=== PATIENT | female | born 1940 | race Caucasian/White ===

== ENCOUNTER → 2018-04-28 12:02 | Outpatient (CLI) | payer MEDICARE, SELFPAY ==
[2017-10-27 12:18] VITALS: BMI 29.9
== END ==
PROVIDERS: Family Provider Family Medicine; PCP Family Medicine
DX: R30.0 Dysuria (principal)
CPT/HCPCS: 87086; 87088; 87186

== ENCOUNTER → 2018-05-25 16:56 | Outpatient (CLI) | payer MEDICARE, SELFPAY ==
[2017-10-27 12:18] VITALS: BMI 29.9
== END ==
PROVIDERS: Family Provider Family Medicine; PCP Family Medicine; Referring Provider Emergency Medicine; Visit Provider Emergency Medicine
DX: R30.0 Dysuria (principal)
CPT/HCPCS: 87086; 87088; 87186

== ENCOUNTER → 2018-06-06 12:16 | Outpatient (CLI) | payer MEDICARE, SELFPAY ==
--- NOTE | 2018-06-06 12:20 | US_ITS ---
STUDY: RENAL ULTRASOUND - COMPLETE REASON FOR EXAM: Female, 78 years old. Recurring UTIs. TECHNIQUE: Ultrasound evaluation of the kidneys was performed with real-time and static hugo-scale imaging. COMPARISON: None. FINDINGS: RIGHT KIDNEY: Normal location of the right kidney, which is normal in size. The right kidney measures 10.5 cm. There is a normal cortex of the right kidney. The renal cortex measures 1.3 cm. There is no right renal mass or cyst. There are no right renal calculi. There is an extra-renal pelvis of the right kidney. There is no distention of the renal calyces. DISTAL RIGHT URETER: There is non-visualization of the distal right ureter. There is no demonstrated right ureterovesical junction calculus. There is no demonstrated right ureteral jet. LEFT KIDNEY: Normal location of the left kidney, which is normal in size. The left kidney measures 10.3 cm. There is a normal cortex of the left kidney. The renal cortex measures 1.3 cm. There is no left renal mass or cyst. There are no left renal calculi. There is no left hydronephrosis. DISTAL LEFT URETER: There is non-visualization of the distal left ureter. There is no demonstrated left ureterovesical junction calculus. There is no demonstrated left ureteral jet. BLADDER: The distended urinary bladder has a volume of 800 ml. There is a normal wall thickness of the distended urinary bladder. There is no demonstrated mass within the urinary bladder. There are no demonstrated bladder calculi. US/Kidney and Bladder IMPRESSION: 1. Normal ultrasound of the kidneys. 2. Markedly distended urinary bladder without mass or filling defect. Electronically Signed: Nacho Bhandari DO at 23:55 EDT Tel [phone], Service support ,
== END ==
PROVIDERS: Family Provider Family Medicine; PCP Family Medicine; Referring Provider Urology; Visit Provider Urology
DX: N39.0 Urinary tract infection, site not specified (principal)
CPT/HCPCS: 76770

== ENCOUNTER 2018-07-24 11:23 | Day surgery (SDC) | payer MEDICARE, SELFPAY ==
[2018-07-24 11:47] VITALS: BP 137/71; PULSE 64; RESP 18; TEMP 37.1; O2SAT 96; BMI 32.3
[2018-07-24] MEDS: Povidone Iodine 30 ML Opthalmic Sol 1 DRP (12:33)
[2018-07-24] MEDS: Tetracaine 0.5% Ophthalmic Bottle 1 DRP (13:15)
[2018-07-24] MEDS: Tetracaine 0.5% Ophthalmic Bottle 1 DRP OP (13:15)
--- NOTE | 2018-07-24 13:29 | DCINST_ITS ---
Allergies/Adverse Reactions: Allergies No Known Allergies Allergy (Unverified 07/17/18 12:55) Medications to take at Discharge Ascorbic Acid [Vitamin C] 500 mg PO DAILY 07/17/18 Calcium Carbonate/Vitamin D3 [Caltrate 600 Plus D3 Tablet] 2 each PO DAILY 07/17/18 Cholecalciferol (Vitamin D3) [Vitamin D3] 2,000 unit PO DAILY 07/17/18 Cranberry Fruit [Cranberry] 800 mg PO DAILY 07/17/18 Multivitamin with Minerals [Multiple Vitamin] 1 each PO DAILY 07/17/18 Omeprazole Magnesium [Prilosec Otc] 20 mg PO PRN PRN 07/17/18 Cataract Instructions: -Take a pain reliever such as Tylenol, Aspirin or Ibuprofen if needed for eye aching or pain. If this is not enough relief for you pain, call your doctor (or the doctor educational technology coordinator), even at night. -You are scheduled for a follow-up appointment at [facility] the day after surgery. You should have someone drive you. -Transient pain and irritation are due to the incision that was made at the time of surgery and do not indicate any trouble. Our office numbers are . If there is no answer, or if it is after our normal business hours, call your surgeon. My home phone number is: Dr. Donita Meeks INSTRUCTIONS FOLLOWING TOPICAL ANESTHETIC CATARACT SURGERY Protect operated eye with glasses or metal shield at all times. Instill one drop of Polytrim (or other antibiotic drop), one drop of Prednisolone and one drop of Acular in the operated eye four times a day (breakfast, lunch, dinner, and bedtime) until the doctor tells you to quit or decrease them. Wait 3-5 minutes between each drop. Please begin these immediatel y upon arriving at home. if your surgery is in t he afternoon, try to use the drops at least three more times the day of surgery and again the following morning before your appointment. INSTRUCTIONS FOLLOWING RETROBULBAR CATARACT SURGERY Keep the eye patch and metal shield on until you see your surgeon the day after surgery - these will be removed in the office that day. Do not drive while the patch is on your eye. You will be instructed about the use of drops for the operated eye at that visit. Primary Care Physician: Virgilio Henry MD [Primary Care Provider] -
--- NOTE | 2018-07-24 13:29 | PCM.OPRPT ---
Report of Operation Date of Procedure: 07/24/18 Pre-Operative Diagnosis: Cataract Left Eye Post-Operative Diagnosis: same Surgery/Procedure Performed:: PEM IOL OS Description of Surgical Findings:: cataract Type of Anesthesia:: MAC and Topical Anesth Specimen's removed: none Estimated Blood Loss (mL): none - Complications none
[2018-07-24 13:30] VITALS: BP 111/63; BP 137/71; PULSE 51; RESP 16; TEMP 36.1; O2SAT 95
[2018-07-24 13:35] VITALS: BP 117/75; BP 137/71; PULSE 66; RESP 16; O2SAT 92
[2018-07-24 13:40] VITALS: BP 117/70; BP 137/71; PULSE 59; RESP 16; O2SAT 93
[2018-07-24 13:45] VITALS: BP 110/69; BP 137/71; PULSE 51; RESP 16; TEMP 36.3; O2SAT 92
[2018-07-24 14:10] VITALS: BP 137/71
== END 2018-07-24 14:18 | disposition home or self-care (01) ==
LOC: SDC 11:24 → AC 11:29
PROVIDERS: Family Provider Family Medicine; PCP Family Medicine; Referring Provider Ophthalmology; Visit Provider Ophthalmology
PROC: (CPT 66984; principal; 2018-07-24 12:50)
DX: H25.812 Combined forms of age-related cataract, left eye (principal); H16.223 Keratoconjunctivitis sicca, not specified as Sjogren's, bilateral
CPT/HCPCS: 00142; 66984; J7120

== ENCOUNTER → 2018-09-15 | Outpatient (CLI) | payer MEDICARE, SELFPAY ==
[2018-09-15 14:00] LABS: Hematocrit 43.2 % (37-47); Hemoglobin 14.4 g/dl (12.0-15.0); Mean Corp Hgb Conc 33.3 g/gl (32-36); Mean Corpuscular Hgb 30.8 pg (27.0-32.0); Mean Corpuscular Volume 92.5 fL (81-99); Mean Platelet Vol. 10.3 fl (6.2-12.0); Platelet Count 219 K/mm3 (150-450); RBC Distribution Width SD 46.9 fl (35.1-43.9); Red Blood Count 4.67 M/mm3 (4.2-5.4); White Blood Count 5.6 K/mm3 (4.4-11.0)
[2018-09-15 14:01] LABS: Scan Indicated on CBC? Y/N NO
[2018-09-15 14:12] LABS: Anion Gap 4 (5-15); BUN 17 mg/dL (7-18); Chloride 108 mmol/L (98-107); Creatinine, Serum 0.66 mg/dL (0.55-1.02); EST Glomerular Filtration Rate 93 mL/min (>60); Est Glom Filt Rate - Afr Amer 113 mL/min (>60); Glucose 85 mg/dL (74-106); Sodium Level 141 mmol/L (136-145); Thyroid Stim Hormone (TSH) 2.37 uIU/mL (0.358-3.74)
== END | disposition home or self-care (01) ==
LOC: LABSPEC 13:26
PROVIDERS: Family Provider Family Medicine; PCP Family Medicine; Referring Provider Physician Assistant; Visit Provider Physician Assistant
DX: R00.2 Palpitations (principal)
CPT/HCPCS: 80048; 82533; 84443; 85027

== ENCOUNTER → 2018-09-29 | Outpatient (CLI) | payer MEDICARE, SELFPAY ==
--- NOTE | 2018-09-29 12:22 | STRESSREP_ITS ---
Stress Test Report Date: 09-29-18 Procedure: Exercise tolerance test Indications: Palpitations Consent: Per the patient Procedure: The patient exercised on a Marcel protocol for 6 minutes completing stage II achieving a peak heart rate of 150 bpm (104 % predicted maximal heart rate) with a peak blood pressure 158/82 mmHg and a peak MET capacity of approximately 7 MET's. The baseline ECG demonstrated sinus bradycardia. The peak exercise ECG demonstrated somatic/motion artifact with no obvious ECG changes. There was a rare PVC during exercise and an occasional PAC during recovery. The functional capacity was considered good. The patient had no complaint of chest discomfort during exercise or recovery. The examination was discontinued secondary to dyspnea. Impression: 1. Technically adequate (percent predicted maximal heart rate greater than 85%) exercise tolerance test 2. Peak exercise ECG with somatic/motion artifact with no obvious ECG changes 3. There was a rare PVC during exercise and an occasional PAC during recovery This note was generated with [employer] software. It may contain incorrect words, spelling, and punctuation that were not noted in checking the note before signing.
== END | disposition home or self-care (01) ==
LOC: CVS 11:11
PROVIDERS: Family Provider Family Medicine; PCP Family Medicine; Referring Provider Physician Assistant; Visit Provider Physician Assistant
DX: R07.89 Other chest pain (principal); R00.2 Palpitations
CPT/HCPCS: 93017

== ENCOUNTER → 2018-12-05 | Outpatient (CLI) | payer MEDICARE, SELFPAY ==
[2018-12-05 12:29] LABS: Cholesterol 188 mg/dL (200); Glucose 100 mg/dL (74-106); High Density Lipoprotein 67 mg/dL; Triglycerides 90 mg/dL; Very Low Density Lipoprotein 18 mg/dL (5-40)
== END | disposition home or self-care (01) ==
LOC: LABSPEC 11:31
PROVIDERS: Family Provider Family Medicine; PCP Family Medicine; Referring Provider Family Medicine; Visit Provider Family Medicine
DX: Z13.1 Encounter for screening for diabetes mellitus (principal); Z13.6 Encounter for screening for cardiovascular disorders; Z13.220 Encounter for screening for lipoid disorders
CPT/HCPCS: 80061; 82947

== ENCOUNTER → 2019-08-23 09:20 | Outpatient (CLI) | payer MEDICARE, SELFPAY ==
[2019-08-23 10:38] LABS: Creatinine, Serum 0.56 mg/dL (0.55-1.02); EST Glomerular Filtration Rate 111 mL/min (>60); Est Glom Filt Rate - Afr Amer 134 mL/min (>60)
== END ==
PROVIDERS: PCP Family Medicine; Referring Provider Specialist; Visit Provider Specialist
DX: R22.32 Localized swelling, mass and lump, left upper limb (principal)
CPT/HCPCS: 36415; 82565

== ENCOUNTER 2020-06-10 17:42 | Emergency (ER) | payer MEDICARE, SELFPAY ==
[2020-06-10 17:42] VITALS: BP 156/100; PULSE 72; PULSE 86; RESP 16; TEMP 36.3; O2SAT 96; BMI 36.6
--- NOTE | 2020-06-10 17:51 | EKG12_ITS ---
Test Reason : CP Blood Pressure : / mmHG Vent. Rate : 074 BPM Atrial Rate : 074 BPM P-R Int : 142 ms QRS Dur : 092 ms QT Int : 388 ms P-R-T Axes : 052 -12 023 degrees QTc Int : 430 ms Normal sinus rhythm with sinus arrhythmia Normal ECG Confirmed by SANTHOSH MO, COLE ([id number]), digital editor ZACH LAMA ([id number]) on 06/12/2020 12:56:55 PM Referred By: YOHANNES Confirmed By:COLE TREVIZO MD
--- NOTE | 2020-06-10 17:53 | ED.DCSUM_ITS ---
History of Present Illness Chief Complaint: Chest Pain Informant: Patient Onset: Today Context: Gradual Onset Timing: Continuous Current Severity: Mild Maximum Severity: Moderate Narrative: The patient is a 80-year-old female with no significant medical history who is on no prescription medications the presents to the emergency department with chest tightness. Patient states she was in her normal state of health. She states she was sitting reading on her iPad. She states that she had a slight twinge in her chest. She states shortly after it began to increase. She states it felt like she had 8 something and it was stuck. She denies being short of breath or nauseated. The pain did not radiate to her neck or arm. She states she is never had pain like this before. She does have a history of aortic stenosis. She is never had a heart attack, heart failure, or cardiac intervention. She states she is been in her normal state of health. Prior similar symptoms: No Recent Illness/Hospitalization: No Past Medical History - Allergies and Home Meds Allergies/Adverse Reactions: Allergies No Known Allergies Allergy (Unverified 07/17/18 12:55) Primary Care Physician: Virgilio Henry MD [Primary Care Provider] - Prior records reviewed: Yes Past Medical History: None Surgical History: noncontributory Smoking Status: Never smoker Review of Systems General: Denies: Chills, Fever, Sweats Eyes: Denies: Visual changes - bilaterally, Diplopia ENT: Denies: Rhinorrhea, Sore throat Cardiovascular: Denies: Chest pain, Palpitations Respiratory: Denies: Dyspnea, Cough, Dyspnea on exertion Gastrointestinal: Denies: Abdominal pain, Nausea, Vomiting, Diarrhea, Melena, Hematochezia Genitourinary: Denies: Dysuria, Hematuria, Frequency Musculoskeletal: Denies: Back pain, Extremity Pain Skin: Denies: Rash, Wounds Neurological: Denies: Headache, Weakness, Numbness Physical Exam Vital Signs/Narrative: Vital Signs Temp Pulse Resp BP Pulse Ox 06/10/20 17:42 97.4 F L 72 16 156/100 H 96 Inital Vital Signs reviewed: Yes General: Well nourished, Well developed, No Acute Distress Head: Normocephalic, Atraumatic Eyes: Perrl, EOMI ENT: Moist mucous membranes, No rhinorrhea Neck: Supple, Nontender Cardiovascular: Regular rate, Regular rhythm, No murmurs Respiratory: No distress, CTA bilaterally, Chest nontender Abdomen: Soft, Nontender, Nondistended, Normal bowel sounds Back: Nontender, Normal Inspection Extremities: Nontender, No edema Skin: Normal color, No rash Neurological: Alert, Oriented x3, Cranial nerves II-XII grossly intact, Normal Strength, Normal Sensation Psychological: Normal affect, Normal Mood Diagnostic/Tx/Re-eval Chest X-Ray - ED: 1 View, Read by ED Physician, Normal, Heart, Lungs, Mediastinum, Bony Structures, No Acute Disease Clinical Impression(s) from Imaging Studies Chest X-Ray 06/10/20 18:05 IMPRESSION: No acute cardiopulmonary disease or major change. Electronically Signed: Nacho ThonyDO at 18:46 EDT Tel [phone], Service support , Abnormal Lab Results 06/10/20 06/10/20 18:15 18:15 WBC 3.8 L RBC 4.75 Hgb 14.8 Hct 44.7 MCV 94.1 MCH 31.2 MCHC 33.1 RDW Std Deviation 43.6 RDW Coeff of Evangelist 12.7 Plt Count 235 MPV 9.2 Immature Gran % (Auto) 1.900 H Neut % (Auto) 62.7 Lymph % (Auto) 32.4 [place] % (Auto) 1.1 Eos % (Auto) 1.6 Baso % (Auto) 0.3 Absolute Neuts (auto) 2.4 Absolute Lymphs (auto) 1.22 Nucleated RBC % 0 Sodium 141 Potassium 3.6 Chloride 106 Carbon Dioxide 30.0 Anion Gap 5 BUN 16 Creatinine 0.71 Estim Creat Clear Calc 33.30 Est GFR (MDRD) Af Amer 103 Est GFR (MDRD) Non-Af 85 BUN/Creatinine Ratio 22.6 H Glucose 90 Calcium 9.1 Troponin I < 0.015 - Rhythm Strip Rhythm Strip: Sinus Rhythm Rate: 80 Ectopy: None - EKG Initial EKG Interpretation: Sinus Rhythm, No Acute Injury Pattern Prior: Unchanged - Medical Decision Making Patient presents with burning and feeling like something is stuck is how she describes her chest pain. EKG was obtained. Was sinus rhythm without acute isc hemia. Was unchanged from prior. The patient's pain status seem very atypical. She had a stress test less than 2 years ago which was unremarkable. She is also had a normal heart catheterization. Patient was given aspirin. She was also given a GI cocktail. GI cocktail, her symptoms have totally resolved. Screening labs were obtained. Cardiac enzymes were normal. Chest x-ray reviewed by myself and the radiologist shows no focal infiltrative process, pneumothorax, or anything dangerous. On reevaluation, she continues to be resting comfortably. At this point, her heart score is only 2 for her age. I do not feel that she requires admission or further work-up. She is comfortable with this plan of care and will be discharged home. Impression 1. Atypical chest pain ED Disposition - Plan for ED Patient: Instructions: ED Chest Pain, Noncardiac Referrals: Virgilio Henry MD [Primary Care Provider] -
[2020-06-10] MEDS: Mag Hydrox/Al Hydrox/Simeth 30 ML UDC PO (18:02)
[2020-06-10] MEDS: Aspirin 81 MG TAB.CHEW 324 MG PO (18:02)
--- NOTE | 2020-06-10 18:05 | RAD_ITS ---
STUDY: X-RAY CHEST REASON FOR EXAM: Female, 80 years old. Chest pain. TECHNIQUE: Single AP portable view of the chest. COMPARISON: 02/25/2014. FINDINGS: The lungs are mildly hypoexpanded. Question minimal linear atelectasis at the right lung base. The lungs are otherwise clear. There is no demonstrated pleural abnormality. Normal size heart. Normal mediastinum and ronnie. Normal visualized pulmonary arteries. There is atherosclerotic calcification of the aortic arch with tortuosity. There are diffuse degenerative changes of the visualized thoracic spine. Normal visualized ribs, clavicles, and shoulders. There is no demonstrated abnormality of the visualized soft tissue structures of the upper abdomen. RAD/Chest 1 View (Portable) IMPRESSION: No acute cardiopulmonary disease or major change. Electronically Signed: Nacho Bhandari DO at 18:46 EDT Tel [phone], Service support ,
[2020-06-10] MEDS: 0.9% Normal Saline 1,000 ML 150 ML IV (18:13)
[2020-06-10 18:17] VITALS: O2SAT 96
[2020-06-10 18:21] LABS: Absolute Lymphocyte Count 1.22 X10^3/uL (0.83-4.51); Absolute Neutrophil Count 2.4 X10^3/uL (2.0-7.7); Basophil# 0.01 X10^3/uL; Basophil% 0.3 % (0-1); Eosinophil# 0.06 X10^3/uL; Eosinophils% 1.6 % (0-5); Hematocrit 44.7 % (37-47); Hemoglobin 14.8 g/dL (12.0-15.0); Lymphocyte # 1.22 X10^3/ul (4.0); Lymphocyte % 32.4 % (19-41); Mean Corp Hgb Conc 33.1 g/dL (32-36); Mean Corpuscular Hgb 31.2 pg (27.0-32.0); Mean Corpuscular Volume 94.1 fL (81-99); Mean Platelet Vol. 9.2 fl (6.2-12.0); Monocyte# 0.04 X10^3/uL; Monocyte% 1.1 % (0-10); NRBC Flagged by Analyzer 0 % (0-5); Neutrophil # 2.37 X10^3/uL (2.7-7.7); Neutrophil % 62.7 % (47-70); Platelet Count 235 K/mm3 (150-450); RBC Distribution Width CV 12.7 % (11.6-14.6); RBC Distribution Width SD 43.6 fl (35.1-43.9); Red Blood Count 4.75 M/mm3 (4.2-5.4); White Blood Count 3.8 K/mm3 (4.4-11.0)
[2020-06-10 18:40] LABS: Anion Gap 5 (5-15); BUN 16 mg/dL (7-18); BUN/Creat Ratio 22.6 RATIO (10-20); Calcium,Total 9.1 mg/dL (8.5-10.1); Chloride 106 mmol/L (98-107); Creatinine, Serum 0.71 mg/dL (0.55-1.02); EST Glomerular Filtration Rate 85 mL/min (>60); Est Glom Filt Rate - Afr Amer 103 mL/min (>60); Glucose 90 mg/dL (74-106); Potassium 3.6 mmol/L (3.5-5.1); Sodium Level 141 mmol/L (136-145)
[2020-06-10 18:59] VITALS: BP 169/77; PULSE 84; RESP 14; O2SAT 95
[2020-06-10 19:00] VITALS: PULSE 85
== END 2020-06-10 19:07 | disposition home or self-care (01) ==
LOC: ED 18:49
PROVIDERS: Emergency Provider Emergency Medicine; PCP Family Medicine
DX: R07.89 Other chest pain (principal)
CPT/HCPCS: 71045; 80048; 84484; 85025; 93005; 99284; J7030

== ENCOUNTER → 2020-09-10 12:20 | Outpatient (CLI) | payer MEDICARE, SELFPAY | PROVIDERS: PCP Family Medicine; Visit Provider Physician Assistant | DX: R10.13 Epigastric pain (principal); R11.0 Nausea | CPT/HCPCS: 87086; 87088 ==

== ENCOUNTER 2020-10-04 08:16 | Observation (INO) | payer MEDICARE, SELFPAY ==
[2020-10-04] VITALS (13 sets, daily range): BP systolic 106–142; BP diastolic 49–84; PULSE 66–96; RESP 14–18; TEMP 36.4–36.9; O2SAT 89–99; BMI 36.8; BMI 35.9
--- NOTE | 2020-10-04 08:30 | EKG12_ITS ---
Test Reason : SYNCOPE Blood Pressure : / mmHG Vent. Rate : 070 BPM Atrial Rate : 070 BPM P-R Int : 140 ms QRS Dur : 086 ms QT Int : 424 ms P-R-T Axes : 057 -09 036 degrees QTc Int : 457 ms Normal sinus rhythm Normal ECG Confirmed by SUDHAKAR MO, ESPERANZA ([id number]), editor dictionary ZACH LAMA ([id number]) on 10/08/2020 8:55:49 AM Referred By: JOSEFA Confirmed By:ESPERANZA DE LA FUENTE MD
--- NOTE | 2020-10-04 08:31 | EX.ED.DYSGE1 ---
HPI History of Present Illness Chief Complaint: Syncope Detail of Chief Complaint: Not feeling well and near syncope Informant: patient Narrative Narrative: Patient presents to the emergency department via EMS from home. Patient states that she woke up this morning and was not feeling very good so she went into the bathroom to take her temperature and remembers feeling somewhat lightheaded and kind fell to the ground but did not lose consciousness. Patient apparently went back to bed after taking some ibuprofen. She started feeling a little bit itchy and lightheaded and EMS was called. She denies chest pain currently. She denies shortness of breath. Patient has been vaccinated against Covid. Patient states that she feels like she came down with a cold 2 days ago. She has had a runny nose and congestion. She denies cough. She was seen in the emergency department for chest heaviness about a month ago but was not admitted. Patient was diagnosed with GERD. EMS noted patient to be hypoxic with O2 sat in the upper 80s. Patient also had orthostatic vital signs performed by EMS and her blood pressure dropped into the 80s with standing and she was lightheaded. Prior similar symptoms: No PFSH PFSH Medical History (Updated 10/04/20 @ 12:[address] Yolis Castañeda, DO) history of bladder lift history of eye lid surgery History of neuroma Home Medications ascorbic acid (vitamin C) 500 mg PO DAILY 07/17/18 [History Last Taken Unknown] calcium carbonate-vitamin D3 [Caltrate 600 Plus D3 Tablet] 2 ea PO DAILY 07/17/18 [History Last Taken 07/24/18 0800] cholecalciferol (vitamin D3) [Vitamin D3] 2,000 unit PO DAILY 07/17/18 [History Last Taken Unknown] cranberry fruit 800 mg PO DAILY 07/17/18 [History Last Taken Unknown] multivitamin with minerals [Multiple Vitamin] 1 ea PO DAILY 07/17/18 [History Last Taken Unknown] omeprazole magnesium [Prilosec Otc] 40 mg PO DAILY 07/17/18 [History Last Taken Unknown] Allergy/AdvReac Type Severity Reaction Status Date / Time No Known Allergies Allergy Unverified 10/04/20 08:27 Surgical History History of appendectomy Social History (Updated 10/27/17 @ 14:38 by Roberto LOPEZ, PA) Smoking Status: Never smoker alcohol intake: never ROS ROS ED Constitutional Constitutional ED: Reports systems reviewed and no addt'l complaints, except as documented; Denies body ache(s), change in weight or chills Eyes Eyes: Denies acute decrease in peripheral vision, change in vision, double vision or loss of vision ENT ENT ED: Reports none and rhinorrhea; Denies ear pain, lip swelling, loss taste/smell, neck pain, otalgia or sore throat Cardiovascular Cardiovascular: Reports none; Denies abdominal pain, chest pain with activity, leg edema, lightheadedness, palpitations, rapid heart rate or syncope Respiratory/Chest Respiratory/Chest: Reports none; Denies change in mental status, dry cough, dyspnea, hemoptysis, shortness of breath at rest or shortness of breath with exertion Gastrointestinal Gastrointestinal: Reports none; Denies abdominal pain, change in stool character, diarrhea, hematemesis, hematochezia, melena, rectal bleeding or vomiting Genitourinary Genitourinary ED: Reports none; Denies abdominal discomfort, anuria, dysuria, genital pain or polyuria Musculoskeletal Musculoskeletal: Reports none; Denies arthralgias, back pain, difficulty walking, extremity pain, muscle weakness or myalgias Integumentary Reports none; Denies abscess or rash Neurologic Neurologic: Reports none and other Details: Near syncope, dizziness ; Denies abnormal gait, confusion, focal weakness, frequent falls, headache(s), loss of vision, numbness, paresthesias, radicular pain, vertigo or weakness Psychiatric Psychiatric: Reports systems reviewed and no addt'l complaints, except as documented and none; Denies behavioral changes, confusion, difficulty concentrating, hallucinations, suicidal ideation, tactile hallucinations or visual hallucinations Endocrine Endocrinology: Denies none, cold intolerance, excessive sweating, fatigue or heat intolerance Hematologic/Lymphatic Hematologic/Lymphatic: Reports none; Denies anemia, easy bleeding or easy bruising Allergic/Immunologic Allergic/Immunologic ED: Denies as per HPI, none, lip swelling, mouth swelling, throat swelling, tongue swelling or hives EXAM Physical Exam Const Vital Signs: 10/04/20 08:22 10/04/20 08:26 10/04/20 08:41 Temperature 97.5 F L 97.5 F L Temperature Source Oral Oral Pulse Rate 85 83 Respiratory Rate 18 16 Respiratory Effort Normal Respiratory Pattern Normal Blood Pressure 126/49 H 126/49 H Blood Pressure Mean 74 74 Pulse Ox 89 89 Oxygen Delivery Method Room Air Room Air Oxygen Flow Rate (L/min) 0 10/04/20 09:00 10/04/20 10:00 10/04/20 11:00 Temperature Temperature Source Pulse Rate 66 88 89 Respiratory Rate 15 14 16 Respiratory Effort Respiratory Pattern Blood Pressure 124/84 H 117/72 113/70 Blood Pressure Mean 97 87 84 Pulse Ox 99 93 93 Oxygen Delivery Method Nasal Cannula Nasal Cannula Nasal Cannula Oxygen Flow Rate (L/min) 2 2 2 Positive well nourished and well developed General Appearance ED: well developed and NAD HEENT Reports TM's clear and moist mucous membranes normocephalic and atraumatic; Negative for trauma or tenderness Tympanic Membrane ED: Yes TM's clear Eyes PERRL and EOMs intact bilaterally General Eye ED: Negative for pale conjunctiva or scleral icterus Neck no lymphadenopathy, supple and no JVD General: Negative for tenderness Chest Wall inspection of chest normal and palpation of chest normal Chest: Negative for tenderness Resp normal respiratory effort and clear to auscultation bilaterally Effort and Inspection: Negative for respiratory distress or pain with movement Auscultation: Negative for rhonchi, wheezes or diminished lung sounds Cardio regular rate, regular rhythm, S1 normal heart sound, S2 normal heart sound and no murmurs Peripheral Pulses: pulses 2+ throughout GI normal to inspection, nondistended, normoactive bowel sounds, soft to palpation, non-tender, non-distended and no masses Back/Spine no CVA tenderness and no thoracic nor lumbar tenderness Extremity normal to inspection General Extremety ED: Negative for edema General Extremity: Negative for edema Neuro oriented x3, CN's II-XII intact bilaterally, no sensory deficits noted and gait normal Sensorium / Orientation: awake, alert, oriented to person, oriented to place and oriented to time Motor Exam: strength 5/5 throughout and strength abnormal Psych mental status grossly normal Skin no rashes or lesions noted and no wounds MDM MDM MDM Narrative Medical decision making narrative: Etiology of hypotension unclear I suspect patient may have possibly vasovagal leading to her hypotension. She was orthostatic by EMS. Etiology of hypoxemia unclear although now on room air she saturating in the mid 90s. Patient will be discussed with hospitalist evaluate for admission for observation and IV fluids. Lab Data Attestation: I reviewed the patient's lab results. Labs: Laboratory Results - last 24 hr 10/04/20 10/04/20 10/04/20 08:40 08:40 08:40 WBC 3.6 L RBC 4.92 Hgb 15.2 H Hct 45.6 MCV 92.7 MCH 30.9 MCHC 33.3 RDW Std Deviation 43.5 RDW Coeff of Evangelist 12.8 Plt Count 198 MPV 9.2 Immature Gran % (Auto) 0.300 Neut % (Auto) 73.5 H Lymph % (Auto) 22.8 [place] % (Auto) 1.4 Eos % (Auto) 1.7 Baso % (Auto) 0.3 Absolute Neuts (auto) 2.6 Absolute Lymphs (auto) 0.81 L Nucleated RBC % 0 D-Dimer Quant (PE/DVT) 1.01 H* Sodium 139 Potassium 3.2 L Chloride 105 Carbon Dioxide 27.0 Anion Gap 7 BUN 13 Creatinine 0.78 Estim Creat Clear Calc 33.30 Est GFR (MDRD) Af Amer 91 Est GFR (MDRD) Non-Af 75 BUN/Creatinine Ratio 16.6 Glucose 141 H Calcium 8.6 Troponin I High Sens 6.1 B-Natriuretic Peptide Urine Color Urine Clarity Urine pH Ur Specific [place] Urine Protein Urine Glucose (UA) Urine Ketones Urine Occult Blood Urine Nitrite Urine Bilirubin Urine Urobilinogen Ur Leukocyte Esterase Urine RBC Urine WBC Ur Squamous Epith Cells Urine Bacteria Urine Mucus 10/04/20 10/04/20 08:40 09:22 WBC RBC Hgb Hct MCV MCH MCHC RDW Std Deviation RDW Coeff of Evangelist Plt Count MPV Immature Gran % (Auto) Neut % (Auto) Lymph % (Auto) [place] % (Auto) Eos % (Auto) Baso % (Auto) Absolute Neuts (auto) Absolute Lymphs (auto) Nucleated RBC % D-Dimer Quant (PE/DVT) Sodium Potassium Chloride Carbon Dioxide Anion Gap BUN Creatinine Estim Creat Clear Calc Est GFR (MDRD) Af Amer Est GFR (MDRD) Non-Af BUN/Creatinine Ratio Glucose Calcium Troponin I High Sens B-Natriuretic Peptide 27.9 Urine Color Yellow Urine Clarity Clear Urine pH 6.0 Ur Specific [place] 1.020 Urine Protein 15 H Urine Glucose (UA) Normal Urine Ketones Negative Urine Occult Blood Negative Urine Nitrite Negative Urine Bilirubin Negative Urine Urobilinogen 1 H Ur Leukocyte Esterase 100 H Urine RBC 0 SEEN Urine WBC 0-5 SEEN Ur Squamous Epith Cells 0-5 SEEN Urine Bacteria 1+ Urine Mucus 1+ Radiography Diagnostic Testing: Radiology Impression Chest X-Ray 10/04/20 08:53 IMPRESSION: Normal x-ray examination of the chest. Electronically Signed: Moo Martin MD at 9:36 EDT Tel , Service support , Chest CTA 10/04/20 10:07 IMPRESSION: Normal CTA chest examination, without a demonstrated pulmonary embolism or arterial dissection. Electronically Signed: Moo Martin MD at 11:29 EDT Tel , Service support , EKG Initial EKG: Attestation: I personally reviewed and interpreted this EKG as follows: Comments: Sinus rhythm with a ventricular rate of 70 bpm with no acute ST segment changes. Discharge Plan Triage Chief Complaint: Syncope ED Provider: Yolis Castañeda Dx/Rx/DC Orders Clinical Impression: Syncope, Orthostatic hypotension, Hypoxemia Prescriptions: No Action multivitamin with minerals [Multiple Vitamin-Minerals] 1 EACH tablet 1 ea PO DAILY RF: 0 cholecalciferol (vitamin D3) [Vitamin D3] 2,000 UNIT capsule 2,000 unit PO DAILY RF: 0 cranberry fruit 400 MG tablet 800 mg PO DAILY RF: 0 calcium carbonate-vitamin D3 [Caltrate with Vitamin D3] 1 EACH tablet 2 ea PO DAILY RF: 0 ascorbic acid (vitamin C) 500 MG capsule 500 mg PO DAILY RF: 0 omeprazole magnesium [Prilosec OTC] 20 MG tablet,delayed release (DR/EC) 40 mg PO DAILY RF: 0 Primary Care Provider: Virgilio Henry Referrals: Virgilio Henry MD [Primary Care Provider] - Disposition Disposition: [facility]
[2020-10-04] MEDS: 0.9% Normal Saline 1,000 ML 150 ML IV ×3 (08:48→22:17)
[2020-10-04 08:50] LABS: Absolute Lymphocyte Count 0.81 X10^3/uL (0.83-4.51); Absolute Neutrophil Count 2.6 X10^3/uL (2.0-7.7); Basophil# 0.01 X10^3/uL; Basophil% 0.3 % (0-1); Eosinophil# 0.06 X10^3/uL; Eosinophils% 1.7 % (0-5); Hematocrit 45.6 % (37-47); Hemoglobin 15.2 g/dL (12.0-15.0); Lymphocyte # 0.81 X10^3/ul (0.83-4.51); Lymphocyte % 22.8 % (19-41); Mean Corp Hgb Conc 33.3 g/dL (32-36); Mean Corpuscular Hgb 30.9 pg (27.0-32.0); Mean Corpuscular Volume 92.7 fL (81-99); Mean Platelet Vol. 9.2 fl (6.2-12.0); Monocyte# 0.05 X10^3/uL; Monocyte% 1.4 % (0-10); NRBC Flagged by Analyzer 0 % (0-5); Neutrophil # 2.61 X10^3/uL (2.7-7.7); Neutrophil % 73.5 % (47-70); Platelet Count 198 K/mm3 (150-450); RBC Distribution Width CV 12.8 % (11.6-14.6); RBC Distribution Width SD 43.5 fl (35.1-43.9); Red Blood Count 4.92 M/mm3 (4.2-5.4); White Blood Count 3.6 K/mm3 (4.4-11.0)
--- NOTE | 2020-10-04 08:53 | RAD_ITS ---
STUDY: X-RAY CHEST REASON FOR EXAM: Female, 80 years old. hypoxia TECHNIQUE: Single AP portable view of the chest. COMPARISON: 06/10/2020 FINDINGS: The lungs are clear and expanded. There is no demonstrated pleural abnormality. Normal size heart. Normal mediastinum and ronnie. Normal visualized pulmonary arteries. Normal visualized aortic arch and descending thoracic aorta. Normal visualized thoracic spine. Normal visualized ribs, clavicles, and shoulders. There is no demonstrated abnormality of the visualized soft tissue structures of the upper abdomen. RAD/Chest 1 View (Portable) IMPRESSION: Normal x-ray examination of the chest. Electronically Signed: Moo Martin MD at 9:36 EDT Tel , Service support ,
[2020-10-04 09:06] LABS: Anion Gap 7 (5-15); BUN 13 mg/dL (7-18); BUN/Creat Ratio 16.6 RATIO (10-20); Calcium,Total 8.6 mg/dL (8.5-10.1); Chloride 105 mmol/L (98-107); Creatinine, Serum 0.78 mg/dL (0.55-1.02); EST Glomerular Filtration Rate 75 mL/min (>60); Est Glom Filt Rate - Afr Amer 91 mL/min (>60); Glucose 141 mg/dL (74-106); Potassium 3.2 mmol/L (3.5-5.1); Sodium Level 139 mmol/L (136-145); Troponin-I HS 6.1 pg/mL (3.0-53.7)
[2020-10-04 09:19] LABS: BNP,B-Type NATRIURETIC PEPTIDE 27.9 pg/mL (0-100)
[2020-10-04 09:20] LABS: D-Dimer Quantitative (DVT/PE) 1.01 FEU/ug/m (0.27-0.49)
[2020-10-04 09:30] LABS: Red Blood Cells-Urine 0 SEEN /hpf (0-5)
[2020-10-04 09:35] LABS: Color, Urine Yellow (Yellow); Glucose, Dipstick Normal (Normal); Ketone-Dipstick Negative (Negative); Leukocyte Esterase-Dipstick 100 /ul (Negative); Nitrite-Dipstick Negative (Negative); Occult Blood-Urine Negative /ul (Negative); Protein-Dipstick 15 mg/dl (Negative); Urine Bilirubin Dipstick Negative (Negative); Urine Clarity Clear (Clear); Urine Urobilinogen 1 mg/dl (Normal)
[2020-10-04 09:48] LABS: Bacteria 1+ /hpf (None Seen); Mucous, Urine 1+ /hpf (<or=2+); Squamous Epithelial Cells - UA 0-5 SEEN /hpf (5-10); White Blood Cells 0-5 SEEN /hpf (0-5)
--- NOTE | 2020-10-04 10:07 | CT_ITS ---
STUDY: CTA CHEST REASON FOR EXAM: Female, 80 years old. hypoxia, syncope RADIATION DOSAGE (If Supplied By Facility): CTDIvol = ( 10.3 ) mGy, DLP = ( 425.02 ) mGycm TECHNIQUE: The examination was performed with the intravenous administration of IV 75mL Isovue-370. Post-processing of the angiographic images was performed, with multiplanar reformation and 3D reconstruction. Individualized dose optimization techniques were used for this CT. COMPARISON: 03/14/2014 FINDINGS: Normal enhancement of the main pulmonary artery and right and left pulmonary arteries. Normal enhancement of the bilateral peripheral pulmonary arteries. There is no demonstrated pulmonary embolism. Normal thoracic aorta and visualized great vessels. There is no demonstrated aortic dissection. Normal heart and pericardium. Normal mediastinum. Normal hilar regions. Normal visualized trachea and bronchi. The lungs are well expanded. Normal pulmonary parenchyma. Normal pleura. Normal chest wall structures. Mild dextro scoliosis of the thoracic spine with degenerative disc disease. Normal visualized upper abdomen. CT/CTA Chest W/WO Contrast IMPRESSION: Normal CTA chest examination, without a demonstrated pulmonary embolism or arterial dissection. Electronically Signed: Moo Martin MD at 11:29 EDT Tel , Service support ,
--- NOTE | 2020-10-04 12:39 | PCM.HP.STD ---
HPI - General General Date of Admission: 10/04/20 Date of Service: 10/04/20 Chief Complaint: syncope HPI Narrative LUCRECIA COONEY, is a 80 F who presents after syncopal event. Patient was going into her kitchen to check her temperature because she was not feeling well. Was having some nasal congestion and just felt that her voice was deeper like she was getting a cold and then passed out. Patient has minimal recollection of the event. EMS was contacted and patient was brought to the hospital. In the midst of all this, patient developed a diffuse rash that resolved spontaneously. In the emergency room, patient underwent an aggressive work-up including CTA, EKG and troponins all of which were negative. Patient denies any new medications nor any new animals. Patient yesterday was eating fine and drinking fine and nothing out of the ordinary. 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 Patient being admitted for further monitoring regards to her syncope. [facility] Medical History (Updated 10/04/20 @ 12:[address] 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 history of bladder lift history of eye lid surgery History of neuroma Home Medications ascorbic acid (vitamin C) 500 mg PO DAILY 07/17/18 [History Last Taken Unknown] calcium carbonate-vitamin D3 [Caltrate 600 Plus D3 Tablet] 2 ea PO DAILY 07/17/18 [History Last Taken 07/24/18 0800] cholecalciferol (vitamin D3) [Vitamin D3] 2,000 unit PO DAILY 07/17/18 [History Last Taken Unknown] cranberry fruit 800 mg PO DAILY 07/17/18 [History Last Taken Unknown] multivitamin with minerals [Multiple Vitamin] 1 ea PO DAILY 07/17/18 [History Last Taken Unknown] omeprazole magnesium [Prilosec Otc] 40 mg PO DAILY 07/17/18 [History Last Taken Unknown] Allergy/AdvReac Type Severity Reaction Status Date / Time No Known Allergies Allergy Unverified 10/04/20 08:27 Surgical History (Updated 10/04/20 @ 12:[address] Dread Griggs DO) History of appendectomy History of strabismus surgery Social History Smoking Status: Never smoker alcohol intake: never ROS ROS Narrative All review of systems were negative except as mentioned above in the history of present illness and the other review of systems. Vital Signs Vital Signs Vital Signs: 10/04/20 08:22 10/04/20 08:26 10/04/20 08:41 Temperature 36.4 C L 36.4 C L Temperature Source Oral Oral Pulse Rate 85 83 Respiratory Rate 18 16 Respiratory Effort Normal Respiratory Pattern Normal Blood Pressure 126/49 H 126/49 H Blood Pressure Mean 74 74 Pulse Ox 89 89 Oxygen Delivery Method Room Air Room Air Oxygen Flow Rate (L/min) 0 10/04/20 09:00 10/04/20 10:00 10/04/20 11:00 Temperature Temperature Source Pulse Rate 66 88 89 Respiratory Rate 15 14 16 Respiratory Effort Respiratory Pattern Blood Pressure 124/84 H 117/72 113/70 Blood Pressure Mean 97 87 84 Pulse Ox 99 93 93 Oxygen Delivery Method Nasal Cannula Nasal Cannula Nasal Cannula Oxygen Flow Rate (L/min) 2 2 2 10/04/20 12:13 Temperature 36.6 C Temperature Source Temporal Pulse Rate 87 Respiratory Rate 16 Respiratory Effort Respiratory Pattern Blood Pressure 142/77 H Blood Pressure Mean 98 Pulse Ox 94 Oxygen Delivery Method Ambu-Bag Oxygen Flow Rate (L/min) 2 Weight Weight: 85.7 kg Body Mass Index (BMI) 36.8 Physical Exam Const alert, oriented x3 and no apparent distress General Appearance: cooperative HEENT normocephalic, head/scalp atraumatic and hearing grossly normal bilaterally Eyes PERRL Eyes Narrative: Disconjugate gaze right eye deviated medially Resp normal respiratory effort, no retractions, no use of accessory muscles and clear to auscultation bilaterally Cardio regular rate, regular rhythm, S1 normal heart sound and S2 normal heart sound GI normal to inspection, nondistended, normoactive bowel sounds, soft to palpation, non-tender, non-distended and hepatosplenomegaly Extremity normal to inspection Peripheral Pulses: Yes pulses 2+ throughout Skin Skin Narrative: Faint morbilliform rash on upper chest and back Neuro CN's II-XII intact bilaterally and moves all extremities Sensorium / Orientation: awake and alert Motor Exam: strength 5/5 throughout Results Lab / Micro Data Attestation: I reviewed the patient's lab results. Result Diagrams: 10/04/20 08:40 10/04/20 08:40 Labs: Laboratory Results - last 24 hr 10/04/20 10/04/20 10/04/20 08:40 08:40 08:40 WBC 3.6 L RBC 4.92 Hgb 15.2 H Hct 45.6 MCV 92.7 MCH 30.9 MCHC 33.3 RDW Std Deviation 43.5 RDW Coeff of Evangelist 12.8 Plt Count 198 MPV 9.2 Immature Gran % (Auto) 0.300 Neut % (Auto) 73.5 H Lymph % (Auto) 22.8 [place] % (Auto) 1.4 Eos % (Auto) 1.7 Baso % (Auto) 0.3 Absolute Neuts (auto) 2.6 Absolute Lymphs (auto) 0.81 L Nucleated RBC % 0 D-Dimer Quant (PE/DVT) 1.01 H* Sodium 139 Potassium 3.2 L Chloride 105 Carbon Dioxide 27.0 Anion Gap 7 BUN 13 Creatinine 0.78 Estim Creat Clear Calc 33.30 Est GFR (MDRD) Af Amer 91 Est GFR (MDRD) Non-Af 75 BUN/Creatinine Ratio 16.6 Glucose 141 H Calcium 8.6 Troponin I High Sens 6.1 B-Natriuretic Peptide Urine Color Urine Clarity Urine pH Ur Specific [place] Urine Protein Urine Glucose (UA) Urine Ketones Urine Occult Blood Urine Nitrite Urine Bilirubin Urine Urobilinogen Ur Leukocyte Esterase Urine RBC Urine WBC Ur Squamous Epith Cells Urine Bacteria Urine Mucus 10/04/20 10/04/20 08:40 09:22 WBC RBC Hgb Hct MCV MCH MCHC RDW Std Deviation RDW Coeff of Evangelist Plt Count MPV Immature Gran % (Auto) Neut % (Auto) Lymph % (Auto) [place] % (Auto) Eos % (Auto) Baso % (Auto) Absolute Neuts (auto) Absolute Lymphs (auto) Nucleated RBC % D-Dimer Quant (PE/DVT) Sodium Potassium Chloride Carbon Dioxide Anion Gap BUN Creatinine Estim Creat Clear Calc Est GFR (MDRD) Af Amer Est GFR (MDRD) Non-Af BUN/Creatinine Ratio Glucose Calcium Troponin I High Sens B-Natriuretic Peptide 27.9 Urine Color Yellow Urine Clarity Clear Urine pH 6.0 Ur Specific [place] 1.020 Urine Protein 15 H Urine Glucose (UA) Normal Urine Ketones Negative Urine Occult Blood Negative Urine Nitrite Negative Urine Bilirubin Negative Urine Urobilinogen 1 H Ur Leukocyte Esterase 100 H Urine RBC 0 SEEN Urine WBC 0-5 SEEN Ur Squamous Epith Cells 0-5 SEEN Urine Bacteria 1+ Urine Mucus 1+ Micro: Microbiology 10/04/20 08:40 Rapid RSV (DFA) - Final Nasal Secretion 10/04/20 08:40 SARS-CoV-2 Antigen (Rapid) - Final Nasal Secretion EKG Initial EKG: Attestation: I personally reviewed and interpreted this EKG as follows: Prior EKG tracings: available for review EKG Rhythm Intrepretation: Sinus Rhythm Radiology Impression Chest X-Ray 10/04/20 08:53 IMPRESSION: Normal x-ray examination of the chest. Electronically Signed: Moo Martin MD at 9:36 EDT Tel , Service support , Chest CTA 10/04/20 10:07 IMPRESSION: Normal CTA chest examination, without a demonstrated pulmonary embolism or arterial dissection. Electronically Signed: Moo Martin MD at 11:29 EDT Tel , Service support , Assessment & Plan Assessment/Plan (1) Syncope: QUALIFIERS: Syncope type: unspecified Qualified Code(s): R55 - Syncope and collapse PLAN: 1. Syncope Etiology unclear though favoring this being vasovagal Patient underwent a CTA, EKG and troponins all which been negative. Plan: Monitor patient on telemetry, cycle enzymes and, check orthostats, and if nothing comes back positive then likely discharge the 11th 2. Rash Patient has had this before and has been diagnosed with Grovers disease at a weighmaster, however, patient never had a biopsy. I do not know what to make of the rash patient denies any new medications, no animals Does not seem to be consistent with contact dermatitis Unclear if this is even related the patient's syncopal episode as this comes and goes Patient has no peripheral eosinophils at this time but will recheck CBC in the morning as well. 3. VTE prophylaxis: Low risk given current observation status Charges/Coding Visit Charges OBSV E&M: 10582 Initial observation care L3
[2020-10-04 13:19] LABS: Thyroid Stim Hormone (TSH) 1.99 uIU/mL (0.358-3.74)
[2020-10-04 14:23] LABS: Troponin-I HS 24.4 pg/mL (3.0-53.7)
[2020-10-04 17:03] LABS: Troponin-I HS 17.8 pg/mL (3.0-53.7)
[2020-10-04 21:02] LABS: Troponin-I HS 12.4 pg/mL (3.0-53.7)
[2020-10-05 03:00] VITALS: PULSE 80
[2020-10-05 03:25] VITALS: BP 131/70; PULSE 64; RESP 16; TEMP 37.1; O2SAT 94
[2020-10-05] MEDS: 0.9% Normal Saline 1,000 ML 150 ML IV ×2 (05:00→11:28)
[2020-10-05 06:00] VITALS: BP 129/80; BP 139/69; BP 145/71; PULSE 75; PULSE 78; PULSE 85; RESP 16; TEMP 36.8; O2SAT 95
[2020-10-05 06:24] LABS: Absolute Lymphocyte Count 1.53 X10^3/uL (0.83-4.51); Absolute Neutrophil Count 3.7 X10^3/uL (2.0-7.7); Basophil# 0.03 X10^3/uL; Basophil% 0.5 % (0-1); Eosinophil# 0.29 X10^3/uL; Eosinophils% 4.8 % (0-5); Hematocrit 38.8 % (37-47); Hemoglobin 12.4 g/dL (12.0-15.0); Lymphocyte # 1.53 X10^3/ul (0.83-4.51); Lymphocyte % 25.6 % (19-41); Mean Corpuscular Hgb 29.8 pg (27.0-32.0); Mean Corpuscular Volume 93.3 fL (81-99); Mean Platelet Vol. 9.6 fl (6.2-12.0); Monocyte# 0.44 X10^3/uL; Monocyte% 7.4 % (0-10); NRBC Flagged by Analyzer 0 % (0-5); Neutrophil # 3.67 X10^3/uL (2.7-7.7); Neutrophil % 61.4 % (47-70); Platelet Count 185 K/mm3 (150-450); RBC Distribution Width CV 13.2 % (11.6-14.6); Red Blood Count 4.16 M/mm3 (4.2-5.4)
[2020-10-05 07:30] VITALS: PULSE 72
[2020-10-05 10:02] VITALS: BP 137/73; PULSE 81; RESP 12; TEMP 36.9; O2SAT 93
[2020-10-05] MEDS: Pantoprazole Sodium 40 MG Tablet PO (10:16)
--- NOTE | 2020-10-05 11:44 | PCM.DC ---
Discharge Instructions Diet Discharge Diet: No restrictions Activity Discharge Activity: Return to Normal Activity Dressing / Incision Call your doctor if you observe: Fainting spells and - (worsening rash) Follow Up Care Test Results: Test results from this visit will be discussed in further detail at your follow-up appointment, if applicable. Discharge Plan Admission Admit Date/Time: 10/04/20 12:38 Primary Reason for Your Visit: syncope Attending Provider: Dread Griggs Primary Care Provider: Virgilio Henry Discharge Orders/Prescriptions Prescriptions: New diphenhydramine HCl [Banophen] 25 mg Capsule 25 mg PO TID PRN PRN (Reason: rash, pruritis) Qty: 1 RF: 0 Continued multivitamin with minerals [Multiple Vitamin-Minerals] 1 EACH tablet 1 ea PO DAILY RF: 0 cholecalciferol (vitamin D3) [Vitamin D3] 2,000 UNIT capsule 2,000 unit PO DAILY RF: 0 cranberry fruit 400 MG tablet 800 mg PO DAILY RF: 0 calcium carbonate-vitamin D3 [Caltrate with Vitamin D3] 1 EACH tablet 2 ea PO DAILY RF: 0 ascorbic acid (vitamin C) 500 MG capsule 1,000 mg PO DAILY RF: 0 omeprazole magnesium [Prilosec OTC] 20 MG tablet,delayed release (DR/EC) 40 mg PO DAILY RF: 0 Other Ambulatory Orders: 30-Day Event Recorder (Routine) Location: None Selected Ordered By: Dr. Dread Griggs Referrals / Follow Up: Virgilio Henry MD [Primary Care Provider] - Within 2 Weeks Disposition Disposition (needs filled in before D/C Order can be placed): Home, Self Care
--- NOTE | 2020-10-05 11:48 | PCM.DC.SUM ---
Providers Date of Admission: 10/04/20 Primary Care Physician: Dr. Virgilio Henry MD Reason For Visit: SYNCOPE Diagnosis Discharge Diagnosis (1) Syncope: Status: Acute Code(s): R55 - Syncope and collapse Qualifiers: Syncope type: unspecified Qualified Code(s): R55 - Syncope and collapse Medications at Discharge Home Medications ascorbic acid (vitamin C) 1,000 mg PO DAILY 07/17/18 calcium carbonate-vitamin D3 [Caltrate with Vitamin D3] 2 ea PO DAILY 07/17/18 cholecalciferol (vitamin D3) [Vitamin D3] 2,000 unit PO DAILY 07/17/18 cranberry fruit 800 mg PO DAILY 07/17/18 multivitamin with minerals [Multiple Vitamin-Minerals] 1 ea PO DAILY 07/17/18 omeprazole magnesium [Prilosec OTC] 40 mg PO DAILY 07/17/18 diphenhydramine HCl [Banophen] 25 mg PO TID PRN PRN #1 cap 10/05/20 Hospital Course Operations None Procedures None Summary of Care Provided Minutes Spent on Discharge: 28 Hospital Course: 72-year-old female presents with syncope. Had not been feeling well during the day. Went to go check her temperature and then she fell to her knees. Did not hit her head and does not think that she lost complete consciousness. Patient was noted to be diffusely diaphoretic and they had difficulty getting blood pressure as well as pulse ox readings on her. Eventually symptoms resolved and the diaphoresis did resolve as well. Patient underwent a CT angiogram of the chest that was unremarkable. Patient was monitored on telemetry and had 5-8 beat runs of PACs but no other acute process was noted. Explained the patient that it may be alfred to have her have an event monitor. Patient said that she had this before about 2 years ago no events were found. Patient has been diagnosed with a rash as having Grovers disease by highway maintainer but has never had a biopsy of that. Unclear if this is chronic rash that she has in this diaphoresis or at all related. As I would question if patient just became very flushed with a syncopal episode which may have shunted blood because of low blood pressure and with some the shunting may have caused some issues in regards to registering an adequate pulse ox. But patient has remained stable overnight. Patient advised she has any further events to contact her physician or come back to the emergency room. Physical Exam Const alert HEENT normocephalic Neck no lymphadenopathy Resp normal respiratory effort, no retractions and no use of accessory muscles Cardio regular rate, regular rhythm, S1 normal heart sound and S2 normal heart sound Rate: regular rate Rhythm: regular rhythm Skin Skin Narrative: faint macular rash on trunk Weight / BMI Weight Weight: 83.325 kg Body Mass Index (BMI) 35.9 ABG / Lab / Microbiology Data Result Diagrams: 10/05/20 04:45 10/04/20 08:40 Laboratory: Laboratory Results - last 24 hr 10/04/20 10/04/20 10/04/20 08:40 13:55 16:06 WBC RBC Hgb Hct MCV MCH MCHC RDW Std Deviation RDW Coeff of Evangelist Plt Count MPV Immature Gran % (Auto) Neut % (Auto) Lymph % (Auto) Placer % (Auto) Eos % (Auto) Baso % (Auto) Absolute Neuts (auto) Absolute Lymphs (auto) Nucleated RBC % Troponin I High Sens 24.4 17.8 TSH 1.99 10/04/20 10/05/20 20:15 04:45 WBC 6.0 RBC 4.16 L Hgb 12.4 Hct 38.8 MCV 93.3 MCH 29.8 MCHC 32.0 RDW Std Deviation 45.0 H RDW Coeff of Evangelist 13.2 Plt Count 185 MPV 9.6 Immature Gran % (Auto) 0.300 Neut % (Auto) 61.4 Lymph % (Auto) 25.6 Placer % (Auto) 7.4 Eos % (Auto) 4.8 Baso % (Auto) 0.5 Absolute Neuts (auto) 3.7 Absolute Lymphs (auto) 1.53 Nucleated RBC % 0 Troponin I High Sens 12.4 TSH Microbiology: Microbiology 10/04/20 08:40 Rapid RSV (DFA) - Final Nasal Secretion 10/04/20 08:40 SARS-CoV-2 Antigen (Rapid) - Final Nasal Secretion Microbiology 10/04/20 08:40 Nasal Secretion Rapid RSV (DFA) - Final 10/04/20 08:40 Nasal Secretion SARS-CoV-2 Antigen (Rapid) - Final D/C Instructions Discharge Diet: No restrictions Call your doctor if you observe: Fainting spells and - (worsening rash) Meaningful Use Info Meaningful Use Diagnoses (Choose all that apply): None applicable Discharge Plan Admission Admit Date/Time: 10/04/20 12:38 Primary Reason for Your Visit: syncope Attending Provider: Dread Griggs Primary Care Provider: Virgilio Henry Discharge Orders/Prescriptions Prescriptions: New diphenhydramine HCl [Banophen] 25 mg Capsule 25 mg PO TID PRN PRN (Reason: rash, pruritis) Qty: 1 RF: 0 Continued multivitamin with minerals [Multiple Vitamin-Minerals] 1 EACH tablet 1 ea PO DAILY RF: 0 cholecalciferol (vitamin D3) [Vitamin D3] 2,000 UNIT capsule 2,000 unit PO DAILY RF: 0 cranberry fruit 400 MG tablet 800 mg PO DAILY RF: 0 calcium carbonate-vitamin D3 [Caltrate with Vitamin D3] 1 EACH tablet 2 ea PO DAILY RF: 0 ascorbic acid (vitamin C) 500 MG capsule 1,000 mg PO DAILY RF: 0 omeprazole magnesium [Prilosec OTC] 20 MG tablet,delayed release (DR/EC) 40 mg PO DAILY RF: 0 Other Ambulatory Orders: 30-Day Event Recorder (Routine) Location: None Selected Ordered By: Dr. Dread Griggs Referrals / Follow Up: Virgilio Henry MD [Primary Care Provider] - Within 2 Weeks Disposition Disposition (needs filled in before D/C Order can be placed): Home, Self Care Charges/Coding Visit Charges OBSV E&M: 72465 Observation care discharge
== END 2020-10-05 11:47 | disposition home or self-care (01) ==
LOC: ED 12:30 → PCU 13:08
PROVIDERS: Emergency Provider Emergency Medicine; PCP Family Medicine
DX: I95.1 Orthostatic hypotension (principal); R42 Dizziness and giddiness; K21.9 Gastro-esophageal reflux disease without esophagitis; R09.02 Hypoxemia; H54.61 Unqualified visual loss, right eye, normal vision left eye; L11.1 Transient acantholytic dermatosis [Grover]; Z79.899 Other long term (current) drug therapy
CPT/HCPCS: 36415; 71045; 71275; 80048; 81001; 83880; 84443; 84484; 85025; 85379; 87426; 87807; 93005; 96360; 96361; 96374; 99218; 99285; J7030; Q9967; A4216; G0378

== ENCOUNTER → 2020-10-20 11:43 | Outpatient (CLI) | payer MEDICARE, SELFPAY ==
[2020-10-04 13:30] VITALS: BMI 35.9
--- NOTE | 2020-10-20 18:21 | STRESSREP ---
Stress Test Report Exercise stress test. 80-year-old lady with a history of syncope. Stress protocol: Resting EKG demonstrates sinus rhythm with a rate of 61 bpm normal intervals are noted resting blood pressure is 132/84 mmHg. The patient exercised according to regular Marcel protocol for total duration of 4 minutes and 30 seconds. The maximum heart rate attained was 160 bpm which was 112% of maximum predicted heart rate. The maximum workload was 6.4 metabolic equivalents. At rest there were no ST changes noted to suggest ischemia at peak exercise there was upsloping ST change noted approximately 1.3 mm in leads II and aVF with normalization during rest. No clinical angina was noted the test was terminated due to the target heart rate being achieved and mild shortness of breath. The peak blood pressure was 178/90. Conclusion: Exercise stress test with no EKG changes for ischemia at a moderate workload. Mild functional aerobic impairment.
== END ==
PROVIDERS: PCP Family Medicine; Referring Provider Family Medicine; Visit Provider Family Medicine
DX: R55 Syncope and collapse (principal); R06.00 Dyspnea, unspecified; R07.89 Other chest pain
CPT/HCPCS: 93017

== ENCOUNTER 2021-04-09 11:59 | Outpatient (CLI) | payer MEDICARE, SELFPAY ==
[2021-04-09 13:36] LABS: Cholesterol 200 mg/dL (200); High Density Lipoprotein 60 mg/dL; Triglycerides 102 mg/dL; Very Low Density Lipoprotein 20 mg/dL (5-40)
== END 2021-04-09 23:59 | disposition short-term general hospital (02) ==
LOC: LABSPEC 12:01
PROVIDERS: PCP Family Medicine; Visit Provider Physician Assistant
DX: Z13.220 Encounter for screening for lipoid disorders (principal); Z13.6 Encounter for screening for cardiovascular disorders
CPT/HCPCS: 80061

== ENCOUNTER 2021-06-14 14:43 | Emergency (ER) | payer MEDICARE, SELFPAY ==
[2021-06-14 14:44] VITALS: BP 153/94; PULSE 116; RESP 20; TEMP 36.4; O2SAT 97; BMI 37.3
--- NOTE | 2021-06-14 15:27 | RAD_ITS ---
STUDY: X-RAY CHEST REASON FOR EXAM: Female, 81 years old. chest pain TECHNIQUE: Single AP portable view of the chest. COMPARISON: 10/04/2020 FINDINGS: The lungs are clear and expanded. There is no demonstrated pleural abnormality. Normal size heart. Normal mediastinum and ronnie. Normal visualized pulmonary arteries. Normal visualized aortic arch and descending thoracic aorta. Normal visualized thoracic spine. Normal visualized ribs, clavicles, and shoulders. There is no demonstrated abnormality of the visualized soft tissue structures of the upper abdomen. RAD/Chest 1 View (Portable) IMPRESSION: Normal x-ray examination of the chest. Electronically Signed: Moo Martin MD at 16:09 EDT ,
--- NOTE | 2021-06-14 15:27 | EKG12_ITS ---
Test Reason : CP Blood Pressure : / mmHG Vent. Rate : 116 BPM Atrial Rate : 116 BPM P-R Int : 142 ms QRS Dur : 082 ms QT Int : 342 ms P-R-T Axes : 045 -04 033 degrees QTc Int : 475 ms Sinus tachycardia with Premature atrial complexes Nonspecific ST abnormality Abnormal ECG Confirmed by SANTHOSH MO, COLE ([id number]), makeup editor ZACH LAMA ([id number]) on 06/18/2021 9:19:45 AM Referred By: PL/GURINDER Confirmed By:COLE TREVIZO MD
--- NOTE | 2021-06-14 15:28 | ED.VIS.CHEST ---
HPI History of Present Illness Chief Complaint: Chest Pain Informant: patient and spouse/S.O. Narrative Narrative: This is a healthy patient who presents with some mild tachycardia and chest discomfort. Patient states she went to [employer] this morning and felt fine. Somewhere around 11 she started to have a little bit of pressure or tightness in the front of her chest. 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 It then went away. She also just did not feel well. She had just overall sense of weakness or decreased energy. No dyspnea. No nausea vomiting or diaphoresis. She was not syncopal or presyncopal. She went home and laid down. She notes that if she goes to the bathroom or walks around her heart rate increases a lot more than it normally would. She also notes that she urinated much more than normal but there is no dysuria or urgency. No odor. Nothing really makes her symptoms better. Ambulation does increase the rate. Patient was admitted last year for a near syncopal event. She states at that time her heart rate would race and her blood pressure would be low. It was similar to this but not the same. She was seen and evaluated. She was discharged. She had monitor on for about a month. There have been no complications from that. Patient is overall healthy. She takes vitamins and only prescribed medicine is omeprazole. She has no history of heart disease. She has no travel, surgery, immobilization, personal family history of DVT or PE. Her chest pain was a discomfort pressure or tightness. It was not tearing ripping severe or sharp. [facility] Medical History Blind right eye Nutley's disease history of bladder lift history of eye lid surgery History of neuroma Osteoporosis Home Medications Multiple Vitamin-Minerals 1 ea PO DAILY 07/17/18 [History Last Taken 10/03/20] ascorbic acid (vitamin C) 1,000 mg PO DAILY 07/17/18 [History Last Taken 10/03/20] calcium carbonate-vitamin D3 [Caltrate with Vitamin D3] 2 ea PO DAILY 07/17/18 [History Last Taken 10/03/20] cholecalciferol (vitamin D3) [Vitamin D3] 2,000 unit PO DAILY 07/17/18 [History Last Taken 10/03/20] cranberry fruit 800 mg PO DAILY 07/17/18 [History Last Taken 10/03/20] Allergy/AdvReac Type Severity Reaction Status Date / Time No Known Allergies Allergy Verified 06/14/21 14:47 Surgical History History of appendectomy History of strabismus surgery Social History Smoking Status: Never smoker alcohol intake: never ROS ROS ED Constitutional Constitutional ED: Reports other Details: Positive sense of malaise today ; Denies fever(s) or subjective Eyes Eyes: Denies blurry vision or change in vision ENT ENT ED: Denies rhinorrhea or sore throat Cardiovascular Cardiovascular: Reports as per HPI Respiratory/Chest Respiratory/Chest: Denies cough or dyspnea Gastrointestinal Gastrointestinal: Denies nausea or vomiting Genitourinary Genitourinary ED: Reports other Details: No frequency or urgency but she did have much more urine than normal. ; Denies dysuria or hematuria Musculoskeletal Musculoskeletal: Denies myalgias Integumentary Denies rash Neurologic Neurologic: Denies headache(s), paresthesias or weakness Psychiatric Psychiatric: Denies anxiety or depression Endocrine Endocrinology: Reports other Details: Patient states she drinks a lot of water but that is by choice not polyuria or polydipsia. She may have had some polyuria today but that is the first time. ; Denies polydipsia or polyuria Hematologic/Lymphatic Hematologic/Lymphatic: Denies easy bleeding or easy bruising Allergic/Immunologic Allergic/Immunologic ED: Denies urticaria EXAM Physical Exam Const Vital Signs: 06/14/21 14:44 06/14/21 15:36 06/14/21 17:03 Temperature 97.6 F L Temperature Source Temporal Pulse Rate 116 H 109 H Respiratory Rate 20 H 17 Blood Pressure 153/94 H 130/63 H Blood Pressure Mean 113 85 Pulse Ox 97 97 96 Oxygen Delivery Method Room Air Room Air 06/14/21 18:00 Temperature Temperature Source Pulse Rate 107 H Respiratory Rate 16 Blood Pressure 117/96 H Blood Pressure Mean 103 Pulse Ox 93 Oxygen Delivery Method Room Air Positive well nourished and well developed General Appearance ED: well developed and NAD; Negative for pallor HEENT Reports moist mucous membranes normocephalic Eyes General Eye ED: Negative for pale conjunctiva or scleral icterus Neck supple and no JVD Chest Wall inspection of chest normal and palpation of chest normal Chest: Negative for tenderness Resp normal respiratory effort and clear to auscultation bilaterally Resp Narrative: No pain with a deep breath. No rales or rhonchi. Effort and Inspection: respiratory distress Auscultation: Negative for rales, rhonchi or wheezes Cardio regular rhythm and no murmurs Rate: tachycardic and other Other Details: Heart rate is about 110-115. It is sinus with occasional PACs and compensatory pause. I see no ventricular ectopy. Peripheral pulses are equal x4. GI normal to inspection, nondistended, normoactive bowel sounds, soft to palpation and non-tender GI Narrative: No mass or bruit. Back/Spine no CVA tenderness Extremity normal to inspection General Extremety ED: Negative for edema or tenderness General Extremity: Negative for edema Neuro Sensorium / Orientation: awake and alert Psych mental status grossly normal Skin no rashes or lesions noted Skin Narrative: No diaphoresis. General Skin Exam: Negative for pallor MDM MDM MDM Narrative Medical decision making narrative: Patient CBC is normal. D-dimer was high. Electrolytes showed minimally low potassium but otherwise normal. TSH was normal. Troponin was normal. Urine was clean. Repeat troponin was still normal. We did do CTA of the chest. This showed no acute process. Patient was feeling better. Her heart rate has come down to about 95-103. She got some IV fluids. She states she feels better. She is not having any symptoms. She states this is a mild version of what she was admitted for in September. She had inpatient and outpatient work-up that showed nothing and her symptoms resolved. She feels her symptoms are resolved. She is comfortable going home. We did get her up and walk. She had no symptoms with this at all. We discussed reasons to return. Lab Data Attestation: I reviewed the patient's lab results. Labs: Laboratory Results - last 24 hr 06/14/21 06/14/21 06/14/21 15:00 15:00 15:00 WBC 7.2 RBC 4.76 Hgb 15.0 Hct 44.3 MCV 93.1 MCH 31.5 MCHC 33.9 RDW Std Deviation 43.6 RDW Coeff of Evangelist 12.9 Plt Count 194 MPV 9.7 Immature Gran % (Auto) 2.200 H Neut % (Auto) 93.1 H Lymph % (Auto) 3.6 L [place] % (Auto) 0.4 Eos % (Auto) 0.3 Baso % (Auto) 0.4 Absolute Neuts (auto) 6.7 Absolute Lymphs (auto) 0.26 L Nucleated RBC % 0 Differential Comment SCANNED D-Dimer Quant (PE/DVT) 2.79 H* Sodium 144 Potassium 3.4 L Chloride 109 H Carbon Dioxide 28.0 Anion Gap 7 BUN 12 Creatinine 0.73 Estim Creat Clear Calc 32.77 Est GFR (MDRD) Af Amer 99 Est GFR (MDRD) Non-Af 81 BUN/Creatinine Ratio 16.4 Glucose 90 Calcium 9.4 Troponin I High Sens 5 TSH 1.57 Urine Color Urine Clarity Urine pH Ur Specific [place] Urine Protein Urine Glucose (UA) Urine Ketones Urine Occult Blood Urine Nitrite Urine Bilirubin Urine Urobilinogen Ur Leukocyte Esterase Urine RBC Urine WBC Ur Squamous Epith Cells Urine Bacteria Urine Mucus 06/14/21 06/14/21 15:15 17:30 WBC RBC Hgb Hct MCV MCH MCHC RDW Std Deviation RDW Coeff of Evangelist Plt Count MPV Immature Gran % (Auto) Neut % (Auto) Lymph % (Auto) [place] % (Auto) Eos % (Auto) Baso % (Auto) Absolute Neuts (auto) Absolute Lymphs (auto) Nucleated RBC % Differential Comment D-Dimer Quant (PE/DVT) Sodium Potassium Chloride Carbon Dioxide Anion Gap BUN Creatinine Estim Creat Clear Calc Est GFR (MDRD) Af Amer Est GFR (MDRD) Non-Af BUN/Creatinine Ratio Glucose Calcium Troponin I High Sens 8 TSH Urine Color Yellow Urine Clarity Clear Urine pH 8.0 Ur Specific [place] 1.010 Urine Protein Negative Urine Glucose (UA) Normal Urine Ketones Negative Urine Occult Blood Negative Urine Nitrite Negative Urine Bilirubin Negative Urine Urobilinogen Normal Ur Leukocyte Esterase Negative Urine RBC 0 SEEN Urine WBC 0 SEEN Ur Squamous Epith Cells 0-5 SEEN Urine Bacteria 0 SEEN Urine Mucus 0 SEEN Radiography Diagnostic Testing: Clinical Impression(s) from Imaging Studies Chest X-Ray 06/14/21 15:27 IMPRESSION: Normal x-ray examination of the chest. Electronically Signed: Moo Martin MD at 16:09 EDT , Chest CTA 06/14/21 16:02 IMPRESSION: Normal CTA chest examination, without a demonstrated pulmonary embolism or arterial dissection. Electronically Signed: Moo Martin MD at 17:32 EDT , EKG Initial EKG: Comments: EKG done for palpitations and mild chest heaviness and read by me showing sinus tach with a rate of 116. Occasional PACs. No PVCs. No acute ST elevation or depression. SC interval, QRS duration and QTc normal. I did look at prior EKGs from September. The complexes are similar but the rate is faster now. Discharge Plan Triage Chief Complaint: Chest Pain ED Provider: Chavez Tristan Dx/Rx/DC Orders Clinical Impression: Chest heaviness, Sinus tachycardia Instructions: ED Chest Pain, Uncertain Cause Prescriptions: No Action Multiple Vitamin-Minerals 1 EACH tablet 1 ea PO DAILY RF: 0 cholecalciferol (vitamin D3) [Vitamin D3] 2,000 UNIT capsule 2,000 unit PO DAILY RF: 0 cranberry fruit 400 MG tablet 800 mg PO DAILY RF: 0 calcium carbonate-vitamin D3 [Caltrate with Vitamin D3] 1 EACH tablet 2 ea PO DAILY RF: 0 ascorbic acid (vitamin C) 500 MG capsule 1,000 mg PO DAILY RF: 0 Primary Care Provider: Virgilio Henry Referrals: Virgilio Henry MD [Primary Care Provider] - 3-5 Days Disposition Disposition: Home, Self Care
[2021-06-14 15:36] VITALS: O2SAT 97
[2021-06-14 15:40] LABS: Bacteria 0 SEEN /hpf (None Seen); Mucous, Urine 0 SEEN /hpf (<or=2+); Red Blood Cells-Urine 0 SEEN /hpf (0-5); White Blood Cells 0 SEEN /hpf (0-5)
[2021-06-14 15:47] LABS: Absolute Lymphocyte Count 0.26 X10^3/uL (0.83-4.51); Absolute Neutrophil Count 6.7 X10^3/uL (2.0-7.7); Basophil# 0.03 X10^3/uL; Basophil% 0.4 % (0-1); Eosinophil# 0.02 X10^3/uL; Eosinophils% 0.3 % (0-5); Hematocrit 44.3 % (37-47); Lymphocyte # 0.26 X10^3/ul (0.83-4.51); Lymphocyte % 3.6 % (19-41); Mean Corp Hgb Conc 33.9 g/dL (32-36); Mean Corpuscular Hgb 31.5 pg (27.0-32.0); Mean Corpuscular Volume 93.1 fL (81-99); Mean Platelet Vol. 9.7 fl (6.2-12.0); Monocyte# 0.03 X10^3/uL; Monocyte% 0.4 % (0-10); NRBC Flagged by Analyzer 0 % (0-5); Neutrophil # 6.67 X10^3/uL (2.7-7.7); Neutrophil % 93.1 % (47-70); POSITIVE DIFFERENTIAL YES; Platelet Count 194 K/mm3 (150-450); RBC Distribution Width CV 12.9 % (11.6-14.6); RBC Distribution Width SD 43.6 fl (35.1-43.9); Red Blood Count 4.76 M/mm3 (4.2-5.4); White Blood Count 7.2 K/mm3 (4.4-11.0)
[2021-06-14 15:56] LABS: Color, Urine Yellow (Yellow); Glucose, Dipstick Normal (Normal); Ketone-Dipstick Negative (Negative); Leukocyte Esterase-Dipstick Negative /ul (Negative); Nitrite-Dipstick Negative (Negative); Occult Blood-Urine Negative /ul (Negative); Protein-Dipstick Negative (Negative); Urine Bilirubin Dipstick Negative (Negative); Urine Clarity Clear (Clear); Urine Urobilinogen Normal (Normal)
[2021-06-14] MEDS: 0.9% Normal Saline 1,000 ML 1000 ML IV (15:58)
[2021-06-14 16:00] LABS: D-Dimer Quantitative (DVT/PE) 2.79 FEU/ug/m (0.27-0.49)
[2021-06-14 16:02] LABS: Squamous Epithelial Cells - UA 0-5 SEEN /hpf (5-10)
--- NOTE | 2021-06-14 16:02 | CT_ITS ---
STUDY: CTA CHEST REASON FOR EXAM: Female, 81 years old. Chest pain tachycardia elevated D-dimer RADIATION DOSAGE (If Supplied By Facility): CTDIvol = ( 13.15 ) mGy, DLP = ( 446.31 ) mGycm TECHNIQUE: The examination was performed with the intravenous administration of IV 75mL Isovue-370. Post-processing of the angiographic images was performed, with multiplanar reformation and 3D reconstruction. Individualized dose optimization techniques were used for this CT. COMPARISON: 10/04/2020 FINDINGS: Normal enhancement of the main pulmonary artery and right and left pulmonary arteries. Normal enhancement of the bilateral peripheral pulmonary arteries. There is no demonstrated pulmonary embolism. Normal thoracic aorta and visualized great vessels. There is no demonstrated aortic dissection. Normal heart and pericardium. Normal mediastinum. Normal hilar regions. Normal visualized trachea and bronchi. The lungs are well expanded. Normal pulmonary parenchyma. Normal pleura. Normal chest wall structures. Mild dextroscoliosis of the thoracic spine with degenerative disc disease. Normal visualized upper abdomen. CT/CTA Chest W/WO Contrast IMPRESSION: Normal CTA chest examination, without a demonstrated pulmonary embolism or arterial dissection. Electronically Signed: Moo Martin MD at 17:32 EDT ,
[2021-06-14 16:05] LABS: Differential Indicated SCAN CRITERIA MET
[2021-06-14 16:06] LABS: Differential Comment SCANNED
[2021-06-14 16:23] LABS: Anion Gap 7 (5-15); BUN 12 mg/dL (7-18); BUN/Creat Ratio 16.4 RATIO (10-20); Calcium,Total 9.4 mg/dL (8.5-10.1); Chloride 109 mmol/L (98-107); Creatinine, Serum 0.73 mg/dL (0.55-1.02); EST Glomerular Filtration Rate 81 mL/min (>60); Est Glom Filt Rate - Afr Amer 99 mL/min (>60); Estimated Creatinine Clearance 32.77 ml/min; Glucose 90 mg/dL (74-106); Potassium 3.4 mmol/L (3.5-5.1); Sodium Level 144 mmol/L (136-145); Thyroid Stim Hormone (TSH) 1.57 uIU/mL (0.358-3.74); Troponin-I HS 5 pg/mL (3.0-54.0)
[2021-06-14 17:03] VITALS: BP 130/63; PULSE 109; RESP 17; O2SAT 96
[2021-06-14 18:00] VITALS: BP 117/96; PULSE 107; RESP 16; O2SAT 93
[2021-06-14 18:04] LABS: Troponin-I HS 8 pg/mL (3.0-54.0)
--- NOTE | 2021-06-14 18:18 | ED.RN ---
1800- documented vital signs on incorrect patient
[2021-06-14 19:43] VITALS: BP 118/88; PULSE 102; RESP 16; O2SAT 98
== END 2021-06-14 19:44 | disposition home or self-care (01) ==
PROVIDERS: Emergency Provider Emergency Medicine; PCP Family Medicine; Visit Provider Emergency Medicine
DX: R07.89 Other chest pain (principal); R00.0 Tachycardia, unspecified
CPT/HCPCS: 71045; 71275; 80048; 81001; 84443; 84484; 85025; 85379; 93005; 96360; 96361; 99285; J7030; Q9967; A4216

== ENCOUNTER 2022-02-25 12:50 | Day surgery (SDC) | payer MEDICARE, SELFPAY ==
[2022-02-25] MEDS: Lactated Ringers 1,000 ML 15 ML IV (13:18)
[2022-02-25 13:19] VITALS: BP 137/65; PULSE 60; RESP 18; TEMP 36.6; O2SAT 99; BMI 33.8
--- NOTE | 2022-02-25 16:30 | DCINST_ITS ---
Discharge Instructions Follow Up Care Test Results: Test results from this visit will be discussed in further detail at your follow- up appointment, if applicable. Discharge Plan Admission Primary Reason for Your Visit: Right ring finger trigger release Attending Provider: Nathanael Mustafa Primary Care Provider: Virgilio Henry Instructions Additional Instructions / Restrictions: Follow preprinted instructions from your surgeons office Discharge Orders/Prescriptions Prescriptions: No Action Multiple Vitamin-Minerals 1 EACH tablet 1 ea PO DAILY cholecalciferol (vitamin D3) [Vitamin D3] 2,000 UNIT capsule 2,000 unit PO BID cranberry fruit 400 MG tablet 800 mg PO BID calcium carbonate-vitamin D3 [Caltrate with Vitamin D3] 1 EACH tablet 1 ea PO BID ascorbic acid (vitamin C) 500 MG capsule 1,000 mg PO BID omeprazole 40 mg Capsule,Delayed Release(Dr/Ec) 40 mg PO DAILY Referrals / Follow Up: Virgilio Henry MD [Primary Care Provider] - Nathanael Mustafa DO [Med Staff - Active Staff] - Disposition Disposition (needs filled in before D/C Order can be placed): Home, Self Care
--- NOTE | 2022-02-25 16:31 | OP.PCM_ITS ---
Report of Operation Date of Procedure: 02/25/22 Description of Surgical Findings:: Preoperative diagnosis: Right ring trigger finger Postoperative diagnosis: Right ring trigger finger Procedure: Right ring trigger finger A1 lelo release Primary Surgeon: Nathanael Mustafa DO Anesthesia: Wide-awake local only no tourniquet Complications: None apparent IV fluids: Per anesthesia record Estimated blood loss: 3 cc Specimen: None Packing/drains: None Implants: None Urine output: None recorded Preoperative indications: This is a 82-year-old female seen in the outpatient setting for a right ring finger trigger finger. Patient has undergone multiple injections from her chiropractor as well as therapy without relief. We discussed surgical intervention. The risk, benefits, terms of procedure were reviewed with patient at length and she agreed to proceed. Risks included but were not limited to bleeding, infection, loss of life or limb, nonhealing wounds, triggering recurrence, persistent pain, stiffness, neurovascular injury, DVT or PE. She expressed understanding of these risks and wished to proceed with surgery. Description of procedure: Patient was identified the preoperative holding area by name, medical record number, and date of . The operative extremity was marked. All questions were answered to patient satisfaction. Informed consent was confirmed with the patient. In the preoperative holding area, administered a tumescent field block with 10 cc 2% lidocaine with epinephrine 1: 100,000. Patient tolerated the block well without complication. Prior to the procedure, patient brought the operative suite and positioned supine on a gurney. A cantilever plank was applied to the bed with a pillow to act as a hand table. We then prepped and draped the right upper extremity normal, sterile orthopedic fashion. We performed a timeout with all parties in attendance in agreement the side, site, operation be performed. No concerns voiced and we elected proceed with surgery. No antibiotics were administered prior to the procedure. I first confirmed anesthesia with Adson forceps on the skin. A transverse incision was made in the flexion crease overlying the A1 lelo approximately 1 cm in length. I bluntly dissected the subcutaneous layer down to the A1 lelo. Central portion of the lelo was identified and split in line with the flexor tendons. I then utilized Littler scissors to complete release proximal and distal ensuring complete release of the A1 lelo. I then had the patient actively make a fist and extend the finger without recurrence of the triggering noted. She was able to visualize the lack of triggering in the operative suite. I then copiously irrigated the wound normal saline solution. Incision was closed in interrupted fashion with horizontal mattress 4-0 nylon suture. Sterile bulky loose dressing was applied. She tolerated procedure well without apparent complication. Patient was transferred back to same-day surgery in stable condition. Postoperative plan: Patient be discharged home today after meeting same-day s urgery criteria. Patient will be weightbearing less than 3 pounds to the operative hand. She will follow-up in 10 days for suture removal and wound check. Active range of motion encouraged. Short prescription of [place] provided, encouraged to take [id number] analgesics primarily for pain. Ice and elevation encouraged.
[2022-02-25 16:41] VITALS: BP 130/67; BP 137/65; PULSE 83; RESP 18; TEMP 36.5; O2SAT 98
== END 2022-02-25 16:43 | disposition home or self-care (01) ==
LOC: SDC 12:51 → AC 12:52
PROVIDERS: PCP Family Medicine; Referring Provider Student in an Organized Health Care Education/Training Program; Visit Provider Student in an Organized Health Care Education/Training Program
PROC: (CPT 26055; principal; 2022-02-25 14:15)
DX: M65.341 Trigger finger, right ring finger (principal); M65.342 Trigger finger, left ring finger; E66.8 Other obesity; R03.0 Elevated blood-pressure reading, without diagnosis of hypertension; Z68.34 Body mass index [BMI] 34.0-34.9, adult; K21.9 Gastro-esophageal reflux disease without esophagitis; M81.0 Age-related osteoporosis without current pathological fracture
CPT/HCPCS: 26055; J7120

== ENCOUNTER 2022-09-09 05:57 | Day surgery (SDC) | payer MEDICARE, SELFPAY ==
[2022-09-09 06:27] VITALS: BP 149/96; PULSE 68; RESP 18; TEMP 36.6; O2SAT 96; BMI 33.7
[2022-09-09] MEDS: Lidocaine 1% /Epi 1:100 (20ml) 20 ML Vial (07:30)
--- NOTE | 2022-09-09 07:54 | DCINST_ITS ---
Discharge Instructions Follow Up Care Test Results: Test results from this visit will be discussed in further detail at your follow- up appointment, if applicable. Discharge Plan Admission Primary Reason for Your Visit: Left carpal tunnel release Attending Provider: Nathanael Mustafa Primary Care Provider: Virgilio Henry Instructions Additional Instructions / Restrictions: Follow preprinted instructions from your surgeons office Discharge Orders/Prescriptions Prescriptions: No Action Multiple Vitamin-Minerals 1 EACH tablet 1 ea PO DAILY cholecalciferol (vitamin D3) [Vitamin D3] 2,000 UNIT capsule 2,000 unit PO BID cranberry fruit 400 MG tablet 800 mg PO BID calcium carbonate-vitamin D3 [Caltrate with Vitamin D3] 1 EACH tablet 1 ea PO BID ascorbic acid (vitamin C) 500 MG capsule 1,000 mg PO BID omeprazole 40 mg Capsule,Delayed Release(Dr/Ec) 40 mg PO DAILY Referrals / Follow Up: Virgilio Henry MD [Primary Care Provider] - Nathanael Mustafa DO [Med Staff - Active Staff] - Disposition Disposition (needs filled in before D/C Order can be placed): Home, Self Care
--- NOTE | 2022-09-09 07:54 | PCM.OPRPT ---
Report of Operation Date of Procedure: 09/09/22 Description of Surgical Findings:: Preoperative diagnosis: Left carpal tunnel syndrome Postoperative diagnosis: Left carpal tunnel syndrome Procedure: Left open carpal tunnel release Primary Surgeon: Nathanael Mustafa DO Anesthesia: Local Complications: None apparent IV fluids: None Estimated blood loss: 3 cc Specimen: None Packing/drains: None Implants: None Urine output: None recorded Preoperative indications: This is a 82-year-old female seen in the outpatient setting for left hand pain and paresthesias. Patient had EMG ordered by a neurologist demonstrated carpal tunnel left upper extremity. She failed nighttime bracing and oral anti-inflammatories. I recommend surgical intervention in the form of left open carpal tunnel release under local anesthesia. The risks, benefits, alternatives of procedure were reviewed with patient at length and she agreed to proceed. Risks included but were not limited to bleeding, infection, loss of life or limb, nonhealing wounds, worsening of carpal tunnel syndrome, persistent paresthesias, persistent pain, stiffness, neurovascular injury, DVT or PE. She expressed understanding of these risks and wished to proceed with surgery. Description of procedure: Patient was identified the preoperative holding area by name, medical record number, and date of . The operative extremity was marked. All questions were answered to patient satisfaction. Informed consent was confirmed with the patient. At time of the procedure, patient brought the operative suite and positioned supine on a standard operating table and hand table was attached to the patient's operative side. Prior to prepping, a well-padded pneumatic tourniquet was applied to the operative forearm. I performed a tumescent field block with 10 cc total 1% lidocaine with epinephrine 1: 100,000. We then prepped and draped the operative upper extremity normal, sterile orthopedic fashion. We performed a timeout with all parties in attendance in agreement the side, site, operation be performed. No concerns voiced and we elected proceed with surgery. No antibiotics were administered prior to the procedure. I first confirmed anesthesia with Adson forceps on the skin. After staying with the operative upper extremity with an Esmarch bandage. Tourniquet was inflated to 250 mmHg remained up for 6 minutes. A standard longitudinal was made in line with the fourth ray proximal to Lim's cardinal line and distal to the wrist crease. Full-thickness skin flaps were developed sharply down to level palmar fascia. Heiss retractor was placed. Palmar fascia was split in line with the incision. Heiss retractor was taken deeper. Transverse carpal ligament was identified and split in line with the incision along its ulnar border. Carpal tunnel was entered. Proximal and distal releases were completed. Identification of perivascular fat was noted distally. No aberrancies in the median nerve were noted. The wound was copiously irrigated with normal saline solution. Tourniquet was deflated. Hemostasis was achieved with bipolar cautery. Skin was reapproximated with interrupted horizontal mattress 4-0 nylon suture. A bulky dressing was applied. She tolerated procedure well without apparent complication. Patient was transferred back to same-day surgery in stable condition. Postoperative plan: Patient be discharged home today after meeting same-day surgery criteria. Patient will be weightbearing less than 3 pounds to the operative hand. She will follow-up in 10 to 14 days days for suture removal and wound check. Active range of motion encouraged. Short prescription of [place] provided, encouraged to take [id number] analgesics primarily for pain. Ice and elevation encouraged.
[2022-09-09 07:55] VITALS: BP 121/62; PULSE 78; RESP 16; TEMP 37.1; O2SAT 95
== END 2022-09-09 08:28 | disposition home or self-care (01) ==
PROVIDERS: PCP Family Medicine; Referring Provider Student in an Organized Health Care Education/Training Program; Visit Provider Student in an Organized Health Care Education/Training Program
PROC: (CPT 64721; principal; 2022-09-09 07:15)
DX: G56.02 Carpal tunnel syndrome, left upper limb (principal); M65.342 Trigger finger, left ring finger; E66.8 Other obesity; Z79.899 Other long term (current) drug therapy; Z68.34 Body mass index [BMI] 34.0-34.9, adult
CPT/HCPCS: 64721; A4216

== ENCOUNTER → 2023-03-31 | Outpatient (CLI) | payer MEDICARE, SELFPAY ==
--- NOTE | 2023-03-31 15:11 | BI_ITS ---
MAMMOGRAPHY - BILATERAL SCREENING REASON FOR EXAM: Female, 83 years old. Routine annual screening examination. PERTINENT HISTORY: Grandmother with breast cancer. Aunt with breast cancer. History of remote bilateral breast aspirations. TECHNIQUE: Digital bilateral breast shannan (3D mammographic acquisition) in the CC and MLO projections. 2-D mediolateral oblique (MLO) and craniocaudad (CC) views of both breasts were obtained. CAD: Full Field Digital Mammography with Computer Added Detection was performed. COMPARISON: Comparison is made with prior study dated September 25, 2015 and September 19, 2014. FINDINGS: Breast Composition: The breasts are heterogeneously dense, which may obscure small masses. There are no dominant masses or suspicious calcifications. Stable bilateral fat containing axillary lymph nodes. No other significant abnormalities are identified. There has been no significant change since the prior study. BI/SCRN MAMM (CAD)W/SHANNAN BILAT IMPRESSION: Stable bilateral screening mammogram. Yearly follow-up mammogram recommended. (A) ASSESSMENT CATEGORY: BIRADS Category 2: Benign. A letter regarding these results will be sent to the patient by the facility within 30 days. Approximately 10% of breast cancers are not detected by mammography. A normal mammogram should not delay biopsy of a clinically suspicious abnormality. [id number] Electronically Signed: Raul Brandt MD at 14:42 EST ,
--- NOTE | 2023-03-31 15:15 | BD_ITS ---
STUDY: DUAL ENERGY X-RAY ABSORPTIOMETRY / DXA REASON FOR EXAM: Female, 83 years old. [id number] -- do in early March TECHNIQUE: Bone Mineral Density (BMD) measurements of lumbar spine and bilateral hips were obtained. COMPARISON: Comparison is made with prior study dated July 18, 2012. FINDINGS: Lumbar Spine (L1-L4): g/cm2 (0.758) / T-score (-2.4) / Z-score (0.3) Findings are suggestive of osteopenia with a high fracture risk. Left Femur Total: g/cm2 (0.829) / T-score (-0.9) / Z-score (1.2) Left Femoral Neck: g/cm2 (0.710) / T-score (-1.2) / Z-score (1.1) Right Femur Total: g/cm2 (0.818) / T-score (-1.0) / Z-score (1.1) Right Femoral Neck: g/cm2 (0.725) / T-score (-1.1) / Z-score (1.2) The T-Scores on the most recent prior examination were: Lumbar Spine (L1-L4): There has been worsening of bone density since the previous examination. Left Femur Total: which represents a worsening of 7.6%. Right Femur Total: which represents a worsening of 10.5%. BD/Dexa Bone Density Study IMPRESSION: The patient is considered osteopenic as outlined below according to World Derek Organization (WHO) criteria with a high fracture risk. There has been worsening of bone density since the previous examination. Reference Information: The T-score is the number of standard deviations above or below the standard which is normal for young adults at their peak bone mineral density. The World Health Organization (WHO) interprets the T-scores as follows: Above -1 Normal bone density Between -1 and -2.5 Osteopenia Equal to / or below -2.5 Osteoporosis As a practical clinical guideline, osteopenia may be graded as follows: Mild -1 through -1.5 Moderate -1.6 through -2.0 Severe -2.1 through -2.4 The Z-score is the number of standard deviations above or below age-matched controls. A Z-score of less than -1.5 would be considered abnormal. References: 1. NIH Osteoporosis and Related Bone Diseases www osteo.org 2. International Society for Clinical Densitometry www iscd.org 3. National Osteoporosis Foundation www nof.org Electronically Signed: Raul Brandt MD at 15:23 EST ,
--- OUTSIDE RECORDS SUMMARY | 2023-03-31 17:37 | XMS RPT_ITS | CCD ---
Author Name Unknown Address [address] [place] [address] Organization [facility] Care Team Providers Care Board Hammer Operator Name Role Phone Yensho BUFFING WHEEL PRESSER, Rossy A Unavailable Unavailab le Yensho J LUIS, Rossy A Unavailable Unavailab Rekha Singh Unavailable Unavailable Roberto Ball Unavailable [phone] Virgilio Rojas MD Primary Care Provider Virgilio Rojas MD Primary Care Provider Virgilio Rojas MD Primary Care Provider VIRGILIO ROJSA Primary Care Unavailable VIRGILIO ROJAS Attending Unavailable VIRGILIO ROJAS Referring Unavailable VIRGILIO ROJAS Primary Care Unavailable VIRGILIO ROJAS Attending Unavailable VIRGILIO ROJAS Referring Unavailable VIRGILIO ROJAS Primary Care Unavailable VIRGILIO ROJAS Primary Care Unavailable FARZANA LARSEN Referring Unavailable VIRGILIO ROJAS Primary Care Unavailable VIRGILIO ROJAS Primary Care Unavailable MARIA DOLORES GARCIA Attending Unavailable VIRGILIO ROJAS Primary Care Unavailable VIRGILIO ROJAS Referring Unavailable José Miguel Bryson MD Unavailable Dr. Padmaja De La Garza MD Unavailable Marcel Howell Unavailable Rich AWAN, Gail Leach Unavailable Unavailable Slarb BUFFING WHEEL PRESSER, Laurence Unavailable Unavailable Fast DO, Catherine A Unavailable Manchak RESPIRATORY THERAPY INSTRUCTOR, Tabitha Unavailable Unavailable Unavailable Unavailable Fast DO, Catherine A Unavailable Allergies Allergy Classification Reported Allergen(s) Allergy Type Date of Onset Reaction(s) Facility NEGATED: Highlighted row has been ruled out! (1 source) Allergy to drug (finding) [facility] Work Phone: NEGATED: Highlighted row has been ruled out! (1 source) Allergy to drug (finding) [facility]; [facility] Work Phone: Medications Current Medications Medication Drug Class(es) Dates Sig (Normalized) Sig (Original) cephalexin 500 mg oral capsule (1 source) Cephalosporin Antibacterial Start: 10-22-2022 End: 10-27-2022 take 1 capsule by mouth four times daily cephALEXin (KEFLEX) 500 mg capsule Take 1 capsule by mouth four times daily for 5 days. 20 capsule 0 10/22/2022 10/27/2022 Active Completed/Discontinued Medications Medication Drug Class(es) Dates Sig (Normalized) Sig (Original) 200 actuat albuterol 0.09 mg/actuat metered dose inhaler (5 sources) beta2-Adrenergic Agonist Start: 08-07-2014 take 2 puff(s) by inhalation every four to six hours as needed for wheezing PROAIR HFA 108 (90 Base) MCG/ACT AERS 2 puffs INH q 4-6 hours PRN Wheezing ALBUTEROL SULFATE [id number] Marcel Howell Problems Active Problems Problem Classification Problem Date Documented Da te Episodic/Chronic Abdominal pain (8 sources) Lower abdominal pain; Translations: [Generalized abdominal pain] Onset: 7 Resolved: 9 07-01-2016 Episodic Acquired foot deformities (2 sources) Bunion; Translations: [Bunion] Resolved: 9 03-18-2009 Episodic Allergic reactions (3 sources) Cutaneous hypersensitivity; Translations: [Allergy, unspecified, initial encounter] Episodic Cardiac dysrhythmias (4 sources) Palpitations; Translations: [Palpitations] Episodic Chronic obstructive pulmonary disease and bronchiectasis (2 sources) Bronchitis; Translations: [Bronchitis] Resolved: 2 12-31-2014 Episodic Complications of surgical procedures or medical care (6 sources) Urinary complications, not elsewhere classified; Translations: [URINARY COMPLICATIONS, NOT ELSEWHERE CLASSIFIED] Resolved: 3 07-12-2012 Episodic Diabetes mellitus without complication (20 sources) Hyperglycemia; Translations: [Hyperglycemia, unspecified] Onset: 2 04-17-2021 Episodic Disorders of lipid metabolism (20 sources) Hypercholesterolemia; Translations: [Hypercholesteremia] 10-25-2022 Chronic Diverticulosis and diverticulitis (9 sources) Diverticulosis of colon; Translations: [Diverticulosis of large intestine without perforation or abscess without bleeding] 04-17-2021 Chronic Esophageal disorders (20 sources) Gastroesophageal reflux disease without esophagitis; Translations: [Gastro-esophageal reflux disease without esophagitis] Onset: 1 Chronic Essential hypertension (20 sources) Benign essential hypertension; Translations: [Benign essential hypertension] 10-25-2022 Chronic Fluid and electrolyte disorders (3 sources) Hyperkalemia; Translations: [High potassium] 04-13-2016 Episodic Genitourinary symptoms and ill-defined conditions (20 sources) Blood in urine; Translations: [Urgent desire to urinate] Onset: 7 07-01-2016 Episodic Gout and other crystal arthropathies (7 sources) Gout; Translations: [Gout, unspecified] Onset: 7 Resolved: 9 07-07-2016 Chronic Heart valve disorders (11 sources) Aortic incompetence, non-rheumatic ; Translations: [Nonrheumatic aortic (valve) insufficiency] Onset: 8 Chronic Immunizations and screening for infectious disease (15 sources) Needs influenza immunization; Translations: [Need for prophylactic vaccination and inoculation against influenza] 12-16-2015 Episodic Lung disease due to external agents (2 sources) Alveolar pneumopathy; 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] 04-13-2016 Chronic Mycoses (2 sources) Tinea corporis; Translations: [Tinea corporis] 04-13-2016 Episodic Neoplasms of unspecified nature or uncertain behavior (3 sources) Neoplasm of uncertain behavior of skin; Translations: [Neoplasm of uncertain behavior of skin] Resolved: 9 02-10-2015 Episodic Nonmalignant breast conditions (9 sources) Fibrocystic disease of breast; Translations: [Diffuse cystic mastopathy of unspecified breast] 12-01-2016 Chronic Nonspecific chest pain (8 sources) Chest pain; Translations: [Other chest pain] Resolved: 9 04-13-2016 Episodic Osteoporosis (20 sources) Primary osteoporosis; Translations: [Age-related osteoporosis without current pathological fracture] Onset: 7 04-23-2021 Chronic Other bone disease and musculoskeletal deformities (15 sources) Osteopenia; Translations: [Osteopenia] Resolved: 7 04-13-2016 Episodic Other connective tissue disease (8 sources) Plantar fascial fibromatosis; Translations: [Plantar fascial fibromatosis] 12-01-2016 Episodic Other connective tissue disease (1 source) Swelling of hand; Translations: [Other specified soft tissue disorders] 10-22-2022 Episodic Other connective tissue disease (1 source) Pain in right thumb; Translations: [Pain in right finger(s)] 10-22-2022 Episodic Other connective tissue disease (1 source) Other specified soft tissue disorders; Translations: [Swelling of right hand] Onset: 3 Episodic Other connective tissue disease (4 sources) Pain in left lower limb; Translations: [Leg pain, left] 04-13-2016 Episodic Other connective tissue disease (2 sources) Plantar fasciitis; Translations: [Plantar fasciitis] 04-13-2016 Episodic Other ear and sense organ disorders (7 sources) Impacted cerumen; Translations: [Impacted cerumen, unspecified ear] Resolved: 1 06-08-2007 Episodic Other gastrointestinal disorders (2 sources) Other symptoms involving digestive system; Translations: [Change in bowel habits] 04-13-2016 Episodic Other gastrointestinal disorders (2 sources) Constipation; Translations: [Constipation] Resolved: 1 01-07-2015 Episodic Other inflammatory condition of skin (2 sources) Rosacea; Translations: [Rosacea] 04-13-2016 Chronic Other lower respiratory disease (5 sources) Fibrosis of lung; Translations: [Pulmonary fibrosis] 04-13-2016 Chronic Other lower respiratory disease (3 sources) Cough; Translations: [Cough] 04-13-2016 Episodic Other lower respiratory disease (8 sources) Dyspnea on exertion; Translations: [SOB (shortness of breath) on exertion] Onset: 1 04-13-2016 Episodic Other nervous system disorders (4 sources) Carpal tunnel syndrome; Translations: [Carpal tunnel syndrome, unspecified laterality] 04-13-2016 Chronic Other nervous system disorders (3 sources) Paresthesia; Translations: [Paresthesia] 04-13-2016 Episodic Other non-traumatic joint disorders (8 sources) Pain in unspecified knee; Translations: [Knee pain] 04-13-2016 Episodic Other nutritional; endocrine; and metabolic disorders (5 sources) Obesity; Translations: [Obesity, unspecified] Onset: 5 08-09-2014 Chronic Other nutritional; endocrine; and metabolic disorders (6 sources) Body mass index 30+ - obesity; Translations: [BMI 30.0-30.9,adult] 04-13-2016 Chronic Other screening for suspected conditions (not mental disorders or infectious disease) (2 sources) Imaging of thorax abnormal; Translations: [Abnormal chest x-ray] Resolved: 6 11-12-2015 Chronic Other screening for suspected conditions (not mental disorders or infectious disease) (20 sources) Patient encounter status; Translations: [Encounter for screening mammogram for malignant neoplasm of breast] Onset: 7 Resolved: 1 12-01-2016 Episodic Other skin disorders (4 sources) Actinic keratosis; Translations: [Actinic keratoses] 04-13-2016 Episodic Other skin disorders (2 sources) Eruption; Translations: [Rash] Resolved: 4 06-01-2013 Episodic Other skin disorders (2 sources) Sebaceous cyst of skin; Translations: [Sebaceous cyst] Resolved: 0 05-08-2015 Episodic Other upper respiratory disease (8 sources) Vasomotor rhinitis; Translations: [Vasomotor rhinitis] Onset: 7 12-01-2016 Chronic Other upper respiratory disease (2 sources) Allergic rhinitis; Translations: [Allergic rhinitis due to other allergen] 04-13-2016 Chronic Other upper respiratory infections (4 sources) Upper respiratory infection; Translations: [Upper Respiratory Infection (Renamed from Infection of the upper respiratory tract)] Resolved: 1 04-13-2016 Episodic Otitis media and related conditions (2 sources) Dysfunction of eustachian tube; Translations: [Eustachian tube dysfunction] 04-13-2016 Episodic Residual codes; unclassified (9 sources) Family history of neoplasm; Translations: [Family history of other specified conditions] 09-20-2019 Episodic Residual codes; unclassified (2 sources) History of colonoscopy; Translations: [H/O colonoscopy] 04-13-2016 Episodic Residual codes; unclassified (3 sources) Non-smoker; Translations: [Nonsmoker] 04-13-2016 Episodic Residual codes; unclassified (5 sources) Edema; Translations: [Edema (782.3)] Episodic Spondylosis; intervertebral disc disorders; other back problems (7 sources) Degeneration of lumbar intervertebral disc; Translations: [Other intervertebral disc degeneration, lumbar region] 04-13-2016 Chronic Spondylosis; intervertebral disc disorders; other back problems (9 sources) Pain in thoracic spine; Translations: [PAIN IN THORACIC SPINE] Resolved: 9 04-13-2016 Episodic Urinary tract infections (7 sources) Urinary tract infectious disease; Translations: [Recurrent urinary tract infection] Onset: 7 07-01-2016 Episodic Viral infection (12 sources) Herpes simplex; 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, unspecified] Onset: 7 01-25-2017 Chronic Viral infection (13 sources) Herpes zoster; Translations: [Zoster without complications] 12-01-2016 Episodic Past or Other Problems Problem Classification Problem Date Documented Da te Episodic/Chronic Administrative/social admission (4 sources) Advance directive discussed with patient; Translations: [Other specified counseling] Onset: 04-19-2022 Episodic Blindness and vision defects (8 sources) Lazy eye; Translations: [Unspecified amblyopia, right eye] Onset: 03-17-2020 04-17-2021 Episodic Nonmalignant breast conditions (8 sources) Cyst of breast; Translations: [Solitary cyst of unspecified breast] Onset: 07-11-2011 12-01-2016 Episodic Other aftercare (1 source) Other continuous churn buttermaker (current) drug therapy; Translations: [Medication management] Onset: 09-16-2021 Episodic Other connective tissue disease (1 source) Pain in limb; Translations: [Pain in limb] Resolved: 08-03-2010 08-03-2010 Episodic Other inflammatory condition of skin (8 sources) Transient acantholytic dermatosis; 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 [[place]]] Onset: 03-17-2020 03-17-2020 Episodic Other lower respiratory disease (5 sources) Dyspnea; Translations: [Shortness of breath] Onset: 05-07-2014 05-07-2014 Episodic Residual codes; unclassified (11 sources) Edema; Translations: [Edema, unspecified] Onset: 08-24-2011 Resolved: 07-12-2012 12-01-2016 Episodic Residual codes; unclassified (3 sources) Active living will ; Translations: [Other specified health status] Onset: 04-19-2022 04-19-2022 Episodic Residual codes; unclassified (1 source) Edema, unspecified; Translations: [Edema, unspecified type] Onset: 12-01-2016 Episodic Unclassified (5 sources) Tomography - chest abnormal; Translations: [Other nonspecific abnormal finding of lung field] Onset: 05-07-2014 05-09-2014 Episodic Unclassified (1 source) Deliveries (Parity); Translations: [Deliveries (Parity)] 04-13-2016 Unclassified (1 source) Pregnancies (); Translations: [Pregnancies ()] 04-13-2016 NEGATED: Highlighted row has been ruled out!Residual codes; unclassified (1 source) Disease Episodic Results Test Name Value Interpretation Reference Range Facil ity Vital Signs Date Time Vital Sign Value Performing Clinician Facility 10-22-2022 07:15-0400 Body temperature 96.91 [degF] Farzana Larsen GENERAL FARMER.[employer]PH[employer]AM[employer] Work Phone: [facility] 10-22-2022 07:15-0400 Body weight 79.38 kg Farzana Larsen GENERAL FARMER.[employer]PH[employer]AM[employer] Work Phone: [facility] 10-22-2022 07:15-0400 Diastolic blood pressure 70 mm[Hg] Farzana Larsen GENERAL FARMER.[employer]PH[employer] TAMPER Work Phone: [facility] 10-22-2022 07:15-0400 Heart rate 78 /min Farzana Larsen GENERAL FARMER.[employer]PH[employer]AM[employer] Work Phone: [facility] 10-22-2022 07:15-0400 Respiratory rate 16 /min Farzana Larsen GENERAL FARMER.[facility] Work Phone: [facility] 10-22-2022 07:15-0400 SaO2% (BldA) [Mass fraction] 96 % Farzana Larsen GENERAL FARMER.ASPH[employer] TAMPER Work Phone: [facility] 10-22-2022 07:15-0400 Systolic blood pressure 118 mm[Hg] Farzana Larsen ZAINA Work Phone: [facility] 06-18-2022 12:17-0400 Body weight 82.1 kg Virgilio Rojas MD Work Phone: [facility] 06-18-2022 12:17-0400 Diastolic blood pressure 74 mm[Hg] Virgilio Rojas MD Work Phone: [facility] 06-18-2022 12:17-0400 Heart rate 80 /min Virgilio Rojas MD Work Phone: [facility] 06-18-2022 12:17-0400 Respiratory rate 14 /min Virgilio Rojas MD Work Phone: [facility] 06-18-2022 12:17-0400 Systolic blood pressure 122 mm[Hg] Virgilio Rojas MD Work Phone: [facility] 04-19-2022 13:18-0500 Body height 153.7 cm Virgilio Rojas MD Work Phone: [facility] 04-19-2022 13:18-0500 Body weight 81.65 kg Virgilio Rojas MD Work Phone: [facility] 04-19-2022 13:18-0500 Diastolic blood pressure 80 mm[Hg] Virgilio Rojas MD Work Phone: [facility] 04-19-2022 13:18-0500 Heart rate 72 /min Virgilio oRjas MD Work Phone: [facility] 04-19-2022 13:18-0500 Respiratory rate 16 /min Virgilio Rojas MD Work Phone: [facility] 04-19-2022 13:18-0500 Systolic blood pressure 120 mm[Hg] Virgilio Rojas MD Work Phone: [facility] 09-16-2021 15:04-0400 Body weight 79.38 kg Virgilio Rojas MD Work Phone: [facility] 09-16-2021 15:04-0400 Diastolic blood pressure 72 mm[Hg] Viriglio Rojas MD Work Phone: [facility] 09-16-2021 15:04-0400 Heart rate 76 /min Virgilio Rojas MD Work Phone: [facility] 09-16-2021 15:04-0400 Respiratory rate 16 /min Virgilio Rojas MD Work Phone: [facility] 09-16-2021 15:04-0400 Systolic blood pressure 120 mm[Hg] Virgilio Rojas MD Work Phone: [facility] 08-27-2021 08:03-0400 Body temperature 96.69 [degF] Marilyn Praisler-Wood GENERAL FARMER.ASPHALT TAMPER Work Phone: [facility] 08-27-2021 08:03-0400 Body weight 80.56 kg Marilyn Praisler-Wood GENERAL FARMER.[employer]PH[employer] TAMPER Work Phone: [facility] 08-27-2021 08:03-0400 Diastolic blood pressure 64 mm[Hg] Marilyn Praisler-Wood GENERAL FARMER.[employer]PH[employer] TAMPER Work Phone: [facility] 08-27-2021 08:03-0400 Heart rate 56 /min Marilyn Praisler-Wood GENERAL FARMER.ASPHALT TAMPER Work Phone: [facility] 08-27-2021 08:03-0400 Respiratory rate 21 /min Marilyn Praisler-Wood GENERAL FARMER.ASPHALT TAMPER Work Phone: [facility] 08-27-2021 08:03-0400 SaO2% (BldA) [Mass fraction] 97 % Marilyn Praisler-Wood GENERAL FARMER.ASPHALT TAMPER Work Phone: [facility] 08-27-2021 08:03-0400 Systolic blood pressure 110 mm[Hg] Marilyn Praisler-Wood GENERAL FARMER.ASPHALT TAMPER Work Phone: [facility] 06-22-2021 07:36-0400 Body temperature 97.7 [degF] Maria Dolores Garcia PA-C Work Phone: [facility] 06-22-2021 07:36-0400 Body weight 83.46 kg Maria Dolores LOPEZ-C Work Phone: [facility] 06-22-2021 07:36-0400 Diastolic blood pressure 60 mm[Hg] Maria Dolores Garcia PA-C Work Phone: [facility] 06-22-2021 07:36-0400 Heart rate 78 /min Maria Dolores Garcia PA-C Work Phone: [facility] 06-22-2021 07:36-0400 Respiratory rate 16 /min Maria Dolores Garcia PA-C Work Phone: [facility] 06-22-2021 07:36-0400 Systolic blood pressure 110 mm[Hg] Maria Dolores Garcia PA-C Work Phone: [facility] 02-09-2017 14:43-0500 BMI (Body Mass Index) 30.74 kg/m2 Roberto LOPEZ [facility] Work Phone: 02-09-2017 14:43-0500 Body Temperature 98.1 [degF] Roberto LOPEZ [facility] Work Phone: 02-09-2017 14:43-0500 BP Diastolic 76 mm[Hg] Roberto LOPEZ [facility] Work Phone: 02-09-2017 14:43-0500 BP Systolic 124 mm[Hg] Roberto LOPEZ [facility] Work Phone: 02-09-2017 14:43-0500 Height 156.21 cm Roberto LOPEZ [facility] Work Phone: 02-09-2017 14:43-0500 Pulse (Heart Rate) 60 /min Roberto LOPEZ [facility] Work Phone: 02-09-2017 14:43-0500 Respiratory Rate 15 /min Roberto LOPEZ [facility] Work Phone: 02-09-2017 14:43-0500 Weight 75.03 kg Roberto LOPEZ [facility] Work Phone: 08-04-2016 10:48-0400 BMI (Body Mass Index) 29.74 kg/m2 Rekha Vargas [facility] Work Phone: 08-04-2016 10:48-0400 Body Temperature 97.1 [degF] Rekha Vargas [facility] Work Phone: 08-04-2016 10:48-0400 BP Diastolic 68 mm[Hg] Rekha Vargas [facility] Work Phone: 08-04-2016 10:48-0400 BP Systolic 103 mm[Hg] Rekha Vargas [facility] Work Phone: 08-04-2016 10:48-0400 Height 156.21 cm Rekha Vargas [facility] Work Phone: 08-04-2016 10:48-0400 Pulse (Heart Rate) 59 /min Rekha Vargas [facility] Work Phone: 08-04-2016 10:48-0400 Pulse Oximetry 98 % Rekha Vargas [facility] Work Phone: 08-04-2016 10:48-0400 Respiratory Rate 18 /min Rekha Vargas [facility] Work Phone: 08-04-2016 10:48-0400 Weight 72.58 kg Rekha Vargas [facility] Work Phone: 04-13-2016 11:08-0500 Body height 152.4 cm Gail Villanueva RN [facility]; [facility] Work Phone: 04-13-2016 11:08-0500 Body mass index (BMI) [Ratio] 30.47 kg/m2 Gail Villanueva RN [facility]; [facility] Work Phone: 04-13-2016 11:08-0500 Body surface area Derived from formula 1.68 m2 Gail Villanueva RN [facility]; [facility] Work Phone: 04-13-2016 11:08-0500 Body temperature 98.4 [degF] Gail Villanueva RN [facility]; [facility] Work Phone: 04-13-2016 11:08-0500 Body weight 70.76 kg Gail Villanueva RN [facility]; [facility] Work Phone: 04-13-2016 11:08-0500 Diastolic blood pressure 74 mm[Hg] Gail Villanueva RN [facility]; [facility] Work Phone: 04-13-2016 11:08-0500 Heart rate 74 /min Gail Villanueva RN [facility]; [facility] Work Phone: 04-13-2016 11:08-0500 Respiratory rate 16 /min Gail Villanueva RN [facility]; [facility] Work Phone: 04-13-2016 11:08-0500 Systolic blood pressure 130 mm[Hg] Gail Villanueva RN [facility]; [facility] Work Phone: 12-25-2015 10:40-0400 Body height 152.4 cm Gail Villanueva RN [facility]; [facility] Work Phone: 12-25-2015 10:40-0400 Body mass index (BMI) [Ratio] 31.44 kg/m2 Gail Villanueva RN [facility]; [facility] Work Phone: 12-25-2015 10:40-0400 Body surface area Derived from formula 1.7 m2 Gail Villanueva RN [facility]; [facility] Work Phone: 12-25-2015 10:40-0400 Body temperature 98.2 [degF] Gail Villanueva RN [facility]; [facility] Work Phone: 12-25-2015 10:40-0400 Body weight 73.03 kg Gail Villanueva RN [facility]; [facility] Work Phone: 12-25-2015 10:40-0400 Diastolic blood pressure 74 mm[Hg] Gail Villanueva RN [facility]; [facility] Work Phone: 12-25-2015 10:40-0400 Heart rate 72 /min Gail Villanueva RN [facility]; [facility] Work Phone: 12-25-2015 10:40-0400 Respiratory rate 16 /min Gail Villanueva RN [facility]; [facility] Work Phone: 12-25-2015 10:40-0400 SaO2% (BldA) [Mass fraction] 98 % Gail Villanueva RN [facility]; [facility] Work Phone: 12-25-2015 10:40-0400 Systolic blood pressure 120 mm[Hg] Gail Villanueva RN [facility]; [facility] Work Phone: 12-16-2015 08:46-0400 Body height 152.4 cm Gail Villanueva RN [facility]; [facility] Work Phone: 12-16-2015 08:46-0400 Body mass index (BMI) [Ratio] 31.44 kg/m2 Gail Villanueva RN [facility]; [facility] Work Phone: 12-16-2015 08:46-0400 Body surface area Derived from formula 1.7 m2 Gail Villanueva RN [facility]; [facility] Work Phone: 12-16-2015 08:46-0400 Body temperature 97.9 [degF] Gail Villanueva RN [facility]; [facility] Work Phone: 12-16-2015 08:46-0400 Body weight 73.03 kg Gail Villanueva RN [facility]; [facility] Work Phone: 12-16-2015 08:46-0400 Diastolic blood pressure 72 mm[Hg] Gail Villanueva RN [facility]; [facility] Work Phone: 12-16-2015 08:46-0400 Heart rate 58 /min Gail Villanueva RN [facility]; [facility] Work Phone: 12-16-2015 08:46-0400 Respiratory rate 16 /min Gail Villanueva RN [facility]; [facility] Work Phone: 12-16-2015 08:46-0400 SaO2% (BldA) [Mass fraction] 98 % Gail Villanueva RN [facility]; [facility] Work Phone: 12-16-2015 08:46-0400 Systolic blood pressure 126 mm[Hg] Gail Villanueva RN [facility]; [facility] Work Phone: 12-10-2015 09:17-0400 Body height 152.4 cm Laurence Reinaldo DIETZ [facility]; [facility] Work Phone: 12-10-2015 09:17-0400 Body mass index (BMI) [Ratio] 31.47 kg/m2 Laurence Jose Eliasrb [employer] [facility]; [facility] Work Phone: 12-10-2015 09:17-0400 Body surface area Derived from formula 1.7 m2 Laurence Jose Eliasrb [employer] [facility]; [facility] Work Phone: 12-10-2015 09:17-0400 Body temperature 97.7 [degF] Laurence Jose Eliasrb [employer] [facility]; [facility] Work Phone: 12-10-2015 09:17-0400 Body weight 73.09 kg Laurence Jose Eliasrb [employer] [facility]; [facility] Work Phone: 12-10-2015 09:17-0400 Diastolic blood pressure 78 mm[Hg] Laurence Slarb [employer] [facility]; [facility] Work Phone: 12-10-2015 09:17-0400 Heart rate 56 /min Laurence Jose Eliasrb [employer] [facility]; [facility] Work Phone: 12-10-2015 09:17-0400 Respiratory rate 16 /min Laurence Jose Eliasrb [employer] [facility]; [facility] Work Phone: 12-10-2015 09:17-0400 SaO2% (BldA) [Mass fraction] 97 % Laurence Jose Eliasrb [employer] [facility]; [facility] Work Phone: 12-10-2015 09:17-0400 Systolic blood pressure 118 mm[Hg] Laurence Slarb [employer] [facility]; [facility] Work Phone: 11-19-2015 09:14-0400 Body height 152.4 cm José Miguel Bryson MD Work Phone: [facility]; [facility] Work Phone: 11-19-2015 09:14-0400 Body mass index (BMI) [Ratio] 31.47 kg/m2 José Miguel Bryson MD Work Phone: [facility]; [facility] Work Phone: 11-19-2015 09:14-0400 Body surface area Derived from formula 1.7 m2 José Miguel Bryson MD Work Phone: [facility]; [facility] Work Phone: 11-19-2015 09:14-0400 Body temperature 98 [degF] José Miguel Bryson MD Work Phone: [facility]; [facility] Work Phone: 11-19-2015 09:14-0400 Body weight 73.09 kg José Miguel Bryson MD Work Phone: [facility]; [facility] Work Phone: 11-19-2015 09:14-0400 Diastolic blood pressure 58 mm[Hg] José Miguel Bryson MD Work Phone: [facility]; [facility] Work Phone: 11-19-2015 09:14-0400 Heart rate 48 /min José Miguel Bryson MD Work Phone: [facility]; [facility] Work Phone: 11-19-2015 09:14-0400 Respiratory rate 15 /min José Miguel Bryson MD Work Phone: [facility]; [facility] Work Phone: 11-19-2015 09:14-0400 SaO2% (BldA) [Mass fraction] 95 % José Miguel Bryson MD Work Phone: [facility]; [facility] Work Phone: 11-19-2015 09:14-0400 Systolic blood pressure 100 mm[Hg] José Miguel Bryson MD Work Phone: [facility]; [facility] Work Phone: 11-12-2015 10:30-0400 Body height 152.4 cm Laurence Slarb [employer] [facility]; [facility] Work Phone: 11-12-2015 10:30-0400 Body mass index (BMI) [Ratio] 31.47 kg/m2 Laurence Slarb [employer] [facility]; [facility] Work Phone: 11-12-2015 10:30-0400 Body surface area Derived from formula 1.7 m2 Laurence Slarb [employer] [facility]; [facility] Work Phone: 11-12-2015 10:30-0400 Body temperature 97.4 [degF] Laurence Slarb [employer] [facility]; [facility] Work Phone: 11-12-2015 10:30-0400 Body weight 73.09 kg Laurence Slarb [employer] [facility]; [facility] Work Phone: 11-12-2015 10:30-0400 Diastolic blood pressure 74 mm[Hg] Laurence Slarb [employer] [facility]; [facility] Work Phone: 11-12-2015 10:30-0400 Heart rate 51 /min Luarence Slarb [employer] [facility]; [facility] Work Phone: 11-12-2015 10:30-0400 Respiratory rate 17 /min Laurence Slarb [employer] [facility]; [facility] Work Phone: 11-12-2015 10:30-0400 SaO2% (BldA) [Mass fraction] 97 % Laurence Slarb [employer] [facility]; [facility] Work Phone: 11-12-2015 10:30-0400 Systolic blood pressure 106 mm[Hg] Laurence Slarb [employer] [facility]; [facility] Work Phone: 08-07-2015 09:46-0400 Body Temperature 96.08 [degF] [facility] [place] Work Phone: 08-07-2015 09:46-0400 Weight 72.55 kg Rekha Vargas [facility] [place] Work Phone: 06-11-2015 10:19-0400 Body height 152.4 cm Irina Z[facility]; [facility] Work Phone: 06-11-2015 10:19-0400 Body mass index (BMI) [Ratio] 31.05 kg/m2 Irina Zavala [facility]; [facility] Work Phone: 06-11-2015 10:19-0400 Body surface area Derived from formula 1.69 m2 Irina Zavala [facility]; [facility] Work Phone: 06-11-2015 10:19-0400 Body temperature 98.3 [degF] Irina Zav[facility]; [facility] Work Phone: 06-11-2015 10:19-0400 Body weight 72.12 kg Irina Zavala [facility]; [facility] Work Phone: 06-11-2015 10:19-0400 Diastolic blood pressure 68 mm[Hg] Irina Zav[facility]; [facility] Work Phone: 06-11-2015 10:19-0400 Heart rate 57 /min Irina Zavala [facility]; [facility] Work Phone: 06-11-2015 10:19-0400 Respiratory rate 15 /min Irina Zav[facility]; [facility] Work Phone: 06-11-2015 10:19-0400 SaO2% (BldA) [Mass fraction] 98 % Irina Zavala [facility]; [facility] Work Phone: 06-11-2015 10:19-0400 Systolic blood pressure 98 mm[Hg] Irina Zav[facility]; [facility] Work Phone: 06-03-2015 09:43-0500 Body height 152.4 cm Laurence Slarb [employer] [facility]; [facility] Work Phone: 06-03-2015 09:43-0500 Body mass index (BMI) [Ratio] 32.03 kg/m2 Laurence Slarb [employer] [facility]; [facility] Work Phone: 06-03-2015 09:43-0500 Body surface area Derived from formula 1.72 m2 Laurence Slarb [employer] [facility]; [facility] Work Phone: 06-03-2015 09:43-0500 Body temperature 97.2 [degF] Laurence Slarb [employer] [facility]; [facility] Work Phone: 06-03-2015 09:43-0500 Body weight 74.39 kg Laurence Slarb [employer] [facility]; [facility] Work Phone: 06-03-2015 09:43-0500 Diastolic blood pressure 72 mm[Hg] Laurence Slarb [employer] [facility]; [facility] Work Phone: 06-03-2015 09:43-0500 Heart rate 62 /min Laurence Slarb [employer] [facility]; [facility] Work Phone: 06-03-2015 09:43-0500 Respiratory rate 16 /min Laurence Slarb [employer] [facility]; [facility] Work Phone: 06-03-2015 09:43-0500 SaO2% (BldA) [Mass fraction] 95 % Laurence Slarb [employer] [facility]; [facility] Work Phone: 06-03-2015 09:43-0500 Systolic blood pressure 108 mm[Hg] Laurence Slarb [employer] [facility]; [facility] Work Phone: 12-11-2014 09:36-0400 Body height 152.4 cm Irina Waddell [facility]; [facility] Work Phone: 12-11-2014 09:36-0400 Body mass index (BMI) [Ratio] 32.03 kg/m2 Irina Zav[facility]; [facility] Work Phone: 12-11-2014 09:36-0400 Body surface area Derived from formula 1.72 m2 Irina Zavala [facility]; [facility] Work Phone: 12-11-2014 09:36-0400 Body temperature 98.2 [degF] Irina Zavala [facility]; [facility] Work Phone: 12-11-2014 09:36-0400 Body weight 74.39 kg Irina Zavala [facility]; [facility] Work Phone: 12-11-2014 09:36-0400 Diastolic blood pressure 74 mm[Hg] Irina Waddell [facility]; [facility] Work Phone: 12-11-2014 09:36-0400 Heart rate 56 /min Irina Waddell [facility]; [facility] Work Phone: 12-11-2014 09:36-0400 Respiratory rate 16 /min Irina Waddell [facility]; [facility] Work Phone: 12-11-2014 09:36-0400 SaO2% (BldA) [Mass fraction] 96 % Irina Waddell [facility]; [facility] Work Phone: 12-11-2014 09:36-0400 Systolic blood pressure 116 mm[Hg] Irina Zavala [facility]; [facility] Work Phone: 10-14-2014 15:35-0400 Body height 152.4 cm Catherine A Fast DO Work Phone: [facility]; [facility] Work Phone: 10-14-2014 15:35-0400 Body mass index (BMI) [Ratio] 33.86 kg/m2 Catherine A Fast DO Work Phone: [facility]; [facility] Work Phone: 10-14-2014 15:35-0400 Body surface area Derived from formula 1.76 m2 Catherine A Fast DO Work Phone: [facility]; [facility] Work Phone: 10-14-2014 15:35-0400 Body temperature 97 [degF] Catherine A Fast DO Work Phone: [facility]; [facility] Work Phone: 10-14-2014 15:35-0400 Body weight 78.65 kg Catherine A Fast DO Work Phone: [facility]; [facility] Work Phone: 10-14-2014 15:35-0400 Diastolic blood pressure 62 mm[Hg] Catherine A Fast DO Work Phone: [facility]; [facility] Work Phone: 10-14-2014 15:35-0400 Heart rate 51 /min Catherine A Fast DO Work Phone: [facility]; [facility] Work Phone: 10-14-2014 15:35-0400 Respiratory rate 18 /min Catherine A Fast DO Work Phone: [facility]; [facility] Work Phone: 10-14-2014 15:35-0400 SaO2% (BldA) [Mass fraction] 97 % Catherine A Fast DO Work Phone: [facility]; [facility] Work Phone: 10-14-2014 15:35-0400 Systolic blood pressure 100 mm[Hg] Catherine A Fast DO Work Phone: [facility]; [facility] Work Phone: 09-11-2014 09:38-0400 Body height 152.4 cm Irina Waddell [facility]; [facility] Work Phone: 09-11-2014 09:38-0400 Body mass index (BMI) [Ratio] 36.33 kg/m2 Irina Waddell [facility]; [facility] Work Phone: 09-11-2014 09:38-0400 Body surface area Derived from formula 1.81 m2 Irina Zavala [facility]; [facility] Work Phone: 09-11-2014 09:38-0400 Body temperature 98.7 [degF] Irina Bairon [facility]; [facility] Work Phone: 09-11-2014 09:38-0400 Body weight 84.37 kg Irina Waddell [facility]; [facility] Work Phone: 09-11-2014 09:38-0400 Diastolic blood pressure 84 mm[Hg] Irina Waddell [facility]; [facility] Work Phone: 09-11-2014 09:38-0400 Heart rate 62 /min Irina Waddell [facility]; [facility] Work Phone: 09-11-2014 09:38-0400 Respiratory rate 16 /min Irina Waddell [facility]; [facility] Work Phone: 09-11-2014 09:38-0400 Systolic blood pressure 126 mm[Hg] Irina Bairon [facility]; [facility] Work Phone: 04-01-2014 15:42-0500 Body height 152.4 cm Irina Waddell [facility]; [facility] Work Phone: 04-01-2014 15:42-0500 Body mass index (BMI) [Ratio] 37.69 kg/m2 Irina Waddell [facility]; [facility] Work Phone: 04-01-2014 15:42-0500 Body surface area Derived from formula 1.84 m2 Irina Waddell [facility]; [facility] Work Phone: 04-01-2014 15:42-0500 Body temperature 97 [degF] Irina Waddell [facility]; [facility] Work Phone: 04-01-2014 15:42-0500 Body weight 87.54 kg Irina Waddell [facility]; [facility] Work Phone: 04-01-2014 15:42-0500 Diastolic blood pressure 76 mm[Hg] Irina Zavala [facility]; [facility] Work Phone: 04-01-2014 15:42-0500 Heart rate 68 /min Irina Waddell [facility]; [facility] Work Phone: 04-01-2014 15:42-0500 Respiratory rate 16 /min Irina Waddell [facility]; [facility] Work Phone: 04-01-2014 15:42-0500 Systolic blood pressure 100 mm[Hg] Irina Waddell [facility]; [facility] Work Phone: 03-06-2014 09:30-0500 Body height 152.4 cm Irina Zavala [facility]; [facility] Work Phone: 03-06-2014 09:30-0500 Body mass index (BMI) [Ratio] 37.69 kg/m2 Irina Waddell [facility]; [facility] Work Phone: 03-06-2014 09:30-0500 Body surface area Derived from formula 1.84 m2 Irina Waddell [facility]; [facility] Work Phone: 03-06-2014 09:30-0500 Body temperature 97.9 [degF] Irina Waddell [facility]; [facility] Work Phone: 03-06-2014 09:30-0500 Body weight 87.54 kg Irina Waddell [facility]; [facility] Work Phone: 03-06-2014 09:30-0500 Diastolic blood pressure 60 mm[Hg] Irina Waddell [facility]; [facility] Work Phone: 03-06-2014 09:30-0500 Heart rate 56 /min Irina Waddell [facility]; [facility] Work Phone: 03-06-2014 09:30-0500 Respiratory rate 16 /min Irina Waddell [facility]; [facility] Work Phone: 03-06-2014 09:30-0500 Systolic blood pressure 94 mm[Hg] Irina Zavala [facility]; [facility] Work Phone: 02-25-2014 08:57-0500 Body height 152.4 cm Irina Waddell [facility]; [facility] Work Phone: 02-25-2014 08:57-0500 Body mass index (BMI) [Ratio] 37.69 kg/m2 Irina Waddell [facility]; [facility] Work Phone: 02-25-2014 08:57-0500 Body surface area Derived from formula 1.84 m2 Irina Waddell [facility]; [facility] Work Phone: 02-25-2014 08:57-0500 Body temperature 97.4 [degF] Irina Waddell [facility]; [facility] Work Phone: 02-25-2014 08:57-0500 Body weight 87.54 kg Irina Waddell [facility]; [facility] Work Phone: 02-25-2014 08:57-0500 Diastolic blood pressure 70 mm[Hg] Irina Waddell [facility]; [facility] Work Phone: 02-25-2014 08:57-0500 Heart rate 76 /min Irina Waddell [facility]; [facility] Work Phone: 02-25-2014 08:57-0500 Respiratory rate 16 /min Irina Waddell [facility]; [facility] Work Phone: 02-25-2014 08:57-0500 Systolic blood pressure 122 mm[Hg] Irina Waddell [facility]; [facility] Work Phone: 09-21-2013 10:32-0400 Body height 152.4 cm Tabitha Bianchi CMA [facility]; [facility] Work Phone: 09-21-2013 10:32-0400 Body mass index (BMI) [Ratio] 37.3 kg/m2 Tabitha Bianchi [facility]; [facility] Work Phone: 09-21-2013 10:32-0400 Body surface area Derived from formula 1.83 m2 Tabitha Bianchi [facility]; [facility] Work Phone: 09-21-2013 10:32-0400 Body weight 86.64 kg Tabitha Bianchi [facility]; [facility] Work Phone: 09-21-2013 10:32-0400 Diastolic blood pressure 82 mm[Hg] Tabitha Bianchi [facility]; [facility] Work Phone: 09-21-2013 10:32-0400 Heart rate 64 /min Tabitha Bianchi [facility]; [facility] Work Phone: 09-21-2013 10:32-0400 Respiratory rate 16 /min Tabitha Bianchi [facility]; [facility] Work Phone: 09-21-2013 10:32-0400 SaO2% (BldA) [Mass fraction] 96 % Tabitha Bianchi [facility]; [facility] Work Phone: 09-21-2013 10:32-0400 Systolic blood pressure 115 mm[Hg] Tabitha Bianchi [facility]; [facility] Work Phone: 09-10-2013 11:18-0400 Body height 152.4 cm Tabitha Bianchi [facility]; [facility] Work Phone: 09-10-2013 11:18-0400 Body mass index (BMI) [Ratio] 37.5 kg/m2 Tabitha Bianchi [facility]; [facility] Work Phone: 09-10-2013 11:18-0400 Body surface area Derived from formula 1.83 m2 Tabitha Bianchi [facility]; [facility] Work Phone: 09-10-2013 11:18-0400 Body temperature 98.4 [degF] Tabitha Bianchi [facility]; [facility] Work Phone: 09-10-2013 11:18-0400 Body weight 87.09 kg Tabitha Bianchi [facility]; [facility] Work Phone: 09-10-2013 11:18-0400 Diastolic blood pressure 72 mm[Hg] Tabitha Bianchi [facility]; [facility] Work Phone: 09-10-2013 11:18-0400 Heart rate 56 /[facility]; [facility] Work Phone: 09-10-2013 11:18-0400 [facility]piratory rate 16 /[facility]; [facility] Work Phone: 09-10-2013 11:18-0400 SaO2% (BldA) [Mass fraction] 98 % [facility]; [facility] Work Phone: 09-10-2013 11:18-0400 Systolic blood pressure 118 mm[Hg] [facility]; [facility] Work Phone: 09-05-2013 15:11-0400 Body height 152.4 cm Vicki Hinson [facility]; [facility] Work Phone: 09-05-2013 15:11-0400 Body mass index (BMI) [Ratio] 37.5 kg/m2 Vickilucas Hinson [facility]; [facility] Work Phone: 09-05-2013 15:11-0400 Body surface area Derived from formula 1.83 m2 Vickilucas Hinson [facility]; [facility] Work Phone: 09-05-2013 15:11-0400 Body temperature 96.4 [degF] Vickilucas Hinson [facility]; [facility] Work Phone: 09-05-2013 15:11-0400 Body weight 87.09 kg Vickilucas Hinson [facility]; [facility] Work Phone: 09-05-2013 15:11-0400 Diastolic blood pressure 72 mm[Hg] Vicki Hinson [facility]; [facility] Work Phone: 09-05-2013 15:11-0400 Heart rate 56 /min Vickilucas Hinson [facility]; [facility] Work Phone: 09-05-2013 15:11-0400 Respiratory rate 18 /min Vickilucas Hinson [facility]; [facility] Work Phone: 09-05-2013 15:11-0400 SaO2% (BldA) [Mass fraction] 96 % Vicki Hinson [facility]; [facility] Work Phone: 09-05-2013 15:11-0400 Systolic blood pressure 124 mm[Hg] Vickilucas Hinson [facility]; [facility] Work Phone: 07-26-2013 09:02-0400 Body height 152.4 cm Kirsten Pearson RN [facility]; [facility] Work Phone: 07-26-2013 09:02-0400 Body mass index (BMI) [Ratio] 37.5 kg/m2 Kirsten Pearson RN [facility]; [facility] Work Phone: 07-26-2013 09:02-0400 Body surface area Derived from formula 1.83 m2 Kirsten Pearson RN [facility]; [facility] Work Phone: 07-26-2013 09:02-0400 Body temperature 96 [degF] Kirsten Pearson RN [facility]; [facility] Work Phone: 07-26-2013 09:02-0400 Body weight 87.09 kg Kirsten Pearson RN [facility]; [facility] Work Phone: 07-26-2013 09:02-0400 Diastolic blood pressure 70 mm[Hg] Kirsten Pearson RN [facility]; [facility] Work Phone: 07-26-2013 09:02-0400 Heart rate 54 /min Kirsten Pearson RN [facility]; [facility] Work Phone: 07-26-2013 09:02-0400 Respiratory rate 20 /min Kirsten Pearson RN [facility]; [facility] Work Phone: 07-26-2013 09:02-0400 SaO2% (BldA) [Mass fraction] 96 % Kirsten Pearson RN [facility]; [facility] Work Phone: 07-26-2013 09:02-0400 Systolic blood pressure 112 mm[Hg] Kirsten Pearson RN [facility]; [facility] Work Phone: 07-18-2013 11:34-0400 Body height 152.4 cm Irina Zavala [facility]; [facility] Work Phone: 07-18-2013 11:34-0400 Body mass index (BMI) [Ratio] 37.5 kg/m2 Irina Zavala [facility]; [facility] Work Phone: 07-18-2013 11:34-0400 Body surface area Derived from formula 1.83 m2 Irina Zavala [facility]; [facility] Work Phone: 07-18-2013 11:34-0400 Body temperature 97.8 [degF] Irina Zavala [facility]; [facility] Work Phone: 07-18-2013 11:34-0400 Body weight 87.09 kg [facility]ina [facility]; [facility] Work Phone: 07-18-2013 11:34-0400 Diastolic blood pressure 64 mm[Hg] [facility]; [facility] Work Phone: 07-18-2013 11:34-0400 Heart rate 52 /min [facility]; [facility] Work Phone: 07-18-2013 11:34-0400 Respiratory rate 16 /min Irina [facility]; [facility] Work Phone: 07-18-2013 11:34-0400 Systolic blood pressure 100 mm[Hg] [facility]ina [facility]; [facility] Work Phone: 07-04-2013 [id number] Body height 152.4 cm Irina Osorioaura [facility]; [facility] Work Phone: 07-04-2013 14:11-0400 Body mass index (BMI) [Ratio] 37.69 kg/m2 Irina Bairon [facility]; [facility] Work Phone: 07-04-2013 14:11-0400 Body surface area Derived from formula 1.84 m2 Irina Bairon [facility]; [facility] Work Phone: 07-04-2013 14:11-0400 Body temperature 96.6 [degF] Irina Bairon [facility]; [facility] Work Phone: 07-04-2013 14:11-0400 Body weight 87.54 kg Irina Bairon [facility]; [facility] Work Phone: 07-04-2013 14:11-0400 Diastolic blood pressure 72 mm[Hg] Irina Bairon [facility]; [facility] Work Phone: 07-04-2013 14:11-0400 Heart rate 60 /min Irina Bairon [facility]; [facility] Work Phone: 07-04-2013 14:11-0400 Respiratory rate 18 /min Irina Bairon [facility]; [facility] Work Phone: 07-04-2013 14:11-0400 Systolic blood pressure 110 mm[Hg] Irina Waddell [facility]; [facility] Work Phone: 06-01-2013 12:18-0500 Body height 152.4 cm Irina Bairon [facility]; [facility] Work Phone: 06-01-2013 12:18-0500 Body mass index (BMI) [Ratio] 37.69 kg/m2 Irina Bairon [facility]; [facility] Work Phone: 06-01-2013 12:18-0500 Body surface area Derived from formula 1.84 m2 Irina Waddell [facility]; [facility] Work Phone: 06-01-2013 12:18-0500 Body temperature 97.2 [degF] Irina Waddell [facility]; [facility] Work Phone: 06-01-2013 12:18-0500 Body weight 87.54 kg Irina Waddell [facility]; [facility] Work Phone: 06-01-2013 12:18-0500 Diastolic blood pressure 88 mm[Hg] Irina Waddell [facility]; [facility] Work Phone: 06-01-2013 12:18-0500 Heart rate 74 /min Irina Waddell [facility]; [facility] Work Phone: 06-01-2013 12:18-0500 Respiratory rate 18 /min Irina Waddell [facility]; [facility] Work Phone: 06-01-2013 12:18-0500 Systolic blood pressure 128 mm[Hg] Irina Waddell [facility]; [facility] Work Phone: 02-06-2013 10:44-0500 Body temperature 98 [degF] Irina Waddell [facility]; [facility] Work Phone: 02-06-2013 10:44-0500 Diastolic blood pressure 80 mm[Hg] Irina Waddell [facility]; [facility] Work Phone: 02-06-2013 10:44-0500 Heart rate 62 /min Irina Waddell [facility]; [facility] Work Phone: 02-06-2013 10:44-0500 Respiratory rate 18 /min Irina Waddell [facility]; [facility] Work Phone: 02-06-2013 10:44-0500 Systolic blood pressure 124 mm[Hg] Irina Waddell [facility]; [facility] Work Phone: 01-01-2013 14:57-0400 Body height 152.4 cm Irina Bairon [facility]; [facility] Work Phone: 01-01-2013 14:57-0400 Body mass index (BMI) [Ratio] 37.69 kg/m2 Irina Bairon [facility]; [facility] Work Phone: 01-01-2013 14:57-0400 Body surface area Derived from formula 1.84 m2 Irina Waddell [facility]; [facility] Work Phone: 01-01-2013 14:57-0400 Body temperature 97.9 [degF] Irina Bairon [facility]; [facility] Work Phone: 01-01-2013 14:57-0400 Body weight 87.54 kg Irina Bairon [facility]; [facility] Work Phone: 01-01-2013 14:57-0400 Diastolic blood pressure 74 mm[Hg] Irina Waddell [facility]; [facility] Work Phone: 01-01-2013 14:57-0400 Heart rate 60 /min Irina Waddell [facility]; [facility] Work Phone: 01-01-2013 14:57-0400 Respiratory rate 18 /min Irina Bairon [facility]; [facility] Work Phone: 01-01-2013 14:57-0400 Systolic blood pressure 118 mm[Hg] Irina Waddell [facility]; [facility] Work Phone: 07-12-2012 09:46-0400 Body height 152.4 cm Irina Waddell [facility]; [facility] Work Phone: 07-12-2012 09:46-0400 Body mass index (BMI) [Ratio] 36.72 kg/m2 Irina Waddell [facility]; [facility] Work Phone: 07-12-2012 09:46-0400 Body surface area Derived from formula 1.82 m2 Irina Waddell [facility]; [facility] Work Phone: 07-12-2012 09:46-0400 Body temperature 97.2 [degF] Irina Waddell [facility]; [facility] Work Phone: 07-12-2012 09:46-0400 Body weight 85.28 kg Irina Waddell [facility]; [facility] Work Phone: 07-12-2012 09:46-0400 Diastolic blood pressure 64 mm[Hg] Irina Waddell [facility]; [facility] Work Phone: 07-12-2012 09:46-0400 Heart rate 56 /min Irina Waddell [facility]; [facility] Work Phone: 07-12-2012 09:46-0400 Respiratory rate 16 /min Irina Waddell [facility]; [facility] Work Phone: 07-12-2012 09:46-0400 Systolic blood pressure 100 mm[Hg] Irina Waddell [facility]; [facility] Work Phone: 06-20-2012 08:03-0400 Body height 152.4 cm Enriqueta Gibson LPN [facility]; [facility] Work Phone: 06-20-2012 08:03-0400 Body mass index (BMI) [Ratio] 36.85 kg/m2 Enriqueta Gibson LPN [facility]; [facility] Work Phone: 06-20-2012 08:03-0400 Body surface area Derived from formula 1.82 m2 Enriqueta Gibson LPN [facility]; [facility] Work Phone: 06-20-2012 08:03-0400 Body temperature 98.8 [degF] Enriqueta Gibson LPN [facility]; [facility] Work Phone: 06-20-2012 08:03-0400 Body weight 85.59 kg Enriqueta Gibson LPN [facility]; [facility] Work Phone: 06-20-2012 08:03-0400 Diastolic blood pressure 78 mm[Hg] Enriqueta Gibson LPN [facility]; [facility] Work Phone: 06-20-2012 08:03-0400 Heart rate 70 /min Enriqueta Gibson LPN [facility]; [facility] Work Phone: 06-20-2012 08:03-0400 Respiratory rate 17 /min Enriqueta Gibson LPN [facility]; [facility] Work Phone: 06-20-2012 08:03-0400 Systolic blood pressure 124 mm[Hg] Enriqueta Gibson LPN [facility]; [facility] Work Phone: 03-08-2012 09:41-0500 Body temperature 97.1 [degF] Gail Villanueva RN [facility]; [facility] Work Phone: 03-08-2012 09:41-0500 Body weight 85.59 kg Gail Villanueva RN [facility]; [facility] Work Phone: 03-08-2012 09:41-0500 Diastolic blood pressure 64 mm[Hg] Gail Villanueva RN [facility]; [facility] Work Phone: 03-08-2012 09:41-0500 Heart rate 56 /min Gail Villanueva RN [facility]; [facility] Work Phone: 03-08-2012 09:41-0500 Respiratory rate 16 /min Gail Villanueva RN [facility]; [facility] Work Phone: 03-08-2012 09:41-0500 Systolic blood pressure 124 mm[Hg] Gail Villanueva RN [facility]; [facility] Work Phone: 11-12-2011 08:10-0400 Body temperature 97.7 [degF] Jennifer Huang LPN [facility]; [facility] Work Phone: 11-12-2011 08:10-0400 Body weight 85.28 kg Jennifer Huang LPN [facility]; [facility] Work Phone: 11-12-2011 08:10-0400 Diastolic blood pressure 70 mm[Hg] Jennifer Huang LPN [facility]; [facility] Work Phone: 11-12-2011 08:10-0400 Heart rate 68 /min Jennifer Huang LPN [facility]; [facility] Work Phone: 11-12-2011 08:10-0400 Systolic blood pressure 122 mm[Hg] Jennifer Huang LPN [facility]; [facility] Work Phone: 11-09-2011 10:16-0400 Body height 154.94 cm Irina Waddell [facility]; [facility] Work Phone: 11-09-2011 10:16-0400 Body mass index (BMI) [Ratio] 35.52 kg/m2 Irina Waddell [facility]; [facility] Work Phone: 11-09-2011 10:16-0400 Body surface area Derived from formula 1.84 m2 Irina Waddell [facility]; [facility] Work Phone: 11-09-2011 10:16-0400 Body temperature 98.4 [degF] Irina Waddell [facility]; [facility] Work Phone: 11-09-2011 10:16-0400 Body weight 85.28 kg Irina Waddell [facility]; [facility] Work Phone: 11-09-2011 10:16-0400 Diastolic blood pressure 62 mm[Hg] Irina Waddell [facility]; [facility] Work Phone: 11-09-2011 10:16-0400 Heart rate 64 /min Irina Waddell [facility]; [facility] Work Phone: 11-09-2011 10:16-0400 Respiratory rate 16 /min Irina Waddell [facility]; [facility] Work Phone: 11-09-2011 10:16-0400 Systolic blood pressure 108 mm[Hg] Irina Waddell [facility]; [facility] Work Phone: 10-26-2011 08:24-0400 Body height 154.94 cm Enriqueta Arthur DIETZ [facility]; [facility] Work Phone: 10-26-2011 08:24-0400 Body mass index (BMI) [Ratio] 35.33 kg/m2 Enriqueta Arthur DIET[facility]; [facility] Work Phone: 10-26-2011 08:24-0400 Body surface area Derived from formula 1.84 m2 Enriqueta Arthur DIETZ [facility]; [facility] Work Phone: 10-26-2011 08:24-0400 Body temperature 97.8 [degF] Enriqueta Arthur DIETZ [facility]; [facility] Work Phone: 10-26-2011 08:24-0400 Body weight 84.82 kg Enriqueta Arthur DIET[facility]; [facility] Work Phone: 10-26-2011 08:24-0400 Diastolic blood pressure 70 mm[Hg] Enriqueta Arthur DIETZ [facility]; [facility] Work Phone: 10-26-2011 08:24-0400 Heart rate 78 /min Enriqueta Arthur DIETZ [facility]; [facility] Work Phone: 10-26-2011 08:24-0400 Respiratory rate 16 /min Enriqueta Arthur DIETZ [facility]; [facility] Work Phone: 10-26-2011 08:24-0400 Systolic blood pressure 112 mm[Hg] Enriqueta Arthur DIETZ [facility]; [facility] Work Phone: 10-22-2011 10:47-0400 Body height 154.94 cm Enriqueta Arthur DIETZ [facility]; [facility] Work Phone: 10-22-2011 10:47-0400 Body mass index (BMI) [Ratio] 35.33 kg/m2 Enriqueta Gibson LPN [facility]; [facility] Work Phone: 10-22-2011 10:47-0400 Body surface area Derived from formula 1.84 m2 Enriqueta Gibson J LUIS [facility]; [facility] Work Phone: 10-22-2011 10:47-0400 Body temperature 98.2 [degF] Enriqueta Gibson J LUIS [facility]; [facility] Work Phone: 10-22-2011 10:47-0400 Body weight 84.82 kg Enriqueta Gibson [employer] [facility]; [facility] Work Phone: 10-22-2011 10:47-0400 Diastolic blood pressure 78 mm[Hg] Enriqueta Gibson J LUIS [facility]; [facility] Work Phone: 10-22-2011 10:47-0400 Heart rate 72 /min Enriqueta Gibson J LUIS [facility]; [facility] Work Phone: 10-22-2011 10:47-0400 Respiratory rate 16 /min Enriqueta Gibson J LUIS [facility]; [facility] Work Phone: 10-22-2011 10:47-0400 Systolic blood pressure 134 mm[Hg] Enriqueta Gibson [employer] [facility]; [facility] Work Phone: 10-12-2011 15:16-0400 Body height 154.94 cm Enriqueta Gibson J LUIS [facility]; [facility] Work Phone: 10-12-2011 15:16-0400 Body mass index (BMI) [Ratio] 35.33 kg/m2 Enriqueta Gibson J LUIS [facility]; [facility] Work Phone: 10-12-2011 15:16-0400 Body surface area Derived from formula 1.84 m2 Enriqueta Gibson J LUIS [facility]; [facility] Work Phone: 10-12-2011 15:16-0400 Body temperature 98 [degF] Enriqueta Gibson J LUIS [facility]; [facility] Work Phone: 10-12-2011 15:16-0400 Body weight 84.82 kg Enriqueta Arthur DIET[facility]; [facility] Work Phone: 10-12-2011 15:16-0400 Diastolic blood pressure 76 mm[Hg] Enriqueta Gibson LPN [facility]; [facility] Work Phone: 10-12-2011 15:16-0400 Heart rate 72 /min Enriqueta Gibson LPN [facility]; [facility] Work Phone: 10-12-2011 15:16-0400 Respiratory rate 16 /min Enriqueta Gibson LPN [facility]; [facility] Work Phone: 10-12-2011 15:16-0400 Systolic blood pressure 120 mm[Hg] Enriqueta Gibson LPN [facility]; [facility] Work Phone: 09-13-2011 10:15-0400 Body height 154.94 cm Angelica Barone RN [facility]; [facility] Work Phone: 09-13-2011 10:15-0400 Body mass index (BMI) [Ratio] 35.33 kg/m2 Angelica Barone RN [facility]; [facility] Work Phone: 09-13-2011 10:15-0400 Body surface area Derived from formula 1.84 m2 Angelica Barone RN [facility]; [facility] Work Phone: 09-13-2011 10:15-0400 Body temperature 97.9 [degF] Angelica Barone RN [facility]; [facility] Work Phone: 09-13-2011 10:15-0400 Body weight 84.82 kg Angelica Barone RN [facility]; [facility] Work Phone: 09-13-2011 10:15-0400 Diastolic blood pressure 64 mm[Hg] Angelica Barone RN [facility]; [facility] Work Phone: 09-13-2011 10:15-0400 Heart rate 60 /min Angelica Barone RN [facility]; [facility] Work Phone: 09-13-2011 10:15-0400 Respiratory rate 16 /min Angelica Barone RN [facility]; [facility] Work Phone: 09-13-2011 10:15-0400 Systolic blood pressure 118 mm[Hg] Angelica Barone RN [facility]; [facility] Work Phone: 08-24-2011 08:08-0400 Body height 154.94 cm Enriqueta Gibson LPN [facility]; [facility] Work Phone: 08-24-2011 08:08-0400 Body mass index (BMI) [Ratio] 34.58 kg/m2 Enriqueta Gibson LPN [facility]; [facility] Work Phone: 08-24-2011 08:08-0400 Body surface area Derived from formula 1.82 m2 Enriqueta Gibson LPN [facility]; [facility] Work Phone: 08-24-2011 08:08-0400 Body temperature 98.6 [degF] Enriqueta Gibson LPN [facility]; [facility] Work Phone: 08-24-2011 08:08-0400 Body weight 83.01 kg Enriqueta Gibson LPN [facility]; [facility] Work Phone: 08-24-2011 08:08-0400 Diastolic blood pressure 70 mm[Hg] Enriqueta Gibson LPN [facility]; [facility] Work Phone: 08-24-2011 08:08-0400 Heart rate 66 /min Enriqueta Gibson LPN [facility]; [facility] Work Phone: 08-24-2011 08:08-0400 Respiratory rate 16 /min Enriqueta Gibson LPN [facility]; [facility] Work Phone: 08-24-2011 08:08-0400 Systolic blood pressure 118 mm[Hg] Enriqueta Gibson LPN [facility]; [facility] Work Phone: 07-06-2011 09:38-0400 Body height 154.94 cm Irina Zavala [facility]; [facility] Work Phone: 07-06-2011 09:38-0400 Body temperature 96.3 [degF] Irina Waddell [facility]; [facility] Work Phone: 07-06-2011 09:38-0400 Diastolic blood pressure 78 mm[Hg] Irina Waddell [facility]; [facility] Work Phone: 07-06-2011 09:38-0400 Heart rate 56 /min Irina Waddell [facility]; [facility] Work Phone: 07-06-2011 09:38-0400 Respiratory rate 16 /min Irina Waddell [facility]; [facility] Work Phone: 07-06-2011 09:38-0400 Systolic blood pressure 116 mm[Hg] Irina Waddell [facility]; [facility] Work Phone: 07-05-2011 09:08-0400 Body height 154.94 cm Enriqueta Gibson LPN [facility]; [facility] Work Phone: 07-05-2011 09:08-0400 Body mass index (BMI) [Ratio] 34.58 kg/m2 Enriqueta Gibson LPN [facility]; [facility] Work Phone: 07-05-2011 09:08-0400 Body surface area Derived from formula 1.82 m2 Enriqueta Gibson LPN [facility]; [facility] Work Phone: 07-05-2011 09:08-0400 Body temperature 98 [degF] Enriqueta Gibson LPN [facility]; [facility] Work Phone: 07-05-2011 09:08-0400 Body weight 83.01 kg Enriqueta Gibson LPN [facility]; [facility] Work Phone: 07-05-2011 09:08-0400 Diastolic blood pressure 68 mm[Hg] Enriqueta Gibson LPN [facility]; [facility] Work Phone: 07-05-2011 09:08-0400 Heart rate 62 /min Enriqueta Gibson LPN [facility]; [facility] Work Phone: 07-05-2011 09:08-0400 Respiratory rate 15 /min Enriqueta Arthur DIETZ [facility]; [facility] Work Phone: 07-05-2011 09:08-0400 Systolic blood pressure 120 mm[Hg] Enriqueta Gibson LPN [facility]; [facility] Work Phone: 06-15-2011 09:25-0400 Body height 154.94 cm Angelica Barone RN [facility]; [facility] Work Phone: 06-15-2011 09:25-0400 Body mass index (BMI) [Ratio] 34.58 kg/m2 Angelica Barone RN [facility]; [facility] Work Phone: 06-15-2011 09:25-0400 Body surface area Derived from formula 1.82 m2 Angelica Barone RN [facility]; [facility] Work Phone: 06-15-2011 09:25-0400 Body temperature 97.7 [degF] Angelica Barone RN [facility]; [facility] Work Phone: 06-15-2011 09:25-0400 Body weight 83.01 kg Angelica Barone RN [facility]; [facility] Work Phone: 06-15-2011 09:25-0400 Diastolic blood pressure 64 mm[Hg] Angelica Barone RN [facility]; [facility] Work Phone: 06-15-2011 09:25-0400 Heart rate 64 /min Angelica Barone RN [facility]; [facility] Work Phone: 06-15-2011 09:25-0400 Respiratory rate 16 /min Angelica Barone RN [facility]; [facility] Work Phone: 06-15-2011 09:25-0400 Systolic blood pressure 110 mm[Hg] Angelica Barone RN [facility]; [facility] Work Phone: 04-14-2011 10:08-0500 Body height 154.94 cm Irina Waddell [facility]; [facility] Work Phone: 04-14-2011 10:08-0500 Body mass index (BMI) [Ratio] 34.96 kg/m2 Irina Bairon [facility]; [facility] Work Phone: 04-14-2011 10:08-0500 Body surface area Derived from formula 1.83 m2 Irina Waddell [facility]; [facility] Work Phone: 04-14-2011 10:08-0500 Body temperature 97.9 [degF] Irina Waddell [facility]; [facility] Work Phone: 04-14-2011 10:08-0500 Body weight 83.92 kg Irina Waddell [facility]; [facility] Work Phone: 04-14-2011 10:08-0500 Diastolic blood pressure 82 mm[Hg] Irina Waddell [facility]; [facility] Work Phone: 04-14-2011 10:08-0500 Heart rate 64 /min Irina Waddell [facility]; [facility] Work Phone: 04-14-2011 10:08-0500 Respiratory rate 16 /min Irina Waddell [facility]; [facility] Work Phone: 04-14-2011 10:08-0500 Systolic blood pressure 118 mm[Hg] Irina Waddell [facility]; [facility] Work Phone: 03-31-2011 09:54-0500 Body height 154.94 cm Irina Waddell [facility]; [facility] Work Phone: 03-31-2011 09:54-0500 Body mass index (BMI) [Ratio] 34.96 kg/m2 Irina Waddell [facility]; [facility] Work Phone: 03-31-2011 09:54-0500 Body surface area Derived from formula 1.83 m2 Irina Bairon [facility]; [facility] Work Phone: 03-31-2011 09:54-0500 Body temperature 96.9 [degF] Irina Bairon [facility]; [facility] Work Phone: 03-31-2011 09:54-0500 Body weight 83.92 kg Irina Bairon [facility]; [facility] Work Phone: 03-31-2011 09:54-0500 Diastolic blood pressure 70 mm[Hg] Irina Bairon [facility]; [facility] Work Phone: 03-31-2011 09:54-0500 Heart rate 60 /min Irina Waddell [facility]; [facility] Work Phone: 03-31-2011 09:54-0500 Respiratory rate 16 /min Irina Waddell [facility]; [facility] Work Phone: 03-31-2011 09:54-0500 Systolic blood pressure 122 mm[Hg] Irina Bairon [facility]; [facility] Work Phone: 03-03-2011 09:47-0500 Body temperature 97.2 [degF] Phuc Riding [facility]; [facility] Work Phone: 03-03-2011 09:47-0500 Diastolic blood pressure 78 mm[Hg] Phuc Riding [facility]; [facility] Work Phone: 03-03-2011 09:47-0500 Heart rate 66 /min Phuc Riding [facility]; [facility] Work Phone: 03-03-2011 09:47-0500 Respiratory rate 16 /min Phuc Riding [facility]; [facility] Work Phone: 03-03-2011 09:47-0500 Systolic blood pressure 118 mm[Hg] Phuc Riding [facility]; [facility] Work Phone: 02-16-2011 15:38-0500 Body height 154.94 cm Enriqueta Gibson LPN [facility]; [facility] Work Phone: 02-16-2011 15:38-0500 Body mass index (BMI) [Ratio] 34.01 kg/m2 Enriqueta Arthur DIETZ [facility]; [facility] Work Phone: 02-16-2011 15:38-0500 Body surface area Derived from formula 1.81 m2 Enriquetashar Gibson LPN [facility]; [facility] Work Phone: 02-16-2011 15:38-0500 Body temperature 97.3 [degF] Enriqueta Arthur J LUIS [facility]; [facility] Work Phone: 02-16-2011 15:38-0500 Body weight 81.65 kg Enriqueta Arthur DIET[facility]; [facility] Work Phone: 02-16-2011 15:38-0500 Diastolic blood pressure 72 mm[Hg] Enriqueta Gibson LPN [facility]; [facility] Work Phone: 02-16-2011 15:38-0500 Heart rate 64 /min Enriqueta Gibson LPN [facility]; [facility] Work Phone: 02-16-2011 15:38-0500 Respiratory rate 16 /min Enriqueta Arthur DI[facility]; [facility] Work Phone: 02-16-2011 15:38-0500 SaO2% (BldA) [Mass fraction] 97 % Enriqueta Gibson LPN [facility]; [facility] Work Phone: 02-16-2011 15:38-0500 Systolic blood pressure 112 mm[Hg] Enriqueta Gibson LPN [facility]; [facility] Work Phone: 01-07-2011 08:20-0400 Body height 154.94 cm GERMAN Mao LPN [facility]; [facility] Work Phone: 01-07-2011 08:20-0400 Body mass index (BMI) [Ratio] 34.01 kg/m2 GERMAN Mao LPN [facility]; [facility] Work Phone: 01-07-2011 08:20-0400 Body surface area Derived from formula 1.81 m2 GERMAN Mao LPN [facility]; [facility] Work Phone: 01-07-2011 08:20-0400 Body temperature 98 [degF] GERMAN Mao LPN [facility]; [facility] Work Phone: 01-07-2011 08:20-0400 Body weight 81.65 kg GERMAN Mao LPN [facility]; [facility] Work Phone: 01-07-2011 08:20-0400 Diastolic blood pressure 78 mm[Hg] GERMAN Mao LPN [facility]; [facility] Work Phone: 01-07-2011 08:20-0400 Heart rate 84 /min GERMAN Mao LPN [facility]; [facility] Work Phone: 01-07-2011 08:20-0400 Respiratory rate 20 /min GERMAN Mao LPN [facility]; [facility] Work Phone: 01-07-2011 08:20-0400 SaO2% (BldA) [Mass fraction] 95 % GERMANDELPHINE Mao LPN [facility]; [facility] Work Phone: 01-07-2011 08:20-0400 Systolic blood pressure 120 mm[Hg] GERMAN Mao LPN [facility]; [facility] Work Phone: 12-14-2010 08:46-0400 Body height 154.94 cm Irina Waddell [facility]; [facility] Work Phone: 12-14-2010 08:46-0400 Body mass index (BMI) [Ratio] 34.01 kg/m2 Irina Waddell [facility]; [facility] Work Phone: 12-14-2010 08:46-0400 Body surface area Derived from formula 1.81 m2 Irina Waddell [facility]; [facility] Work Phone: 12-14-2010 08:46-0400 Body temperature 97.2 [degF] Irina Bairon [facility]; [facility] Work Phone: 12-14-2010 08:46-0400 Body weight 81.65 kg Irina Bairon [facility]; [facility] Work Phone: 12-14-2010 08:46-0400 Diastolic blood pressure 76 mm[Hg] Irina Waddell [facility]; [facility] Work Phone: 12-14-2010 08:46-0400 Heart rate 68 /min Irina Bairon [facility]; [facility] Work Phone: 12-14-2010 08:46-0400 Respiratory rate 16 /min Irina Waddell [facility]; [facility] Work Phone: 12-14-2010 08:46-0400 Systolic blood pressure 122 mm[Hg] Irina Waddell [facility]; [facility] Work Phone: 08-03-2010 10:15-0400 Body height 154.94 cm Irina Waddell [facility]; [facility] Work Phone: 08-03-2010 10:15-0400 Body mass index (BMI) [Ratio] 35.71 kg/m2 Irina Bairon [facility]; [facility] Work Phone: 08-03-2010 10:15-0400 Body surface area Derived from formula 1.84 m2 Irina Waddell [facility]; [facility] Work Phone: 08-03-2010 10:15-0400 Body temperature 97.2 [degF] Irina Waddell [facility]; [facility] Work Phone: 08-03-2010 10:15-0400 Body weight 85.73 kg Irina Waddell [facility]; [facility] Work Phone: 08-03-2010 10:15-0400 Diastolic blood pressure 74 mm[Hg] Irina Waddell [facility]; [facility] Work Phone: 08-03-2010 10:15-0400 Heart rate 68 /min Irina Waddell [facility]; [facility] Work Phone: 08-03-2010 10:15-0400 Respiratory rate 16 /min Irina Waddell [facility]; [facility] Work Phone: 08-03-2010 10:15-0400 Systolic blood pressure 110 mm[Hg] Irina Waddell [facility]; [facility] Work Phone: 04-27-2010 13:11-0500 Body temperature 97.6 [degF] Irina Waddell [facility]; [facility] Work Phone: 04-27-2010 13:11-0500 Body weight 84.37 kg Irina Waddell [facility]; [facility] Work Phone: 04-27-2010 13:11-0500 Diastolic blood pressure 82 mm[Hg] Irina Waddell [facility]; [facility] Work Phone: 04-27-2010 13:11-0500 Heart rate 84 /min Irina Waddell [facility]; [facility] Work Phone: 04-27-2010 13:11-0500 Respiratory rate 18 /min Irina Waddell [facility]; [facility] Work Phone: 04-27-2010 13:11-0500 Systolic blood pressure 116 mm[Hg] Irina Waddell [facility]; [facility] Work Phone: 03-23-2010 08:21-0500 Body temperature 97.2 [degF] Enriqueta Gibson LPN [facility]; [facility] Work Phone: 03-23-2010 08:21-0500 Body weight 83.92 kg Enriqueta Gibson LPN [facility]; [facility] Work Phone: 03-23-2010 08:21-0500 Diastolic blood pressure 72 mm[Hg] Enriqueta Gibson LPN [facility]; [facility] Work Phone: 03-23-2010 08:21-0500 Heart rate 70 /min Enriqueta Arthur DIETZ [facility]; [facility] Work Phone: 03-23-2010 08:21-0500 Respiratory rate 16 /min Enriqueta Arthur DIET[facility]; [facility] Work Phone: 03-23-2010 08:21-0500 SaO2% (BldA) [Mass fraction] 96 % Enriqueta Arthur DIETZ [facility]; [facility] Work Phone: 03-23-2010 08:21-0500 Systolic blood pressure 118 mm[Hg] Enriqueta Arthur DIETZ [facility]; [facility] Work Phone: 10-07-2009 08:29-0400 Body temperature 97.3 [degF] Irina Waddell [facility]; [facility] Work Phone: 10-07-2009 08:29-0400 Body weight 83.92 kg Irina Waddell [facility]; [facility] Work Phone: 10-07-2009 08:29-0400 Diastolic blood pressure 82 mm[Hg] Irina Waddell [facility]; [facility] Work Phone: 10-07-2009 08:29-0400 Heart rate 60 /min Irina Waddell [facility]; [facility] Work Phone: 10-07-2009 08:29-0400 Respiratory rate 18 /min Irina Waddell [facility]; [facility] Work Phone: 10-07-2009 08:29-0400 Systolic blood pressure 124 mm[Hg] Irina Zavala [facility]; [facility] Work Phone: 06-17-2009 12:12-0400 Body temperature 98.3 [degF] Angelica Barone RN [facility]; [facility] Work Phone: 06-17-2009 12:12-0400 Body weight 83.92 kg Angelica Mast RN [facility]; [facility] Work Phone: 06-17-2009 12:12-0400 Diastolic blood pressure 78 mm[Hg] Angelica Barone RN [facility]; [facility] Work Phone: 06-17-2009 12:12-0400 Heart rate 60 /min Angelica Barone RN [facility]; [facility] Work Phone: 06-17-2009 12:12-0400 Respiratory rate 16 /min Angelica Barone RN [facility]; [facility] Work Phone: 06-17-2009 12:12-0400 Systolic blood pressure 126 mm[Hg] Angelica Barone RN [facility]; [facility] Work Phone: 03-25-2009 14:53-0500 Body temperature 97 [degF] Enriqueta Gibson LPN [facility]; [facility] Work Phone: 03-25-2009 14:53-0500 Body weight 83.46 kg Enriqueta Gibson LPN [facility]; [facility] Work Phone: 03-25-2009 14:53-0500 Diastolic blood pressure 70 mm[Hg] Enriqueta Gibson LPN [facility]; [facility] Work Phone: 03-25-2009 14:53-0500 Heart rate 68 /min Enriqueta Gibson LPN [facility]; [facility] Work Phone: 03-25-2009 14:53-0500 Respiratory rate 16 /min Enriqueta Gibson LPN [facility]; [facility] Work Phone: 03-25-2009 14:53-0500 Systolic blood pressure 102 mm[Hg] Enriqueta Gibson LPN [facility]; [facility] Work Phone: 03-18-2009 10:03-0500 Body height 0 cm Irina Waddell [facility]; [facility] Work Phone: 03-18-2009 10:03-0500 Body temperature 97.9 [degF] Irina Barillasner [facility]; [facility] Work Phone: 03-18-2009 10:03-0500 Body weight 83.46 kg Irina Waddell [facility]; [facility] Work Phone: 03-18-2009 10:03-0500 Diastolic blood pressure 62 mm[Hg] Irina Bairon [facility]; [facility] Work Phone: 03-18-2009 10:03-0500 Head Occipital-frontal circumference 0 cm Irina Bairon [facility]; [facility] Work Phone: 03-18-2009 10:03-0500 Heart rate 80 /min Irina Bairon [facility]; [facility] Work Phone: 03-18-2009 10:03-0500 Respiratory rate 18 /min Irina Bairon [facility]; [facility] Work Phone: 03-18-2009 10:03-0500 Systolic blood pressure 96 mm[Hg] Irina Osorioaura [facility]; [facility] Work Phone: 12-30-2008 14:06-0400 Body height 0 cm Sue Silva [facility]; [facility] Work Phone: 12-30-2008 14:06-0400 Body temperature 97.1 [degF] Sue Silva [facility]; [facility] Work Phone: 12-30-2008 14:06-0400 Body weight 81.76 kg Sue Silva [facility]; [facility] Work Phone: 12-30-2008 14:06-0400 Diastolic blood pressure 72 mm[Hg] Sue Silva [facility]; [facility] Work Phone: 12-30-2008 14:06-0400 Head Occipital-frontal circumference 0 cm Sue [facility]; [facility] Work Phone: 12-30-2008 14:06-0400 Heart rate 60 /min Sue Silva [facility]; [facility] Work Phone: 12-30-2008 14:06-0400 Respiratory rate 18 /min Sue [place] [facility]; [facility] Work Phone: 12-30-2008 14:06-0400 Systolic blood pressure 118 mm[Hg] Sue Silva [facility]; [facility] Work Phone: 11-22-2008 10:34-0400 Body height 0 cm Irina Waddell [facility]; [facility] Work Phone: 11-22-2008 10:34-0400 Body temperature 97.4 [degF] Irina Waddell [facility]; [facility] Work Phone: 11-22-2008 10:34-0400 Body weight 82.56 kg Irina Waddell [facility]; [facility] Work Phone: 11-22-2008 10:34-0400 Diastolic blood pressure 72 mm[Hg] Irina Waddell [facility]; [facility] Work Phone: 11-22-2008 10:34-0400 Head Occipital-frontal circumference 0 cm Irina Waddell [facility]; [facility] Work Phone: 11-22-2008 10:34-0400 Heart rate 60 /min Irina Waddell [facility]; [facility] Work Phone: 11-22-2008 10:34-0400 Respiratory rate 18 /min Irina Waddell [facility]; [facility] Work Phone: 11-22-2008 10:34-0400 Systolic blood pressure 122 mm[Hg] Irina Waddell [facility]; [facility] Work Phone: 08-20-2008 10:43-0400 Body height 157.48 cm Irina Waddell [facility]; [facility] Work Phone: 08-20-2008 10:43-0400 Body mass index (BMI) [Ratio] 34.02 kg/m2 Irina Waddell [facility]; [facility] Work Phone: 08-20-2008 10:43-0400 Body surface area Derived from formula 1.85 m2 Irina Waddell [facility]; [facility] Work Phone: 08-20-2008 10:43-0400 Body temperature 97 [degF] Irina Waddell [facility]; [facility] Work Phone: 08-20-2008 10:43-0400 Body weight 84.37 kg Irina Waddell [facility]; [facility] Work Phone: 08-20-2008 10:43-0400 Diastolic blood pressure 80 mm[Hg] Irina Waddell [facility]; [facility] Work Phone: 08-20-2008 10:43-0400 Head Occipital-frontal circumference 0 cm Irina Waddell [facility]; [facility] Work Phone: 08-20-2008 10:43-0400 Heart rate 64 /min Irina Waddell [facility]; [facility] Work Phone: 08-20-2008 10:43-0400 Respiratory rate 16 /min Irina Waddell [facility]; [facility] Work Phone: 08-20-2008 10:43-0400 Systolic blood pressure 116 mm[Hg] Irina Waddell [facility]; [facility] Work Phone: 07-31-2008 10:13-0400 Body height 0 cm Irina Waddell [facility]; [facility] Work Phone: 07-31-2008 10:13-0400 Body temperature 98.2 [degF] Irina Waddell [facility]; [facility] Work Phone: 07-31-2008 10:13-0400 Body weight 84.37 kg Irina Waddell [facility]; [facility] Work Phone: 07-31-2008 10:13-0400 Diastolic blood pressure 80 mm[Hg] Irina Waddell [facility]; [facility] Work Phone: 07-31-2008 10:13-0400 Head Occipital-frontal circumference 0 cm Irina Waddell [facility]; [facility] Work Phone: 07-31-2008 10:13-0400 Heart rate 64 /min Irina Waddell [facility]; [facility] Work Phone: 07-31-2008 10:13-0400 Respiratory rate 16 /min Irina Waddell [facility]; [facility] Work Phone: 07-31-2008 10:13-0400 Systolic blood pressure 106 mm[Hg] Irina Waddell [facility]; [facility] Work Phone: 07-17-2008 09:56-0400 Body height 0 cm Irina Waddell [facility]; [facility] Work Phone: 07-17-2008 09:56-0400 Body temperature 97.9 [degF] Irina Waddell [facility]; [facility] Work Phone: 07-17-2008 09:56-0400 Body weight 86.18 kg Irina Waddell [facility]; [facility] Work Phone: 07-17-2008 09:56-0400 Diastolic blood pressure 100 mm[Hg] Irina Waddell [facility]; [facility] Work Phone: 07-17-2008 09:56-0400 Head Occipital-frontal circumference 0 cm Irina Waddell [facility]; [facility] Work Phone: 07-17-2008 09:56-0400 Heart rate 58 /min Irina Waddell [facility]; [facility] Work Phone: 07-17-2008 09:56-0400 Respiratory rate 16 /min Irina Waddell [facility]; [facility] Work Phone: 07-17-2008 09:56-0400 Systolic blood pressure 140 mm[Hg] Irina Waddell [facility]; [facility] Work Phone: 05-09-2008 08:19-0500 Body height 0 cm Irina Waddell [facility]; [facility] Work Phone: 05-09-2008 08:19-0500 Body temperature 96.3 [degF] Irina Waddell [facility]; [facility] Work Phone: 05-09-2008 08:19-0500 Body weight 86.64 kg Irina Waddell [facility]; [facility] Work Phone: 05-09-2008 08:19-0500 Diastolic blood pressure 90 mm[Hg] Irina Waddell [facility]; [facility] Work Phone: 05-09-2008 08:19-0500 Head Occipital-frontal circumference 0 cm Irina Waddell [facility]; [facility] Work Phone: 05-09-2008 08:19-0500 Heart rate 64 /min Irina Waddell [facility]; [facility] Work Phone: 05-09-2008 08:19-0500 Respiratory rate 16 /min Irina Waddell [facility]; [facility] Work Phone: 05-09-2008 08:19-0500 Systolic blood pressure 128 mm[Hg] Irina Waddell [facility]; [facility] Work Phone: 04-29-2008 15:05-0500 Body height 0 cm Irina Waddell [facility]; [facility] Work Phone: 04-29-2008 15:05-0500 Body temperature 98 [degF] Irina Waddell [facility]; [facility] Work Phone: 04-29-2008 15:05-0500 Body weight 0 kg Irina Waddell [facility]; [facility] Work Phone: 04-29-2008 15:05-0500 Diastolic blood pressure 90 mm[Hg] Irina Waddell [facility]; [facility] Work Phone: 04-29-2008 15:05-0500 Head Occipital-frontal circumference 0 cm Irina Waddell [facility]; [facility] Work Phone: 04-29-2008 15:05-0500 Heart rate 84 /min Irina Waddell [facility]; [facility] Work Phone: 04-29-2008 15:05-0500 Respiratory rate 16 /min Irina Waddell [facility]; [facility] Work Phone: 04-29-2008 15:05-0500 Systolic blood pressure 134 mm[Hg] Irina Waddell [facility]; [facility] Work Phone: 02-19-2008 10:35-0500 Body height 0 cm Irina Waddell [facility]; [facility] Work Phone: 02-19-2008 10:35-0500 Body temperature 96.4 [degF] Irina Waddell [facility]; [facility] Work Phone: 02-19-2008 10:35-0500 Body weight 0 kg Irina Waddell [facility]; [facility] Work Phone: 02-19-2008 10:35-0500 Diastolic blood pressure 68 mm[Hg] Irina Waddell [facility]; [facility] Work Phone: 02-19-2008 10:35-0500 Head Occipital-frontal circumference 0 cm Irina Waddell [facility]; [facility] Work Phone: 02-19-2008 10:35-0500 Heart rate 60 /min Irina Waddell [facility]; [facility] Work Phone: 02-19-2008 10:35-0500 Respiratory rate 18 /min Irina Waddell [facility]; [facility] Work Phone: 02-19-2008 10:35-0500 Systolic blood pressure 116 mm[Hg] Irina Waddell [facility]; [facility] Work Phone: 01-29-2008 11:23-0500 Body height 0 cm Irina Waddell [facility]; [facility] Work Phone: 01-29-2008 11:23-0500 Body temperature 97.9 [degF] Irina Waddell [facility]; [facility] Work Phone: 01-29-2008 11:23-0500 Body weight 85.73 kg Irina Waddell [facility]; [facility] Work Phone: 01-29-2008 11:23-0500 Diastolic blood pressure 78 mm[Hg] Irina Waddell [facility]; [facility] Work Phone: 01-29-2008 11:23-0500 Head Occipital-frontal circumference 0 cm Irina Waddell [facility]; [facility] Work Phone: 01-29-2008 11:23-0500 Heart rate 72 /min Irina Waddell [facility]; [facility] Work Phone: 01-29-2008 11:23-0500 Respiratory rate 16 /min Irina Waddell [facility]; [facility] Work Phone: 01-29-2008 11:23-0500 Systolic blood pressure 120 mm[Hg] Irina Waddell [facility]; [facility] Work Phone: 05-30-2007 10:19-0500 Body height 0 cm Irina Waddell [facility]; [facility] Work Phone: 05-30-2007 10:19-0500 Body temperature 98.4 [degF] Irina Waddell [facility]; [facility] Work Phone: 05-30-2007 10:19-0500 Body weight 83.46 kg Irina Waddell [facility]; [facility] Work Phone: 05-30-2007 10:19-0500 Diastolic blood pressure 74 mm[Hg] Irina Waddell [facility]; [facility] Work Phone: 05-30-2007 10:19-0500 Head Occipital-frontal circumference 0 cm Irina Zavala [facility]; [facility] Work Phone: 05-30-2007 10:19-0500 Heart rate 76 /min Irina Waddell [facility]; [facility] Work Phone: 05-30-2007 10:19-0500 Respiratory rate 16 /min Irina Waddell [facility]; [facility] Work Phone: 05-30-2007 10:19-0500 Systolic blood pressure 108 mm[Hg] Irina Waddell [facility]; [facility] Work Phone: 04-17-2007 14:22-0500 Body height 0 cm Irina Waddell [facility]; [facility] Work Phone: 04-17-2007 14:22-0500 Body temperature 98 [degF] Irina Waddell [facility]; [facility] Work Phone: 04-17-2007 14:22-0500 Body weight 81.65 kg Irina Waddell [facility]; [facility] Work Phone: 04-17-2007 14:22-0500 Diastolic blood pressure 62 mm[Hg] Irina Waddell [facility]; [facility] Work Phone: 04-17-2007 14:22-0500 Head Occipital-frontal circumference 0 cm Irina Waddell [facility]; [facility] Work Phone: 04-17-2007 14:22-0500 Heart rate 72 /min Irina Waddell [facility]; [facility] Work Phone: 04-17-2007 14:22-0500 Respiratory rate 16 /min Irina Waddell [facility]; [facility] Work Phone: 04-17-2007 14:22-0500 Systolic blood pressure 100 mm[Hg] Irina Waddell [facility]; [facility] Work Phone: 01-30-2007 14:28-0500 Body height 0 cm Angelica Barone RN [facility]; [facility] Work Phone: 01-30-2007 14:28-0500 Body temperature 98.6 [degF] Angelica Barone RN [facility]; [facility] Work Phone: 01-30-2007 14:28-0500 Body weight 81.19 kg Angelica Barone RN [facility]; [facility] Work Phone: 01-30-2007 14:28-0500 Diastolic blood pressure 68 mm[Hg] Angelica Barone RN [facility]; [facility] Work Phone: 01-30-2007 14:28-0500 Head Occipital-frontal circumference 0 cm Angelica Barone RN [facility]; [facility] Work Phone: 01-30-2007 14:28-0500 Heart rate 60 /min Angelica Barone RN [facility]; [facility] Work Phone: 01-30-2007 14:28-0500 Respiratory rate 16 /min Angelica Barone RN [facility]; [facility] Work Phone: 01-30-2007 14:28-0500 Systolic blood pressure 112 mm[Hg] Angelica Barone RN [facility]; [facility] Work Phone: 12-20-2006 08:13-0400 Body height 154.94 cm Enriqueta Gibson LPN [facility]; [facility] Work Phone: 12-20-2006 08:13-0400 Body mass index (BMI) [Ratio] 33.54 kg/m2 Enriqueta Gibson LPN [facility]; [facility] Work Phone: 12-20-2006 08:13-0400 Body surface area Derived from formula 1.8 m2 Enriqueta Gibson LPN [facility]; [facility] Work Phone: 12-20-2006 08:13-0400 Body temperature 98.5 [degF] Enriqueta Gibson LPN [facility]; [facility] Work Phone: 12-20-2006 08:13-0400 Body weight 80.51 kg Enriqueta Gibson J LUIS [facility]; [facility] Work Phone: 12-20-2006 08:13-0400 Diastolic blood pressure 60 mm[Hg] Enriqueta Arthur DIETZ [facility]; [facility] Work Phone: 12-20-2006 08:13-0400 Head Occipital-frontal circumference 0 cm Enriqueta Gibson LPN [facility]; [facility] Work Phone: 12-20-2006 08:13-0400 Heart rate 70 /min Enriqueta Arthur DIETZ [facility]; [facility] Work Phone: 12-20-2006 08:13-0400 Respiratory rate 16 /min Enriqueta Arthur DIETZ [facility]; [facility] Work Phone: 12-20-2006 08:13-0400 Systolic blood pressure 108 mm[Hg] Enriqueta Arthur DIETZ [facility]; [facility] Work Phone: 05-30-2006 15:14-0500 Body height 0 cm José Miguel Bryson MD Work Phone: [facility]; [facility] Work Phone: 05-30-2006 15:14-0500 Body temperature 97.4 [degF] José Miguel Bryson MD Work Phone: [facility]; [facility] Work Phone: 05-30-2006 15:14-0500 Body weight 0 kg José Miguel Bryson MD Work Phone: [facility]; [facility] Work Phone: 05-30-2006 15:14-0500 Diastolic blood pressure 60 mm[Hg] José Miguel Bryson MD Work Phone: [facility]; [facility] Work Phone: 05-30-2006 15:14-0500 Head Occipital-frontal circumference 0 cm José Miguel Bryson MD Work Phone: [facility]; [facility] Work Phone: 05-30-2006 15:14-0500 Heart rate 68 /min José Miguel Bryson MD Work Phone: [facility]; [facility] Work Phone: 05-30-2006 15:14-0500 Respiratory rate 16 /min José Miguel Bryson MD Work Phone: [facility]; [facility] Work Phone: 05-30-2006 15:14-0500 Systolic blood pressure 110 mm[Hg] José Miguel Bryson MD Work Phone: [facility]; [facility] Work Phone: 05-24-2006 13:34-0500 Body height 154.94 cm Irina [facility]; [facility] Work Phone: 05-24-2006 13:34-0500 Body mass index (BMI) [Ratio] 33.54 kg/m2 Irina Waddell [facility]; [facility] Work Phone: 05-24-2006 13:34-0500 Body surface area Derived from formula 1.8 m2 Irina Waddell [facility]; [facility] Work Phone: 05-24-2006 13:34-0500 Body temperature 98.5 [degF] Irina Waddell [facility]; [facility] Work Phone: 05-24-2006 13:34-0500 Body weight 80.51 kg Irina Waddell [facility]; [facility] Work Phone: 05-24-2006 13:34-0500 Diastolic blood pressure 72 mm[Hg] Irina Waddell [facility]; [facility] Work Phone: 05-24-2006 13:34-0500 Head Occipital-frontal circumference 0 cm Irina Waddell [facility]; [facility] Work Phone: 05-24-2006 13:34-0500 Heart rate 72 /min Irina Zav[facility]; [facility] Work Phone: 05-24-2006 13:34-0500 Respiratory rate 16 /min Irina Bairon [facility]; [facility] Work Phone: 05-24-2006 13:34-0500 Systolic blood pressure 98 mm[Hg] Irina Bairon [facility]; [facility] Work Phone: 03-18-2006 11:26-0500 Body height 0 cm Sheba Cook [facility]; [facility] Work Phone: 03-18-2006 11:26-0500 Body temperature 97.8 [degF] Sheba Cook [facility]; [facility] Work Phone: 03-18-2006 11:26-0500 Body weight 0 kg Shebaeddi Cook [facility]; [facility] Work Phone: 03-18-2006 11:26-0500 Diastolic blood pressure 82 mm[Hg] Sheba Joey [facility]; [facility] Work Phone: 03-18-2006 11:26-0500 Head Occipital-frontal circumference 0 cm Sheba Cook [facility]; [facility] Work Phone: 03-18-2006 11:26-0500 Heart rate 16 /min Shebaeddi Cook [facility]; [facility] Work Phone: 03-18-2006 11:26-0500 Respiratory rate 68 /min Shebaeddi Cook [facility]; [facility] Work Phone: 03-18-2006 11:26-0500 Systolic blood pressure 130 mm[Hg] Shebaeddi Cook [facility]; [facility] Work Phone: 03-17-2006 09:29-0500 Body height 0 cm Shebaeddi Cook [facility]; [facility] Work Phone: 03-17-2006 09:29-0500 Body temperature 98.1 [degF] Shebaeddi Cook [facility]; [facility] Work Phone: 03-17-2006 09:29-0500 Body weight 83.01 kg Shebaeddi Cook [facility]; [facility] Work Phone: 03-17-2006 09:29-0500 Diastolic blood pressure 78 mm[Hg] Sheba Cook [facility]; [facility] Work Phone: 03-17-2006 09:29-0500 Head Occipital-frontal circumference 0 cm Sheba Cook [facility]; [facility] Work Phone: 03-17-2006 09:29-0500 Heart rate 64 /min Sheba Cook [facility]; [facility] Work Phone: 03-17-2006 09:29-0500 Respiratory rate 16 /min Sheba Cook [facility]; [facility] Work Phone: 03-17-2006 09:29-0500 Systolic blood pressure 108 mm[Hg] Shebaeddi Cook [facility]; [facility] Work Phone: 12-14-2005 13:25-0400 Body height 0 cm Enriqueta Gibson LPN [facility]; [facility] Work Phone: 12-14-2005 13:25-0400 Body temperature 98 [degF] Enriqueta Gibson LPN [facility]; [facility] Work Phone: 12-14-2005 13:25-0400 Body weight 83.12 kg Enriqueta Gibson LPN [facility]; [facility] Work Phone: 12-14-2005 13:25-0400 Diastolic blood pressure 80 mm[Hg] Enriqueta Gibson LPN [facility]; [facility] Work Phone: 12-14-2005 13:25-0400 Head Occipital-frontal circumference 0 cm Enriqueta Gibson LPN [facility]; [facility] Work Phone: 12-14-2005 13:25-0400 Heart rate 81 /min Enriqueta Gibson LPN [facility]; [facility] Work Phone: 12-14-2005 13:25-0400 Respiratory rate 16 /min Enriqueta Gibson LPN [facility]; [facility] Work Phone: 12-14-2005 13:02-0890 Systolic blood pressure 110 mm[Hg] Enirqueta Gibson LPN [facility]; [facility] Work Phone: Encounters Encounter Date Encounter Type Care Provider Facility Start: 10-25-2022 End: 10-25-2022 José Miguel Bryson MD Work Phone: [facility] Start: 10-22-2022 End: 10-22-2022 ambulatory VIRGILIO ROJAS Facility:[facility] Start: 10-22-2022 End: 10-22-2022 Patient encounter procedure Farzana Leora [employer] Work Phone: [facility] Procedures Date Procedure Procedure Detail Performing Clinician Start: 10-08-2020 Adult depression screening assessment Maria Dolores Garcia PA-C Work Phone: Start: 02-09-2017 End: 02-09-2017 Urnls dip stick/tablet rgnt non-auto w/o micrscp Roberto LOPEZ Work Phone: Start: 07-12-2016 End: 07-30-2016 Pulmonary Function Test - complete Michelle Trejo [employer] Work Phone: Start: 07-12-2016 End: 07-30-2016 Pulmonary Function Test - complete Michelle Trejo [employer] Work Phone: Start: 07-01-2016 End: 07-01-2016 Urnls dip stick/tablet rgnt non-auto w/o micrscp Roberto LOPEZ Work Phone: Start: 07-01-2016 End: 07-01-2016 Urinalysis nonauto w/o scope Roberto LOPEZ Work Phone: Start: 11-12-2015 End: 11-12-2015 Ecg routine ecg w/least 12 lds w/i&r [MEASUREMENTS ANALYSIS] Date of Test: 11/12/2015 10:42:50; Heart Rate: 42; WV Interval: 170; QRS: 100; QT Interval: 478; Corrected QT Interval (QTc): 447; P Wave [place]: 33; QRS Wave [place]: -9; T Wave [place]: -1; Blood Pressure: 106/74 [ECG DIAGNOSTIC STATEMENTS] Date of Test: 11/12/2015 10:42:50; Summary: Marked sinus Bradycardia BORDERLINE RHYTHM Sugar Hebert Work Phone: Start: 09-25-2015 End: 09-26-2015 Procedure Note: See Note; NOTES: [facility] Imaging Services [address] [place] [address] Verdana 4d Bilat Scrn Digital AND CAD MR#: [id number] Acct: [id number] Name: SUGAR COONEY Rep #: [id number] : 1940 F 75 From: Kait Osman MD PCP: Catherine Magana DO Status: REG CLI Study: Bilat Scrn Digital AND CAD Date of Exam: 09/25/15 Exam# [id number] Ordering Dr: Catherine Magana DO MAMMOGRAPHY - BILATERAL SCREENING REASON FOR EXAM: Female, 75 years old. Routine annual screening examination. PERTINENT HISTORY: BILAT ASPIRATIONS 14+ YRS AGO, LEFT MOLE REMOVAL 5+ YRS AGO, NO PROBLEMS, NO MOLES, FAM HX CA IN MATEWRNAL GRANDMA AGE 58, MATERNAL COUSIN AGE 60, AND A PATERNAL AUNT AGE 60 TECHNIQUE: Digital bilateral breast tomosynthesis (3-D mammographic acquisition) in the CC and MLO projections. Synthesized 2-D images (C-View reconstruction from tomosynthesis acquisition) providing bilateral breast CC and MLO views. Mediolateral oblique (MLO) and craniocaudad (CC) views of both breasts were obtained. CAD: Full Field Digital Mammography with Computer Added Detection was performed. COMPARISON: MG - Breast Bilateral - 15:32 FINDINGS: Breast Density: C - Heterogeneously dense, which may obscure small masses. There are no dominant masses or suspicious calcifications. No other significant abnormalities are identified. IMPRESSION: Stable bilateral screening mammogram. Yearly follow-up mammogram recommended. (A) ASSESSMENT CATEGORY: BIRADS Category 2: Benign. A letter regarding these results will be sent to the patient by the facility within 30 days. Approximately 10% of breast cancers are not detected by mammography. A normal mammogram should not delay biopsy of a clinically suspicious abnormality. [id number] Electronically Signed: Kait Osman MD at 17:26 EDT Tel , Service support [phone], CC: Catherine Magana DO Feed Project Engineer: Signed Catherine Magana DO Work Phone: Start: 08-07-2015 End: 07-30-2016 Follow Up Appt 1 year Michelle Trejo [employer] Work Phone: Start: 08-07-2015 End: 07-30-2016 Follow Up Appt 1 year Michelle Trejo [employer] Work Phone: Start: 07-20-2015 End: 07-20-2015 Procedure Note: See Note; NOTES: [facility] Pulmonary Services/Neurology [address] [place] [address] Pulmonary Function Test (Comp) MR#: [id number] Acct: [id number] Name: SUGAR COONEY Rep #: [id number] : 1940 75 From: Marcel Howell MD Referring Dr: Marcel Howell MD Status: REG I Ordering Dr: Marcel Howell MD Date: 07/07/15 Location: [facility] Sex: F C DATE OF SERVICE: 07/07/2015 DATE OF SERVICE: July 07, 2015 BRIEF HISTORY OF PRESENT ILLNESS: The patient is a 75-year-old female, currently under the care of myself, who presents for a complete pulmonary function test secondary to a diagnosis of dyspnea. The respiratory therapist reported good patient effort and reproducible results. INTERPRETATION: Forced expiration spirometry demonstrates no large airways obstructive ventilatory defect. There is no significant response to bronchodilators noted. Spirograms are of good quality and plateau normally. The respiratory flow volume loop appears normal. Lung volumes by body plethysmography show a total lung capacity at the lower limit of normal at 3.66 L, 87% of predicted. Remaining lung volumes are at the lower limit of normal. Diffusion capacity by single breath carbon monoxide is preserved at 88% of predicted. Airway resistance is normal. This study was compared to a previous study completed on July 30, 2014, which shows no significant change using ATS criteria. IMPRESSION: Grossly normal pulmonary function test with no significant change since 2014. MD Bobo ZEPEDA C: Primary Care Physician . T: NTS JOB: [id number] 07/20/15 0844 <Electronically signed by Marcel Howell MD> Date Marcel Howell MD CC: Marcel Howell MD; Catherine Magana DO Date Dictated: 07/19/15 1000 Date Transcribed: 07/19/15 1000 Feed Project Engineer: Signed Marcel Howell Work Phone: Start: 11-12-2014 End: 11-12-2014 Procedure Note: See Note; NOTES: [facility] [address] [place] [address]. [address] [place] [address] Fax REHABILITATION SERVICES DISCHARGE SUMMARY MR#: [id number] Acct: [id number] Name: SUGAR COONEY Rep #: [id number] : 1940 74 From: Toni Danielson Referring : Catherine Magana DO Status: PRE RCR Eval Date: Discharge Date: DATE OF SERVICE: REFERRING PHYSICIAN: Dr. Catherine Magana This patient by the name of Sugar oConey was born on 1940, was referred to physical therapy with diagnosis of scoliosis, back and thoracic pain. The patient received a total number of couple of physical therapy sessions. The patient only wanted to be seen for a couple of sessions for physical therapy. We provided the patient with home exercise program, as well as strengthening. The patient was d/c to [facility] . The patient planned to return to the doctor. We did perform back Oswestry, it was only 12% and using G8981 was the current status and her discharge status was G8982, , but after 2 visits the patient was discharged from our clinic. She will be following up with you as needed. Once again, thank you for this referral. Toni Danielson, PT T: NTS JOB: [id number] <Electronically signed by Toni Danielson > 11/12/14 1107 CC: Signed José Miguel Bryson MD Work Phone: Start: 10-01-2014 End: 10-01-2014 Procedure Note: See Note; NOTES: [facility] [address] [place] [address] Fax REHABILITATION SERVICES INITIAL EVALUATION MR#: [id number] Acct: [id number] Name: SUGAR COONEY Rep #: [id number] : 1940 74 From: Toni Danielson Referring Dr.: Catherine Magana DO Status: REG R Insurance: [employer] Eval Date: DATE OF SERVICE: REFERRING PHYSICIAN: Dr. Catherine Magana. SUBJECTIVE: This patient by the name of Sugar Cooney who was born on 1940, was referred to physical therapy with a diagnoses of neck pain, thoracic region disk disease, scoliosis. This patient states that she has had intermittent type of thoracic neck pain or scapular pain for 10-15 years, which the symptoms are sporadic and intermittent. Today, she has no pain. She does see a chiropractor. She also reports these symptoms become more intense when she is sitting, doing any kind of activities, sitting, driving, etc. Typically, she is able to sleep throughout the night. She does not really describe any nausea or tingling, etc. She reports that her goals are to have no more symptoms, learn exercises to manage these symptoms. She is active in water physical therapy. PAST MEDICAL HISTORY: Hypertension. SOCIAL HISTORY: She is . VOCATION: She is retired. OBJECTIVE: POSTURE: The patient sits with rounded shoulders, head forward. PALPATION: Unremarkable. NEUROLOGICAL: Unremarkable. Reflexes at C5, C6, C7 is within normal limits. Myotomes intact in upper extremities. Range of motion of upper extremities within normal limits. Manual muscle testing upper extremities, biceps, triceps 4/5, shoulder, anterior deltoid 4-/5, lateral deltoid 4-/5. POSTURE: The patient does have a mild thoracic kyphosis. X-ray did reveal that she had some scoliosis, degenerative disk disease as well as thoracic kyphosis. RANGE OF MOTION: Cervical range of motion, flexion within functional limits, rotation and lateral flexion minimal loss, extension minimal loss, retraction within functional limits. Protraction within functional limits. Repeated motion: Flexion, no effect. Extension, no effect. Side bend either direction, no effect. Rotation, no effect either direction. Thoracic range of motion minimal loss, forward flexion, extension, rotation, forward flexion, no effect. Extension, no effect. Today, these symptoms were not increased or produced with repeated motion. SPECIAL TESTS: Negative cervical spine compression distraction. Quadrant test is negative. Palpation unremarkable. Negative ANR. ASSESSMENT: This patient has episodes of right scapular pain. She did have x-rays showed some scoliosis as well as a mild thoracic kyphosis with a slight curvature. The patient will benefit from home physical therapy with followup 1 visit, the patient agreed to plan of care. PROBLEM LIST: 1. Decreased home exercise program. 2. Increased pain of right scapula. GOALS: 1. Provide the patient with a home exercise program for postural exercises. 2. The patient will be independent with posture for ADLs. 3. Decrease cervical pain, spine pain around the scapula, cervical, thoracic region by at least 80% or greater all times. PLAN: Plan of care was reviewed with the patient. We discussed with the patient extensively mechanism of pain. We discussed with the patient basic anatomy of the lumbar spine. We discussed with the patient benefits of physical therapy. We did perform the back Oswestry disability score of 12% and using changing and maintaining body position, G8981. Current status is CI 1-19 percent and her goal status is G8982, CH 0%. Today, we provided the patient with a home exercise program focusing on posture, cervical retraction, corner stretch, mid rows, posterior deltoid, bilateral external rotation and long arm extensions with blue band, 2 sets of 15 repetitions with handout provided. I will have a followup visit for home exercise program, posture education, posture exercises and strengthening. Toni Danielson, PT T: GALINDO JOB: [id number] <Electronically signed by Toni Danielson > 10/01/14 1001 CC: Signed For Medicare only, by signing this I certify the plan of care. __ Physicians Signature Date José Miguel Bryson MD Work Phone: Start: 09-20-2014 End: 09-20-2014 Procedure Note: See Note; NOTES: [facility] Imaging Services [address] [place] [address] Ultrasound Report MR#: [id number] Acct: [id number] Name: SUGAR COONEY Rep #: [id number] : 1940 F 74 From: Raul Brandt MD PCP: Catherine Magana DO Status: REG CLI Study: Breast Limited Unilateral Date of Exam: 09/20/14 Exam# [id number] Ordering Dr: Catherine Magana DO STUDY: ULTRASOUND BREAST - LEFT REASON FOR EXAM: Female, 74 years old. Abnormal screening mammogram. TECHNIQUE: Axial and longitudinal images of the LEFT breast were performed with a high resolution ultrasound transducer. COMPARISON: Comparison is made with prior mammogram dated September 19, 2014. FINDINGS: LEFT Breast: Several small cysts are seen in the retroareolar region of the breast. The largest measures 1.2 cm x 1.1 cm x 0.5 cm. This corresponds to the mammographic findings. IMPRESSION: Several small cysts are seen in the retroareolar region of the left breast. ASSESSMENT CATEGORY: BIRADS Category 2: Benign. A letter regarding these results will be sent to the patient by the facility within 30 days. Electronically Signed: Raul Brandt MD at 11:21 EDT Tel [phone], Service support [phone], CC: Catherine Magana DO Feed Project Engineer: Signed Catherine Magana DO Work Phone: Start: 09-19-2014 End: 09-19-2014 Procedure Note: See Note; NOTES: [facility] Imaging Services [address] [place] [address] Breast Imaging Report MR#: [id number] Acct: [id number] Name: SUGAR COONEY Rep #: [id number] : 1940 F 74 From: Raul Brandt MD PCP: Catherine Magana DO Status: REG CLI Study: Estella Carrera Digital AND CAD Date of Exam: 09/19/14 Exam# [id number] Ordering Dr: Catherine Magana DO MAMMOGRAPHY - BILATERAL SCREENING REASON FOR EXAM: Female, 74 years old. Routine annual screening examination. PERTINENT HISTORY: Grandmother with breast cancer. TECHNIQUE: Digital examination. Mediolateral oblique (MLO) and craniocaudad (CC) views of both breasts were obtained. CAD: CAD was performed on this study. COMPARISON: Comparison is made with prior study dated July 23, 2013 and July 18, 2012. FINDINGS: Breast Composition: There are scattered areas of fibroglandular density. There now is evidence of a 1.1 cm well-defined nodule in the inferior retroareolar region of the left breast. Correlation with ultrasound is recommended. No other significant abnormalities are identified. IMPRESSION: New nodule in the inferior retroareolar region of the left breast as described. Correlation with ultrasound is recommended. ASSESSMENT CATEGORY: BIRADS Category 0: Incomplete. Need additional imaging evaluation. A letter regarding these results will be sent to the patient by the facility within 30 days. Approximately 10% of breast cancers are not detected by mammography. A normal mammogram should not delay biopsy of a clinically suspicious abnormality. Electronically Signed: Raul Brandt MD at 16:14 EDT Tel [phone], Service support [phone], CC: Catherine Magana DO Feed Project Engineer: Signed Catherine Magana DO Work Phone: Start: 09-19-2014 End: 09-20-2014 Procedure Note: See Note; NOTES: [facility] Imaging Services [address] [place] [address] Bone Density Report MR#: [id number] Acct: [id number] Name: SUGAR COONEY Rep #: [id number] : 1940 F 74 From: Raul Brandt MD PCP: Catherine Magana DO Status: REG CLI Study: Dexa Bone Density Study () Date of Exam: 09/19/14 Exam# [id number] Ordering Dr: Catherine Magana DO STUDY: DUAL ENERGY X-RAY ABSORPTIOMETRY / DXA REASON FOR EXAM: Female, 74 years old. The patient is postmenopausal. Loss of height. TECHNIQUE: Bone Mineral Density (BMD) measurements of lumbar spine and bilateral hips were obtained. COMPARISON: Comparison is made with prior study dated July 18, 2012 FINDINGS: Lumbar Spine (L1-L4): g/cm2 (0.875) / T-score (-2.7) / Z-score (-1.0) Findings are suggestive of osteoporosis with a moderate fracture risk. Left Femur Total: g/cm2 (0.962) / T-score (-0.4) / Z-score (1.2) Left Femoral Neck: g/cm2 (0.950) / T-score (-0.6) / Z-score (1.2) Right Femur Total: g/cm2 (0.980) / T-score (-0.2) / Z-score (1.4) Right Femoral Neck: g/cm2 (0.965) / T-score (-0.5) / Z-score (1.3) The T-Scores on the most recent prior examination were: Lumbar Spine (L1-L4): There has been no change of bone density since the previous examination. Left Femur Total: which represents a worsening of 0.5%. Right Femur Total: which represents a worsening of 3.1%. IMPRESSION: The patient is considered osteoporotic at the level of the lumbar spine as outlined below according to World Derek Organization (WHO) criteria with a moderate fracture risk. There has been worsening of bone density since the previous examination. Reference Information: The T-score is the number of standard deviations above or below the standard which is normal for young adults at their peak bone mineral density. The World Health Organization (WHO) interprets the T-scores as follows: Above -1 Normal bone density Between -1 and -2.5 Osteopenia Equal to / or below -2.5 Osteoporosis As a practical clinical guideline, osteopenia may be graded as follows: Mild -1 through -1.5 Moderate -1.6 through -2.0 Severe -2.1 through -2.4 The Z-score is the number of standard deviations above or below age-matched controls. A Z-score of less than -1.5 would be considered abnormal. References: 1. NIH Osteoporosis and Related Bone Diseases http://www.osteo.org 2. International Society for Clinical Densitometry http://www.iscd.org 3. National Osteoporosis Foundation http://www.nof.org Electronically Signed: Raul Brandt MD at 15:50 EDT Tel [phone], Service support [phone], CC: Catherine Magana DO Feed Project Engineer: Signed Catherine Magana DO Work Phone: Start: 09-11-2014 End: 09-11-2014 Procedure Note: See Note; NOTES: [facility] Imaging Services [address] [place] [address] Radiology Report MR#: [id number] Acct: [id number] Name: SUGAR COONEY Rep #: [id number] : 1940 F 74 From: Jana Mcclelland MD PCP: Catherine Magana DO Status: REG CLI Study: Thoracic Spine 3 Views Date of Exam: 09/11/14 Exam# [id number] Ordering Dr: Catherine Magana DO STUDY: X-RAY - THORACIC SPINE REASON FOR EXAM: Female, 74 years old. Pain TECHNIQUE: 3 view(s) of the thoracic spine were obtained. COMPARISON: None. FINDINGS: Normal kyphosis of the thoracic spine. There is mild dextro scoliosis. There is multilevel endplate spondylosis of the thoracic vertebrae. There is multilevel disc space narrowing of the thoracic spine. The soft tissue structures are unremarkable. IMPRESSION: Degenerative disease throughout thoracic spine. No acute fracture. Electronically Signed: Joseph Mcclelland MD at 23:38 EDT , Service support [phone], RAD/Thoracic Spine 3 Views IMPRESSION: Degenerative disease throughout thoracic spine. No acute fracture. Electronically Signed: Joseph Mcclelland MD at 23:38 EDT , Service support [phone], CC: Catherine Magana DO Feed Project Engineer: Signed Catherine Magana DO Work Phone: Start: 08-29-2014 End: 08-29-2014 Procedure Note: See Note; NOTES: [facility] Pulmonary Services/Neurology [address] [place] [address] MR#: [id number] Acct: [id number] Name: SUGAR COONEY Rep #: [id number] : 1940 74 From: Marcel Howell MD Referring Dr: Marcel Howell MD Date: Ordering Dr: Sex: F C Location: [facility] 6 Minute Walk Test - 6 Minute Walk Test 6 Minute Walk Test: 6 Minute Walk Test PSN 6 Minute Walk Test Start: 08/01/14 11:26 Freq: Status: Active Document 08/01/14 11:26 FR (Rec: 08/01/14 11:29 FR [id number]) 6 Minute Walk Test Date Performed 08/01/14 Time Performed 11:00 Height 1.63 m Weight: 87.[address]: Marcel Howell Oxygen Delivery Method Room Air Assistive Device Used None Post-test Pulse Ox 95 Pulse Rate (beats/min) 66 Dyspnea Balaji Scale (0-10) 0 Exertion Balaji Scale (6-20) 6 6th minute Pulse Ox 94 Pulse Rate (beats/min) 96 Dyspnea Balaji Scale (0-10) 3 Exertion Balaji Scale (6-20) 9 5th minute Pulse Ox 93 Pulse Rate (beats/min) 95 Dyspnea Balaji Scale (0-10) 3 Exertion Balaji Scale (6-20) 9 4th minute Pulse Ox 91 Pulse Rate (beats/min) 96 Dyspnea Balaji Scale (0-10) 3 Exertion Balaji Scale (6-20) 9 3rd minute Pulse Ox 93 Pulse Rate (beats/min) 97 Dyspnea Balaji Scale (0-10) 3 Exertion Balaji Scale (6-20) 9 2nd minute Pulse Ox 93 Pulse Rate (beats/min) 94 Dyspnea Balaji Scale (0-10) 2 Exertion Balaji Scale (6-20) 9 1st minute Pulse Ox 93 Pulse Rate (beats/min) 83 Dyspnea Balaji Scale (0-10) 2 Exertion Balaji Scale (6-20) 8 Pre-test Pulse Ox 94 Pulse Rate (beats/min) 59 Dyspnea Balaji Scale (0-10) 0 Exertion Balaji Scale (6-20) 6 Full Laps Walked 23 Partial Lap, Number of Tiles Walked 6 Total Distance Walked (ft) 1363 - Interpretation Interpretation: The patient was able to ambulate a greater than expected distance over the course of 6 minutes on room air with no assistive devices. Patient did have a decreased baseline saturation of 94% at rest, but experienced no dangerously low saturations with ambulation. - Recommendations Recommendations: No oxygen supplementation at this time, but will need to be followed closely given level of desaturation. 08/29/14 1524 <Electronically signed by Marcel Howell MD> Date Marcel Howell MD CC: Date Dictated: 08/01/14 1559 Date Transcribed: 08/01/14 155 Feed Project Engineer: Marcel Howell Signed José Miguel Bryson MD Work Phone: Start: 08-07-2014 End: 08-08-2014 Documentation of current medications Marcel Howell Work Phone: Start: 08-07-2014 End: 08-08-2014 Documentation of current medications Marcel Howell Work Phone: Start: 08-05-2014 End: 08-05-2014 Procedure Note: See Note; NOTES: [facility] Pulmonary Services/Neurology [address] [place] [address] Pulmonary Function Test (Comp) MR#: [id number] Acct: [id number] Name: SUGAR COONEY Rep #: [id number] : 1940 74 From: Marcel Howell MD Referring Dr: Marcel Howell MD Status: REG CLI Ordering Dr: Marcel Howell MD Date: 07/30/14 Location: [facility] Sex: F C Date: 07/30/14 Tech.: CARIE CHELLE Temp: PBar: Height(in.): 61 Weight(lbs.): 193 Diagnosis: DEYSPNEA/SOB Medication: : Dyspnea Rest: Dyspnea Exercise: Cough: Productive (cc): Persistent: Smoker: N How Long (pk/yrs): Stopped (yrs): Cigarettes: Cigars: SPIROMETRY Ref ULN/LLN Pre Pre Post Post Post Lisa % Ref Lisa % Ref % Chg FVC (L) 2.53 2.45 97 2.33 92 -5 FEV1 (L) 2.01 2.01 100 1.98 98 -2 FEV1/FVC (%) 82 82 85 FEV6 2.37 2.32 -2 FEF 25-75% (L/sec) 1.94 3.25 167 2.96 153 -9 FEF 50% (L/sec) 2.63 (1.3 - 4.0) 4.21 160 4.78 181 14 FEF 75% (L/sec) 0.66 (0.2 - 1.1) 1.51 229 1.45 221 -4 PEF (L/sec) 5.05 (2.2 - 7.9) 5.41 107 5.77 114 7 FET 100% (sec) 9.44 7.77 -18 FIVC (L/min) 2.53 2.33 92 2.21 87 -5 FEF/FIF50 1.28 1.35 6 MVV (L/min) DIFFUSION Ref ULN/LLN Pre Pre Post Post Lisa % Ref Lisa % Ref DLCO (ml/min/mmHg) 20.9 (12.6 - 29.2) 17.1 82 DL Adj (ml/mmHg/min) 20.9 (12.6 - 29.2) 17.1 82 DLCO/VA (ml/mHg/min/L) 3.49 (1.7 - 5.3) 4.88 140 VA (L) 3.51 IVC (L) 2.44 DL/VA Adj (ml/mHg/min/L) PLETHYSMOGRAPHY Ref ULN/LLN Pre Pre Post Post Post LUNG SOUNDS (BTPS) Lisa % Ref Lisa % Ref % Chg TLC (L) 4.20 (3.4 - 5.0) 3.41 81 VC (L) 2.53 2.62 104 IC (L) 1.63 (1.2 - 2.1) 2.[address] (L) 2.01 (1.1 - 3.0) 0.87 43 ERV (L) 0.81 (0.6 - 1.0) 0.06 7 RV (L) 1.71 (1.0 - 2.4) 0.79 46 RV/TLC (%) 41 (29.1 - 52.5) 23 RESISTANCE Ref Pre Pre Post Post Post Lisa % Ref Lisa % Ref % Chg Raw Total (cmH20/L/sec) Raw Insp (cmH20/L/sec) Raw Exp (cmH20/L/sec) Raw (cmH20/L/sec) 1.98 1.87 94 GAW (L/sec/cmH20) sGAW (L/s/cmH20/L) 0.251 0.287 114 Vtg (Raw) (Liters) THERAPIST COMMENTS: Spirometry data is acceptable and reproducible. Aerosol given with unit dose albuterol. Patient gave good effort for testing. BRIEF HISTORY OF PRESENT ILLNESS: The patient is a 74-year-old female, currently under the care of myself, who presents for a complete pulmonary function test secondary to a diagnosis of dyspnea. The respiratory therapist reported good patient effort and reproducible results. INTERPRETATION: Forced expiration spirometry demonstrates no large airways obstructive ventilatory defect. There is no significant response to bronchodilators noted. Spirograms are of good quality and plateau normally. The respiratory flow volume loop appears normal. Lung volumes by body plethysmography show all lung volumes within normal limits. Diffusion capacity by single-breath carbon monoxide is preserved at 82% of predicted. Airway resistance is normal. No previous studies are available for comparison. IMPRESSION: These pulmonary function tests are within normal limits. 08/05/14 0641 <Electronically signed by Marcel Howell MD> Date Marcel Howell MD CC: Marcel Howell MD; Catherine Magana DO Date Dictated: 07/31/14 1500 Date Transcribed: 08/01/1433 Feed Project Engineer: JOSE Signed Marcel Howell Work Phone: Start: 08-01-2014 End: 08-01-2014 Procedure Note: See Note; NOTES: [facility] Pulmonary Services/Neurology [address] [place] [address] MR#: [id number] Acct: [id number] Name: SUGAR COONEY Rep #: [id number] : 1940 74 From: Marcel Howell MD Referring Dr: Marcel Howell MD Date: Ordering Dr: Sex: F C Location: [facility] PSN 6 Minute Walk Test - 6 Minute Walk Test 6 Minute Walk Test: 6 Minute Walk Test PSN 6 Minute Walk Test Start: 08/01/14 11:26 Freq: Status: Active Document 08/01/14 11:26 FR (Rec: 08/01/14 11:29 FR [id number]) 6 Minute Walk Test Date Performed 08/01/14 Time Performed 11:00 Height 1.63 m Weight: 87.[address]: Marcel Howell Oxygen Delivery Method Room Air Assistive Device Used None Post-test Pulse Ox 95 Pulse Rate (beats/min) 66 Dyspnea Balaji Scale (0-10) 0 Exertion Balaji Scale (6-20) 6 6th minute Pulse Ox 94 Pulse Rate (beats/min) 96 Dyspnea Balaji Scale (0-10) 3 Exertion Balaji Scale (6-20) 9 5th minute Pulse Ox 93 Pulse Rate (beats/min) 95 Dyspnea Balaji Scale (0-10) 3 Exertion Balaji Scale (6-20) 9 4th minute Pulse Ox 91 Pulse Rate (beats/min) 96 Dyspnea Balaji Scale (0-10) 3 Exertion Balaji Scale (6-20) 9 3rd minute Pulse Ox 93 Pulse Rate (beats/min) 97 Dyspnea Balaji Scale (0-10) 3 Exertion Balaji Scale (6-20) 9 2nd minute Pulse Ox 93 Pulse Rate (beats/min) 94 Dyspnea Balaji Scale (0-10) 2 Exertion Balaji Scale (6-20) 9 1st minute Pulse Ox 93 Pulse Rate (beats/min) 83 Dyspnea Balaji Scale (0-10) 2 Exertion Balaji Scale (6-20) 8 Pre-test Pulse Ox 94 Pulse Rate (beats/min) 59 Dyspnea Balaji Scale (0-10) 0 Exertion Balaji Scale (6-20) 6 Full Laps Walked 23 Partial Lap, Number of Tiles Walked 6 Total Distance Walked (ft) 1363 - Interpretation Interpretation: The patient was able to ambulate a greater than expected distance over the course of 6 minutes on room air with no assistive devices. Patient did have a decreased baseline saturation of 94% at rest, but experienced no dangerously low saturations with ambulation. - Recommendations Recommendations: No oxygen supplementation at this time, but will need to be followed closely given level of desaturation. 08/01/14 1600 <Electronically signed by Marcel Howell MD> Date Marcel Howell MD CC: Date Dictated: 08/01/14 1559 Date Transcribed: 08/01/14 1559 Feed Project Engineer: Marcel Howell Signed José Miguel Bryson MD Work Phone: Start: 05-07-2014 End: 05-08-2014 Documentation of current medications Marcel Howell Work Phone: Start: 05-07-2014 End: 05-08-2014 Documentation of current medications Marcel Howell Work Phone: Start: 03-15-2014 End: 03-15-2014 Procedure Note: See Note; NOTES: [facility] Cardiovascular Services [address] [place] [address] STRESS TEST REPORT 03/15/14 1433 MR#: [id number] Acct: [id number] Name: SUGAR COONEY Rep #: [id number] : 1940 74 From: Vaibhav North MD Primary Care: Catherine Magana DO Status: REG CLI Ordering Dr: Service Date: 03/15/14 Order Date: Sex: F C REASON FOR TEST A 74-year-old lady with a history of chest pain and chest tightness. EXERCISE TEST SUMMARY Resting EKG demonstrates sinus bradycardia with a rate of 58 beats per minute. The resting blood pressure was 124/70. The patient exercised according to the regular Marcel protocol for a total duration of 5 minutes and 30 seconds, attaining 134 beats, which was 90% of maximum predicted heart rate. The maximum workload attained was 7 METS. The patient maintained sinus rhythm throughout the recording. At rest, there were no ST or T-wave changes noted to suggest ischemia. At peak exercise, upsloping ST changes only were noted, which did not meet the criteria for ischemia. The resting blood pressure was 124/70 with a peak blood pressure of 196/70. Rate pressure product was 24,800. No clinical angina was noted. The test was terminated due to leg fatigue. CONCLUSION 1. Exercise stress test with no evidence of ischemia at a moderate workload. 2. Excellent functional work capacity for age. 3. No arrhythmias noted. 4. No clinical angina noted. 03/15/14 1718 <Electronically signed by Vaibhav North MD> Date Viabhav North MD CC: Vaibhav North MD; Catherine Magana DO Date Dictated: 03/15/14 1433 Date Transcribed: 03/15/14 1610 Feed Project Engineer: JOSE Bryson MD Work Phone: Start: 03-14-2014 End: 03-15-2014 Procedure Note: See Note; NOTES: [facility] Imaging Services [address] [place] [address] CAT Scan Report MR#: [id number] Acct: [id number] Name: SUGAR COONEY Rep #: [id number] : 1940 F 74 From: Patricio Espana MD PCP: Catherine Magana DO Status: REG CLI Study: Chest without Contrast Date of Exam: 03/14/14 Exam# [id number] Ordering Dr: Catherine Magana DO STUDY: CT CHEST WITHOUT CONTRAST REASON FOR EXAM: Female, 74 years old. Interstitial lung disease, chronic cough RADIATION DOSAGE (If Supplied By Facility): CTDIvol = ( 20.72 ) mGy, DLP = ( 643.25 ) mGycm TECHNIQUE: High resolution transaxial imaging was performed without the administration of intravenous contrast material. Multiplanar coronal and sagittal images were reformatted. COMPARISON: None. FINDINGS: Lung windows show peripheral interstitial fibrotic changes in both lung boyd with scattered groundglass opacifications suggestive of active lobulated. There is no acute pneumonia, pleural or pericardial effusion. No demonstrated bronchiectasis or subpleural nodules. Peripheral calcifications noted in the thoracic aorta without aneurysm. Bony structures show degenerative change. Limited cuts through the upper abdomen do not show a suspicious abnormality. IMPRESSION: Scattered interstitial fibrotic changes in the periphery of both lung boyd. No superimposed pneumonia or pleural effusion. 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 Electronically Signed: Kelvin Espana MD at 8:28 EST , Service support [phone], CC: Catherine Magana DO Feed Project Engineer: Signed Catherine Magana DO Work Phone: Start: 03-12-2014 End: 03-12-2014 Procedure Note: See Note; NOTES: [facility] Imaging Services [address] [place] [address] Ultrasound Report MR#: [id number] Acct: [id number] Name: SUGAR COONEY Rep #: [id number] : 1940 F 74 From: Raul Brandt MD PCP: Catherine Magana DO Status: REG CLI Study: Gallbladder Date of Exam: 03/12/14 Exam# [id number] Ordering Dr: Catherine Magana DO STUDY: ABDOMINAL ULTRASOUND - RIGHT UPPER QUADRANT REASON FOR VISIT: Female, 74 years old. Chest pain. TECHNIQUE: Ultrasound evaluation of the right upper quadrant was performed with real-time and static gonzalez-scale imaging. TECHNICAL QUALITY: Adequate. COMPARISON: None. FINDINGS: Liver: The liver measures 14.5 cm. There is normal echogenicity of the liver. The bile ducts are within normal limits. There is hepatic color flow. The direction of portal flow is hepatopetal. There is no demonstrated mass lesion. Gallbladder: Normal distended gallbladder. The gallbladder wall measures 2.0 mm. There is a negative sonographic Craft's sign. There is no pericholecystic fluid. There are no gallstones. Ringdown artifact is seen along the anterior wall of the gallbladder. This may represent cholesterolosis. Common Bile Duct (C.B.D.): The common bile duct measures 2.9 mm. Pancreas: Normal size of the head, body and tail of the pancreas. There is normal echogenicity of the pancreas. There is no demonstrated pancreatic mass or cyst. Right Kidney: Normal size of the right kidney. The right kidney measures 10.1 cm x 3.2 cm x 3.7 cm. Normal renal cortex. The right cortex measures 1.3 cm. There is no demonstrated renal mass or cyst. There is no right hydronephrosis. 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 Electronically Signed: Raul Brandt MD at 10:38 EST Tel [phone], Service support [phone], CC: Catherine Magana DO Feed Project Engineer: Signed Catherine Magana DO Work Phone: Start: 02-27-2014 End: 02-27-2014 Procedure Note: See Note; NOTES: [facility] Cardiovascular Services [address] [place] [address] Echo Complete 02/27/14 1050 MR#: [id number] Acct: [id number] Name: SUGAR COONEY Rep #: [id number] : 1940 74 From: Jim Calvin MD Attending Dr: Catherine Magana DO Status: REG CLI Ordering Dr: Catherine Magana DO Date: 02/27/14 Location: [facility] Sex: F C Admitted: Procedure This was a 2D Doppler, Color Flow transthoracic echocardiogram. Exam performed in department. Left Ventricle Normal size and thickness. The estimated ejection fraction is 65 %. Normal diastology for age. No regional wall motion abnormalities noted. Right Ventricle Normal right ventricle. Normal systolic function. Atria Normal left atrium. Normal right atrium. Normal atrial septum. Mitral Valve The mitral valve is structurally normal. No prolapse or stenosis seen. Trivial mitral valve insufficiency. Tricuspid Valve Normal tricuspid valve. Mild (1+) tricuspid valve insufficiency. Right ventricular systolic pressure estimated to be 31 mmHg. Aortic Valve Trisinus/trileaflet aortic valve. Mild focal aortic valve thickening. Mild (1+) aortic valve insufficiency. Pulmonic Valve Normal pulmonic valve. Great Vessels Normal aortic root. Normal arch. Normal inferior vena cava. Inferior vena cava collapse with sniff. Pericardium/Pleural No pericardial effusion. LVIDd: 4.6 cm IVSd: 0.70 cm Ao root diam: 3.1 cm LAV(MOD-bp): 53.4 ml LVIDs: 2.8 cm LVPWd: 1.0 cm Ao root area: 7.7 cm2 LAV(MOD-bp) Indexed: 29.0 ml/m2 RVDd: 2.8 cm FS: 40.1 % LA dimension: 4.1 cm LAV(MOD-sp2): 50.9 ml LAV(MOD-sp4): 53.4 ml LA A4 area: 19.5 cm2 RA A4 area: 19.0 cm2 MV E max rachael: 91.1 cm/sec Lat Peak E' Rachael: Med Peak E' Rachael: Ao V2 max: MV A max rachael: 77.6 cm/sec 11.2 cm/sec 8.8 cm/sec 142.9 cm/sec MV E/A: 1.2 Ao max P.2 mmHg AI max rachael: 400.8 cm/sec LV V1 max: 128.1 cm/sec MR max rachael: 416.6 cm/sec PA V2 max: 88.0 cm/sec AI max P.4 mmHg LV V1 max P.6 mmHg MR max P.4 mmHg PA max P.1 mmHg AI dec slope: 161.9 cm/sec2 AI P1/2t: 725.1 msec TR max racahel: 254.3 cm/sec E/E' lat: 8.2 E/E' med: 10.3 TR max P.9 mmHg Interpretation Summary The estimated ejection fraction is 65 %. Normal diastology for age. Mild (1+) tricuspid valve insufficiency. Mild (1+) aortic valve insufficiency. Right ventricular systolic pressure estimated to be 31 mmHg. Compared to echo report dated 07/29/2008, no appreciable changes noted. _ Ordering Physician: Catherine Magana Performed By: Joya Herman RDCS 02/27/14 1159 Date Jim Calvin MD CC: Catherine Magana DO Date Dictated: 02/27/14 1050 Date Transcribed: 02/27/14 1159 Feed Project Engineer: Signed José Miguel Bryson MD Work Phone: Start: 02-25-2014 End: 02-25-2014 Procedure Note: See Note; NOTES: [facility] Imaging Services [address] [place] [address] Radiology Report MR#: [id number] Acct: [id number] Name: SUGAR COONEY Rep #: [id number] : 1940 F 74 From: Patricio Espana MD PCP: Catherine Magana DO Status: REG CLI Study: Chest PA and Lateral Date of Exam: 02/25/14 Exam# [id number] Ordering Dr: Catherine Magana DO STUDY: X-RAY CHEST REASON FOR EXAM: Female, 74 years old. Left upper chest pain TECHNIQUE: PA and lateral views of the chest. COMPARISON: 2008 FINDINGS: There are interstitial fibrotic changes of the lungs. There is no demonstrated pleural abnormality. Normal size heart. Normal mediastinum and ronnie. Normal visualized pulmonary arteries. Normal visualized aortic arch and descending thoracic aorta. Normal visualized thoracic spine. Normal visualized ribs, clavicles, and shoulders. There is no demonstrated abnormality of the visualized soft tissue structures of the upper abdomen. IMPRESSION: Chronic interstitial changes, no acute findings Electronically Signed: Kelvin Espana MD at 10:41 EST , Service support [phone], RAD/Chest PA and Lateral IMPRESSION: Chronic interstitial changes, no acute findings Electronically Signed: Kelvin Espana MD at 10:41 EST , Service support [phone], CC: Catherine Magana DO Feed Project Engineer: Signed Catherine Magana DO Work Phone: Start: 02-25-2014 End: 02-25-2014 Spmtry w/vc expiratory darrel w/wo mxml vol vntj _ Catherine Magana DO Work Phone: Start: 07-23-2013 End: 07-23-2013 Procedure Note: See Note; NOTES: [facility] Imaging Services [address] [place] [address] Breast Imaging Report MR#: [id number] Acct: [id number] Name: SUGAR COONEY Rep #: [id number] : 1940 F 73 From: Raul Brandt MD PCP: Catherine Magana DO Status: REG CLI Exam# [id number] Ordering Dr: Catherine Magana DO MAMMOGRAPHY - BILATERAL SCREENING REASON FOR EXAM: Female, 73 years old. Routine annual screening examination. PERTINENT HISTORY: Grandmother with breast cancer. TECHNIQUE: Digital examination. Mediolateral oblique (MLO) and craniocaudad (CC) views of both breasts were obtained. CAD: CAD was performed on this study. COMPARISON: Comparison is made with prior study dated July 18, 2012 and June 28, 2011. FINDINGS: The breast composition is composed of scattered fibroglandular tissues ranging from 25% to 50% of the breast. There are no dominant masses or suspicious calcifications. No other significant abnormalities are identified. There has been no significant change since the prior study. IMPRESSION: Stable bilateral screening mammogram. Yearly follow-up recommended. (A) ASSESSMENT CATEGORY: BIRADS Category 2: Benign finding(s). A letter regarding these results will be sent to the patient by the facility within 30 days. Approximately 10% of breast cancers are not detected by mammography. A normal mammogram should not delay biopsy of a clinically suspicious abnormality. Electronically Signed: Raul Brandt MD at 10:04 EDT Tel [phone], Service support [phone], CC: Catherine Magana DO Feed Project Engineer: Signed Catherine Magana DO Work Phone: Start: 02-06-2013 End: 02-07-2013 Procedure Note: See Note; NOTES: [facility] Imaging Services [address] [place] [id number] Radiology Report MR#: [id number] Acct: [id number] Name: SUGAR COONEY Rep #: [id number] : 1940 F 73 From: Patricio Collins MD PCP: Catherine Magana DO Status: REG CLI Exam# [id number] Ordering Dr: Catherine Magana DO STUDY: X-RAY - LEFT TIBIA AND FIBULA REASON FOR EXAM: Female, 73 years old. Calf pain. TECHNIQUE: 2 views of the tibia and fibula were obtained. COMPARISON: None. FINDINGS: Normal visualized tibia. Normal visualized fibula. There is no demonstrated destructive osseous lesion or fracture. The soft tissue structures are unremarkable. IMPRESSION: Normal x-ray examination of the tibia and fibula. Signed: Kelvin Collins M.D. February 07, 2013 at 12:02:37 AM EST Electronically Signed BU/BU If you are the referring physician and would like to consult with the radiologist who provided this interpretation, please contact Kelvin Collins M.D. at . If this radiologist is unavailable, you will be directed to another radiologist to assist. If you are a patient with a question regarding this report, please contact your referring physician directly. Professional Interpretation Provided By: [employer], Phone , These documents contain legally protected and confidential health information intended only for the use of the individual or entity named above. If you are not the intended recipient, you are hereby notified that any disclosure, copying, distribution, or other use of these documents is strictly prohibited. If you have received this information in error, please notify the sender immediately and arrange for the return or destruction of these documents. CC: Catherine Magana DO Feed Project Engineer: Signed Catherine Magana DO Work Phone: Start: 01-01-2013 End: 01-03-2013 Procedure Note: See Note; NOTES: [facility] Imaging Services [address] [place] [id number] Radiology Report MR#: [id number] Acct: [id number] Name: SUGAR COONEY Rep #: [id number] : 1940 F 72 From: Colton Her PCP: Catherine Magana DO Status: REG CLI Study: Knee 4 or More Views Date of Exam: 01/01/13 Exam# [id number] Ordering Dr: Catherine Magana DO STUDY: X-RAY - LEFT KNEE REASON FOR EXAM: Female, 72 years old. Pain TECHNIQUE: 4 views of the knee. COMPARISON: None. FINDINGS: Normal visualized distal femur. Normal visualized proximal tibia and fibula. Normal proximal tibiofibular articulation. There is no demonstrated fracture. Normal medial femorotibial compartment. Normal lateral femorotibial compartment. There is mild degenerative arthrosis of the patellofemoral articulation. The soft tissue structures are unremarkable. IMPRESSION: No fracture. Mild degenerative change. Signed: Colton Her M.D. January 01, 2013 at 8:44:23 PM EDT [phone] Electronically Signed BP/BP If you are the referring physician and would like to consult with the radiologist who provided this interpretation, please contact Colton Her M.D. at [phone]. If this radiologist is unavailable, you will be directed to another radiologist to assist. If you are a patient with a question regarding this report, please contact your referring physician directly. Professional Interpretation Provided By: [employer], Phone , These documents contain legally protected and confidential health information intended only for the use of the individual or entity named above. If you are not the intended recipient, you are hereby notified that any disclosure, copying, distribution, or other use of these documents is strictly prohibited. If you have received this information in error, please notify the sender immediately and arrange for the return or destruction of these documents. CC: Catherine Magana DO Feed Project Engineer: Signed Catherine Magana DO Work Phone: Decompression of med lucas nerve Gail Villanueva RN Plan of Treatment Date Care Activity Detail Author Start: 07-17-2026 DIABETES SCREEN DIABETES SCREEN [facility] Start: 04-12-2025 DIABETES SCREEN DIABETES SCREEN [facility] Start: 09-14-2024 DIABETES SCREEN DIABETES SCREEN [facility] Start: 04-09-2024 DIABETES SCREEN DIABETES SCREEN [facility] Start: 04-19-2023 Urine microalbumin profile DTA P,TDAP,TD (2 - Td or Tdap) [facility] Immunizations Immunization Date Immunization Notes Care Provider Fa cilimya 12-27-2022 COVID-Pfizer (30 MCG/0.3 ML) Catherine Magana DO Work Phone: [facility]; [facility] Work Phone: 12-10-2021 COVID-19 booster vaccine, age 12+ yr, bivalent (PFIZER-BIONTECH) Virgilio Rojas MD Work Phone: [facility] 12-29-2020 COVID-19 vaccine, ag e 12+ yr (PFIZER-BIONTECH - PURPLE TOP) Maria Dolores Garcia PA-C Work Phone: [facility] 11-27-2020 influenza, high dose seasonal, preservative-free Maria Dolores WELDONC Work Phone: [facility] 06-12-2020 COVID-19 vaccine, ag e 12+ yr (PFIZER-BIONTECH - PURPLE TOP) Maria Dolores WELDONC Work Phone: [facility] 05-22-2020 COVID-19 vaccine, ag e 12+ yr (PFIZER-BIONTECH - PURPLE TOP) Maria Dolores Garcia PA-C Work Phone: [facility] 10-16-2019 zoster vaccine recombinant Maria Dolores LOPEZ-C Work Phone: [facility] 07-13-2019 zoster vaccine recombinant Maria Dolores LOPEZ-C Work Phone: [facility] 01-13-2018 influenza, high dose seasonal, preservative-free Maria Dolores LOPEZ-C Work Phone: [facility] 12-06-2017 pneumococcal polysaccharide vaccine, 23 valent Maria Dolores Garcia PA-C Work Phone: [facility] 12-16-2015 influenza, seasonal, injectable Maria Dolores Garcia PA-C Work Phone: [facility] 12-11-2014 influenza, seasonal, injectable Maria Dolores Garcia PA-C Work Phone: [facility] 03-06-2014 pneumococcal conjuga te vaccine, 13 valent Maria Dolores Garcia PA-C Work Phone: [facility] 01-01-2013 influenza, seasonal, injectable Maria Dolores Garcia PA-C Work Phone: [facility] 01-21-2012 influenza, seasonal, injectable Maria Dolores Garcia PA-C Work Phone: [facility] 07-06-2011 pneumococcal polysaccharide vaccine, 23 valent Maria Dolores Garcia PA-C Work Phone: [facility] 01-27-2011 influenza, seasonal, injectable Maria Dolores Garcia PA-C Work Phone: [facility] 12-14-2010 tetanus toxoid, redu amber diphtheria toxoid, and acellular pertussis vaccine, adsorbed Maria Dolores Garcia PA-C Work Phone: [facility] 03-18-2010 influenza, seasonal, injectable Maria Dolores Garcia PA-C Work Phone: [facility] 12-30-2008 influenza, seasonal, injectable Maria Dolores Garcia PA-C Work Phone: [facility] 01-29-2008 influenza, seasonal, injectable Maria Dolores Garcia PA-C Work Phone: [facility] 01-30-2007 influenza, seasonal, injectable Maria Dolores Garcia PA-C Work Phone: [facility] 05-24-2006 pneumococcal polysaccharide vaccine, 23 valent Maria Dolores Garcia PA-C Work Phone: [facility] 03-24-2006 influenza, seasonal, injectable Maria Dolores Garcia PA-C Work Phone: [facility] 03-18-2006 influenza, seasonal, injectable Maria Dolores Garcia PA-C Work Phone: [facility] Payers Date Payer Category Payer Medicare [employer] [place] [id number] 2014-Present [phone] [address] [place] [address] O [id number] 2014 Medicare [employer] [place] [id number] 2014-Present [phone] [address] [place] [address] O [id number] 2014 Medicare [id number] Unknown Social History Date Type Detail Facility Start: 12-06-2017 End: 04-19-2022 Tobacco smoking status NHIS Never smoked tobacco [facility] Start: 06-22-2021 End: 10-22-2022 Alcohol intake Current drinker of alcohol (finding) [facility] Start: 04-14-2021 End: 04-15-2022 History SDOH Alcohol Frequency 1 [facility] Start: 04-14-2021 History SDOH Alcohol Std Drinks 98 [facility] Start: 07-09-2011 History SDOH Alcohol Comment socially [facility] Start: 04-14-2021 End: 04-15-2022 History SDOH Social Connections Phone 4 [facility] Start: 04-14-2021 End: 04-15-2022 History SDOH Social Connections Get Together 2 [facility] Start: 04-14-2021 End: 04-15-2022 History SDOH Social Connections Yazidi 3 [facility] Start: 04-14-2021 End: 04-15-2022 History SDOH Financial 5 [facility] Start: 03-15-2020 Education 12 [facility] Start: 1940 Sex Assigned At Female [facility] Start: 06-12-2021 End: 09-16-2021 Exposure to SARS-CoV-2 (event) Not sure [facility] Start: 12-06-2017 End: 04-19-2022 Tobacco use and exposure Smokeless tobacco non-user [facility] Start: 04-15-2022 End: 10-18-2022 History of Social function [facility] Start: 04-15-2022 End: 10-18-2022 Social connection and isolation panel [facility] Do you belong to any clubs or organizations such as latter day groups, unions, fraternal or athletic groups, or school groups? No [facility] Are you now , , , , never or living with a partner? [facility] How often to you hav e a drink containing alcohol? Monthly or less [facility] How many standard dr inks containing alcohol do you have on a typical day? 1 or 2 [facility] How often do you hav e 6 or more drinks on 1 occasion? Never [facility] How hard is it for y ou to pay for the very basics like food, housing, medical care, and heating Not hard at all [facility] Do you feel stress - tense, restless, nervous, or anxious, or unable to sleep at night because your mind is troubled all the time - these days [OSQ] Not at all [facility] (I/We) worried wheth er (my/our) food would run out before (I/we) got money to buy more. Never true [facility] Start: 12-07-2018 Gender identity Identifies as female gender (finding) [facility] Does not exercise. [facility]; [facility] Work Phone: Never smoker. [facility] Work Phone: Clinical Notes 12-31-2015 to 10-22-2022 Farzana Larsen, [facility] - 10/22/2022 7:20 AM EDTVirgilio Rojas MD - 06/18/2022 12:00 PM EDTPatient InstructionsVirgilio Rojas MD - 04/19/2022 1:20 PM ESTPatient Instructions Note Date & Type Note Facility 10-22-2022 Note HNO ID: [id number] Author: Annalise Sanchez RT(R) Service: Radiology Author Type: Technologist Type: Progress Notes Filed: 10/22/2022 8:10 AM Note Text: Radiology Service Progress Note PATIENT NAME: Sugar Cooney DATE OF SERVICE: October 22, 2022 TIME: 8:03 AM PATIENT IDENTITY VERIFICATION COMPLETED USING TWO (2) IDENTIFIERS: Name and Date of confirmed by patient verbally. FALL SCREENING: Has the patient had 2 falls in the last year or 1 fall with injury or currently using an Ambulatory Assistive Device (Walker, Cane, Wheelchair, Crutches, etc.)? No PATIENT GENDER DATA: Female. status: : No status: NO. PATIENT RELEVANT IMPLANT DATA REVIEWED: Not Applicable RADIOLOGY DEPARTMENT: General X-ray: Exam(s) Completed: Upper Extremity X-Ray(s): Hand, right PERIPHERAL IV DATA: Not applicable SIGNED BY: RT Daniel(R) October 22, 2022 8:03 AM [facility] 10-22-2022 Note HNO ID: [id number] Author: Farzana Larsen APRN.ASPHALT TAMPER Service: ? Author Type: Nurse Practitioner Type: Progress Notes Filed: 10/22/2022 8:33 AM Note Text: This note was created using [employer]riter. Subjective Sugar Cooney is a 82 year old female. 82 year old female with PMH GERD presents for complaints of right thumb/right hand pain. Acute onset Tuesday. States she woke up with pain in base of right thumb. Like something bit me, maybe a spider She states she saw chiropractor that same day for her sciatica, At that time she worked on it and did some accupuncture States it seemed to be more aggravated afterwards +redness. +pain with range of motion. Denies fever or chills. Denies numbness. Denies tingling. Right hand dominant. Denies prior history of surgery or hand fractures. in August. The history is provided by the patient. No central station operator was used. Hand Pain Pain location: right thumb/right hand. This is a new problem. The current episode started in the past 7 days. There has been no history of extremity trauma. The problem occurs constantly. The problem has been gradually worsening. The quality of the pain is described as sharp and aching. The pain is at a severity of 6/10. The pain is moderate. Associated symptoms include a limited range of motion. Pertinent negatives include no fever, inability to bear weight, itching, joint locking, joint swelling, numbness, stiffness or tingling. The symptoms are aggravated by activity. She has tried rest for the symptoms. The treatment provided no relief. Family history does not include gout or rheumatoid arthritis. There is no history of diabetes, gout, osteoarthritis or rheumatoid arthritis. 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 Living will in place 04/19/2022 DPA: Clifford () Nonrheumatic aortic valve insufficiency 12/24/2017 US 11/2017 mild Plantar fascial fibromatosis Vasomotor rhinitis 12/01/2016 PAST SURGICAL HISTORY Procedure Laterality Date 2D ECHO (EXEP) 11/2017 EF=71%, mild LA dilated, mild AR, 2D ECHO (EXEP) 09/2020 EF=65%, 1+ MR and AR, mild champagne dysf, unchanged from 2018 APPENDECTOMY BUNIONECTOMY, LAPIDUS-TYPE bilat feet CARPAL TUNNEL 04/2010 right CATARACT EXTRACTION HX Left 07/24/2018 COLONOSCOPY FLX DX W/COLLJ SPEC WHEN PFRMD 08/16/2007 repeat 10 ys COLONOSCOPY FLX DX W/COLLJ SPEC WHEN PFRMD 12/29/2017 Colonoscopy LIG/TRNSXJ FLP TUBE ABDL/VAG APPR UNI/BI Tubal ligation PAST SURGICAL HISTORY OF foot surgery x 3 PAST SURGICAL HISTORY OF eyelid surgery bilat PAST SURGICAL HISTORY OF Right 2016 eye surgery for ambliopia PAST SURGICAL HISTORY OF Right 02/25/2022 trigger release on ring finger REVISE MEDIAN N/CARPAL TUNNEL SURG Left 09/09/2022 SIGMOIDOSCOPY FLX DX W/COLLJ SPEC BR/WA IF PFRMD 05/30/2000 Sigmoidoscopy SLING OPER STRES INCONTINENCE SLING OPER STRES INCONTINENCE 2000 STRESS TEST (EXERCISE) TREADMILL 09/29/2018 negative ALLERGIES Patient has no known allergies. MEDICATIONS omeprazole (PRILOSEC) 40 mg capsule Take 1 capsule by mouth twice daily. 1/2 hr before meal. valACYclovir (VALTREX) 500 mg tablet Take 1 tablet by mouth twice daily for 3 days ondansetron orally disintegrating (ZOFRAN ODT) 4 mg disintegrating tablet Take 1 tablet by mouth every 6 hours as needed for nausea/vomiting. calcium carbonate/vitamin D3 (CALTRATE 600 + D ORAL) Take by mouth. ergocalciferol, vitamin D2, (VITAMIN D2 ORAL) Take by mouth. MULTIVITAMIN TAB Take one(1) tablet daily. cephALEXin (KEFLEX) 500 mg capsule Take 1 capsule by mouth four times daily for 5 days. methylPREDNISolone (MEDROL, MAUREEN,) 4 mg Dose-Pack Follow dosing instructions, take with food. FAMILY HISTORY Problem Relation Age of Onset other (lymphoma) Mother Diabetes Sister Hypertension Sister Diabetes Brother Heart Father Stroke Father Heart Brother Hypertension Brother Breast Cancer Maternal Grandmother No Known Problems Daughter No Known Problems Daughter No Known Problems Son Breast Cancer Paternal Aunt Social History Tobacco Use Smoking status: Never Smokeless tobacco: Never Vaping Use Vaping Use: Never used Substance Use Topics Alcohol use: Yes Comment: socially (more content not included)... [facility] 10-22-2022 History of Present illness Narrative Images from the original note were not included. This note was created using [employer] ([employer]riter. Subjective Sugar Cooney is a 82 year old female. 82 year old female with PMH GERD presents for complaints of right thumb/right hand pain. Acute onset Tuesday. States she woke up with pain in base of right thumb. Like something bit me, maybe a spider She states she saw chiropractor that same day for her sciatica, At that time she worked on it and did some accupuncture States it seemed to be more aggravated afterwards +redness. +pain with range of motion. Denies fever or chills. Denies numbness. Denies tingling. Right hand dominant. Denies prior history of surgery or hand fractures. in August. The history is provided by the patient. No central station operator was used. Hand Pain Pain location: right thumb/right hand. This is a new problem. The current episode started in the past 7 days. There has been no history of extremity trauma. The problem occurs constantly. The problem has been gradually worsening. The quality of the pain is described as sharp and aching. The pain is at a severity of 6/10. The pain is moderate. Associated symptoms include a limited range of motion. Pertinent negatives include no fever, inability to bear weight, itching, joint locking, joint swelling, numbness, stiffness or tingling. The symptoms are aggravated by activity. She has tried rest for the symptoms. The treatment provided no relief. Family history does not include gout or rheumatoid arthritis. There is no history of diabetes, gout, osteoarthritis or rheumatoid arthritis. PAST MEDICAL HISTORY Diagnosis Date Acid reflux Advance directive discussed with patient 04/19/2022 Discussed 03/2022: Need to bring in copies Age related osteoporosis 12/01/2016 Started forteo 02/2016 (needs to be on for 2 yrs) Breast cyst 07/11/2011 Chronic serous otitis media Diffuse cystic mastopathy Diverticulosis of colon Diverticulosis of colon (without mention of hemorrhage) Edema Elevated blood sugar 04/17/2021 GERD without esophagitis 09/09/2020 [place]'s disease 03/17/2020 Dr. Meeks, benign skin rash chest and back Herpes simplex infection of genitourinary system 01/25/2017 Herpes zoster without mention of complication shingles Lazy eye of right side 03/17/2020 Since . Living will in place 04/19/2022 DPA: Clifford () Nonrheumatic aortic valve insufficiency 12/24/2017 US 11/2017 mild Plantar fascial fibromatosis Vasomotor rhinitis 12/01/2016 PAST SURGICAL HISTORY Procedure Laterality Date 2D ECHO (EXEP) 11/2017 EF=71%, mild LA dilated, mild AR, 2D ECHO (EXEP) 09/2020 EF=65%, 1+ MR and AR, mild champagne dysf, unchanged from 2018 APPENDECTOMY BUNIONECTOMY, LAPIDUS-TYPE bilat feet CARPAL TUNNEL 04/2010 right CATARACT EXTRACTION HX Left 07/24/2018 COLONOSCOPY FLX DX W/COLLJ SPEC WHEN PFRMD 08/16/2007 repeat 10 ys COLONOSCOPY FLX DX W/COLLJ SPEC WHEN PFRMD 12/29/2017 Colonoscopy LIG/TRNSXJ FLP TUBE ABDL/VAG APPR UNI/BI Tubal ligation PAST SURGICAL HISTORY OF foot surgery x 3 PAST SURGICAL HISTORY OF eyelid surgery bilat PAST SURGICAL HISTORY OF Right 2016 eye surgery for ambliopia PAST SURGICAL HISTORY OF Right 02/25/2022 trigger release on ring finger REVISE MEDIAN N/CARPAL TUNNEL SURG Left 09/09/2022 SIGMOIDOSCOPY FLX DX W/COLLJ SPEC BR/WA IF PFRMD 05/30/2000 Sigmoidoscopy SLING OPER STRES INCONTINENCE SLING OPER STRES INCONTINENCE 2000 STRESS TEST (EXERCISE) TREADMILL 09/29/2018 negative ALLERGIES Patient has no known allergies. MEDICATIONS omeprazole (PRILOSEC) 40 mg capsule Take 1 capsule by mouth twice daily. 1/2 hr before meal. valACYclovir (VALTREX) 500 mg tablet Take 1 tablet by mouth twice daily for 3 days ondansetron orally disintegrating (ZOFRAN ODT) 4 mg disintegrating tablet Take 1 tablet by mouth every 6 hours as needed for nausea/vomiting. calcium carbonate/vitamin D3 (CALTRATE 600 + D ORAL) Take by mouth. ergocalciferol, vitamin D2, (VITAMIN D2 ORAL) Take by mouth. MULTIVITAMIN TAB Take one(1) tablet daily. cephALEXin (KEFLEX) 500 mg capsule Take 1 capsule by mouth four times daily for 5 days. methylPREDNISolone (MEDROL, MAUREEN,) 4 mg Dose-Pack Follow dosing instructions, take with food. FAMILY HISTORY Problem Relation Age of Onset other (lymphoma) Mother Diabetes Sister Hypertension Sister Diabetes Brother Heart Father Stroke Father Heart Brother Hypertension Brother Breast Cancer Maternal Grandmother No Known Problems Daughter No Known Problems Daughter No Known Problems Son Breast Cancer Paternal Aunt Social History Tobacco Use Smoking status: Never Smokeless tobacco: Never Vaping Use Vaping Use: Never used Substance Use Topics Alcohol use: Yes Comment: socially Drug use: No Review of Systems Constitutional: Negative for activity change, appetite change, chills and fever. Eyes: Negative for pain, discharge, redness and itching. Respiratory: Negative for apnea, cough, choking and chest tightness. Cardiovascular: Negative for chest pain, palpitations and leg swelling. Gastrointestinal: Negative for abdominal pain, diarrhea, nausea and vomiting. Musculoskeletal: Negative for arthralgias, back pain, gout and stiffness. Right hand and right thumb pain Skin: Negative for color change, itching, pallor, rash and wound. Allergic/Immunologic: Negative for environmental allergies, food allergies and immunocompromised state. Neurological: Negative for dizziness, tingling, light-headedness, numbness and headaches. Hematological: Negative for adenopathy. Does not bruise/bleed easily. Psychiatric/Behavioral: Negative for agitation and behavioral problems. Objective BP 118/70 Pulse 78 Temp 36.1 C (96.9 F) Resp 16 Wt 79.4 kg (175 lb) SpO2 96% BMI 33.61 kg/m Physical Exam Vitals and nursing note reviewed. Constitutional: General: She is not in acute distress. Appearance: Normal appearance. She is normal weight. She is not ill-appearing, toxic-appearing or diaphoretic. HENT: Head: Normocephalic and atraumatic. Right Ear: Ear canal and external ear normal. Left Ear: Ear canal and external ear normal. Nose: Nose normal. No congestion or rhinorrhea. Mouth/Throat: Mouth: Mucous membranes are moist. Pharynx: No oropharyngeal exudate or posterior oropharyngeal erythema. Eyes: General: Right eye: No discharge. Left eye: No discharge. Extraocular Movements: Extraocular movements intact. Conjunctiva/sclera: Conjunctivae normal. Pupils: Pupils are equal, round, and reactive to light. Cardiovascular: Rate and Rhythm: Normal rate and regular rhythm. Pulses: Normal pulses. Heart sounds: Normal heart sounds. No murmur heard. No friction rub. Pulmonary: Effort: Pulmonary effort is normal. No respiratory distress. Breath sounds: Normal breath sounds. No stridor. No wheezing, rhonchi or rales. Chest: Chest wall: No tenderness. Abdominal: General: Abdomen is flat. There is no distension. Palpations: Abdomen is soft. There is no mass. Tenderness: There is no abdominal tenderness. There is no right CVA tenderness, left CVA tenderness, guarding or rebound. Hernia: No hernia is present. Musculoskeletal: General: No deformity or signs of injury. Hands: Cervical back: Normal range of motion and neck supple. No rigidity. Right lower leg: No edema. Left lower leg: No edema. Comments: Right hand with diffuse/mild swelling noted. +pain with range of motion RP + 3 B/L Lymphadenopathy: Cervical: No cervical adenopathy. Skin: General: Skin is warm and dry. Capillary Refill: Capillary refill takes less than 2 seconds. Coloration: Skin is not jaundiced or pale. Findings: No bruising, erythema, lesion or rash. Neurological: General: No focal deficit present. Mental Status: She is alert and oriented to person, place, and time. Cranial Nerves: No cranial nerve deficit. Sensory: No sensory deficit. Motor: No weakness. Coordination: Coordination normal. Gait: Gait normal. Psychiatric: Mood and Affect: Mood normal. Behavior: Behavior normal. Thought Content: Thought content normal. Judgment: Judgment normal. Assessment and Plan ASSESSMENT/PLAN: 1. Swelling of right hand - ICD9: 729.81, ICD10: M79.89 (primary diagnosis) X 5 days No known trauma or injury ?? Inflammatory vs infection - XR HAND GENERAL 3V PA/LAT/OBL RIGHT-negative for fracture +osteoarthritis RX Keflex RX Medrol Dose Pack F/U with PCP if sx persist. 2. Thumb pain, right - ICD9: 729.5, ICD10: M79.644 X 5 days No known trauma or injury ?? Inflammatory vs infection - XR HAND GENERAL 3V PA/LAT/OBL RIGHT-negative for fracture +osteoarthritis RX Keflex RX Medrol Dose Pack F/U with PCP if sx persist. Farzana Larsen APRN.ASPHALT TAMPER documented in this encounter [facility] 10-18-2022 Note HNO ID: [id number] Author: Maria Dolores Garcia PA-C Service: ? Author Type: Physician Fishing Floats Assembler Type: Progress Notes Filed: 10/18/2022 2:20 PM Note Text: Chief Complaint Patient presents with: 6 Month Exam HPI Sugar Cooney is a 82 year old female who presents here today for Chronic Medical Conditions.. Patient with hx of GERD, osteoporosis, elevated glucose, HSV, and those as below. Patient overall doing well. No concerns today. past away. She feels like she is overall doing well emotionally. Has good support from family and neighbors. Past medical history, appointments, medications, allergies reviewed. 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 Living will in place 04/19/2022 DPA: Clifford () Nonrheumatic aortic valve insufficiency 12/24/2017 US 11/2017 mild Plantar fascial fibromatosis Vasomotor rhinitis 12/01/2016 Previous Surgical History PAST SURGICAL HISTORY Procedure Laterality Date 2D ECHO (EXEP) 11/2017 EF=71%, mild LA dilated, mild AR, 2D ECHO (EXEP) 09/2020 EF=65%, 1+ MR and AR, mild champagne dysf, unchanged from 2018 APPENDECTOMY BUNIONECTOMY, LAPIDUS-TYPE bilat feet CARPAL TUNNEL 04/2010 right CATARACT EXTRACTION HX Left 07/24/2018 COLONOSCOPY FLX DX W/COLLJ SPEC WHEN PFRMD 08/16/2007 repeat 10 ys COLONOSCOPY FLX DX W/COLLJ SPEC WHEN PFRMD 12/29/2017 Colonoscopy LIG/TRNSXJ FLP TUBE ABDL/VAG APPR UNI/BI Tubal ligation PAST SURGICAL HISTORY OF foot surgery x 3 PAST SURGICAL HISTORY OF eyelid surgery bilat PAST SURGICAL HISTORY OF Right 2016 eye surgery for ambliopia PAST SURGICAL HISTORY OF Right 02/25/2022 trigger release on ring finger REVISE MEDIAN N/CARPAL TUNNEL SURG Left 09/09/2022 SIGMOIDOSCOPY FLX DX W/COLLJ SPEC BR/WA IF PFRMD 05/30/2000 Sigmoidoscopy SLING OPER STRES INCONTINENCE SLING OPER STRES INCONTINENCE 2000 STRESS TEST (EXERCISE) TREADMILL 09/29/2018 negative Family History FAMILY HISTORY Problem Relation Age of Onset other (lymphoma) Mother Diabetes Sister Hypertension Sister Diabetes Brother Heart Father Stroke Father Heart Brother Hypertension Brother Breast Cancer Maternal Grandmother No Known Problems Daughter No Known Problems Daughter No Known Problems Son Breast Cancer Paternal Aunt Patient Allergies ALLERGIES No Known Allergies Current Medications Current Outpatient Medications on File Prior to Visit Medication Sig omeprazole (PRILOSEC) 40 mg capsule Take 1 capsule by mouth twice daily. 1/2 hr before meal. valACYclovir (VALTREX) 500 mg tablet Take 1 tablet by mouth twice daily for 3 days ondansetron orally disintegrating (ZOFRAN ODT) 4 mg disintegrating tablet Take 1 tablet by mouth every 6 hours as needed for nausea/vomiting. calcium carbonate/vitamin D3 (CALTRATE 600 + D ORAL) Take by mouth. ergocalciferol, vitamin D2, (VITAMIN D2 ORAL) Take by mouth. MULTIVITAMIN TAB Take one(1) tablet daily. No current facility-administered medications on file prior to visit. Social History Social History Tobacco Use Smoking status: Never Smokeless tobacco: Never Vaping Use Vaping Use: Never used Substance Use Topics Alcohol use: Yes Comment: socially Drug use: No Review of Symptoms REVIEW OF SYSTEMS GENERAL: No weight loss, malaise or fevers NECK: Negative for lumps, goiter, pain and significant neck swelling RESPIRATORY: Negative for cough, hemoptysis, wheezing, COPD, dyspnea or shortness of breath CARDIOVASCULAR: Negative for chest pain, leg swelling, CHF or palpitations NEURO: No history of headaches, syncope, paralysis, seizures or tremors EXAM: BP 136/80 (BP Site: Right Arm, BP Position: Sitting, BP Cuff Size: Large Adult) Pulse 82 Temp 36.1 ?C (97 ?F) Resp 16 Wt 79.4 kg (175 lb) BMI 33.61 kg/m? General Appearance: Well appearing, alert, in no acute distress, well-hydrated, well nourished.. Neck: Supple, no adenopathy; thyroid symmetric, normal size, no bruits. Lungs: Lungs clear to auscultation. No wheezing, rhonchi, rales.. Heart: RRR without murmur, gallop, or rubs. No ectopy. Extremities: No deformities, edema, skin discoloration, clubbing or cyanosis. Good capillary refill. . Peripheral Pulses: Normal. Health Ma (more content not included)... [facility] 06-18-2022 Note HNO ID: [id number] Author: Virgilio Rojas MD Service: ? Author Type: Physician Type: Progress Notes Filed: 06/18/2022 4:35 PM Note Text: Chief Complaint No chief complaint on file. HPI Sugar Cooney is a 82 year old female who presents here today for 2 month follow up on GERD.. Any improvement? yes Still nauseated? Has not had any further nausea or vomiting episodes. No stomach pains. Denies any known side affects. Visit: 04/19/2022 On occasion she gets nauseated after going to bed and sometimes she will vomiting. No RUQ pain. Stools are softer. No changes in stool color. Has not noted that her stools float frequently. Was started on Omeprazole 40 mg daily. Patient with Hx vasomotor rhinitis, genitale herpies, plantar fascitis, osteoporosis, Aortic regurge mild. as well as thoes reviewed and addressed below and in ROS. Past medical history, appointments, medications, allergies reviewed. Previous Medical History PAST MEDICAL HISTORY Diagnosis Date Acid reflux Advance directive discussed with patient 04/19/2022 Discussed 03/2022: Need to bring in copies Age related osteoporosis 12/01/2016 Started forteo 02/2016 (needs to be on for 2 yrs) Breast cyst 07/11/2011 Chronic serous otitis media Diffuse cystic mastopathy Diverticulosis of colon Diverticulosis of colon (without mention of hemorrhage) Edema Elevated blood sugar 04/17/2021 GERD without esophagitis 09/09/2020 [place]'s disease 03/17/2020 Dr. Meeks, benign skin rash chest and back Herpes simplex infection of genitourinary system 01/25/2017 Herpes zoster without mention of complication shingles Lazy eye of right side 03/17/2020 Since . Living will in place 04/19/2022 DPA: Clifford () Nonrheumatic aortic valve insufficiency 12/24/2017 US 11/2017 mild Plantar fascial fibromatosis Vasomotor rhinitis 12/01/2016 Previous Surgical History PAST SURGICAL HISTORY Procedure Laterality Date 2D ECHO (EXEP) 11/2017 EF=71%, mild LA dilated, mild AR, 2D ECHO (EXEP) 09/2020 EF=65%, 1+ MR and AR, mild champagne dysf, unchanged from 2018 APPENDECTOMY BUNIONECTOMY, LAPIDUS-TYPE bilat feet CARPAL TUNNEL 04/2010 right CATARACT EXTRACTION HX Left 07/24/2018 COLONOSCOPY FLX DX W/COLLJ SPEC WHEN PFRMD 08/16/2007 repeat 10 ys COLONOSCOPY FLX DX W/COLLJ SPEC WHEN PFRMD 12/29/2017 Colonoscopy LIG/TRNSXJ FLP TUBE ABDL/VAG APPR UNI/BI Tubal ligation PAST SURGICAL HISTORY OF foot surgery x 3 PAST SURGICAL HISTORY OF eyelid surgery bilat PAST SURGICAL HISTORY OF Right 2016 eye surgery for ambliopia PAST SURGICAL HISTORY OF Right 02/25/2022 trigger release on ring finger SIGMOIDOSCOPY FLX DX W/COLLJ SPEC BR/WA IF PFRMD 05/30/2000 Sigmoidoscopy SLING OPER STRES INCONTINENCE SLING OPER STRES INCONTINENCE 2000 STRESS TEST (EXERCISE) TREADMILL 09/29/2018 negative Family History FAMILY HISTORY Problem Relation Age of Onset other (lymphoma) Mother Diabetes Sister Hypertension Sister Diabetes Brother Heart Father Stroke Father Heart Brother Hypertension Brother Breast Cancer Maternal Grandmother No Known Problems Daughter No Known Problems Daughter No Known Problems Son Breast Cancer Paternal Aunt Patient Allergies ALLERGIES No Known Allergies Current Medications Current Outpatient Medications on File Prior to Visit Medication Sig omeprazole (PRILOSEC) 40 mg capsule Take 1 capsule by mouth twice daily. 1/2 hr before meal. valACYclovir (VALTREX) 500 mg tablet Take 1 tablet by mouth twice daily for 3 days ondansetron orally disintegrating (ZOFRAN ODT) 4 mg disintegrating tablet Take 1 tablet by mouth every 6 hours as needed for nausea/vomiting. calcium carbonate/vitamin D3 (CALTRATE 600 + D ORAL) Take by mouth. ergocalciferol, vitamin D2, (VITAMIN D2 ORAL) Take by mouth. MULTIVITAMIN TAB Take one(1) tablet daily. No current facility-administered medications on file prior to visit. Social History Social History Tobacco Use Smoking status: Never Smokeless tobacco: Never Substance Use Topics Alcohol use: Yes Comment: socially Drug use: No Review of Symptoms REVIEW OF SYSTEMS See HPI EXAM: BP 122/74 Pulse 80 Resp 14 Wt 82.1 kg (181 lb) BMI 34.77 kg/m? General Appearance: Well appearing, alert, in no acute distress, well-hydrated, well nourished.. Abdomen: Normal abdominal exam, Abdomen soft, non-tender. Bowel sounds normal. No masses, organomegaly. Health Maintenance List DTAP,TDAP,TD(2 - Td or Tdap) due on 04/19/2023 DIABETES SCREEN due on 04/12/2025 BONE DENSITY Completed INFLUENZA Completed ADVANCE DIRECTIVE DISCUSSION Completed DEPRESSION ASSESSMENT Completed SHINGRIX VACCINE Completed COVID-19 VACCINE Completed PNEUMOCOCCAL: 65+ Completed Data reviewed A/P ASSESSMENT/PLAN: 1. GERD without esophagitis - ICD9: 530.81, ICD10: K21.9 - Continue treatment with Prilosec 40 mg BID - did discuss st (more content not included)... [facility] 06-18-2022 History of Present illness Narrative Chief Complaint No chief complaint on file. HPI Sugar Cooney is a 82 year old female who presents here today for 2 month follow up on GERD.. Any improvement? yes Still nauseated? Has not had any further nausea or vomiting episodes. No stomach pains. Denies any known side affects. Visit: 04/19/2022 On occasion she gets nauseated after going to bed and sometimes she will vomiting. No RUQ pain. Stools are softer. No changes in stool color. Has not noted that her stools float frequently. Was started on Omeprazole 40 mg daily. Patient with Hx vasomotor rhinitis, genitale herpies, plantar fascitis, osteoporosis, Aortic regurge mild. as well as thoes reviewed and addressed below and in ROS. Past medical history, appointments, medications, allergies reviewed. Previous Medical History PAST MEDICAL HISTORY Diagnosis Date Acid reflux Advance directive discussed with patient 04/19/2022 Discussed 03/2022: Need to bring in copies Age related osteoporosis 12/01/2016 Started forteo 02/2016 (needs to be on for 2 yrs) Breast cyst 07/11/2011 Chronic serous otitis media Diffuse cystic mastopathy Diverticulosis of colon Diverticulosis of colon (without mention of hemorrhage) Edema Elevated blood sugar 04/17/2021 GERD without esophagitis 09/09/2020 [place]'s disease 03/17/2020 Dr. Meeks, benign skin rash chest and back Herpes simplex infection of genitourinary system 01/25/2017 Herpes zoster without mention of complication shingles Lazy eye of right side 03/17/2020 Since . Living will in place 04/19/2022 DPA: Clifford () Nonrheumatic aortic valve insufficiency 12/24/2017 US 11/2017 mild Plantar fascial fibromatosis Vasomotor rhinitis 12/01/2016 Previous Surgical History PAST SURGICAL HISTORY Procedure Laterality Date 2D ECHO (EXEP) 11/2017 EF=71%, mild LA dilated, mild AR, 2D ECHO (EXEP) 09/2020 EF=65%, 1+ MR and AR, mild champagne dysf, unchanged from 2018 APPENDECTOMY BUNIONECTOMY, LAPIDUS-TYPE bilat feet CARPAL TUNNEL 04/2010 right CATARACT EXTRACTION HX Left 07/24/2018 COLONOSCOPY FLX DX W/COLLJ SPEC WHEN PFRMD 08/16/2007 repeat 10 ys COLONOSCOPY FLX DX W/COLLJ SPEC WHEN PFRMD 12/29/2017 Colonoscopy LIG/TRNSXJ FLP TUBE ABDL/VAG APPR UNI/BI Tubal ligation PAST SURGICAL HISTORY OF foot surgery x 3 PAST SURGICAL HISTORY OF eyelid surgery bilat PAST SURGICAL HISTORY OF Right 2016 eye surgery for ambliopia PAST SURGICAL HISTORY OF Right 02/25/2022 trigger release on ring finger SIGMOIDOSCOPY FLX DX W/COLLJ SPEC BR/WA IF PFRMD 05/30/2000 Sigmoidoscopy SLING OPER STRES INCONTINENCE SLING OPER STRES INCONTINENCE 2000 STRESS TEST (EXERCISE) TREADMILL 09/29/2018 negative Family History FAMILY HISTORY Problem Relation Age of Onset other (lymphoma) Mother Diabetes Sister Hypertension Sister Diabetes Brother Heart Father Stroke Father Heart Brother Hypertension Brother Breast Cancer Maternal Grandmother No Known Problems Daughter No Known Problems Daughter No Known Problems Son Breast Cancer Paternal Aunt Patient Allergies ALLERGIES No Known Allergies Current Medications Current Outpatient Medications on File Prior to Visit Medication Sig omeprazole (PRILOSEC) 40 mg capsule Take 1 capsule by mouth twice daily. 1/2 hr before meal. valACYclovir (VALTREX) 500 mg tablet Take 1 tablet by mouth twice daily for 3 days ondansetron orally disintegrating (ZOFRAN ODT) 4 mg disintegrating tablet Take 1 tablet by mouth every 6 hours as needed for nausea/vomiting. calcium carbonate/vitamin D3 (CALTRATE 600 + D ORAL) Take by mouth. ergocalciferol, vitamin D2, (VITAMIN D2 ORAL) Take by mouth. MULTIVITAMIN TAB Take one(1) tablet daily. No current facility-administered medications on file prior to visit. Social History Social History Tobacco Use Smoking status: Never Smokeless tobacco: Never Substance Use Topics Alcohol use: Yes Comment: socially Drug use: No Review of Symptoms REVIEW OF SYSTEMS See HPI EXAM: BP 122/74 Pulse 80 Resp 14 Wt 82.1 kg (181 lb) BMI 34.77 kg/m General Appearance: Well appearing, alert, in no acute distress, well-hydrated, well nourished.. Abdomen: Normal abdominal exam, Abdomen soft, non-tender. Bowel sounds normal. No masses, organomegaly. Health Maintenance List DTAP,TDAP,TD(2 - Td or Tdap) due on 04/19/2023 DIABETES SCREEN due on 04/12/2025 BONE DENSITY Completed INFLUENZA Completed ADVANCE DIRECTIVE DISCUSSION Completed DEPRESSION ASSESSMENT Completed SHINGRIX VACCINE Completed COVID-19 VACCINE Completed PNEUMOCOCCAL: 65+ Completed Data reviewed A/P ASSESSMENT/PLAN: 1. GERD without esophagitis - ICD9: 530.81, ICD10: K21.9 - Continue treatment with Prilosec 40 mg BID - did discuss stoping the evening dose of omeprazole and doing Pepcid 40 mg in the evening and patient prefers to stay on the omeprazole 40 BID. Patient to keep f/u appt in September Virgilio Rojas MD documented in this encounter [facility] 04-19-2022 Note HNO ID: [id number] Author: Virgilio Rojas MD Service: ? Author Type: Physician Type: Progress Notes Filed: 04/19/2022 6:19 PM Note Text: Medicare Yearly Visit Medical B eligibilty date not able to find Date of last exam 04/17/2021 PAST MEDICAL HISTORY PAST MEDICAL HISTORY Diagnosis Date Acid reflux Age related osteoporosis 12/01/2016 Started forteo 02/2016 (needs to be on for 2 yrs) Breast cyst 07/11/2011 Chronic serous otitis media Diffuse cystic mastopathy Diverticulosis of colon (without mention of hemorrhage) Edema Herpes simplex infection of genitourinary system 01/25/2017 Herpes zoster without mention of complication shingles Nonrheumatic aortic valve insufficiency 12/24/2017 US 11/2017 mild Plantar fascial fibromatosis Pure hypercholesterolemia Snoring Vasomotor rhinitis 12/01/2016 PAST SURGICAL HISTORY PAST SURGICAL HISTORY Procedure Laterality Date 2D ECHO (EXEP) 11/2017 EF=71%, mild LA dilated, mild AR, APPENDECTOMY BUNIONECTOMY, LAPIDUS-TYPE bilat feet CARPAL TUNNEL 05/08 right CATARACT EXTRACTION HX Left 07/24/2018 COLONOSCOP W/ OR W/O [facility] SPEC 08/16/2007 repeat 10 ys COLONOSCOP W/ OR W/O BRS SPEC 12/29/2017 Colonoscopy LIGATE FALLOPIAN TUBE Tubal ligation PAST SURGICAL HISTORY OF foot surgery x 3 PAST SURGICAL HISTORY OF eyelid surgery bilat PAST SURGICAL HISTORY OF Right 2016 eye surgery for ambliopia SIGMOIDOSCOPY FLEX DIAG 05/30/2000 Sigmoidoscopy SLING OPER STRES INCONTINENCE SLING OPER STRES INCONTINENCE 2000 STRESS TEST (EXERCISE) TREADMILL 09/29/2018 negative Patient has no known allergies. Medications reviewed: Yes FAMILY HISTORY FAMILY HISTORY Problem Relation Age of Onset other (lymphoma) Mother Diabetes Sister Hypertension Sister Diabetes Brother Heart Father Stroke Father Heart Brother Hypertension Brother Breast Cancer Maternal Grandmother No Known Problems Daughter No Known Problems Daughter No Known Problems Son Breast Cancer Paternal Aunt SOCIAL HISTORY: Social History Socioeconomic History Marital status: Spouse name: Not on file Number of children: Not on file Years of education: Not on file Highest education level: Not on file Occupational History Not on file Social Needs Financial resource strain: Not on file Food insecurity: Worry: Not on file Inability: Not on file Transportation needs: Medical: Not on file Non-medical: Not on file Tobacco Use Smoking status: Never Smoker Smokeless tobacco: Never Used Substance and Sexual Activity Alcohol use: Yes Comment: socially Drug use: No Sexual activity: Yes Partners: Male control/protection: Tubal Ligation Lifestyle Physical activity: Days per week: Not on file Minutes per session: Not on file Stress: Not on file Relationships Social connections: Talks on phone: Not on file Gets together: Not on file Attends hindu service: Not on file Active member of club or organization: Not on file Attends meetings of clubs or organizations: Not on file Relationship status: Not on file Intimate partner violence: Fear of current or ex partner: Not on file Emotionally abused: Not on file Physically abused: Not on file Forced sexual activity: Not on file Other Topics Concerns: Not on file Social History Narrative Not on file Sugar works out regularly walking every other day and doing water aerobics a few days a week. She watches her diet for sodium, low fat and low cholesterol all of the time. List of current specialists seen: none End of Live Planning discussed including patients advanced directive wishes: Yes I am willing to follow Sugar's advanced directives. PHQ-2 / Depression screen Depression Screening 12/06/2017 12/14/2018 10/08/2020 04/19/2022 PHQ-2 Score 0 0 0 0 ELIZABETH-2 Total Score 0 - - - Depression screening tool completed and reviewed. Based on score and interview, patient is not at risk for depression. Screening tool discussed with patient, and I recommended no further intervention at this time. Functional Ability/Safety Screen 1. Was the patient's timed Up and Go test unsteady or longer than 30 seconds? Yes 2. Does the patient need help with the phone, transportation, shopping,preparing meals, housework, laundry, medications or managing money? No 3. Does your home have rugs in the hallway, lack of grab bars in the bathroom, lack of handrails on the stairs or have poor lighting? No Hearing Evaluation: normal PHYSICAL EXAM BP 120/80 (BP Site: Left Arm, BP Position: Sitting, BP Cuff Size: Large Adult) Pulse 72 Resp 16 Ht 153.7 cm (5' 0.5 ) Wt 81.6 kg (180 lb) BMI 34.58 kg/m? Alert and oriented X 3: YES Body mass index is 34.58 kg/m?. See below ASSESSMENT/PLAN: 82 year old female The following prevention plan was discussed during the office visit and provided to the patient: See below Virgilio Rojas MD (more content not included)... [facility] 04-19-2022 Instructions Virgilio Rojas MD - 04/19/2022 1:31 PM EST Please bring in copies of living will and durable power of assistant district attorney for health care. Please get labs and urine test done on or after 10/08/2022 prior to your next visit. documented in this encounter [facility] 04-19-2022 History of Present illness Narrative Medicare Yearly Visit Medical B eligibilty date not able to find Date of last exam 04/17/2021 PAST MEDICAL HISTORY PAST MEDICAL HISTORY Diagnosis Date Acid reflux Age related osteoporosis 12/01/2016 Started forteo 02/2016 (needs to be on for 2 yrs) Breast cyst 07/11/2011 Chronic serous otitis media Diffuse cystic mastopathy Diverticulosis of colon (without mention of hemorrhage) Edema Herpes simplex infection of genitourinary system 01/25/2017 Herpes zoster without mention of complication shingles Nonrheumatic aortic valve insufficiency 12/24/2017 US 11/2017 mild Plantar fascial fibromatosis Pure hypercholesterolemia Snoring Vasomotor rhinitis 12/01/2016 PAST SURGICAL HISTORY PAST SURGICAL HISTORY Procedure Laterality Date 2D ECHO (EXEP) 11/2017 EF=71%, mild LA dilated, mild AR, APPENDECTOMY BUNIONECTOMY, LAPIDUS-TYPE bilat feet CARPAL TUNNEL 05/08 right CATARACT EXTRACTION HX Left 07/24/2018 COLONOSCOP W/ OR W/O BRS SPEC 08/16/2007 repeat 10 ys COLONOSCOP W/ OR W/O BRSH SPEC 12/29/2017 Colonoscopy LIGATE FALLOPIAN TUBE Tubal ligation PAST SURGICAL HISTORY OF foot surgery x 3 PAST SURGICAL HISTORY OF eyelid surgery bilat PAST SURGICAL HISTORY OF Right 2016 eye surgery for ambliopia SIGMOIDOSCOPY FLEX DIAG 05/30/2000 Sigmoidoscopy SLING OPER STRES INCONTINENCE SLING OPER STRES INCONTINENCE 2000 STRESS TEST (EXERCISE) TREADMILL 09/29/2018 negative Patient has no known allergies. Medications reviewed: Yes FAMILY HISTORY FAMILY HISTORY Problem Relation Age of Onset other (lymphoma) Mother Diabetes Sister Hypertension Sister Diabetes Brother Heart Father Stroke Father Heart Brother Hypertension Brother Breast Cancer Maternal Grandmother No Known Problems Daughter No Known Problems Daughter No Known Problems Son Breast Cancer Paternal Aunt SOCIAL HISTORY: Social History Socioeconomic History Marital status: Spouse name: Not on file Number of children: Not on file Years of education: Not on file Highest education level: Not on file Occupational History Not on file Social Needs Financial resource strain: Not on file Food insecurity: Worry: Not on file Inability: Not on file Transportation needs: Medical: Not on file Non-medical: Not on file Tobacco Use Smoking status: Never Smoker Smokeless tobacco: Never Used Substance and Sexual Activity Alcohol use: Yes Comment: socially Drug use: No Sexual activity: Yes Partners: Male control/protection: Tubal Ligation Lifestyle Physical activity: Days per week: Not on file Minutes per session: Not on file Stress: Not on file Relationships Social connections: Talks on phone: Not on file Gets together: Not on file Attends hindu service: Not on file Active member of club or organization: Not on file Attends meetings of clubs or organizations: Not on file Relationship status: Not on file Intimate partner violence: Fear of current or ex partner: Not on file Emotionally abused: Not on file Physically abused: Not on file Forced sexual activity: Not on file Other Topics Concerns: Not on file Social History Narrative Not on file Sugar works out regularly walking every other day and doing water aerobics a few days a week. She watches her diet for sodium, low fat and low cholesterol all of the time. List of current specialists seen: none End of Live Planning discussed including patients advanced directive wishes: Yes I am willing to follow Sugar's advanced directives. PHQ-2 / Depression screen Depression Screening 12/06/2017 12/14/2018 10/08/2020 04/19/2022 PHQ-2 Score 0 0 0 0 ELIZABETH-2 Total Score 0 - - - Depression screening tool completed and reviewed. Based on score and interview, patient is not at risk for depression. Screening tool discussed with patient, and I recommended no further intervention at this time. Functional Ability/Safety Screen 1. Was the patient's timed Up and Go test unsteady or longer than 30 seconds? Yes 2. Does the patient need help with the phone, transportation, shopping,preparing meals, housework, laundry, medications or managing money? No 3. Does your home have rugs in the hallway, lack of grab bars in the bathroom, lack of handrails on the stairs or have poor lighting? No Hearing Evaluation: normal PHYSICAL EXAM BP 120/80 (BP Site: Left Arm, BP Position: Sitting, BP Cuff Size: Large Adult) Pulse 72 Resp 16 Ht 153.7 cm (5' 0.5 ) Wt 81.6 kg (180 lb) BMI 34.58 kg/m Alert and oriented X 3: YES Body mass index is 34.58 kg/m . See below ASSESSMENT/PLAN: 82 year old female The following prevention plan was discussed during the office visit and provided to the patient: See below Virgilio Rojas MD Chief Complaint Patient presents with: Medicare Wellness Exam HPI Sugar Cooney is a 82 year old female who presents here today for Extensive Visit. Patient with Hx vasomotor rhinitis, genitale herpies, plantar fascitis, osteoporosis, Aortic regurge mild. as well as thoes reviewed and addressed below and in ROS. Patient has been doing well. No new issues or concerns. Past medical history, appointments, medications, allergies reviewed. Previous Medical History PAST MEDICAL HISTORY Diagnosis Date Acid reflux Age related osteoporosis 12/01/2016 Started forteo 02/2016 (needs to be on for 2 yrs) Breast cyst 07/11/2011 Chronic serous otitis media Diffuse cystic mastopathy Diverticulosis of colon Diverticulosis of colon (without mention of hemorrhage) Edema Elevated blood sugar 04/17/2021 GERD without esophagitis 09/09/2020 [place]'s disease 03/17/2020 Dr. Meeks, benign skin rash chest and back Herpes simplex infection of genitourinary system 01/25/2017 Herpes zoster without mention of complication shingles Lazy eye of right side 03/17/2020 Since . Nonrheumatic aortic valve insufficiency 12/24/2017 US 11/2017 mild Plantar fascial fibromatosis Vasomotor rhinitis 12/01/2016 Previous Surgical History PAST SURGICAL HISTORY Procedure Laterality Date 2D ECHO (EXEP) 11/2017 EF=71%, mild LA dilated, mild AR, 2D ECHO (EXEP) 09/2020 EF=65%, 1+ MR and AR, mild champagne dysf, unchanged from 2018 APPENDECTOMY BUNIONECTOMY, LAPIDUS-TYPE bilat feet CARPAL TUNNEL 04/2010 right CATARACT EXTRACTION HX Left 07/24/2018 COLONOSCOPY FLX DX W/COLLJ SPEC WHEN PFRMD 08/16/2007 repeat 10 ys COLONOSCOPY FLX DX W/COLLJ SPEC WHEN PFRMD 12/29/2017 Colonoscopy LIG/TRNSXJ FLP TUBE ABDL/VAG APPR UNI/BI Tubal ligation PAST SURGICAL HISTORY OF foot surgery x 3 PAST SURGICAL HISTORY OF eyelid surgery bilat PAST SURGICAL HISTORY OF Right 2016 eye surgery for ambliopia SIGMOIDOSCOPY FLX DX W/COLLJ SPEC BR/WA IF PFRMD 05/30/2000 Sigmoidoscopy SLING OPER STRES INCONTINENCE SLING OPER STRES INCONTINENCE 2000 STRESS TEST (EXERCISE) TREADMILL 09/29/2018 negative Family History FAMILY HISTORY Problem Relation Age of Onset other (lymphoma) Mother Diabetes Sister Hypertension Sister Diabetes Brother Heart Father Stroke Father Heart Brother Hypertension Brother Breast Cancer Maternal Grandmother No Known Problems Daughter No Known Problems Daughter No Known Problems Son Breast Cancer Paternal Aunt Patient Allergies ALLERGIES No Known Allergies Current Medications Current Outpatient Medications on File Prior to Visit Medication Sig omeprazole (PRILOSEC) 40 mg capsule Take 1 capsule by mouth once daily. 1/2 hr before meal. valACYclovir (VALTREX) 500 mg tablet Take 1 tablet by mouth twice daily for 3 days ondansetron orally disintegrating (ZOFRAN ODT) 4 mg disintegrating tablet Take 1 tablet by mouth every 6 hours as needed for nausea/vomiting. hydroCHLOROthiazide 12.5 mg capsule Take 1 capsule by mouth once daily. As needed for leg swelling. calcium carbonate/vitamin D3 (CALTRATE 600 + D ORAL) Take by mouth. ergocalciferol, vitamin D2, (VITAMIN D2 ORAL) Take by mouth. MULTIVITAMIN TAB Take one(1) tablet daily. No current facility-administered medications on file prior to visit. Social History Social History Tobacco Use Smoking status: Never Smokeless tobacco: Never Substance Use Topics Alcohol use: Yes Comment: socially Drug use: No Review of Symptoms REVIEW OF SYSTEMS GENERAL: No weight loss, malaise or fevers HEENT: Negative for frequent or significant headaches, No changes in hearing or vision, no nose bleeds or other nasal problems NECK: Negative for lumps, goiter, pain and significant neck swelling RESPIRATORY: Negative for cough, hemoptysis, wheezing, COPD, dyspnea or shortness of breath CARDIOVASCULAR: Negative for chest pain, leg swelling, hypertension, CHF or palpitations GI: No diarrhea, No heartburn or reflux symptoms, and no blood. On occasion she gets nauseated after going to bed and sometimes she will vomiting. No RUQ pain. Stools are softer. No changes in stool color. Has not noted that her stools float frequently. : No history of dysuria, blood MUSCULOSKELETAL: Negative for new or changes in her typical joint pain or swelling, back pain or muscle pain SKIN: Negative for lesions, rash, and itching PSYCH: Negative for sleep disturbance, mood disorder and recent psychosocial stressors HEMATOLOGY/LYMPHOLOGY: Negative for prolonged bleeding, bruising easily or swollen nodes ENDOCRINE: Negative for cold or heat intolerance, polyuria, polydipsia and goiter NEURO: No history of headaches, syncope, paralysis, seizures or tremors EXAM: BP 120/80 (BP Site: Left Arm, BP Position: Sitting, BP Cuff Size: Large Adult) Pulse 72 Resp 16 Ht 153.7 cm (5' 0.5 ) Wt 81.6 kg (180 lb) BMI 34.58 kg/m Last 5 Encounter Wt Readings: Date: Wt: 04/19/2022 81.6 kg (180 lb) 09/16/2021 79.4 kg (175 lb) 08/27/2021 80.6 kg (177 lb 9.6 oz) 06/22/2021 83.5 kg (184 lb) 04/17/2021 83.5 kg (184 lb) General Appearance: Well appearing, alert, in no acute distress, well-hydrated, well nourished. and Obese. Skin: Skin color, texture, turgor normal, no suspicious rashes or lesions. Head: Normocephalic, no masses, lesions, tenderness or abnormalities. Eyes: Anicteric sclera. Pupils are equally round and reactive to light. Extraocular movements are intact. . Ears: External ears, TM's normal, canals clear. Neck: Supple, no adenopathy; thyroid symmetric, normal size, no bruits. Lungs: Lungs clear to auscultation. No wheezing, rhonchi, rales.. Heart: RRR without murmur, gallop, or rubs. No ectopy. Abdomen: Normal abdominal exam, Abdomen soft, non-tender. Bowel sounds normal. No masses, organomegaly. Extremities: No deformities, edema, skin discoloration, . Good capillary refill. . Musculoskeletal: No joint swelling, deformity, or tenderness. Muscle strength normal. Peripheral Pulses: Normal. Neurologic: Gait normal. Reflexes normal and symmetric. Sensation to light touch and crainal nerves 2-12 intact.. Health Maintenance List DTAP,TDAP,TD(2 - Td or Tdap) due on 12/14/2020 ADVANCE DIRECTIVE DISCUSSION Never done DEPRESSION ASSESSMENT Never done DIABETES SCREEN due on 04/12/2025 BONE DENSITY Completed INFLUENZA Completed SHINGRIX VACCINE Completed COVID-19 VACCINE Completed PNEUMOCOCCAL: 65+ Completed Data reviewed Component Latest Ref Rng & Units 04/09/2021 04/12/2022 WBC 3.70 - 11.00 k/uL 5.73 6.66 RBC 3.90 - 5.20 m/uL 4.47 4.95 Hemoglobin 11.5 - 15.5 g/dL 13.8 15.0 Hematocrit 36.0 - 46.0 % 42.4 46.4 (H) MCV 80.0 - 100.0 fL 94.9 93.7 MCH 26.0 - 34.0 pg 30.9 30.3 MCHC 30.5 - 36.0 g/dL 32.5 32.3 RDW-CV 11.5 - 15.0 % 12.4 12.7 Platelet Count 150 - 400 k/uL 230 263 MPV 9.0 - 12.7 fL 9.7 9.5 Neut% % 51.1 42.7 Abs Neut (ANC) 1.45 - 7.50 k/uL 2.92 2.85 Lymph% % 38.9 47.4 Abs Lymph 1.00 - 4.00 k/uL 2.23 3.16 [place]% % 7.0 6.5 Abs [place] <0.87 k/uL 0.40 0.43 Eosin% % 2.3 2.3 Abs Eosin <0.46 k/uL 0.13 0.15 Baso% % 0.7 0.8 Abs Baso <0.11 k/uL 0.04 0.05 Immature Gran % % 0.3 IMMATURE GRANS (ABS) <0.10 k/uL <0.03 NRBC /100 WBC 0.0 Absolute nRBC <0.01 k/uL <0.01 <0.01 DTYPE Auto Nucleated Reds 0 /100 WBC 0.0 Diff Type Auto Diff Protein, Total 6.3 - 8.0 g/dL 5.7 (L) 6.7 Albumin 3.9 - 4.9 g/dL 3.9 4.2 Calcium 8.5 - 10.2 mg/dL 9.0 9.7 Bilirubin, Total 0.2 - 1.3 mg/dL 0.6 0.7 Alkaline Phosphatase 34 - 123 U/L 75 70 AST 13 - 35 U/L 11 (L) 17 Glucose 74 - 99 mg/dL 108 (H) 106 (H) BUN 7 - 21 mg/dL 14 12 Creatinine 0.58 - 0.96 mg/dL 0.62 0.68 Sodium 136 - 144 mmol/L 139 142 Potassium 3.7 - 5.1 mmol/L 3.8 4.5 Chloride 97 - 105 mmol/L 106 (H) 104 CO2 22 - 30 mmol/L 24 28 Anion Gap 9 - 18 mmol/L 9 10 ALT 7 - 38 U/L 9 12 eGFR- >60 eGFR-All Other Races . >60 eGFR >=60 mL/min/1.73m 88 Total Cholesterol, Nonfasting <200 mg/dL Test sent to [facility] [place]. Triglycerides, Nonfasting <150 mg/dL Test sent to [facility] [place]. HDL Cholesterol, Nonfasting >39 mg/dL Test sent to [facility] [place]. LDL Cholesterol, Nonfasting <100 mg/dL Test sent to [facility] [place]. Non HDL Cholesterol, Nonfasting <130 mg/dL Test sent to [facility] [place]. VLDL Cholesterol, Nonfasting <30 mg/dL Test sent to [facility] [place]. Total Chol/HDL Ratio, Nonfasting <5.10 mg/dL Test sent to [facility] [place]. LDL/HDL Ratio, Nonfasting <2.54 mg/dL Test sent to [facility] [place]. Hemoglobin A1C 4.3 - 5.6 % 5.3 Estimated Average Glucose mg/dL 105 Vitamin B12 232 - 1,245 pg/mL 507 Magnesium 1.7 - 2.3 mg/dL 2.1 A/P ASSESSMENT/PLAN: 1. Medicare annual wellness visit, subsequent - ICD9: V70.0, ICD10: Z00.00 (primary diagnosis) - Counseled on healthy diet and regular exercise - Calcium intake with supplements or by diet of 1000 mg/day for under 50, 3209-5420 mg/day for 50+ - Discussed need and benefit for weight loss. BMI 34.58 kg/(m^2) - Follow up for annual exam in one year 2. GERD without esophagitis - ICD9: 530.81, ICD10: K21.9 - Begin treatment with Prilosec 40 mg BID to see if the nocturnal symptoms of nausea and vomiting stop. - patient to f/u in 2 months if better will see if we can stop the evening omeprazole and change to Pepcid 40 mg QHS. If symptoms no better will pursue a gallbladder w/u 3. Elevated blood sugar - ICD9: 790.29, ICD10: R73.9 - good control with life style changes. 4. Nonrheumatic aortic valve insufficiency - ICD9: 424.1, ICD10: I35.1 - clinically stable no changes. 5. Edema, unspecified type - ICD9: 782.3, ICD10: R60.9 - stable 6. Diverticulosis of colon - ICD9: 562.10, ICD10: K57.30 - no active issues. 7. Herpes simplex infection of genitourinary system - ICD9: 008.69, 054.79, ICD10: A60.00 - cont valtrex as needed. 8. Advance directive discussed with patient - ICD9: V65.49, ICD10: Z71.89 - patient to bring in copies. Requested Prescriptions Signed Prescriptions Disp Refills omeprazole (PRILOSEC) 40 mg capsule 60 capsule 5 Sig: Take 1 capsule by mouth twice daily. 1/2 hr before meal. F/u 2 months GERD F/u 6 months routine check A1c prior I spent a total of 40 minutes on the date of the service which included preparing to see the patient, [id number] patient care, completing clinical documentation, performing a medically appropriate examination, counseling and educating the patient/family/caregiver and ordering medications, tests, or procedures. Virgilio Rojas MD documented in this encounter [facility] 01-15-2022 Miscellaneous Notes The following approved medication requests have been transmitted electronically. Requested Prescriptions Signed Prescriptions Disp Refills omeprazole (PRILOSEC) 40 mg capsule 30 capsule 5 Sig: Take 1 capsule by mouth once daily. 1/2 hr before meal. Authorizing Provider: VIRGILIO ROJAS MD Patient has been identified by name and date of : Yes Requested Prescriptions Pending Prescriptions Disp Refills omeprazole (PRILOSEC) 40 mg capsule 30 capsule 5 Sig: Take 1 capsule by mouth once daily. 1/2 hr before meal. RX INSTRUCTIONS: Patient aware RX will be sent to pharmacy. No need to notify patient. Yaa Muñoz MA Saul: 08/2021 Nov: 03/2022 Last refill; 05/2021 Patient has been identified by name and date of : Yes Patient phones for refill(s): Requested Prescriptions Pending Prescriptions Disp Refills omeprazole (PRILOSEC) 40 mg capsule 30 capsule 5 Sig: Take 1 capsule by mouth once daily. 1/2 hr before meal. Date of last office visit in primary care: 09/16/21 Last 2 Encounter Wt Readings: Date: Wt: 09/16/2021 79.4 kg (175 lb) 08/27/2021 80.6 kg (177 lb 9.6 oz) Previous labs/tests for medication: Not applicable Please advise. Thank you. Courtney De La Garza documented in this encounter [facility] 09-16-2021 History of Present illness Narrative Chief Complaint Patient presents with: F/U 6 months HPI Sugar Cooney is a 81 year old female who presents here today for 6 month follow up. Patient with Hx vasomotor rhinitis, genitale herpies, plantar fascitis, osteoporosis, Aortic regurge mild. as well as thoes reviewed and addressed below and in ROS. Patient has been doing nutri system and has lost 5 lbs. Over all has been feeling well. No issues or concerns Past medical history, appointments, medications, allergies reviewed. 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 Nonrheumatic aortic valve insufficiency 12/24/2017 US 11/2017 mild Plantar fascial fibromatosis Vasomotor rhinitis 12/01/2016 Previous Surgical History PAST SURGICAL HISTORY Procedure Laterality Date 2D ECHO (EXEP) 11/2017 EF=71%, mild LA dilated, mild AR, 2D ECHO (EXEP) 09/2020 EF=65%, 1+ MR and AR, mild champagne dysf, unchanged from 2018 APPENDECTOMY BUNIONECTOMY, LAPIDUS-TYPE bilat feet CARPAL TUNNEL 04/2010 right CATARACT EXTRACTION HX Left 07/24/2018 COLONOSCOPY FLX DX W/COLLJ SPEC WHEN PFRMD 08/16/2007 repeat 10 ys COLONOSCOPY FLX DX W/COLLJ SPEC WHEN PFRMD 12/29/2017 Colonoscopy LIG/TRNSXJ FLP TUBE ABDL/VAG APPR UNI/BI Tubal ligation PAST SURGICAL HISTORY OF foot surgery x 3 PAST SURGICAL HISTORY OF eyelid surgery bilat PAST SURGICAL HISTORY OF Right 2016 eye surgery for ambliopia SIGMOIDOSCOPY FLX DX W/COLLJ SPEC BR/WA IF PFRMD 05/30/2000 Sigmoidoscopy SLING OPER STRES INCONTINENCE SLING OPER STRES INCONTINENCE 2000 STRESS TEST (EXERCISE) TREADMILL 09/29/2018 negative Family History FAMILY HISTORY Problem Relation Age of Onset other (lymphoma) Mother Diabetes Sister Hypertension Sister Diabetes Brother Heart Father Stroke Father Heart Brother Hypertension Brother Breast Cancer Maternal Grandmother No Known Problems Daughter No Known Problems Daughter No Known Problems Son Breast Cancer Paternal Aunt Patient Allergies ALLERGIES No Known Allergies Current Medications Current Outpatient Medications on File Prior to Visit Medication Sig triamcinolone (KENALOG) 0.025 % cream Apply 1 application to affected area twice daily. valACYclovir (VALTREX) 500 mg tablet Take 1 tablet by mouth twice daily for 3 days omeprazole (PRILOSEC) 40 mg capsule Take 1 capsule by mouth once daily. 1/2 hr before meal. ondansetron orally disintegrating (ZOFRAN ODT) 4 mg disintegrating tablet Take 1 tablet by mouth every 6 hours as needed for nausea/vomiting. hydroCHLOROthiazide 12.5 mg capsule Take 1 capsule by mouth once daily. As needed for leg swelling. calcium carbonate/vitamin D3 (CALTRATE 600 + D ORAL) Take by mouth. ergocalciferol, vitamin D2, (VITAMIN D2 ORAL) Take by mouth. MULTIVITAMIN TAB Take one(1) tablet daily. Current Facility-Administered Medications on File Prior to Visit Medication perflutren lipid microspheres 1.3 mL in NaCl (PF) 0.9% 10 mL injection (DEFINITY) sodium chloride 0.9 % (flush) 10 mL (BD POSIFLUSH) Social History Social History Tobacco Use Smoking status: Never Smoker Smokeless tobacco: Never Used Substance Use Topics Alcohol use: Yes Comment: socially Drug use: No Review of Symptoms REVIEW OF SYSTEMS GENERAL: No unintentional weight loss, malaise or fevers NECK: Negative for lumps, goiter, pain and significant neck swelling RESPIRATORY: Negative for cough, hemoptysis, wheezing, COPD, dyspnea or shortness of breath CARDIOVASCULAR: Negative for chest pain, leg swelling, hypertension, CHF or palpitations GI: No nausea, vomiting, or diarrhea and No heartburn or reflux symptoms NEURO: No history of headaches, syncope, paralysis, seizures or tremors EXAM: BP 120/72 (BP Site: Left Arm, BP Position: Sitting, BP Cuff Size: Regular Adult) Pulse 76 Resp 16 Wt 79.4 kg (175 lb) BMI 33.47 kg/m Last 4 Encounter Wt Readings: Date: Wt: 09/16/2021 79.4 kg (175 lb) 08/27/2021 80.6 kg (177 lb 9.6 oz) 06/22/2021 83.5 kg (184 lb) 04/17/2021 83.5 kg (184 lb) General Appearance: Well appearing, alert, in no acute distress, well-hydrated, well nourished.. Ears: External ears normal, canals clear. Neck: Supple, no adenopathy; thyroid symmetric, normal size, no bruits. Lungs: Lungs clear to auscultation. No wheezing, rhonchi, rales.. Heart: RRR without murmur, gallop, or rubs. No ectopy. Abdomen: Normal abdominal exam, Abdomen soft, non-tender. Bowel sounds normal. No masses, organomegaly. Extremities: No deformities, edema, skin discoloration, Peripheral Pulses: Normal. Health Maintenance List ADVANCE DIRECTIVE DISCUSSION Never done DTAP,TDAP,TD(2 - Td or Tdap) due on 04/17/2022 DEPRESSION SCREENING due on 10/08/2021 DIABETES SCREEN due on 09/14/2024 BONE DENSITY Completed INFLUENZA Completed SHINGRIX VACCINE Completed COVID-19 VACCINE Completed PNEUMOCOCCAL: 65+ Completed Data reviewed Component Latest Ref Rng & Units 09/14/2021 Hemoglobin A1C 4.3 - 5.6 % 5.5 Estimated Average Glucose mg/dL 111 A/P ASSESSMENT/PLAN: 1. Nonrheumatic aortic valve insufficiency - ICD9: 424.1, ICD10: I35.1 (primary diagnosis) - Clinically doing well no issues or changes needed. 2. GERD without esophagitis - ICD9: 530.81, ICD10: K21.9 - Continue treatment with Prilosec 40 mg QD 3. Edema, unspecified type - ICD9: 782.3, ICD10: R60.9 - None on exam today 4. Herpes simplex infection of genitourinary system - ICD9: 008.69, 054.79, ICD10: A60.00 - Cont valtrex as needed. F/u 6 months extensive check CMP, A1c, Lipid, B12, Mg, CBC prior Virgilio Rojas MD documented in this encounter [facility] 08-27-2021 History of Present illness Narrative Images from the original note were not included. Subjective HPI Sugar Cooney is a 81 year old female who presents with a rash. She is concerned it may be shingles. It has been present for one week. The rash is itchy and red. It has the following distribution: 2 spots on right forearm 1 spot on right side of chin Patchy area on right flank 2 spots on left ankle She denies any known allergen exposure. She has not used any treatment at home for this problem. Review of Systems Constitutional: Negative for chills and fever. Musculoskeletal: Negative for myalgias. Skin: Positive for itching and rash. BP 110/64 Pulse (!) 56 Temp (!) 35.9 C (96.7 F) Resp 21 Wt 80.6 kg (177 lb 9.6 oz) SpO2 97% BMI 33.97 kg/m PAST MEDICAL HISTORY Diagnosis Date Acid reflux Age related osteoporosis 12/01/2016 Started forteo 02/2016 (needs to be on for 2 yrs) Breast cyst 07/11/2011 Chronic serous otitis media Diffuse cystic mastopathy Diverticulosis of colon Diverticulosis of colon (without mention of hemorrhage) Edema GERD without esophagitis 09/09/2020 [place]'s disease 03/17/2020 Dr. Meeks, benign skin rash chest and back Herpes simplex infection of genitourinary system 01/25/2017 Herpes zoster without mention of complication shingles Lazy eye of right side 03/17/2020 Since . Nonrheumatic aortic valve insufficiency 12/24/2017 US 11/2017 mild Plantar fascial fibromatosis Vasomotor rhinitis 12/01/2016 PAST SURGICAL HISTORY Procedure Laterality Date 2D ECHO (EXEP) 11/2017 EF=71%, mild LA dilated, mild AR, 2D ECHO (EXEP) 09/2020 EF=65%, 1+ MR and AR, mild champagne dysf, unchanged from 2018 APPENDECTOMY BUNIONECTOMY, LAPIDUS-TYPE bilat feet CARPAL TUNNEL 04/2010 right CATARACT EXTRACTION HX Left 07/24/2018 COLONOSCOPY FLX DX W/COLLJ SPEC WHEN PFRMD 08/16/2007 repeat 10 ys COLONOSCOPY FLX DX W/COLLJ SPEC WHEN PFRMD 12/29/2017 Colonoscopy LIG/TRNSXJ FLP TUBE ABDL/VAG APPR UNI/BI Tubal ligation PAST SURGICAL HISTORY OF foot surgery x 3 PAST SURGICAL HISTORY OF eyelid surgery bilat PAST SURGICAL HISTORY OF Right 2016 eye surgery for ambliopia SIGMOIDOSCOPY FLX DX W/COLLJ SPEC BR/WA IF PFRMD 05/30/2000 Sigmoidoscopy SLING OPER STRES INCONTINENCE SLING OPER STRES INCONTINENCE 2000 STRESS TEST (EXERCISE) TREADMILL 09/29/2018 negative ALLERGIES Patient has no known allergies. MEDICATIONS valACYclovir (VALTREX) 500 mg tablet Take 1 tablet by mouth twice daily for 3 days omeprazole (PRILOSEC) 40 mg capsule Take 1 capsule by mouth once daily. 1/2 hr before meal. ondansetron orally disintegrating (ZOFRAN ODT) 4 mg disintegrating tablet Take 1 tablet by mouth every 6 hours as needed for nausea/vomiting. hydroCHLOROthiazide 12.5 mg capsule Take 1 capsule by mouth once daily. As needed for leg swelling. calcium carbonate/vitamin D3 (CALTRATE 600 + D ORAL) Take by mouth. ergocalciferol, vitamin D2, (VITAMIN D2 ORAL) Take by mouth. MULTIVITAMIN TAB Take one(1) tablet daily. triamcinolone (KENALOG) 0.025 % cream Apply 1 application to affected area twice daily. predniSONE (DELTASONE) 10 mg tablet Take 4 tabs daily for 3 days, then 2 tabs daily for 3 days, then 1 tab daily for 3 days with food. FAMILY HISTORY Problem Relation Age of Onset other (lymphoma) Mother Diabetes Sister Hypertension Sister Diabetes Brother Heart Father Stroke Father Heart Brother Hypertension Brother Breast Cancer Maternal Grandmother No Known Problems Daughter No Known Problems Daughter No Known Problems Son Breast Cancer Paternal Aunt Social History Tobacco Use Smoking status: Never Smoker Smokeless tobacco: Never Used Substance Use Topics Alcohol use: Yes Comment: socially Drug use: No Objective Physical Exam Vitals and nursing note reviewed. Constitutional: Appearance: Normal appearance. Cardiovascular: Rate and Rhythm: Normal rate. Pulmonary: Effort: Pulmonary effort is normal. Skin: General: Skin is warm and dry. Findings: Erythema and rash present. Neurological: Mental Status: She is alert. ASSESSMENT/PLAN: 1. Allergic rash present on examination - ICD9: 995.3, ICD10: T78.40XA - TRIAMCINOLONE ACETONIDE 0.025 % TOPICAL CREAM - use cream for 24 hours, then if not improving you may take the prednisone pills. - PREDNISONE 10 MG TABLET - Follow-up with your PCP in 3-5 days if symptoms have not improved or sooner if symptoms worsen - Discussed red flags and need for immediate medical evaluation if any occur. - Discussed supportive care treatment with fluids, rest and analgesia. - Discussed expected course of illness Marilyn Rubi APRN.CNP documented in this encounter [facility] 08-27-2021 Instructions Marilyn Rubi APRN.CNP - 08/27/2021 8:35 AM EDT ASSESSMENT/PLAN: 1. Allergic rash present on examination - ICD9: 995.3, ICD10: T78.40XA - TRIAMCINOLONE ACETONIDE 0.025 % TOPICAL CREAM - use cream for 24 hours, then if not improving you may take the prednisone pills. - PREDNISONE 10 MG TABLET - Follow-up with your PCP in 3-5 days if symptoms have not improved or sooner if symptoms worsen - Discussed red flags and need for immediate medical evaluation if any occur. - Discussed supportive care treatment with fluids, rest and analgesia. - Discussed expected course of illness Marilyn Rubi APRN.CNP NONSPECIFIC RASH: Our exam shows you have a rash which has no clear cause. Rashes can result from infections, allergies, or irritation of the skin by chemicals or other environmental factors. Rashes can also result from scratching or rubbing the skin too much to relieve itching. Further medical examination may be needed to identify the specific cause and proper treatment of your skin rash. You should treat your rash as recommended by your doctor. If you have itching, you should avoid scratching as much as possible, as this further damages the skin. Ask your doctor or pharmacist if you have any questions about what topical medicines may help relieve your symptoms. Call your doctor right away if your rash is not better in 2-3 days, if it worsens, or if there are signs of infection (increased pain, redness, drainage or pus). documented in this encounter [facility] 07-28-2021 Miscellaneous Notes Pharmacy verified in [facility] Patient has been identified by name and date of : Yes Patient aware RX will be sent to pharmacy. No need to notify patient. Patient phones for refill(s): Pending Prescriptions Disp Refills VALACYCLOVIR 500 MG TABLET 6 tablet 5 Sig: Take 1 tablet by mouth twice daily for 3 days SANTOS: No Date of last office visit : 06/22/2021 Date of next office visit : 09/16/2021 Last 2 Encounter Wt Readings: Date: Wt: 06/22/2021 83.5 kg (184 lb) 04/17/2021 83.5 kg (184 lb) Please advise. Irina Hernandez Pss documented in this encounter [facility] 06-22-2021 History of Present illness Narrative Chief Complaint Patient presents with: ER F/U: [facility] elevated heart rate HPI Sugar Cooney is a 81 year old female who presents here today for ER Follow Up.. On 06/14 patient noticed that while at latter day she started to feel like her heart was racing. Had small amount of tightness and pressure. Symptoms improved some but continued to have some fatigue. She had similar symptoms in Oct 2020 and had a full cardiac work up at that time that was benign. She denies any continued symptoms. No shortness of breath. Did have some GERD with nausea followed by 1 episode of vomiting on 06/19. [place] better 06/20. ER work up benign. EKG showed elevated HR and PAC but otherwise normal. D-dimer was elevated (was also elevated in 11/15) so CT was completed and negative. Other Labs including TSH were normal. Past medical history, appointments, medications, allergies reviewed. 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 Nonrheumatic aortic valve insufficiency 12/24/2017 US 11/2017 mild Plantar fascial fibromatosis Vasomotor rhinitis 12/01/2016 Previous Surgical History PAST SURGICAL HISTORY Procedure Laterality Date 2D ECHO (EXEP) 11/2017 EF=71%, mild LA dilated, mild AR, 2D ECHO (EXEP) 09/2020 EF=65%, 1+ MR and AR, mild champagne dysf, unchanged from 2018 APPENDECTOMY BUNIONECTOMY, LAPIDUS-TYPE bilat feet CARPAL TUNNEL 04/2010 right CATARACT EXTRACTION HX Left 07/24/2018 COLONOSCOPY FLX DX W/COLLJ SPEC WHEN PFRMD 08/16/2007 repeat 10 ys COLONOSCOPY FLX DX W/COLLJ SPEC WHEN PFRMD 12/29/2017 Colonoscopy LIG/TRNSXJ FLP TUBE ABDL/VAG APPR UNI/BI Tubal ligation PAST SURGICAL HISTORY OF foot surgery x 3 PAST SURGICAL HISTORY OF eyelid surgery bilat PAST SURGICAL HISTORY OF Right 2016 eye surgery for ambliopia SIGMOIDOSCOPY FLX DX W/COLLJ SPEC BR/WA IF PFRMD 05/30/2000 Sigmoidoscopy SLING OPER STRES INCONTINENCE SLING OPER STRES INCONTINENCE 2000 STRESS TEST (EXERCISE) TREADMILL 09/29/2018 negative Family History FAMILY HISTORY Problem Relation Age of Onset other (lymphoma) Mother Diabetes Sister Hypertension Sister Diabetes Brother Heart Father Stroke Father Heart Brother Hypertension Brother Breast Cancer Maternal Grandmother No Known Problems Daughter No Known Problems Daughter No Known Problems Son Breast Cancer Paternal Aunt Patient Allergies ALLERGIES No Known Allergies Current Medications Current Outpatient Medications on File Prior to Visit Medication Sig ondansetron orally disintegrating (ZOFRAN ODT) 4 mg disintegrating tablet Take 1 tablet by mouth every 6 hours as needed for nausea/vomiting. hydroCHLOROthiazide 12.5 mg capsule Take 1 capsule by mouth once daily. As needed for leg swelling. omeprazole (PRILOSEC) 40 mg capsule Take 1 capsule by mouth once daily. 1/2 hr before meal. valACYclovir (VALTREX) 500 mg tablet Take 1 tablet by mouth twice daily for 3 days calcium carbonate/vitamin D3 (CALTRATE 600 + D ORAL) Take by mouth. ergocalciferol, vitamin D2, (VITAMIN D2 ORAL) Take by mouth. MULTIVITAMIN TAB Take one(1) tablet daily. Current Facility-Administered Medications on File Prior to Visit Medication perflutren lipid microspheres 1.3 mL in NaCl (PF) 0.9% 10 mL injection (DEFINITY) sodium chloride 0.9 % (flush) 10 mL (BD POSIFLUSH) Social History Social History Tobacco Use Smoking status: Never Smoker Smokeless tobacco: Never Used Substance Use Topics Alcohol use: Yes Comment: socially Drug use: No Review of Symptoms REVIEW OF SYSTEMS see hpi EXAM: BP 110/60 (BP Site: Right Arm, BP Position: Sitting, BP Cuff Size: Large Adult) Pulse 78 Temp 36.5 C (97.7 F) Resp 16 Wt 83.5 kg (184 lb) BMI 35.19 kg/m General Appearance: Well appearing, alert, in no acute distress, well-hydrated, well nourished.. Neck: Supple, no adenopathy; thyroid symmetric, normal size, no bruits. Lungs: Lungs clear to auscultation. No wheezing, rhonchi, rales.. Heart: RRR. No ectopy. Extremities: No deformities, edema, skin discoloration, clubbing or cyanosis. Good capillary refill. . Peripheral Pulses: Normal. Health Maintenance List ADVANCE DIRECTIVE DISCUSSION Never done DTAP,TDAP,TD(2 - Td or Tdap) due on 04/17/2022 DEPRESSION SCREENING due on 10/08/2021 DIABETES SCREEN due on 04/09/2024 BONE DENSITY Completed INFLUENZA Completed PNEUMOVAX AGE 65 AND OVER WITH 5YR LOOKBACK Completed SHINGRIX VACCINE Completed COVID-19 VACCINE Completed MENINGOCOCCAL CONJUGATE Aged Out Data reviewed ASSESSMENT/PLAN: 1. Palpitations - ICD9: 785.1, ICD10: R00.2 (primary diagnosis) Given that patient had a normal cardiac workup approx 6 months ago, will continue to monitor. However if symptoms continue to return, we may need cardiac consult or repeat testing completed. Discussed possible red flags and when to seek medical attention. 2. Nonrheumatic aortic valve insufficiency - ICD9: 424.1, ICD10: I35.1 stable 3. GERD without esophagitis - ICD9: 530.81, ICD10: K21.9 - stable Maria Dolores Garcia PA-C documented in this encounter [facility] documented as of this encounter (statuses as of 06/22/2021) [address]05-2016 History of Past illness Narrative* Problem Noted Date Resolved Date Urinary complications 12/31/2015 documented as of this encounter (statuses as of 07/28/2021) [address]-2016 History of Past illness Narrative* Problem Noted Date Resolved Date Urinary complications 12/31/2015 documented as of this encounter (statuses as of 08/27/2021) [address]-2016 History of Past illness Narrative* Problem Noted Date Resolved Date Urinary complications 12/31/2015 documented as of this encounter (statuses as of 09/17/2021) [address]2016 History of Past illness Narrative* Problem Noted Date Resolved Date Urinary complications 12/31/2015 documented as of this encounter (statuses as of 01/15/2022) [address]-2016 History of Past illness Narrative* Problem Noted Date Resolved Date Urinary complications 12/31/2015 documented as of this encounter (statuses as of 04/20/2022) [address]-2016 History of Past illness Narrative* Problem Noted Date Resolved Date Urinary complications 12/31/2015 documented as of this encounter (statuses as of 06/18/2022) [address]2016 History of Past illness Narrative* Problem Noted Date Diagnosed Date Resolved Date Urinary complications 2015 documented as of this encounter (statuses as of 10/22/2022) [facility] Diagnosis Palpitations- Primary Nonrheumatic aortic valve insufficiency Aortic valve disorders GERD without esophagitis Esophageal reflux [facility] Allergic rash present on examination- Primary [facility] Diagnosis Nonrheumatic aortic valve insufficiency- Primary Aortic valve disorders GERD without esophagitis Esophageal reflux Edema, unspecified type Herpes simplex infection of genitourinary system Medication management Encounter for long-term (current) use of other medications Elevated blood sugar Other abnormal glucose [facility] Diagnosis Medicare annual wellness visit, subsequent- Primary Routine general medical examination at a [facility] care facility GERD without esophagitis Esophageal reflux Elevated blood sugar Other abnormal glucose Nonrheumatic aortic valve insufficiency Aortic valve disorders Edema, unspecified type Diverticulosis of colon Diverticulosis of colon (without mention of hemorrhage) Herpes simplex infection of genitourinary system Advance directive discussed with patient Other specified counseling [facility] Diagnosis GERD without esophagitis- Primary Esophageal reflux documented in this encounter [facility] note* Diagnosis Swelling of right hand- Primary Thumb pain, right documented in this encounter [facility]* Name Dates Details Patient Instructions Indication:Benign essential hypertension Start:13-Apr-2016 Instruction Type:Provider Instructions for Treatment How to access health informa tion online Indication:Impaired fasting glucose Start:13-Apr-2016 Instruction Type:Patient Education How to access health informa tion online - Detail Indication:Impaired fasting glucose Start:13-Apr-2016 Instruction Type:Patient Education Patient Instructions Indication:Impaired fasting glucose Start:13-Apr-2016 Instruction Type:Provider Instructions for Treatment How to access health informa tion online Indication:Impaired fasting glucose Start:16-Dec-2015 Instruction Type:Patient Education How to access health informa tion online - Detail Indication:Impaired fasting glucose Start:16-Dec-2015 Instruction Type:Patient Education Patient Instructions Indication:Impaired fasting glucose Start:16-Dec-2015 Instruction Type:Provider Instructions for Treatment How to access health informa tion online Indication:Preop examination Start:12-Nov-2015 Instruction Type:Patient Education How to access health informa tion online - Detail Indication:Preop examination Start:12-Nov-2015 Instruction Type:Patient Education Patient Instructions Indication:Bradycardia Start:12-Nov-2015 Instruction Type:Provider Instructions for Treatment How to access health informa tion online Indication:Impaired fasting glucose Start:11-Jun-2015 Instruction Type:Patient Education How to access health informa tion online - Detail Indication:Impaired fasting glucose Start:11-Jun-2015 Instruction Type:Patient Education Patient Instructions Indication:Impaired fasting glucose Start:11-Jun-2015 Instruction Type:Provider Instructions for Treatment How to access health informa tion online Indication:High potassium Start:03-Jun-2015 Instruction Type:Patient Education How to access health informa tion online - Detail Indication:High potassium Start:03-Jun-2015 Instruction Type:Patient Education Patient Instructions Indication:High potassium Start:03-Jun-2015 Instruction Type:Provider Instructions for Treatment How to access health informa tion online Indication:Encounter for Medicare annual wellness exam Start:11-Dec-2014 Instruction Type:Patient Education How to access health informa tion online - Detail Indication:Encounter for Medicare annual wellness exam Start:11-Dec-2014 Instruction Type:Patient Education Patient Instructions Indication:Encounter for Medicare annual wellness exam Start:11-Dec-2014 Instruction Type:Provider Instructions for Treatment How to access health informa tion online Indication:Benign essential hypertension Start:14-Oct-2014 Instruction Type:Patient Education How to access health informa tion online - Detail Indication:Benign essential hypertension Start:14-Oct-2014 Instruction Type:Patient Education Patient Instructions Indication:Benign essential hypertension Start:14-Oct-2014 Instruction Type:Provider Instructions for Treatment Patient Instructions Indication:Impaired fasting glucose Start:11-Sep-2014 Instruction Type:Provider Instructions for Treatment Patient Instructions Indication:Other chest pain Start:01-Apr-2014 Instruction Type:Provider Instructions for Treatment Patient Instructions Indication:Other chest pain Start:06-Mar-2014 Instruction Type:Provider Instructions for Treatment Patient Instructions Indication:Other chest pain Start:25-Feb-2014 Instruction Type:Provider Instructions for Treatment Patient Instructions Indication:Polyuria Start:21-Sep-2013 Instruction Type:Provider Instructions for Treatment Patient Instructions Indication:Polyuria Start:10-Sep-2013 Instruction Type:Provider Instructions for Treatment Patient Instructions Indication:Urinary frequency Start:26-Jul-2013 Instruction Type:Provider Instructions for Treatment obesity counseling Indication:BMI 37.0-37.9, adult Start:18-Jul-2013 Instruction Type:Provider Instructions for Treatment Patient Instructions Indication:Encounter for Medicare annual wellness exam Start:18-Jul-2013 Instruction Type:Provider Instructions for Treatment Patient Instructions Indication:Upper Respiratory Infection (Renamed from Infection of the upper respiratory tract) Start:04-Jul-2013 Instruction Type:Provider Instructions for Treatment Patient Instructions Indication:Impaired fasting glucose Start:01-Jun-2013 Instruction Type:Provider Instructions for Treatment Patient Instructions Indication:Leg pain, left Start:06-Feb-2013 Instruction Type:Provider Instructions for Treatment Patient Instructions Indication:Need for prophylactic vaccination and inoculation against influenza Start:01-Jan-2013 Instruction Type:Provider Instructions for Treatment Patient Instructions Indication:Impaired fasting glucose Start:12-Jul-2012 Instruction Type:Provider Instructions for Treatment Patient Instructions Indication:Benign essential hypertension Start:08-Mar-2012 Instruction Type:Provider Instructions for Treatment [facility] Work Phone: reason for referral (narrative)* Diagnostic Procedure Only (Urgent) - Closed Specialty Diagnoses / Procedures Referred By Contac t Referred To Contact XR IMAGING Diagnoses Thumb pain, right Procedures XR DIGIT GENERAL 3V FRONTAL/LAT/OBL RIGHT RADEX FINGR MINIMUM 2 VIEWS Farzana Larsen APRN.ASPHALT TAMPER [address] [place] [address] Xr Imaging Referral ID Status Reason Start Date Expiration Date V isits Requested Visits Authorized [id number] Closed Auto-Generate d Referral 10/22/2022 11/21/2023 1 1 * Diagnostic Procedure Only (Urgent) - Closed Specialty Diagnoses / Procedures Referred By Contac t Referred To Contact XR IMAGING Diagnoses Swelling of right hand Procedures XR HAND GENERAL 3V PA/LAT/OBL RIGHT RADEX HAND MINIMUM 3 VIEWS Farzana Larsen APRN.[employer]PH[employer] TAMPER [address] [place] [address] Xr Imaging Referral ID Status Reason Start Date Expiration Date V isits Requested Visits Authorized [id number] Closed Auto-Generate d Referral 10/22/2022 11/21/2023 1 1 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 anation Advance Directive(s) 12/29/2017 8:25 AM Documents on File Type Date Recorded Patient Catalog Library Assistant Expl anation Advance Directive(s) 05/10/2022 9:16 AM Documents on File Type Date Recorded Patient Catalog Library Assistant Expl anation Advance Directive(s) 05/10/2022 9:16 AM Additional Source Comments INFORMATION SOURCE (unrecogn ized section and content) DATE CREATED AUTHOR AUTHOR'S ORGANMARIELLE ATION 10/22/2022 [facility] Source Comments (unrecognize d section and content) In the event this informatio n is protected by the Federal Confidentiality of Alcohol and Drug Abuse Patient Records regulations: The Federal rules restrict any use of the information to criminally investigate or prosecute any alcohol or drug abuse patient.[facility] the event this information is protected by the Federal Confidentiality of Alcohol and Drug Abuse Patient Records regulations: The Federal rules restrict any use of the information to criminally investigate or prosecute any alcohol or drug abuse patient.[facility] the event this information is protected by the Federal Confidentiality of Alcohol and Drug Abuse Patient Records regulations: The Federal rules restrict any use of the information to criminally investigate or prosecute any alcohol or drug abuse patient.[facility] the event this information is protected by the Federal Confidentiality of Alcohol and Drug Abuse Patient Records regulations: The Federal rules restrict any use of the information to criminally investigate or prosecute any alcohol or drug abuse patient.[facility] the event this information is protected by the Federal Confidentiality of Alcohol and Drug Abuse Patient Records regulations: The Federal rules restrict any use of the information to criminally investigate or prosecute any alcohol or drug abuse patient.[facility] the event this information is protected by the Federal Confidentiality of Alcohol and Drug Abuse Patient Records regulations: The Federal rules restrict any use of the information to criminally investigate or prosecute any alcohol or drug abuse patient.[facility] the event this information is protected by the Federal Confidentiality of Alcohol and Drug Abuse Patient Records regulations: The Federal rules restrict any use of the information to criminally investigate or prosecute any alcohol or drug abuse patient.[facility] the event this information is protected by the Federal Confidentiality of Alcohol and Drug Abuse Patient Records regulations: The Federal rules restrict any use of the information to criminally investigate or prosecute any alcohol or drug abuse patient.[facility] Reason for Visit (unrecogniz ed section and content) Reason Onset Date Comments Refill Request 07/28/2021 Reason Comments Acute Visit possible shingles x 1week Reason Comments F/U 6 months Reason Onset Date Comments Refill Request 01/15/2022 Reason Comments Medicare Wellness Exam Reason Comments Recheck 2 months GERD medica tion Reason Comments Hand Pain right hand pain and swelling x 5 days, denies injury Care Teams (unrecognized sec tion and content) Board Hammer Operator Relationship Specialty Start Date End Date Virgilio Rojas MD [address] [place] [address] PCP - General Family Practice 12/01/16 Board Hammer Operator Relationship Specialty Start Date End Date Virgilio Rojas MD [address] [place] [address] PCP - General Family Practice 12/01/16 Board Hammer Operator Relationship Specialty Start Date End Date Virgilio Rojas MD [address] [place] [address] PCP - General Family Practice 12/01/16 Board Hammer Operator Relationship Specialty Start Date End Date Virgilio Rojas MD [address] [place] [address] PCP - General Family Medicine 12/01/16 Board Hammer Operator Relationship Specialty Start Date End Date Virgilio Rojas MD [address] [place] [id number] PCP - General Family Medicine 12/01/16 Board Hammer Operator Relationship Specialty Start Date End Date Virgilio Rojas MD [address] [place] [address] PCP - General Family Medicine 12/01/16 FOR RECORDS PERTAINING TO PATIENTS WHO ARE OR HAVE BEEN ENROLLED IN A CHEMICAL DEPENDENCY/SUBSTANCEABUSE PROGRAM, SOME INFORMATION MAY BE OMITTED. This clinical summary was aggregated from multiple sources. Caution should be exercised in using it in the provision of clinical care. This summary normalizes information from multiple sources, and as a consequence, information in this document may materially change the coding, format and clinical context of patient data. In addition, data may be omitted in some cases. CLINICAL DECISIONS SHOULD BE BASED ON THE PRIMARY CLINICAL RECORDS. [employer] provides no warranty or guarantee of the accuracy or completeness of information in this document.
== END | disposition home or self-care (01) ==
LOC: OPBD 15:09
PROVIDERS: PCP Internal Medicine; Referring Provider Internal Medicine; Visit Provider Internal Medicine
DX: Z12.31 Encounter for screening mammogram for malignant neoplasm of breast (principal); Z78.0 Asymptomatic menopausal state
CPT/HCPCS: 77063; 77067; 77080

== ENCOUNTER → 2023-06-07 | Outpatient (CLI) | payer MEDICARE, SELFPAY ==
--- NOTE | 2023-06-07 15:57 | ECHOD_ITS ---
Reason For Study: AORTIC INSUFFICIENCY Procedure This was a 2D Doppler, Color Flow transthoracic echocardiogram. Exam performed in department. Left Ventricle Normal LV size. The estimated ejection fraction is 60 %. No evidence for diastolic dysfunction. No regional wall motion abnormalities noted. Right Ventricle Normal RV size. Normal systolic function. Atria The left and right atria are normal. No doppler evidence for ASD. Mitral Valve There is no mitral valve stenosis. Trivial mitral valve insufficiency. Tricuspid Valve There is no tricuspid stenosis. Trivial tricuspid valve insufficiency. Pulmonary artery systolic pressure is 35-40 mmHg. Aortic Valve Trisinus/trileaflet aortic valve. There is no aortic stenosis. Mild (1+) aortic valve insufficiency. Pulmonic Valve There is no pulmonic valvular stenosis. No pulmonic valve insufficiency. Great Vessels Normal aortic root. Pericardium/Pleural No pericardial effusion. MMode/2D Measurements & Calculations LVIDd: 4.6 cm IVSd: 0.72 cm LAV(MOD-bp): 54.0 ml LVIDs: 2.7 cm LVPWd: 0.93 cm LAV(MOD-bp) Indexed: 31.0 ml/m2 RVDd: 2.9 cm FS: 42.2 % LAV(MOD-sp2): 44.7 ml LAV(MOD-sp4): 60.9 ml SV(MOD-sp4): 42.4 ml LVAd ap4: 25.5 cm2 LVAd ap2: 22.0 cm2 LVLd ap4: 7.3 cm LVLd ap2: 6.7 cm EDV(MOD-sp4): 73.4 ml EDV(MOD-sp2): 62.3 ml EDV(sp4-el): 76.0 ml EDV(sp2-el): 60.8 ml LVAs ap4: 15.0 cm2 LVAs ap2: 12.0 cm2 LVLs ap4: 6.4 cm LVLs ap2: 5.6 cm ESV(MOD-sp4): 31.0 ml ESV(MOD-sp2): 22.6 ml ESV(sp4-el): 29.6 ml ESV(sp2-el): 22.1 ml EF(MOD-sp4): 57.7 % EF(MOD-sp2): 63.7 % EF(sp4-el): 61.1 % SV(MOD-sp2): 39.7 ml SV(sp4-el): 46.4 ml LA A4 area: 21.0 cm2 LA dimension(2D): 4.0 cm TAPSE: 2.6 cm RA A4 area: 18.0 cm2 Time Measurements MV dec time: 0.19 sec Doppler Measurements & Calculations MV E max quan: 67.0 cm/sec Lat Peak E' Quan: 9.0 cm/sec Med Peak E' Quan: 7.5 cm/sec MV A max quan: 83.5 cm/sec E/E' lat: 7.4 E/E' med: 8.9 MV E/A: 0.80 MV V2 max: 97.9 cm/sec MV P1/2t max quan: 74.0 cm/sec Ao V2 max: 177.0 cm/sec MV max P.8 mmHg MV P1/2t: 72.9 msec Ao max P.5 mmHg MV V2 mean: 42.0 cm/sec MV dec slope: 297.3 cm/sec2 Ao V2 mean: 122.7 cm/sec MV mean P.95 mmHg Ao mean P.8 mmHg MV V2 VTI: 26.9 cm MVA(P1/2t): 3.0 cm2 Ao V2 VTI: 43.9 cm AV (velocity ratio): 0.77 AI max quan: 382.7 cm/sec LV V1 max: 143.7 cm/sec PA V2 max: 86.3 cm/sec AI max P.6 mmHg LV V1 max P.3 mmHg PA V2 mean: 48.8 cm/sec AI dec slope: 182.9 cm/sec2 LV V1 mean P.3 mmHg AI P1/2t: 612.9 msec LV V1 mean: 98.4 cm/sec LV V1 VTI: 33.9 cm TR max quan: 291.1 cm/sec TR max P.9 mmHg ECHO/Echo Complete Interpretation Summary The estimated ejection fraction is 60 %. No evidence for diastolic dysfunction. Trivial mitral valve insufficiency. Mild (1+) aortic valve insufficiency. Ordering Physician: Catherine Magana Referring Physician: Catherine Magana Performed By: Mavis Love, CAYLA, RVT
== END | disposition home or self-care (01) ==
LOC: CVS 15:56
PROVIDERS: PCP Internal Medicine; Referring Provider Internal Medicine; Visit Provider Internal Medicine
DX: I35.1 Nonrheumatic aortic (valve) insufficiency (principal)
CPT/HCPCS: 93306

== ENCOUNTER → 2023-09-14 | Outpatient (CLI) | payer MEDICARE, SELFPAY ==
--- NOTE | 2023-09-14 16:21 | STRESSREP ---
Stress Test Report Exercise myocardial perfusion stress test. 83-year-old lady with a history of chest pain Stress protocol: Resting EKG demonstrates sinus bradycardia with a rate of 48 bpm resting blood pressure is 102/72 mmHg. The patient exercised according to the regular Marcel protocol for a total duration of 6 minutes attaining a maximum heart rate of 153 bpm which was 110% of maximum predicted heart rate; the maximum workload was 7 metabolic equivalents. At rest there were no ST or T wave changes noted to suggest ischemia and at peak exercise upsloping ST changes only were noted which did not meet the criteria for ischemia. No clinical angina was noted the test was terminated due to the target heart rate being achieved/fatigue. The peak blood pressure was 152/88 mmHg. Rate-pressure product was 22,000. Myocardial perfusion protocol. 11.7 mCi of technetium 99m sestamibi was injected at rest. The patient exercised according to regular Marcel protocol for total duration of 6 minutes and at peak exercise 34.1 mCi of technetium 99m sestamibi was injected stress images were obtained stress and rest images were reconstructed in comparing the short axis vertical long and horizontal long axis. Gated images were also obtained. Perfusion SPECT analysis: Review of the stress images demonstrate normal uptake of tracer noted in all areas of the myocardium. The resting images similarly demonstrate normal uptake of tracer noted in all areas of the myocardium. No areas of reversibility are noted to suggest ischemia no previous infarct was noted. Gated SPECT analysis: The gated ejection fraction is 67%. Conclusion: Normal exercise myocardial perfusion stress test at a moderate workload Preserved ejection fraction.
== END | disposition home or self-care (01) ==
PROVIDERS: PCP Internal Medicine; Referring Provider Internal Medicine; Visit Provider Internal Medicine
DX: R07.9 Chest pain, unspecified (principal)
CPT/HCPCS: 78452; 93017; A9500; A4216

== ENCOUNTER → 2023-09-16 | Outpatient (CLI) | payer MEDICARE, SELFPAY ==
--- NOTE | 2023-09-16 12:00 | RAD_ITS ---
INDICATION: HTN,PULMONARY EXAMINATION/TECHNIQUE: X-RAY - XR Chest 2 Views COMPARISON: No previous relevant examinations available for comparison.. FINDINGS: LIFE-SUPPORT AND LINES: 1. None HEART AND VESSELS: The cardiac silhouette, pulmonary vasculature have normal appearance. No evidence of congestive failure. LUNGS AND PLEURAL SPACES: Lungs are clear. No focal infiltrate, consolidation or effusions. No evidence of pneumothorax. No pulmonary mass is noted. MEDIASTINUM AND HILAR REGIONS: No masses adenopathy noted. No areas of calcification. Visualized upper airway is normal in position. BONY ELEMENTS: Mild thoracic scoliosis. No acute bony changes. RAD/Chest PA and Lateral IMPRESSION: 1. No evidence of acute cardiopulmonary process Electronically Signed: Moo Rubin MD at 19:28 EDT ,
[2023-09-16 14:04] LABS: BNP,B-Type NATRIURETIC PEPTIDE 60.8 pg/mL (0-100)
== END | disposition home or self-care (01) ==
LOC: LAB 11:27 → RAD 11:51
PROVIDERS: PCP Internal Medicine; Referring Provider Internal Medicine Pulmonary Disease; Visit Provider Internal Medicine Pulmonary Disease
DX: I27.20 Pulmonary hypertension, unspecified (principal)
CPT/HCPCS: 36415; 71046; 83880

== ENCOUNTER → 2024-02-21 | Outpatient (CLI) | payer MEDICARE, SELFPAY ==
--- NOTE | 2024-02-21 07:50 | US_ITS ---
EXAM: US Abdomen Limited (quadrant) INDICATION: Female, 84 years old. Nausea and vomiting TECHNIQUE: Griggs-scale and color Doppler imaging was performed of the abdomen COMPARISON: No relevant priors. FINDINGS: LIVER: The liver measures 13 cm in its mid clavicular line. Normal echogenicity and echotexture parenchyma. There is a 10 mm echogenic focus within the right hepatic lobe without posterior acoustic shadowing. No intrahepatic biliary duct dilatation.. . GALLBLADDER AND BILIARY TREE: Gallbladder demonstrates mild luminal distention without wall thickening or pericholecystic fluid. There is a solitary intraluminal stone measuring up to 2 cm in diameter. Ringdown artifact is noted from the gallbladder wall. Sonographic Craft sign is negative. Common bile duct measures 6 mm in diameter. No intraductal stone. PANCREAS: Pancreas is visualized and is normal. No peripancreatic fluid.. KIDNEYS: Right kidney measures 10.8 x 4.6 x 4.0 cm. Renal cortex measures 1.5 cm in thickness. No focal lesion. Normal parenchymal echogenicity. No visualized nephrolithiasis. No hydronephrosis. VESSELS: Abdominal aorta and inferior vena cava are obscured by overlying bowel gas. ASCITES: None US/Abdomen Limited IMPRESSION: 1. Cholelithiasis with no evidence of acute cholecystitis. 2. Adenomyomatosis of the gallbladder. 3. 10 mm hemangioma within the right inferior hepatic lobe. Electronically Signed: Louie Catalan MD at 2:18 EST ,
== END | disposition home or self-care (01) ==
PROVIDERS: PCP Internal Medicine; Referring Provider Internal Medicine; Visit Provider Internal Medicine
DX: R11.2 Nausea with vomiting, unspecified (principal)
CPT/HCPCS: 76705

== ENCOUNTER → 2024-03-29 | Outpatient (CLI) | payer MEDICARE, SELFPAY ==
--- NOTE | 2024-03-29 08:46 | NM_ITS ---
CLINICAL: 84-year-old female with history of chronic nausea and apparent documented cholelithiasis. RADIONUCLIDE HEPATOBILIARY SCINTIGRAPHY COMPARISON: Abdominal ultrasound report 02/21/2024 FINDINGS: Following the intravenous administration of 5.7 mCi of 99m Tc Mebrofenin, hepatobiliary images reveal: 1. Relatively prompt and homogeneous radiopharmaceutical concentration is noted by a normal sized liver. No parenchymal defects are identified. 2. Gallbladder activity is identified at 30 minutes post radiopharmaceutical administration. 3. Small intestinal tract is observed by 60 minutes post tracer injection. 4. Washout of the radiopharmaceutical by the hepatic parenchyma appears qualitatively normal. Cholecystokinin (0.02 ug/kg) was administered intravenously over a 30-minute period. The post CCK gallbladder ejection fraction calculated at 20 minutes following Cholecystokinin administration was noted to be 73.0 % (normal greater than 35%). During 30 minutes of post CCK imaging, there is no scintigraphic evidence of reflux of the radiotracer into the common hepatic duct or refilling of the gallbladder. HI/Hepatobilliary Img w/Pharm Int IMPRESSION: 1. NORMAL 99m Tc Mebrofenin hepatobiliary imaging examination with Cholecystokinin. A. A gallbladder ejection fraction calculated to be greater than 35% following the administration of Cholecystokinin makes the probability of functional hepatobiliary disease (gallbladder and/or sphincter of Oddi dyskinesia) and/or organic hepatobiliary disease (chronic acalculous cholecystitis and/or cystic duct syndrome) to be low. (Bridger Matthews et al, Journal of Nuclear Medicine 32:1695, 1991). Electronically Signed: Moo Farmer DO at 20:57 EST ,
== END | disposition home or self-care (01) ==
LOC: NM 08:45
PROVIDERS: PCP Internal Medicine; Referring Provider Surgery; Visit Provider Surgery
DX: K80.20 Calculus of gallbladder without cholecystitis without obstruction (principal)
CPT/HCPCS: 78227; A9537; J2805

== ENCOUNTER → 2024-04-02 | Outpatient (CLI) | payer MEDICARE, SELFPAY ==
--- NOTE | 2024-04-02 08:47 | BI_ITS ---
MAMMOGRAPHY - BILATERAL SCREENING REASON FOR EXAM: Female, 84 years old. Routine annual screening examination. PERTINENT HISTORY: Grandmother with breast cancer. Aunt with breast cancer. History of bilateral breast aspirations. TECHNIQUE: Digital bilateral breast shannan (3D mammographic acquisition) in the CC and MLO projections. 2-D mediolateral oblique (MLO) and craniocaudad (CC) views of both breasts were obtained. CAD: Full Field Digital Mammography with Computer Added Detection was performed. COMPARISON: Comparison is made with prior study dated March 31, 2023 and September 25, 2015. FINDINGS: Breast Composition: The breasts are heterogeneously dense, which may obscure small masses. Focal architectural distortion in the anterior upper aspect of the left breast as seen on the mediolateral oblique view. This most likely represents superimposition of tissue although the patient will be recalled for additional views including 90 degree lateral view of the left breast and compression spot views. No other significant abnormalities are identified. BI/SCRN MAMM (CAD)W/SHANNAN BILAT IMPRESSION: Focal area of architectural distortion the anterior superior aspect of the left breast as seen on the mediolateral oblique view. The patient will be recalled for additional Recall Side: Left Breast ASSESSMENT CATEGORY: BIRADS Category 0: Incomplete. Need additional imaging evaluation. A letter regarding these results will be sent to the patient by the facility within 30 days. Approximately 10% of breast cancers are not detected by mammography. A normal mammogram should not delay biopsy of a clinically suspicious abnormality. [id number] Electronically Signed: Raul Brandt MD at 9:38 EST ,
== END | disposition home or self-care (01) ==
LOC: OPBI 08:46
PROVIDERS: PCP Internal Medicine; Referring Provider Internal Medicine; Visit Provider Internal Medicine
DX: Z12.31 Encounter for screening mammogram for malignant neoplasm of breast (principal)
CPT/HCPCS: 77063; 77067

== ENCOUNTER → 2024-04-04 | Outpatient (CLI) | payer MEDICARE, SELFPAY ==
--- NOTE | 2024-04-04 08:55 | US_ITS ---
STUDY: ULTRASOUND BREAST - LEFT REASON FOR EXAM: Female, 84 years old. Abnormal screening mammogram. TECHNIQUE: Axial and longitudinal images of the LEFT breast were performed with a high resolution ultrasound transducer. # OF IMAGES: 41 COMPARISON: Comparison is made with prior mammogram dated March 2024 and prior sonogram of the left breast dated September 20, 2014. FINDINGS: LEFT Breast: The upper lateral aspect of the left breast was examined with ultrasound. No sonographic abnormality is seen. US/Breast Limited Unilateral IMPRESSION: No sonographic abnormality is seen. ASSESSMENT CATEGORY: BIRADS Category 1: Negative. A letter regarding these results will be sent to the patient by the facility within 30 days. Electronically Signed: Raul Brandt MD at 13:53 EST ,
--- NOTE | 2024-04-04 08:55 | BI_ITS ---
MAMMOGRAPHY - UNILATERAL DIAGNOSTIC: LEFT BREAST REASON FOR EXAM: Female, 84 years old. Abnormal screening mammogram. PERTINENT HISTORY: Grandmother with breast cancer. Aunt with breast cancer. History of prior bilateral breast biopsies. TECHNIQUE: Compression spot views of the left breast in the mediolateral oblique and craniocaudad projections as well as 90 degree lateral view were obtained. CAD: Full Field Digital Mammography with Computer Added Detection was performed. COMPARISON: Comparison is made with prior study dated 2024. FINDINGS: Breast Composition: The breasts are heterogeneously dense, which may obscure small masses. There are no dominant masses or suspicious calcifications. No other significant abnormalities are identified. BI/DIAG MAMM W/CAD, UNILAT IMPRESSION: Negative unilateral diagnostic mammogram. Targeted sonographic correlation of the upper lateral aspect of the left breast is recommended for further evaluation. ASSESSMENT CATEGORY: BIRADS Category 0: Incomplete. Need additional imaging evaluation. A letter regarding these results will be sent to the patient by the facility within 30 days. Approximately 10% of breast cancers are not detected by mammography. A normal mammogram should not delay biopsy of a clinically suspicious abnormality. Electronically Signed: Raul Brandt MD at 10:07 EST ,
== END | disposition home or self-care (01) ==
PROVIDERS: PCP Internal Medicine; Referring Provider Internal Medicine; Visit Provider Internal Medicine
DX: N64.89 Other specified disorders of breast (principal)
CPT/HCPCS: 76642; 77065

== ENCOUNTER 2024-06-04 08:52 | Day surgery (SDC) | payer MEDICARE, SELFPAY ==
--- NOTE | 2024-06-01 09:31 | PAT.ANESEVAL ---
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 When Was Last Pacemaker Check QUESTION #4 FULL TEXT: You/Your Family Experience fever (hyperthermia) with Anesthesia Last Oral Intake Last Oral intake: Last Oral Intake NPO since Meds taken in AM with sips of water? Meds patient instructed to take am of surgery PONV PONV - line maintenance technician: PONV - line maintenance technician Female Yes 05/24/24 11:22 HX of Motion Sickness No 05/24/24 11:22 HX of N/V After Surgery No 05/24/24 11:22 Non-Smoker Yes 05/24/24 11:22 Duration of Surgery greater No 05/24/24 11:22 than 60 minutes Number of Risk Factors 2 05/24/24 11:22 PONV Score Moderate Risk 05/24/24 11:22 Height & Weight Height & Weight: Anesthesia: Height & Weight Height 5 ft 05/21/24 08:50 Respiratory Assessment Respiratory Assessment - line maintenance technician: Respiratory Tract Infection Hx - line maintenance technician Hx Respiratory Tract Infection No 05/24/24 11:22 STOP Sleep Apnea STOP Sleep Apnea - line maintenance technician: STOP Sleep Apnea - line maintenance technician Hx Hypertension Yes: MANY YRS AGO 05/24/24 11:22 Hx Sleep Apnea No 05/24/24 11:22 CPAP BIPAP Do you snore loudly (louder No 05/24/24 11:22 than talking or can be heard Do you often feel tired/ No 05/24/24 11:22 fatigued/ sleepy during daytime? Has anyone observed you stop No 05/24/24 11:22 breathing during sleep? STOP Results Negative 05/24/24 11:22 QUESTION #5 FULL TEXT : Do you snore loudly (louder than talking or can be heard through closed doors)? 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 Specify any problems Hx of Preganancy in last 3 No 05/24/24 11:22 Months Nurse Filling Out Transfusion DSCHRIBER 05/24/24 11:22 & Questions: Date: 05/24/24 05/24/24 11:22 Time: 11:23 05/24/24 11:22 Patient unable to answer at this time (ie. confused, unrespo /Reproduction History /Reproductive History - line maintenance technician: /Reproductive Hx- line maintenance technician Hx Now No 05/24/24 11:22 Gestational Age (in weeks): EDC: Hx Hx Para Hx Section SAB No 05/24/24 11:22 Active Medications Active Medications: Current Medications Generic Name Dose Route Start Last Admin Trade Name Freq PRN Reason Stop Dose Admin Indocyanine Green 3.75 mg/ N/A 1.5 mls @ 999 mls/hr 06/04/24 09:50 IV 06/04/24 09:51 PREOP [facility] Medical History (Updated 05/24/24 @ 11:31 by Iwona Dumont) Wears hearing aid Arthritis High cholesterol Shortness of breath on exertion History of Holter monitoring History of echocardiogram Hypertension Nausea Cholelithiasis Wears glasses Post-menopausal Bladder disease Gastric reflux Non-smoker History of edema Cardiology follow-up encounter History of stress test Osteoporosis Blind right eye Jose's disease Home Medications ?Medication ?Instructions ?Recorded ?Last Taken ?Type ibandronate 150 mg tablet 150 mg PO QMONTH 03/05/24 Unknown History omeprazole 20 mg capsule,delayed 20 mg PO BID 03/05/24 Unknown History release rosuvastatin 5 mg tablet 5 mg PO QODAY 03/05/24 Unknown History ascorbic acid (vitamin C) 500 mg 500 mg PO DAILY 05/24/24 Unknown History tablet (C-500) cranberry 500 mg capsule 500 mg PO BID 05/24/24 Unknown History Allergy/AdvReac Type Severity Reaction Status Date / Time No Known Allergies Allergy Verified 05/24/24 11:19 Surgical History (Updated 05/24/24 @ 11:31 by Iwona Dumont) Hx of bladder repair surgery Hx of colonoscopy Hx of foot surgery History of blepharoplasty H/O carpal tunnel repair History of cardiac catheterization Hx of left cataract extraction History of strabismus surgery History of appendectomy Social History Smoking Status: Never smoker alcohol intake: never substance use type: does not use Audit: Pertinent Findings Pertinent Findings EKG Perinent findings: 06/14/2021. Sinus tachycardia premature atrial complexes rate of [address] abnormality Stress test pertinent findings: 09/14/2023 negative EF 67% Echo (EF%) pertinent findings: 06/07/2023 EF 60% Recommendation Anesthesia Recommendation Anesthesia recommendation: OPTIMIZED for anesthesia
[2024-06-04] VITALS (11 sets, daily range): BP systolic 111–163; BP diastolic 53–79; PULSE 59–82; RESP 12–16; TEMP 36.2–36.8; O2SAT 94–99; BMI 33.7
--- NOTE | 2024-06-04 09:04 | PRE.ANES_ITS ---
ASA Classification* ASA Classification ASA Classification: 3 Assessment & Plan Anesthesia* Anesthesia Assessment Anesthesia Assessment: Discussed sedation and/or anesthesia options, risks, benefits, and alternatives with patient/parents/legal guardian/POA. Questions invited. The patient/parents/legal guardian/POA seems to understand and agrees to proceed with anesthesia plan. Reviewed the physical assessment, medical history, allergy history and patient home medications list prior to surgery/procedure/anesthetic and documented any changes. Performed airway and anesthesia risk assessments. Anesthesia Type Anesthesia Type: General Anesthesia Focused Assessment* Airway Assessment Mouth opens: >3 cm Mallampati Score: II Focused Labs Anesthesia Preop lab: CBC WBC 7.2 K/mm3 (4.4-11.0) 06/14/21 15:00 06/14/21 RBC 4.76 M/mm3 (4.2-5.4) 06/14/21 15:00 06/14/21 Hgb 15.0 g/dL (12.0-15.0) 06/14/21 15:00 06/14/21 Hct 44.3 % (37-47) 06/14/21 15:00 06/14/21 Plt Count 194 K/mm3 (150-450) 06/14/21 15:00 06/14/21 CHEMISTRY Potassium 3.4 mmol/L (3.5-5.1) L 06/14/21 15:00 06/14/21 Sodium 144 mmol/L (136-145) 06/14/21 15:00 06/14/21 BUN 12 mg/dL (7-18) 06/14/21 15:00 06/14/21 Creatinine 0.73 mg/dL (0.55-1.02) 06/14/21 15:00 06/14/21 Glucose 90 mg/dL (74-106) 06/14/21 15:00 06/14/21 TSH 1.57 uIU/mL (0.358-3.74) 06/14/21 15:00 COAG Pre-Assessment Diagnosis/Proposed Procedure Planned Operative Procedure(s): ROBOTIC LAP ROSANNA WITH GRAMS Anesthesia History 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 When Was Last Pacemaker Check QUESTION #4 FULL TEXT: You/Your Family Experience fever (hyperthermia) with Anesthesia Last Oral Intake Last Oral intake: Last Oral Intake NPO since Meds taken in AM with sips of water? 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 Female Yes 05/24/24 11:22 HX of Motion Sickness No 05/24/24 11:22 HX of N/V After Surgery No 05/24/24 11:22 Non-Smoker Yes 05/24/24 11:22 Duration of Surgery greater No 05/24/24 11:22 than 60 minutes Number of Risk Factors 2 05/24/24 11:22 PONV Score Moderate Risk 05/24/24 11:22 Height & Weight Height & Weight: Anesthesia: Height & Weight Height 5 ft 05/21/24 08:50 Respiratory Assessment Respiratory Assessment - gas engine operator compressors: Respiratory Tract Infection Hx - 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 Has anyone observed you stop No 05/24/24 11:22 breathing during sleep? STOP Results Negative 05/24/24 11:22 QUESTION #5 FULL TEXT : Do you snore loudly (louder than talking or can be heard through closed doors)? 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 Specify any problems Hx of Preganancy in last 3 No 05/24/24 11:22 Months Nurse Filling Out Transfusion DSCHRIBER 05/24/24 11:22 & Questions: Date: 05/24/24 05/24/24 11:22 Time: 11:23 05/24/24 11:22 Patient unable to answer at this time (ie. 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: /Reproductive Hx- gas engine operator compressors Hx Now No 05/24/24 11:22 Gestational Age (in weeks): EDC: Hx Hx Para Hx Section SAB No 05/24/24 11:22 Active Medications Active Medications: Current Medications Generic Name Dose Route Start Last Admin Trade Name Freq PRN Reason Stop Dose Admin Indocyanine Green 3.75 mg/ N/A 1.5 mls @ 999 mls/hr 06/04/24 09:50 IV 06/04/24 09:51 PREOP ONE PFSH Medical History Wears hearing aid Arthritis High cholesterol Shortness of breath on exertion History of Holter monitoring History of echocardiogram Hypertension Nausea Cholelithiasis Wears glasses Post-menopausal Bladder disease Gastric reflux Non-smoker History of edema Cardiology follow-up encounter History of stress test Osteoporosis Blind right eye Jose's disease Home Medications ?Medication ?Instructions ?Recorded ?Last Taken ?Type ibandronate 150 mg tablet 150 mg PO QMONTH 03/05/24 Un known History omeprazole 20 mg capsule,delayed 20 mg PO BID 03/05/24 Unknown History release rosuvastatin 5 mg tablet 5 mg PO QODAY 03/05/24 Unkno wn History ascorbic acid (vitamin C) 500 mg 500 mg PO DAILY 05/24 Unknown History tablet (C-500) cranberry 500 mg capsule 500 mg PO BID 05/24/24 Unkno wn History Allergy/AdvReac Type Severity Reaction Status Date / Time No Known Allergies Allergy Verified 05/24/24 11:19 Surgical History Hx of bladder repair surgery Hx of colonoscopy Hx of foot surgery History of blepharoplasty H/O carpal tunnel repair History of cardiac catheterization Hx of left cataract extraction History of strabismus surgery History of appendectomy Social History Smoking Status: Never smoker alcohol intake: never substance use type: does not use Review of Systems (Anesthesia) ROS Narrative System reviewed and no additional complaints, except as documented.
[2024-06-04] MEDS: INDOCYANINE GREEN 3.75 MG in Syringe 1.5 ML 999 MG IV (09:27)
[2024-06-04] MEDS: 0.9% Normal Saline (1000mL) 1,000 ML 15 ML IV (09:27)
--- NOTE | 2024-06-04 09:48 | PCM.HP.STD ---
HPI - General General Date of Admission: 06/04/24 Date of Service: 06/04/24 Chief Complaint: Nausea; elective cholecystectomy HPI Narrative LUCRECIA COONEY, is a 84 F who presents for elective cholecystectomy. Patient has been having recurrent nausea issues for months. She was found to have gallstones. HIDA scan was normal. Nevertheless we suspect her symptoms may be biliary colic in nature. We discussed the details of the planned procedure and she wished to proceed. She is scheduled for robotic cholecystectomy today [facility] Medical History Wears hearing aid Arthritis High cholesterol Shortness of breath on exertion History of Holter monitoring History of echocardiogram Hypertension Nausea Cholelithiasis Wears glasses Post-menopausal Bladder disease Gastric reflux Non-smoker History of edema Cardiology follow-up encounter History of stress test Osteoporosis Blind right eye Jose's disease Home Medications ?Medication ?Instructions ?Recorded ?Last Taken ?Type ibandronate 150 mg tablet 150 mg PO QMONTH 03/05/24 Unknown History omeprazole 20 mg capsule,delayed 20 mg PO BID 03/05/24 06/03/24 History release rosuvastatin 5 mg tablet 5 mg PO QODAY 03/05/24 Unknown History ascorbic acid (vitamin C) 500 mg 500 mg PO DAILY 05/24/24 Unknown History tablet (C-500) cranberry 500 mg capsule 500 mg PO BID 05/24/24 Unknown History Allergy/AdvReac Type Severity Reaction Status Date / Time No Known Allergies Allergy Verified 06/04/24 09:21 Surgical History Hx of bladder repair surgery Hx of colonoscopy Hx of foot surgery History of blepharoplasty H/O carpal tunnel repair History of cardiac catheterization Hx of left cataract extraction History of strabismus surgery History of appendectomy Social History Smoking Status: Never smoker alcohol intake: never substance use type: does not use Vital Signs Vital Signs Vital Signs: 06/04/24 09:29 06/04/24 09:29 Temperature 97.2 F L Temperature Source Temporal Pulse Rate 63 Respiratory Rate 16 Respiratory Pattern Normal Blood Pressure 163/66 H Blood Pressure Mean 98 Blood Pressure Source Monitor Blood Pressure Position Semi-Fowlers Blood Pressure Location Left Arm Pulse Ox 95 Oxygen Delivery Method Room Air Weight Weight: 173 lb Body Mass Index (BMI) 33.7 Physical Exam Const alert, oriented x3 and no apparent distress Assessment & Plan Assessment/Plan (1) Cholelithiasis: PLAN: Plan The patient is an 84-year-old female with persistent nausea and gallstones. I have offered her a laparoscopic/robotic cholecystectomy. We discussed the details of the planned procedure and she wishes to proceed. Surgery will begin shortly.
--- NOTE | 2024-06-04 10:35 | GALL_PTH ---
PATIENT: LUCRECIA COONEY LOC: [facility] [place][id number] AGE/SX: 84/F ROOM: RE06/04/[address]: Dr. Roberto Parker MD : 1940 BED: DIS: 06/04/2024 SPEC #: [id number] RECD: 06/04/24 12:27 STATUS: KELBY RETyler #: [id number] ALISSA: 06/04/24 10:[address]: Roberto Parker DEPT: SURGICAL PATHOLOGY RECD BY: Alina Subramanian ENTERED: 06/04/24 12:46 SP TYPE: VENTURA RILEY DR: Dr. Catherine Magana DO Tissues: Gallbladder, NOS Procedures: Surgery Specimen Level III HEADER OPERATION: Robotic cholecystectomy with grams PRE-OP DIAGNOSIS: Cholelithiasis TISSUE SUBMITTED: Gallbladder MICROSCOPIC DIAGNOSIS GALLBLADDER, CHOLECYSTECTOMY: * Mild chronic inflammation with cholelithiasis. MICROSCOPIC DESCRIPTION Slides are reviewed. GROSS DESCRIPTION The specimen is received in a container labeled with the patient's name and accession number. It is designated as gallbladder. It consists of one intact turgid gallbladder measuring 8.5 x 3 x 2.5cm. The serosal surface is pink-green and shiny. The cystic duct is closed with a plastic white clip. The clip is removed, and abundant green-yellow bile exudes from it. The gallbladder is opened completely, revealing one large oval green-black stone measuring 2cm in greatest dimension. The mucosa is velvety and green-red, without nodules, polyps or masses. The wall averages 2mm in thickness. RS1. Mr 06/04/2024 CPT:81411
[2024-06-04] MEDS: Bupiv/Epi 0.25% 30 ML Vial (11:16)
--- NOTE | 2024-06-04 12:12 | PCM.POST.ANE ---
Anesthesia: Postop Eval I Current Vital Signs Temperature: 98.1 F Pulse Rate: 82 Blood Pressure: 147/76 Respiratory Rate: 16 Pulse Ox: 96 Oxygen Delivery Method: Nasal Cannula Oxygen Flow Rate (L/min): 2 Assessment Airway patent: Yes Spontaneous unlabored respirations: Yes Mental status: Awake nausea: No Vomiting: No Anesthesia Complication: No Fluid Hydration Crystalloid volume administer (ml): 800 Total IV fluid infused: 800 Progress Note Anesthesia document: Postop Eval 1 completed: Yes
--- NOTE | 2024-06-04 12:19 | EX.PCM.DISCH ---
Discharge Instructions Diet Discharge Diet: Light diet - advance as tolerated Activity Discharge Activity: Return to Normal Activity May shower in (days): 1 Ice area for (Minutes): 30 Lifting Restrictions: Keep lifting under 20 pounds for 3 to 4 weeks Dressing / Incision Call your doctor if your incision/area has: Continuous Slow Oozing, Sudden Increased Bleeding, Increased Pain/ Swelling, Increased Redness, Foul Smelling Discharge and Swelling at the incision site Call your doctor if you observe: Fever of 101 or Higher Cleanse incision/area with: Soap & Water Follow Up Care Please Follow Up With: Roberto Parker MD When: 2 weeks. Please call office to schedule appointment Test Results: Test results from this visit will be discussed in further detail at your follow-up appointment, if applicable. Discharge Plan Admission Primary Reason for Your Visit: Elective cholecystectomy Attending Provider: Roberto Parker Primary Care Provider: Catherine Magana Instructions Print Language: [place] Leonean Discharge Orders/Prescriptions Prescriptions: New oxycodone-acetaminophen [Percocet] 5-325 mg tablet 1 tab PO Q8H PRN (Reason: pain) 4 Days Qty: 10 0RF Continued omeprazole 20 mg capsule,delayed release(DR/EC) 20 mg PO BID rosuvastatin 5 mg tablet 5 mg PO QODAY ibandronate 150 mg tablet 150 mg PO QMONTH ascorbic acid (vitamin C) [C-500] 500 mg tablet 500 mg PO DAILY cranberry 500 mg capsule 500 mg PO BID Rx Instructions: administer with meals Referrals / Follow Up: Catherine Magana DO [Primary Care Provider] - Disposition Disposition (needs filled in before D/C Order can be placed): Home, Self Care
--- NOTE | 2024-06-04 12:23 | PCM.OPRPT ---
Problems Associated Problem List Diagnoses (1) Cholelithiasis: Procedures Digestive 40xxx-49xxx: 72886 Laparo cholecystectomy/graph Operative Report (Standard) Operative Information Date of Procedure: 06/04/24 Pre-Operative Diagnosis: Symptomatic cholelithiasis Post-Operative Diagnosis: Symptomatic cholelithiasis. Surgery/Procedure Performed: Robotic cholecystectomy with ICG cholangiography optometrist owner: Yes Manager Business Planning: Teo Kasper Tasks completed by transition assistant: Closing and Trocar Additional preschool assistant?: No Type of Anesthesia: General and Local RN Documented Start/Stop Times: Operation Date: 06/04/24 10:35 Case Time Into Pre-Op 06/04/24 09:16 Out of Pre-Op 06/04/24 10:27 Anesthesia Start 06/04/24 10:30 Into Room 06/04/24 10:30 Procedure Start 06/04/24 10:56 Procedure End 06/04/24 11:57 Anesthesia End 06/04/24 12:08 Out of Room 06/04/24 12:08 Into Recovery 06/04/24 12:14 Procedure Start Time: 10:56 Procedure Stop Time: 11:57 Select all DRAINS/GRAFTS/IMPLANTS that apply: None Estimated Blood Loss: 5 mL Specimen collected: Yes Description of specimen(s) removed: Gallbladder Description of surgery: The patient is an 84-year-old female who was recently seen to the office with upper abdominal pain and complains of nausea especially after eating. She underwent right upper quadrant ultrasound showing gallstones. HIDA scan was normal. We suspect that her symptoms were likely biliary colic in nature and recommended cholecystectomy. I offered her a robotic cholecystectomy. We discussed the details of the planned procedure and she wished to proceed. The patient was brought to the operating room today following informed consent. She was placed supine on the operative table with arms outstretched on arm boards. General anesthesia was induced. The abdomen is then prepped and draped in the usual sterile manner. Arms were comfortably tucked at her side. A 5 mm incision was made just below the umbilicus through which a 5 mm trocar was placed optically. This was placed without incident. Once in place the abdomen is then fully insufflated with CO2 gas There were no signs of bowel or vascular injury. Next an 8 mm trocar was placed on the right side of the abdomen under direct visualization. Next 2 additional 8 mm trocars were placed on the left side of the abdomen. The umbilical trocar was switched to an 8 mm trocar as well. The da Claudia robot was then brought onto the operative field and all ports were docked. 2 graspers and hook electrocautery were inserted. The gallbladder was identified in the right upper quadrant. This was grasped and reflected in cephalad direction. There was some adhesions to the undersurface of the gallbladder. These were taken down using hook electrocautery. The infundibulum of the gallbladder was identified and dissected out. The peritoneum on either side of the gallbladder was freed up. This allowed better mobilization of the infundibulum. This region was then carefully dissected. The cystic duct and cystic artery were both dissected out circumferentially. The lower third of the gallbladder was then dissected off the undersurface of the liver. The critical view of safety was able to be achieved. ICG cholangiography was utilized numerous times throughout the course of the procedure to cane weigher helper in structure identification. Once both structures were identified going to the gallbladder and there were no other structures going to and from the gallbladder. These 2 structures were then clipped. 2 clips were placed proximally on the cystic duct and 1 was placed distally. A proximal and distal clip was placed on the cystic artery. Both structures were then transected using electrocautery. The gallbladder was then bovied off the undersurface of the liver using hook electrocautery connected to the hook. Once the gallbladder was free, it was placed into a bag and brought out through the left upper quadrant incision site. Liver bed was nicely hemostatic. The fascia at the trocar site with the gallbladder was removed was closed using 0 PDS with the aid of a fascial closure device. The remaining trocars were opened up and insufflation was allowed to escape. A total of 30 cc of local anesthetic were utilized. The skin incisions were closed with 4-0 Vicryl. Skin glue was applied as dressing. She was awakened from anesthesia and taken to recovery in good condition. An INSULATION EXTRUDER OPERATOR was utilized as a programs assistant. His role included assistance with docking the robot, instrument changes and assistance with skin closure. Surgical Findings: Please see description of surgery Complications Complications: No Admit VTE Documentation VTE Present on Admission: No VTE Mechan Device Prophylaxis: SCD's VTE Pharm Prophylaxis ordered?: No Reason prophylaxis not ordered: Treatment Not Indicated
--- NOTE | 2024-06-04 12:25 | POSTOPAN2_ITS ---
Anesthesia Postop Eval I Sum Postop Eval Completion status Anesthesia document: Postop Eval 1 completed: Yes Anesthesia Postop Eval I Summary Anesthesia Postop Eval I Summary: Anesthesia Postop Eval I: Assessment Summary Airway patent Yes 06/04/24 12:13 BEEF CATTLE FARM [email or web address] Spontaneous unlabored Yes 06/04/24 12:13 BEEF CATTLE FARM [email or web address] respirations Mental status Awake 06/04/24 12:13 BEEF CATTLE FARM [email or web address] nausea No 06/04/24 12:13 BEEF CATTLE FARM [email or web address] Vomiting No 06/04/24 12:13 BEEF CATTLE [email or web address] [email or web address] Anesthesia Postop Eval I: Fluid Summary Crystalloid volume administer 800 06/04/24 12:13 BEEF CATTLE [email or web address] [email or web address] (ml) Colloids volume administered ( ml) Blood Product volume administered (ml) Total IV fluid infused 800 06/04/24 12:13 BEEF CATTLE [email or web address] [email or web address] Anesthesia Postop Eval I: Summary Notes Anesthesia Complication No 06/04/24 12:13 BEEF CATTLE [email or web address] [email or web address] Anesthesia Complication Comment: Post-operative progress note Anesthesia: Postop Eval II Evaluation Mental status: Awake Pain Level: 0 nausea: No Vomiting: No
--- NOTE | 2024-06-04 12:25 | PCM.POSTANE2 ---
Anesthesia Postop Eval I Sum Postop Eval Completion status Anesthesia document: Postop Eval 1 completed: Yes Anesthesia Postop Eval I Summary Anesthesia Postop Eval I Summary: Anesthesia Postop Eval I: Assessment Summary Airway patent Yes 06/04/24 12:13 [email or web address] Spontaneous unlabored Yes 06/04/24 12:13 [email or web address] respirations Mental status Awake 06/04/24 12:13 [email or web address] nausea No 06/04/24 12:13 [email or web address] Vomiting No 06/04/24 12:13 [email or web address] Anesthesia Postop Eval I: Fluid Summary Crystalloid volume administer 800 06/04/24 12:13 [email or web address] (ml) Colloids volume administered ( ml) Blood Product volume administered (ml) Total IV fluid infused 800 06/04/24 12:13 [email or web address] Anesthesia Postop Eval I: Summary Notes Anesthesia Complication No 06/04/24 12:13 [email or web address] [email or web address] Anesthesia Complication Comment: Post-operative progress note Anesthesia: Postop Eval II Evaluation Mental status: Awake Pain Level: 0 nausea: No Vomiting: No
[2024-06-04] MEDS: Ketorolac 15 MG/ML Vial IV (14:29)
== END 2024-06-04 15:33 | disposition home or self-care (01) ==
LOC: SDC 08:53 → AC 08:54
PROVIDERS: PCP Internal Medicine; Referring Provider Surgery; Visit Provider Surgery
PROC: 0FT44ZZ Resection of Gallbladder, Percutaneous Endoscopic Approach (ICD-10-PCS; CPT 47562; principal; 2024-06-04 10:15)
DX: K80.10 Calculus of gallbladder with chronic cholecystitis without obstruction (principal); E78.00 Pure hypercholesterolemia, unspecified; I10 Essential (primary) hypertension; K21.9 Gastro-esophageal reflux disease without esophagitis; Z79.899 Other long term (current) drug therapy
CPT/HCPCS: 47563; S2900; 00790; 88304; 93005; A4216; J2405

== ENCOUNTER → 2024-09-11 | Outpatient (CLI) | payer MEDICARE, SELFPAY ==
--- NOTE | 2024-09-11 17:23 | CT_ITS ---
PROCEDURE: ABDOMEN/PELVIS WITH CONTRAST 09/12/2024 REASON FOR EXAM: CT ABDOMEN AND PELVIS W/CONTRAST - MID ABD. PAIN, NAUSEA, VOMITIN TECHNIQUE: ABDOMEN/PELVIS WITH CONTRAST. Coronal and Sagittal reconstruction series were provided. ORAL CONTRAST TYPE: None. AMOUNT: mL CONTRAST: VOLUME: mL One or more dose reduction techniques were used (e.g., Automated exposure control, adjustment of the mA and/or kV according to patient size, use of iterative reconstruction technique. RADIATION DOSE SUMMARY: CTDlvol: mGy DLP: mGycm COMPARISON: none FINDINGS: Average sized liver showing homogenous parenchymal attenuation with segment VII 9 mm hypodense focal lesion that could represent small cyst versus hemangioma. No dilated intra or extra-hepatic biliary tracts. Gall bladder is not identified Normal appearance of the pancreas with clear surrounding fat planes. The spleen, adrenal glands and IVC are unremarkable. Vascular atheromatous calcifications Both kidneys are of average size and showing smooth outline with preserved parenchymal thickness. No renal calculi. No hydronephrosis. Distension of the urinary bladder showing no obvious masses. No obvious masses related to the pelvic viscera. Prominent left parametrial veins. The appendix is not identified. No right iliac inflammatory changes. Diffuse gastric wall thickening, possibly gastritis. Advise clinical correlation. Colonic fecal loading. Colonic diverticulosis. No diverticulitis. The small bowel loops are unremarkable. No ascites or free air. No obvious pathologically enlarged lymph nodes. Scanned osseous structures show no osseous destruction. Thoracolumbar spondylosis. Scanned lung bases show basal atelectatic changes. CT/Abdomen/Pelvis WITH Contrast IMPRESSION: Diffuse gastric wall thickening, possibly gastritis. Advise clinical correlatio n. Colonic fecal loading. Colonic diverticulosis. No diverticulitis. No other acute pelvi-abdominal abnormalities, collections or free air. Reading [facility]
== END | disposition home or self-care (01) ==
LOC: CT 17:22
PROVIDERS: PCP Internal Medicine; Referring Provider Internal Medicine; Visit Provider Internal Medicine
DX: R10.9 Unspecified abdominal pain (principal); R11.2 Nausea with vomiting, unspecified
CPT/HCPCS: 74177; Q9967; A4216

== ENCOUNTER → 2024-09-19 | Outpatient (CLI) | payer MEDICARE, SELFPAY ==
--- NOTE | 2024-09-19 12:53 | ECHOD_ITS ---
Reason For Study Reason For Study: PHTN Procedure This was a 2D Doppler, Color Flow transthoracic echocardiogram. Exam performed in department. Left Ventricle Normal LV size. The left ventricular ejection fraction is 65 %. Stage 1 diastolic dysfunction. No regional wall motion abnormalities noted. Right Ventricle Normal RV size. Normal systolic function. Atria Normal left atrium. Normal right atrium. Patent foramen ovale. Tricuspid Valve Normal tricuspid valve. Mild (1+) tricuspid valve insufficiency. Pulmonary artery systolic pressure is 33 mmHg. Aortic Valve Trisinus/trileaflet aortic valve. Mild focal aortic valve calcification. Mild (1+) aortic valve insufficiency. Pulmonic Valve Normal pulmonic valve. Great Vessels Normal aortic root. The pulmonary artery is normal size. Inferior vena cava collapse with respiration. Pericardium/Pleural No pericardial effusion. MMode/2D Measurements & Calculations LVIDd: 4.2 cm IVSd: 1.0 cm LVOT diam: 2.0 cm LVIDs: 2.9 cm LVPWd: 1.0 cm LVOT area: 3.1 cm2 RVDd: 3.1 cm FS: 30.9 % asc Aorta Diam: 3.9 cm LAV(MOD-bp): 52.5 ml LVAd ap4: 21.0 cm2 LAV(MOD-bp) Indexed: 30.3 ml/m2 LVLd ap4: 7.3 cm LAV(MOD-sp2): 52.5 ml EDV(MOD-sp4): 50.1 ml LAV(MOD-sp4): 52.8 ml EDV(sp4-el): 51.1 ml LVAs ap4: 10.8 cm2 LVLs ap4: 6.1 cm ESV(MOD-sp4): 16.9 ml ESV(sp4-el): 16.1 ml EF(MOD-sp4): 66.3 % EF(sp4-el): 68.6 % SV(MOD-sp4): 33.2 ml SV(MOD-sp2): 28.0 ml LVAd ap2: 19.0 cm2 LVLd ap2: 7.1 cm SI(MOD-sp4): 19.2 ml/m2 SI(MOD-sp2): 16.2 ml/m2 EDV(MOD-sp2): 44.9 ml EDV(sp2-el): 43.2 ml LVAs ap2: 10.4 cm2 LVLs ap2: 6.1 cm ESV(MOD-sp2): 16.9 ml ESV(sp2-el): 15.1 ml EF(MOD-sp2): 62.3 % SV(sp4-el): 35.1 ml Ao sinus diam: 3.[address] Junction: 2.8 cm LA A4 area: 18.6 cm2 LA dimension(2D): 4.1 cm RA A4 area: 13.9 cm2 TAPSE: 2.2 cm Time Measurements MV dec time: 0.20 sec Doppler Measurements & Calculations MV E max quan: 68.1 cm/sec Lat Peak E' Quan: 9.3 cm/sec Med Peak E' Quan: 10.3 cm/sec MV A max quan: 95.7 cm/sec E/E' lat: 7.3 E/E' med: 6.6 MV E/A: 0.71 Ao V2 max: 177.3 cm/sec AI max quan: 361.4 cm/sec MV dec slope: 340.2 cm/sec2 Ao max P.6 mmHg AI max P.2 mmHg Ao V2 mean: 127.2 cm/sec Ao mean P.3 mmHg AI dec slope: 267.9 cm/sec2 Ao V2 VTI: 38.1 cm AI P1/2t: 395.2 msec AV (velocity ratio): 0.77 STACEY(I,D): 2.4 cm2 STACEY(V,D): 2.3 cm2 LV V1 max: 132.5 cm/sec SV(LVOT): 90.2 ml PA V2 max: 101.1 cm/sec LV V1 max P.0 mmHg LV V1 mean P.8 mmHg LV V1 mean: 89.1 cm/sec LV V1 VTI: 29.5 cm TR max quan: 267.8 cm/sec TR max P.7 mmHg ECHO/Echo Complete Interpretation Summary The left ventricular ejection fraction is 65 %. Normal LV size. Stage 1 diastolic dysfunction. Patent foramen ovale. Mild (1+) aortic valve insufficiency. Ordering Physician: Harmeet Casillas V Referring Physician: Catherine Magana D.O. Performed By: Kennedi Roberts RDCS
--- OUTSIDE RECORDS SUMMARY | 2024-09-19 21:57 | XMS RPT_ITS | CCD ---
Author Organization [facility] Inform ion Partnership [facility] Care Team Providers Care House Servant Name Role Phone Yensho CLEANER AND POLISHER, Rossy A Unavailable Unavailab le Yensho CLEANER AND POLISHER, Rossy A Unavailable Unavailab Rekha Singh Unavailable Unavailable Roberto Ball Unavailable [phone] Virgilio Rojas MD Primary Care Provider Virgilio Rojas MD Primary Care Provider Virgilio Rojas MD Primary Care Provider [phone] VIRGILIO ROJAS Primary Care Unavailable VIRGILIO ROJAS [...] Dr. Padmaja De La Garza MD Unavailable [phone] Marcel Landis Unavailable Gail Villanueva RN Unavailable Unavailable Slarb CLEANER AND POLISHER, Laurence Unavailable Unavailable Fast DO, Catherine A Unavailable Arias JARRETT Tabitha Unavailable Unavailable Unavailable Unavailable Chino ROCK, Catherine A Unavailable Dr. Catherine Magana Primary Care Provider Dr. Camryn Argueta Attending Provider [phone] Virgilio Rojas MD Primary Care Provider Fast DO, Dr. Alexander Primary Care Provider [phone] Fast DO, Dr. Alexander Attending Provider [phone] Fast DO, Dr. Alexander Referring Provider [phone] Elena MO, Dr. Roberto Lou Attending Provider Elena MO, Dr. Roberto Lou Referring Provider Elena MO, Dr. Roberto Lou Other Provider [phone] Fast DO, Dr. Alexander Primary Care Provider [phone] Fast DO, Dr. Alexander Referring Provider [phone] Elena MO, Dr. Roberto Lou Attending Provider Elena MO, Dr. Roberto Lou Referring Provider Krystyna Puga PA-C Attending Provider Fast DO, Dr. Alexander Attending Provider [phone] Fast, Catherine Primary Care Unavailable Sibilia, Bridgette V Referring Unavailable Sibilia, Bridgette V Attending Unavailable Fast, Catherine Referring Unavailable Fast, Catherine Attending Unavailable Fast, Catherine Primary Care Unavailable Fast, Catherine Referring Unavailable Fast, Catherine Attending Unavailable Fast, Catherine Primary Care Unavailable Fast, Catherine Referring Unavailable Fast, Catherine Primary Care Unavailable Fast, Catherine Attending Unavailable Wanek, Roberto A Referring Unavailable Wanek, Roberto A Attending Unavailable Fast, Catherine Primary Care Unavailable Wanek, Roberto A Referring Unavailable Wanek, Roberto A Attending Unavailable Fast, Catherine Primary Care Unavailable Fast, Catherine Primary Care Unavailable Fast, Catherine Referring Unavailable Fast, Catherine Attending Unavailable Fast, Catherine Referring Unavailable Fast, Catherine Primary Care Unavailable Krystyna Read Attending Unavailable Fast, Catherine Referring Unavailable Wanek, Roberto A Attending Unavailable Fast, Catherine Primary Care Unavailable Wanek, Roberto A Attending Unavailable Fast, Catherine Primary Care Unavailable Fast, Catherine Referring Unavailable Wanek, Roberto A Attending Unavailable Wanek, Roberto A Consulting Unavailable Wanek, Roberto A Referring Unavailable Fast, Catherine Primary Care Unavailable Allergies Allergy Classification Reported Allergen(s) Allergy [...] Drug Class(es) Dates Sig (Normalized) Sig (Original) acetaminophen 325 mg / HYDROcodone bitartrate 5 mg oral tablet (1 source) Opioid Agonist Start: 02-25-2022 take 1 tablet by mouth every six hours Hydrocodone-Aceta minophen Active 1 TABLET PO EVERY 6 HOURS 12 3 February 25, 2022 ascorbic acid 500 mg oral tablet (10 sources) Vitamin C Start: 05-24-2024 take 1 tablet by mouth once daily Ascorbic Acid (Vitamin C) (C-500) 500 mg tablet Active 500 mg PO DAILY May 24, 2024 1:00am Start: 07-17-2018 End: 03-05-2024 take 2 capsules by mouth twice daily Ascorbic Acid (Vitamin C) 500 MG capsule Discontinued 1000 mg PO TWICE A DAY July 17, 2018 12:00am March 05, 2024 2:59pm Start: 07-17-2018 take 1000 mg by mout h twice daily Ascorbic Acid (Vitamin C) Active 1000 MG PO TWICE A DAY July 17, 2018 12:00am Start: 07-17-2018 take 1000 mg by mouth once cheryl ly Ascorbic Acid (Vitamin C) Active 1000 MG PO DAILY July 17, 2018 12:55pm Calcium Carbonate / vitamin D3 (9 sources) calcium carbonat e/vitamin D3 (CALTRATE 600 + D ORAL) Take by mouth. Active calcium carbonat e/vitamin D3 (CALTRATE 600 + D ORAL) Take by mouth. 0 Active Comment on above: Take by mouth. Cranberry (11 sources) Non-Standardized Food Allergenic Extract, Non-Standardized Plant Allergenic Extract Start: 05-24-2024 take 1 capsule by mouth twice daily at mealtime Cranberry 500 mg capsule Active 500 mg PO TWICE A DAY May 24, 2024 1:00am administer with meals Start: 10-25-2022 Start: 07-17-2018 take 800 mg by mouth once amber y Cranberry Fruit Active 800 MG PO DAILY July 17, 2018 12:55pm Start: 07-17-2018 End: 03-05-2024 take 1 tablet by mouth twice daily Cranberry Fruit 400 MG tablet Discontinued 800 mg PO TWICE A DAY July 17, 2018 12:00am March 05, 2024 2:59pm Start: 07-17-2018 take 800 mg by mouth twice daily Cranberry Fruit Active 800 MG PO TWICE A DAY July 17, 2018 12:00am Start: 07-17-2018 take 800 mg by mouth twice daily Cranberry Fruit Active 800 MG PO TWICE A DAY July 16, 2018 11:00pm Start: 07-17-2018 take 800 mg by mouth once amber y Cranberry Fruit Active 800 MG PO DAILY July 17, 2018 12:00am ergocalciferol, vitamin D2, (VITAMIN D2 ORAL) (9 sources) ergocalciferol, vitamin D2, (VITAMIN D2 ORAL) Take by mouth. Active ergocalciferol, vitamin D2, (VITAMIN D2 ORAL) Take by mouth. 0 Active Comment on above: Take by mouth. ibandronic acid 150 mg oral tablet (2 sources) Bisphosphonate Start: 03-05-20 24 take 1 tablet by mouth every month Ibandronate 150 mg tablet Active 150 mg PO EVERY MONTH March 05, 2024 1:00am MULTIVITAMIN TAB (9 sources) Start: 06-08-19 08 MULTIVITAMIN TAB Take one(1) tablet daily. 0 06/08/2007 Active Comment on above: Take one(1) tablet d aily. Multivitamin With Minerals (Multiple Vitamin-Minerals) 1 EACH tablet (8 sources) Start: 07-18-19 19 take 1 tablet by mouth once daily Multivitamin With Minerals (Multiple Vitamin-Minerals) 1 EACH tablet Active 1 EACH PO DAILY July 17, 2018 12:55pm Start: 07-17-2018 End: 03-05-2024 take 1 tablet by mouth once daily Multivitamin With Minerals (Multiple Vitamin-Minerals) 1 EACH tablet Discontinued 1 NMA PO DAILY July 17, 2018 12:00am March 05, 2024 2:59pm Start: 07-17-2018 take 1 tablet by yomi th once daily Multivitamin With Minerals (Multiple Vitamin-Minerals) 1 EACH tablet Active 1 EACH PO DAILY July 16, 2018 11:00pm Start: 07-17-2018 take 1 tablet by yomi th once daily Multivitamin With Minerals (Multiple Vitamin-Minerals) 1 EACH tablet Active 1 EACH PO DAILY July 17, 2018 12:00am omeprazole 20 mg delayed release oral capsule (20 sources) Proton Pump Inhibitor Start: 03-05-2024 take 1 capsule by mouth twice daily Omeprazole 20 mg capsule,delayed release(DR/EC) Active 20 mg PO TWICE A DAY March 05, 2024 1:00am Start: 10-18-2022 Start: 04-19-2022 take 1 capsule by mo [facility] twice daily before mealtime omeprazole (PRILOSEC) 40 mg capsule Take 1 capsule by mouth twice daily. 1/2 hr before meal. 60 capsule 5 04/19/2022 Active Start: 11-04-2020 End: 03-05-2024 take 1 capsule by mouth once daily Omeprazole 40 mg Capsule,Delayed Release(Dr/Ec) Discontinued 40 mg PO DAILY February 16, 2022 1:00am March 05, 2024 3:00pm End: 08-07-2015 take 1 tablet by mouth once daily [facility] OMEPRAZOLE 20 MG TBEC One tablet by mouth daily OMEPRAZOLE [id number] Jody Phipps Comment on above: Take 1 capsule by [facility] once daily. 1/2 hr before meal. Take 1 capsule by [facility] twice daily. 1/2 hr before meal. ondansetron 4 mg disintegrating oral tablet (9 sources) Serotonin-3 Receptor Antagonist Start: 04-17-19 take 1 tablet by mouth every six hours as needed ondansetron orally disintegrating (ZOFRAN ODT) 4 mg disintegrating tablet Take 1 tablet by mouth every 6 hours as needed for nausea/vomiting. 15 tablet 1 04/17/2021 Active Comment on above: Take 1 tablet by [facility] every 6 hours as needed for nausea/vomiting. perflutren lipid microspheres 1.3 mL in NaCl (PF) 0.9% 10 mL injection (DEFINITY) (4 sources) Start: 10-11-19 End: 01-10-20 perflutren lipid microspheres 1.3 mL in NaCl (PF) 0.9% 10 mL injection (DEFINITY) predniSONE 10 mg oral tablet (1 source) Start: 08-28-19 End: 09-06-19 22 predniSONE (DELTASONE) 10 mg tablet Indications: Allergic rash present on examination Take 4 tabs daily for 3 days, then 2 tabs daily for 3 days, then 1 tab daily for 3 days with food. 21 tablet 0 08/27/2021 09/05/2021 Active Comment on above: Take 4 tabs daily fo r 3 days, then 2 tabs daily for 3 days, then 1 tab daily for 3 days with food. rosuvastatin calcium 5 mg oral tablet (2 sources) HMG-CoA Reductase Inhibitor Start: 03-05-20 take 1 tablet by mouth every other day Rosuvastatin 5 mg tablet Active 5 mg PO EVERY OTHER DAY March 05, 2024 1:00am 125 ml sodium chloride 9 mg/ml prefilled syringe (4 sources) Start: 10-11-19 End: 01-10-20 22 sodium chloride 0.9 % (flush) 10 mL (BD POSIFLUSH) valACYclovir 500 mg oral tablet (20 sources) Herpesvirus Nucleoside Analog DNA Polymerase Inhibitor, Herpes Simplex Virus Nucleoside Analog DNA Polymerase Inhibitor, Herpes Zoster Virus Nucleoside Analog DNA Polymerase Inhibitor Start: 12-16-19 End: 10-26-19 23 take 1 tablet by mouth twice daily valACYclovir (VALTREX) 500 mg tablet Take 1 tablet by mouth twice daily for 3 days 6 tablet 5 10/18/2022 Active End: 05-07-2014 take 2 tablets by mouth twice daily VALTREX 500 MG TABS Two tablets by mouth twice daily VALACYCLOVIR HCL [id number] Marcel Landis Comment on above: Take 1 tablet by yomi th twice daily for 3 days Completed/Discontinued Medications Medication Drug Class(es) Dates Sig (Normalized) Sig (Original) acetaminophen 325 mg / oxyCODONE hydrochloride 5 mg oral tablet (2 sources) Opioid Agonist Start: 06-04-2024 End: 06-14-2024 Oxycodone-Acetamin ophen (Percocet) 5-325 mg tablet Discontinued 1 {tbl} PO Q8H as needed for pain 12 29June 04, 2024 June 14, 2024 9:50am 200 actuat albuterol 0.09 mg/actuat metered dose inhaler (5 sources) beta2-Adrenergic Agonist Start: 08-07-2014 take 2 puff(s) by inhalation every four to six hours as needed for wheezing PROAIR HFA 108 (90 Base) MCG/ACT AERS 2 puffs INH q 4-6 hours PRN Wheezing ALBUTEROL SULFATE [id number] Marcel Landis Start: 08-07-2014 take 2 puff(s) by in halation every four to six hours as needed for wheezing PROAIR HFA 108 (90 Base) MCG/ACT AERS 2 puffs INH q 4-6 hours PRN Wheezing ALBUTEROL SULFATE [id number] Marcel Landis amoxicillin 875 mg / clavulanate 125 mg oral tablet (1 source) Penicillin-class Antibacterial Start: 03-23-2010 End: 04-02-2010 aspirin 81 mg delayed releas e oral tablet (7 sources) Nonsteroidal Anti-inflammatory Drug Start: 06-03-2015 End: 07-03-2015 End: 04-17-2007 take 1 tablet by yomi th once daily ASPIRIN 81 MG CHEW One tablet by mouth daily ASPIRIN [id number] Marcel Landis atenolol 25 mg oral tablet (11 sources) beta-Adrenergic Luc Start: 11-12-2015 End: 07-01-2016 azelaic acid 0.15 mg/mg topi harlan gel (11 sources) Start: 09-05-2013 End: 10-14-2014 End: 05-07-2014 FINACEA 15 % GEL external tw ice daily AZELAIC ACID [id number] Marcel Landis FINACEA 15 % GEL external twice daily AZELAIC ACID [id number] Jody Phipps End: 05-07-2014 FINACEA 15 % GEL external tw ice daily AZELAIC ACID [id number] Marcel Landis bifidobacterium infantis 4 mg oral capsule (1 source) Start: 06-20-2012 End: 07-04-2012 calcium carbonate 1500 mg / cholecalciferol 800 unt oral tablet (9 sources) Vitamin D Start: 07-17-2018 End: 03-05-2024 take 1 tablet by mouth twice daily Calcium Carbonate-Vitamin D3 (Caltrate With Vitamin D3) 1 EACH tablet Discontinued 1 NMA PO TWICE A DAY July 17, 2018 12:00am March 05, 2024 2:59pm Start: 07-17-2018 take 1 tablet by yomi th once daily Calcium Carbonate-Vitamin D3 (Caltrate With Vitamin D3) 1 EACH tablet Active 2 EACH PO DAILY July 17, 2018 12:55pm End: 06-03-2015 calcium citrate / vitamin D (10 sources) End: 05-07-2014 take 1 tablet by mouth twice daily CALCIUM 600-200 MG-UNIT TABS One tablet by mouth twice daily CALCIUM-VITAMIN D [id number] Marcel Landis take 1 tablet by [facility] twice daily CALCIUM 600-200 MG-UNIT TABS One tablet by mouth twice daily CALCIUM-VITAMIN D [id number] Jody Phipps End: 05-07-2014 take 1 tablet by mouth twice daily CALCIUM 600-200 MG-UNIT TABS One tablet by mouth twice daily CALCIUM-VITAMIN D [id number] Marcel Landis cephalexin 500 mg oral capsule (2 sources) Cephalosporin Antibacterial Start: 10-22-2022 End: 10-27-2022 take 1 capsule by mouth four times daily cephALEXin (KEFLEX) 500 mg capsule Take 1 capsule by mouth four times daily for 5 days. 20 capsule 10/22/2022 10/27/2022 Comment on above: Take 1 capsule by [facility] four times daily for 5 days. cholecalciferol 0.05 mg oral capsule (11 sources) Vitamin D Start: 07-17-2018 End: 03-05-2024 take 1 capsule by mouth twice daily Cholecalciferol (Vitamin D3) (Vitamin D3) 2,000 UNIT capsule Discontinued 2000 U PO TWICE A DAY July 17, 2018 12:00am March 05, 2024 2:59pm Start: 07-17-2018 take 1 capsule by [facility] once daily Cholecalciferol (Vitamin D3) (Vitamin D3) 2,000 UNIT capsule Active 2000 UNIT PO DAILY July 17, 2018 12:55pm Start: 12-30-2008 End: 10-29-2011 End: 05-24-2006 ciprofloxacin 500 mg oral tablet (12 sources) Quinolone Antimicrobial Start: 07-01-2016 End: 08-04-2016 CIPROFLOXACIN HCL 500 MG TABS 1 tablet 2 times a day CIPROFLOXACIN HCL [id number] Rekha Vargas Start: 09-10-2013 End: 09-20-2013 Start: 07-26-2013 End: 08-10-2013 clarithromycin 500 mg oral tablet (1 source) Macrolide Antimicrobial Start: 07-04-2013 End: 08-10-2013 desoximetasone 2.5 mg/ml topical cream (1 source) Corticosteroid Start: 10-26-2011 End: 11-09-2011 dextromethorphan hydrobromide 10 mg / guaiFENesin 200 mg oral capsule (1 source) Uncompetitive C-[place] e Receptor Antagonist, Sigma-1 Agonist Start: 08-03-2010 End: 08-03-2010 doxycycline monohydrate 100 mg oral capsule (8 sources) Tetracycline-class Drug Start: 08-25-2017 End: 10-27-2017 take 1 capsule by mouth twice daily Doxycycline Monohydrate 100 mg capsule Discontinued 100 mg PO TWICE A DAY August 25, 2017 12:00am October 27, 2017 12:19pm 24 hr fexofenadine hydrochloride 180 mg / pseudoephedrine hydrochloride 240 mg extended release oral tablet (1 source) alpha-Adrenergic Agonist, Histamine-1 Receptor Antagonist Start: 12-20-2006 End: 12-30-2008 Fish Oils (1 source) Start: 04-13-2016 End: 10-25-2022 fluticasone propionate 0.05 mg/actuat metered dose nasal spray (6 sources) Corticosteroid Start: 07-05-2011 End: 10-14-2014 FLONASE 50 MCG/A CT SUSP 2 sprays, nasal daily FLUTICASONE PROPIONATE [id number] Jody Phipps FLONASE 50 MCG/A CT SUSP 2 sprays, nasal daily FLUTICASONE PROPIONATE [id number] Jody Phipps hydroCHLOROthiazide 12.5 mg oral capsule (7 sources) Thiazide Diuretic Start: 04-17-2021 End: 04-19-2022 take 1 capsule by mouth once daily as needed hydroCHLOROthiazide 12.5 mg capsule Take 1 capsule by mouth once daily. As needed for leg swelling. 30 capsule 5 04/17/2021 04/19/2022 Discontinued (Lack of Efficacy) Start: 07-17-2008 End: 07-17-2008 Comment on above: Take 1 capsule by [facility] once daily. As needed for leg swelling. lisinopril 5 mg oral tablet (11 sources) Angiotensin Converting Enzyme Inhibitor Start: 06-11-19 16 End: 08-07-19 16 meloxicam 7.5 mg oral tablet (1 source) Nonsteroidal Anti-inflammatory Drug Start: 11-09-19 12 End: 11-09-19 12 methylprednisoLONE (7 sources) Corticosteroid Start: 10-23-19 End: 10-29-19 methylPREDNISolone (MEDROL, MAUREEN,) 4 mg Dose-Pack Follow dosing instructions, take with food. 21 tablet 10/22/2022 10/28/2022 Start: 10-22-2022 End: 10-28-2022 methylPREDNISolone (MEDROL, MAUREEN,) 4 mg Dose-Pack Follow dosing instructions, take with food. 21 tablet 0 10/22/2022 10/28/2022 Active Start: 07-07-2016 End: 07-12-2016 MEDROL 4 MG TBPK Take as dir ected METHYLPREDNISOLONE [id number] Skinny LOPEZ Start: 07-07-2016 End: 07-12-2016 MEDROL 4 MG TBPK Take as dir ected METHYLPREDNISOLONE [id number] Skinny LOPEZ Comment on above: Follow dosing instru ctions, take with food. 24 hr metoprolol succinate 25 mg extended release oral tablet (2 sources) beta-Adrenergic Luc Start: 011 End: Multi-Vitam (1 source) End: MULTIPLE VITAMINS-MINERALS (3 sources) take 1 tablet by mouth once daily MULTIVITAL-M ORAL TABS One tablet by mouth daily MULTIPLE VITAMINS-MINERALS [id number] Jody Phipps MULTIPLE VITAMINS-MINERALS (2 sources) take 1 tablet by mouth once daily MULTIVITAL-M TABS One tablet by mouth daily MULTIPLE VITAMINS-MINERALS [id number] Jody Phipps nitrofurantoin, macrocrystals 25 mg / nitrofurantoin, monohydrate 75 mg oral capsule (2 sources) Start: MACROBID 100 MG CAPS 1 capsule every 12 hours for a total of 10 doses NITROFURANTOIN MONOHYD MACRO [id number] Roberto LOPEZ nitrofurantoin, macrocrystals 25 mg / nitrofurantoin, monohydrate 75 mg oral capsule (1 source) Nitrofuran Antibacterial Start: 011 End: nystatin 100 unt/mg topical powder (1 source) Polyene Antifungal Start: 012 End: pantoprazole 40 mg delayed release oral tablet (1 source) Proton Pump Inhibitor Start: End: phenazopyridine hydrochloride 100 mg oral tablet (1 source) Start: End: microencapsulated potassium chloride 20 meq extended release oral tablet (2 sources) Start: End: Start: 09-04-2007 End: 09-13-2007 risedronate sodium 150 mg oral tablet (1 source) Start: 06-17-2009 End: 06-17-2009 actuat teriparatide 0.02 mg/actuat pen injector (6 sources) Parathyroid Hormone Analog Start: 07-01-2016 FORTEO 600 MCG/2.4ML SOLN take as directed TERIPARATIDE (RECOMBINANT) [id number] Shagufta Pinedo CLEANER AND POLISHER Start: 07-01-2016 FORTEO 600 MCG /2.4ML SOLN take as directed TERIPARATIDE (RECOMBINANT) [id number] Shagufta Pinedo CLEANER AND POLISHER Start: 04-27-2016 End: 10-25-2022 triamcinolone acetonide 0.25 mg/ml topical cream (3 sources) Corticosteroid Start: 08-27-2021 End: 09-17-2021 triamcinolone (KENALOG) 0.025 % cream Indications: Allergic rash present on examination Apply 1 application to affected area twice daily. 30 g 0 08/27/2021 09/17/2021 Discontinued (Course of therapy completed) Start: 12-20-2006 End: 03-23-2010 Comment on above: Apply 1 application to affected area twice daily. Problems Active Problems Problem Classification Problem Date Documented Da te Episodic/Chronic Abdominal pain (9 sources) Lower abdominal pain; Translations: [Generalized abdominal pain] Onset: 7 Resolved: 9 07-01-2016 Episodic Acquired foot deformities (2 sources) Bunion; Translations: [Bunion] Resolved: 9 03-18-2009 Episodic Allergic reactions (3 sources) Cutaneous hypersensitivity; Translations: [Allergy, unspecified, initial encounter] Episodic Cardiac dysrhythmias (12 sources) Sinus tachycardia; Translations: [Tachycardia, unspecified] Episodic Chronic obstructive pulmonary disease and bronchiectasis (2 sources) Bronchitis; Translations: [Bronchitis] Resolved: 2 12-31-2014 Episodic Disorders of lipid metabolism (20 sources) Hypercholesterolemia; Translations: [Hypercholesteremia] 10-25-2022 Chronic Diverticulosis and diverticulitis (10 sources) Diverticulosis of colon; Translations: [Diverticulosis of large intestine without perforation or abscess without bleeding] 04-17-2021 Chronic Esophageal disorders (20 sources) Gastroesophageal reflux disease without esophagitis; Translations: [Gastro-esophageal reflux disease without esophagitis] Onset: Chronic Essential hypertension (20 sources) Benign essential [...] Resolved: 9 07-07-2016 Chronic Heart valve disorders (12 sources) Aortic incompetence, non-rheumatic ; Translations: [Nonrheumatic [...] Resolved: 9 02-10-2015 Episodic Nonmalignant breast conditions (10 sources) Fibrocystic disease of breast; Translations: [Diffuse cystic mastopathy of unspecified breast] 12-01-2016 Chronic Nonspecific chest pain (16 sources) Finding of region of thorax; Translations: [Other chest pain] Resolved: 9 06-22-2021 Episodic Osteoporosis (20 sources) Primary osteoporosis; Translations: [Age-related osteoporosis without current pathological fracture] Onset: 7 04-23-2021 Chronic Other bone disease and musculoskeletal deformities (15 sources) Osteopenia; Translations: [Osteopenia] Resolved: 7 04-13-2016 Episodic Other circulatory disease (8 sources) Orthostatic hypotension; Translations: [Orthostatic hypotension] 10-04-2020 Episodic Other connective tissue disease (9 sources) Plantar fascial fibromatosis; Translations: [Plantar fascial fibromatosis] 12-01-2016 Episodic Other connective tissue disease (2 sources) Swelling of hand; Translations: [Other specified soft tissue disorders] 10-22-2022 Episodic Other connective tissue disease (2 sources) Pain in right thumb; Translations: [Pain in right finger(s)] 10-22-2022 Episodic Other connective tissue disease (1 source) Other specified soft tissue disorders; Translations: [Swelling of right hand] Onset: Episodic Other connective tissue disease (4 sources) [...] fibrosis] 04-13-2016 Chronic Other lower respiratory disease (8 sources) Hypoxemia; Translations: [Hypoxemia] 10-04-2020 Episodic Other lower respiratory disease (3 sources) Cough; Translations: [Cough] 04-13-2016 Episodic Other lower respiratory disease (8 sources) Dyspnea on exertion; Translations: [SOB (shortness of breath) on exertion] Onset: 1 04-13-2016 Episodic Other nervous system disorders (4 sources) Carpal tunnel syndrome; Translations: [Carpal tunnel syndrome, unspecified laterality] 04-13-2016 Chronic Other nervous system disorders (6 sources) Postoperative pain ; Translations: [Other acute postprocedural pain] 02-25-2022 Episodic Other nervous system disorders (3 sources) Paresthesia; [...] chest x-ray] Resolved: 6 11-12-2015 Chronic Other skin disorders (4 sources) Actinic keratosis; Translations: [Actinic keratoses] 04-13-2016 Episodic Other skin disorders (2 sources) Eruption; Translations: [Rash] Resolved: 4 06-01-2013 Episodic Other skin disorders (2 sources) Sebaceous cyst of skin; Translations: [Sebaceous cyst] Resolved: 0 05-08-2015 Episodic Other upper respiratory disease (9 sources) Vasomotor rhinitis; Translations: [Vasomotor rhinitis] Onset: [...] tube; Translations: [Eustachian tube dysfunction] 04-13-2016 Episodic Pulmonary heart disease (1 source) Primary pulmonary hypertension; Translations: [Primary pulmonary hypertension] Onset: Chronic Residual codes; unclassified (10 sources) Family history of neoplasm; Translations: [Family history of other specified conditions] 09-20-2019 Episodic Residual codes; unclassified (12 sources) Edema; Translations: [Edema, unspecified] Onset: 2 Resolved: 3 12-01-2016 Episodic Residual codes; unclassified (2 sources) History of colonoscopy; Translations: [H/O colonoscopy] 04-13-2016 Episodic Residual codes; unclassified (3 sources) Non-smoker; Translations: [Nonsmoker] 04-13-2016 Episodic Residual codes; unclassified (5 sources) Edema; Translations: [Edema (782.3)] Episodic Skin and subcutaneous tissue infections (8 sources) Cellulitis of foot; Translations: [Cellulitis of right lower limb] 07-24-2018 Episodic Spondylosis; intervertebral disc disorders; other back problems (7 sources) Degeneration of lumbar intervertebral disc; Translations: [Other intervertebral disc degeneration, lumbar region] 04-13-2016 Chronic Spondylosis; intervertebral disc disorders; other back problems (9 sources) Pain in thoracic spine; Translations: [PAIN IN THORACIC SPINE] Resolved: 9 04-13-2016 Episodic Syncope (8 sources) Syncope; Translations: [Syncope and collapse] 10-04-2020 Episodic Urinary tract infections (15 sources) Urinary tract infectious disease; Translations: [Urinary tract infection, site not specified] Onset: 7 07-01-2016 Episodic Viral infection (13 sources) Herpes simplex; 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, unspecified] Onset: 7 01-25-2017 Chronic Viral infection (14 sources) Herpes zoster; Translations: [Zoster without complications] 12-01-2016 Episodic Past or Other Problems Problem Classification Problem Date Documented Date Episodic/Chronic Administrative/social admission (5 sources) Advance directive discussed with patient; Translations: [Other specified counseling] Onset: 04-19-2022 Episodic Biliary tract disease (6 sources) Biliary calculus; Translations: [Calculus of gallbladder without cholecystitis without obstruction] Onset: 06-15-2024 03-05-2024 Episodic Blindness and vision defects (9 sources) Lazy eye; Translations: [Unspecified amblyopia, right eye] Onset: 03-17-2020 04-17-2021 Episodic Complications of surgical procedures or medical care (7 sources) Urinary complications, not elsewhere classified; Translations: [URINARY COMPLICATIONS, NOT ELSEWHERE CLASSIFIED] Resolved: 12-31-2015 07-12-2012 Episodic Diabetes mellitus without complication (20 sources) Hyperglycemia; Translations: [Hyperglycemia, unspecified] Onset: 04-17-2021 04-17-2021 Episodic Nausea and vomiting (7 sources) Nausea; Translations: [Nausea] Onset: 03-22-2024 03-05-2024 Episodic Nonmalignant breast conditions (10 sources) Cyst of breast; Translations: [Solitary cyst of unspecified breast] Onset: 07-11-2011 12-01-2016 Episodic Other aftercare (1 source) Other fdc (current) drug therapy; Translations: [Medication management] Onset: 09-16-2021 Episodic Other connective tissue disease (1 source) Pain in limb; Translations: [Pain in limb] Resolved: 08-03-2010 08-03-2010 Episodic Other inflammatory condition of skin (9 sources) Transient acantholytic dermatosis; 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 [[place]]] Onset: 03-17-2020 03-17-2020 Episodic Other lower respiratory disease (5 sources) Dyspnea; Translations: [Shortness of breath] Onset: 05-07-2014 05-07-2014 Episodic Other screening for suspected conditions (not mental disorders or infectious disease) (20 sources) Patient encounter status; Translations: [Encounter for screening mammogram for malignant neoplasm of breast] Onset: 12-01-2016 Resolved: 08-03-2010 12-01-2016 Episodic Residual codes; unclassified (4 sources) Active living will ; Translations: [Other specified health status] Onset: 04-19-2022 04-19-2022 Episodic Residual codes; unclassified (1 source) Edema, unspecified; Translations: [Edema, unspecified type] Onset: 12-01-2016 Episodic Unclassified (5 sources) Tomography - chest abnormal; Translations: [Other nonspecific abnormal finding of lung field] Onset: 05-07-2014 05-09-2014 Episodic Unclassified (7 sources) history of bladder lift 10-16-2021 Unclassified (7 sources) history of eye lid surgery 10-16-2021 Unclassified (1 source) Deliveries (Parity); Translations: [Deliveries (Parity)] 04-13-2016 Unclassified (1 source) Pregnancies (); Translations: [Pregnancies ()] 04-13-2016 NEGATED: Highlighted row has been ruled out!Residual codes; unclassified (1 source) Disease Episodic Results Test Name Value Interpretation Reference Range Facility Abdomen/Pelvis WITH Contrast on 09-11-2024 Abdomen/Pelvis WITH Contrast [facility] Imaging Services [address] [place] [address] Abdomen/Pelvis WITH Contrast MR#: [id number] Acct: [id number] Name: SUGAR COONEY Rep #: [id number] : 1940 F 84 From: Celine figueroa MD PCP: Dr. Catherine Magana DO Status: REG CLI Study: Abdomen/Pelvis WITH Contrast Date of Exam: Exam# [id number] Ordering Dr: Catherine Magana DO PROCEDURE: ABDOMEN/PELVIS WITH CONTRAST 09/12/2024 REASON FOR EXAM: CT ABDOMEN AND PELVIS W/CONTRAST - MID ABD. PAIN, NAUSEA, VOMITIN TECHNIQUE: ABDOMEN/PELVIS WITH CONTRAST. Coronal and Sagittal reconstruction series were provided. ORAL CONTRAST TYPE: None. AMOUNT: mL CONTRAST: VOLUME: mL One or more dose reduction techniques were used (e.g., Automated exposure control, adjustment of the mA and/or kV according to patient size, use of iterative reconstruction technique. RADIATION DOSE SUMMARY: CTDlvol: mGy DLP: mGycm COMPARISON: none FINDINGS: Average sized liver showing homogenous parenchymal attenuation with segment VII 9 mm hypodense focal lesion that could represent small cyst versus hemangioma. No dilated intra or extra-hepatic biliary tracts. Gall bladder is not identified Normal appearance of the pancreas with clear surrounding fat planes. The spleen, adrenal glands and IVC are unremarkable. Vascular atheromatous calcifications Both kidneys are of average size and showing smooth outline with preserved parenchymal thickness. No renal calculi. No hydronephrosis. Distension of the urinary bladder showing no obvious masses. No obvious masses related to the pelvic viscera. Prominent left parametrial veins. The appendix is not identified. No right iliac inflammatory changes. Diffuse gastric wall thickening, possibly gastritis. Advise clinical correlation. Colonic fecal loading. Colonic diverticulosis. No diverticulitis. The small bowel loops are unremarkable. No ascites or free air. No obvious pathologically enlarged lymph nodes. Scanned osseous structures show no osseous destruction. Thoracolumbar spondylosis. Scanned lung bases show basal atelectatic changes. CT/Abdomen/Pelvis WITH Contrast IMPRESSION: Diffuse gastric wall thickening, possibly gastritis. Advise clinical correlation. Colonic fecal loading. Colonic diverticulosis. No diverticulitis. No other acute pelvi-abdominal abnormalities, collections or free air. Reading Location: [place] [address] CC: Dr. Catherine Magana DO Logistics Analyst: Signed [facility] Surgery Visit Reporton 06-14 Surgery Visit Report [facility] [address] [place] [address] OFFICE VISIT Date of Service: 06/14/24 MR#: [id number] Acct: [id number] Name: SUGAR COONEY Rep #: [id number] : 1940 Provider: GINNA forrester Age/Sex: 84/F Location: [facility] Status: Signed Intake Vital Signs 06/04/24 09:29 Height 5 ft Intake Visit Reasons: GALLBLADDER 3-10 Chief Complaint: Gallbladder 06/04 Is patient in pain?: No Allergies No Known Allergies Allergy (Verified 06/14/24 09:50) Medications ???Medication ???Instructions ???Recorded ???Confirmed ???Type ibandronate 150 mg tablet 150 mg PO QMONTH 03/05/24 06/14/24 History omeprazole 20 mg capsule,delayed 20 mg PO BID 03/05/24 06/14/24 His tory release rosuvastatin 5 mg tablet 5 mg PO QODAY 03/05/24 06/14/24 Hi story ascorbic acid (vitamin C) 500 mg 500 mg PO DAILY 05/24/24 06/14/24 History tablet (C-500) cranberry 500 mg capsule 500 mg PO BID 05/24/24 06/14/24 Hi story Have you fallen in the past year?: No Subjective Details: Patient is an 84 y/o F I am following s/p robotic-assisted laparoscopic cholecystectomy with ICG cholangiogram by Dr. Parker on 06/04/24. Patient tolerated the procedure well. She denies any nausea, vomiting, fever. She notes appetite and bowel habits are slowly returning to normal. Pathology demonstrated mild chronic cholecystitis with calculus. Objective Details: Abdomen- soft, non-tender. Incisions c/d/i. No erythema or infection noted. Coding Level of Care Code Global Post Op Diagnoses S/P cholecystectomy Z90.49 [facility] Medical History Wears hearing aid Arthritis High cholesterol Shortness of breath on exertion History of Holter monitoring History of echocardiogram Hypertension Nausea Cholelithiasis Wears glasses Post-menopausal Bladder disease Gastric reflux Non-smoker History of edema Cardiology follow-up encounter History of stress test Osteoporosis Blind right eye Eldorado's disease Surgical History (Updated 06/14/24 @ 09:51 by Sugar White) S/P cholecystectomy Hx of bladder repair surgery Hx of colonoscopy Hx of foot surgery History of blepharoplasty H/O carpal tunnel repair History of cardiac catheterization Hx of left cataract extraction History of strabismus surgery History of appendectomy Social History Smoking Status: Never smoker alcohol intake: never substance use type: does not use Assessment and Plan (No Qualifiers) Assessment and Plan (1) S/P cholecystectomy: Status: Acute Plan: Recommend no strenuous activity for an additional week Discussed signs of incisional infection Follow-up as needed 06/14/24 1547 Date Krystyna Izquierdo Signature: Date (if applicable) CC: Dr. Catherine Magana, DO [facility] Discharge Instructionon 05-26 Discharge Instruction [facility] Medical Records Department [address] [place] [address] Instructions for Home/Discharge Instructions 06/04/24 1219 MR#: [id number] Acct: [id number] Name: SUGAR COONEY Rep #: [id number] : 1940 84 From: Roberto Parker MD PCP: Dr. Catherine Magana DO Status:REG [facility] Discharge Instructions Diet Discharge Diet: Light diet - advance as tolerated Activity Discharge Activity: Return to Normal Activity May shower in (days): 1 Ice area for (Minutes): 30 Lifting Restrictions: Keep lifting under 20 pounds for 3 to 4 weeks Dressing / Incision Call your doctor if your incision/area has: Continuous Slow Oozing, Sudden Increased Bleeding, Increased Pain/ Swelling, Increased Redness, Foul Smelling Discharge and Swelling at the incision site Call your doctor if you observe: Fever of 101 or Higher Cleanse incision/area with: Soap Water Follow Up Care Please Follow Up With: Roberto Parker MD When: 2 weeks. Please call office to schedule appointment Test Results: Test results from this visit will be discussed in further detail at your follow-up appointment, if applicable. Discharge Plan Admission Primary Reason for Your Visit: Elective cholecystectomy Attending Provider: Roberto Parker Primary Care Provider: Catherine Magana Print Language: Turkmen Discharge Orders/Prescriptions Prescriptions: New oxycodone-acetaminophe n [Percocet] 5-325 mg tablet 1 tab PO Q8H PRN (Reason: pain) 4 Days Qty: 10 0RF Continued omeprazole 20 mg capsule,delayed release(DR/EC) 20 mg PO BID rosuvastatin 5 mg tablet 5 mg PO QODAY ibandronate 150 mg tablet 150 mg PO QMONTH ascorbic acid (vitamin C) [C-500] 500 mg tablet 500 mg PO DAILY cranberry 500 mg capsule 500 mg PO BID Rx Instructions: administer with meals Referrals / Follow Up: Catherine Magana DO [Primary Care Provider] - Disposition Disposition (needs filled in before D/C Order can be placed): Home, Self Care 06/04/24 1223 Roberto Parker MD CC: Dr. Catherine Magana DO Signed [facility] MR/POSTOP.ANEarmaan 06-04-2024 MR/POSTOP.[facility] Medical Records Department [address] [place] [address] Anesthesia Postop Eval I 06/04/24 1212 MR#: [id number] Acct: [id number] Name: SUGAR COONEY Rep #: [id number] : 1940 84 From: Marla Cancino CRNA PCP: Dr. Catherine Magana, DO Status:REG SDC Y Race: C Location: [place] [address] Anesthesia: Postop Eval I Current Vital Signs Temperature: 98.1 F Pulse Rate: 82 Blood Pressure: 147/76 Respiratory Rate: 16 Pulse Ox: 96 Oxygen Delivery Method: Nasal Cannula Oxygen Flow Rate (L/min): 2 Assessment Airway patent: Yes Spontaneous unlabored respirations: Yes Mental status: Awake nausea: No Vomiting: No Anesthesia Complication: No Fluid Hydration Crystalloid volume administer (ml): 800 Total IV fluid infused: 800 Progress Note Anesthesia document: Postop Eval 1 completed: Yes 06/04/24 1213 Date Marla Cancino SUPERVISING EDITOR TRAILER Cosigner Signature: Date CC: Signed [facility] MR/[id number] 06-04-2024 [facility] Medical Records Department [address] [place] [address] Anesthesia Postop Eval II 06/04/24 1225 MR#: [id number] Acct: [id number] Name: SUGAR COONEY Rep #: [id number] : 1940 84 From: Karson Perez MD PCP: Dr. Catherine Magana, DO Status:REG SDC Y Race: C Location: [place] [address] Anesthesia Postop Eval I Sum Postop Eval Completion status Anesthesia document: Postop Eval 1 completed: Yes Anesthesia Postop Eval I Summary Anesthesia Postop Eval I Summary: Anesthesia Postop Eval I: Assessment Summary Airway patent Yes 06/04/24 12:13 SUPERVISING EDITOR TRAILER.[email or web address] Spontaneous unlabored Yes 06/04/24 12:13 SUPERVISING EDITOR TRAILER.JSWI respirations Mental status Awake 06/04/24 12:13 SUPERVISING EDITOR TRAILER.JSWI nausea No 06/04/24 12:13 SUPERVISING EDITOR TRAILER.JSWI Vomiting No 06/04/24 12:13 SUPERVISING EDITOR TRAILER.JSWI Anesthesia Postop Eval I: Fluid Summary Crystalloid volume administer 800 06/04/24 12:13 SUPERVISING EDITOR TRAILER.JSWI (ml) Colloids volume administered ( ml) Blood Product volume administered (ml) Total IV fluid infused 800 06/04/24 12:13 SUPERVISING EDITOR TRAILER.JSWI Anesthesia Postop Eval I: Summary Notes Anesthesia Complication No 06/04/24 12:13 SUPERVISING EDITOR TRAILER.JSWI Anesthesia Complication Comment: Post-operative progress note Anesthesia: Postop Eval II Evaluation Mental status: Awake Pain Level: 0 nausea: No Vomiting: No 06/04/24 1225 Date Karson Mercedesignmaurilio Signature: Date CC: Signed [facility] Operative Reporton 5 Operative Report [facility] Medical Records Department [address] [place] [address] Operative Report 06/04/24 1223 MR#: [id number] Acct: [id number] Name: SUGAR COONEY Rep #: [id number] : 1940 84 From: Roberto Parker MD PCP: Dr. Catherine Magana, DO Status:REG [facility] Location: [place] [address] Problems Associated Problem List Diagnoses (1) Cholelithiasis: Procedures Digestive 40xxx-49xxx: 98666 Laparo cholecystectomy/graph Operative Report (Standard) Operative Information Date of Procedure: 06/04/24 Pre-Operative Diagnosis: Symptomatic cholelithiasis Post-Operative Diagnosis: Symptomatic cholelithiasis. Surgery/Procedure Performed: Robotic cholecystectomy with ICG cholangiography sponge fisherman: Yes Digital Art Director: Teo Kasper Tasks completed by assistant clinical nurse manager: Closing and Trocar Additional educational assistant?: No Type of Anesthesia: General and Local RN Documented Start/Stop Times: Operation Date: 06/04/24 10:35 Case Time Into Pre-Op 06/04/24 09:16 Out of Pre-Op 06/04/24 10:27 Anesthesia Start 06/04/24 10:30 Into Room 06/04/24 10:30 Procedure Start 06/04/24 10:56 Procedure End 06/04/24 11:57 Anesthesia End 06/04/24 12:08 Out of Room 06/04/24 12:08 Into Recovery 06/04/24 12:14 Procedure Start Time: 10:56 Procedure Stop Time: 11:57 Select all DRAINS/GRAFTS/IMPLANTS that apply: None Estimated Blood Loss: 5 mL Specimen collected: Yes Description of specimen(s) removed: Gallbladder Description of surgery: The patient is an 84-year-old female who was recently seen to the office with upper abdominal pain and complains of nausea especially after eating. She underwent right upper quadrant ultrasound show ing gallstones. HIDA scan was normal. We suspect that her symptoms were likely biliary colic in nature and recommended cholecystectomy. I offered her a robotic cholecystectomy. We discussed the details of the planned procedure and she wished to proceed. The patient was brought to the operating room today following informed consent. She was placed supine on the operative table with arms outstretched on arm boards. General anesthesia was induced. The abdomen is then prepped and draped in the usual sterile manner. Arms were comfortably tucked at her side. A 5 mm incision was made just below the umbilicus through which a 5 mm trocar was placed optically. This was placed without incident. Once in place the abdomen is then fully insufflated with CO2 gas There were no signs of bowel or vascular injury. Next an 8 mm trocar was placed on the right side of the abdomen under direct visualization. Next 2 additional 8 mm trocars were placed on the left side of the abdomen. The umbilical trocar was switched to an 8 mm trocar as well. The da Claudia robot was then brought onto the operative field and all ports were docked. 2 graspers and hook electrocautery were inserted. The gallbladder was identified in the right upper quadrant. This was grasped and reflected in cephalad direction. There was some adhesions to the undersurface of the gallbladder. These were taken down using hook electrocautery. The infundibulum of the gallbladder was identified and dissected out. The peritoneum on either side of the gallbladder was freed up. This allowed better mobilization of the infundibulum. This region was then carefully dissected. The cystic duct and cystic artery were both dissected out circumferentially. The lower third of the gallbladder was then dissected off the undersurface of the liver. The critical view of safety was able to be achieved. ICG cholangiography was utilized numerous times throughout the course of the procedure to control room helper in structure identification. Once both structures were identified going to the gallbladder and there were no other structures going to and from the gallbladder. These 2 structures were then clipped. 2 clips were placed proximally on the cystic duct and 1 was placed distally. A proximal and distal clip was placed on the cystic artery. Both structures were then transected using electrocautery. The gallbladder was then bovied off the undersurface of the liver using hook electrocautery connected to the hook. Once the gallbladder was free, it was placed into a bag and brought out through the left upper quadrant incision site. Liver bed was nicely hemostatic. The fascia at the trocar site with the gallbladder was removed was closed using 0 PDS with the aid of a fascial closure device. The remaining trocars were opened up and insufflation was allowed to escape. A total of 30 cc of local anesthetic were utilized. The skin incisions were closed with 4-0 Vicryl. Skin glue was applied as dressing. She was awakened from anesthesia and taken to recovery in good condition. An COLBY was utilized as a loan assistant. His role included assistance with docking the robot, instrument changes and assistance wi (more content not included)... [facility] Surgery Specimen Level IIIon 06-04-2024 Surgery Specimen Level III ---- Patient Age/Sex Location Account Attending Physician ---- SUGAR COONEY 84/F [facility] [id number] Dr. Roberto Parker MD ---- Specimen: [id number] Received: 06/04/24 Status: KELBY Faulkner Num: [id number] Spec Type: VENTURA Card Dr: Dr. Roberto Parker MD HEADER OPERATION: Robotic cholecystectomy with grams PRE-OP DIAGNOSIS: Cholelithiasis TISSUE SUBMITTED: Gallbladder ---- MICROSCOPIC DIAGNOSIS GALLBLADDER, CHOLECYSTECTOMY: * Mild chronic inflammation with cholelithiasis. MICROSCOPIC DESCRIPTION Slides are reviewed. GROSS DESCRIPTION The specimen is received in a container labeled with the patient's name and accession number. It is designated as gallbladder. It consists of one intact turgid gallbladder measuring 8.5 x 3 x 2.5cm. The serosal surface is pink-green and shiny. The cystic duct is closed with a plastic white clip. The clip is removed, and abundant green-yellow bile exudes from it. The gallbladder is opened completely, revealing one large oval green-black stone measuring 2cm in greatest dimension. The mucosa is velvety and green-red, without nodules, polyps or masses. The wall averages 2mm in thickness. RS1Lalo Barron 06/04/2024 CPT:76063 ---- Patient Age/Sex Location Account Attending Physician ---- SUGAR COONEY 84/F [facility] [id number] Dr. Roberto Parker MD ---- Signed (signature on file) Dr. Starr Gomez MD 06/06/24 1702 ---- [facility] Comment on above: Performed By: #### P SUIII #### [facility] [address] [place], [address] MR/Lexa 06-01-2024 MR/JOSH.[facility] Medical Records Department [address] [place] [address] PAT - Anesthesia 06/01/24 0931 MR#: [id number] Acct: [id number] Name: SUGAR COONEY Rep #: [id number] : 1940 84 From: Karson Perez MD PCP: Dr. Catherine Magana, DO Status:PRE SDC Y Race: C Location: [facility] Pre-Assessment Diagnosis/Proposed Procedure Planned Operative Procedure(s): ROBOTIC LAP ROSANNA WITH GRAMS Anesthesia History Anesthesia History - email manager: Anesthesia History - email manager Hx Hospitalization No 05/24/24 11:22 Any Problems With Anesthesia No 05/24/24 11:22 Cholinesterase deficiency No 05/24/24 11:22 You/Your Family Experience No 05/24/24 11:22 fever (hyperthermia) with Relationship Recent Exposure to Contagious No 09/09/22 06:27 Disease Does patient have nerve No 05/24/24 11:22 stimulator Patient instructed to have device shut off --Does patient have Pacemaker or ICD? When Was Last Pacemaker Check QUESTION #4 FULL TEXT: You/Your Family Experience fever (hyperthermia) with Anesthesia Last Oral Intake Last Oral intake: Last Oral Intake NPO since Meds taken in AM with sips of water? Meds patient instructed to take am of surgery PONV PONV - email manager: PONV - email manager Female Yes 05/24/24 11:22 HX of Motion Sickness No 05/24/24 11:22 HX of N/V After Surgery No 05/24/24 11:22 Non-Smoker Yes 05/24/24 11:22 Duration of Surgery greater No 05/24/24 11:22 than 60 minutes Number of Risk Factors 2 05/24/24 11:22 PONV Score Moderate Risk 05/24/24 11:22 Height Weight Height Weight: Anesthesia: Height Weight Height 5 ft 05/21/24 08:50 Respiratory Assessment Respiratory Assessment - email manager: Respiratory Tract Infection Hx - email manager Hx Respiratory Tract Infection No 05/24/24 11:22 STOP Sleep Apnea STOP Sleep Apnea - email manager: STOP Sleep Apnea - email manager Hx Hypertension Yes: MANY YRS AGO 05/24/24 11:22 Hx Sleep Apnea No 05/24/24 11:22 CPAP BIPAP Do you snore loudly (louder No 05/24/24 11:22 than talking or can be heard Do you often feel tired/ No 05/24/24 11:22 fatigued/ sleepy during daytime? Has anyone observed you stop No 05/24/24 11:22 breathing during sleep? STOP Results Negative 05/24/24 11:22 QUESTION #5 FULL TEXT : Do you snore loudly (louder than talking or can be heard through closed doors)? 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 Specify any problems Hx of Preganancy in last 3 No 05/24/24 11:22 Months Nurse Filling Out Transfusion DSCHRIBER 05/24/24 11:22 Questions: Date: 05/24/24 05/24/24 11:22 Time: 11:23 05/24/24 11:22 Patient unable to answer at this time (ie. confused, unrespo /Reproduction History /Reproductive History - email manager: /Reproductive Hx- email manager Hx Now No 05/24/24 11:22 Gestational Age (in weeks): EDC: Hx Hx Para Hx Section SAB No 05/24/24 11:22 Active Medications Active Medications: Current Medications Generic Name Dose Route Start Last Admin Trade Name Freq PRN Reason Stop Dose Admin Indocyanine Green 3.75 mg/ N/A 1.5 mls @ 999 mls/hr 06/04/24 09:50 IV 03/10/25 09:51 PREOP ONE [facility] Medical History (Updated 05/24/24 @ 11:31 by Iwona Dumont) Wears hearing aid Arthritis High cholesterol Shortness of breath on exertion History of Holter monitoring History of echocardiogram Hypertension Nausea Cholelithiasis Wears glasses Post-menopausal Bladder disease Gastric reflux Non-smoker History of edema Cardiology follow-up encounter History of stress test Osteoporosis Blind right eye Jose's disease Home Medications ???Medication ???Instructions ???Recorded ???Last Taken ???Type ibandronate 150 mg tablet 150 mg PO QMONTH 03/05/24 Unknown History omeprazole 20 mg capsule,delayed 20 mg PO BID 03/05/24 Unknown Hist ory release rosuv (more content not included)... [facility] Surgery Visit Reporton 05-21 Surgery Visit Report [facility] [address] [place] [address] OFFICE VISIT Date of Service: 05/21/24 MR#: [id number] Acct: [id number] Name: SUGAR COONEY Rep #: [id number] : 1940 Provider: Dr. Roberto suarez MD Age/Sex: 84/F Location: [facility] Status: Signed Intake Vital Signs 03/05/24 13:58 05/21/24 08:50 Height 5 ft 5 ft Weight: 173 lb 4 oz 173 lb BMI 33.8 33.7 BP 160/73 H 144/69 H Blood Pressure Location Lt brachial Rt brachial Position Sitting Sitting Respiration 18 18 Pulse 82 90 Pulse Source Monitor Monitor Temp 97.6 F L 97.6 F L Temp Source Temporal Temporal Pulse Oximetry (%) 96 98 Oxygen Delivery Method room air room air Intake Visit Reasons: HIDA SCAN RESULTS Chief Complaint: HIDA scan results Is patient in pain?: Yes (abd ) Allergies No Known Allergies Allergy (Verified 05/21/24 08:51) Medications ???Medication ???Instructions ???Recorded ???Confirmed ???Type ibandronate 150 mg tablet mg PO 03/05/24 05/21/24 History omeprazole 20 mg capsule,delayed 20 mg PO BID 03/05/24 05/21/24 His tory release rosuvastatin 5 mg tablet 5 mg PO QDAY 03/05/24 05/21/24 His tory Have you fallen in the past year?: No PFSH Medical History (Reviewed 05/21/24 @ 09: by Dr. 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 Roberto Parker MD) H/O carpal tunnel repair History of cardiac catheterization Hx of left cataract extraction History of strabismus surgery History of appendectomy Social History (Reviewed 05/21/24 @ by Dr. Roberto Parker MD) Smoking Status: Never smoker alcohol intake: never substance use type: does not use HPI HPI HPI: The patient is an 84-year-old female whom I had seen back in February for periodic nausea. At that time she presented with an ultrasound that showed a 2 cm gallstone. She really denied any significant right upper quadrant pain to clearly suggest biliary colic. I had her undergo a HIDA scan about a month ago. This showed an EF of about 73%. The HIDA scan did not reproduce any of her symptoms. However, she has noticed over the past several months that she has been having increasing frequency of these attacks of nausea and vomiting. She admits to some diffuse abdominal pain but no significant right upper quadrant pain per se. She denies any heartburn or reflux type symptoms. She presents today to discuss possible cholecystectomy further. She states that these attacks typically occur only in the evening. She still has not noticed any significant association with fatty foods per se ROS General General: No weight change, appetite, fatigue, colon cancer, breast cancer or weakness HEENT HEENT: No difficulty swallowing, eye injury, eye surgery, swollen glands or hoarseness Endo Endocrine: No thyroid disease, diabetes mellitus, thyroid cancer, Hair loss, heat intolerance or cold intolerance Skin Skin: No rash or changing moles Musc Musculoskeletal: No back problems, arthritis, rheumatoid arthritis, gout or joint pain Cardio Cardiovascular: No murmur, pacemaker, heart disease, atrial fibrillation, high blood pressure, heart attack, heart stent, palpitations, shortness of breat with exertion or chest pain Psych Psychiatric: No depression, anxiety or hearing voices Resp Respiratory: No shortness of breath, No sleep apnea, No cough, No COPD, No asthma, No emphysema and No wheezing Gastro Gastrointestinal: No abdominal pain, Yes nausea or vomiting, No diarrhea, No constipation, No blood in stool, Yes acid reflux, No hemorrhoids, No ulcers, Yes gallbladder problem and No black,tarry stools Yossi Hematologic: No blood thinners, No blood disorders, No bleeding, No anemia and No blood clots Neuro Neurologic: No numbness, No tingling and No weakness Exam Const General: cooperative, comfortable and no acute distress Nutritional Appearance: average body habitus Orientation: alert, awake and oriented x3 HENMT Head: normal to inspection Eyes General: appearance normal, both eyes and all related structures Neck Neck: normal visual inspection Resp Effort Inspection: normal respiratory effort GI Inspection: normal to inspection Other: No right upper quadrant tenderness to palpation. Assessment and Plan Assessment and Plan (1) Nausea: Status: Acute Plan: The patient is an 84-year-old female with persistent issues with nausea and vomiting. It sounds (more content not included)... [facility] Breast Limited Unilateralon 04-04-[address] [facility] [address] [place] [address] Breast Limited Unilateral MR#: [id number] Acct: [id number] Name: SUGAR COONEY Rep #: [id number] : 1940 F 84 From: Raul benítez MD PCP: Dr. Catherine Magana DO Status: REG CLI Study: Breast Limited Unilateral Date of Exam: Exam# [id number] Ordering Dr: Catherine Magana DO [id number] STUDY: ULTRASOUND BREAST - LEFT REASON FOR EXAM: Female, 84 years old. Abnormal screening mammogram. TECHNIQUE: Axial and longitudinal images of the LEFT breast were performed with a high resolution ultrasound transducer. # OF IMAGES: 41 COMPARISON: Comparison is made with prior mammogram dated March 2024 and prior sonogram of the left breast dated September 20, 2014. FINDINGS: LEFT Breast: The upper lateral aspect of the left breast was examined with ultrasound. No sonographic abnormality is seen. US/Breast Limited Unilateral IMPRESSION: No sonographic abnormality is seen. ASSESSMENT CATEGORY: BIRADS Category 1: Negative. A letter regarding these results will be sent to the patient by the facility within 30 days. Electronically Signed: Raul Brandt MD at 13:53 EST Reading Location ID and State: [address] [place] [address] , Service support , CC: Dr. Catherine Magana DO Logistics Analyst: Signed [facility] DIAG MAMM W/CAD, UNILATon DIAG M[facility]M [facility]CAD[facility] [address] [place] [id number] DIAG MAMM W/CAD, UNILAT MR#: [id number] Acct: [id number] Name: SUGAR COONEY Rep #: [id number] : 1940 F 84 From: Raul benítez MD PCP: Dr. Catherine Magana DO Status: REG CLI Study: DIAG MAMM W/CAD, UNILAT Date of Exam: 04/04/24 Exam# [id number] Ordering Dr: Catherine Magana DO [id number] MAMMOGRAPHY - UNILATERAL DIAGNOSTIC: LEFT BREAST REASON FOR EXAM: Female, 84 years old. Abnormal screening mammogram. PERTINENT HISTORY: Grandmother with breast cancer. Aunt with breast cancer. History of prior bilateral breast biopsies. TECHNIQUE: Compression spot views of the left breast in the mediolateral oblique and craniocaudad projections as well as 90 degree lateral view were obtained. CAD: Full Field Digital Mammography with Computer Added Detection was performed. COMPARISON: Comparison is made with prior study dated 2024. FINDINGS: Breast Composition: The breasts are heterogeneously dense, which may obscure small masses. There are no dominant masses or suspicious calcifications. No other significant abnormalities are identified. BI/DIAG MAMM W/CAD, UNILAT IMPRESSION: Negative unilateral diagnostic mammogram. Targeted sonographic correlation of the upper lateral aspect of the left breast is recommended for further evaluation. ASSESSMENT CATEGORY: BIRADS Category 0: Incomplete. Need additional imaging evaluation. A letter regarding these results will be sent to the patient by the facility within 30 days. Approximately 10% of breast cancers are not detected by mammography. A normal mammogram should not delay biopsy of a clinically suspicious abnormality. Electronically Signed: Raul Brandt MD at 10:07 EST Reading Location ID and State: [address] [place] [address] , Service support , CC: Dr. Catherine Magana DO Logistics Analyst: Signed [facility] SCRN MAMM (CAD)W/SHANNAN BILATo n 04-02-2024 SCRN MAMM (CAD)W/SHANNAN BILAT [facility] Services [address] [place] [address] SCRN MAMM (CAD)W/SHANNAN BILAT MR#: [id number] Acct: [id number] Name: SUGAR COONEY Rep #: [id number] : 1940 F 84 From: Raul benítez MD PCP: Dr. Catherine Fast, DO Status: REG CLI Study: SCRN MAMM (CAD)W/SHANNAN BILAT Date of Exam: 09/19 Exam# [id number] Ordering Dr: Catherine Magana DO [id number] MAMMOGRAPHY - BILATERAL SCREENING REASON FOR EXAM: Female, 84 years old. Routine annual screening examination. PERTINENT HISTORY: Grandmother with breast cancer. Aunt with breast cancer. History of bilateral breast aspirations. TECHNIQUE: Digital bilateral breast shannan (3D mammographic acquisition) in the CC and MLO projections. 2-D mediolateral oblique (MLO) and craniocaudad (CC) views of both breasts were obtained. CAD: Full Field Digital Mammography with Computer Added Detection was performed. COMPARISON: Comparison is made with prior study dated March 31, 2023 and September 25, 2015. FINDINGS: Breast Composition: The breasts are heterogeneously dense, which may obscure small masses. Focal architectural distortion in the anterior upper aspect of the left breast as seen on the mediolateral oblique view. This most likely represents superimposition of tissue although the patient will be recalled for additional views including 90 degree lateral view of the left breast and compression spot views. No other significant abnormalities are identified. BI/SCRN MAMM (CAD)W/SHANNAN BILAT IMPRESSION: Focal area of architectural distortion the anterior superior aspect of the left breast as seen on the mediolateral oblique view. The patient will be recalled for additional Recall Side: Left Breast ASSESSMENT CATEGORY: BIRADS Category 0: Incomplete. Need additional imaging evaluation. A letter regarding these results will be sent to the patient by the facility within 30 days. Approximately 10% of breast cancers are not detected by mammography. A normal mammogram should not delay biopsy of a clinically suspicious abnormality. [id number] Electronically Signed: Raul Brandt MD at 9:38 EST , CC: Dr. Catherine Magana DO Logistics Analyst: Signed [facility] Hepatobilliary Img w/Pharm I nton 03-29-2024 Hepatobilliary Img w/Pharm Int [facility] [address] [place], [place] [address] Hepatobilliary Img w/Pharm Int MR#: [id number] Acct: [id number] Name: SUGAR COONEY Rep #: [id number] : 1940 F 84 From: Moo Medina PCP: Dr. Catherine Magana DO Status: REG CLI Study: Hepatobilliary Img w/Pharm Int Date of Exam: 0 03/29/24 Exam# [id number] Ordering Dr: Roberto Parker MD [id number] CLINICAL: 84-year-old female with history of chronic nausea and apparent documented cholelithiasis. RADIONUCLIDE HEPATOBILIARY SCINTIGRAPHY COMPARISON: Abdominal ultrasound report 02/21/2024 FINDINGS: Following the intravenous administration of 5.7 mCi of 99m Tc Mebrofenin, hepatobiliary images reveal: 1. Relatively prompt and homogeneous radiopharmaceutical concentration is noted by a normal sized liver. No parenchymal defects are identified. 2. Gallbladder activity is identified at 30 minutes post radiopharmaceutical administration. 3. Small intestinal tract is observed by 60 minutes post tracer injection. 4. Washout of the radiopharmaceutical by the hepatic parenchyma appears qualitatively normal. Cholecystokinin (0.02 ug/kg) was administered intravenously over a 30-minute period. The post CCK gallbladder ejection fraction calculated at 20 minutes following Cholecystokinin administration was noted to be 73.0 % (normal greater than 35%). During 30 minutes of post CCK imaging, there is no scintigraphic evidence of reflux of the radiotracer into the common hepatic duct or refilling of the gallbladder. NM/Hepatobilliary Img w/Pharm Int IMPRESSION: 1. NORMAL 99m Tc Mebrofenin hepatobiliary imaging examination with Cholecystokinin. A. A gallbladder ejection fraction calculated to be greater than 35% following the administration of Cholecystokinin makes the probability of functional hepatobiliary disease (gallbladder and/or sphincter of Oddi dyskinesia) and/or organic hepatobiliary disease (chronic acalculous cholecystitis and/or cystic duct syndrome) to be low. (Bridger Matthews et al, Journal of Nuclear Medicine 32:1695, 1991). Electronically Signed: Moo Farmer DO at 20:57 EST , CC: Dr. Catherine Magana DO; Dr. Roberto Parker MD Logistics Analyst: Signed [facility] Surgery Visit Reporton 03-05 Surgery Visit Report [facility] [address] [place] [address]. [address] [place] [address] OFFICE VISIT Date of Service: 03/05/24 MR#: [id number] Acct: [id number] Name: SUGAR COONEY Rep #: [id number] : 1940 Provider: Dr. Roberto suarez MD Age/Sex: 84/F Location: [facility] Status: Signed Intake Vital Signs 03/31/23 15:10 03/05/24 13:58 Height 5 ft 1 in 5 ft Weight: 173 lb 4 oz BMI 33.8 BP 160/73 H Blood Pressure Location Lt brachial Position Sitting Respiration 18 Pulse 82 Pulse Source Monitor Temp 97.6 F L Temp Source Temporal Pulse Oximetry (%) 96 Oxygen Delivery Method room air Intake Visit Reasons: GALLSTONES Chief Complaint: gallstones Is patient in pain?: No Allergies No Known Allergies Allergy (Verified 03/05/24 13:59) Medications ???Medication ???Instructions ???Recorded ???Confirmed ???Type ibandronate 150 mg tablet mg PO 03/05/24 03/05/24 History omeprazole 20 mg capsule,delayed 20 mg PO BID 03/05/24 03/05/24 History release rosuvastatin 5 mg tablet 5 mg PO QDAY 03/05/24 03/05/24 History Have you fallen in the past year?: No PFSH Medical History (Updated 03/05/24 @ 13:57 by Chasidy Dias LPN) Acid reflux Nausea Cholelithiasis Wears glasses Post-menopausal Bladder disease Gastric reflux Non-smoker History of edema Cardiology follow-up encounter History of stress test Osteoporosis Blind right eye [place]'s disease history of eye lid surgery History of neuroma history of bladder lift Surgical History (Updated 03/05/24 @ 13:58 by Chasidy Dias LPN) H/O carpal tunnel repair History of cardiac catheterization Hx of left cataract extraction History of strabismus surgery History of appendectomy Social History (Updated 03/05/24 @ 13:58 by Chasidy Dias LPN) Smoking Status: Never smoker alcohol intake: never substance use type: does not use HPI HPI HPI: The patient is a 84-year-old female who is being seen today for gallstones and nausea. It sounds as though she has been having periodic nausea for a couple of years. She states that this happens once every 3 months or so. She denies any abdominal pain associated with it. She denies any clear association with fatty or greasy foods. She brought this to the attention of her PCP who ordered an ultrasound of the right upper quadrant. She did have 1 solitary 2 cm gallstone. She denies any symptoms or problems currently. ROS General General: No weight change, appetite, fatigue, colon cancer, breast cancer or weakness HEENT HEENT: No difficulty swallowing, eye injury, eye surgery, swollen glands or hoarseness Endo Endocrine: No thyroid disease, diabetes mellitus, thyroid cancer, Hair loss, heat intolerance or cold intolerance Skin Skin: No rash or changing moles Musc Musculoskeletal: No back problems, arthritis, rheumatoid arthritis, gout or joint pain Cardio Cardiovascular: No murmur, pacemaker, heart disease, atrial fibrillation, high blood pressure, heart attack, heart stent, palpitations, shortness of breat with exertion or chest pain Psych Psychiatric: No depression, anxiety or hearing voices Resp Respiratory: No shortness of breath, No sleep apnea, No cough, No COPD, No asthma, No emphysema and No wheezing Gastro Gastrointestinal: No abdominal pain, Yes nausea or vomiting, No diarrhea, No constipation, No blood in stool, Yes acid reflux, No hemorrhoids, No ulcers, Yes gallbladder problem and No black,tarry stools Yossi Hematologic: No blood thinners, No blood disorders, No bleeding, No anemia and No blood clots Neuro Neurologic: No numbness, No tingling and No weakness Exam Const General: cooperative, healthy appearing, comfortable and no acute distress Eyes General: appearance normal, both eyes and all related structures Resp Effort Inspection: normal respiratory effort GI Inspection: normal to inspection Assessment and Plan Assessment and Plan (1) Nausea: Status: Acute Plan: The patient is a 84-year-old female who is being seen today for nausea going on for about the past 3 years. This occurs every 3 months or so but she have 2 episodes in January. She denies any abdominal pain and denies any other symptoms to suggest biliary colic. She did have a gallstone noted on ultrasound but no other abnormal findings. I have suggested HIDA scan and follow-up. She is agreeable this plan. Orders: Orders Hepatobilliary Img w/Pharm Int Today K80.20 - Calculus of gallbladder without cholecystitis without obstruction Coding Level of Care Code Off vis,new,level 3 Diagnoses Nausea R11.0 Clinical Quality Measures Falls Risk Screening/Assistive Devices Have you fallen in the past year?: No 03/05/24 1540 Date (more content not included)... [facility] Abdomen Limitedon 02-21-[address] [facility] [address] [place] [address] Abdomen Limited MR#: [id number] Acct: [id number] Name: SUGAR COONEY Rep #: [id number] : 1940 F 84 From: Louie Catalan MD PCP: Dr. Catherine Magana DO Status: REG CLI Study: Abdomen Limited Date of Exam: 02/21/24 Exam# [id number] Ordering Dr: Catherine Magana DO [id number] EXAM: US Abdomen Limited (quadrant) INDICATION: Female, 84 years old. Nausea and vomiting TECHNIQUE: Griggs-scale and color Doppler imaging was performed of the abdomen COMPARISON: No relevant priors. FINDINGS: LIVER: The liver measures 13 cm in its mid clavicular line. Normal echogenicity and echotexture parenchyma. There is a 10 mm echogenic focus within the right hepatic lobe without posterior acoustic shadowing. No intrahepatic biliary duct dilatation.. . GALLBLADDER AND BILIARY TREE: Gallbladder demonstrates mild luminal distention without wall thickening or pericholecystic fluid. There is a solitary intraluminal stone measuring up to 2 cm in diameter. Ringdown artifact is noted from the gallbladder wall. Sonographic Craft sign is negative. Common bile duct measures 6 mm in diameter. No intraductal stone. PANCREAS: Pancreas is visualized and is normal. No peripancreatic fluid.. KIDNEYS: Right kidney measures 10.8 x 4.6 x 4.0 cm. Renal cortex measures 1.5 cm in thickness. No focal lesion. Normal parenchymal echogenicity. No visualized nephrolithiasis. No hydronephrosis. VESSELS: Abdominal aorta and inferior vena cava are obscured by overlying bowel gas. ASCITES: None US/Abdomen Limited IMPRESSION: 1. Cholelithiasis with no evidence of acute cholecystitis. 2. Adenomyomatosis of the gallbladder. 3. 10 mm hemangioma within the right inferior hepatic lobe. Electronically Signed: Louie Catalan MD at 2:18 EST , CC: Dr. Catherine Magana DO Logistics Analyst: Signed [facility] CNOVon 10-22-2022 CNOV Office Visit ([facility] ) SUGAR COONEY ([id number]) 1940 F Date Time Provider Department 10/22/22 7:15 AM FARZANA LARSEN [facility] During your visit today, we recorded the following information about you: Temperature Pulse Respiration Blood pressure 96.9 degrees 78/minute 16/minute 118/70 Weight 79.4 kg Farzana Larsen APRN.[employer] 10/22/2022 8:33 AM Signed This note was created using Thinknumriter. Subjective Sugar Cooney is a 82 year [...] history is provided by the patient. No language teacher was used. Hand Pain Pain location: right [...] Brother Hypertension Brother Breast Cancer Maternal Grandmother (more content not included)... [facility] XR HAND 3V PA/LAT/OBL RTon 0 10-22-2022 XR HAND 3V PA/LAT/OBL RT * * *Final Report* * * DATE OF EXAM: Oct 22 2022 8:10AM WOX [id number] - XR HAND 3V PA/LAT/OBL RT / PROCEDURE REASON: Swelling of right hand * * * * Physician Interpretation * * * * EXAM: XR HAND 3V PA/LAT/OBL RT HISTORY: Swelling of right hand pain in base of right thumb started Tuesday with swelling on dorsal side of hand and fingers no inj VIEWS: PA, oblique and lateral. COMPARISON: No relevant prior study available FINDINGS: No dislocation, osteolysis or acute fracture. Soft tissue swelling. Triscaphe joint space narrowing and large calcium deposit adjacent to the trapezium. First carpometacarpal joint space appears maintained. Narrowed thumb interphalangeal joint space with osteophytes and radial subluxation of the terminal phalanx. Narrowed proximal and distal interphalangeal joint spaces with mild spurring and small periarticular calcifications. IMPRESSION: Osteoarthritis and periarticular calcium deposits. Large calcium deposit adjacent to the trapezium. Soft tissue swelling. Logistics Analyst: FELICITA Transcribe Date/Time: Oct 22 2022 8:11A Dictated by : Junie CHAUDHARI MD This examination was interpreted and the report reviewed and electronically signed by: Junie CHAUDHARI MD on Oct 22 2022 8:23AM EST [id number] Normal [facility] XR HAND GENERAL 3V PA/LAT/OB L RIGHTon 10-22-2022 [facility] XR Hand - right PA and Later al and Obliqueon 10-22-2022 IMPRESSION: Osteoarthritis and periarticular calcium deposits. Large calcium deposit adjacent to the trapezium. Soft tissue swelling. Logistics Analyst: FELICITA Transcribe Date/Time: Oct 22 2022 8:11A Dictated by : Junie CHAUDHARI MD This examination was interpreted and the report reviewed and electronically signed by: Junie CHAUDHARI MD on Oct 22 2022 8:23AM [facility] DIVISION OF RADIOLOGY * * *Final Report* * * DATE OF EXAM: Oct 22 2022 8:10AM WOX 5346 - XR HAND 3V PA/LAT/OBL RT / PROCEDURE REASON: Swelling of right hand * * * * Physician Interpretation * * * * EXAM: XR HAND 3V PA/LAT/OBL RT HISTORY: Swelling of right hand pain in base of right thumb started Tuesday with swelling on dorsal side of hand and fingers no inj VIEWS: PA, oblique and lateral. COMPARISON: No relevant prior study available FINDINGS: No dislocation, osteolysis or acute fracture. Soft tissue swelling. Triscaphe joint space narrowing and large calcium deposit adjacent to the trapezium. First carpometacarpal joint space appears maintained. Narrowed thumb interphalangeal joint space with osteophytes and radial subluxation of the terminal phalanx. Narrowed proximal and distal interphalangeal joint spaces with mild spurring and small periarticular calcifications. DIVISION OF RADIOLOGY Provider, [facility] - 10/22/2022 * * *Final Report* * * DATE OF EXAM: Oct 22 2022 8:10AM WOX 5346 - XR HAND 3V PA/LAT/OBL RT / PROCEDURE REASON: Swelling of right hand * * * * Physician Interpretation * * * * EXAM: XR HAND 3V PA/LAT/OBL RT HISTORY: Swelling of right hand pain in base of right thumb started Tuesday with swelling on dorsal side of hand and fingers no inj VIEWS: PA, oblique and lateral. COMPARISON: No relevant prior study available FINDINGS: No dislocation, osteolysis or acute fracture. Soft tissue swelling. Triscaphe joint space narrowing and large calcium deposit adjacent to the trapezium. First carpometacarpal joint space appears maintained. Narrowed thumb interphalangeal joint space with osteophytes and radial subluxation of the terminal phalanx. Narrowed proximal and distal interphalangeal joint spaces with mild spurring and small periarticular calcifications. IMPRESSION IMPRESSION: Osteoarthritis and periarticular calcium deposits. Large calcium deposit adjacent to the trapezium. Soft tissue swelling. Logistics Analyst: FELICITA Transcribe Date/Time: Tien 28 2023 8:11A Dictated by : Junie CHAUDHARI MD This examination was interpreted and the report reviewed and electronically signed by: Junie CHAUDHARI MD on Oct 22 2022 8:23AM EST [facility] Radiology Study observation (narrative) [facility] XR Hand - right PA and Later al and ObliqueOrdered By: [facility] Provider on 10-22-2022 [facility] CNOVon 10-18-2022 CNOV Office Visit (FAMPWS ) SUGAR COONEY ([id number]) 1940 F Date Time Provider Department 10/18/22 12:20 PM [facility] D[facility] During your visit today, we recorded the following information about you: Temperature Pulse Respiration Blood pressure 97 degrees 82/minute 16/minute 136/80 Weight 79.4 kg Maria Dolores Garcia PA-C 10/18/2022 2:20 PM Signed Chief Complaint Patient presents with: 6 Month [...] blood sugar 04/17/2021 GERD without esophagitis 09/09/2020 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 Meeks, benign skin rash [...] nourished.. Neck: Supple, no adenopathy; thyroid symmetric, norm (more content not included)... Normal [facility] HbA1c (Bld)on 10-11-2022 Average glucose Estimated from glycated hemoglobin (Bld) [Mass/Vol] 111 mg/dL Normal [facility] Comment on above: Order Comment: Justina cazares Type: BLOOD SPECIMENOrdering Facility: [facility] Address: [address] [place] [address] Result Comment: eAG: (Estimated average glucose) is a calculated value from HgbA1c and is commercial representative of the average blood glucose level in the last 2-3 month period. Performed By: #### 5 5454-3 ####[facility] LABCLIA [id number] [facility] [id number] [address] [place] HbA1c (Bld) [Mass fraction] 5.5 % Normal 4.3-5.6 [facility] Comment on above: Order Comment: Justina cazares Type: BLOOD SPECIMENOrdering Facility: [facility] Address: [address] [place], [place] [address] Result Comment: Amer ican Diabetes Association guidelines indicate that patients with HgbA1c in the range 5.7-6.4% are at increased risk for development of diabetes, and intervention by lifestyle modification may be beneficial. HgbA1c greater or equal to 6.5% is considered diagnostic of diabetes. Performed By: #### 5 5454-3 ####[facility] LABCLIA [id number] [place] [id number] [facility] CNOVon 06-18-2022 CNOV Office Visit (FAMPWS ) SUGAR COONEY ([id number]) 1940 F Date Time Provider Department 06/18/22 12:00 PM [facility] During your visit today, we recorded the following information about you: Pulse Respiration Blood pressure Weight 80/minute 14/minute 122/74 82.1 kg Virgilio Rojas MD 06/18/2022 4:35 PM Addendum Chief Complaint No chief complaint on file. 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 Normal [facility] CNOVon 04-19-2022 CNOV Office Visit (FAMPWS ) EROSSUGAR Rae ([id number]) 1940 F Date Time Provider Department 04/19/22 1:20 PM VIRGILIO ROJAS FAMPWS During your visit today, we recorded the following information about you: Pulse Respiration Blood pressure Weight 72/minute 16/minute 120/80 81.6 kg Height 1.537 m Virgilio Rojas MD 04/19/2022 6:19 PM Signed Medicare Yearly Visit Medical B eligibilty date [...] HX Left 07/24/2018 COLONOSCOP W/ OR W/O [facility] 08/16/2007 repeat 10 ys COLONOSCOP W/ OR W/O [facility] SPEC 12/29/2017 Colonoscopy 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 Normal [facility] CBC W Auto Differential pane l (Bld)on 04-12-2022 Basophils (Bld) [#/Vol] 0.05 10*3/uL Normal <0.11 [facility] Comment on above: Order Comment: Speci men Type: BLOOD SPECIMENOrdering Facility: [facility] Address: [address] Performed By: #### 5 7021-8 ####[facility] LABCLIA [id number] [address] STATES [facility] Basophils/100 WBC (Bld) 0.8 % Normal [facility] Comment on above: Order Comment: Speci men Type: BLOOD SPECIMENOrdering Facility: [facility] Address: [address] [place] [address] Performed By: #### 5 7021-8 ####[facility] LABCLIA [id number] [address] STATES [facility] Differential cell count method Nom (Bld) Auto Normal [facility] Comment on above: Order Comment: Speci men Type: BLOOD SPECIMENOrdering Facility: [facility] Address: [address] [place], [place] [address] Performed By: #### 5 7021-8 ####[facility] LABCLIA [id number] [place] [address] [place] Eosinophils (Bld) [#/Vol] 0.15 10*3/uL Normal <0.46 [facility] Comment on above: Order Comment: Speci men Type: BLOOD SPECIMENOrdering Facility: [facility] Address: [address] [place], [place] [address] Performed By: #### 5 7021-8 ####[facility] LABCLIA [id number] [address] [place] Eosinophils/100 WBC (Bld) 2.3 % Normal [facility] Comment on above: Order Comment: Speci men Type: BLOOD SPECIMENOrdering Facility: [facility] Address: [address] [place], [place] [address] Performed By: #### 5 7021-8 ####[facility] LABCLIA [id number] [address] [place] Erythrocyte distribution width (RBC) [Ratio] 12.7 % Normal 11.5-15.0 [facility] Comment on above: Order Comment: Speci men Type: BLOOD SPECIMENOrdering Facility: [facility] Address: [address] [place] [address] Performed By: #### 5 7021-8 ####[facility] LABIA [id number] [place] [address] [place] Hematocrit (Bld) [Volume fraction] 46.4 % High 36.0-46.0 [facility] Comment on above: Order Comment: Speci men Type: BLOOD SPECIMENOrdering Facility: [facility] Address: [address] [place] [address] Performed By: #### 5 7021-8 ####[facility] LABIA [id number] [place] [address] [place] Hemoglobin (Bld) [Mass/Vol] 15.0 g/dL Normal 11.5-15.5 [facility] Comment on above: Order Comment: Speci men Type: BLOOD SPECIMENOrdering Facility: [facility] Address: [address] [place], [place] [address] Performed By: #### 5 7021-8 ####[facility] LABIA [id number] [place] [address] [place] Immature granulocytes (Bld) [#/Vol] 10*3/uL Normal <0.10 [facility] Comment on above: Order Comment: Speci men Type: BLOOD SPECIMENOrdering Facility: [facility] Address: [address] [place], [place] [address] Performed By: #### 5 7021-8 ####[facility] LABIA [id number] [place] [address] [place] Immature granulocytes/100 WBC (Bld) 0.3 % Normal [facility] Comment on above: Order Comment: Speci men Type: BLOOD SPECIMENOrdering Facility: [facility] Address: [address] Performed By: #### 5 7021-8 ####[facility] LABCLIA [id number] [place] [address] [place] Lymphocytes (Bld) [#/Vol] 3.16 10*3/uL Normal 1.00-4.00 [facility] Comment on above: Order Comment: Speci men Type: BLOOD SPECIMENOrdering Facility: [facility] Address: [address] Performed By: #### 5 7021-8 ####[facility] LABCLIA [id number] [place] [address] [place] Lymphocytes/100 WBC (Bld) 47.4 % Normal [facility] Comment on above: Order Comment: Speci men Type: BLOOD SPECIMENOrdering Facility: [facility] Address: [address] [place], [place] [address] Performed By: #### 5 7021-8 ####[facility] LABCLIA [id number] [place] [address] [place] MCH (RBC) [Entitic mass] 30.3 pg Normal 26.0-34.0 [facility] Comment on above: Order Comment: Speci men Type: BLOOD SPECIMENOrdering Facility: [facility] Address: [address] [place], [place] [address] Performed By: #### 5 7021-8 ####[facility] LABCLIA [id number] [place] [address] [place] MCHC (RBC) [Mass/Vol] 32.3 g/dL Normal 30.5-36.0 [facility] Comment on above: Order Comment: Speci men Type: BLOOD SPECIMENOrdering Facility: [facility] Address: [address] [place], [place] [address] Performed By: #### 5 7021-8 ####[facility] LABCLIA [id number] [place] [address] [place] MCV (RBC) [Entitic vol] 93.7 fL Normal 80.0-100.0 [facility] Comment on above: Order Comment: Speci men Type: BLOOD SPECIMENOrdering Facility: [facility] Address: [address] [place] [address] Performed By: #### 5 7021-8 ####[facility] LABCLIA [id number] [place] [address] [place] Monocytes (Bld) [#/Vol] 0.43 10*3/uL Normal <0.87 [facility] Comment on above: Order Comment: Speci men Type: BLOOD SPECIMENOrdering Facility: [facility] Address: [address] [place] [address] Performed By: #### 5 7021-8 ####[facility] LABCLIA [id number] [address] [place] [facility] Monocytes/100 WBC (Bld) 6.5 % Normal [facility] Comment on above: Order Comment: Speci men Type: BLOOD SPECIMENOrdering Facility: [facility] Address: [address] [place] [address] Performed By: #### 5 7021-8 ####[facility] LABCLIA [id number] [place] [address] [place] Neutrophils (Bld) [#/Vol] 2.85 10*3/uL Normal 1.45-7.50 [facility] Comment on above: Order Comment: Speci men Type: BLOOD SPECIMENOrdering Facility: [facility] Address: [address] [place], [place] [address] Performed By: #### 5 7021-8 ####[facility] LABCLIA [id number] [address] [place] Neutrophils/100 WBC (Bld) 42.7 % Normal [facility] Comment on above: Order Comment: Speci men Type: BLOOD SPECIMENOrdering Facility: [facility] Address: [address] Performed By: #### 5 7021-8 ####[facility] LABIA [id number] [place] [address] [place] Nucleated RBC (Bld) [#/Vol] 10*3/uL Normal <0.01 [facility] Comment on above: Order Comment: Speci men Type: BLOOD SPECIMENOrdering Facility: [facility] Address: [address] Performed By: #### 5 7021-8 ####[facility] LABIA [id number] [place] [address] [place] Nucleated RBC/100 WBC (Bld) [Ratio] 0.0 /100 WBC Normal [facility] Comment on above: Order Comment: Speci men Type: BLOOD SPECIMENOrdering Facility: [facility] Address: [address] Performed By: #### 5 7021-8 ####[facility] LABIA [id number] [place] [address] [place] Platelet mean volume (Bld) [Entitic vol] 9.5 fL Normal 9.0-12.7 [facility] Comment on above: Order Comment: Speci men Type: BLOOD SPECIMENOrdering Facility: [facility] Address: [address] [place] [address] Performed By: #### 5 7021-8 ####[facility] LABIA [id number] [place] [address] [place] Platelets (Bld) [#/Vol] 263 10*3/uL Normal 150-400 [facility] Comment on above: Order Comment: Speci men Type: BLOOD SPECIMENOrdering Facility: [facility] Address: [address] [place] [address] Performed By: #### 5 7021-8 ####[facility] LABCLIA [id number] [place] [address] [place] RBC (Bld) [#/Vol] 4.95 10*6/uL Normal 3.90-5.20 [facility] Comment on above: Order Comment: Speci men Type: BLOOD SPECIMENOrdering Facility: [facility] Address: [address] Performed By: #### 5 7021-8 ####[facility] LABCLIA [id number] [place] [address] [place] WBC (Bld) [#/Vol] 6.66 10*3/uL Normal 3.70-11.00 [facility] Comment on above: Order Comment: Speci men Type: BLOOD SPECIMENOrdering Facility: [facility] Address: [address] Performed By: #### 5 7021-8 ####[facility] LABCLIA [id number] [place] [address] [place] Comprehensive metabolic 2000 panelon 04-12-2022 Albumin [Mass/Vol] 4.2 g/dL Normal 3.9-4.9 [facility] Comment on above: Order Comment: Speci men Type: BLOOD SPECIMEN [facility] Address: [address] [place] [address] Performed By: #### 2 4323-8, , 2131-11 #### [facility] CLIA [id number] [address] [place] [address] [place] ALP [Catalytic activity/Vol] 70 U/L Normal 34-123 [facility] Comment on above: Order Comment: Speci men Type: BLOOD SPECIMEN [facility] Address: [address] [place] [address] Performed By: #### 2 4323-8, , 2131-11 #### [facility] CLIA [id number] [address] [place] [address] [place] ALT [Catalytic activity/Vol] 12 U/L Normal 7-38 [facility] Comment on above: Order Comment: Speci men Type: BLOOD SPECIMEN [facility] Address: [address] [place] [address] Performed By: #### 2 4323-8, , 2131-11 #### [facility] CLIA [id number] [address] [place] [address] [place] Anion gap [Moles/Vol] 10 mmol/L Normal 9-18 [facility] Comment on above: Order Comment: Speci men Type: BLOOD SPECIMEN [facility] Address: [address] [place] [address] Performed By: #### 2 432-8, , 2131-11 #### [facility] CLIA [id number] [address] [place] [address] [place] AST [Catalytic activity/Vol] 17 U/L Normal 13-35 [facility] Comment on above: Order Comment: Speci men Type: BLOOD SPECIMEN [facility] Address: [address] [place] [address] Performed By: #### 2 4323-8, , 2131-11 #### [facility] CLIA [id number] [address] [place] [address] [place] Bilirubin [Mass/Vol] 0.7 mg/dL Normal 0.2-1.3 [facility] Comment on above: Order Comment: Speci men Type: BLOOD SPECIMEN Order[facility] Address: [address] [place], [place] [address] Performed By: #### 2 4323-8, , 2131-11 #### [facility] CLIA [id number] [address] [place] [address] [place] Calcium [Mass/Vol] 9.7 mg/dL Normal 8.5-10.2 [facility] Comment on above: Order Comment: Speci men Type: BLOOD SPECIMEN [facility] Address: [address] [place] [address] Performed By: #### 2 4323-8, , 2131-11 #### [facility] CLIA [id number] [address] [place] [address] [place] Chloride [Moles/Vol] 104 mmol/L Normal 97-105 [facility] Comment on above: Order Comment: Speci men Type: BLOOD SPECIMEN [facility] Address: [address] [place] [address] Performed By: #### 2 4328, , 2131-11 #### [facility] CLIA [id number] [address] [place] [address] [place] CO2 [Moles/Vol] 28 mmol/L Normal 22-30 [facility] Comment on above: Order Comment: Speci men Type: BLOOD SPECIMEN Order[facility] Address: [address] [place], [place] [address] Performed By: #### 2 432-8, , 2131-11 #### [facility] CLIA [id number] [address] [place] [address] [place] Creatinine [Mass/Vol] 0.68 mg/dL Normal 0.58-0.96 [facility] Comment on above: Order Comment: Speci men Type: BLOOD SPECIMEN Order[facility] Address: [address] [place], [place] [address] Performed By: #### 2 432-8, , 2131-11 #### [facility] CLIA [id number] [address] [place] [address] [place] ESTIMATED GLOMERULAR FILTRATION RATE 88 mL/min/1.73m??? Normal >=60 [facility] Comment on above: Order Comment: Justina cazares Type: BLOOD SPECIMEN [facility] Address: [place] [address] Result Comment: Nhi mated Glomerular Filtration Rate (eGFR) is calculated using the 2020 CKD-EPI creatinine equation. This equation utilizes serum creatinine, sex, and age as parameters. The creatinine assay has traceable calibration to isotope dilution-mass spectrometry. Refer to KDIGO guidelines for clinical interpretation. In patients with unstable renal function, e.g. those with acute kidney injury, the eGFR may not accurately reflect actual GFR. Performed By: #### 2 4323-8, , 2131-11 #### [facility] CLIA [id number] [address] [address] [place] Glucose [Mass/Vol] 106 mg/dL High 74-99 [facility] Comment on above: Order Comment: Justina cazares Type: BLOOD SPECIMEN [facility] Address: [place] [address] Result Comment: The [place] Diabetes Association (ADA) provides guidance for cutoff values for fasting glucose and random glucose. The ADA defines fasting as no caloric intake for at least 8 hours. Fasting plasma glucose results between 100 to 125 mg/dL indicate increased risk for diabetes (prediabetes). Fasting plasma glucose results greater than or equal to 126 mg/dL meet the criteria for diagnosis of diabetes. In the absence of unequivocal hyperglycemia, results should be confirmed by repeat testing. In a patient with classic symptoms of hyperglycemia or hyperglycemic crisis, random plasma glucose results greater than or equal to 200 mg/dL meet the criteria for diagnosis of diabetes. Reference: Standards of Medical Care in Diabetes 2016, [place] Diabetes Association. Diabetes Care. 2016.39(Suppl 1). Performed By: #### 2 4323-8, , 2131-11 #### [facility] CLIA [id number] [address] [address] [place] Potassium [Moles/Vol] 4.5 mmol/L Normal 3.7-5.1 [facility] Comment on above: Order Comment: Speci men Type: BLOOD SPECIMEN [facility] Address: [address] Performed By: #### 2 4322-8, , 2131-11 #### [facility] CLIA [id number] [address] [address] [place] Protein [Mass/Vol] 6.7 g/dL Normal 6.3-8.0 [facility] Comment on above: Order Comment: Speci men Type: BLOOD SPECIMEN [facility] Address: [address] Performed By: #### 2 432-8, , 2131-11 #### [facility] CLIA [id number] [address] [place] [address] [place] Sodium [Moles/Vol] 142 mmol/L Normal 136-144 [facility] Comment on above: Order Comment: Speci men Type: BLOOD SPECIMEN [facility] Address: [address] Performed By: #### 2 4322-8, , 2131-11 #### [facility] CLIA [id number] [address] [place] [address] [place] Urea nitrogen [Mass/Vol] 12 mg/dL Normal 7-21 [facility] Comment on above: Order Comment: Speci men Type: BLOOD SPECIMEN [facility] Address: [address] [place] [address] Performed By: #### 2 4322-8, , 2131-11 #### [facility] CLIA [id number] [address] [address] [place] HbA1c (Bld)on 04-12-2022 Average glucose Estimated from glycated hemoglobin (Bld) [Mass/Vol] 105 mg/dL Normal [facility] Comment on above: Order Comment: Justina cazares Type: BLOOD SPECIMENOrdering Facility: [facility] Address: [address] [place] [address] Result Comment: eAG: (Estimated average glucose) is a calculated value from HgbA1c and is commercial representative of the average blood glucose level in the last 2-3 month period. Performed By: #### 5 5454-3 ####[facility] LABCLIA [id number] [place] [address] [place] HbA1c (Bld) [Mass fraction] 5.3 % Normal 4.3-5.6 [facility] Comment on above: Order Comment: Justina cazares Type: BLOOD SPECIMENOrdering Facility: [facility] Address: [address] [place] [address] Result Comment: Jagjit ican Diabetes Association guidelines indicate that patients with HgbA1c in the range 5.7-6.4% are at increased risk for development of diabetes, and intervention by lifestyle modification may be beneficial. HgbA1c greater or equal to 6.5% is considered diagnostic of diabetes. Performed By: #### 5 5454-3 ####[facility] LABCLIA [id number] [place] [address] [place] Magnesium SerPl-mCncon 04-12 Magnesium [Mass/Vol] 2.1 mg/dL Normal 1.7-2.3 [facility] Comment on above: Order Comment: Justina cazares Type: BLOOD SPECIMEN [facility] Address: [address] Performed By: #### 2 4323-8, 35524-8, 2132-9 #### [facility] CLIA [id number] [address] [place] [address] [place] Vit B12 SerPl-mCncon 023 Cobalamin (Vitamin B12) [Mass/Vol] 507 pg/mL Normal 232-1245 [facility] Comment on above: Order Comment: Justina cazares Type: BLOOD SPECIMENOrdering Facility: [facility] Address: [address] [place], [place] [address] [place] [address] Performed By: #### 2 4323-8, 78961-9, 2132-9 ####[facility] LABCLIA [id number] [id number] [place] [address] [place] Absolute lymphocyte counton 06-14-2021 Lymphocytes Auto (Unsp spec) [#/Vol] 0.26 10*3/uL 0.83-4.51 [facility] Work Phone: Basophil percentageon 2021 Basophil percentage 0 SEEN /hpf [facility] Work Phone: Basophils/100 WBC (Bld) 0.4 % 0-1 [facility] Work Phone: Chloride [Moles/Vol] 109 mmol/L 98-107 [facility] Work Phone: Eosinophils/100 WBC (Bld) 0.3 % 0-5 [facility] Work Phone: Glucose [Mass/Vol] 90 mg/dL 74-106 [facility] Work Phone: Neutrophils (Bld) [#/Vol] 6.7 10*3/uL 2.0-7.7 [facility] Work Phone: Neutrophils/100 WBC (Bld) 93.1 % 47-70 [facility] Work Phone: Potassium [Moles/Vol] 3.4 mmol/L 3.5-5.1 [facility] Work Phone: Comment on above: Moderate Hemolysis, Result may be falsely increased. Sodium [Moles/Vol] 144 mmol/L 136-145 [facility] Work Phone: WBC (Bld) [#/Vol] 7.2 10*3/uL 4.4-11.0 [facility] Work Phone: Bilirubin Test strip Ql (U)o n 06-14-2021 Bilirubin Ql (U) Negative Negative [facility] Work Phone: Blood erythrocytes count (nu mber/volume)on 06-14-2021 RBC (Bld) [#/Vol] 4.76 10*6/uL 4.2-5.4 [facility] Work Phone: Blood hemoglobin measurement (mass/volume)on 06-14-2021 Hemoglobin (Bld) [Mass/Vol] 15.0 g/dL 12.0-15.0 [facility] Work Phone: Blood lymphocytes/100 leukoc yteson 06-14-2021 Lymphocytes/100 WBC (Bld) 3.6 % 19-41 [facility] Work Phone: Blood manual differential co mment interpretation (narrative result)on 06-14-2021 Manual differential comment Ramone (Bld) [Interp] SCANNED [facility] Work Phone: Blood monocytes/100 leukocyt eson 06-14-2021 Monocytes/100 WBC (Bld) 0.4 % 0-10 [facility] Work Phone: Blood platelet mean volumeon 06-14-2021 Platelet mean volume (Bld) [Entitic vol] 9.7 fL 6.2-12.0 [facility] Work Phone: Determination of erythrocyte mean corpuscular volume (MCV)on 06-14-2021 MCV (RBC) [Entitic vol] 93.1 fL 81-99 [facility] Work Phone: Hematocrit Auto (Bld) [Volum e fraction]on 06-14-2021 Hematocrit (Bld) [Volume fraction] 44.3 % 37-47 [facility] Work Phone: Ketones Test strip Ql (U)on 06-14-2021 Ketones Ql (U) Negative Negative [facility] Work Phone: Laboratory - Chemistry and C hemistry - challengeon 06-14-2021 CO2 [Moles/Vol] 28.0 mmol/L 21.0-32.0 [facility] Work Phone: Urea nitrogen/Creatinine [Mass ratio] 16.4 mg/mg 10- [facility] Work Phone: Laboratory - Hematology and Cell countson 06-14-2021 Erythrocyte distribution width (RBC) [Entitic vol] 43.6 fL 35.1-43.9 [facility] Work Phone: Erythrocyte distribution width (RBC) [Ratio] 12.9 % 11.6-14.6 [facility] Work Phone: Immature granulocytes/100 WBC (Bld) 2.200 % 0.0-0.9 [facility] Work Phone: Comment on above: IG% - Immature Granu locytes (promyelocytes, myelocytes and metamyelocytes) > 1% indicates that a LEFT SHIFT is Present. MCH (RBC) [Entitic mass] 31.5 pg 27.0-32.0 [facility] Work Phone: Nucleated RBC/100 WBC (Bld) [Ratio] 0 % 0-5 [facility] Work Phone: MCHC Auto (RBC) [Mass/Vol]on 06-14-2021 MCHC (RBC) [Mass/Vol] 33.9 g/dL 32-36 [facility] Work Phone: Mucus LM Ql (Urine sed)on Mucus Ql (Urine sed) 0 SEEN /hpf [facility] Work Phone: Nitrite Test strip Ql (U)on 06-14-2021 Nitrite Ql (U) Negative Negative [facility] Work Phone: No Panel Informationon 06-14 Troponin I High Sensitivity 8 pg/mL 3.0-54.0 [facility] Work Phone: Comment on above: Please Note: New [place] t Units and Gender Specific Reference Ranges. For more information see Policy Stat Procedure [place] High Sensitivity Troponin (TNIH) and attachments. D-Dimer Quantitative (PE/DVT) 2.79 FEU/ug/m 0.27-0.49 [facility] Work Phone: Comment on above: D-Dimer ELEVATED (>0 .49): Additional studies and clinicalassessments are indicated to conclude diagnosis of:Deep Vein Thrombosis (DVT) or Pulmonary Embolism (PE)CRITICAL VALUE VERIFIED. CALLED TO FLETCHER RAPHAEL06/14/21 Chioma Saucedo.RESULTS READ BACK BY SAME . Estimated Creatinine Clearance Calc 32.77 ml/min [facility] Work Phone: Estimated GFR (MDRD) Amer 99 mL/min >60 [facility] Work Phone: Comment on above: GFR Calc Estimated GFR (MDRD) Non-Af Amer 81 mL/min >60 [facility] Work Phone: Comment on above: Non- GFR Calc Thyroid Stimulating Hormone (TSH) 1.57 uIU/mL 0.358-3.74 [facility] Work Phone: Platelets bldon 06-14-2021 Platelets (Bld) [#/Vol] 194 10*3/uL 150-450 [facility] Work Phone: Protein Test strip Ql (U)on 06-14-2021 Protein Ql (U) Negative Negative [facility] Work Phone: Serum or plasma calcium lisa urement (mass/volume)on 06-14-2021 Calcium [Mass/Vol] 9.4 mg/dL 8.5-10.1 [facility] Work Phone: Serum or plasma creatinine m easurement (mass/volume)on 06-14-2021 Creatinine [Mass/Vol] 0.73 mg/dL 0.55-1.02 [facility] Work Phone: Comment on above: The validity of the calculated GFR & GFRAA in patients over 70 years has not been determined. Clinical correlation is essential. Serum or plasma urea nitroge n measurement (mass/volume)on 06-14-2021 Urea nitrogen [Mass/Vol] 12 mg/dL 7-18 [facility] Work Phone: Squamous epithelial cells de tection in urine sediment by light microscopyon 06-14-2021 Epithelial cells.squamous LM Ql (Urine sed) 0-5 SEEN /hpf [facility] Work Phone: Thin prep Papanicolaou smear with manual screeningon 06-14-2021 Thin prep Papanicolaou smear with manual screening 7 5-15 [facility] Work Phone: Urine blood detectionon 05-27 RBC Ql (U) Negative Negative [facility] Work Phone: RBC Ql (U) 0 SEEN /hpf [facility] Work Phone: Urine clarityon 06-14-2021 Clarity (U) Clear Clear [facility] Work Phone: Urine color determinationon 06-14-2021 Color (U) Yellow Yellow [facility] Work Phone: Urine glucose detectionon Glucose Ql (U) Normal mg/dl Normal [facility] Work Phone: Urine leukocyte esterase det ection by dipstickon 06-14-2021 Leukocyte esterase Test strip Ql (U) Negative Negative [facility] Work Phone: Urine pHon 06-14-2021 pH (U) 8.0 [pH] [facility] Work Phone: Urine sediment bacteria coun t by microscopy (number/high power field)on 06-14-2021 Bacteria LM.HPF (Urine sed) [#/Area] 0 /[HPF] None Seen [facility] Work Phone: Urine specific gravity measu rementon 06-14-2021 Specific gravity (U) [Rel density] 1.010 [facility] Work Phone: Urobilinogen Auto test strip Ql (U)on 06-14-2021 Urobilinogen Ql (U) Normal mg/dl Normal [facility] Work Phone: Basophil percentageon 2021 Cholesterol [Mass/Vol] 200 mg/dL <200 [facility] Work Phone: Comment on above: <200 mg/dL Desirable 200-240 mg/dL Borderline >240 mg/dL High Risk Triglyceride [Mass/Vol] 102 mg/dL [facility] Work Phone: Comment on above: The drugs N-Acetylcy steine and Metamizole may falsely depress this assay.Serum Triglycerides Reference Interval Normal <150 mg/dL Borderline high 150 - 199 mg/dL High 200 - 499 mg/dL Very High > or = 500 mg/dL Serum or plasma cholesterol in HDL measurement (mass/volume)on 04-09-2021 Cholesterol in HDL [Mass/Vol] 60 mg/dL [facility] Work Phone: Comment on above: The drugs N-Acetylcy steine and Metamizole may falsely depress this assay. Reference Range HDL <40 mg/dL Low HDL Cholesterol HDL >or= 60 mg/dL High HDL Cholesterol Serum or plasma cholesterol in VLDL measurement (mass/volume)on 04-09-2021 Cholesterol in VLDL [Mass/Vol] 20 mg/dL 5-40 [facility] Work Phone: Serum or plasma low density lipoprotein (LDL) cholesterol measurement (mass/volume)on 04-09-2021 Cholesterol in LDL [Mass/Vol] 120 mg/dL 0-130 [facility] Work Phone: CNNURSEon 06-12-2020 CNNURSE Nurse Visit (AMRITA) SUGAR COONEY ([id number]) 1940 F Date Time Provider Department 06/12/20 BRIDGETTE CHOWDHURY JR During your visit today, we recorded the following information about you: Allergies As of Date: 06/12/2020 (No Known Allergies) Date Reviewed: 03/17/2020 Reviewed by: Virgilio Rojas - Fully Assessed Order(s):authorGEN SARS-COV-2 VACCINE 2D DOSE APPT [[id number]] Order #: [id number] Prescriptions as of 06/12/2020 Sig: VALACYCLOVIR 500 MG TABLET Take 1 tablet by mouth twice * CALTRATE 600 + D ORAL Take by mouth. VITAMIN D2 ORAL Take by mouth. * MULTIVITAMIN TABLET Take one(1) tablet daily. 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 Encounter for screening for diabetes mellitus [*12/06/2017 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] 12/24/2017 Encounter for lipid screening for cardiovascula*09/20/19 20 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] 03/17/2020 Encounter Status:[facility] Office Visit: UC: RADHAarmaan - Alcoholism counseling (procedure) no Invalid Interpretation Code [facility] Work Phone: Bilirubin Ql (U) Negative Invalid Interpretation Code [facility] Work Phone: blood in urine (hemoglobin) by dipstick non-hemolyzed moderate Invalid Interpretation Code [facility] Work Phone: Documentation of current medications (procedure) Done Invalid Interpretation Code [facility] Work Phone: Fall risk assessment No Invalid Interpretation Code [facility] Work Phone: specific gravity, urine 1.005 Invalid Interpretation Code [facility] Work Phone: Tobacco smoking status NHIS Never Invalid Interpretation Code [facility] Work Phone: Tobacco use CPHS Never smoker Invalid Interpretation Code [facility] Work Phone: Urine, appearance clear Invalid Interpretation Code [facility] Work Phone: Urine, color lt. yellow Invalid Interpretation Code [facility] Work Phone: Urine, glucose presence Negative Invalid Interpretation Code [facility] Work Phone: Urine, ketones presence Negative Invalid Interpretation Code [facility] Work Phone: Urine, leukocyte esterase presence 2+ Invalid Interpretation Code [facility] Work Phone: Urine, nitrite presence Negative Invalid Interpretation Code [facility] Work Phone: Urine, pH 5.0 [pH] Invalid Interpretation Code [facility] Work Phone: Urine, protein Negative Invalid Interpretation Code [facility] Work Phone: Urine, urobilinogen presence Negative Invalid Interpretation Code [facility] Work Phone: Office Visit: Dyspneaon 05-1 Alcoholism counseling (procedure) no Invalid Interpretation Code [facility] Work Phone: Documentation of current medications (procedure) Done Invalid Interpretation Code [facility] Work Phone: Fall risk assessment No Invalid Interpretation Code [facility] Work Phone: Tobacco smoking status NVIS Never Invalid Interpretation Code [facility] Work Phone: Tobacco use [facility] Never smoker Invalid Interpretation Code [facility] Work Phone: Office Visit: UC: UTIon 04-0 blood in urine (hemoglobin) by dipstick 2+ Invalid Interpretation Code [facility] Work Phone: specific gravity, urine 1.015 Invalid Interpretation Code [facility] Work Phone: Urine, appearance hazy Invalid Interpretation Code [facility] Work Phone: Urine, bilirubin presence Negative Invalid Interpretation Code [facility] Work Phone: Urine, color yellow Invalid Interpretation Code [facility] Work Phone: Urine, glucose presence Negative Invalid Interpretation Code [facility] Work Phone: Urine, ketones presence Negative Invalid Interpretation Code [facility] Work Phone: Urine, leukocyte esterase presence 2+ Invalid Interpretation Code [facility] Work Phone: Urine, nitrite presence Negative Invalid Interpretation Code [facility] Work Phone: Urine, pH 5.0 [pH] Invalid Interpretation Code [facility] Work Phone: Urine, protein Negative Invalid Interpretation Code [facility] Work Phone: Urine, urobilinogen presence Negative Invalid Interpretation Code [facility] Work Phone: CALCIFEDIOL ([id number])Ordered B y: Melter Caster on 04-14-2016 25-hydroxyvitamin D [Mass/Vol] 44.0 ng/mL Normal 30.0-100.0 [facility]; [facility] Work Phone: CBC, PLATELETS & AUT DIFF ([phone])Ordered By: Melter Caster on 04-14-2016 Basophils (Bld) [#/Vol] 0.0 10*3/uL Normal 0.0-0.2 [facility]; [facility] Work Phone: Basophils/100 WBC (Bld) 0 % Normal [facility]; [facility] Work Phone: Eosinophils (Bld) [#/Vol] 0.1 10*3/uL Normal 0.0-0.4 [facility]; [facility] Work Phone: Eosinophils/100 WBC (Bld) 2 % Normal [facility]; [facility] Work Phone: Erythrocyte distribution width (RBC) [Ratio] 14.8 % Normal 12.3-15.4 [facility]; [facility] Work Phone: Hematocrit (Bld) [Volume fraction] 39.4 % Normal 34.0-46.6 [facility]; [facility] Work Phone: Hemoglobin (Bld) [Mass/Vol] 13.4 g/dL Normal 11.1-15.9 [facility]; [facility] Work Phone: Immature granulocytes (Bld) [#/Vol] 0.0 10*3/uL Normal 0.0-0.1 [facility]; [facility] Work Phone: Immature granulocytes/100 WBC (Bld) 0 % Normal [facility]; [facility] Work Phone: Lymphocytes (Bld) [#/Vol] 1.6 10*3/uL Normal 0.7-3.1 [facility]; [facility] Work Phone: Lymphocytes/100 WBC (Bld) 33 % Normal [facility]; [facility] Work Phone: MCH (RBC) [Entitic mass] 31.3 pg Normal 26.6-33.0 [facility]; [facility] Work Phone: MCHC (RBC) [Mass/Vol] 34.0 g/dL Normal 31.5-35.7 [facility]; [facility] Work Phone: MCV (RBC) [Entitic vol] 92 fL Normal 79-97 [facility]; [facility] Work Phone: Monocytes (Bld) [#/Vol] 0.3 10*3/uL Normal 0.1-0.9 [facility]; [facility] Work Phone: Monocytes/100 WBC (Bld) 7 % Normal [facility]; [facility] Work Phone: Neutrophils (Bld) [#/Vol] 2.8 10*3/uL Normal 1.4-7.0 [facility]; [facility] Work Phone: Neutrophils/100 WBC (Bld) 58 % Normal [facility]; [facility] Work Phone: Platelets (Bld) [#/Vol] 222 10*3/uL Normal 150-379 [facility]; [facility] Work Phone: RBC (Bld) [#/Vol] 4.28 10*6/uL Normal 3.77-5.28 [facility]; [facility] Work Phone: WBC (Bld) [#/Vol] 4.8 10*3/uL Normal 3.4-10.8 [facility]; [facility] Work Phone: LIPID PANEL ([phone])Ordered B y: Melter Caster on 04-14-2016 Cholesterol [Mass/Vol] 224 mg/dL Abnormal 100-199 [facility]; [facility] Work Phone: Cholesterol in HDL [Mass/Vol] 76 mg/dL Normal [facility]; [facility] Work Phone: Cholesterol in LDL [Mass/Vol] 125 mg/dL Abnormal 0-99 [facility]; [facility] Work Phone: Cholesterol in LDL/Cholesterol in HDL [Mass ratio] 1.6 {ratio_units} Normal 0.0-3.2 [facility]; [facility] Work Phone: Cholesterol in VLDL [Mass/Vol] 23 mg/dL Normal 5-40 [facility]; [facility] Work Phone: Triglyceride [Mass/Vol] 114 mg/dL Normal 0-149 [facility]; [facility] Work Phone: METABOLIC PANEL, COMPREHENSI VE ([phone])Ordered By: Melter Caster on 04-14-2016 Albumin [Mass/Vol] 4.1 g/dL Normal 3.5-4.8 [facility]; [facility] Work Phone: Albumin/Globulin [Mass ratio] 1.9 {ratio} Normal 1.1-2.5 [facility]; [facility] Work Phone: ALP [Catalytic activity/Vol] 65 U/L Normal 39-117 [facility]; [facility] Work Phone: ALT [Catalytic activity/Vol] 17 U/L Normal 0-32 [facility]; [facility] Work Phone: AST [Catalytic activity/Vol] 19 U/L Normal 0-40 [facility]; [facility] Work Phone: Bilirubin [Mass/Vol] 0.8 mg/dL Normal 0.0-1.2 [facility]; [facility] Work Phone: Calcium [Mass/Vol] 9.3 mg/dL Normal 8.7-10.3 [facility]; [facility] Work Phone: Chloride [Moles/Vol] 101 mmol/L Normal 96-106 [facility]; [facility] Work Phone: CO2 [Moles/Vol] 26 mmol/L Normal 18-29 [facility]; [facility] Work Phone: Creatinine [Mass/Vol] 0.58 mg/dL Normal 0.57-1.00 [facility]; [facility] Work Phone: GFR/1.73 sq M.predicted among blacks CKD-EPI (S/P/Bld) [Vol rate/Area] 105 mL/min/1.73 Normal [facility]; [facility] Work Phone: GFR/1.73 sq M.predicted among non-blacks CKD-EPI (S/P/Bld) [Vol rate/Area] 91 mL/min/1.73 Normal [facility]; [facility] Work Phone: Globulin (S) [Mass/Vol] 2.2 g/dL Normal 1.5-4.5 [facility]; [facility] Work Phone: Glucose [Mass/Vol] 91 mg/dL Normal 65-99 [facility]; [facility] Work Phone: Potassium [Moles/Vol] 4.4 mmol/L Normal 3.5-5.2 [facility]; [facility] Work Phone: Protein [Mass/Vol] 6.3 g/dL Normal 6.0-8.5 [facility]; [facility] Work Phone: Sodium [Moles/Vol] 143 mmol/L Normal 134-144 [facility]; [facility] Work Phone: Urea nitrogen [Mass/Vol] 13 mg/dL Normal 8-27 [facility]; [facility] Work Phone: Urea nitrogen/Creatinine [Mass ratio] 22 mg/mg Normal 11-26 [facility]; [facility] Work Phone: MICROALBUMINOrdered By: Syst em Electron 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 on 04-14-2016 Albumin DL <= 20 mg/L (U) [Mass/Vol] mg/dL Normal [facility]; [facility] Work Phone: Albumin/Creatinine (U) [Mass ratio] <10.3 Normal 0.0-30.0 [facility]; [facility] Work Phone: Creatinine (U) [Mass/Vol] 29.2 mg/dL Normal [facility]; [facility] Work Phone: TSH (THYROID STIMULATING HOR YAJAIRA) ([phone])Ordered By: Melter Caster on 04-14-2016 TSH Qn 1.870 {uIU/mL} Normal 0.450-4.500 [facility]; [facility] Work Phone: Blood Glucose , Office [phone])Ordered By: Gail Villanueva on 04-13-2016 Glucose Glucometer (BldC) [Moles/Vol] 94 1 Normal [facility]; [facility] Work Phone: HgA1C , Office ([phone])Ordere d By: Gail Villanueva on 04-13-2016 HbA1c (Bld) [Mass fraction] 5.1 % Normal 4.6 - 7.1 [facility]; [facility] Work Phone: MICROALBUMINOrdered By: Syst em Electron 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 on 12-22-2015 Albumin DL <= 20 mg/L (U) [Mass/Vol] mg/dL Normal [facility]; [facility] Work Phone: Albumin/Creatinine (U) [Mass ratio] <17.6 Normal 0.0-30.0 [facility]; [facility] Work Phone: Creatinine (U) [Mass/Vol] 17.0 mg/dL Normal [facility]; [facility] Work Phone: CALCIFEDIOL ([phone])Ordered B y: Melter Caster on 12-18-2015 25-hydroxyvitamin D [Mass/Vol] 75.6 ng/mL Normal 30.0-100.0 [facility]; [facility] Work Phone: CBC, PLATELETS & AUT DIFF ([phone])Ordered By: Melter Caster on 12-18-2015 Basophils (Bld) [#/Vol] 0.0 10*3/uL Normal 0.0-0.2 [facility]; [facility] Work Phone: Basophils/100 WBC (Bld) 0 % Normal [facility]; [facility] Work Phone: Eosinophils (Bld) [#/Vol] 0.1 10*3/uL Normal 0.0-0.4 [facility]; [facility] Work Phone: Eosinophils/100 WBC (Bld) 2 % Normal [facility]; [facility] Work Phone: Erythrocyte distribution width (RBC) [Ratio] 13.8 % Normal 12.3-15.4 [facility]; [facility] Work Phone: Hematocrit (Bld) [Volume fraction] 41.3 % Normal 34.0-46.6 [facility]; [facility] Work Phone: Hemoglobin (Bld) [Mass/Vol] 14.0 g/dL Normal 11.1-15.9 [facility]; [facility] Work Phone: Immature granulocytes (Bld) [#/Vol] 0.0 10*3/uL Normal 0.0-0.1 [facility]; [facility] Work Phone: Immature granulocytes/100 WBC (Bld) 0 % Normal [facility]; [facility] Work Phone: Lymphocytes (Bld) [#/Vol] 2.3 10*3/uL Normal 0.7-3.1 [facility]; [facility] Work Phone: Lymphocytes/100 WBC (Bld) 37 % Normal [facility]; [facility] Work Phone: MCH (RBC) [Entitic mass] 30.6 pg Normal 26.6-33.0 [facility]; [facility] Work Phone: MCHC (RBC) [Mass/Vol] 33.9 g/dL Normal 31.5-35.7 [facility]; [facility] Work Phone: MCV (RBC) [Entitic vol] 90 fL Normal 79-97 [facility]; [facility] Work Phone: Monocytes (Bld) [#/Vol] 0.4 10*3/uL Normal 0.1-0.9 [facility]; [facility] Work Phone: Monocytes/100 WBC (Bld) 6 % Normal [facility]; [facility] Work Phone: Neutrophils (Bld) [#/Vol] 3.4 10*3/uL Normal 1.4-7.0 [facility]; [facility] Work Phone: Neutrophils/100 WBC (Bld) 55 % Normal [facility]; [facility] Work Phone: Platelets (Bld) [#/Vol] 223 10*3/uL Normal 150-379 [facility]; [facility] Work Phone: RBC (Bld) [#/Vol] 4.57 10*6/uL Normal 3.77-5.28 [facility] ehensive [facility]; [facility] Work Phone: WBC (Bld) [#/Vol] 6.2 10*3/uL Normal 3.4-10.8 [facility]; [facility] Work Phone: LIPID PANEL ([id number])Ordered B y: Melter Caster on 12-18-2015 Cholesterol [Mass/Vol] 237 mg/dL Abnormal 100-199 [facility]; [facility] Work Phone: Cholesterol in HDL [Mass/Vol] 76 mg/dL Normal [facility]; [facility] Work Phone: Cholesterol in LDL [Mass/Vol] 140 mg/dL Abnormal 0-99 [facility]; [facility] Work Phone: Cholesterol in LDL/Cholesterol in HDL [Mass ratio] 1.8 {ratio_units} Normal 0.0-3.2 [facility]; [facility] Work Phone: Cholesterol in VLDL [Mass/Vol] 21 mg/dL Normal 5-40 [facility]; [facility] Work Phone: Triglyceride [Mass/Vol] 105 mg/dL Normal 0-149 [facility]; [facility] Work Phone: METABOLIC PANEL, COMPREHENSI VE ([phone])Ordered By: Melter Caster on 12-18-2015 Albumin [Mass/Vol] 4.1 g/dL Normal 3.5-4.8 [facility]; [facility] Work Phone: Albumin/Globulin [Mass ratio] 1.7 {ratio} Normal 1.1-2.5 [facility]; [facility] Internal Medicine Work Phone: ALP [Catalytic activity/Vol] 55 U/L Normal 39-117 [facility] Internal Medicine; [facility] Internal Medicine Work Phone: ALT [Catalytic activity/Vol] 14 U/L Normal 0-32 [facility] Internal Medicine; [facility] Internal Medicine Work Phone: AST [Catalytic activity/Vol] 16 U/L Normal 0-40 [facility] Internal Medicine; [facility] Internal Medicine Work Phone: Bilirubin [Mass/Vol] 0.7 mg/dL Normal 0.0-1.2 [facility] Internal Medicine; [facility] Internal Medicine Work Phone: Calcium [Mass/Vol] 9.5 mg/dL Normal 8.7-10.3 [facility] Internal Medicine; [facility] Internal Medicine Work Phone: Chloride [Moles/Vol] 102 mmol/L Normal 97-108 [facility] Internal Medicine; [facility] Internal Medicine Work Phone: CO2 [Moles/Vol] 26 mmol/L Normal 18-[address] [facility]; [facility] Internal Medicine Work Phone: Creatinine [Mass/Vol] 0.60 mg/dL Normal 0.57-1.00 [facility] prehensive Internal Medicine; [facility] Work Phone: GFR/1.73 sq M.predicted among blacks CKD-EPI (S/P/Bld) [Vol rate/Area] 105 mL/min/1.73 Normal [facility]; [facility] Work Phone: GFR/1.73 sq M.predicted among non-blacks CKD-EPI (S/P/Bld) [Vol rate/Area] 91 mL/min/1.73 Normal [facility] Internal [facility]; [facility] Work Phone: Globulin (S) [Mass/Vol] 2.4 g/dL Normal 1.5-4.5 [facility] Internal [facility]; [facility] Work Phone: Glucose [Mass/Vol] 94 mg/dL Normal 65-99 [facility] Internal Medicine; [facility] Work Phone: Potassium [Moles/Vol] 4.8 mmol/L Normal 3.5-5.2 [facility] Internal Medicine; [facility] Work Phone: Protein [Mass/Vol] 6.5 g/dL Normal 6.0-8.5 [facility] Internal [facility]; [facility] Work Phone: Sodium [Moles/Vol] 144 mmol/L Normal 134-144 [facility]; [facility] Work Phone: Urea nitrogen [Mass/Vol] 12 mg/dL Normal 8-27 [facility] Internal [facility]; [facility] Work Phone: Urea nitrogen/Creatinine [Mass ratio] 20 mg/mg Normal 11-26 [facility]; [facility] Work Phone: TSH (THYROID STIMULATING HOR YAJAIRA) ([id number])Ordered By: Melter Caster on 12-18-2015 TSH Qn 1.790 {uIU/mL} Normal 0.450-4.500 [facility] Internal Medicine; [facility] Work Phone: URINE CALCIUM SAMANTHA TIMED 24 Hour ([id number])Ordered By: Melter Caster on 12-18-2015 Calcium (24H U) [Mass/Time] 269.5 {mg/24_hr} Normal 100.0-300.0 [facility]; [facility] Work Phone: Calcium (24H U) [Mass/Vol] 11.0 mg/dL Normal [facility]; [facility] Work Phone: VITAMIN B12 AND FOLATES ([phone])Ordered By: Melter Caster on 12-18-2015 Cobalamin (Vitamin B12) [Mass/Vol] 622 pg/mL Normal 211-946 [facility]; [facility] Work Phone: Folate [Mass/Vol] ng/mL Normal Compreh ensive Internal Medicine; [facility] Work Phone: Blood Glucose , Office ([phone])Ordered By: Tabitha Bianchi on 12-16-2015 Glucose Glucometer (BldC) [Moles/Vol] 90 1 Normal [facility]; [facility] Work Phone: HgA1C , Office ([id number])Ordere d By: Tabitha Bianchi on 12-16-2015 HbA1c (Bld) [Mass fraction] 5.3 % Normal 4.6 - 7.1 [facility]; [facility] Work Phone: CBC W/AUTO DIFF WBC ([id number])O rdered By: Melter Caster on 12-09-2015 Basophils (Bld) [#/Vol] 0.0 10*3/uL Normal 0.0-0.2 [facility]; [facility] Work Phone: Basophils/100 WBC (Bld) 1 % Normal [facility]; [facility] Work Phone: Eosinophils (Bld) [#/Vol] 0.1 10*3/uL Normal 0.0-0.4 [facility]; [facility] Work Phone: Eosinophils/100 WBC (Bld) 2 % Normal [facility]; [facility] Work Phone: Erythrocyte distribution width (RBC) [Ratio] 13.9 % Normal 12.3-15.4 [facility]; [facility] Work Phone: Hematocrit (Bld) [Volume fraction] 41.1 % Normal 34.0-46.6 [facility]; [facility] Work Phone: Hemoglobin (Bld) [Mass/Vol] 13.9 g/dL Normal 11.1-15.9 [facility]; [facility] Work Phone: Immature granulocytes (Bld) [#/Vol] 0.0 10*3/uL Normal 0.0-0.1 [facility]; [facility] Work Phone: Immature granulocytes/100 WBC (Bld) 0 % Normal [facility]; [facility] Work Phone: Lymphocytes (Bld) [#/Vol] 2.1 10*3/uL Normal 0.7-3.1 [facility]; [facility] Work Phone: Lymphocytes/100 WBC (Bld) 42 % Normal [facility]; [facility] Work Phone: MCH (RBC) [Entitic mass] 31.0 pg Normal 26.6-33.0 [facility]; [facility] Work Phone: MCHC (RBC) [Mass/Vol] 33.8 g/dL Normal 31.5-35.7 [facility] prehensive Internal Medicine; [facility] Work Phone: MCV (RBC) [Entitic vol] 92 fL Normal 79-97 [facility]; [facility] Work Phone: Monocytes (Bld) [#/Vol] 0.3 10*3/uL Normal 0.1-0.9 [facility]; [facility] Work Phone: Monocytes/100 WBC (Bld) 5 % Normal [facility]; [facility] Work Phone: Neutrophils (Bld) [#/Vol] 2.6 10*3/uL Normal 1.4-7.0 [facility]; [facility] Work Phone: Neutrophils/100 WBC (Bld) 50 % Normal [facility]; [facility] Work Phone: Platelets (Bld) [#/Vol] 219 10*3/uL Normal 150-379 [facility]; [facility] Work Phone: RBC (Bld) [#/Vol] 4.48 10*6/uL Normal 3.77-5.28 [facility] Internal Medicine; [facility] Work Phone: WBC (Bld) [#/Vol] 5.1 10*3/uL Normal 3.4-10.8 [facility]; [facility] Work Phone: LIPID PANEL ([id number])Ordered B y: Melter Caster on 12-09-2015 Cholesterol [Mass/Vol] 223 mg/dL Abnormal 100-199 [facility]; [facility] Work Phone: Cholesterol in HDL [Mass/Vol] 71 mg/dL Normal [facility]; [facility] Work Phone: Cholesterol in LDL [Mass/Vol] 132 mg/dL Abnormal 0-99 [facility]; [facility] Work Phone: Cholesterol in LDL/Cholesterol in HDL [Mass ratio] 1.9 {ratio_units} Normal 0.0-3.2 [facility]; [facility] Work Phone: Cholesterol in VLDL [Mass/Vol] 20 mg/dL Normal 5-40 [facility]; [facility] Work Phone: Triglyceride [Mass/Vol] 100 mg/dL Normal 0-149 [facility]; [facility] Work Phone: METABOLIC PANEL, COMPREHENSI VE ([phone])Ordered By: Melter Caster on 12-09-2015 Albumin [Mass/Vol] 3.9 g/dL Normal 3.5-4.8 [facility]; [facility] Work Phone: Albumin/Globulin [Mass ratio] 2.0 {ratio} Normal 1.1-2.5 [facility]; [facility] Work Phone: ALP [Catalytic activity/Vol] 48 U/L Normal 39-117 [facility]; [facility] Work Phone: ALT [Catalytic activity/Vol] 12 U/L Normal 0-32 [facility]; [facility] Work Phone: AST [Catalytic activity/Vol] 14 U/L Normal 0-40 [facility]; [facility] Work Phone: Bilirubin [Mass/Vol] 0.9 mg/dL Normal 0.0-1.2 [facility] Internal Medicine; [facility] Internal Medicine Work Phone: Calcium [Mass/Vol] 9.3 mg/dL Normal 8.7-10.3 [facility] Internal Medicine; [facility] Internal Medicine Work Phone: Chloride [Moles/Vol] 103 mmol/L Normal 97-108 [facility] Internal Medicine; [facility] Internal Medicine Work Phone: CO2 [Moles/Vol] 24 mmol/L Normal 18-29 [facility] Internal Medicine; [facility] Internal Medicine Work Phone: Creatinine [Mass/Vol] 0.60 mg/dL Normal 0.57-1.00 [facility] Internal Medicine; [facility] Internal Medicine Work Phone: GFR/1.73 sq M.predicted among blacks CKD-EPI (S/P/Bld) [Vol rate/Area] 105 mL/min/1.73 Normal [facility] Internal [facility]; [facility] Work Phone: GFR/1.73 sq M.predicted among non-blacks CKD-EPI (S/P/Bld) [Vol rate/Area] 91 mL/min/1.73 Normal [facility] Internal [facility]; [facility] Work Phone: Globulin (S) [Mass/Vol] 2.0 g/dL Normal 1.5-4.5 [facility] Internal [facility]; [facility] Work Phone: Glucose [Mass/Vol] 98 mg/dL Normal 65-99 [facility] Internal Medicine; [facility] Internal Medicine Work Phone: Potassium [Moles/Vol] 4.2 mmol/L Normal 3.5-5.2 [facility] Internal [facility]; [facility] Internal Medicine Work Phone: Protein [Mass/Vol] 5.9 g/dL Abnormal 6.0-8.5 [facility]; [facility] Work Phone: Sodium [Moles/Vol] 143 mmol/L Normal 134-144 Compre hensive Internal Medicine; [facility] Work Phone: Urea nitrogen [Mass/Vol] 16 mg/dL Normal 8-27 [facility]; [facility] Work Phone: Urea nitrogen/Creatinine [Mass ratio] 27 mg/mg Abnormal 11-26 [facility]; [facility] Work Phone: URINALYSIS, W/ MICRO ([id number]) Ordered By: Melter Caster on 12-09-2015 Appearance (U) Clear Normal [facility]; [facility] Work Phone: Bilirubin Ql (U) Negative Normal Comprehe nsive Internal Medicine; [facility] Work Phone: Color (U) Yellow Normal [facility]; [facility] Work Phone: Glucose Ql (U) Negative Normal [facility]; [facility] Work Phone: Hemoglobin Ql (U) Negative Normal Compre[facility] ensive [facility]; [facility] Work Phone: Ketones Ql (U) Negative Normal [facility]; [facility] Work Phone: Leukocyte esterase Test strip Ql (U) 1+ Abnormal [facility]; [facility] Work Phone: Microscopic observation LM Nom (Urine sed) See below: Normal [facility]; [facility] Work Phone: Nitrite Ql (U) Negative Normal [facility]; [facility] Work Phone: pH (U) 6.5 [pH] Normal 5.0-7.5 [facility]; [facility] Work Phone: Protein Ql (U) Negative Normal [facility]; [facility] Work Phone: Specific gravity (U) [Rel density] 1.018 1 Normal 1.005-1.030 [facility]; [facility] Work Phone: Urobilinogen (U) [Mass/Vol] 0.2 mg/dL Normal 0.2-1.0 [facility]; [facility] Work Phone: Vitamin D Hydroxy ([id number])Ord ered By: Melter Caster on 12-09-2015 25-hydroxyvitamin D [Mass/Vol] 75.7 ng/mL Normal 30.0-100.0 [facility]; [facility] Work Phone: CBC, Platelets & Auto Diff ( [id number])Ordered By: Melter Caster on 11-12-2015 Basophils (Bld) [#/Vol] 0.0 10*3/uL Normal 0.0-0.2 [facility]; [facility] Work Phone: Basophils/100 WBC (Bld) 1 % Normal [facility]; [facility] Work Phone: Eosinophils (Bld) [#/Vol] 0.1 10*3/uL Normal 0.0-0.4 [facility]; [facility] Work Phone: Eosinophils/100 WBC (Bld) 2 % Normal [facility]; [facility] Work Phone: Erythrocyte distribution width (RBC) [Ratio] 14.4 % Normal 12.3-15.4 [facility]; [facility] Work Phone: Hematocrit (Bld) [Volume fraction] 39.7 % Normal 34.0-46.6 [facility]; [facility] Work Phone: Hemoglobin (Bld) [Mass/Vol] 12.9 g/dL Normal 11.1-15.9 [facility]; [facility] Work Phone: Immature granulocytes (Bld) [#/Vol] 0.0 10*3/uL Normal 0.0-0.1 [facility]; [facility] Work Phone: Immature granulocytes/100 WBC (Bld) 0 % Normal [facility]; [facility] Work Phone: Lymphocytes (Bld) [#/Vol] 2.7 10*3/uL Normal 0.7-3.1 [facility]; [facility] Work Phone: Lymphocytes/100 WBC (Bld) 47 % Normal [facility]; [facility] Work Phone: MCH (RBC) [Entitic mass] 30.0 pg Normal 26.6-33.0 [facility]; [facility] Work Phone: MCHC (RBC) [Mass/Vol] 32.5 g/dL Normal 31.5-35.7 [facility] Internal [facility]; [facility] Work Phone: MCV (RBC) [Entitic vol] 92 fL Normal 79-97 [facility]; [facility] Work Phone: Monocytes (Bld) [#/Vol] 0.3 10*3/uL Normal 0.1-0.9 [facility]; [facility] Work Phone: Monocytes/100 WBC (Bld) 6 % Normal [facility]; [facility] Work Phone: Neutrophils (Bld) [#/Vol] 2.5 10*3/uL Normal 1.4-7.0 [facility]; [facility] Work Phone: Neutrophils/100 WBC (Bld) 44 % Normal [facility]; [facility] Work Phone: Platelets (Bld) [#/Vol] 226 10*3/uL Normal 150-379 [facility]; [facility] Work Phone: RBC (Bld) [#/Vol] 4.30 10*6/uL Normal 3.77-5.28 [facility] ehensive Internal Medicine; [facility] Work Phone: WBC (Bld) [#/Vol] 5.6 10*3/uL Normal 3.4-10.8 [facility]; [facility] Work Phone: Metabolic Panel, Comprehensi ve ([id number])Ordered By: Melter Caster on 11-12-2015 Albumin [Mass/Vol] 4.0 g/dL Normal 3.5-4.8 [facility]; [facility] Work Phone: Albumin/Globulin [Mass ratio] 2.0 {ratio} Normal 1.1-2.5 [facility]; [facility] Work Phone: ALP [Catalytic activity/Vol] 46 U/L Normal 39-117 [facility]; [facility] Work Phone: ALT [Catalytic activity/Vol] 12 U/L Normal 0-32 [facility]; [facility] Work Phone: AST [Catalytic activity/Vol] 16 U/L Normal 0-40 [facility]; [facility] Work Phone: Bilirubin [Mass/Vol] 0.8 mg/dL Normal 0.0-1.2 [facility]; [facility] Work Phone: Calcium [Mass/Vol] 9.0 mg/dL Normal 8.7-10.3 [facility]; [facility] Work Phone: Chloride [Moles/Vol] 102 mmol/L Normal 97-108 [facility]; [facility] Work Phone: CO2 [Moles/Vol] 24 mmol/L Normal 18-29 [facility]; [facility] Work Phone: Creatinine [Mass/Vol] 0.73 mg/dL Normal 0.57-1.00 [facility] Internal Medicine; [facility] Internal Medicine Work Phone: GFR/1.73 sq M.predicted among blacks CKD-EPI (S/P/Bld) [Vol rate/Area] 94 mL/min/1.73 Normal [facility]; [facility] Work Phone: GFR/1.73 sq M.predicted among non-blacks CKD-EPI (S/P/Bld) [Vol rate/Area] 82 mL/min/1.73 Normal [facility]; [facility] Work Phone: Globulin (S) [Mass/Vol] 2.0 g/dL Normal 1.5-4.5 [facility] Internal [facility]; [facility] Work Phone: Glucose [Mass/Vol] 88 mg/dL Normal 65-99 [facility] Internal [facility]; [facility] Work Phone: Potassium [Moles/Vol] 4.3 mmol/L Normal 3.5-5.2 [facility] prehensive Internal Medicine; [facility] Work Phone: Protein [Mass/Vol] 6.0 g/dL Normal 6.0-8.5 [facility] Work Phone: Sodium [Moles/Vol] 143 mmol/L Normal 134-144 [facility]; [facility] Work Phone: Urea nitrogen [Mass/Vol] 11 mg/dL Normal 8-27 [facility]; [facility] Work Phone: Urea nitrogen/Creatinine [Mass ratio] 15 mg/mg Normal 11-26 [facility]; [facility] Work Phone: PT (PROTHROMBIN TIME) ([id number] )Ordered By: Melter Caster on 11-12-2015 INR Coag (PPP) [Relative time] 1.0 {INR} Normal 0.8-1.2 [facility]; [facility] Work Phone: PT Coag (PPP) [Time] 10.5 s Normal 9.1-12.0 [facility]; [facility] Work Phone: Urinalysis, Office ([phone])on 11-12-2015 Bilirubin Ql (U) Negative Normal Comprehe nsive Internal Medicine; [facility] Work Phone: Glucose Test strip (U) [Mass/Vol] Negative Normal [facility]; [facility] Work Phone: Hemoglobin Ql (U) Negative Normal Compreh ensive [facility]; [facility] Work Phone: Ketones Ql (U) Negative Normal [facility]; [facility] Work Phone: Leukocyte esterase Test strip Ql (U) Negative Normal [facility]; [facility] Work Phone: Nitrite Ql (U) Negative Normal [facility]; [facility] Work Phone: pH (U) 6.5 [pH] Normal [facility]; [facility] Work Phone: Protein Ql (U) Negative Normal Com[facility]; [facility] Work Phone: Specific gravity (U) [Rel density] 1.005 1 Normal [facility]; [facility] Work Phone: Urobilinogen (24H U) [Mass/Time] Normal Normal [facility]; [facility] Work Phone: URINE CALCIUM SAMANTHA TIMED 24 Hour ([phone])Ordered By: Melter Caster on 06-13-2015 Calcium (24H U) [Mass/Time] 160.0 {mg/24_hr} Normal 100.0-300.0 [facility]; [facility] Work Phone: Calcium (24H U) [Mass/Vol] 5.0 mg/dL Normal [facility]; [facility] Work Phone: HgA1C , Office ([phone])Ordere d By: Catherine Magana on 06-11-2015 HbA1c (Bld) [Mass fraction] 5.3 % Normal 4.6 - 7.1 [facility]; [facility] Work Phone: POTASSIUM SERUM ([phone])Order ed By: Melter Caster on 06-03-2015 Potassium [Moles/Vol] 4.2 mmol/L Normal 3.5-5.1 [facility] prehensive Internal Medicine; [facility] Work Phone: LIPID PANEL ([id number])Ordered B y: Melter Caster on 06-02-2015 Cholesterol [Mass/Vol] 230 mg/dL Abnormal 100-199 [facility]; [facility] Work Phone: Cholesterol in HDL [Mass/Vol] 79 mg/dL Normal [facility]; [facility] Work Phone: Cholesterol in LDL [Mass/Vol] 132 mg/dL Abnormal 0-99 [facility]; [facility] Work Phone: Cholesterol in LDL/Cholesterol in HDL [Mass ratio] 1.7 {ratio_units} Normal 0.0-3.2 [facility]; [facility] Work Phone: Cholesterol in VLDL [Mass/Vol] 19 mg/dL Normal 5-40 [facility]; [facility] Work Phone: Triglyceride [Mass/Vol] 97 mg/dL Normal 0-149 [facility]; [facility] Work Phone: METABOLIC PANEL, COMPREHENSI VE ([id number])Ordered By: Melter Caster on 06-02-2015 Albumin [Mass/Vol] 4.2 g/dL Normal 3.5-4.8 [facility]; [facility] Work Phone: Albumin/Globulin [Mass ratio] 1.8 {ratio} Normal 1.1-2.5 [facility]; [facility] Work Phone: ALP [Catalytic activity/Vol] 53 U/L Normal 39-117 [facility]; [facility] Work Phone: ALT [Catalytic activity/Vol] 14 U/L Normal 0-32 [facility]; [facility] Work Phone: AST [Catalytic activity/Vol] 15 U/L Normal 0-40 [facility]; [facility] Work Phone: Bilirubin [Mass/Vol] 0.7 mg/dL Normal 0.0-1.2 [facility]; [facility] Work Phone: Calcium [Mass/Vol] 9.3 mg/dL Normal 8.7-10.3 [facility]; [facility] Work Phone: Chloride [Moles/Vol] 104 mmol/L Normal 97-108 [facility]; [facility] Work Phone: CO2 [Moles/Vol] 25 mmol/L Normal 18-29 [facility]; [facility] Work Phone: Creatinine [Mass/Vol] 0.58 mg/dL Normal 0.57-1.00 [facility]; [facility] Work Phone: GFR/1.73 sq M.predicted among blacks CKD-EPI (S/P/Bld) [Vol rate/Area] 106 mL/min/1.73 Normal [facility]; [facility] Work Phone: GFR/1.73 sq M.predicted among non-blacks CKD-EPI (S/P/Bld) [Vol rate/Area] 92 mL/min/1.73 Normal [facility]; [facility] Work Phone: Globulin (S) [Mass/Vol] 2.4 g/dL Normal 1.5-4.5 [facility]; [facility] Work Phone: Glucose [Mass/Vol] 98 mg/dL Normal 65-99 [facility]; [facility] Work Phone: Potassium [Moles/Vol] 6.5 mmol/L Abnormal 3.5-5.2 [facility] prehensive Internal Medicine; [facility] Work Phone: Protein [Mass/Vol] 6.6 g/dL Normal 6.0-8.5 [facility]; [facility] Work Phone: Sodium [Moles/Vol] 144 mmol/L Normal 134-144 [facility]; [facility] Work Phone: Urea nitrogen [Mass/Vol] 15 mg/dL Normal 8-27 [facility]; [facility] Work Phone: Urea nitrogen/Creatinine [Mass ratio] 26 mg/mg Normal 11-26 [facility]; [facility] Work Phone: Hemoglobin Glyclated (HGB A1 C) ([id number])Ordered By: Catherine Magana on 12-11-2014 HbA1c (Bld) [Mass fraction] 5.7 % Normal 4.6 - 7.1 [facility]; [facility] Work Phone: LIPID PANEL ([id number])Ordered B y: Melter Caster on 12-03-2014 Cholesterol [Mass/Vol] 190 mg/dL Normal 100-199 [facility]; [facility] Work Phone: Cholesterol in HDL [Mass/Vol] 58 mg/dL Normal [facility]; [facility] Work Phone: Cholesterol in LDL [Mass/Vol] 114 mg/dL Abnormal 0-99 [facility]; [facility] Work Phone: Cholesterol in LDL/Cholesterol in HDL [Mass ratio] 2.0 {ratio_units} Normal 0.0-3.2 [facility]; [facility] Work Phone: Cholesterol in VLDL [Mass/Vol] 18 mg/dL Normal 5-40 [facility]; [facility] Work Phone: Triglyceride [Mass/Vol] 89 mg/dL Normal 0-149 [facility]; [facility] Work Phone: METABOLIC PANEL, COMPREHENSI VE ([id number])Ordered By: Melter Caster on 12-03-2014 Albumin [Mass/Vol] 4.0 g/dL Normal 3.5-4.8 [facility]; [facility] Work Phone: Albumin/Globulin [Mass ratio] 1.9 {ratio} Normal 1.1-2.5 [facility]; [facility] Work Phone: ALP [Catalytic activity/Vol] 65 U/L Normal 39-117 [facility]; [facility] Work Phone: ALT [Catalytic activity/Vol] 10 U/L Normal 0-32 [facility]; [facility] Work Phone: AST [Catalytic activity/Vol] 11 U/L Normal 0-40 [facility]; [facility] Work Phone: Bilirubin [Mass/Vol] 0.8 mg/dL Normal 0.0-1.2 [facility]; [facility] Work Phone: Calcium [Mass/Vol] 9.0 mg/dL Normal 8.7-10.3 [facility]; [facility] Work Phone: Chloride [Moles/Vol] 104 mmol/L Normal 97-108 [facility]; [facility] Work Phone: CO2 [Moles/Vol] 23 mmol/L Normal 18-29 [facility]; [facility] Work Phone: Creatinine [Mass/Vol] 0.57 mg/dL Normal 0.57-1.00 [facility] prehensive Internal Medicine; [facility] Work Phone: GFR/1.73 sq M.predicted among blacks CKD-EPI (S/P/Bld) [Vol rate/Area] 107 mL/min/1.73 Normal [facility]; [facility] Work Phone: GFR/1.73 sq M.predicted among non-blacks CKD-EPI (S/P/Bld) [Vol rate/Area] 93 mL/min/1.73 Normal [facility]; [facility] Work Phone: Globulin (S) [Mass/Vol] 2.1 g/dL Normal 1.5-4.5 [facility]; [facility] Work Phone: Glucose [Mass/Vol] 116 mg/dL Abnormal 65-99 [facility]; [facility] Work Phone: Potassium [Moles/Vol] 4.3 mmol/L Normal 3.5-5.2 [facility]; [facility] Work Phone: Protein [Mass/Vol] 6.1 g/dL Normal 6.0-8.5 [facility]; [facility] Work Phone: Sodium [Moles/Vol] 143 mmol/L Normal 134-144 [facility]; [facility] Work Phone: Urea nitrogen [Mass/Vol] 14 mg/dL Normal 8-27 [facility]; [facility] Work Phone: Urea nitrogen/Creatinine [Mass ratio] 25 mg/mg Normal 11-26 [facility]; [facility] Work Phone: PARATHORMONE ([id number])Ordered By: Melter Caster on 12-03-2014 Parathyrin.intact [Mass/Vol] 28 pg/mL Normal 15-65 [facility]; [facility] Work Phone: PHOSPHORUS ([id number])Ordered By : Melter Caster on 12-03-2014 Phosphate [Mass/Vol] 3.8 mg/dL Normal 2.5-4.5 [facility]; [facility] Work Phone: TSH ([id number])Ordered By: Joy m Electron 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 on 12-03-2014 TSH Qn 1.600 {uIU/mL} Normal 0.450-4.500 [facility]; [facility] Work Phone: Vitamin D Hydroxy ([id number])Ord ered By: Melter Caster on 12-03-2014 25-hydroxyvitamin D [Mass/Vol] 63.3 ng/mL Normal 30.0-100.0 [facility]; [facility] Work Phone: HgA1C , Office ([id number])Ordere d By: Irina Waddell on 09-11-2014 HbA1c (Bld) [Mass fraction] 5.8 % Normal 4.6 - 7.1 [facility]; [facility] Work Phone: CBC W/AUTO DIFF WBC ([id number])O rdered By: Melter Caster on 02-26-2014 Basophils (Bld) [#/Vol] 0.0 10*3/uL Normal 0.0-0.2 [facility]; [facility] Work Phone: Basophils/100 WBC (Bld) 1 % Normal [facility]; [facility] Work Phone: Eosinophils (Bld) [#/Vol] 0.2 10*3/uL Normal 0.0-0.4 [facility]; [facility] Work Phone: Eosinophils/100 WBC (Bld) 2 % Normal [facility]; [facility] Work Phone: Erythrocyte distribution width (RBC) [Ratio] 13.8 % Normal 12.3-15.4 [facility]; [facility] Work Phone: Hematocrit (Bld) [Volume fraction] 40.7 % Normal 34.0-46.6 [facility]; [facility] Work Phone: Hemoglobin (Bld) [Mass/Vol] 13.4 g/dL Normal 11.1-15.9 [facility]; [facility] Work Phone: Immature granulocytes (Bld) [#/Vol] 0.0 10*3/uL Normal 0.0-0.1 [facility]; [facility] Work Phone: Immature granulocytes/100 WBC (Bld) 0 % Normal [facility]; [facility] Work Phone: Lymphocytes (Bld) [#/Vol] 2.7 10*3/uL Normal 0.7-3.1 [facility]; [facility] Work Phone: Lymphocytes/100 WBC (Bld) 43 % Normal [facility]; [facility] Work Phone: MCH (RBC) [Entitic mass] 29.1 pg Normal 26.6-33.0 [facility]; [facility] Work Phone: MCHC (RBC) [Mass/Vol] 32.9 g/dL Normal 31.5-35.7 [facility]; [facility] Work Phone: MCV (RBC) [Entitic vol] 89 fL Normal 79-97 [facility]; [facility] Work Phone: Monocytes (Bld) [#/Vol] 0.4 10*3/uL Normal 0.1-0.9 [facility]; [facility] Work Phone: Monocytes/100 WBC (Bld) 6 % Normal [facility]; [facility] Work Phone: Neutrophils (Bld) [#/Vol] 3.0 10*3/uL Normal 1.4-7.0 [facility]; [facility] Work Phone: Neutrophils/100 WBC (Bld) 48 % Normal [facility]; [facility] Work Phone: Platelets (Bld) [#/Vol] 281 10*3/uL Normal 150-379 [facility]; [facility] Work Phone: RBC (Bld) [#/Vol] 4.60 10*6/uL Normal 3.77-5.28 [facility] ehensive [facility]; [facility] Work Phone: WBC (Bld) [#/Vol] 6.3 10*3/uL Normal 3.4-10.8 [facility]; [facility] Work Phone: Hemoglobin Glyclated (HGB A1 C) ([id number])Ordered By: Melter Caster on 02-26-2014 HbA1c (Bld) [Mass fraction] 5.7 % Abnormal 4.8-5.6 [facility]; [facility] Work Phone: LIPID PANEL ([id number])Ordered B y: Melter Caster on 02-26-2014 Cholesterol [Mass/Vol] 193 mg/dL Normal 100-199 [facility]; [facility] Work Phone: Cholesterol in HDL [Mass/Vol] 55 mg/dL Normal [facility]; [facility] Work Phone: Cholesterol in LDL [Mass/Vol] 119 mg/dL Abnormal 0-99 [facility]; [facility] Work Phone: Cholesterol in LDL/Cholesterol in HDL [Mass ratio] 2.2 {ratio_units} Normal 0.0-3.2 [facility]; [facility] Work Phone: Cholesterol in VLDL [Mass/Vol] 19 mg/dL Normal 5-40 [facility]; [facility] Work Phone: Triglyceride [Mass/Vol] 94 mg/dL Normal 0-149 [facility]; [facility] Work Phone: METABOLIC PANEL, COMPREHENSI VE ([phone])Ordered By: Melter Caster on 02-26-2014 Albumin [Mass/Vol] 4.0 g/dL Normal 3.5-4.8 [facility]; [facility] Work Phone: Albumin/Globulin [Mass ratio] 2.0 {ratio} Normal 1.1-2.5 [facility]; [facility] Work Phone: ALP [Catalytic activity/Vol] 70 U/L Normal 39-117 [facility]; [facility] Work Phone: ALT [Catalytic activity/Vol] 13 U/L Normal 0-32 [facility]; [facility] Work Phone: AST [Catalytic activity/Vol] 16 U/L Normal 0-40 [facility]; [facility] Work Phone: Bilirubin [Mass/Vol] 0.4 mg/dL Normal 0.0-1.2 [facility]; [facility] Work Phone: Calcium [Mass/Vol] 9.3 mg/dL Normal 8.6-10.2 [facility]; [facility] Work Phone: Chloride [Moles/Vol] 103 mmol/L Normal 97-108 [facility]; [facility] Work Phone: CO2 [Moles/Vol] 24 mmol/L Normal 18-29 [facility]; [facility] Work Phone: Creatinine [Mass/Vol] 0.75 mg/dL Normal 0.57-1.00 [facility]; [facility] Work Phone: GFR/1.73 sq M.predicted among blacks CKD-EPI (S/P/Bld) [Vol rate/Area] 92 mL/min/1.73 Normal [facility]; [facility] Work Phone: GFR/1.73 sq M.predicted among non-blacks CKD-EPI (S/P/Bld) [Vol rate/Area] 80 mL/min/1.73 Normal [facility]; [facility] Work Phone: Globulin (S) [Mass/Vol] 2.0 g/dL Normal 1.5-4.5 [facility]; [facility] Work Phone: Glucose [Mass/Vol] 101 mg/dL Abnormal 65-99 [facility]; [facility] Work Phone: Potassium [Moles/Vol] 4.5 mmol/L Normal 3.5-5.2 [facility]; [facility] Work Phone: Protein [Mass/Vol] 6.0 g/dL Normal 6.0-8.5 [facility]; [facility] Work Phone: Sodium [Moles/Vol] 142 mmol/L Normal 134-144 [facility]; [facility] Work Phone: Urea nitrogen [Mass/Vol] 14 mg/dL Normal 8-27 [facility]; [facility] Work Phone: Urea nitrogen/Creatinine [Mass ratio] 19 mg/mg Normal - [facility]; [facility] Work Phone: TSH ([id number])Ordered By: [employer] Electron 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 on 02-26-2014 TSH Qn 1.700 {uIU/mL} Normal 0.450-4.500 [facility]; [facility] Work Phone: Urinalysis, Office ([id number])Or dered By: Tabitha Bianchi on 09-21-2013 Bilirubin Ql (U) Negative Normal [facility]; [facility] Work Phone: Glucose Test strip (U) [Mass/Vol] Negative Normal [facility]; [facility] Work Phone: Hemoglobin Ql (U) Negative Normal [facility]; [facility] Work Phone: Ketones Ql (U) Negative Normal [facility]; [facility] Work Phone: Leukocyte esterase Test strip Ql (U) Negative Normal [facility]; [facility] Work Phone: Nitrite Ql (U) Negative Normal [facility]; [facility] Work Phone: pH (U) 6 [pH] Abnormal [facility]; [facility] Work Phone: Protein Ql (U) Negative Normal [facility]; [facility] Work Phone: Specific gravity (U) [Rel density] 1.005 1 Normal [facility]; [facility] Work Phone: Urobilinogen (24H U) [Mass/Time] Normal Normal [facility]; [facility] Work Phone: URINE IGOR CULTURE (SAMANTHA COL COUNT) ([id number])Ordered By: Melter Caster on 09-10-2013 Bacteria identified Cx Nom (U) Final report Abnormal [facility]; [facility] Work Phone: Bacteria identified Cx Nom (U) ENTEAE Abnormal [facility]; [facility] Work Phone: Urinalysis, Office ([id number])Or dered By: Tabitha Bianchi on 09-10-2013 Bilirubin Ql (U) Negative Normal [facility]; [facility] Work Phone: Glucose Test strip (U) [Mass/Vol] Negative Normal [facility]; [facility] Work Phone: Hemoglobin Ql (U) Non Hemolyzed Trace Normal [facility]; [facility] Work Phone: Ketones Ql (U) Negative Normal [facility]; [facility] Work Phone: Leukocyte esterase Test strip Ql (U) Small Normal [facility]; [facility] Work Phone: Nitrite Ql (U) Negative Normal [facility]; [facility] Work Phone: pH (U) 6 [pH] Abnormal [facility]; [facility] Work Phone: Protein Ql (U) Negative Normal [facility]; [facility] Work Phone: Specific gravity (U) [Rel density] 1.010 1 Normal [facility]; [facility] Work Phone: Urobilinogen (24H U) [Mass/Time] Normal Normal [facility]; [facility] Work Phone: URINE IGOR CULTURE-IDENTIFICA [place] ([id number])Ordered By: Melter Caster on 08-10-2013 Bacteria identified Cx Nom (U) Final report Abnormal [facility]; [facility] Work Phone: Bacteria identified Cx Nom (U) Enterococcus faecalis Abnormal [facility]; [facility] Work Phone: Other Antibiotic [Susc] MIHEAD Normal [facility]; [facility] Work Phone: Urinalysis, Office ([id number])Or dered By: Kirsten Pearson on 08-10-2013 Bilirubin Ql (U) Negative Normal Compre[facility]; [facility] Work Phone: Glucose Test strip (U) [Mass/Vol] Negative Normal [facility]; [facility] Work Phone: Hemoglobin Ql (U) Non Hemolyzed Trace Normal [facility]; [facility] Work Phone: Ketones Ql (U) Negative Normal [facility]; [facility] Work Phone: Leukocyte esterase Test strip Ql (U) Negative Normal [facility]; [facility] Work Phone: Nitrite Ql (U) Negative Normal [facility]; [facility] Work Phone: pH (U) 5 [pH] Abnormal [facility]; [facility] Work Phone: Protein Ql (U) Negative Normal [facility]; [facility] Work Phone: Specific gravity (U) [Rel density] 1.005 1 Normal [facility]; [facility] Work Phone: Urobilinogen (24H U) [Mass/Time] Normal Normal [facility]; [facility] Work Phone: URINE IGOR CULTURE-IDENTIFICA [place] ([id number])Ordered By: Melter Caster on 07-26-2013 Bacteria identified Cx Nom (U) Final report Abnormal [facility]; [facility] Work Phone: Bacteria identified Cx Nom (U) ENTEAE Abnormal [facility]; [facility] Work Phone: Urinalysis, Office ([phone])Or dered By: Kirsten Pearson on 07-26-2013 Bilirubin Ql (U) Negative Normal Compre[facility]; [facility] Work Phone: Glucose Test strip (U) [Mass/Vol] Negative Normal [facility]; [facility] Work Phone: Hemoglobin Ql (U) Hemolyzed Small Normal Co [facility]; [facility] Work Phone: Ketones Ql (U) Negative Normal [facility]; [facility] Work Phone: Leukocyte esterase Test strip Ql (U) Small Normal [facility]; [facility] Work Phone: Nitrite Ql (U) Negative Normal [facility]; [facility] Work Phone: pH (U) 7 [pH] Normal [facility]; [facility] Work Phone: Protein Ql (U) Negative Normal [facility]; [facility] Work Phone: Specific gravity (U) [Rel density] 1.010 1 Normal [facility]; [facility] Work Phone: Urobilinogen (24H U) [Mass/Time] Normal Normal [facility]; [facility] Work Phone: HgA1C , Office ([phone])Ordere d By: Catherine Magana on 06-01-2013 HbA1c (Bld) [Mass fraction] 6.00 % Normal 4.6 - 7.1 [facility]; [facility] Work Phone: CALCIFEDIOL ([id number])Ordered B y: Melter Caster on 05-24-2013 25-hydroxyvitamin D [Mass/Vol] 74.3 ng/mL Normal 30.0-100.0 [facility]; [facility] Work Phone: CBC, PLATELETS & MANUAL DIFF ([id number])Ordered By: Melter Caster on 05-24-2013 Basophils (Bld) [#/Vol] 0.0 10*3/uL Normal 0.0-0.2 [facility]; [facility] Work Phone: Basophils/100 WBC (Bld) 0 % Normal 0-3 [facility]; [facility] Work Phone: Eosinophils (Bld) [#/Vol] 0.2 10*3/uL Normal 0.0-0.4 [facility]; [facility] Work Phone: Eosinophils/100 WBC (Bld) 2 % Normal 0-5 [facility]; [facility] Work Phone: Erythrocyte distribution width (RBC) [Ratio] 14.3 % Normal 12.3-15.4 [facility]; [facility] Work Phone: Hematocrit (Bld) [Volume fraction] 44.5 % Normal 34.0-46.6 [facility]; [facility] Work Phone: Hemoglobin (Bld) [Mass/Vol] 14.5 g/dL Normal 11.1-15.9 [facility]; [facility] Work Phone: Immature granulocytes (Bld) [#/Vol] 0.0 10*3/uL Normal 0.0-0.1 [facility]; [facility] Work Phone: Immature granulocytes/100 WBC (Bld) 0 % Normal 0-2 [facility]; [facility] Work Phone: Lymphocytes (Bld) [#/Vol] 3.2 10*3/uL Abnormal 0.7-3.1 [facility]; [facility] Work Phone: Lymphocytes/100 WBC (Bld) 43 % Normal 14-46 [facility]; [facility] Work Phone: MCH (RBC) [Entitic mass] 28.8 pg Normal 26.6-33.0 [facility]; [facility] Work Phone: MCHC (RBC) [Mass/Vol] 32.6 g/dL Normal 31.5-35.7 [facility] prehensive [facility]; [facility] Work Phone: MCV (RBC) [Entitic vol] 89 fL Normal 79-97 [facility]; [facility] Work Phone: Monocytes (Bld) [#/Vol] 0.6 10*3/uL Normal 0.1-0.9 [facility]; [facility] Work Phone: Monocytes/100 WBC (Bld) 8 % Normal 4-12 [facility]; [facility] Work Phone: Neutrophils (Bld) [#/Vol] 3.5 10*3/uL Normal 1.4-7.0 [facility]; [facility] Work Phone: Neutrophils/100 WBC (Bld) 47 % Normal 40-74 [facility]; [facility] Work Phone: Platelets (Bld) [#/Vol] 314 10*3/uL Normal 155-379 [facility]; [facility] Work Phone: RBC (Bld) [#/Vol] 5.03 10*6/uL Normal 3.77-5.28 [facility]; [facility] Work Phone: WBC (Bld) [#/Vol] 7.5 10*3/uL Normal 3.4-10.8 [facility]; [facility] Work Phone: LIPID PANEL ([id number])Ordered B y: Melter Caster on 05-24-2013 Cholesterol [Mass/Vol] 231 mg/dL Abnormal 100-199 [facility]; [facility] Work Phone: Cholesterol in HDL [Mass/Vol] 63 mg/dL Normal [facility]; [facility] Work Phone: Cholesterol in LDL [Mass/Vol] 136 mg/dL Abnormal 0-99 [facility]; [facility] Work Phone: Cholesterol in LDL/Cholesterol in HDL [Mass ratio] 2.2 {ratio_units} Normal 0.0-3.2 [facility]; [facility] Work Phone: Cholesterol in VLDL [Mass/Vol] 32 mg/dL Normal 5-40 [facility]; [facility] Work Phone: Triglyceride [Mass/Vol] 161 mg/dL Abnormal 0-149 [facility]; [facility] Work Phone: METABOLIC PANEL, COMPREHENSI VE ([id number])Ordered By: Melter Caster on 05-24-2013 Albumin [Mass/Vol] 4.4 g/dL Normal 3.5-4.8 [facility]; [facility] Work Phone: Albumin/Globulin [Mass ratio] 1.8 {ratio} Normal 1.1-2.5 [facility]; [facility] Work Phone: ALP [Catalytic activity/Vol] 77 U/L Normal 39-117 [facility]; [facility] Work Phone: ALT [Catalytic activity/Vol] 19 U/L Normal 0-32 [facility]; [facility] Work Phone: AST [Catalytic activity/Vol] 19 U/L Normal 0-40 [facility]; [facility] Work Phone: Bilirubin [Mass/Vol] 0.7 mg/dL Normal 0.0-1.2 [facility]; [facility] Work Phone: Calcium [Mass/Vol] 9.7 mg/dL Normal 8.6-10.2 [facility]; [facility] Internal Medicine Work Phone: Chloride [Moles/Vol] 103 mmol/L Normal 97-108 [facility] Internal Medicine; [facility] Internal Medicine Work Phone: CO2 [Moles/Vol] 24 mmol/L Normal 19-28 [facility] Internal Medicine; [facility] Internal Medicine Work Phone: Creatinine [Mass/Vol] 0.73 mg/dL Normal 0.57-1.00 [facility] Internal [facility]; [facility] Internal Medicine Work Phone: GFR/1.73 sq M.predicted among blacks CKD-EPI (S/P/Bld) [Vol rate/Area] 96 mL/min/1.73 Normal [facility] Internal Medicine; [facility] Internal Medicine Work Phone: GFR/1.73 sq M.predicted among non-blacks CKD-EPI (S/P/Bld) [Vol rate/Area] 83 mL/min/1.73 Normal [facility] Internal Medicine; [facility] Internal Medicine Work Phone: Globulin (S) [Mass/Vol] 2.4 g/dL Normal 1.5-4.5 [facility] Internal Medicine; [facility] Internal Medicine Work Phone: Glucose [Mass/Vol] 105 mg/dL Abnormal 65-99 [facility] Internal Medicine; [facility] Internal Medicine Work Phone: Potassium [Moles/Vol] 4.1 mmol/L Normal 3.5-5.2 [facility] Internal [facility]; [facility] Internal Medicine Work Phone: Protein [Mass/Vol] 6.8 g/dL Normal 6.0-8.5 [facility] Internal [facility]; [facility] Work Phone: Sodium [Moles/Vol] 141 mmol/L Normal 134-144 [facility]; [facility] Work Phone: Urea nitrogen [Mass/Vol] 14 mg/dL Normal 8-27 [facility]; [facility] Work Phone: Urea nitrogen/Creatinine [Mass ratio] 19 mg/mg Normal 11-26 [facility]; [facility] Work Phone: MICROALB;CREAT RATION, RAND UR ([id number])Ordered By: Melter Caster on 05-24-2013 Albumin DL <= 20 mg/L (U) [Mass/Vol] 9.4 ug/mL Normal 0.0-17.0 [facility]; [facility] Work Phone: Albumin/Creatinine (U) [Mass ratio] 6.9 {mg/g_creat} Normal 0.0-30.0 [facility]; [facility] Work Phone: Creatinine (U) [Mass/Vol] 137.2 mg/dL Normal 15.0-278.0 [facility]; [facility] Work Phone: TSH (THYROID STIMULATING HOR YAJAIRA) ([id number])Ordered By: Melter Caster on 05-24-2013 TSH Qn 2.290 {uIU/mL} Normal 0.450-4.500 [facility] Internal Medicine; [facility] Work Phone: HgA1C , Office ([id number])Ordere d By: Irina Waddell on 07-12-2012 HbA1c (Bld) [Mass fraction] 5.8 % Normal 4.6 - 7.1 [facility]; [facility] Work Phone: URINE IGOR CULTURE-IDENTIFICA [place] ([id number])Ordered By: Melter Caster on 07-10-2012 Bacteria identified Cx Nom (U) Final report Normal [facility]; [facility] Work Phone: Bacteria identified Cx Nom (U) Escherichia coli Normal [facility]; [facility] Work Phone: Other Antibiotic [Susc] MIHEAD Normal [facility]; [facility] Work Phone: Urinalysis, Office ([id number])Or dered By: Brenda Moyer on 07-10-2012 Bilirubin Ql (U) Negative Normal Comprehe nsive Internal Medicine; [facility] Work Phone: Glucose Test strip (U) [Mass/Vol] Negative Normal [facility]; [facility] Work Phone: Hemoglobin Ql (U) Hemolyzed Trace Normal [facility]; [facility] Work Phone: Ketones Ql (U) Negative Normal Comprehens [facility]; [facility] Work Phone: Leukocyte esterase Test strip Ql (U) Small Normal [facility]; [facility] Work Phone: Nitrite Ql (U) Negative Normal [facility]; [facility] Work Phone: pH (U) 5.0 [pH] Normal [facility]; [facility] Work Phone: Protein Ql (U) Negative Normal Com[facility]; [facility] Work Phone: Specific gravity (U) [Rel density] 1.010 1 Normal [facility]; [facility] Work Phone: Urobilinogen (24H U) [Mass/Time] Normal Normal [facility]; [facility] Work Phone: CBC with manual diff ([id number]) Ordered By: Melter Caster on 07-03-2012 Basophils (Bld) [#/Vol] 0.0 10*3/uL Normal 0.0-0.2 [facility]; [facility] Work Phone: Basophils/100 WBC (Bld) 0 % Normal 0-3 [facility]; [facility] Work Phone: Eosinophils (Bld) [#/Vol] 0.3 10*3/uL Normal 0.0-0.4 [facility]; [facility] Work Phone: Eosinophils/100 WBC (Bld) 4 % Normal 0-7 [facility]; [facility] Work Phone: Erythrocyte distribution width (RBC) [Ratio] 13.4 % Normal 12.3-15.4 [facility]; [facility] Work Phone: Hematocrit (Bld) [Volume fraction] 43.3 % Normal 34.0-46.6 [facility]; [facility] Work Phone: Hemoglobin (Bld) [Mass/Vol] 14.0 g/dL Normal 11.1-15.9 [facility]; [facility] Work Phone: Immature granulocytes (Bld) [#/Vol] 0.0 10*3/uL Normal 0.0-0.1 [facility]; [facility] Work Phone: Immature granulocytes/100 WBC (Bld) 0 % Normal 0-2 [facility]; [facility] Work Phone: Lymphocytes (Bld) [#/Vol] 2.9 10*3/uL Normal 0.7-4.5 [facility]; [facility] Work Phone: Lymphocytes/100 WBC (Bld) 40 % Normal 14-46 [facility]; [facility] Work Phone: MCH (RBC) [Entitic mass] 29.7 pg Normal 26.6-33.0 [facility]; [facility] Work Phone: MCHC (RBC) [Mass/Vol] 32.3 g/dL Normal 31.5-35.7 [facility] prehensive Internal Medicine; [facility] Work Phone: MCV (RBC) [Entitic vol] 92 fL Normal 79-97 [facility]; [facility] Work Phone: Monocytes (Bld) [#/Vol] 0.5 10*3/uL Normal 0.1-1.0 [facility]; [facility] Work Phone: Monocytes/100 WBC (Bld) 7 % Normal 4-13 [facility]; [facility] Work Phone: Neutrophils (Bld) [#/Vol] 3.5 10*3/uL Normal 1.8-7.8 [facility]; [facility] Work Phone: Neutrophils/100 WBC (Bld) 49 % Normal 40-74 [facility]; [facility] Work Phone: Platelets (Bld) [#/Vol] 239 10*3/uL Normal 140-415 [facility]; [facility] Work Phone: RBC (Bld) [#/Vol] 4.71 10*6/uL Normal 3.77-5.28 Compr ehensive Internal Medicine; [facility] Work Phone: WBC (Bld) [#/Vol] 7.2 10*3/uL Normal 4.0-10.5 [facility]; [facility] Work Phone: Lipid Panel ([id number])Ordered B y: Melter Caster on 07-03-2012 Cholesterol [Mass/Vol] 189 mg/dL Normal 100-199 [facility]; [facility] Work Phone: Cholesterol in HDL [Mass/Vol] 54 mg/dL Normal [facility]; [facility] Work Phone: Cholesterol in LDL [Mass/Vol] 115 mg/dL Abnormal 0-99 [facility]; [facility] Work Phone: Cholesterol in LDL/Cholesterol in HDL [Mass ratio] 2.1 {ratio_units} Normal 0.0-3.2 [facility]; [facility] Work Phone: Cholesterol in VLDL [Mass/Vol] 20 mg/dL Normal 5-40 [facility]; [facility] Work Phone: Triglyceride [Mass/Vol] 100 mg/dL Normal 0-149 [facility]; [facility] Work Phone: Metabolic Panel, Comprehensi ve ([id number])Ordered By: Melter Caster on 07-03-2012 Albumin [Mass/Vol] 4.1 g/dL Normal 3.5-4.8 [facility]; [facility] Work Phone: Albumin/Globulin [Mass ratio] 1.9 {ratio} Normal 1.1-2.5 [facility]; [facility] Work Phone: ALP [Catalytic activity/Vol] 76 U/L Normal 25-165 [facility] Internal Medicine; [facility] Work Phone: ALT [Catalytic activity/Vol] 19 U/L Normal 0-32 [facility] Internal Medicine; [facility] Work Phone: AST [Catalytic activity/Vol] 23 U/L Normal 0-40 [facility] Internal Medicine; [facility] Internal Medicine Work Phone: Bilirubin [Mass/Vol] 0.6 mg/dL Normal 0.0-1.2 [facility] Internal Medicine; [facility] Internal Medicine Work Phone: Calcium [Mass/Vol] 9.2 mg/dL Normal 8.6-10.2 [facility] Internal Medicine; [facility] Internal Medicine Work Phone: Chloride [Moles/Vol] 103 mmol/L Normal 97-108 [facility] Internal Medicine; [facility] Work Phone: CO2 [Moles/Vol] 22 mmol/L Normal 20-32 [facility] Internal Medicine; [facility] Work Phone: Creatinine [Mass/Vol] 0.72 mg/dL Normal 0.57-1.00 [facility] Internal Medicine; [facility] Internal Medicine Work Phone: GFR/1.73 sq M.predicted among blacks CKD-EPI (S/P/Bld) [Vol rate/Area] 98 mL/min/1.73 Normal [facility] Internal Medicine; [facility] Internal Medicine Work Phone: GFR/1.73 sq M.predicted among non-blacks CKD-EPI (S/P/Bld) [Vol rate/Area] 85 mL/min/1.73 Normal [facility] Internal Medicine; [facility] Internal Medicine Work Phone: Globulin (S) [Mass/Vol] 2.2 g/dL Normal 1.5-4.5 [facility] Internal Medicine; [facility] Internal Medicine Work Phone: Glucose [Mass/Vol] 105 mg/dL Abnormal 65-99 [facility] Internal Medicine; [facility] Internal Medicine Work Phone: Potassium [Moles/Vol] 4.2 mmol/L Normal 3.5-5.2 [facility] prehensive Internal Medicine; [facility] Work Phone: Protein [Mass/Vol] 6.3 g/dL Normal 6.0-8.5 [facility]; [facility] Work Phone: Sodium [Moles/Vol] 141 mmol/L Normal 134-144 [facility] Internal Medicine; [facility] Work Phone: Urea nitrogen [Mass/Vol] 13 mg/dL Normal 8-27 [facility] Internal Medicine; [facility] Work Phone: Urea nitrogen/Creatinine [Mass ratio] 18 mg/mg Normal 11- [facility]; [facility] Work Phone: URINE IGOR CULTURE-SAMANTHA COL C OUNT ([id number])Ordered By: Melter Caster on 06-20-2012 Bacteria identified Cx Nom (U) Final report Normal [facility] Internal Medicine; [facility] Work Phone: Bacteria identified Cx Nom (U) ENTEAE Normal [facility] Internal Medicine; [facility] Work Phone: Urinalysis, Office ([id number])Or dered By: Enriqueta Gibson on 06-20-2012 Bilirubin Ql (U) Negative Normal Comprehe nsive Internal Medicine; [facility] Work Phone: Glucose Test strip (U) [Mass/Vol] Negative Normal [facility] Internal Medicine; [facility] Work Phone: Hemoglobin Ql (U) Hemolyzed Large Normal [facility]; [facility] Work Phone: Ketones Ql (U) Negative Normal [facility]; [facility] Work Phone: Leukocyte esterase Test strip Ql (U) Moderate Normal [facility]; [facility] Work Phone: Nitrite Ql (U) Negative Normal [facility]; [facility] Work Phone: pH (U) 6.0 [pH] Normal [facility] Internal Medicine; [facility] Work Phone: Protein Ql (U) Negative Normal [facility]; [facility] Work Phone: Specific gravity (U) [Rel density] 1.005 1 Normal [facility]; [facility] Work Phone: Urobilinogen (24H U) [Mass/Time] 2 mg/dL Normal [facility]; [facility] Work Phone: Hemoglobin Glyclated (HGB A1 C) ([id number])Ordered By: Catherine Magana on 03-08-2012 HbA1c (Bld) [Mass fraction] 5.8 % Normal 4.6 - 7.1 [facility]; [facility] Work Phone: URINE IGOR CULTURE-IDENTIFICA [place] ([id number])Ordered By: Melter Caster on 03-08-2012 Bacteria identified Cx Nom (U) Final report Normal [facility]; [facility] Work Phone: Bacteria identified Cx Nom (U) MUG Normal [facility]; [facility] Work Phone: Urinalysis, Office ([id number])Or dered By: Vicki Hinson on 03-08-2012 Bilirubin Ql (U) Negative Normal Comprehe nsive Internal Medicine; [facility] Work Phone: Glucose Test strip (U) [Mass/Vol] Negative Normal [facility]; [facility] Work Phone: Hemoglobin Ql (U) Negative Normal Compreh ensive Internal Medicine; [facility] Work Phone: Ketones Ql (U) Negative Normal [facility]; [facility] Work Phone: Leukocyte esterase Test strip Ql (U) Negative Normal [facility]; [facility] Work Phone: Nitrite Ql (U) Negative Normal Com[facility]; [facility] Work Phone: pH (U) 6.0 [pH] Normal [facility]; [facility] Work Phone: Protein Ql (U) Negative Normal Com[facility]; [facility] Work Phone: Specific gravity (U) [Rel density] 1.005 1 Normal [facility]; [facility] Work Phone: Urobilinogen (24H U) [Mass/Time] Normal Normal [facility]; [facility] Work Phone: CBC WITH MANUAL DIFF ([id number]) Ordered By: Melter Caster on 02-29-2012 Basophils (Bld) [#/Vol] 0.0 10*3/uL Normal 0.0-0.2 [facility]; [facility] Work Phone: Basophils/100 WBC (Bld) 1 % Normal 0-3 [facility]; [facility] Work Phone: Eosinophils (Bld) [#/Vol] 0.1 10*3/uL Normal 0.0-0.4 [facility]; [facility] Work Phone: Eosinophils/100 WBC (Bld) 2 % Normal 0-7 [facility]; [facility] Work Phone: Erythrocyte distribution width (RBC) [Ratio] 14.0 % Normal 12.3-15.4 [facility]; [facility] Work Phone: Hematocrit (Bld) [Volume fraction] 41.7 % Normal 34.0-46.6 [facility]; [facility] Work Phone: Hemoglobin (Bld) [Mass/Vol] 13.8 g/dL Normal 11.1-15.9 [facility]; [facility] Work Phone: Immature granulocytes (Bld) [#/Vol] 0.0 10*3/uL Normal 0.0-0.1 [facility]; [facility] Work Phone: Immature granulocytes/100 WBC (Bld) 0 % Normal 0-2 [facility]; [facility] Work Phone: Lymphocytes (Bld) [#/Vol] 2.3 10*3/uL Normal 0.7-4.5 [facility]; [facility] Work Phone: Lymphocytes/100 WBC (Bld) 45 % Normal 14-46 [facility]; [facility] Work Phone: MCH (RBC) [Entitic mass] 29.6 pg Normal 26.6-33.0 [facility]; [facility] Work Phone: MCHC (RBC) [Mass/Vol] 33.1 g/dL Normal 31.5-35.7 [facility] prehensive Internal Medicine; [facility] Work Phone: MCV (RBC) [Entitic vol] 90 fL Normal 79-97 [facility]; [facility] Work Phone: Monocytes (Bld) [#/Vol] 0.4 10*3/uL Normal 0.1-1.0 [facility]; [facility] Work Phone: Monocytes/100 WBC (Bld) 7 % Normal 4-13 [facility]; [facility] Work Phone: Neutrophils (Bld) [#/Vol] 2.3 10*3/uL Normal 1.8-7.8 [facility]; [facility] Work Phone: Neutrophils/100 WBC (Bld) 45 % Normal 40-74 [facility]; [facility] Work Phone: Platelets (Bld) [#/Vol] 238 10*3/uL Normal 140-415 [facility]; [facility] Work Phone: RBC (Bld) [#/Vol] 4.66 10*6/uL Normal 3.77-5.28 [facility] ehensive Internal Medicine; [facility] Work Phone: WBC (Bld) [#/Vol] 5.1 10*3/uL Normal 4.0-10.5 [facility]; [facility] Work Phone: LIPID PANEL ([id number])Ordered B y: Melter Caster on 02-29-2012 Cholesterol [Mass/Vol] 170 mg/dL Normal 100-199 [facility]; [facility] Work Phone: Cholesterol in HDL [Mass/Vol] 49 mg/dL Normal [facility]; [facility] Work Phone: Cholesterol in LDL [Mass/Vol] 96 mg/dL Normal 0-99 [facility]; [facility] Work Phone: Cholesterol in LDL/Cholesterol in HDL [Mass ratio] 2.0 {ratio_units} Normal 0.0-3.2 [facility] Internal Medicine; [facility] Work Phone: Cholesterol in VLDL [Mass/Vol] 25 mg/dL Normal 5-40 [facility]; [facility] Work Phone: Triglyceride [Mass/Vol] 127 mg/dL Normal 0-149 [facility]; [facility] Work Phone: METABOLIC PANEL, COMPREHENSI VE ([id number])Ordered By: Melter Caster on 02-29-2012 Albumin [Mass/Vol] 3.9 g/dL Normal 3.5-4.8 [facility] Internal Medicine; [facility] Internal Medicine Work Phone: Albumin/Globulin [Mass ratio] 1.7 {ratio} Normal 1.1-2.5 [facility] Internal Medicine; [facility] Internal Medicine Work Phone: ALP [Catalytic activity/Vol] 70 U/L Normal 25-165 [facility]; [facility] Work Phone: ALT [Catalytic activity/Vol] 26 U/L Normal 0-32 [facility]; [facility] Work Phone: AST [Catalytic activity/Vol] 22 U/L Normal 0-40 [facility] Internal Medicine; [facility] Internal Medicine Work Phone: Bilirubin [Mass/Vol] 0.8 mg/dL Normal 0.0-1.2 [facility]; [facility] Work Phone: Calcium [Mass/Vol] 9.2 mg/dL Normal 8.6-10.2 [facility]; [facility] Work Phone: Chloride [Moles/Vol] 104 mmol/L Normal 97-108 [facility]; [facility] Internal Medicine Work Phone: CO2 [Moles/Vol] 23 mmol/L Normal 20-32 [facility] Internal Medicine; [facility] Internal Medicine Work Phone: Creatinine [Mass/Vol] 0.77 mg/dL Normal 0.57-1.00 [facility] Internal Medicine; [facility] Internal Medicine Work Phone: GFR/1.73 sq M.predicted among blacks CKD-EPI (S/P/Bld) [Vol rate/Area] 90 mL/min/1.73 Normal [facility]; [facility] Work Phone: GFR/1.73 sq M.predicted among non-blacks CKD-EPI (S/P/Bld) [Vol rate/Area] 78 mL/min/1.73 Normal [facility]; [facility] Work Phone: Globulin (S) [Mass/Vol] 2.3 g/dL Normal 1.5-4.5 [facility]; [facility] Work Phone: Glucose [Mass/Vol] 102 mg/dL Abnormal 65-99 [facility]; [facility] Work Phone: Potassium [Moles/Vol] 4.4 mmol/L Normal 3.5-5.2 [facility] prehensive Internal Medicine; [facility] Work Phone: Protein [Mass/Vol] 6.2 g/dL Normal 6.0-8.5 [facility]; [facility] Work Phone: Sodium [Moles/Vol] 141 mmol/L Normal 134-144 [facility]; [facility] Work Phone: Urea nitrogen [Mass/Vol] 11 mg/dL Normal 8-27 [facility] Internal [facility]; [facility] Work Phone: Urea nitrogen/Creatinine [Mass ratio] 14 mg/mg Normal 11-26 [facility]; [facility] Work Phone: MICROALBUMINOrdered By: Syst em Electron 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 on 02-29-2012 Albumin DL <= 20 mg/L (U) [Mass/Vol] 5.3 ug/mL Normal 0.0-17.0 [facility]; [facility] Work Phone: Albumin/Creatinine (U) [Mass ratio] 4.2 {mg/g_creat} Normal 0.0-30.0 [facility]; [facility] Work Phone: Creatinine (U) [Mass/Vol] 126.4 mg/dL Normal 15.0-278.0 [facility]; [facility] Work Phone: TSH ([id number])Ordered By: Joy m Electron 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 on 02-29-2012 TSH Qn 1.770 {uIU/mL} Normal 0.450-4.500 Comprehen sive Internal Medicine; [facility] Work Phone: Vitamin D Hydroxy ([id number])Ord ered By: Melter Caster on 02-29-2012 25-hydroxyvitamin D [Mass/Vol] 62.7 ng/mL Normal 30.0-100.0 [facility]; [facility] Work Phone: URINE IGOR CULTURE-IDENTIFICA [place] ([id number])Ordered By: Melter Caster on 11-12-2011 Bacteria identified Cx Nom (U) Final report Normal [facility]; [facility] Work Phone: Bacteria identified Cx Nom (U) MUG Normal [facility]; [facility] Work Phone: Urinalysis, Office ([id number])Or dered By: Jennifer Huang on 11-12-2011 Bilirubin Ql (U) Negative Normal Comprehe nsive Internal Medicine; [facility] Work Phone: Glucose Test strip (U) [Mass/Vol] Negative Normal [facility]; [facility] Work Phone: Hemoglobin Ql (U) Hemolyzed Trace Normal [facility]; [facility] Work Phone: Ketones Ql (U) Negative Normal Comprehens [facility]; [facility] Work Phone: Leukocyte esterase Test strip Ql (U) Trace Normal [facility]; [facility] Work Phone: Nitrite Ql (U) Negative Normal Comprehens [facility]; [facility] Work Phone: pH (U) 6.0 [pH] Normal [facility]; [facility] Work Phone: Protein Ql (U) Negative Normal Comprehens [facility]a [facility]; [facility] Work Phone: Specific gravity (U) [Rel density] 1.020 1 Normal [facility]; [facility] Work Phone: Urobilinogen (24H U) [Mass/Time] Normal Normal [facility]; [facility] Work Phone: HgA1C , Office ([id number])Ordere d By: Irina Waddell on 11-09-2011 HbA1c (Bld) [Mass fraction] 5.8 % Normal 4.6 - 7.1 [facility]; [facility] Work Phone: LIPID PANEL ([id number])Ordered B y: Melter Caster on 11-01-2011 Cholesterol [Mass/Vol] 212 mg/dL Abnormal 100-199 [facility]; [facility] Work Phone: Cholesterol in HDL [Mass/Vol] 67 mg/dL Normal [facility]; [facility] Work Phone: Cholesterol in LDL [Mass/Vol] 116 mg/dL Abnormal 0-99 [facility]; [facility] Work Phone: Cholesterol in LDL/Cholesterol in HDL [Mass ratio] 1.7 {ratio_units} Normal 0.0-3.2 [facility]; [facility] Work Phone: Cholesterol in VLDL [Mass/Vol] 29 mg/dL Normal 5-40 [facility]; [facility] Work Phone: Triglyceride [Mass/Vol] 146 mg/dL Normal 0-149 [facility]; [facility] Work Phone: METABOLIC PANEL, COMPREHENSI VE ([id number])Ordered By: Melter Caster on 11-01-2011 Albumin [Mass/Vol] 3.9 g/dL Normal 3.6-4.8 [facility]; [facility] Work Phone: Albumin/Globulin [Mass ratio] 1.4 {ratio} Normal 1.1-2.5 [facility]; [facility] Work Phone: ALP [Catalytic activity/Vol] 70 U/L Normal 25-165 [facility]; [facility] Work Phone: ALT [Catalytic activity/Vol] 16 U/L Normal 0-40 [facility]; [facility] Work Phone: AST [Catalytic activity/Vol] 19 U/L Normal 0-40 [facility]; [facility] Work Phone: Bilirubin [Mass/Vol] 0.8 mg/dL Normal 0.0-1.2 [facility]; [facility] Work Phone: Calcium [Mass/Vol] 9.2 mg/dL Normal 8.6-10.2 [facility]; [facility] Work Phone: Chloride [Moles/Vol] 106 mmol/L Normal 97-108 [facility]; [facility] Work Phone: CO2 [Moles/Vol] 24 mmol/L Normal 20-32 [facility]; [facility] Work Phone: Creatinine [Mass/Vol] 0.70 mg/dL Normal 0.57-1.00 [facility]; [facility] Work Phone: GFR/1.73 sq M.predicted among blacks CKD-EPI (S/P/Bld) [Vol rate/Area] 102 mL/min/1.73 Normal [facility]; [facility] Work Phone: GFR/1.73 sq M.predicted among non-blacks CKD-EPI (S/P/Bld) [Vol rate/Area] 89 mL/min/1.73 Normal [facility]; [facility] Work Phone: Globulin (S) [Mass/Vol] 2.7 g/dL Normal 1.5-4.5 [facility]; [facility] Work Phone: Glucose [Mass/Vol] 99 mg/dL Normal 65-99 [facility]; [facility] Work Phone: Potassium [Moles/Vol] 4.4 mmol/L Normal 3.5-5.2 [facility]; [facility] Work Phone: Protein [Mass/Vol] 6.6 g/dL Normal 6.0-8.5 [facility]; [facility] Work Phone: Sodium [Moles/Vol] 143 mmol/L Normal 134-144 [facility]; [facility] Work Phone: Urea nitrogen [Mass/Vol] 17 mg/dL Normal 8-27 [facility]; [facility] Work Phone: Urea nitrogen/Creatinine [Mass ratio] 24 mg/mg Normal 11-26 [facility]; [facility] Work Phone: MICROALBUMINOrdered By: [employer] em Electron 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 on 11-01-2011 Albumin DL <= 20 mg/L (U) [Mass/Vol] 7.3 ug/mL Normal 0.0-17.0 [facility]; [facility] Work Phone: Albumin/Creatinine (U) [Mass ratio] 5.8 {mg/g_creat} Normal 0.0-30.0 [facility]; [facility] Work Phone: Creatinine (U) [Mass/Vol] 126.6 mg/dL Normal 15.0-278.0 [facility]; [facility] Work Phone: TSH ([id number])Ordered By: [employer] m Electron 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 on 11-01-2011 TSH Qn 1.950 {uIU/mL} Normal 0.450-4.500 Comprehen [facility]; [facility] Work Phone: Vitamin D Hydroxy ([id number])Ord ered By: Melter Caster on 11-01-2011 25-hydroxyvitamin D [Mass/Vol] 108.0 ng/mL Abnormal 30.0-100.0 [facility]; [facility] Work Phone: URINE IGOR CULTURE-IDENTIFICA [place] ([id number])Ordered By: Melter Caster on 10-29-2011 Bacteria identified Cx Nom (U) Final report Normal [facility]; [facility] Work Phone: Bacteria identified Cx Nom (U) ECV Normal [facility]; [facility] Work Phone: Urinalysis, Office ([id number])Or dered By: Brenda Moyer on 10-29-2011 Bilirubin Ql (U) Negative Normal [facility]; [facility] Work Phone: Glucose Test strip (U) [Mass/Vol] Negative Normal [facility]; [facility] Work Phone: Hemoglobin Ql (U) Hemolyzed Trace Normal [facility]; [facility] Work Phone: Ketones Ql (U) Negative Normal [facility]; [facility] Work Phone: Leukocyte esterase Test strip Ql (U) Small Normal [facility]; [facility] Work Phone: Nitrite Ql (U) Negative Normal [facility]; [facility] Work Phone: pH (U) 6.0 [pH] Normal [facility]; [facility] Work Phone: Protein Ql (U) Negative Normal [facility]; [facility] Work Phone: Specific gravity (U) [Rel density] 1.020 1 Normal [facility]; [facility] Work Phone: Urobilinogen (24H U) [Mass/Time] Normal Normal [facility]; [facility] Work Phone: CALCIFEDIOL ([id number])Ordered B y: Melter Caster on 10-26-2011 25-hydroxyvitamin D [Mass/Vol] 103.0 ng/mL Abnormal 30.0-100.0 [facility]; [facility] Work Phone: URINE IGOR CULTURE-SAMANTHA COL C OUNT ([id number])Ordered By: Melter Caster on 10-13-2011 Bacteria identified Cx Nom (U) Final report Normal [facility]; [facility] Work Phone: Bacteria identified Cx Nom (U) Escherichia coli Normal [facility]; [facility] Work Phone: Other Antibiotic [Susc] MIHEAD Normal [facility]; [facility] Work Phone: Urinalysis, Office ([phone])Or dered By: Brenda Moyer on 10-12-2011 Bilirubin Ql (U) Negative Normal [facility]; [facility] Work Phone: Glucose Test strip (U) [Mass/Vol] Negative Normal [facility]; [facility] Work Phone: Hemoglobin Ql (U) Hemolyzed Large Normal [facility]; [facility] Work Phone: Ketones Ql (U) Negative Normal [facility]; [facility] Work Phone: Leukocyte esterase Test strip Ql (U) Moderate Normal [facility]; [facility] Work Phone: Nitrite Ql (U) Positive Normal [facility]; [facility] Work Phone: pH (U) 6.0 [pH] Normal [facility]; [facility] Work Phone: Protein Ql (U) Negative Normal [facility]; [facility] Work Phone: Specific gravity (U) [Rel density] 1.015 1 Normal [facility]; [facility] Work Phone: Urobilinogen (24H U) [Mass/Time] Normal Normal [facility]; [facility] Work Phone: Thin prep Pap ([id number])Ordered By: Melter Caster on 07-06-2011 Microscopic observation Other stain Nom (Unsp spec) . Normal [facility]; [facility] Work Phone: Pathology report final diagnosis Narrative SPRCS Normal [facility]; [facility] Work Phone: Thin prep Pap ([id number]) PAPSMR Normal Com prehens[facility]; [facility] Work Phone: HgA1C , Office ([phone])Ordere d By: Catherine Magana on 06-15-2011 HbA1c (Bld) [Mass fraction] 6.1 % Normal 4.6 - 7.1 [facility]; [facility] Work Phone: LIPID PANEL ([id number])Ordered B y: Melter Caster on 06-08-2011 Cholesterol [Mass/Vol] 175 mg/dL Normal 100-199 [facility]; [facility] Work Phone: Cholesterol in HDL [Mass/Vol] 60 mg/dL Normal [facility]; [facility] Work Phone: Cholesterol in LDL [Mass/Vol] 96 mg/dL Normal 0-99 [facility]; [facility] Work Phone: Cholesterol in LDL/Cholesterol in HDL [Mass ratio] 1.6 {ratio_units} Normal 0.0-3.2 [facility]; [facility] Work Phone: Cholesterol in VLDL [Mass/Vol] 19 mg/dL Normal 5-40 [facility]; [facility] Work Phone: Triglyceride [Mass/Vol] 93 mg/dL Normal 0-149 [facility]; [facility] Work Phone: METABOLIC PANEL, COMPREHENSI VE ([id number])Ordered By: Melter Caster on 06-08-2011 Albumin [Mass/Vol] 3.9 g/dL Normal 3.6-4.8 [facility]; [facility] Work Phone: Albumin/Globulin [Mass ratio] 1.9 {ratio} Normal 1.1-2.5 [facility]; [facility] Work Phone: ALP [Catalytic activity/Vol] 72 U/L Normal 25-165 [facility]; [facility] Work Phone: ALT [Catalytic activity/Vol] 18 U/L Normal 0-40 [facility]; [facility] Work Phone: AST [Catalytic activity/Vol] 21 U/L Normal 0-40 [facility]; [facility] Work Phone: Bilirubin [Mass/Vol] 0.6 mg/dL Normal 0.0-1.2 [facility] re[facility]; [facility] Work Phone: Calcium [Mass/Vol] 9.1 mg/dL Normal 8.6-10.2 [facility]; [facility] Work Phone: Chloride [Moles/Vol] 105 mmol/L Normal 97-108 [facility]; [facility] Work Phone: CO2 [Moles/Vol] 25 mmol/L Normal 20-32 Comprehen s[facility]; [facility] Work Phone: Creatinine [Mass/Vol] 0.72 mg/dL Normal 0.57-1.00 [facility] prehensive [facility]; [facility] Work Phone: GFR/1.73 sq M.predicted among blacks MDRD (S/P/Bld) [Vol rate/Area] 99 mL/min/{1.73_m2} Normal [facility]; [facility] Work Phone: GFR/1.73 sq M.predicted among non-blacks CKD-EPI (S/P/Bld) [Vol rate/Area] 86 mL/min/1.73 Normal [facility]; [facility] Work Phone: Globulin (S) [Mass/Vol] 2.1 g/dL Normal 1.5-4.5 [facility]; [facility] Work Phone: Glucose [Mass/Vol] 102 mg/dL Abnormal 65-99 [facility]; [facility] Work Phone: Potassium [Moles/Vol] 4.7 mmol/L Normal 3.5-5.2 [facility]; [facility] Work Phone: Protein [Mass/Vol] 6.0 g/dL Normal 6.0-8.5 [facility]; [facility] Work Phone: Sodium [Moles/Vol] 141 mmol/L Normal 134-144 [facility]; [facility] Work Phone: Urea nitrogen [Mass/Vol] 16 mg/dL Normal 8-27 [facility]; [facility] Work Phone: Urea nitrogen/Creatinine [Mass ratio] 22 mg/mg Normal 11-26 [facility]; [facility] Work Phone: Urinalysis, Office ([phone])Or dered By: Phuc Riding on 03-03-2011 Bilirubin Ql (U) Negative Normal [facility]; [facility] Work Phone: Glucose Test strip (U) [Mass/Vol] Negative Normal [facility]; [facility] Work Phone: Hemoglobin Ql (U) Negative Normal Compreh ensive [facility]; [facility] Work Phone: Ketones Ql (U) Negative Normal [facility]; [facility] Work Phone: Leukocyte esterase Test strip Ql (U) Trace Abnormal [facility]; [facility] Work Phone: Nitrite Ql (U) Negative Normal [facility]; [facility] Work Phone: pH (U) 6.0 [pH] Normal [facility]; [facility] Work Phone: Protein Ql (U) Negative Normal [facility]; [facility] Work Phone: Specific gravity (U) [Rel density] 1.005 1 Normal [facility]; [facility] Work Phone: Urobilinogen (24H U) [Mass/Time] Normal Normal [facility]; [facility] Work Phone: URINE IGOR CULTURE-SAMANTHA COL C OUNT ([id number])Ordered By: Melter Caster on 02-16-2011 Bacteria identified Cx Nom (U) Final report Normal [facility]; [facility] Work Phone: Bacteria identified Cx Nom (U) ECV Normal [facility]; [facility] Work Phone: Urinalysis, Office ([phone])Or dered By: Gail Villanueva on 02-16-2011 Bilirubin Ql (U) Negative Normal Comprehe nsive [facility]; [facility] Work Phone: Glucose Test strip (U) [Mass/Vol] Negative Normal [facility]; [facility] Work Phone: Hemoglobin Ql (U) Hemolyzed Trace Normal [facility]; [facility] Work Phone: Ketones Ql (U) Negative Normal [facility]; [facility] Work Phone: Leukocyte esterase Test strip Ql (U) Small Normal [facility]; [facility] Work Phone: Nitrite Ql (U) Negative Normal [facility]; [facility] Work Phone: pH (U) 5.0 [pH] Normal [facility]; [facility] Work Phone: Protein Ql (U) Negative Normal [facility]; [facility] Work Phone: Specific gravity (U) [Rel density] 1.015 1 Normal [facility]; [facility] Work Phone: Urobilinogen (24H U) [Mass/Time] Normal Normal [facility]; [facility] Work Phone: Blood Glucose , Office ([phone])Ordered By: Irina Waddell on 12-14-2010 Glucose Glucometer (BldC) [Moles/Vol] 97 1 Normal [facility]; [facility] Work Phone: HgA1C , Office ([phone])Ordere d By: Irina Waddell on 12-14-2010 HbA1c (Bld) [Mass fraction] 5.9 % Normal 4.6 - 7.1 [facility]; [facility] Work Phone: LIPID PANEL ([id number])Ordered B y: Melter Caster on 12-07-2010 Cholesterol [Mass/Vol] 219 mg/dL Abnormal 100-199 [facility]; [facility] Work Phone: Cholesterol in HDL [Mass/Vol] 60 mg/dL Normal [facility]; [facility] Work Phone: Cholesterol in LDL [Mass/Vol] 128 mg/dL Abnormal 0-99 [facility]; [facility] Work Phone: Cholesterol in LDL/Cholesterol in HDL [Mass ratio] 2.1 {ratio_units} Normal 0.0-3.2 [facility]; [facility] Work Phone: Cholesterol in VLDL [Mass/Vol] 31 mg/dL Normal 5-40 [facility]; [facility] Work Phone: Triglyceride [Mass/Vol] 156 mg/dL Abnormal 0-149 [facility]; [facility] Work Phone: MICROALBUMINOrdered By: [employer] em [employer] 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 on 12-07-2010 Albumin DL <= 20 mg/L (U) [Mass/Vol] 6.4 ug/mL Normal 0.0-17.0 [facility]; [facility] Work Phone: Albumin/Creatinine (U) [Mass ratio] 4.7 {mg/g_creat} Normal 0.0-30.0 [facility]; [facility] Work Phone: Creatinine (U) [Mass/Vol] 137.1 mg/dL Normal 15.0-278.0 [facility]; [facility] Work Phone: Vitamin D Hydroxy ([phone])Ord ered By: Melter Caster on 12-07-2010 1,25-dihydroxyvitamin D3 [Mass/Vol] 56.7 ng/mL Normal 32.0-100.0 [facility]; [facility] Work Phone: HgA1C , Office ([phone])Ordere d By: Catherine Magana on 08-03-2010 HbA1c (Bld) [Mass fraction] 6.1 % Normal 4.6 - 7.1 [facility]; [facility] Work Phone: CBC WITH MANUAL DIFF ([id number]) Ordered By: Catherine Magana on 01-30-2008 Basophils (Bld) [#/Vol] 0.0 10*3/uL Normal 0.0-0.2 [facility]; [facility] Work Phone: Basophils/100 WBC (Bld) 0 % Normal 0-3 [facility]; [facility] Work Phone: Eosinophils (Bld) [#/Vol] 0.1 10*3/uL Normal 0.0-0.4 [facility]; [facility] Work Phone: Eosinophils/100 WBC (Bld) 2 % Normal 0-7 [facility]; [facility] Work Phone: Erythrocyte distribution width (RBC) [Ratio] 14.6 % Normal 11.7-15.0 [facility]; [facility] Work Phone: Hematocrit (Bld) [Volume fraction] 42.2 % Normal 34.0-44.0 [facility]; [facility] Work Phone: Hemoglobin (Bld) [Mass/Vol] 14.4 g/dL Normal 11.5-15.0 [facility]; [facility] Work Phone: Lymphocytes (Bld) [#/Vol] 1.8 10*3/uL Normal 0.7-4.5 [facility]; [facility] Work Phone: Lymphocytes/100 WBC (Bld) 30 % Normal 14-46 [facility]; [facility] Work Phone: MCH (RBC) [Entitic mass] 30.0 pg Normal 27.0-34.0 [facility]; [facility] Work Phone: MCHC (RBC) [Mass/Vol] 34.0 g/dL Normal 32.0-36.0 [facility]; [facility] Work Phone: MCV (RBC) [Entitic vol] 88 fL Normal 80-98 [facility]; [facility] Work Phone: Monocytes (Bld) [#/Vol] 0.4 10*3/uL Normal 0.1-1.0 [facility]; [facility] Work Phone: Monocytes/100 WBC (Bld) 7 % Normal 4-13 [facility]; [facility] Work Phone: Neutrophils (Bld) [#/Vol] 3.7 10*3/uL Normal 1.8-7.8 [facility]; [facility] Work Phone: Neutrophils/100 WBC (Bld) 61 % Normal 40-74 [facility]; [facility] Work Phone: Platelets (Bld) [#/Vol] 286 10*3/uL Normal 140-415 [facility]; [facility] Work Phone: RBC (Bld) [#/Vol] 4.79 10*6/uL Normal 3.80-5.10 [facility]; [facility] Work Phone: WBC (Bld) [#/Vol] 6.0 10*3/uL Normal 4.0-10.5 [facility]; [facility] Work Phone: LIPID PANEL ([id number])Ordered B y: Catherine on 01-30-2008 Cholesterol [Mass/Vol] 219 mg/dL Abnormal 100-199 [facility]; [facility] Work Phone: Cholesterol in HDL [Mass/Vol] 61 mg/dL Normal [facility]; [facility] Work Phone: Cholesterol in LDL [Mass/Vol] 127 mg/dL Abnormal 0-99 [facility]; [facility] Work Phone: Cholesterol in LDL/Cholesterol in HDL [Mass ratio] SPRCS Normal [facility]; [facility] Work Phone: Cholesterol in LDL/Cholesterol in HDL [Mass ratio] 2.1 {ratio_units} Normal 0.0-3.2 [facility]; [facility] Work Phone: Cholesterol in VLDL [Mass/Vol] 31 mg/dL Normal 5-40 [facility]; [facility] Work Phone: Triglyceride [Mass/Vol] 155 mg/dL Abnormal 0-149 [facility]; [facility] Work Phone: METABOLIC PANEL, COMPREHENSI VE ([id number])Ordered By: Catherine on 01-30-2008 Albumin [Mass/Vol] 4.2 g/dL Normal 3.6-4.8 [facility]; [facility] Work Phone: Albumin/Globulin [Mass ratio] 1.6 {ratio} Normal 1.1-2.5 [facility]; [facility] Work Phone: ALP [Catalytic activity/Vol] 86 U/L Normal 25-165 [facility]; [facility] Work Phone: ALT [Catalytic activity/Vol] 17 U/L Normal 0-40 [facility]; [facility] Work Phone: AST [Catalytic activity/Vol] 18 U/L Normal 0-40 [facility]; [facility] Work Phone: Bilirubin [Mass/Vol] 1.0 mg/dL Normal 0.1-1.2 [facility]; [facility] Work Phone: Calcium [Mass/Vol] 9.6 mg/dL Normal 8.5-10.6 [facility]; [facility] Work Phone: Chloride [Moles/Vol] 104 mmol/L Normal 97-108 [facility]; [facility] Work Phone: CO2 [Moles/Vol] 26 mmol/L Normal 20-32 [facility]; [facility] Work Phone: Creatinine [Mass/Vol] 0.80 mg/dL Normal 0.57-1.00 [facility]; [facility] Work Phone: GFR/1.73 sq M.predicted among blacks MDRD (S/P/Bld) [Vol rate/Area] mL/min/{1.73_m2} Normal [facility]; [facility] Work Phone: GFR/1.73 sq M.predicted MDRD (S/P/Bld) [Vol rate/Area] mL/min/{1.73_m2} Normal [facility]; [facility] Work Phone: Globulin (S) [Mass/Vol] 2.7 g/dL Normal 1.5-4.5 [facility]; [facility] Work Phone: Glucose [Mass/Vol] 109 mg/dL Abnormal 65-99 [facility]; [facility] Work Phone: Potassium [Moles/Vol] 4.4 mmol/L Normal 3.5-5.2 [facility]; [facility] Work Phone: Protein [Mass/Vol] 6.9 g/dL Normal 6.0-8.5 [facility] [place] [facility]; [facility] Work Phone: Sodium [Moles/Vol] 142 mmol/L Normal 135-145 [facility] [place]; [facility] Work Phone: Urea nitrogen [Mass/Vol] 12 mg/dL Normal 5-26 [facility]; [facility] Work Phone: Urea nitrogen/Creatinine [Mass ratio] 15 mg/mg Normal 8-27 [facility]; [facility] Work Phone: MICROALBUMINOrdered By: Rolando Magana on 01-30-2008 Albumin DL <= 20 mg/L (U) [Mass/Vol] 28.1 ug/mL Abnormal 0.0-17.0 [facility]; [facility] Work Phone: TSH ([id number])Ordered By: Catherine Magana on 01-30-2008 TSH Qn 1.780 {uIU/mL} Normal 0.450-4.500 [facility]; [facility] Work Phone: Vital Signs Date Time Vital Sign Value Performing Clinician Facility 06-04-2024 15:30-0400 Body temperature 98.3 [degF] Dr. Catherine Magana DO Work Phone: [facility] 06-04-2024 15:30-0400 Diastolic blood pressure 70 mm[Hg] Dr. Catherine Magana DO Work Phone: [facility] 06-04-2024 15:30-0400 Heart rate 65 /min Dr. Catherine Magana DO Work Phone: [facility] 06-04-2024 15:30-0400 Respiratory rate 16 /min Dr. Catherine Magana DO Work Phone: [facility] 06-04-2024 15:30-0400 SaO2% (BldA) [Mass fraction] 96 % Dr. Catherine Magana DO Work Phone: [facility] 06-04-2024 15:30-0400 Systolic blood pressure 124 mm[Hg] Dr. Catherine Magana DO Work Phone: [facility] 06-04-2024 13:00-0400 Inhaled oxygen flow rate 2 L/min Dr. Catherine Magana DO Work Phone: [facility] 06-04-2024 09:29-0400 Body height 152.[address] Catherine Magana DO Work Phone: [facility] 06-04-2024 09:29-0400 Body mass index (BMI) [Ratio] 33.7 kg/m2 Dr. Catherine Magana DO Work Phone: [facility] 06-04-2024 09:29-0400 Body weight 78.[address] Catherine Magana DO Work Phone: [facility] 05-21-2024 08:50-0500 Body mass index (BMI) [Ratio] 33.7 kg/m2 Dr. Catherine Magana DO Work Phone: [facility] 05-21-2024 08:50-0500 Body temperature 97.6 [degF] Dr. Catherine Magana DO Work Phone: [facility] 05-21-2024 08:50-0500 Body weight 78.[address] Catherine Magana DO Work Phone: [facility] 05-21-2024 08:50-0500 Diastolic blood pressure 69 mm[Hg] Dr. Catherine Magana DO Work Phone: [facility] 05-21-2024 08:50-0500 Heart rate 90 /min Dr. Catherine Magana DO Work Phone: [facility] 05-21-2024 08:50-0500 Respiratory rate 18 /min Dr. Catherine Magana DO Work Phone: [facility] 05-21-2024 08:50-0500 SaO2% (BldA) [Mass fraction] 98 % Dr. Catherine Magana DO Work Phone: [facility] 05-21-2024 08:50-0500 Systolic blood pressure 144 mm[Hg] Dr. Catherine Magana DO Work Phone: [facility] 03-05-2024 13:58-0500 Body mass index (BMI) [Ratio] 33.8 kg/m2 Dr. Catherine Magana DO Work Phone: [facility] 03-05-2024 13:58-0500 Body temperature 97.6 [degF] Dr. Catherine Magana DO Work Phone: [facility] 03-05-2024 13:58-0500 Body weight 78.[address] Alexander Fast DO Work Phone: [facility] 03-05-2024 13:58-0500 Diastolic blood pressure 73 mm[Hg] Dr. Catherine Magana DO Work Phone: [facility] 03-05-2024 13:58-0500 Heart rate 82 /min Dr. Alexander Fast DO Work Phone: [facility] 03-05-2024 13:58-0500 Respiratory rate 18 /min Dr. Catherine Magana DO Work Phone: [facility] 03-05-2024 13:58-0500 SaO2% (BldA) [Mass fraction] 96 % Dr. Catherine Magana DO Work Phone: [facility] 03-05-2024 13:58-0500 Systolic blood pressure 160 mm[Hg] Dr. Catherine Magana DO Work Phone: [facility] 03-31-2023 15:10-0500 Body height 154.94 cm [facility] 10-22-2022 07:15-0400 Body temperature 96.91 [degF] Farzana Larsen [employer] Work Phone: [facility] 10-22-2022 07:15-0400 Body weight 79.38 kg Farzana Larsen [employer] Work Phone: [facility] 10-22-2022 07:15-0400 Diastolic blood pressure 70 mm[Hg] Farzana Larsen [employer] Work Phone: [facility] 10-22-2022 07:15-0400 Heart rate 78 /min Farzana Larsen [employer] Work Phone: [facility] 10-22-2022 07:15-0400 Respiratory rate 16 /min Farzana Larsen [employer] Work Phone: [facility] 10-22-2022 07:15-0400 SaO2% (BldA) [Mass fraction] 96 % Farzanayanely Larsen [employer] Work Phone: [facility] 10-22-2022 07:15-0400 Systolic blood pressure 118 mm[Hg] Farzaan Larsen [employer] Work Phone: [facility] 09-09-2022 06:27-0400 Body height 154.94 cm [facility] 09-09-2022 06:27-0400 Body mass index (BMI) [Ratio] 33.7 kg/m2 [facility] 09-09-2022 06:27-0400 Body temperature 97.9 [degF] [facility] 09-09-2022 06:27-0400 Body weight 81 kg [facility] 09-09-2022 06:27-0400 Diastolic blood pressure 96 mm[Hg] [facility] 09-09-2022 06:27-0400 Heart rate 68 /min [facility] 09-09-2022 06:27-0400 Respiratory rate 18 /min [facility] 09-09-2022 06:27-0400 SaO2% (BldA) [Mass fraction] 96 % [facility] 09-09-2022 06:27-0400 Systolic blood pressure 149 mm[Hg] [facility] 06-18-2022 12:17-0400 Body weight 82.1 kg Virgilio Rojas MD Work Phone: [facility] 06-18-2022 12:17-0400 Diastolic blood pressure 74 mm[Hg] Virgilio Rojas MD Work Phone: [facility] 06-18-2022 12:17-0400 Heart rate 80 /min Virgilio Rojas MD Work Phone: [facility] 06-18-2022 12:17-0400 Respiratory rate 14 /min Virgilio Rojas MD Work Phone: [facility] 06-18-2022 12:17-0400 Systolic blood pressure 122 mm[Hg] Virgilio Rojas MD Work Phone: [facility] 04-19-2022 13:18-0500 Body height 153.7 cm Virgilio Rojas MD Work Phone: [facility] 04-19-2022 13:18-0500 Body weight 81.65 kg Virgilio Rojas MD Work Phone: [facility] 04-19-2022 13:18-0500 Diastolic blood pressure 80 mm[Hg] Virgilio Rojas MD Work Phone: [facility] 04-19-2022 13:18-0500 Heart rate 72 /min Virgilio Rojas MD Work Phone: [facility] 04-19-2022 13:18-0500 Respiratory rate 16 /min Virgilio Rojas MD Work Phone: [facility] 04-19-2022 13:18-0500 Systolic blood pressure 120 mm[Hg] Virgilio Rojas MD Work Phone: [facility] 02-25-2022 16:41-0500 Body temperature 97.7 [degF] [facility] Work Phone: 02-25-2022 16:41-0500 Diastolic blood pressure 67 mm[Hg] [facility] Work Phone: 02-25-2022 16:41-0500 Heart rate 83 /min [facility] Work Phone: 02-25-2022 16:41-0500 Respiratory rate 18 /min [facility] Work Phone: 02-25-2022 16:41-0500 SaO2% (BldA) [Mass fraction] 98 % [facility] Work Phone: 02-25-2022 16:41-0500 Systolic blood pressure 130 mm[Hg] [facility] Work Phone: 02-25-2022 13:19-0500 Body height 154.94 cm [facility] Work Phone: 02-25-2022 13:19-0500 Body mass index (BMI) [Ratio] 33.8 kg/m2 [facility] Work Phone: 02-25-2022 13:19-0500 Body weight 81.19 kg [facility] Work Phone: 09-16-2021 15:04-0400 Body weight 79.38 kg Virgilio Rojas MD Work Phone: [facility] 09-16-2021 15:04-0400 Diastolic blood pressure 72 mm[Hg] Virgilio Rojas MD Work Phone: [facility] 09-16-2021 15:04-0400 Heart rate 76 /min Virgilio Rojsa MD Work Phone: [facility] 09-16-2021 15:04-0400 Respiratory rate 16 /min Virgilio Rojas MD Work Phone: [facility] 09-16-2021 15:04-0400 Systolic blood pressure 120 mm[Hg] Virgilio Rojas MD Work Phone: [facility] 08-27-2021 08:03-0400 Body temperature 96.69 [degF] Marilyn Praisler-Wood [employer] Work Phone: [facility] 08-27-2021 08:03-0400 Body weight 80.56 kg Marilyn Praisler-Wood [employer] Work Phone: [facility] 08-27-2021 08:03-0400 Diastolic blood pressure 64 mm[Hg] Marilyn Praisler-Wood [employer] Work Phone: [facility] 08-27-2021 08:03-0400 Heart rate 56 /min Marilyn Praisler-Wood [employer] Work Phone: [facility] 08-27-2021 08:03-0400 Respiratory rate 21 /min Marilyn Praisler-Wood [employer] Work Phone: [facility] 08-27-2021 08:03-0400 SaO2% (BldA) [Mass fraction] 97 % Marilyn Rubi [employer] Work Phone: [facility] 08-27-2021 08:03-0400 Systolic blood pressure 110 mm[Hg] Marilyn Rubi [employer] Work Phone: [facility] 06-22-2021 07:36-0400 Body temperature 97.7 [degF] Maria Dolores Garcia PA-C Work Phone: [facility] 06-22-2021 07:36-0400 Body weight 83.46 kg Maria Dolores Garcia PA-C Work Phone: [facility] 06-22-2021 07:36-0400 Diastolic blood pressure 60 mm[Hg] Maria Dolores Garcia PA-C Work Phone: [facility] 06-22-2021 07:36-0400 Heart rate 78 /min Maria Dolores Garcia PA-C Work Phone: [facility] 06-22-2021 07:36-0400 Respiratory rate 16 /min Maria Dolores Garcia PA-C Work Phone: [facility] 06-22-2021 07:36-0400 Systolic blood pressure 110 mm[Hg] Maria Dolores Garcia PA-C Work Phone: [facility] 06-14-2021 19:43-0400 Diastolic blood pressure 88 mm[Hg] [facility] Work Phone: 06-14-2021 19:43-0400 Heart rate 102 /min [facility] Work Phone: 06-14-2021 19:43-0400 Respiratory rate 16 /min [facility] Work Phone: 06-14-2021 19:43-0400 SaO2% (BldA) [Mass fraction] 98 % [facility] Work Phone: 06-14-2021 19:43-0400 Systolic blood pressure 118 mm[Hg] [facility] Work Phone: 06-14-2021 14:44-0400 Body height 152.4 cm [facility] Work Phone: 06-14-2021 14:44-0400 Body mass index (BMI) [Ratio] 37.3 kg/m2 [facility] Work Phone: 06-14-2021 14:44-0400 Body temperature 97.6 [degF] [facility] Work Phone: 06-14-2021 14:44-0400 Body weight 86.7 kg [facility] Work Phone: 02-09-2017 14:43-0500 BMI (Body Mass Index) 30.74 kg/m2 Roberto LOPEZ [facility] Work Phone: 02-09-2017 14:43-0500 Body Temperature 98.1 [degF] Roberto LOPEZ [facility] Work Phone: 02-09-2017 14:43-0500 BP Diastolic 76 mm[Hg] Roberto LOPEZ [facility] Work Phone: 02-09-2017 14:43-0500 BP Systolic 124 mm[Hg] Roberto LOPEZ [facility] Work Phone: 02-09-2017 14:43-0500 Height 156.21 cm Roberto LOPEZ [facility] Work Phone: 02-09-2017 14:43-0500 Pulse (Heart Rate) 60 /min Roberto [facility] Work Phone: 02-09-2017 14:43-0500 Respiratory Rate 15 /min Roberto LOPEZ [facility] Work Phone: 02-09-2017 14:43-0500 Weight 75.03 kg Roberto LOPEZ [facility] Work Phone: 08-04-2016 10:48-0400 BMI (Body Mass Index) 29.74 kg/m2 [facility] Work Phone: 08-04-2016 10:48-0400 Body Temperature 97.1 [degF] Rekha Vargas [facility] [place] Work Phone: 08-04-2016 10:48-0400 BP Diastolic 68 mm[Hg] Rekha Sam [facility] [place] Work Phone: 08-04-2016 10:48-0400 BP Systolic 103 mm[Hg] Rekha Vargas [facility] [place] Work Phone: 08-04-2016 10:48-0400 Height 156.21 cm Rekha Vargas [facility] [place] Work Phone: 08-04-2016 10:48-0400 Pulse (Heart Rate) 59 /min Rekha Vargas [facility] [place] Work Phone: 08-04-2016 10:48-0400 Pulse Oximetry 98 % Rekha Vargas [facility] [place] Work Phone: 08-04-2016 10:48-0400 Respiratory Rate 18 /min Rekha Vargas [facility] [place] Work Phone: 08-04-2016 10:48-0400 Weight 72.58 kg Rekha Vargas [facility] [place] Work Phone: 04-13-2016 11:08-0500 Body height 152.4 cm [facility] Work Phone: 04-13-2016 11:08-0500 Body mass index (BMI) [Ratio] 30.47 kg/m2 [facility]; [facility] Work Phone: 04-13-2016 11:08-0500 Body surface area Derived from formula 1.68 m2 Gail Villanueva RN [facility]; [facility] Work Phone: 04-13-2016 11:08-0500 Body temperature 98.4 [degF] Gial [facility]; [facility] Work [...] 12-25-2015 10:40-0400 Respiratory rate 16 /min Gail Vilalnueva RN [facility]; [facility] [...] 12-10-2015 09:17-0400 Body height 152.4 cm Laurence Slarb [employer] [facility]; [facility] Work Phone: 12-10-2015 09:17-0400 Body mass index (BMI) [Ratio] 31.47 kg/m2 Laurence Slarb [employer] [facility]; [facility] Work Phone: 12-10-2015 09:17-0400 Body surface area Derived from formula 1.7 m2 Laurence Slarb [employer] [facility]; [facility] Work Phone: 12-10-2015 09:17-0400 Body temperature 97.7 [degF] Laurence Slarb [employer] [facility]; [facility] Work Phone: 12-10-2015 09:17-0400 Body weight 73.09 kg Laurence Slarb [employer] [facility]; [facility] Work Phone: 12-10-2015 09:17-0400 Diastolic blood pressure 78 mm[Hg] Laurence Slarb [employer] [facility]; [facility] Work Phone: 12-10-2015 09:17-0400 Heart rate 56 /min Laurence Slarb [employer] [facility]; [facility] Work Phone: 12-10-2015 09:17-0400 Respiratory rate 16 /min Laurence Slarb [employer] [facility]; [facility] Work Phone: 12-10-2015 09:17-0400 SaO2% (BldA) [Mass fraction] 97 % Laurence Slarb [employer] [facility]; [facility] Work Phone: 12-10-2015 09:17-0400 Systolic blood pressure 118 mm[Hg] Laurence Slarb [employer] [facility]; [facility] Work [...] 10:30-0400 Body height 152.4 cm Laurence Slarb [employer] [facility]; [facility] Work Phone: 11-12-2015 10:30-0400 Body mass index (BMI) [Ratio] 31.47 kg/m2 Laurence Slarb [employer] [facility]; [facility] Work Phone: 11-12-2015 10:30-0400 Body surface area Derived from formula 1.7 m2 Laurence Slarb [employer] [facility]; [facility] Work Phone: 11-12-2015 10:30-0400 Body temperature 97.4 [degF] Laurence Slarb [employer] [facility]; [facility] Work Phone: 11-12-2015 10:30-0400 Body weight 73.09 kg Laurence Slarb [employer] [facility]; [facility] Work Phone: 11-12-2015 10:30-0400 Diastolic blood pressure 74 mm[Hg] Laurence Slarb [employer] [facility]; [facility] Work Phone: 11-12-2015 10:30-0400 Heart rate 51 /min Laurence Slarb [employer] [facility]; [facility] Work Phone: 11-12-2015 10:30-0400 Respiratory rate 17 /min Laurence Slarb [employer] [facility]; [facility] Work Phone: 11-12-2015 10:30-0400 SaO2% (BldA) [Mass fraction] 97 % Laurence Slarb [employer] [facility]; [facility] Work Phone: 11-12-2015 10:30-0400 Systolic blood pressure 106 mm[Hg] Laurence Slarb [employer] [facility]; [facility] Work Phone: 08-07-2015 09:46-0400 Body Temperature 96.08 [degF] Rekha Vargas [facility] [place] Work Phone: 08-07-2015 09:46-0400 Weight 72.55 kg [...] 06-11-2015 10:19-0400 Body temperature 98.3 [degF] Irina Waddell [facility]; [facility] Work Phone: 06-11-2015 10:19-0400 Body weight 72.12 kg Irina [facility]; [facility] Work Phone: 06-11-2015 10:19-0400 Diastolic blood pressure 68 mm[Hg] Irina Waddell [facility]; [facility] Work Phone: 06-11-2015 10:19-0400 Heart rate 57 /min Irina Waddell [facility]; [facility] Work Phone: 06-11-2015 10:19-0400 Respiratory rate 15 /min Irina Waddell [facility]; [facility] Work Phone: 06-11-2015 10:19-0400 SaO2% (BldA) [Mass fraction] 98 % Irina Waddell [facility]; [facility] Work Phone: 06-11-2015 10:19-0400 Systolic blood pressure 98 mm[Hg] Irina Waddell [facility]; [facility] Work Phone: 06-03-2015 09:43-0500 Body height 152.4 cm Laurence Najera LPN [facility]; [facility] Work Phone: 06-03-2015 09:43-0500 Body mass index (BMI) [Ratio] 32.03 kg/m2 Laurence Slarb [employer] [facility]; [facility] Work Phone: 06-03-2015 09:43-0500 Body surface area Derived from formula 1.72 m2 Laurence Slarb [employer] [facility]; [facility] Work Phone: 06-03-2015 09:43-0500 Body temperature 97.2 [degF] Laurence Slarb [employer] [facility]; [facility] Work Phone: 06-03-2015 09:43-0500 Body weight 74.39 kg Laurence Slarb [employer] [facility]; [facility] Work Phone: 06-03-2015 09:43-0500 Diastolic blood pressure 72 mm[Hg] Laurence Slarb [employer] [facility]; [facility] Work Phone: 06-03-2015 09:43-0500 Heart rate 62 /min Laurence Slarb [employer] [facility]; [facility] Work Phone: 06-03-2015 09:43-0500 Respiratory rate 16 /min Laurence Slarb [employer] [facility]; [facility] Work Phone: 06-03-2015 09:43-0500 SaO2% (BldA) [Mass fraction] 95 % Laurence Slarb [employer] [facility]; [facility] Work Phone: 06-03-2015 09:43-0500 Systolic blood pressure 108 mm[Hg] Laurence Slarb [employer] [facility]; [facility] Work Phone: 12-11-2014 09:36-0400 Body height 152.4 cm Irina Waddell [facility]; [facility] Work Phone: 12-11-2014 09:36-0400 Body mass index (BMI) [Ratio] 32.03 kg/m2 Irina Waddell [facility]; [facility] Work Phone: 12-11-2014 09:36-0400 Body surface area Derived from formula 1.72 m2 [facility]ina [facility] Work Phone: 12-11-2014 09:36-0400 Body temperature 98.2 [degF] Irina Bairon [facility] Work Phone: 12-11-2014 09:36-0400 Body weight 74.39 kg Irina Bairon [facility]; [facility] Work Phone: 12-11-2014 09:36-0400 Diastolic blood pressure 74 mm[Hg] Irina Waddell [facility]; [facility] Work Phone: 12-11-2014 09:36-0400 Heart rate 56 /min Irina Waddell [facility]; [facility] Work Phone: 12-11-2014 09:36-0400 Respiratory rate 16 /min Irina Waddell [facility]; [facility] Work Phone: 12-11-2014 09:36-0400 SaO2% (BldA) [Mass fraction] 96 % Irina Bairon [facility]; [facility] Work Phone: 12-11-2014 09:36-0400 Systolic blood pressure 116 mm[Hg] Irina Bairon [facility]; [facility] Work Phone: 10-14-2014 15:35-0400 Body height 152.4 cm Catherine A Fast DO Work Phone: [facility]; [facility] Work Phone: 10-14-2014 15:35-0400 Body mass index (BMI) [Ratio] 33.86 kg/m2 Catherine A Fast DO Work Phone: [facility] [...] 09-11-2014 09:38-0400 Body height 152.4 cm Irina [facility]; [facility] Work Phone: 09-11-2014 09:38-0400 Body mass index (BMI) [Ratio] 36.33 kg/m2 Irina [facility]; [facility] Work Phone: 09-11-2014 09:38-0400 Body surface area Derived from formula 1.81 m2 Irina [facility]; [facility] Work Phone: 09-11-2014 09:38-0400 Body temperature 98.7 [degF] Irina Bairon [facility]; [facility] Work Phone: 09-11-2014 09:38-0400 Body weight 84.37 kg Irina Bairon [facility]; [facility] Work Phone: 09-11-2014 09:38-0400 Diastolic blood pressure 84 mm[Hg] Irina Waddell [facility]; [facility] Work Phone: 09-11-2014 09:38-0400 Heart rate 62 /min Irina Waddell [facility]; [facility] Work Phone: 09-11-2014 09:38-0400 Respiratory rate 16 /min Irina Waddell [facility]; [facility] Work Phone: 09-11-2014 09:38-0400 Systolic blood pressure 126 mm[Hg] Irina Waddell [facility]; [facility] Work Phone: 04-01-2014 15:42-0500 Body height 152.4 cm Irina Bairon [facility]; [facility] Work Phone: 04-01-2014 15:42-0500 Body mass index (BMI) [Ratio] 37.69 kg/m2 Irina Bairon [facility]; [facility] Work Phone: 04-01-2014 15:42-0500 Body surface area Derived from formula 1.84 m2 Irina Waddell [facility]; [facility] Work Phone: 04-01-2014 15:42-0500 Body temperature 97 [degF] Irina Waddell [facility]; [facility] Work Phone: 04-01-2014 15:42-0500 Body weight 87.54 kg Irina Waddell [facility]; [facility] Work Phone: 04-01-2014 15:42-0500 Diastolic blood pressure 76 mm[Hg] Irina Waddell [facility]; [facility] Work Phone: 04-01-2014 15:42-0500 Heart rate 68 /min Irina [facility]; [facility] Work Phone: 04-01-2014 15:42-0500 Respiratory rate 16 /min Irina Waddell [facility]; [facility] Work Phone: 04-01-2014 15:42-0500 Systolic blood pressure 100 mm[Hg] Irina Zavala [...] 09:30-0500 Body weight 87.54 kg Irina Waddell [facility]; [facility] Work [...] 08:57-0500 Body height 152.4 cm Irina Waddell [facility]; [facility] Work Phone: 02-25-2014 08:57-0500 Body mass index (BMI) [Ratio] 37.69 kg/m2 Irina Waddell [facility]; [facility] Work Phone: 02-25-2014 08:57-0500 Body surface area Derived from formula 1.84 m2 Irina Waddell [facility]; [facility] Work Phone: 02-25-2014 08:57-0500 Body temperature 97.4 [degF] Irina Waddell [facility]; [facility] Work Phone: 02-25-2014 08:57-0500 Body weight 87.54 kg Irina Waddell [facility]; [facility] Work Phone: 02-25-2014 08:57-0500 Diastolic blood pressure 70 mm[Hg] Irina Waddell [facility]; [facility] Work Phone: 02-25-2014 08:57-0500 Heart rate 76 /min Irina Waddell [facility]; [facility] Work Phone: 02-25-2014 08:57-0500 Respiratory rate 16 /min Irina Waddell [facility]; [facility] Work Phone: 02-25-2014 08:57-0500 Systolic blood pressure 122 mm[Hg] Irina Waddell [facility]; [facility] Work Phone: 09-21-2013 10:32-0400 [facility] Work Phone: 09-21-2013 10:32-0400 Body mass index (BMI) [Ratio] 37.3 kg/m2 Tabitha [facility]; [facility] Work Phone: 09-21-2013 10:32-0400 Body surface area Derived from formula 1.83 m2 Tabitha Bianchi [facility]; [facility] Work Phone: 09-21-2013 10:32-0400 Body weight 86.64 kg Tabitha Bianchi [facility]; [facility] Work Phone: 09-21-2013 10:32-0400 Diastolic blood pressure 82 mm[Hg] [facility]; [facility] Work Phone: 09-21-2013 10:32-0400 Heart rate 64 /min [facility]; [facility] Work Phone: 09-21-2013 10:32-0400 Respiratory rate 16 /min [facility]; [facility] Work Phone: 09-21-2013 10:32-0400 SaO2% (BldA) [Mass fraction] 96 % [facility]; [facility] Work Phone: 09-21-2013 10:32-0400 Systolic blood pressure 115 mm[Hg] [facility]; [facility] Work Phone: 09-10-2013 11:18-0400 Body height 152.4 cm [facility]; [facility] Work Phone: 09-10-2013 11:18-0400 Body mass index (BMI) [Ratio] 37.5 kg/m2 [facility]; [facility] Work Phone: 09-10-2013 11:18-0400 Body surface area Derived from formula 1.83 m2 [facility]; [facility] Work Phone: 09-10-2013 11:18-0400 Body temperature 98.4 [degF] [facility]; [facility] Work Phone: 09-10-2013 11:18-0400 Body weight 87.09 kg Tabitha Bianchi [facility]; [facility] Work Phone: 09-10-2013 11:18-0400 Diastolic blood pressure 72 mm[Hg] Tabitha Bianchi [facility]; [facility] Work Phone: 09-10-2013 11:18-0400 Heart rate 56 /min Tabitha Bianchi [facility]; [facility] Work Phone: 09-10-2013 11:18-0400 Respiratory rate 16 /min Tabitha Bianchi [facility]; [facility] Work Phone: 09-10-2013 11:18-0400 SaO2% (BldA) [Mass fraction] 98 % Tabitha Bianchi [facility]; [facility] Work Phone: 09-10-2013 11:18-0400 Systolic blood pressure 118 mm[Hg] Tabitha Bianchi [facility]; [facility] Work Phone: 09-05-2013 15:11-0400 Body height 152.4 cm Vicki Hinson [facility]; [facility] Work Phone: 09-05-2013 15:11-0400 Body mass index (BMI) [Ratio] 37.5 kg/m2 Vickilucas Hinson [facility]; [facility] Work Phone: 09-05-2013 15:11-0400 Body surface area Derived from formula 1.83 m2 Vickilucas Hinson [facility]; [facility] Work Phone: 09-05-2013 15:11-0400 Body temperature 96.4 [degF] Vickilucas Hinson [facility]; [facility] Work Phone: 09-05-2013 15:11-0400 Body weight 87.09 kg Vickilucas Hinson [facility]; [facility] Work Phone: 09-05-2013 15:11-0400 Diastolic blood pressure 72 mm[Hg] Vickilucas Hinson [facility]; [facility] Work Phone: 09-05-2013 15:11-0400 Heart rate 56 /min Vicki Hinson [facility]; [facility] Work Phone: 09-05-2013 15:11-0400 Respiratory rate 18 /min Vicki Hinson [facility]; [facility] Work Phone: 09-05-2013 15:11-0400 SaO2% (BldA) [Mass fraction] 96 % Vicki Hinson [facility]; [facility] Work Phone: 09-05-2013 15:11-0400 Systolic blood pressure 124 mm[Hg] Vicki Hinson [facility]; [facility] [...] Respiratory rate 20 /min Kirsten Pearson RN Comprehensiv e Internal Medicine; [...] Internal Medicine Work Phone: 07-04-2013 14:11-0400 Body height 152.4 cm Irina Zavala [facility]; [facility] Work Phone: 07-04-2013 [id number] Body mass index (BMI) [Ratio] 37.69 kg/m2 Irina Bairon [facility]; [facility] Work Phone: 07-04-2013 [id number] Body surface area Derived from formula 1.84 m2 Irina Waddell [facility]; [facility] Work Phone: 07-04-2013 14:11-0400 Body temperature 96.6 [degF] Irina Bairon [facility]; [facility] Work Phone: 07-04-2013 [id number] Body weight 87.54 kg Irina Bairon [facility]; [facility] Work Phone: 07-04-2013 14:11-0400 Diastolic blood pressure 72 mm[Hg] Irina Waddell [facility]; [facility] Work Phone: 07-04-2013 14:11-0400 Heart rate 60 /min Irina Waddell [facility]; [facility] Work Phone: 07-04-2013 14:11-0400 Respiratory rate 18 /min Irina Bairon [facility]; [facility] Work Phone: 07-04-2013 14:11-0400 Systolic blood pressure 110 mm[Hg] Irina Zavala [facility]; [facility] Work Phone: 06-01-2013 12:18-0500 Body height 152.4 cm Irina Waddell [facility]; [facility] Work Phone: 06-01-2013 12:18-0500 Body mass index (BMI) [Ratio] 37.69 kg/m2 Irina Waddell [facility]; [facility] Work Phone: 06-01-2013 12:18-0500 Body surface area Derived from formula 1.84 m2 Irina Waddell [facility]; [facility] Work Phone: 06-01-2013 12:18-0500 Body temperature 97.2 [degF] Irina Waddell [facility]; [facility] Work Phone: 06-01-2013 12:18-0500 Body weight 87.54 kg Irina Bairon [facility]; [facility] [...] 01-01-2013 14:57-0400 Body height 152.4 cm Irina Waddell [facility]; [facility] Work Phone: 01-01-2013 14:57-0400 Body mass index (BMI) [Ratio] 37.69 kg/m2 Irina Waddell [facility]; [facility] Work Phone: 01-01-2013 14:57-0400 Body surface area Derived from formula 1.84 m2 Irian Waddell [facility]; [facility] Work Phone: 01-01-2013 14:57-0400 Body temperature 97.9 [degF] Irina Waddell [facility]; [facility] Work Phone: 01-01-2013 14:57-0400 Body weight 87.54 kg Irina Waddell [facility]; [facility] Work Phone: 01-01-2013 14:57-0400 Diastolic blood pressure 74 mm[Hg] Irina Waddell [facility]; [facility] Work Phone: 01-01-2013 14:57-0400 Heart rate 60 /min Irina Waddell [facility]; [facility] Work Phone: 01-01-2013 14:57-0400 Respiratory rate 18 /min Irina Waddell [facility]; [facility] Work Phone: 01-01-2013 14:57-0400 Systolic blood pressure 118 mm[Hg] Irina Waddell [facility]; [facility] Work Phone: 07-12-2012 09:46-0400 Body height 152.4 cm Irina Waddell [facility]; [facility] Work Phone: 07-12-2012 09:46-0400 Body mass index (BMI) [Ratio] 36.72 kg/m2 Irina Waddell [facility]; [facility] Work Phone: 07-12-2012 09:46-0400 Body surface area Derived from formula 1.82 m2 Irina Waddell [facility]; [facility] Work Phone: 07-12-2012 09:46-0400 Body temperature 97.2 [degF] Irina Zavala [facility]; [facility] Work Phone: 07-12-2012 09:46-0400 Body weight 85.28 kg Irina Zavala [facility]; [facility] Work Phone: 07-12-2012 09:46-0400 Diastolic blood pressure 64 mm[Hg] Irina Waddell [facility]; [facility] Work Phone: 07-12-2012 09:46-0400 Heart rate 56 /min Irina Waddell [facility]; [facility] Work Phone: 07-12-2012 09:46-0400 Respiratory rate 16 /min Irina Waddell [facility]; [facility] Work Phone: 07-12-2012 09:46-0400 Systolic blood pressure 100 mm[Hg] Irina Waddell [facility]; [facility] Work [...] 10-26-2011 08:24-0400 Body height 154.94 cm Enriqueta Gibson LPN [facility]; [facility] Work Phone: 10-26-2011 08:24-0400 Body mass index (BMI) [Ratio] 35.33 kg/m2 Enriqueta Arthur DIETZ [facility]; [facility] Work Phone: 10-26-2011 08:24-0400 Body surface area Derived from formula 1.84 m2 Enriqueta Arthur DIETZ [facility]; [facility] Work Phone: 10-26-2011 08:24-0400 Body temperature 97.8 [degF] Enriqueta Gibson J LUIS Comprehensiv e [...] 10-26-2011 08:24-0400 Respiratory rate 16 /min Enriqueta Gibson J [...] 10:47-0400 Body weight 84.82 kg Enriqueta Gibson J LUIS [facility] [...] Systolic blood pressure 134 mm[Hg] Enriqueta Gibson J LUIS [facility]; [facility] Work Phone: 10-12-2011 15:16-0400 Body height 154.94 cm Enriqueta Gibson J LUIS [facility]; [facility] Work Phone: 10-12-2011 15:16-0400 Body mass index (BMI) [Ratio] 35.33 kg/m2 Enriqueta Boycemaurilio DIETZ [facility]; [facility] Work Phone: 10-12-2011 15:16-0400 Body surface area Derived from formula 1.84 m2 Enriqueta Gibson J LUIS [facility]; [facility] Work Phone: 10-12-2011 15:16-0400 Body temperature 98 [degF] Enriqueta Gibson J LUIS Comprehens[facility]; [facility] Work Phone: 10-12-2011 15:16-0400 Body weight 84.82 kg Enriqueta Gibson J LUIS [facility] [...] 08-24-2011 08:08-0400 Respiratory rate 16 /min Enriqueta Arthur DIETZ [facility]; [facility] Work Phone: 08-24-2011 08:08-0400 Systolic blood pressure 118 mm[Hg] Enriqueta Gibson LPN [facility]; [facility] Work Phone: 07-06-2011 09:38-0400 Body height 154.94 cm Irina Waddell [facility]; [facility] Work Phone: 07-06-2011 09:38-0400 Body temperature 96.3 [degF] Irina Waddell [facility]; [facility] Work Phone: 07-06-2011 09:38-0400 Diastolic blood pressure 78 mm[Hg] Irina Waddell [facility]; [facility] Work Phone: 07-06-2011 09:38-0400 Heart rate 56 /min Irina Waddell [facility]; [facility] Work Phone: 07-06-2011 09:38-0400 Respiratory rate 16 /min Irina Waddell [facility] [...] 07-05-2011 09:08-0400 Respiratory rate 15 /min Enriqueta Gibson LPN Comprehensiv e Internal [...] 10:08-0500 Body height 154.94 cm Irina Waddell [facility]; [facility] Work Phone: 04-14-2011 10:08-0500 Body mass index (BMI) [Ratio] 34.96 kg/m2 Irina Waddell [facility]; [facility] Work Phone: 04-14-2011 10:08-0500 Body surface area Derived from formula 1.83 m2 Irina Waddell [facility]; [facility] Work Phone: 04-14-2011 10:08-0500 Body temperature 97.9 [degF] Irina Waddell [facility]; [facility] Work Phone: 04-14-2011 10:08-0500 Body weight 83.92 kg Irina Waddell [facility]; [facility] Work Phone: 04-14-2011 10:08-0500 Diastolic blood pressure 82 mm[Hg] Irina Waddell [facility]; [facility] Work Phone: 04-14-2011 10:08-0500 Heart rate 64 /min Irina Waddell [facility]; [facility] Work Phone: 04-14-2011 10:08-0500 Respiratory rate 16 /min Irina Waddell [facility]; [facility] Work Phone: 04-14-2011 10:08-0500 Systolic blood pressure 118 mm[Hg] Irina Waddell [facility]; [facility] Work Phone: 03-31-2011 09:54-0500 Body height 154.94 cm Irina Waddell [facility]; [facility] Work Phone: 03-31-2011 09:54-0500 Body mass index (BMI) [Ratio] 34.96 kg/m2 Irina Waddell [facility]; [facility] Work Phone: 03-31-2011 09:54-0500 Body surface area Derived from formula 1.83 m2 Irina Waddell [facility]; [facility] Work [...] 03-31-2011 09:54-0500 Heart rate 60 /min Irina Bairon [facility]; [facility] Work Phone: 03-31-2011 09:54-0500 Respiratory rate 16 /min Irina Bairon [facility] [...] mass index (BMI) [Ratio] 34.01 kg/m2 Enriqueta Gibson LPN [facility]; [facility] Work Phone: 02-16-2011 15:38-0500 Body surface area Derived from formula 1.81 m2 Enriqueta Gibson LPN [facility]; [facility] Work Phone: 02-16-2011 15:38-0500 Body temperature 97.3 [degF] Enriqueta Gibson LPN Comprehensiv e Internal [...] 08:20-0400 Body temperature 98 [degF] GERMAN Mao J LUIS Comprehensiv e [facility]; [facility] Work Phone: 01-07-2011 08:20-0400 Body weight 81.65 kg GERMAN Mayco DIETZ [facility]; [facility] Work Phone: 01-07-2011 08:20-0400 Diastolic blood pressure 78 mm[Hg] GERMAN Mao LPN [facility]; [facility] Work Phone: 01-07-2011 08:20-0400 Heart rate 84 /min GERMANDELPHINE Mao LPN [facility]; [facility] Work Phone: 01-07-2011 08:20-0400 Respiratory rate 20 /min GERMANDELPHINE Mao J LUIS Com[facility]; [facility] Work Phone: 01-07-2011 08:20-0400 SaO2% (BldA) [Mass fraction] 95 % GERMAN Mao J LUIS [facility]; [facility] Work Phone: 01-07-2011 08:20-0400 Systolic blood pressure 120 mm[Hg] GERMAN Mao J LUIS [facility]; [facility] Work Phone: 12-14-2010 08:46-0400 Body height 154.94 cm Irina Zavala [facility]; [facility] Work Phone: 12-14-2010 08:46-0400 Body mass index (BMI) [Ratio] 34.01 kg/m2 Irina Zavala [facility]; [facility] Work Phone: 12-14-2010 08:46-0400 Body surface area Derived from formula 1.81 m2 Irina Zavala [facility]; [facility] Work Phone: 12-14-2010 08:46-0400 Body temperature 97.2 [degF] Irina Zavala [facility]; [facility] Work Phone: 12-14-2010 08:46-0400 Body weight 81.65 kg Irina Zavala [facility]; [facility] Work Phone: 12-14-2010 08:46-0400 Diastolic blood pressure 76 mm[Hg] Irina Waddell [facility]; [facility] Work Phone: 12-14-2010 08:46-0400 Heart rate 68 /min Irina Waddell [facility]; [facility] Work Phone: 12-14-2010 08:46-0400 Respiratory rate 16 /min Irina Waddell [facility]; [facility] Work Phone: 12-14-2010 08:46-0400 Systolic blood pressure 122 mm[Hg] Irina Waddell [facility]; [facility] Work Phone: 08-03-2010 10:15-0400 Body height 154.94 cm Irina Waddell [facility]; [facility] Work Phone: 08-03-2010 10:15-0400 Body mass index (BMI) [Ratio] 35.71 kg/m2 Irina Waddell [facility]; [facility] Work Phone: 08-03-2010 10:15-0400 Body surface area Derived from formula 1.84 m2 Irina Waddell [facility]; [facility] Work Phone: 08-03-2010 10:15-0400 Body temperature 97.2 [degF] Irina Waddell [facility]; [facility] Work Phone: 08-03-2010 10:15-0400 Body weight 85.73 kg Irina Waddell [facility] [...] 03-23-2010 08:21-0500 Heart rate 70 /min Enriqueta Gibson LPN [facility]; [facility] Work Phone: 03-23-2010 08:21-0500 Respiratory rate 16 /min Enriqueta Arthur J LUIS Comprehensiv e [facility]; [facility] Work Phone: 03-23-2010 08:21-0500 SaO2% (BldA) [Mass fraction] 96 % Enriqueta Arthur DIETZ [facility]; [facility] Work Phone: 03-23-2010 08:21-0500 Systolic blood pressure 118 mm[Hg] Enriqueta Arthur J LUIS [facility]; [facility] Work Phone: 10-07-2009 08:29-0400 Body temperature 97.3 [degF] Irina Waddell [facility]; [facility] [...] 08:29-0400 Systolic blood pressure 124 mm[Hg] Irina Waddell [facility]; [facility] Work Phone: 06-17-2009 12:12-0400 Body temperature 98.3 [degF] Angelica Barone RN [facility]; [facility] Work Phone: 06-17-2009 12:12-0400 Body weight 83.92 kg Angelica Zavala [facility]; [facility] Work [...] 03-18-2009 10:03-0500 Body temperature 97.9 [degF] Irina Waddell [facility]; [facility] Work Phone: 03-18-2009 10:03-0500 Body weight 83.46 kg Irina Osorioaura [facility]; [facility] Work Phone: 03-18-2009 10:03-0500 Diastolic blood pressure 62 mm[Hg] Irina Bairon [facility]; [facility] Work Phone: 03-18-2009 10:03-0500 Head Occipital-frontal circumference 0 cm Irina Bairon [facility]; [facility] Work Phone: 03-18-2009 10:03-0500 Heart rate 80 /min Irina Bairon [facility]; [facility] Work Phone: 03-18-2009 10:03-0500 Respiratory rate 18 /min Irina Bairon [facility]; [facility] Work Phone: 03-18-2009 10:03-0500 Systolic blood pressure 96 mm[Hg] Irina Bairon [facility]; [facility] Work Phone: 12-30-2008 14:06-0400 Body height 0 cm Sue Dallas [facility]; [facility] Work Phone: 12-30-2008 14:06-0400 Body temperature 97.1 [degF] Sue Dallas [facility]; [facility] Work Phone: 12-30-2008 14:06-0400 Body weight 81.76 kg Sue [facility]; [facility] Work Phone: 12-30-2008 14:06-0400 Diastolic blood pressure 72 mm[Hg] Sue [facility]; [facility] Work Phone: 12-30-2008 14:06-0400 Head Occipital-frontal circumference 0 cm Sue [facility]; [facility] Work Phone: 12-30-2008 14:06-0400 Heart rate 60 /min Sue [facility]; [facility] Work Phone: 12-30-2008 14:06-0400 Respiratory rate 18 /min Sue [facility]; [facility] Work [...] Derived from formula 1.85 m2 Irina Waddell [facility]; [facility] Work Phone: 08-20-2008 10:43-0400 Body temperature 97 [degF] Irina Bairon [facility]; [facility] Work Phone: 08-20-2008 10:43-0400 Body weight 84.37 kg Irina Osorioaura [facility]; [facility] Work Phone: 08-20-2008 10:43-0400 Diastolic blood pressure 80 mm[Hg] Irina Waddell [facility]; [facility] Work Phone: 08-20-2008 10:43-0400 Head Occipital-frontal circumference 0 cm Irina Waddell [facility]; [facility] Work Phone: 08-20-2008 10:43-0400 Heart rate 64 /min Irina Waddell [facility]; [facility] Work Phone: 08-20-2008 10:43-0400 Respiratory rate 16 /min Irina Waddell [facility]; [facility] Work Phone: 08-20-2008 10:43-0400 Systolic blood pressure 116 mm[Hg] Irina Bairon [facility]; [facility] Work Phone: 07-31-2008 10:13-0400 Body height 0 cm Irina Bairon [facility]; [facility] Work Phone: 07-31-2008 10:13-0400 Body temperature 98.2 [degF] Irina Waddell [facility]; [facility] Work Phone: 07-31-2008 10:13-0400 Body weight 84.37 kg Irina Bairon [facility]; [facility] Work Phone: 07-31-2008 10:13-0400 Diastolic blood pressure 80 mm[Hg] Irina Waddell [facility]; [facility] Work Phone: 07-31-2008 10:13-0400 Head Occipital-frontal circumference 0 cm Irina Waddell [facility]; [facility] Work [...] 05-09-2008 08:19-0500 Body weight 86.64 kg Irina Bairon [facility]; [facility] [...] Phone: 02-19-2008 10:35-0500 Body temperature 96.4 [degF] Iirna Waddell [facility]; [facility] [...] 11:23-0500 Body height 0 cm Irina Waddell [facility]; [facility] Work Phone: 01-29-2008 11:23-0500 Body temperature 97.9 [degF] Irina Bairon [facility]; [facility] Work Phone: 01-29-2008 11:23-0500 Body weight 85.73 kg Irina Bairon [facility]; [facility] Work Phone: 01-29-2008 11:23-0500 Diastolic blood pressure 78 mm[Hg] Irina Waddell [facility]; [facility] Work Phone: 01-29-2008 11:23-0500 Head Occipital-frontal circumference 0 cm Irina Bairon [facility]; [facility] Work Phone: 01-29-2008 11:23-0500 Heart rate 72 /min Irina Waddell [facility]; [facility] Work Phone: 01-29-2008 11:23-0500 Respiratory rate 16 /min Irina Waddell [facility]; [facility] Work Phone: 01-29-2008 11:23-0500 Systolic blood pressure 120 mm[Hg] Irina Bairon [facility]; [facility] Work Phone: 05-30-2007 10:19-0500 Body height 0 cm Irina Bairon [facility]; [facility] Work Phone: 05-30-2007 10:19-0500 Body temperature 98.4 [degF] Irina Waddell [facility]; [facility] Work Phone: 05-30-2007 10:19-0500 Body weight 83.46 kg Irina Bairon [facility]; [facility] Work Phone: 05-30-2007 10:19-0500 Diastolic blood pressure 74 mm[Hg] Irina Waddell [facility]; [facility] Work Phone: 05-30-2007 10:19-0500 Head Occipital-frontal circumference 0 cm Irina Waddell [facility]; [facility] Work Phone: 05-30-2007 10:19-0500 Heart rate 76 /min Irina Zavala [facility]; [facility] [...] 14:22-0500 Respiratory rate 16 /min Irina Waddell [facility]; [facility] Work Phone: 04-17-2007 14:22-0500 Systolic blood pressure 100 mm[Hg] Irina Zavala [...] 08:13-0400 Body weight 80.51 kg Enriqueta Gibson LPN [facility]; [facility] Work Phone: 12-20-2006 08:13-0400 Diastolic blood pressure 60 mm[Hg] Enriqueta Gibson J LUIS [facility]; [facility] Work Phone: 12-20-2006 08:13-0400 Head Occipital-frontal circumference 0 cm Enriqueta Arthur DIETZ [facility]; [facility] Work Phone: 12-20-2006 08:13-0400 Heart rate 70 /min Enriqueta Arthur DIETZ [facility]; [facility] Work Phone: 12-20-2006 08:13-0400 Respiratory rate 16 /min Enriqueta Arthur DIETZ [facility]; [facility] Work Phone: 12-20-2006 08:13-0400 Systolic blood pressure 108 mm[Hg] Enriqueta Gibson J LUIS [facility] [...] 05-24-2006 13:34-0500 Body weight 80.51 kg Irina Zavala [facility]; [facility] Work Phone: 05-24-2006 13:34-0500 Diastolic blood pressure 72 mm[Hg] Irina Waddell [facility]; [facility] Work Phone: 05-24-2006 13:34-0500 Head Occipital-frontal circumference 0 cm Irina Waddell [facility]; [facility] Work Phone: 05-24-2006 13:34-0500 Heart rate 72 /min Irina Waddell [facility]; [facility] Work Phone: 05-24-2006 13:34-0500 Respiratory rate 16 /min Irina Zavala [facility]; [facility] Work Phone: 05-24-2006 13:34-0500 Systolic blood pressure 98 mm[Hg] Irina Waddell [facility]; [facility] Work Phone: 03-18-2006 11:26-0500 Body height 0 cm Shebaeddi Cook [facility]; [facility] Work Phone: 03-18-2006 11:26-0500 Body temperature 97.8 [degF] Shebaeddi Cook [facility]; [facility] Work Phone: 03-18-2006 11:26-0500 Body weight 0 kg Sheba Cook [facility]; [facility] Work Phone: 03-18-2006 11:26-0500 Diastolic blood pressure 82 mm[Hg] Sheba Estradags [facility]; [facility] Work Phone: 03-18-2006 11:26-0500 Head Occipital-frontal circumference 0 cm Sheba [place] [facility]; [facility] Work Phone: 03-18-2006 11:26-0500 Heart rate 16 /min Shebaeddi Cook [facility]; [facility] Work Phone: 03-18-2006 11:26-0500 Respiratory rate 68 /min Shebaeddi Cook [facility]; [facility] Work Phone: 03-18-2006 11:26-0500 Systolic blood pressure 130 mm[Hg] Sheba Estradags [facility]; [facility] Work Phone: 03-17-2006 09:29-0500 Body height 0 cm Shebaeddi Cook [facility]; [facility] Work Phone: 03-17-2006 09:29-0500 Body temperature 98.1 [degF] Shebaeddi Cook [facility]; [facility] Work Phone: 03-17-2006 09:29-0500 Body weight 83.01 kg Sheba Joey [facility]; [facility] [...] 03-17-2006 09:29-0500 Systolic blood pressure 108 mm[Hg] Sheba Cook [facility]; [facility] [...] [facility] Work Phone: 12-14-2005 13:25-0400 Systolic blood pressure 110 mm[Hg] Enriqueta Gibson LPN [facility]; [facility] Work Phone: Encounters Encounter Date Encounter Type Care Provider Facility Start: 09-19-2024 ambulatory Catherine Magana Facility:[facility] Start: 09-11-2024 End: 09-11-[address] Catherine Magana DO Work Phone: [facility] Work Phone: Start: 09-11-2024 End: 09-11-[address] Catherine Magana DO -Cat Scan [facility] Work Phone: Start: 09-11-2024 End: 09-11-2024 ambulatory Catherine Magana Facility:[facility] Start: 06-14-2024 End: 06-14-2024 Patient encounter procedure Krystyna Puga PA-C -[facility] Work Phone: Start: 06-14-2024 End: 06-14-2024 ambulatory Catherine Magana Facility:[facility] Start: 06-04-2024 Non-patient / Non-visit Dr. Edvin MO -[facility] Start: 06-04-2024 End: 06-04-2024 Admission to same day surgery center Dr. Roberto Parker MD -[facility] Start: 06-04-2024 End: 06-04-[address] Catherine Magana DO Work Phone: [facility] Work Phone: Start: 05-21-2024 End: 05-21-[address] Roberto Parker MD -[facility] Work Phone: Start: 05-21-2024 End: 05-21-2024 ambulatory Catherine Magana Facility:[facility] Start: 04-04-2024 End: 04-04-[address] Catherine Magana DO -Outpatient Breast Imaging Work Phone: Start: 04-04-2024 End: 04-04-2024 ambulatory Catherine Magana Facility:[facility] Start: 04-02-2024 End: 04-02-[address] Catherine Magana DO -Outpatient Breast Imaging Work Phone: Start: 04-02-2024 End: 04-02-2024 ambulatory Catherine Magana Facility:[facility] Start: 03-29-2024 End: 03-29-[address] Roberto Parker MD -Nuclear Medicine, [facility] Work Phone: Start: 03-29-2024 End: 03-29-2024 ambulatory Roberto Parker Facility:[facility] Start: 03-05-2024 End: 03-05-[address] Roberto Parker MD -[facility] Work Phone: Start: 03-05-2024 End: 03-05-2024 ambulatory Roberto Parker Facility:[facility] Start: 02-21-2024 End: 02-21-[address] Catherine Magana DO -Ultrasound, [facility] Work Phone: Start: 02-21-2024 End: 02-21-2024 ambulatory Catherine Magana Facility:[facility] Start: 06-07-2023 Non-patient / Non-visit Dr. Miranda Work Phone: [facility] Start: 06-07-2023 End: 06-07-[address] Catherine Magana Work Phone: [facility] Work Phone: Start: 06-07-2023 End: 06-07-[address] Catherine Magana Work Phone: [facility]-Cardiovascular Services Work Phone: Start: 03-31-2023 End: 03-31-2023 ambulatory [facility] Work Phone: Start: 03-31-2023 End: 03-31-2023 Patient encounter procedure [facility]-Outpatient Bone Densitometry Work Phone: Start: 03-08-2023 Registered [facility]erred [facility]Cardi[facility] Work Phone: Start: 10-25-2022 End: 10-25-2022 José Miguel Bryson MD Work Phone: [facility] Start: 10-22-2022 End: 10-22-2022 ambulatory VIRGILIO ROJAS Facility:[facility] Start: 10-22-2022 End: 10-22-2022 Subsequent hospital visit by physician Me[facility] Work Phone: Radiology Comment on above: Swelling of right robles nd [M79.89] Start: 10-22-2022 End: 10-22-2022 Patient encounter procedure Farzana Larsen APRN.CNP [facility] Phone[facility] Comment on above: Swelling of right robles nd (Primary Dx); Thumb pain, right Start: 10-18-2022 End: 10-18-2022 ambulatory VIRGILIO Lou CRYSTAL Facility:[facility] Start: 10-11-2022 End: 10-12-2022 ambulatory VIRGILIO ROJAS Facility:[facility] Start: 09-09-2022 End: 09-09-2022 Admission to same day surgery [facility]-[employer] [facility] [employer] [facility] Start: 09-09-2022 End: 09-09-2022 [facility] Work Phone: Start: 06-18-2022 End: 06-18-2022 ambulatory VIRGILIO [facility] Facility:[facility] Start: 06-18-2022 End: 06-18-2022 Patient encounter procedure Virgilio Rojas MD Work Phone: [facility] Comment on above: GERD without esophag itis (Primary Dx) Start: 04-19-2022 End: 04-19-2022 ambulatory VIRGILIO ROJAS Facility:[facility] Start: 04-19-2022 End: 04-19-2022 Patient encounter procedure Virgilio Rojas MD Work Phone: [facility] Comment on above: Medicare annual well ness visit, subsequent (Primary Dx); GERD without esophagitis; Elevated blood sugar; Nonrheumatic aortic valve insufficiency; Edema, unspecified type; Diverticulosis of colon; Herpes simplex infection of genitourinary system; Advance directive discussed with patient Start: 04-12-2022 End: 04-12-2022 ambulatory VIRGILIO ROJAS Facility:[facility] Start: 02-25-2022 End: 02-25-2022 Admission to same day surgery center [facility]-S[facility] Day Care Start: 02-25-2022 End: 02-25-2022 ambulatory [facility] Work Phone: Start: 01-15-2022 Refill Virgilio andrew MD Work Phone: [facility] Comment on above: Refill Request Start: 09-16-2021 End: 09-16-2021 Patient encounter procedure Virgilio Rojas MD Work Phone: [facility] Comment on above: Nonrheumatic aortic valve insufficiency (Primary Dx); GERD without esophagitis; Edema, unspecified type; Herpes simplex infection of genitourinary system; Medication management; Elevated blood sugar Start: 08-27-2021 End: 08-27-2021 Patient encounter procedure Marilyn Rubi APRN.CNP Work Phone: [facility] Comment on above: Allergic rash presen t on examination (Primary Dx) Start: 07-28-2021 Refill Virgilio andrew MD Work Phone: [facility] Comment on above: Refill Request Start: 06-22-2021 End: 06-22-2021 Patient encounter procedure Maria Dolores Garcia PA-C Work Phone: [facility] Comment on above: Palpitations (Primar y Dx); Nonrheumatic aortic valve insufficiency; GERD without esophagitis Start: 06-14-2021 End: 06-14-2021 Emergency department patient visit [facility]-Emergency Department Start: 04-17-2021 Patient encounter procedure Maria Dolores Garcia PA-C Work Phone: [facility] Work Phone: Start: 04-09-2021 End: 04-09-2021 Patient encounter procedure [facility]-Laboratory, Specimen Start: 04-13-2016 End: 04-15-2016 José Miguel Bryson MD Work Phone: [facility] Start: 03-25-2016 End: 04-06-2016 José Miguel Bryson MD Work Phone: [facility] Start: 12-25-2015 End: 12-25-2015 José Miguel Bryson MD Work Phone: [facility] Start: 12-23-2015 End: 12-23-2015 José Miguel Bryson MD Work Phone: [facility] Start: 12-18-2015 End: 12-18-2015 José Miguel Bryson MD Work Phone: [facility] Start: 12-16-2015 End: 12-18-2015 Preprocedural examination done José Miguel Bryson MD Work Phone: [facility] Start: 12-16-2015 End: 12-18-2015 José Miguel Bryson MD Work Phone: [facility] Start: 12-10-2015 End: 12-10-2015 Office outpatient visit 25 minutes José Miguel Bryson MD Work Phone: [facility] Start: 12-10-2015 End: 12-10-2015 Preprocedural examination done José Miguel Bryson MD Work Phone: [facility] Start: 11-19-2015 End: 11-19-2015 Office outpatient visit 5 minutes José Miguel Bryson MD Work Phone: [facility] Start: 11-12-2015 End: 11-12-2015 Office outpatient visit 25 minutes José Miguel Bryson MD Work Phone: [facility] Start: 11-12-2015 End: 11-12-2015 Preprocedural examination done José Miguel Bryson MD Work Phone: [facility] Start: 06-11-2015 End: 06-11-2015 Office outpatient visit 25 minutes José Miguel Bryson MD Work Phone: [facility] Start: 06-03-2015 End: 06-03-2015 José Miguel Bryson MD Work Phone: [facility] Start: 06-03-2015 End: 06-03-2015 Office outpatient visit 15 minutes José Miguel Bryson MD Work Phone: [facility] Start: 06-03-2015 End: 06-03-2015 José Miguel Bryson MD Work Phone: [facility] Start: 12-11-2014 End: 12-12-2014 Office outpatient visit 25 minutes José Miguel Bryson MD Work Phone: [facility] Start: 12-11-2014 End: 12-12-2014 Patient encounter procedure José Miguel Bryson MD Work Phone: [facility] Start: 11-20-2014 End: 11-20-2014 Office outpatient visit 5 minutes José Miguel Bryson MD Work Phone: [facility] Start: 10-14-2014 End: 10-14-2014 Office outpatient visit 15 minutes José Miguel Bryson MD Work Phone: [facility] Start: 09-11-2014 End: 09-13-2014 Office outpatient visit 25 minutes José Miguel Bryson MD Work Phone: [facility] Start: 04-01-2014 End: 04-01-2014 Office outpatient visit 25 minutes José Miguel Bryson MD Work Phone: [facility] Start: 03-11-2014 End: 03-11-2014 José Miguel Bryson MD Work Phone: [facility] Start: 03-06-2014 End: 03-07-2014 Office outpatient visit 25 minutes José Miguel Bryson MD Work Phone: [facility] Start: 02-25-2014 End: 02-25-2014 Office outpatient visit 40 minutes José Miguel Bryson MD Work Phone: [facility] Start: 09-21-2013 End: 09-21-2013 Office outpatient visit 10 minutes José Miguel Bryson MD Work Phone: [facility] Start: 09-10-2013 End: 09-10-2013 Office outpatient visit 15 minutes José Miguel Bryson MD Work Phone: [facility] Start: 09-05-2013 End: 09-05-2013 José Miguel Bryson MD Work Phone: [facility] Start: 08-10-2013 End: 08-13-2013 José Miguel Bryson MD Work Phone: [facility] Start: 07-26-2013 End: 07-26-2013 José Miguel Bryson MD Work Phone: [facility] Start: 07-18-2013 End: 07-18-2013 Patient encounter procedure José Miguel Bryson MD Work Phone: [facility] Start: 07-18-2013 End: 07-18-2013 José Miguel Bryson MD Work Phone: [facility] Start: 07-04-2013 End: 07-04-2013 José Miguel Bryson MD Work Phone: [facility] Start: 06-01-2013 End: 06-03-2013 José Miguel Bryson MD Work Phone: [facility] Start: 05-23-2013 End: 05-23-2013 José Miguel Bryson MD Work Phone: [facility] Start: 02-06-2013 End: 02-06-2013 José Miguel Bryson MD Work Phone: [facility] Start: 01-01-2013 End: 01-01-2013 José Miguel Bryson MD Work Phone: [facility] Start: 07-13-2012 End: 07-13-2012 José Miguel Bryson MD Work Phone: [facility] Start: 07-12-2012 End: 07-12-2012 José Miguel Bryson MD Work Phone: [facility] Start: 07-10-2012 End: 07-10-2012 José Miguel Bryson MD Work Phone: [facility] Start: 06-20-2012 End: 06-20-2012 Office outpatient visit 15 minutes José Miguel Bryson MD Work Phone: [facility] Start: 03-08-2012 End: 03-08-2012 José Miguel Bryson MD Work Phone: [facility] Start: 03-08-2012 End: 03-08-2012 José Miguel Bryson MD Work Phone: [facility] Start: 01-21-2012 End: 01-21-2012 José Miguel Bryson MD Work Phone: [facility] Start: 11-12-2011 End: 11-12-2011 José Miguel Bryson MD Work Phone: [facility] Start: 11-09-2011 End: 11-09-2011 José Miguel Bryson MD Work Phone: [facility] Start: 10-29-2011 End: 10-29-2011 José Miguel Bryson MD Work Phone: [facility] Start: 10-26-2011 End: 10-26-2011 Office outpatient visit 15 minutes José Miguel Bryson MD Work Phone: [facility] Start: 10-22-2011 End: 10-22-2011 José Miguel Bryson MD Work Phone: [facility] Start: 10-12-2011 End: 10-12-2011 Office outpatient visit 10 minutes José Miguel Bryson MD Work Phone: [facility] Start: 09-13-2011 End: 09-13-2011 Office outpatient visit 15 minutes José Miguel Bryson MD Work Phone: [facility] Start: 08-24-2011 End: 08-24-2011 Office outpatient visit 25 minutes José Miguel Bryson MD Work Phone: [facility] Start: 07-06-2011 End: 07-06-2011 Patient encounter procedure José Miguel Bryson MD Work Phone: [facility] Start: 07-06-2011 End: 07-06-2011 José Miguel Bryson MD Work Phone: [facility] Start: 07-05-2011 End: 07-05-2011 Office outpatient visit 15 minutes José Miguel Bryson MD Work Phone: [facility] Start: 06-15-2011 End: 06-15-2011 José Miguel Bryson MD Work Phone: [facility] Start: 04-14-2011 End: 04-14-2011 José Miguel Bryson MD Work Phone: [facility] Start: 03-31-2011 End: 03-31-2011 José Miguel Bryson MD Work Phone: [facility] Start: 03-03-2011 End: 03-03-2011 José Miguel Bryson MD Work Phone: [facility] Start: 03-03-2011 End: 03-03-2011 José Miguel Bryson MD Work Phone: [facility] Start: 02-16-2011 End: 02-16-2011 Office outpatient visit 10 minutes José Miguel Bryson MD Work Phone: [facility] Start: 01-27-2011 End: 01-27-2011 José Miguel Bryson MD Work Phone: [facility] Start: 01-07-2011 End: 01-07-2011 José Miguel Bryson MD Work Phone: [facility] Start: 12-14-2010 End: 12-14-2010 José Miguel Bryson MD Work Phone: [facility] Start: 08-03-2010 End: 08-03-2010 José Miguel Bryson MD Work Phone: [facility] Start: 08-03-2010 End: 08-03-2010 José Miguel Bryson MD Work Phone: [facility] Start: 04-27-2010 End: 04-27-2010 José Miguel Bryson MD Work Phone: [facility] Start: 03-23-2010 End: 03-23-2010 Office outpatient visit 15 minutes José Miguel Bryson MD Work Phone: [facility] Start: 03-18-2010 End: 03-18-2010 José Miguel Bryson MD Work Phone: [facility] Start: 10-07-2009 End: 10-07-2009 Preprocedural examination done José Miguel Byrson MD Work Phone: [facility] Start: 10-07-2009 End: 10-07-2009 José Miguel Bryson MD Work Phone: [facility] Start: 06-17-2009 End: 06-17-2009 José Miguel Bryson MD Work Phone: [facility] Start: 03-25-2009 End: 03-25-2009 José Miguel Bryson MD Work Phone: [facility] Start: 03-18-2009 End: 03-18-2009 José Miguel Bryson MD Work Phone: [facility] Start: 12-30-2008 End: 12-30-2008 José Miguel Bryson MD Work Phone: [facility] Start: 12-30-2008 End: 12-30-2008 Office outpatient visit 25 minutes José Miguel Bryson MD Work Phone: [facility] Start: 12-30-2008 End: 12-30-2008 Preprocedural examination done José Miguel Bryson MD Work Phone: [facility] Start: 11-22-2008 End: 11-22-2008 José Miguel Bryson MD Work Phone: [facility] Start: 08-20-2008 End: 08-20-2008 José Miguel Bryson MD Work Phone: [facility] Start: 07-31-2008 End: 08-01-2008 José Miguel Bryson MD Work Phone: [facility] Start: 07-17-2008 End: 07-18-2008 José Miguel Bryson MD Work Phone: [facility] Start: 05-09-2008 End: 05-09-2008 José Miguel Bryson MD Work Phone: [facility] Start: 04-29-2008 End: 04-29-2008 José Miguel Bryson MD Work Phone: [facility] Start: 02-19-2008 End: 02-19-2008 José Miguel Bryson MD Work Phone: [facility] Start: 01-29-2008 End: 01-29-2008 José Miguel Bryson MD Work Phone: [facility] Start: 09-13-2007 End: 09-13-2007 José Miguel Bryson MD Work Phone: [facility] Start: 05-30-2007 End: 05-30-2007 Office outpatient visit 25 minutes José Miguel Bryson MD Work Phone: [facility] Start: 04-17-2007 End: 04-18-2007 Preprocedural examination done José Miguel Bryson MD Work Phone: [facility] Start: 04-17-2007 End: 04-18-2007 José Miguel Bryson MD Work Phone: [facility] Start: 04-10-2007 End: 04-10-2007 José Miguel Bryson MD Work Phone: [facility] Start: 01-30-2007 End: 01-30-2007 Office consultation new/estab patient 40 min José Miguel Bryson MD Work Phone: [facility] Start: 12-20-2006 End: 12-20-2006 José Miguel Bryson MD Work Phone: [facility] Start: 05-30-2006 End: 05-30-2006 José Miguel Bryson MD Work Phone: [facility] Start: 05-24-2006 End: 05-24-2006 Patient encounter procedure José Miguel Bryson MD Work Phone: [facility] Start: 05-24-2006 End: 05-24-2006 José Miguel Bryson MD Work Phone: [facility] Start: 03-24-2006 End: 03-24-2006 José Miguel Bryson MD Work Phone: [facility] Start: 03-17-2006 End: 03-22-2006 Office outpatient visit 40 minutes José Miguel Bryson MD Work Phone: [facility] Start: 03-09-2006 End: 03-09-2006 José Miguel Bryson MD Work Phone: [facility] Medicine Start: 12-14-2005 End: 12-14-2005 Office outpatient visit 15 minutes José Miguel Bryson MD Work Phone: [facility] Start: 12-14-2005 End: 12-14-2005 José Miguel Bryson MD Work Phone: [facility] Patient encounter procedure Gail Villanueva RN [facility] Work Phone: Patient encounter procedure Laurence Najera LPN [facility] Work Phone: End: 11-09-2011 Patient encounter procedure Baylee Quinten [facility] Work Phone: End: 04-13-2016 Preprocedural examination done José Miguel Bryson MD Work Phone: [facility] Work Phone: End: 08-03-2010 Preprocedural examination done Melter Caster [facility] Work Phone: Procedures Date Procedure Procedure Detail Performing Clinician Start: 09-11-2024 Computed tomography of abdomen and pelvis with contrast Dr. Catherine Magana DO Work Phone: Start: 06-04-[address] Catherine Magana DO Work Phone: Start: 04-04-[address] Catherine Magana DO Work Phone: Start: 04-04-[address] Catherine Magana DO Work Phone: Start: 04-02-[address] Catherine Magana DO Work Phone: Start: 03-29-2024 Radionuclide study of abdomen Dr. Catherine Magana DO Work Phone: Start: 02-21-[address] Catherine Magana DO Work Phone: Start: 03-31-2023 Dual energy X-ray absorptiometry Dr. Catherine Mgaana Work Phone: Start: 03-31-2023 Screening mammography Start: 10-22-2022 Radex hand minimum 3 views Farzana Larsen [employer] Work Phone: Start: 09-09-2022 Decompression of median nerve Start: 02-25-2022 Release of trigger finger Start: 06-14-2021 CT angiography of chest with contrast Start: 06-14-2021 Plain chest X-ray Start: 10-08-2020 Adult depression screening assessment Maria Dolores Garcia PA-C Work Phone: Start: 02-09-2017 End: 02-09-2017 Urnls dip stick/tablet rgnt non-auto w/o micrscp Roberto LOPEZ Work Phone: Start: 07-12-2016 End: 07-30-2016 Pulmonary Function Test - complete Michelle Trejo [employer] Work Phone: Start: 07-12-2016 End: 07-30-2016 Pulmonary Function Test - complete Michelle Trejo [employer] Work Phone: Start: 07-01-2016 End: 07-01-2016 Urnls dip stick/tablet rgnt non-auto w/o micrscp Roberto LOPEZ Work Phone: Start: 07-01-2016 End: 07-01-2016 Urinalysis nonauto w/o scope Roberto LOPEZ Work Phone: Start: 11-12-2015 End: 11-12-2015 Ecg routine ecg w/least 12 lds w/i&r [MEASUREMENTS ANALYSIS] Date of Test: 11/12/2015 10:42:50; Heart Rate: 42; OR Interval: 170; QRS: 100; QT Interval: 478; Corrected QT Interval (QTc): 447; P [place]: 33; QRS [place]: -9; T [place]: -1; Blood Pressure: 106/74 [ECG DIAGNOSTIC STATEMENTS] Date of Test: 11/12/2015 10:42:50; Summary: Marked sinus Bradycardia BORDERLINE RHYTHM Sugar Hebert Work Phone: Start: 09-25-2015 End: 09-26-2015 Procedure Note: See Note; NOTES: [facility] Imaging Services [address] [place] [address] Verdana 4d Bilat Scrn Digital AND CAD MR#: [id number] Acct: [id number] Name: SUGAR COONEY Rep #: [id number] : 1940 F 75 From: Kait Osman MD PCP: Catherine Magana DO Status: REG CLI Study: Bilat Scrn Digital AND CAD Date of Exam: 09/25/15 Exam# [id number] Ordering Dr: Catherine Magana DO MAMMOGRAPHY - [...] delay biopsy of a clinically suspicious abnormality. [id number] Electronically Signed: Kait Osman MD at 17:26 EDT Tel , Service support [phone], CC: Catherine Magana DO Logistics Analyst: Signed Catherine Magana DO Work Phone: Start: 08-07-2015 End: 07-30-2016 Follow Up Appt 1 year Michelle Trejo [employer] Work Phone: Start: 08-07-2015 End: 07-30-2016 Follow Up Appt 1 year Michelle Trejo [employer] Work Phone: Start: 07-20-2015 End: 07-20-2015 Procedure Note: See Note; NOTES: [facility] Pulmonary Services/Neurology [address] [place] [address] Pulmonary Function Test (Comp) MR#: [id number] Acct: [id number] Name: SUGAR COONEY Rep #: [id number] : 1940 75 From: Marcel Landis MD Referring Dr: Marcel Landis MD Status: REG CLI Ordering Dr: Marcel Landis MD Date: 07/07/15 Location: [facility] Sex: F C DATE OF SERVICE: 07/07/2015 [...] test with no significant change since 2014. MARCEL LANDIS MD C C: Primary Care Physician . T: NTS JOB: [id number] 07/20/15 0844 <Electronically signed by Marcel Landis MD> Date Marcel Landis MD CC: Marcel Landis MD; Catherine Magana DO Date Dictated: 07/19/15 1000 Date Transcribed: 07/19/15 1000 Logistics Analyst: Signed Marcel Landis Work Phone: Start: 11-12-2014 End: 11-12-2014 Procedure Note: See Note; NOTES: [facility] [address] [place] [address] Fax REHABILITATION SERVICES DISCHARGE SUMMARY MR#: [id number] Acct: [id number] Name: SUGAR COONEY Rep #: [id number] : 1940 74 From: Toni Danielson Referring : Catherine Magana DO Status: PRE RCR Eval Date: Discharge Date: DATE OF SERVICE: REFERRING PHYSICIAN: Dr. Catherine Magana This patient by the name of Sugar Cooney was born on 1940, was referred to [...] status and her discharge status was [id number], CH, but after 2 visits the patient was discharged from our clinic. She will be following up with you as needed. Once again, thank you for this referral. Toni Danielson, PT T: NTS JOB: [id number] <Electronically signed by Toni Danielson > 11/12/14 1107 CC: Signed José Miguel Bryson MD Work Phone: Start: 10-01-2014 End: 10-01-2014 Procedure Note: See Note; NOTES: [facility] [address] [place], [place] [address] Fax REHABILITATION SERVICES INITIAL EVALUATION MR#: [id number] Acct: [id number] Name: SUGAR COONEY Rep #: [id number] : 1940 74 From: Toni Danielson Referring : Catherine Magana DO Status: REG RCR Insurance: [facility] MEDICARE Eval Date: DATE OF SERVICE: REFERRING [...] strengthening. Toni Danielson, PT T: GALINDO JOB: [id number] <Electronically signed by Toni Danielson > 10/01/14 1001 CC: Signed For Medicare only, by signing this I certify the plan of care. ___ Physicians Signature Date José Miguel Bryson MD Work Phone: Start: 09-20-2014 End: 09-20-2014 Procedure Note: See Note; NOTES: [facility] Imaging Services [address] [place] [address] Ultrasound Report MR#: [id number] Acct: [id number] Name: SUGAR COONEY Rep #: [id number] : 1940 F 74 From: Raul Brandt MD PCP: Catherine Magana DO Status: REG CLI Study: Breast Limited Unilateral Date of Exam: 09/20/14 Exam# [id number] Ordering Dr: Catherine Magana DO STUDY: ULTRASOUND [...] Raul Brandt MD at 11:21 EDT Tel [phone], Service support [phone], CC: Catherine Magaan DO Logistics Analyst: Signed Catherine Magana DO Work Phone: Start: 09-19-2014 End: 09-19-2014 Procedure Note: See Note; NOTES: [facility] Imaging Services [address] [place] [address] Breast Imaging Report MR#: [id number] Acct: [id number] Name: SUGAR COONEY Rep #: [id number] : 1940 F 74 From: Raul Brandt MD PCP: Catherine Magana DO Status: REG CLI Study: Estella Carrera Digital AND CAD Date of Exam: 09/19/14 Exam# [id number] Ordering Dr: Catherine Magana DO MAMMOGRAPHY - [...] Raul Brandt MD at 16:14 EDT Tel [phone], Service support [phone], CC: Catherine Magana DO Logistics Analyst: Signed Catherine Magana DO Work Phone: Start: 09-19-2014 End: 09-20-2014 Procedure Note: See Note; NOTES: [facility] Imaging Services [address] [place] [address] Bone Density Report MR#: [id number] Acct: [id number] Name: SUGAR COONEY Rep #: [id number] : 1940 F 74 From: Raul Brandt MD PCP: Catherine Magana DO Status: REG CLI Study: Dexa Bone Density Study (HP) Date of Exam: 09/19/14 Exam# [id number] Ordering Dr: Catherine Magana DO STUDY: DUAL [...] Raul Brandt MD at 15:50 EDT Tel [phone], Service support [phone], CC: Catherine Magana DO Logistics Analyst: Signed Catherine Magana DO Work Phone: Start: 09-11-2014 End: 09-11-2014 Procedure Note: See Note; NOTES: [facility] Imaging Services [address] [place] [address] Radiology Report MR#: [id number] Acct: [id number] Name: SUGAR COONEY Rep #: [id number] : 1940 F 74 From: Jana Mcclelland MD PCP: Catherine Magana DO Status: REG CLI Study: Thoracic Spine 3 Views Date of Exam: 09/11/14 Exam# [id number] Ordering Dr: Catherine Magana DO STUDY: X-RAY [...] MD at 23:38 EDT , Service support [phone], RAD/Thoracic Spine 3 Views IMPRESSION: Degenerative disease throughout thoracic spine. No acute fracture. Electronically Signed: Joseph Mcclelland MD at 23:38 EDT , Service support [phone], CC: Catherine Magana DO Logistics Analyst: Signed Catherine Magana DO Work Phone: Start: 08-29-2014 End: 08-29-2014 Procedure Note: See Note; NOTES: [facility] Pulmonary Services/Neurology [address] [place] [address] MR#: [id number] Acct: [id number] Name: SUGAR COONEY Rep #: [id number] : 1940 74 From: Marcel Landis MD Referring Dr: Marcel Landis MD Date: Ordering Dr: Sex: F C Location: [facility] 6 Minute Walk Test - 6 Minute Walk Test 6 Minute Walk Test: 6 Minute Walk Test PSN 6 Minute Walk Test Start: 08/01/14 11:26 Freq: Status: Active Document 08/01/14 11:26 FR (Rec: 08/01/14 11:29 FR [id number]) 6 Minute Walk Test Date Performed 08/01/14 Time Performed 11:00 Height 1.63 m Weight: 87.[address]: Marcel Landis Oxygen Delivery Method Room Air Assistive Device [...] desaturation. 08/29/14 1524 <Electronically signed by Marcel Landis MD> Date Marcel Landis MD CC: Date Dictated: 08/01/14 1559 Date Transcribed: 08/01/14 155 Logistics Analyst: Marcel Landis Signed José Miguel Bryson MD Work Phone: Start: 08-07-2014 End: 08-08-2014 Documentation of current medications Marcel Landis Work Phone: Start: 08-07-2014 End: 08-08-2014 Documentation of current medications Marcel Landis Work Phone: Start: 08-05-2014 End: 08-05-2014 Procedure Note: See Note; NOTES: [facility] Pulmonary Services/Neurology [address] [place] [address] Pulmonary Function Test (Comp) MR#: [id number] Acct: [id number] Name: SUGAR COONEY Rep #: [id number] : 1940 74 From: Marcel Landis MD Referring Dr: Marcel Landis MD Status: REG CLI Ordering Dr: Marcel Landis MD Date: 07/30/14 Location: [facility] Sex: F C Date: 07/30/14 Tech.: CARIE CORBETT Temp: PBar: Height(in.): 61 Weight(lbs.): 193 Diagnosis: [...] limits. 08/05/14 0641 <Electronically signed by Marcel Landis MD> Date Marcel Landis MD CC: Marcel Landis MD; Catherine Magana DO Date Dictated: 07/31/14 1500 Date Transcribed: 08/01/14 0633 Logistics Analyst: ROBLES Signed Marcel Landis Work Phone: Start: 08-01-2014 End: 08-01-2014 Procedure Note: See Note; NOTES: [facility] Pulmonary Services/Neurology [address] [place] [address] MR#: [id number] Acct: [id number] Name: SUGAR COONEY Rep #: [id number] : 1940 74 From: Marcel Landis MD Referring Dr: Marcel Landis MD Date: Ordering Dr: Sex: F C Location: [facility] PSN 6 Minute Walk Test - 6 Minute Walk Test 6 Minute Walk Test: 6 Minute Walk Test PSN 6 Minute Walk Test Start: 08/01/14 11:26 Freq: Status: Active Document 08/01/14 11:26 FR (Rec: 08/01/14 11:29 FR [id number]) 6 Minute Walk Test Date Performed 08/01/14 Time Performed 11:00 Height 1.63 m Weight: 87.[address]: Marcel Landis Oxygen Delivery Method Room Air Assistive Device [...] desaturation. 08/01/14 1600 <Electronically signed by Marcel Landis MD> Date Marcel Landis MD CC: Date Dictated: 08/01/14 1559 Date Transcribed: 08/01/141558 Logistics Analyst: Marcel Bryson MD Work Phone: Start: 05-07-2014 End: 05-08-2014 Documentation of current medications Marcel Landis Work Phone: Start: 05-07-2014 End: 05-08-2014 Documentation of current medications Marcel Landis Work Phone: Start: 03-15-2014 End: 03-15-2014 Procedure Note: See Note; NOTES: [facility] Cardiovascular Services [address] [place] [address] STRESS TEST REPORT 03/15/14 1433 MR#: [id number] Acct: [id number] Name: SUGAR COONEY Rep #: [id number] : 1940 74 From: Vaibhav North MD [...] <Electronically signed by Vaibhav North MD> Date Vaibhav North MD CC: Vaibhav North MD; Catherine Magana DO Date Dictated: 03/15/14 1433 Date Transcribed: 03/15/14 1610 Logistics Analyst: RBOLES Signed José Miguel Bryson MD Work Phone: Start: 03-14-2014 End: 03-15-2014 Procedure Note: See Note; NOTES: [facility] Imaging Services [address] [place] [address] CAT Scan Report MR#: [id number] Acct: [id number] Name: SUGAR COONEY Rep #: [id number] : 1940 F 74 From: Patricio Espana MD PCP: Catherine Magana DO Status: REG CLI Study: Chest without Contrast Date of Exam: 03/14/14 Exam# [id number] Ordering Dr: Catherine Magana DO STUDY: CT [...] MD at 8:28 EST , Service support [phone], CC: Catherine Magana DO Logistics Analyst: Signed Catherine Magana DO Work Phone: Start: 03-12-2014 End: 03-12-2014 Procedure Note: See Note; NOTES: [facility] Imaging Services [address] [place] [address] Ultrasound Report MR#: [id number] Acct: [id number] Name: SUGAR COONEY Rep #: [id number] : 1940 F 74 From: Raul Brandt MD PCP: Catherine Magana DO Status: REG CLI Study: Gallbladder Date of Exam: 03/12/14 Exam# [id number] Ordering Dr: Catherine Magana DO STUDY: ABDOMINAL ULTRASOUND - RIGHT UPPER QUADRANT REASON FOR VISIT: Female, 74 years old. Chest pain. TECHNIQUE: Ultrasound evaluation of the right upper quadrant was performed with real-time and static griggs-scale imaging. TECHNICAL QUALITY: Adequate. COMPARISON: None. FINDINGS: [...] Raul Brandt MD at 10:38 EST Tel [phone], Service support [phone], CC: Catherine Magana DO Logistics Analyst: Signed Catherine Magana DO Work Phone: Start: 02-27-2014 End: 02-27-2014 Procedure Note: See Note; NOTES: [facility] Cardiovascular Services [address] [place] [address] Echo Complete 02/27/14 1050 MR#: [id number] Acct: [id number] Name: SUGAR COONEY Rep #: [id number] : 1940 74 From: Jim Calvin MD Attending Dr: Catherine Magana DO Status: REG CLI Ordering Dr: Catherine Magana DO Date: 02/27/14 Location: [facility] Sex: F C Admitted: Procedure This was [...] cm/sec2 AI P1/2t: 725.1 msec TR max rachael: 254.3 cm/sec E/E' lat: 8.2 E/E' med: 10.3 TR max P.9 mmHg Interpretation Summary The estimated ejection fraction is 65 %. Normal diastology for age. Mild (1+) tricuspid valve insufficiency. Mild (1+) aortic valve insufficiency. Right ventricular systolic pressure estimated to be 31 mmHg. Compared to echo report dated 07/29/2008, no appreciable changes noted. ____ Ordering Physician: Catherine Magana Performed By: Joya Herman RDCS 02/27/14 1159 Date Jim Calvin MD CC: Catherine Magana DO Date Dictated: 02/27/14 1050 Date Transcribed: 02/27/141158 Logistics Analyst: Signed José Miguel Bryson MD Work Phone: Start: 02-25-2014 End: 02-25-2014 Procedure Note: See Note; NOTES: [facility] Imaging Services [address] [place] [address] Radiology Report MR#: [id number] Acct: [id number] Name: SUGAR COONEY Rep #: [id number] : 1940 F 74 From: Patricio Espana MD PCP: Catherine Magana DO Status: REG CLI Study: Chest PA and Lateral Date of Exam: 02/25/14 Exam# [id number] Ordering Dr: Catherine Magana DO STUDY: X-RAY [...] MD at 10:41 EST , Service support [phone], RAD/Chest PA and Lateral IMPRESSION: Chronic interstitial changes, no acute findings Electronically Signed: Kelvin Espana MD at 10:41 EST , Service support [phone], CC: Catherine Magana DO Logistics Analyst: Signed Catherine Magana DO Work Phone: Start: 02-25-2014 End: 02-25-2014 Spmtry w/vc expiratory darrel w/wo mxml vol vntj _ Catherine Magana DO Work Phone: Start: 07-23-2013 End: 07-23-2013 Procedure Note: See Note; NOTES: [facility] Imaging Services [address] [place] [address] Breast Imaging Report MR#: [id number] Acct: [id number] Name: SUGAR COONEY Rep #: [id number] : 1940 F 73 From: Raul Brandt MD PCP: Catherine Magana DO Status: REG CLI Exam# [id number] Ordering Dr: Catherine Magana DO MAMMOGRAPHY - [...] Raul Brandt MD at 10:04 EDT Tel [phone], Service support [phone], CC: Catherine Magana DO Logistics Analyst: Signed Catherine Magana DO Work Phone: Start: 02-06-2013 End: 02-07-2013 Procedure Note: See Note; NOTES: [facility] Imaging Services [address] [place] [address] Radiology Report MR#: [id number] Acct: [id number] Name: SUGAR COONEY Rep #: [id number] : 1940 F 73 From: Patricio Collins MD PCP: Catherine Magana DO Status: REG CLI Exam# [id number] Ordering Dr: Catherine Magana DO STUDY: X-RAY [...] referring physician directly. Professional Interpretation Provided By: [employer], Phone , These documents contain legally protected [...] of these documents. CC: Catherine Magana DO Logistics Analyst: Signed Catherine Magana DO Work Phone: Start: 01-01-2013 End: 01-03-2013 Procedure Note: See Note; NOTES: [facility] Imaging Services [address] [place] [address] Radiology Report MR#: [id number] Acct: [id number] Name: SUGAR COONEY Rep #: [id number] : 1940 F 72 From: Colton Her PCP: Catherine Magana DO Status: REG CLI Study: Knee 4 or More Views Date of Exam: 01/01/13 Exam# [id number] Ordering Dr: Catherine Magana DO STUDY: X-RAY [...] January 01, 2013 at 8:44:23 PM EDT [phone] Electronically Signed BP/BP If you are the referring physician and would like to consult with the radiologist who provided this interpretation, please contact Colton eHr M.D. at [phone]. If this radiologist is unavailable, you will be directed to another radiologist to assist. If you are a patient with a question regarding this report, please contact your referring physician directly. Professional Interpretation Provided By: [employer], Phone , These documents contain legally protected [...] of these documents. CC: Catherine Magana DO Logistics Analyst: Signed Catherine Magana DO Work Phone: Decompression of med lucas nerve Gail Villanueva RN History of cholecystectomy S/P cholecystectomy Krystyna Puga PA-C Plan of Treatment Date Care Activity Detail Author Start: 10-11-2025 DIABETES SCREEN DIABETES SCREEN [facility] Start: 10-11-2025 Diabetes Screening Diabetes Screenin g [facility] Start: 04-12-2025 DIABETES SCREEN DIABETES SCREEN [facility] Start: 09-14-2024 DIABETES SCREEN DIABETES SCREEN [facility] Start: 06-04-2024 Anes intraperitoneal upper abdomen w/laps nos ANES IPER UPR ABD NOS [facility] Start: 06-04-2024 Laps surg cholecyste ctomy w/cholangiography LAPARO CHOLECYSTECTOMY/GRAPH [facility] Start: 06-04-2024 Patient discharge [facility] Start: 04-09-2024 DIABETES SCREEN DIABETES SCREEN [facility] Start: 11-27-2023 Covid-19 Vaccine ( season) Covid-19 Vaccine () [facility] Start: 11-27-2023 Influenza vaccination Influenz a Vaccine (#1) [facility] Start: 04-21-2023 Screening for osteoporosis Bone Density Screening [facility] Start: 04-19-2023 Urine microalbumin profile DTAP,TDAP,TD (2 - Td or Tdap) [facility] Comment on above: Postponed from 12/14 (Insurance Coverage) Start: 03-31-2023 Dual energy X-ray absorptiometry Dexa Bone Density Study [facility] Start: 03-28-2023 Advance Directive Discussion Advance Directive Discussion [facility] Start: 11-26-2022 Influenza vaccination INFLUENZA (#1) [facility] Start: 10-25-2022 Lipid panel [facility] Work Phone: Start: 10-25-2022 Urine albumin quantitative [facility] Work Phone: Start: 10-25-2022 Blood count complete auto&auto difrntl wbc [facility] Work Phone: Start: 10-25-2022 Comprehensive metabo lic panel [facility] Work Phone: Start: 10-08-2022 End: 12-08-2022 Hemoglobin A1c in Blood HGB A1C Lab Routine Elevated blood sugar Expected: 10/08/2022, Expires: 12/08/2022 [facility] Work Phone: Comment on above: Expected: 10/08/2022 , Expires: 12/08/2022 Start: 09-09-2022 Catheterization of vein [facility] Start: 09-09-2022 Following clinical pathway protocol [facility] Start: 09-09-2022 Patient discharge [facility] Start: 09-09-2022 Procedure discontinued [facility] Start: 09-09-2022 Taking patient vital signs [facility] Start: 09-09-2022 Vital signs measurements [facility] Start: 09-09-2022 [facility] Start: 09-09-2022 Medication education [facility] Start: 04-17-2022 Urine microalbumin profile DTAP,TDAP,TD (2 - Td or Tdap) [facility] Comment on above: Postponed from 12/14 (Insurance Coverage) Start: 04-11-2022 COVID-19 VACCINE (6 - Pfizer series) COVID-19 VACCINE (6 - Pfizer series) [facility] Start: 03-05-2022 End: 05-05-2022 CBC W Auto Differential panel - Blood CBC + DIFF Lab Routine Medication management Expected: 03/05/2022, Expires: 05/05/2022 [facility] Work Phone: Comment on above: Expected: 03/05/2022 , Expires: 05/05/2022 Start: 03-05-2022 End: 05-05-2022 Cobalamin (Vitamin B12) [Mass/volume] in Serum or Plasma VITAMIN B12 BLOOD Lab Routine GERD without esophagitis Medication management Expected: 03/05/2022, Expires: 05/05/2022 [facility] Work Phone: Comment on above: Expected: 03/05/2022 , Expires: 05/05/2022 Start: 03-05-2022 End: 05-05-2022 Comprehensive metabolic 2000 panel - Serum or Plasma COMP METABOLIC PANEL Lab Routine GERD without esophagitis Edema, unspecified type Medication management Expected: 03/05/2022, Expires: 05/05/2022 [facility] Work Phone: Comment on above: Expected: 03/05/2022 , Expires: 05/05/2022 Start: 03-05-2022 End: 05-05-2022 Hemoglobin A1c in Blood HGB A1C Lab Routine Elevated blood sugar Expected: 03/05/2022, Expires: 05/05/2022 [facility] Work Phone: Comment on above: Expected: 03/05/2022 , Expires: 05/05/2022 Start: 03-05-2022 End: 05-05-2022 Magnesium [Mass/volume] in Serum or Plasma MAGNESIUM BLD Lab Routine GERD without esophagitis Medication management Expected: 03/05/2022, Expires: 05/05/2022 [facility] Work Phone: Comment on above: Expected: 03/05/2022 , Expires: 05/05/2022 Start: 02-25-2022 Catheterization of vein [facility] Work Phone: Start: 02-25-2022 Following clinical pathway protocol [facility] Work Phone: Start: 02-25-2022 Patient discharge [facility] Work Phone: Start: 02-25-2022 Procedure discontinued [facility] Work Phone: Start: 02-25-2022 Taking patient vital signs [facility] Work Phone: Start: 02-25-2022 Vital signs measurements [facility] Work Phone: Start: 02-25-2022 [facility] Work [facility]: Start: 02-25-2022 Medication education [facility] Work Phone: Start: 11-26-2021 Influenza vaccination INFLUENZA (#1) [facility] Start: 10-08-2021 Adult depression screening assessment DEPRESSION SCREENING [facility] Start: 03-28-2021 ADVANCE DIRECTIVE DISCUSSION ADVANCE DIRECTIVE DISCUSSION [facility] Start: 03-28-2021 DEPRESSION ASSESSMENT DEPRESSION ASS ESSMENT [facility] Start: 12-14-2020 Urine microalbumin profile DTaP,Tdap,Td Vaccine (2 - Td or Tdap) [facility] [facility] Start: 02-09-2017 End: 02-09-2017 Appointment Appointment [facility] Work Phone: Start: 08-04-2016 End: 08-04-2016 Appointment Appointment [facility] [place] Work Phone: Start: 07-12-2016 End: 07-30-2016 Pulmonary Function Test - complete Pulmonary Function Test - complete [facility] Work Phone: Start: 07-12-2016 End: 07-30-2016 Pulmonary Function Test - complete Pulmonary Function Test - complete [facility] [place] Work Phone: Start: 04-13-2016 Procedure Education [facility]; [facility] Work Phone: Start: 12-16-2015 Patient Education Compr [facility]; [facility] Work Phone: Start: 12-16-2015 Procedure Education [facility]; [facility] Work Phone: Start: 12-16-2015 Provider Instruction s for Treatment [facility]; [facility] Work Phone: Start: 12-16-2015 Urine albumin quantitative [facility]; [facility] Work Phone: Start: 12-10-2015 Provider Instruction s for Treatment [facility]; [facility] Work Phone: Start: 11-19-2015 Provider Instruction s for Treatment [facility]; [facility] Work Phone: Start: 11-12-2015 Procedure Education [facility]; [facility] Work Phone: Start: 08-07-2015 End: 07-30-2016 Follow Up Appt 1 year Follow Up Appt 1 year [facility] Work Phone: Start: 08-07-2015 End: 07-30-2016 Follow Up Appt 1 year Follow Up Appt 1 year [facility] [place] Work Phone: Start: 07-27-2015 End: 08-07-2014 Pulmonary Function Test - complete Pulmonary Function Test - complete [facility] Work Phone: Start: 07-27-2015 End: 08-07-2014 Pulmonary Function Test - complete Pulmonary Function Test - complete [facility] [place] Work Phone: Start: 06-11-2015 Procedure Education [facility]; [facility] Work Phone: Start: 06-03-2015 Procedure Education [facility]; [facility] Work Phone: Start: 06-03-2015 Provider Instruction s for Treatment [facility]; [facility] Work Phone: Start: 10-14-2014 Protein electrophore tic fractj&quantj serum [facility]; [facility] Work Phone: Start: 09-11-2014 Procedure Education [facility]; [facility] Work Phone: Start: 08-07-2014 End: 08-07-2014 Follow Up Appt 1 year Follow Up Appt 1 year [facility] Work Phone: Start: 08-07-2014 End: 08-07-2014 Follow Up Appt 1 year Follow Up Appt 1 year [facility] [place] Work Phone: Start: 05-07-2014 End: 05-07-2014 Follow Up Appt 3 months Follow Up Appt 3 months [facility] Work Phone: Start: 05-07-2014 End: 05-07-2014 Pulmonary Fuction Test - complete Pulmonary Fuction Test - complete [facility] Work Phone: Start: 05-07-2014 End: 05-07-2014 Pulmonary stress test/simple Pulmonary stress testing; simple (eg, 6-minute walk) [facility] Work Phone: Start: 05-07-2014 End: 05-07-2014 Follow Up Appt 3 months Follow Up Appt 3 months [facility] [place] Work Phone: Start: 05-07-2014 End: 05-07-2014 Pulmonary Fuction Test - complete Pulmonary Fuction Test - complete [facility] [place] Work Phone: Start: 05-07-2014 End: 05-07-2014 Pulmonary stress test/simple Pulmonary stress testing; simple (eg, 6-minute walk) [facility] [place] Work Phone: Start: 04-01-2014 Blood count complete auto&auto difrntl wbc [facility]; [facility] Work Phone: Start: 04-01-2014 Urine albumin quantitative [facility]; [facility] Work Phone: Start: 04-01-2014 Lipid panel Comprehens [facility]; [facility] Work Phone: Start: 04-01-2014 Comprehensive metabo lic panel [facility]; [facility] Work Phone: Start: 02-25-2014 Patient Education Compr [facility]; [facility] Work Phone: Start: 09-21-2013 Procedure Education [facility]; [facility] Work Phone: Start: 09-21-2013 Culture bacterial quanttative colony count urine [facility]; [facility] Work Phone: Start: 09-10-2013 Procedure Education [facility]; [facility] Work Phone: Start: 09-10-2013 Provider Instruction s for Treatment [facility]; [facility] Work Phone: Start: 09-05-2013 Provider Instruction s for Treatment [facility]; [facility] Work Phone: Start: 07-18-2013 Provider Instruction s for Treatment [facility]; [facility] Work Phone: Start: 07-04-2013 Provider Instruction s for Treatment [facility]; [facility] Work Phone: Start: 06-20-2012 Patient Education Compr [facility]; [facility] Work Phone: Start: 06-20-2012 Provider Instruction s for Treatment [facility]; [facility] Work Phone: Start: 03-08-2012 Ova&parasites direct smears concentration & id [facility]; [facility] Work Phone: Start: 03-08-2012 Blood occult peroxid ase actv qual feces 1 deter [facility]; [facility] Work Phone: Start: 03-08-2012 Leukocyte assmt feca l qual/semiquantitative [facility]; [facility] Work Phone: Start: 03-08-2012 Iaad ia clostridium difficile toxin [facility]; [facility] Work Phone: Start: 03-08-2012 Cul bact stool aerob ic isol salmonella&shigell [facility]; [facility] Work Phone: Start: 11-09-2011 Patient Education Compr [facility]; [facility] Work Phone: Start: 11-09-2011 Cyclic citrullinated peptide antibody [facility]; [facility] Work Phone: Start: 10-26-2011 Provider Instruction s for Treatment [facility]; [facility] Work Phone: Start: 10-26-2011 Cyclic citrullinated peptide antibody [facility]; [facility] Work Phone: Start: 10-26-2011 Rheumatoid factor qualitative [facility]; [facility] Work Phone: Start: 10-12-2011 Patient Education Com[facility]; [facility] Work Phone: Start: 10-12-2011 Provider Instruction s for Treatment [facility]; [facility] Work Phone: Start: 08-24-2011 Provider Instruction s for Treatment [facility]; [facility] Work Phone: Start: 07-06-2011 Provider Instruction s for Treatment [facility]; [facility] Work Phone: Start: 07-05-2011 Provider Instruction s for Treatment [facility]; [facility] Work Phone: Start: 03-03-2011 Culture bacterial quanttative colony count urine [facility]; [facility] Work Phone: Start: 02-16-2011 Provider Instruction s for Treatment [facility]; [facility] Work Phone: Start: 01-07-2011 Provider Instruction s for Treatment [facility]; [facility] Work Phone: Start: 08-03-2010 Provider Instruction s for Treatment [facility]; [facility] Work Phone: Start: 04-27-2010 25 hydroxy includes fractions if performed [facility]; [facility] Work Phone: Start: 04-27-2010 Comprehensive metabo lic panel [facility]; [facility] Work Phone: Start: 04-27-2010 Lipid panel Comprehens [facility]; [facility] Work Phone: Start: 06-17-2009 Blood count manual c ell count each [facility]; [facility] Work Phone: Start: 06-17-2009 Urnls dip stick/tabl et reagent auto microscopy [facility]; [facility] Work Phone: Start: 06-17-2009 Assay of thyroid stimulating hormone tsh [facility]; [facility] Work Phone: Start: 06-17-2009 Comprehensive metabo lic panel [facility]; [facility] Work Phone: Start: 06-17-2009 Lipid panel Comprehens [facility]; [facility] Work Phone: Start: 06-17-2009 25 hydroxy includes fractions if performed [facility]; [facility] Work Phone: Start: 03-18-2009 Provider Instruction s for Treatment [facility]; [facility] Work Phone: Start: 03-18-2009 Comprehensive metabo lic panel [facility]; [facility] Work Phone: Start: 03-18-2009 Blood count manual c ell count each [facility]; [facility] Work Phone: Start: 03-18-2009 Lipid panel Comprehens [facility]; [facility] Work Phone: Start: 12-30-2008 Provider Instruction s for Treatment [facility]; [facility] Work Phone: Start: 11-22-2008 Comprehensive metabo lic panel [facility]; [facility] Work Phone: Start: 11-22-2008 Lipid panel Comprehens [facility]; [facility] Work Phone: Start: 08-20-2008 Comprehensive metabo lic panel [facility]; [facility] Work Phone: Start: 08-20-2008 25 hydroxy includes fractions if performed [facility]; [facility] Work Phone: Start: 07-18-2008 Provider Instruction s for Treatment [facility]; [facility] Work Phone: Start: 07-17-2008 25 hydroxy includes fractions if performed [facility]; [facility] Work Phone: Start: 07-17-2008 Urnls dip stick/tabl et rgnt auto w/o microscopy [facility]; [facility] Work Phone: Start: 07-17-2008 Assay of thyroid stimulating hormone tsh [facility]; [facility] Work Phone: Start: 07-17-2008 Lipid panel Comprehens [facility]; [facility] Work Phone: Start: 07-17-2008 Comprehensive metabo lic panel [facility]; [facility] Work Phone: Start: 07-17-2008 Blood count manual c ell count each [facility]; [facility] Work Phone: Start: 02-19-2008 Provider Instruction s for Treatment [facility]; [facility] Work Phone: Start: 01-29-2008 Provider Instruction s for Treatment [facility]; [facility] Work Phone: Start: 01-29-[address] gtt 3 specimens [facility]; [facility] Work Phone: Start: 05-30-2007 Provider Instruction s for Treatment [facility]; [facility] Work Phone: Start: 05-30-2007 Comprehensive metabo lic panel [facility]; [facility] Work Phone: Start: 01-30-2007 Comprehensive metabo lic panel [facility]; [facility] Work Phone: Start: 12-20-2006 Provider Instruction s for Treatment [facility]; [facility] Work Phone: Start: 05-30-2006 Provider Instruction s for Treatment [facility]; [facility] Work Phone: Start: 05-24-2006 Cytp cerv/vag auto t hin layer prep mnl screen [facility]; [facility] Work Phone: Start: 05-24-2006 Provider Instruction s for Treatment [facility]; [facility] Work Phone: Start: 03-22-2006 Comprehensive metabo lic panel [facility]; [facility] Work Phone: Start: 12-14-2005 1 25 dihydroxy inclu stephy fractions if performed [facility]; [facility] Work Phone: Start: 12-14-2005 Calcium urine quantitative timed specimen [facility]; [facility] Work Phone: Start: 12-14-2005 Protein electrophore tic fractj&quantj serum [facility]; [facility] Work Phone: Start: 12-14-2005 Assay of phosphorus inorganic [facility]; [facility] Work Phone: Start: 12-14-2005 Assay of parathormone C [facility]; [facility] Work Phone: Start: 12-14-2005 Provider Instruction s for Treatment [facility]; [facility] Work Phone: Start: 02-02-1960 Anxiety Screening Anxiety Screening [facility] Start: 02-02-1960 Depression Screening Depression Scre ening [facility] Patient Education [facility] [place] Work Phone: Patient referral [facility] Work Phone: End: 11-21-2023 XR DIGIT GENERAL 3V FRONTAL/LAT/OBL RIGHT XR DIGIT GENERAL 3V FRONTAL/LAT/OBL RIGHT Radiology STAT Thumb pain, right 1 Occurrences starting 10/22/2022 until 11/21/2023 [facility] Work Phone: Comment on above: 1 Occurrences starti ng 10/22/2022 until 11/21/2023 [facility] Work Phone: [facility] Work Phone: [facility] Work Phone: [facility] Work Phone: [facility] Work Phone: [facility] Work Phone: [facility] Work Phone: [facility] Work Phone: [facility] Work Phone: [facility] Work Phone: [facility] Work Phone: [facility] Work Phone: [facility] Work Phone: [facility] Work Phone: [facility] Work Phone: [facility] Work Phone: [facility]; [facility] Work Phone: [facility] Work Phone: [facility] Work Phone: [facility] Work Phone: [facility] Work Phone: [facility] Work Phone: [facility] Work Phone: [facility] Work Phone: [facility] Work Phone: [facility] Work Phone: [facility] Work Phone: [facility] Work Phone: [facility] Work Phone: [facility] Work Phone: [facility] Work Phone: [facility] Work Phone: [facility] Work Phone: [facility] Work Phone: [facility] Work Phone: [facility] Work Phone: [facility] Work Phone: [facility] Work Phone: [facility] Work Phone: [facility] Work Phone: [facility] Work Phone: [facility] Work Phone: [facility] Work Phone: [facility] Work Phone: [facility] Work Phone: [facility]; [facility] Work Phone: [facility]; [facility] Work Phone: Immunizations Immunization Date Immunization Notes Care Provider [facility] 12-27-2022 COVID-Pfizer (30 MCG/0.3 ML) Catherine Fast DO Work Phone: [facility]; [facility] Work Phone: 12-02-2022 influenza virus vaccine, unspecified formulation Xr [place] Work Phone: [facility] 12-10-2021 COVID-19 booster vaccine, age 12+ yr, bivalent (PFIZER-BIONTECH) Virgilio Rojas MD Work Phone: [facility] 12-29-2020 COVID-19 vaccine, ag e 12+ yr (PFIZER-BIONTECH - PURPLE TOP) Maria Dolores Garcia PA-C Work Phone: [facility] 11-27-2020 influenza, high dose seasonal, preservative-free Maria Dolores Garcia PA-C Work Phone: [facility] 06-12-2020 COVID-19 vaccine, ag e 12+ yr (PFIZER-BIONTECH - PURPLE [facility]) Maria Dolores Garcia PA-C Work Phone: [facility] 05-22-2020 COVID-19 vaccine, ag e 12+ yr (PFIZER-BIONTECH - PURPLE TOP) Maria Dolores Garcia PA-C Work Phone: [facility] 10-16-2019 zoster vaccine recombinant Maria Dolores Garcia PA-C Work Phone: [facility] 07-13-2019 zoster vaccine recombinant Maria Dolores Garcia PA-C Work Phone: [facility] 01-13-2018 influenza, high dose seasonal, preservative-free Maria Dolores Garcia PA-C Work Phone: [facility] 12-06-2017 pneumococcal polysaccharide vaccine, 23 valent Maria Dolores Garcia PA-C Work Phone: [facility] 12-16-2015 influenza, seasonal, injectable Maria Dolores Garcia PA-C Work Phone: [facility] 12-11-2014 influenza, seasonal, injectable Maria Dolores Garcia PA-C Work Phone: [facility] 03-06-2014 pneumococcal conjuga te vaccine, 13 valent Maria Dolores Garcia PA-C Work Phone: [facility] 01-01-2013 influenza, seasonal, injectable Maria Dolores Garcia PA-C Work Phone: [facility] 01-21-2012 influenza, seasonal, injectable Maria Dolores Garcia PA-C Work Phone: [facility] 07-06-2011 pneumococcal polysaccharide vaccine, 23 valent Maria Dolores Garcia PA-C Work Phone: [facility] 01-27-2011 influenza, seasonal, injectable Maria Dolores Garcia PA-C Work Phone: [facility] 12-14-2010 tetanus toxoid, redu amber diphtheria toxoid, and acellular pertussis vaccine, adsorbed Maria Doloresconchita Garcia PA-C Work Phone: [facility] 03-18-2010 influenza, seasonal, injectable Maria Dolores Garcia PA-C Work Phone: [facility] 12-30-2008 influenza, seasonal, injectable Maria Dolores Garcia PA-C Work Phone: [facility] 01-29-2008 influenza, seasonal, injectable Maria Dolores Garcia PA-C Work Phone: [facility] 01-30-2007 influenza, seasonal, injectable Maria Dolores Garcia PA-C Work Phone: [facility] 05-24-2006 pneumococcal polysaccharide vaccine, 23 valent Maria Doloresangel Garcia PA-C Work Phone: [facility] 03-24-2006 influenza, seasonal, injectable Maria Dolores Garcia PA-C Work Phone: [facility] 03-18-2006 influenza, seasonal, injectable Maria Dolores Garcia PA-C Work Phone: [facility] Payers Date Payer Category Payer Self-pay [id number] 2014 Medicare [employer] [place] [id number] 2014-Present [phone] [address] [place] [address] [facility] [id number] 2014 Medicare [employer] [place] [id number] 2014-Present [phone] [address] [place] [address] [facility] [id number] 2013 Medicare [id number] Unknown Unknown [id number] Unknown [id number] Unknown [id number] Unknown [id number] Unknown [id number] Unknown [id number] Unknown [id number] Unknown [id number] Unknown [id number] Unknown [id number] Unknown [id number] Social History Date Type Detail Facility Start: 06-14-2021 End: 09-03-2022 Tobacco smoking status NVIS Unknown if ever smoked [facility] Start: 07-17-2018 Non-smoker [facility] Start: 1940 Sex Assigned At Female C [facility] Start: 12-06-2017 End: 05-24-2024 Tobacco smoking status NVIS Never smoked tobacco [facility] Start: 06-22-2021 End: 10-22-2022 Alcohol intake Current drinker of alcohol (finding) [facility] Start: 04-14-2021 End: 04-15-2022 History SDOH Alcohol Frequency 1 [facility] Start: 04-14-2021 History SDOH Alcohol Std Drinks 98 [facility] Start: 07-09-2011 History SDOH Alcohol Comment socially [facility] Start: 04-14-2021 End: 04-15-2022 History SDOH Social Connections Phone 4 [facility] Start: 04-14-2021 End: 04-15-2022 History SDOH Social Connections Get Together 2 [facility] Start: 04-14-2021 End: 04-15-2022 History SDOH Social Connections Holiness 3 [facility] Start: 04-14-2021 End: 04-15-2022 History SDOH Financial 5 [facility] Start: 03-15-2020 Education 12 [facility] Start: 06-12-2021 End: 09-16-2021 Exposure to SARS-CoV-2 (event) Not sure [facility] Start: 12-06-2017 End: 04-19-2022 Tobacco use and exposure Smokeless tobacco non-user [facility] Start: 04-15-2022 End: 10-18-2022 History of Social function [facility] Start: 04-15-2022 End: 10-18-2022 Social connection and isolation panel [facility] Do you belong to any clubs or organizations such as nondenominational groups, unions, fraternal or athletic groups, or school groups? No [facility] Are you now , , , , never or living with a partner? [facility] How often to you hav e a drink containing alcohol? Monthly or less [facility] How many standard drinks containing alcohol do you have on a typical day? 1 or 2 [facility] How often do you hav e 6 or more drinks on 1 occasion? Never [facility] How hard is it for y ou to pay for the very basics like food, housing, medical care, and heating Not hard at all [facility] Do you feel stress - tense, restless, nervous, or anxious, or unable to sleep at night because your mind is troubled all the time - these days [OSQ] Not at all [facility] (I/We) worried yung er (my/our) food would run out before (I/we) got money to buy more. Never true [facility] Start: 12-07-2018 Gender identity Identifies as female gender (finding) [facility] Does not exercise. [facility] Work Phone: Never smoker. [facility] Work Phone: Start: 06-04-2024 Sex [facility] (finding[facility] Highlighted row [facility] NEGATED: Highlighted row Not [facility] Medical Equipment Procedure Code Equipment Code Equipment Original Text Equipment Identifier Dates Robot-assisted laparoscopic cholecystectomy without cholangiography Ligation clip, synthetic polymer, non-bioabsorbable [id number] FDA Start: 06-04-2024 Extraction, cataract, with IOL insertion IOL FDA Start: 07-24-2018 Extraction, cataract, with IOL insertion IOL FDA Start: 07-24-2018 Extraction, cataract, with IOL insertion IOL FDA Start: 07-24-2018 Extraction, cataract, with IOL insertion IOL FDA Start: 07-24-2018 Extraction, cataract, with IOL insertion IOL FDA Start: 07-24-2018 Extraction, cataract, with IOL insertion IOL FDA Start: 07-24-2018 Extraction, cataract, with IOL insertion IOL FDA Start: 07-24-2018 Extraction, cataract, with IOL insertion IOL FDA Start: 07-24-2018 Goals Date Patient Goal Desired Activity /State Functional Status Date Assessment Result Facility 06-04-2024 Functional status Ambulates;Bathroom Priv ilege [facility] Work Phone: Mental Status Date Assessment Result Facility 06-04-2024 Cognitive function Voice/Name [facility] Work Phone: 09-09-2022 Cognitive function Awake;Alert;Appropriat e [facility] Work Phone: 02-25-2022 Cognitive function Voice/Name [facility] Work Phone: 06-14-2021 Cognitive function Level Of Cons ciousness Awake;Alert;Appropriate;Follow s Commands [facility] Work Phone: Clinical Notes 12-31-2015 to 09-12-2024 Note Date & Type Note Facility 09-12-2024 Radiology Diagnostic study note [facility] Imaging Services [address] [place], [place] [address] Abdomen/Pelvis WITH Contrast MR#: [id number] Acct: [id number] Name: SUGAR COONEY Rep #: [id number] : 1940 F 84 From: Denise Modi MD PCP: Dr. Catherine Magana, DO Status: REG CLI Study:Abdomen/Pelvis WITH Contrast Date of Ex am: 09/11/24 Exam# [id number] Ordering Dr: Kimberli Magana ra, DO PROCEDURE: ABDOMEN/PELVIS WITH CONTRAST 09/12/2024 REASON FOR EXAM: CT ABDOMEN AND PELVIS W/CONTRAST - MID ABD. PAIN, NAUSEA, VOMITIN TECHNIQUE: ABDOMEN/PELVIS WITH CONTRAST. Coronal and Sagittal reconstruction series were provided. ORAL CONTRAST TYPE: None. AMOUNT: mL CONTRAST: VOLUME: mL One or more dose reduction techniques were used (e.g., Automated exposure control, adjustment of the mA and/or kV according to patient size, use of iterative reconstruction technique. RADIATION DOSE SUMMARY: CTDlvol: mGy DLP: mGycm COMPARISON: none FINDINGS: Average sized liver showing homogenous parenchymal attenuation with segment VII 9 mm hypodense focal lesion that could represent small cyst versus hemangioma. No dilated intra or extra-hepatic biliary tracts. Gall bladder is not identified Normal appearance of the pancreas with clear surrounding fat planes. The spleen, adrenal glands and IVC are unremarkable. Vascular atheromatous calcifications Both kidneys are of average size and showing smooth outline with preserved parenchymal thickness. No renal calculi. No hydronephrosis. Distension of the urinary bladder showing no obvious masses. No obvious masses related to the pelvic viscera. Prominent left parametrial veins. The appendix is not identified. No right iliac inflammatory changes. Diffuse gastric wall thickening, possibly gastritis. Advise clinical correlation. Colonic fecal loading. Colonic diverticulosis. No diverticulitis. The small bowel loops are unremarkable. No ascites or free air. No obvious pathologically enlarged lymph nodes. Scanned osseous structures show no osseous destruction. Thoracolumbar spondylosis. Scanned lung bases show basal atelectatic changes. CT/Abdomen/Pelvis WITH Contrast IMPRESSION: Diffuse gastric wall thickening, possibly gastritis. Advise clinical correlation. Colonic fecal loading. Colonic diverticulosis. No diverticulitis. No other acute pelvi-abdominal abnormalities, collections or free air. Reading [facility] CC: Dr. Catherine Magana DO ~ Logistics Analyst: Signed [facility] 06-04-2024 Consult note [facility] 06-04-2024 Consult note [facility] 06-04-2024 Consult note Note Date/Time June 04, 2024 3:33pm [facility] Medical Records Department [address] [place] [address] Anesthesia Postop Eval II 06/04/24 1225 MR#: [id number] Acct: [id number] Name: SUGAR COONEY Rep #:[id number] : 1940 84 From: Karson Perez MD PCP: Dr. Catherine Magana, DO Status:REG SDC Y Race: C Location: [facility]02- Anesthesia Postop Eval I Sum Postop Eval Completion status Anesthesia document: Postop Eval 1 completed: Yes Anesthesia Postop Eval I Summary Anesthesia Postop Eval I Summary: Anesthesia Postop Eval I: Assessment Summary Airway patent Yes 06/04/24 12:13 SUPERVISING EDITOR TRAILER.[email or web address] Spontaneous unlabored Yes 06/04/24 12:13 SUPERVISING EDITOR TRAILER.JSWI respirations Mental status Awake 06/04/24 12:13 SUPERVISING EDITOR TRAILER.JSWI nausea No 06/04/24 12:13 SUPERVISING EDITOR TRAILER.JSWI Vomiting No 06/04/24 12:13 SUPERVISING EDITOR TRAILER.JSWI Anesthesia Postop Eval I: Fluid Summary Crystalloid volume administer 800 06/04/24 12:13 SUPERVISING EDITOR TRAILER.JSWI (ml) Colloids volume administered ( ml) Blood Product volume administered (ml) Total IV fluid infused 800 06/04/24 12:13 SUPERVISING EDITOR TRAILER.JSWI Anesthesia Postop Eval I: Summary Notes Anesthesia Complication No 06/04/24 12:13 SUPERVISING EDITOR TRAILER.JSWI Anesthesia Complication Comment: Post-operative progress note Anesthesia: Postop Eval II Evaluation Mental status: Awake Pain Level: 0 nausea: No Vomiting: No 06/04/24 1225 <Electronically signed by Karson Perez MD > Date _ Karson Perez MD Cosigner Signature: Date CC: ~ Signed [facility] Work Phone: 1(115) 779-337803-10-2025 Discharge summary Author Roberto Parker [facility] Note Date/Time June 04, 2024 12: 23pm [facility] Medical Records Department [address] [place] [address] Instructions for Home/Discharge Instructions 06/04/24 1219 MR#: [id number] Acct: [id number] Name: SUGAR COONEY Rep #:[id number] : 1940 84 From: Roberto Parker MD PCP: Dr. Catherine Magana DO Status:REG [facility] Discharge Instructions Diet Discharge Diet: Light diet - advance as tolerated Activity Discharge Activity: Return to Normal Activity May shower in (days): 1 Ice area for (Minutes): 30 Lifting Restrictions: Keep lifting under 20 pounds for 3 to 4 weeks Dressing / Incision Call your doctor if your incision/area has: Continuous Slow Oozing, Sudden Increased Bleeding, Increased Pain/ Swelling, Increased Redness, Foul Smelling Discharge and Swelling at the incision site Call your doctor if you observe: Fever of 101 or Higher Cleanse incision/area with: Soap & Water Follow Up Care Please Follow Up With: Roberto Parker MD When: 2 weeks. Please call office to schedule appointment Test Results: Test results from this visit will be discussed in further detail at your follow- up appointment, if applicable. Discharge Plan Admission Primary Reason for Your Visit: Elective cholecystectomy Attending Provider: Roberto Parker Primary Care Provider: Catherine Magana Instructions Print Language: Turkmen Discharge Orders/Prescriptions Prescriptions: New oxycodone-acetaminophen [Percocet] 5-325 mg tablet 1 tab PO Q8H PRN (Reason: pain) 4 Days Qty: 10 0RF Continued omeprazole 20 mg capsule,delayed release(DR/EC) 20 mg PO BID rosuvastatin 5 mg tablet 5 mg PO QODAY ibandronate 150 mg tablet 150 mg PO QMONTH ascorbic acid (vitamin C) [C-500] 500 mg tablet 500 mg PO DAILY cranberry 500 mg capsule 500 mg PO BID Rx Instructions: administer with meals Referrals / Follow Up: Catherine Magana DO [Primary Care Provider] - Disposition Disposition (needs filled in before D/C Order can be placed): Home, Self Care 06/04/24 1223<Electronically signed by Roberto Parker MD>Roberto Parker MD CC: Dr. Catherine Magana, DO ~ Signed [facility] Work Phone: 1(154) 166-856303-10-2025 Consult note Author Marla Cancino [facility] Note Date/Time June 04, 2024 12: 13pm [facility] Medical Records Department [address] [place] [address] Anesthesia Postop Eval I 06/04/24 1212 MR#: [id number] Acct: [id number] Name: SUGAR COONEY Rep #:[id number] : 1940 84 From: Marla Lou PCP: Dr. Catherine Magana DO Status:REG SDC Y Race: C Location: [place] [address] Anesthesia: Postop Eval I Current Vital Signs Temperature: 98.1 F Pulse Rate: 82 Blood Pressure: 147/76 Respiratory Rate: 16 Pulse Ox: 96 Oxygen Delivery Method: Nasal Cannula Oxygen Flow Rate (L/min): 2 Assessment Airway patent: Yes Spontaneous unlabored respirations: Yes Mental status: Awake nausea: No Vomiting: No Anesthesia Complication: No Fluid Hydration Crystalloid volume administer (ml): 800 Total IV fluid infused: 800 Progress Note Anesthesia document: Postop Eval 1 completed: Yes 06/04/241212 <Electronically signed by Marla Broussard RNA> Date _ Marla Cancino CRNA Cosigner Signature: Date CC: ~ Signed [facility] Work Phone: 1(829) 481-591903-10-2025 Procedure note [facility] Medical Records Department [address] [place] [address] Operative Report 06/04/24 1223 MR#: [id number] Acct: [id number] Name: SUGAR COONEY Rep #:[id number] : 1940 84 From: Roberto Parker MD PCP: Dr. Catherine Magana, DO Status:REG [facility] Location: [place] [address] Problems Associated Problem List Diagnoses (1) Cholelithiasis: Procedures Digestive 40xxx-49xxx: 76230 Laparo cholecystectomy/graph Operative Report (Standard) Operative Information Date of Procedure: 06/04/24 Pre-Operative Diagnosis: Symptomatic cholelithiasis Post-Operative Diagnosis: Symptomatic cholelithiasis. Surgery/Procedure Performed: Robotic cholecystectomy with ICG cholangiography sponge fisherman: Yes Digital Art Director: Teo Kasper Tasks completed by assistant clinical nurse manager: Closing and Trocar Additional educational assistant?: No Type of Anesthesia: General and Local RN Documented Start/Stop Times: Operation Date: 06/04/24 10:35 Case Time Into Pre-Op 06/04/24 09:16 Out of Pre-Op 06/04/24 10:27 Anesthesia Start 06/04/24 10:30 Into Room 06/04/24 10:30 Procedure Start 06/04/24 10:56 Procedure End 06/04/24 11:57 Anesthesia End 06/04/24 12:08 Out of Room 06/04/24 12:08 Into Recovery 06/04/24 12:14 Procedure Start Time: 10:56 Procedure Stop Time: 11:57 Select all DRAINS/GRAFTS/IMPLANTS that apply: None Estimated Blood Loss: 5 mL Specimen collected: Yes Description of specimen(s) removed: Gallbladder Description of surgery: The patient is an 84-year-old female who was recently seen to the office with upper abdominal pain and complains of nausea especially after eating. She underwent right upper quadrant ultrasound showing gallstones. HIDA scan was normal. We suspect that her symptoms were likely biliary colic in nature and recommended cholecystectomy. I offered her a robotic cholecystectomy. We discussed the detailsof the planned procedure and she wished to proceed. The patient was brought to the operating room today following informed consent. She was placed supine on the operative table with arms outstretched on arm boards. General anesthesia was induced. The abdomen is then prepped and drapedin the usual sterile manner. Arms were comfortably tucked at her side. A 5 mm incision was made just below the umbilicus through which a 5 mm trocar was placed optically. This was placed without incident. Once in place the abdomen is then fully insufflated with CO2 gas There were no signs of bowel or vascularinjury. Next an 8 mm trocar was placed on the right sideof the abdomen under direct visualization. Next 2 additional 8 mm trocars were placed on the left side of the abdomen. The umbilical trocar was switched to an 8 mm trocar as well. The da Claudia robot was then brought onto the operative field and all ports were docked. 2 graspers and hook electrocautery were inserted. The gallbladder was identified in the right upper quadrant. This was grasped and reflected in cephalad direction. There was some adhesions to the undersurface of the gallbladder. These were taken down using hook electrocautery. The infundibulum of the gallbladder was identified and dissected out. The peritoneum on either side of the gallbladder was freed up. This allowed better mobilization of the infundibulum. This region was then carefully dissected. The cystic duct and cystic artery were both dissected out circumferentially. The lower third of the gallbladder was then dissected off the undersurface of the liver. The critical view of safety was able to be achieved. ICG cholangiography was utilized numerous times throughout the course of the procedure to control room helper in structure identification. Once both structures were identified going to the gallbladder and there were no other structures going to and from the gallbladder. These 2 structures were then clipped. 2 clipswere placed proximally on the cystic duct and 1 was placed distally. A proximal and distal clip wasplaced on the cystic artery. Both structures were then transected using electrocautery. The gallblad goran was then bovied off the undersurface of the liver using hook electrocautery connected to the hook. Oncethe gallbladder was free, it was placed into a bag and brought out through the left upper quadrant incision site. Liver bed was nicely hemostatic. The fasciaat the trocar site with the gallbladder was removed was closed using 0 PDS with the aid of a fascial closure device. The remaining trocars were opened up and insufflation was allowed to escape. A total of 30 cc of local anesthetic wereutilized. The skin incisions were closed with 4-0 Vicryl. Skin glue was applied as dressing. She was awakened from anesthesia and taken to recovery in good condition. An CAMERA SUPERVISOR was utilized as a loan assistant. His role included assistance with docking the robot, instrument changes and assistance with skin closure. Surgical Findings: Please see description of surgery Complications Complications: No Admit VTE Documentation VTE Present on Admission: No VTE Mechan Device Prophylaxis: SCD's VTE Pharm Prophylaxis ordered?: No Reason prophylaxis not ordered: Treatment Not Indicated 06/04/24 1231 Cosigner Signature (if applicable): CC: Dr. Catherine Magana DO; Dr. Roberto Parker MD~ Signed [facility]03-10-2025 Discharge summary [facility] Medical Records Department [address] [place] [address] Instructions for Home/Discharge Instructions 06/04/24 1219 MR#: [id number] Acct: [id number] Name: SUGAR COONEY Rep #:[id number] : 1940 84 From: Roberto Parker MD PCP: Dr. Catherine Magana DO Status:REG [facility] Discharge Instructions Diet Discharge Diet: Light diet - advance as tolerated Activity Discharge Activity: Return to Normal Activity May shower in (days): 1 Ice area for (Minutes): 30 Lifting Restrictions: Keep lifting under 20 pounds for 3 to 4 weeks Dressing / Incision Call your doctor if your incision/area has: Continuous Slow Oozing, Sudden Increased Bleeding, Increased Pain/ Swelling, Increased Redness, Foul Smelling Discharge and Swelling at the incision site Call your doctor if you observe: Fever of 101 or Higher Cleanse incision/area with: Soap & Water Follow Up Care Please Follow Up With: Roberto Parker MD When: 2 weeks. Please call office to schedule appointment Test Results: Test results from this visit will be discussed in further detail at your follow- up appointment, if applicable. Discharge Plan Admission Primary Reason for Your Visit: Elective cholecystectomy Attending Provider: Roberto Parker Primary Care Provider: Catherine Magana Print Language: Turkmen Discharge Orders/Prescriptions Prescriptions: New oxycodone-acetaminophen [Percocet] 5-325 mg tablet 1 tab PO Q8H PRN (Reason: pain) 4 Days Qty: 10 0RF Continued omeprazole 20 mg capsule,delayed release(DR/EC) 20 mg PO BID rosuvastatin 5 mg tablet 5 mg PO QODAY ibandronate 150 mg tablet 150 mg PO QMONTH ascorbic acid (vitamin C) [C-500] 500 mg tablet 500 mg PO DAILY cranberry 500 mg capsule 500 mg PO BID Rx Instructions: administer with meals Referrals / Follow Up: Catherine Magana DO [Primary Care Provider] - Disposition Disposition (needs filled in before D/C Order can be placed): Home, Self Care 06/04/24 1223Roberto Parker MD CC: Dr. Catherine Magana DO ~ Signed [facility]03-10-[address] [facility] Medical Records Department [address] [place] [address] Anesthesia Postop Eval I 06/04/24 1212 MR#: [id number] Acct: [id number] Name: SUGAR COONEY Rep #:[id number] : 1940 84 From: Marla Lou PCP: Dr. Catherine Magana DO Status:REG SDC Y Race: C Location: [place] [address] Anesthesia: Postop Eval I Current Vital Signs Temperature: 98.1 F Pulse Rate: 82 Blood Pressure: 147/76 Respiratory Rate: 16 Pulse Ox: 96 Oxygen Delivery Method: Nasal Cannula Oxygen Flow Rate (L/min): 2 Assessment Airway patent: Yes Spontaneous unlabored respirations: Yes Mental status: Awake nausea: No Vomiting: No Anesthesia Complication: No Fluid Hydration Crystalloid volume administer (ml): 800 Total IV fluid infused: 800 Progress Note Anesthesia document: Postop Eval 1 completed: Yes 06/04/24 1213 RNA> Date _ Marla Mercedesigner Signature: Date CC: ~ Signed [facility]03-10-2025 History and physical note Author Roberto Parker [facility] Note Date/Time June 04, 2024 9:4 9am [facility] Medical Records Department [address] [place] [address] History & Physical Exam 06/04/24 0948 MR#: [id number] Acct: [id number] Name: SUGAR COONEY Rep #:[id number] : 1940 84 From: Roberto Parker MD PCP: Dr. Catherine Magana, DO Status:REG [facility] Location: [place] [address] HPI - General General Date of Admission: 06/04/24 Date of Service: 06/04/24 Chief Complaint: Nausea; elective cholecystectomy HPI Narrative SUGAR COONEY, is a 84 F who presents for elective cholecystectomy. Patient has been having recurrent nausea issues for months. She was found to have gallstones. HIDA scan was normal. Nevertheless we suspect her symptoms may be biliary colic in nature. We discussed the details of the planned procedure and she wished to proceed. She is scheduled for robotic cholecystectomy today [facility] Medical History Wears hearing aid Arthritis High cholesterol Shortness of breath on exertion History of Holter monitoring History of echocardiogram Hypertension Nausea Cholelithiasis Wears glasses Post-menopausal Bladder disease Gastric reflux Non-smoker History of edema Cardiology follow-up encounter History of stress test Osteoporosis Blind right eye Jose's disease Home Medications ?Medication ?Instructions ?Recorded ?Last Taken ?Type ibandronate 150 mg tablet 150 mg PO QMONTH 03/05/24 Un known History omeprazole 20 mg capsule,delayed 20 mg PO BID 03/05/24 06/03/24 History release rosuvastatin 5 mg tablet 5 mg PO QODAY 03/05/24 Unkno wn History ascorbic acid (vitamin C) 500 mg 500 mg PO DAILY 05/24 Unknown History tablet (C-500) cranberry 500 mg capsule 500 mg PO BID 05/24/24 Unkno wn History Allergy/AdvReac Type Severity Reaction Status Date / Time No Known Allergies Allergy Verified 06/04/24 09:21 Surgical History Hx of bladder repair surgery Hx of colonoscopy Hx of foot surgery History of blepharoplasty H/O carpal tunnel repair History of cardiac catheterization Hx of left cataract extraction History of strabismus surgery History of appendectomy Social History Smoking Status: Never smoker alcohol intake: never substance use type: does not use Vital Signs Vital Signs Vital Signs: 06/04/24 09:29 06/04/24 09:29 Temperature 97.2 F L Temperature Source Temporal Pulse Rate 63 Respiratory Rate 16 Respiratory Pattern Normal Blood Pressure 163/66 H Blood Pressure Mean 98 Blood Pressure Source Monitor Blood Pressure Position Semi-Fowlers Blood Pressure Location Left Arm Pulse Ox 95 Oxygen Delivery Method Room Air Weight Weight: 173 lb Body Mass Index (BMI) 33.7 Physical Exam Const alert, oriented x3 and no apparent distress Assessment & Plan Assessment/Plan (1) Cholelithiasis: PLAN: Plan The patient is an 84-year-old female with persistent nausea and gallstones. I have offered her a laparoscopic/robotic cholecystectomy. We discussed the details of the planned procedure and she wishes to proceed. Surgery will begin shortly. 06/04/24948 <Electronically signed by Roberto Parker MD> Cosigner Signature (if applicable): CC: Dr. Catherine Magana DO; Dr. Roberto Parker MD~ Signed [facility] Work Phone: 1(236) 398-342403-10-2025 Consult note Author Karson charley [facility] Note Date/Time June 04, 2024 3:[address] [facility] Medical Records Department [address] [place] [address] Pre-Anesthesia Evaluation 06/04/24903 MR#: [id number] Acct: [id number] Name: SUGAR COONEY Rep #:[id number] : 1940 84 From: Karson Perez MD PCP: Dr. Catherine Magana DO Status:REG [facility] Y Race: C Location: [place] [address] ASA Classification* ASA Classification ASA Classification: 3 Assessment & Plan Anesthesia* Anesthesia Assessment Anesthesia Assessment: Discussed sedation and/or anesthesia options, risks, benefits, and alternatives with patient/parents/legal guardian/POA. Questions invited. The patient/parents/legal guardian/POA seems to understand and agrees to proceedwith anesthesia plan. Reviewed the physical assessment, medical history, allergy history and patient home medications list prior to surgery/procedure/anesthetic and documented any changes. Performed airway and anesthesia risk assessments. Anesthesia Type Anesthesia Type: General Anesthesia Focused Assessment* Airway Assessment Mouth opens: >3 cm Mallampati Score: II Focused Labs Anesthesia Preop lab: CBC WBC 7.2 K/mm3 (4.4-11.0) 06/14/21 15:00 06/14/21 RBC 4.76 M/mm3 (4.2-5.4) 06/14/21 15:00 06/14/21 Hgb 15.0 g/dL (12.0-15.0) 06/14/21 15:00 06/14/21 Hct 44.3 % (37-47) 06/14/21 15:00 06/14/21 Plt Count 194 K/mm3 (150-450) 06/14/21 15:00 06/14/21 CHEMISTRY Potassium 3.4 mmol/L (3.5-5.1) L 06/14/21 15:00 06/14/21 Sodium 144 mmol/L (136-145) 06/14/21 15:00 06/14/21 BUN 12 mg/dL (7-18) 06/14/21 15:00 06/14/21 Creatinine 0.73 mg/dL (0.55-1.02) 06/14/21 15:00 06/14/21 Glucose 90 mg/dL (74-106) 06/14/21 15:00 06/14/21 TSH 1.57 uIU/mL (0.358-3.74) 06/14/21 15:00 COAG Pre-Assessment Diagnosis/Proposed Procedure Planned Operative Procedure(s): ROBOTIC LAP ROSANNA WITH GRAMS Anesthesia History Anesthesia History - email manager: Anesthesia History - email manager Hx Hospitalization No 05/24/24 11:22 Any Problems With Anesthesia No 05/24/24 11:22 Cholinesterase deficiency No 05/24/24 11:22 You/Your Family Experience No 05/24/24 11:22 fever (hyperthermia) with Relationship Recent Exposure to Contagious No 09/09/22 06:27 Disease Does patient have nerve No 05/24/24 11:22 stimulator Patient instructed to have device shut off --Does patient have Pacemaker or ICD? When Was Last Pacemaker Check QUESTION #4 FULL TEXT: You/Your Family Experience fever (hyperthermia) with Anesthesia Last Oral Intake Last Oral intake: Last Oral Intake NPO since Meds taken in AM with sips of water? Meds patient instructed to take am of surgery PONV PONV - email manager: PONV - email manager Female Yes 05/24/24 11:22 HX of Motion Sickness No 05/24/24 11:22 HX of N/V After Surgery No 05/24/24 11:22 Non-Smoker Yes 05/24/24 11:22 Duration of Surgery greater No 05/24/24 11:22 than 60 minutes Number of Risk Factors 2 05/24/24 11:22 PONV Score Moderate Risk 05/24/24 11:22 Height & Weight Height & Weight: Anesthesia: Height & Weight Height 5 ft 05/21/24 08:50 Respiratory Assessment Respiratory Assessment - email manager: Respiratory Tract Infection Hx - email manager Hx Respiratory Tract Infection No 05/24/24 11:22 STOP Sleep Apnea STOP Sleep Apnea - email manager: STOP Sleep Apnea - email manager Hx Hypertension Yes: MANY YRS AGO 05/24/24 11:22 Hx Sleep Apnea No 05/24/24 11:22 CPAP BIPAP Do you snore loudly (louder No 05/24/24 11:22 than talking or can be heard Do you often feel tired/ No 05/24/24 11:22 fatigued/ sleepy during daytime? Has anyone observed you stop No 05/24/24 11:22 breathing during sleep? STOP Results Negative 05/24/24 11:22 QUESTION #5 FULL TEXT : Do you snore loudly (louder than talking or can be heard through closed doors)? 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 Specify any problems Hx of Preganancy in last 3 No 05/24/24 11:22 Months Nurse Filling Out Transfusion DSCHRIBER 05/24/24 11:22 & Questions: Date: 05/24/24 05/24/24 11:22 Time: 11:23 05/24/24 11:22 Patient unable to answer at this time (ie. confused, unrespo /Reproduction History /Reproductive History - email manager: /Reproductive Hx- email manager Hx Now No 05/24/24 11:22 Gestational Age (in weeks): EDC: Hx Hx Para Hx Section SAB No 05/24/24 11:22 Active Medications Active Medications: Current Medications Generic Name Dose Route Start Last Admin Trade Name Freq PRN Reason Stop Dose Admin Indocyanine Green 3.75 mg/ N/A 1.5 mls @ 999 mls/hr 06/04/24 09:50 IV 06/04/24 09:51 PREOP ONE PFSH Medical History Wears hearing aid Arthritis High cholesterol Shortness of breath on exertion History of Holter monitoring History of echocardiogram Hypertension Nausea Cholelithiasis Wears glasses Post-menopausal Bladder disease Gastric reflux Non-smoker History of edema Cardiology follow-up encounter History of stress test Osteoporosis Blind right eye Eldorado's disease Home Medications ?Medication ?Instructions ?Recorded ?Last Taken ?Type ibandronate 150 mg tablet 150 mg PO QMONTH 03/05/24 Un known History omeprazole 20 mg capsule,delayed 20 mg PO BID 03/05/24 Unknown History release rosuvastatin 5 mg tablet 5 mg PO QODAY 03/05/24 Unkno wn History ascorbic acid (vitamin C) 500 mg 500 mg PO DAILY 05/24 Unknown History tablet (C-500) cranberry 500 mg capsule 500 mg PO BID 05/24/24 Unkno wn History Allergy/AdvReac Type Severity Reaction Status Date / Time No Known Allergies Allergy Verified 05/24/24 11:19 Surgical History Hx of bladder repair surgery Hx of colonoscopy Hx of foot surgery History of blepharoplasty H/O carpal tunnel repair History of cardiac catheterization Hx of left cataract extraction History of strabismus surgery History of appendectomy Social History Smoking Status: Never smoker alcohol intake: never substance use type: does not use Review of Systems (Anesthesia) ROS Narrative System reviewed and no additional complaints, except as documented. 06/04/24903 <Electronically signed by Karson Perez MD > Date _ Karson Perez MD Cosigner Signature: Date CC: ~ Signed [facility] Work Phone: 1(106) 970-547103-10-2025 History and physical note [facility] Medical Records Department [address] [place] [address] History & Physical Exam 06/04/24947 MR#: [id number] Acct: [id number] Name: SUGAR COONEY Rep #:[id number] : 1940 84 From: Roberto Parker MD PCP: Dr. Catherine Magana, DO Status:[facility] Location: [place] [address] HPI - General General Date of Admission: 06/04/24 Date of Service: 06/04/24 Chief Complaint: Nausea; elective cholecystectomy HPI Narrative SUGAR COONEY, is a 84 F who presents for elective cholecystectomy. Patient has been having recurrent nausea issues for months. She was found to have gallstones. HIDA scan was normal. Nevertheless we suspect her symptoms may be biliary colic in nature. We discussed the details of the planned procedure and she wished to proceed. She is scheduled for robotic cholecystectomy today [facility] Medical History Wears hearing aid Arthritis High cholesterol Shortness of breath on exertion History of Holter monitoring History of echocardiogram Hypertension Nausea Cholelithiasis Wears glasses Post-menopausal Bladder disease Gastric reflux Non-smoker History of edema Cardiology follow-up encounter History of stress test Osteoporosis Blind right eye Eldorado's disease Home Medications ?Medication ?Instructions ?Recorded ?Last Taken ?Type ibandronate 150 mg tablet 150 mg PO QMONTH 03/05/24 Un known History omeprazole 20 mg capsule,delayed 20 mg PO BID 03/05/24 06/03/24 History release rosuvastatin 5 mg tablet 5 mg PO QODAY 03/05/24 Unkno wn History ascorbic acid (vitamin C) 500 mg 500 mg PO DAILY 05/24 Unknown History tablet (C-500) cranberry 500 mg capsule 500 mg PO BID 05/24/24 Unkno wn History Allergy/AdvReac Type Severity Reaction Status Date / Time No Known Allergies Allergy Verified 06/04/24 09:21 Surgical History Hx of bladder repair surgery Hx of colonoscopy Hx of foot surgery History of blepharoplasty H/O carpal tunnel repair History of cardiac catheterization Hx of left cataract extraction History of strabismus surgery History of appendectomy Social History Smoking Status: Never smoker alcohol intake: never substance use type: does not use Vital Signs Vital Signs Vital Signs: 06/04/24 09:29 06/04/24 09:29 Temperature 97.2 F L Temperature Source Temporal Pulse Rate 63 Respiratory Rate 16 Respiratory Pattern Normal Blood Pressure 163/66 H Blood Pressure Mean 98 Blood Pressure Source Monitor Blood Pressure Position Semi-Fowlers Blood Pressure Location Left Arm Pulse Ox 95 Oxygen Delivery Method Room Air Weight Weight: 173 lb Body Mass Index (BMI) 33.7 Physical Exam Const alert, oriented x3 and no apparent distress Assessment & Plan Assessment/Plan (1) Cholelithiasis: PLAN: Plan The patient is an 84-year-old female with persistent nausea and gallstones. I have offered her a laparoscopic/robotic cholecystectomy. We discussed the details of the planned procedure and she wishesto proceed. Surgery will begin shortly. 06/04/24 0949 Cosigner Signature (if applicable): CC: Dr. Catherine Magana DO; Dr. Roberto Parker MD~ Signed [facility]03-10-2025 [facility] Medical Records Department [address] [place] [address] History Physical Exam 06/04/24 0948 MR#: [id number] Acct: [id number] Name: SUGAR COONEY Rep #: [id number] : 1940 84 From: Roberto Parker MD PCP: Dr. Catherine Magana, DO Status:[facility] Location: [place] [address] HPI - General General Date of Admission: 06/04/24 Date of Service: 06/04/24 Chief Complaint: Nausea; elective cholecystectomy HPI Narrative SUGAR COONEY, is a 84 F who presents for elective cholecystectomy. Patient has been having recurrent nausea issues for months. She was found to have gallstones. HIDA scan was normal. Nevertheless we suspect her symptoms may be biliary colic in nature. We discussed the details of the planned procedure and she wished to proceed. She is scheduled for robotic cholecystectomy today [facility] Medical History Wears hearing aid Arthritis High cholesterol Shortness of breath on exertion History of Holter monitoring History of echocardiogram Hypertension Nausea Cholelithiasis Wears glasses Post-menopausal Bladder disease Gastric reflux Non-smoker History of edema Cardiology follow-up encounter History of stress test Osteoporosis Blind right eye Jose's disease Home Medications ???Medication ???Instructions ???Recorded ???Last Taken ???Type ibandronate 150 mg tablet 150 mg PO QMONTH 03/05/24 Unknown History omeprazole 20 mg capsule,delayed 20 mg PO BID 03/05/24 06/03/24 His tory release rosuvastatin 5 mg tablet 5 mg PO QODAY 03/05/24 Unknown His tory ascorbic acid (vitamin C) 500 mg 500 mg PO DAILY 05/24/24 Unknown H istory tablet (C-500) cranberry 500 mg capsule 500 mg PO BID 05/24/24 Unknown His tory Allergy/AdvReac Type Severity Reaction Status Date / Time No Known Allergies Allergy Verified 06/04/24 09:21 Surgical History Hx of bladder repair surgery Hx of colonoscopy Hx of foot surgery History of blepharoplasty H/O carpal tunnel repair History of cardiac catheterization Hx of left cataract extraction History of strabismus surgery History of appendectomy Social History Smoking Status: Never smoker alcohol intake: never substance use type: does not use Vital Signs Vital Signs Vital Signs: 06/04/24 09:29 06/04/24 09:29 Temperature 97.2 F L Temperature Source Temporal Pulse Rate 63 Respiratory Rate 16 Respiratory Pattern Normal Blood Pressure 163/66 H Blood Pressure Mean 98 Blood Pressure Source Monitor Blood Pressure Position Semi-Fowlers Blood Pressure Location Left Arm Pulse Ox 95 Oxygen Delivery Method Room Air Weight Weight: 173 lb Body Mass Index (BMI) 33.7 Physical Exam Const alert, oriented x3 and no apparent distress Assessment Plan Assessment/Plan (1) Cholelithiasis: PLAN: Plan The patient is an 84-year-old female with persistent nausea and gallstones. I have offered her a laparoscopic/robotic cholecystectomy. We discussed the details of the planned procedure and she wishes to proceed. Surgery will begin shortly. 06/04/24948 Cosigner Signature (if applicable): CC: Dr. Catherine Magana DO; Dr. Roberto Parker MD [facility]02-24-2025 Evaluation note* Diagnosis Onset Date Resolution Status Admit Date Nausea acute May 21, 2024 8:35am Cholelithiasis acute May 8:52am S/P cholecystectomy acute June 14, 2024 9:45am [facility] Work Phone: 1(909) 820-460712-09-2024 Evaluation note* Diagnosis Onset Date Resolution Status Admit Date Nausea acute March 05, 2024 1:30pm Nausea acute May 21, 2024 8:35am Cholelithiasis acute May 8:52am [facility] Work Phone: 1(928) 981-544407-28-2023 NoteHNO ID: [id number] Author: Annalise Sanchez RT(R) Service: Radiology Author [...] BY: RT Daniel(R) October 22, 2022 8:03 [facility]07-28-2023 NoteHNO ID: [id number] Author: Farzana Larsen APRN.[employer] Service: ? Author Type: Nurse Practitioner Type: Progress Notes Filed: 10/22/2022 8:33 AM Note Text: This note was created using Thinknumriter. Subjective Sugar Cooney is a 82 year [...] history is provided by the patient. No language teacher was used. 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 Meeks, benign skin rash [...] use: Yes Comment: socially (more content not included)...[facility] 10-22-2022 History of Present illness Narrative* Annalise Sanchez RT(R) - 10/22/2022 8:00 AM EDT Radiology Service Progress Note PATIENT NAME: Sugar Cooney DATE OF SERVICE: October 22, 2022 TIME: 8:03 AM PATIENT IDENTITY VERIFICATION COMPLETED USING TWO (2) IDENTIFIERS: Name and Date of confirmedby patient verbally. FALL SCREENING: Has the patient had 2 falls in the last year or 1 fall with injury or currently using an Ambulatory Assistive Device (Walker, Cane, Wheelchair, Crutches, etc.)? No PATIENT GENDER DATA: Female. status: : No status: NO. PATIENT RELEVANT IMPLANT DATA REVIEWED: Not Applicable RADIOLOGY DEPARTMENT: General X-ray: Exam(s) Completed: Upper Extremity X- Ray(s): Hand, right PERIPHERAL IV DATA: Not applicable SIGNED BY: RT Daniel(R) October 22, 2022 8:03 AM documented in [facility] encounter[facility] [place] History of Present illness Narrative* Farzana Larsen APRN.[employer] - 10/22/2022 7:20 AM EDT Images from the original note were not included. This note was created using Thinknumriter. Subjective Sugar Cooney is a 82 year [...] history is provided by the patient. No language teacher was used. Hand Pain Pain location: right thumb/right hand. This is a new problem. The current episode started in the past 7 days. There has been no history of extremity trauma. The problem occurs constantly. The problemhas been gradually worsening. The quality of the pain is described as sharp and aching. The pain isat a severity of 6/10. The pain is moderate. 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 Constantino, benign skin rash chest and back Herpes [...] with PCP if sx persist. Farzana Larsen APRN.[employer] documented in this encounterSelect [facility] [place]07-[facility]-2023 NoteHNO ID: [id number] Author: Maria Dolores Garcia PA-C Service: ? Author Type: Physician Milling Operator Type: Progress Notes Filed: 10/18/2022 2:20 PM [...] Pulses: Normal. Health Ma (more content not included)...[facility]06-15-2023 Procedure [facility]03-24-2023 NoteHNO ID: [id number] Author: Virgilio Rojas MD Service: ? 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 Meeks, benign skin rash [...] - did discuss st (more content not included)...[facility] 06-18-2022 History of Present illness Narrative* Virgilio Rojas MD - 06/18/2022 12:00 PM EDT Chief Complaint No chief complaint on file. 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 Meeks, benign skin rash [...] September Virgilio Rojas MD documented in this encounterSelect [facility]01-23-2023 NoteHNO ID: [id number] Author: Virgilio Rojas MD Service: ? Author [...] HX Left 07/24/2018 COLONOSCOP W/ OR W/O [facility] SPEC 08/16/2007 repeat 12 ys COLONOSCOP W/ [...] file Gets together: Not on file Attends gnosticism service: Not on file Active member of [...] 72 Resp 16 Ht 153.7 cm (5' 0.5) Wt 81.6 kg (180 lb) BMI 34.58 kg/m? Alert and oriented X 3: YES Body mass index is 34.58 kg/m?. See below ASSESSMENT/PLAN: 82 year old female The following prevention plan was discussed during the office visit and provided to the patient: See below Virgilio Rojas MD (more content not included)...[facility] 04-19-2022 Instructions* Patient Instructions* Virgilio Rojas MD - 04/19/2022 1:31 PM EST Please bring in copies of living will and durable power of barge pilot for health care. Please get labs and urine test done on or after 10/08/2022 prior to your next visit. documented in this encounterSelect [facility] [place]01-23-2023 History of Present illness Narrative* Virgilio Rojas MD - 04/19/2022 1:20 PM EST Medicare Yearly Visit Medical B eligibilty date [...] HX Left 07/24/2018 COLONOSCOP W/ OR W/O [facility] SPEC 08/16/2007 repeat 12 ys COLONOSCOP W/ [...] file Gets together: Not on file Attends gnosticism service: Not on file Active member of [...] with patient, and I recommended no further interventionat this time. Functional Ability/Safety Screen 1. Was the patient's timed Up and Go test unsteady or longer than 30 seconds? Yes 2. Does the patient need help with the phone, transportation, shopping,preparing meals, housework, laundry, medications or managing money? No 3. Does your home have rugs in the hallway, lack of grab bars in the bathroom, lack of handrails onthe stairs or have poor lighting? No Hearing Evaluation: normal PHYSICAL EXAM BP 120/80 (BP Site: Left Arm, BP Position: Sitting, BP Cuff Size: Large Adult) Pulse 72 Resp 16 Ht 153.7 cm (5' 0.5) Wt 81.6 kg (180 lb) BMI 34.58 [...] 72 Resp 16 Ht 153.7 cm (5' 0.5) Wt 81.6 kg (180 lb) BMI 34.58 kg/m Last 5 Encounter Wt Readings: Date: Wt: 04/19/2022 81.6 kg (180 lb) 09/16/2021 79.4 kg (175 lb) 08/27/2021 80.6 kg (177 lb 9.6 oz) 06/22/2021 83.5 kg (184 lb) 04/17/2021 83.5 kg (184 lb) General Appearance: Well appearing, alert, in no acute distress, well-hydrated, well nourished. andObese. Skin: Skin color, texture, turgor normal, no [...] symmetric. Sensation to light touch and crainal nerves2-12 intact.. Health Maintenance List DTAP,TDAP,TD(2 - Td [...] Lymph 1.00 - 4.00 k/uL 2.23 3.16 Lajas% % 7.0 6.5 Abs Lajas <0.87 k/uL 0.40 0.43 Eosin% % 2.3 [...] Cholesterol, Nonfasting <200 mg/dL Test sent to [facility]. Triglycerides, Nonfasting <150 mg/dL Test sent to [facility]. HDL Cholesterol, Nonfasting >39 mg/dL Test sent to [facility]. LDL Cholesterol, Nonfasting <100 mg/dL Test sent to [facility]. Non HDL Cholesterol, Nonfasting <130 mg/dL Test sent to [facility]. VLDL Cholesterol, Nonfasting <30 mg/dL Test sent to [facility]. Total Chol/HDL Ratio, Nonfasting <5.10 mg/dL Test sent to [facility]. LDL/HDL Ratio, Nonfasting <2.54 mg/dL Test sent to [facility]. Hemoglobin A1C 4.3 - 5.6 % 5.3 Estimated Average Glucose mg/dL 105 Vitamin B12 232 - 1,245 pg/mL 507 Magnesium 1.7 - 2.3 mg/dL 2.1 A/P ASSESSMENT/PLAN: 1. Medicare annual wellness visit, subsequent - ICD9: V70.0, ICD10: Z00.00 (primary diagnosis) - Counseled on healthy diet and regular exercise - Calcium intake with supplements or by diet of 1000 mg/day for under 50, 1200- 1500 mg/day for 50+ - Discussed need and [...] can stop the evening omeprazole and change toPepcid 40 mg QHS. If symptoms no better [...] which included preparing to see the patient, [id number] patient care, completing clinical documentation, performing a medically appropriate examination, counseling and educating the patient/family/caregiver and ordering medications, tests, or procedures. Virgilio Rojas MD documented in this encounterSelect [facility] [place]10-21-2022 Miscellaneous Notes* Telephone Encounter - Virgilio Rojas MD - 01/15/2022 6:17 PM EDT The following approved medication requests have been transmitted electronically. Requested Prescriptions Signed Prescriptions Disp Refills omeprazole (PRILOSEC) 40 mg capsule 30 capsule 5 Sig: Take 1 capsule by mouth once daily. 1/2 hr before meal. Authorizing Provider: VIRGILIO ROJAS MD * Telephone Encounter - Yaa Muñoz MA - 01/15/2022 2:50 PM EDT Patient has been identified by name and date of : Yes Requested Prescriptions Pending Prescriptions Disp Refills omeprazole (PRILOSEC) 40 mg capsule 30 capsule 5 Sig: Take 1 capsule by mouth once daily. 1/2 hr before meal. RX INSTRUCTIONS: Patient aware RX will be sent to pharmacy. No need to notify patient. Yaa Muñoz MA Saul: 08/2021 Nov: 03/2022 Last refill; 05/2021 * Telephone Encounter - Courtney De La Garza - 01/15/2022 9:38 AM EDT Patient has been identified by name and [...] Not applicable Please advise. Thank you. 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 Meeks, benign skin rash [...] prior Virgilio Rojas MD documented in this encounterSelect [facility] [place]06-02-2022 History of Present illness Narrative* Marilyn Rubi APRN.DIE [employer] - 08/27/2021 8:38 AM EDT Images from the original note were not [...] illness Marilyn Rubi APRN.CNP documented in this encounterSelect [facility] [place]06-02-2022 Instructions* Patient Instructions* Marilyn Rubi APRN.CNP - 08/27/2021 8:35 AM [...] redness, drainage or pus). documented in this encounterSelect [facility]ty [facility] [place]05-03-2022 Miscellaneous Notes* Telephone Encounter - Irina Hernandez Pss - 07/28/2021 9:31 AM EDT Pharmacy verified in Epic Patient has been identified by name and [...] 83.5 kg (184 lb) Please advise. Irina De La Rosa documented in this encounterSelect [facility] [place]03-28-2022 History of Present illness Narrative* Maria Dolores Garcia PA-C - 06/22/2021 7:46 AM EDT Chief Complaint Patient presents with: ER F/U: [facility] elevated heart rate HPI Sugar Cooney is a 81 year old female who presents here today for ER Follow Up.. On 06/14 patient noticed that while at [facility] she started to feel like her heart [...] by 1 episode of vomiting on 06/19. Leopold better 06/20. ER work up benign. EKG [...] Maria Dolores Garcia PA-C documented in this encounter[address]05-2016 History of Past illness Narrative* Problem Noted Date Resolved Date Urinary complications 12/31/2015 documented as of this encounter (statuses as of 06/22/2021) [address]05[address]2016 History of Past illness Narrative* Problem Noted Date Resolved Date Urinary complications 12/31/2015 documented as of this encounter (statuses as of 07/28/2021) [address]05-2016 History of Past illness Narrative* Problem Noted Date Resolved Date Urinary complications 12/31/2015 documented as of this encounter (statuses as of 08/27/2021) [address]05[address]2016 History of Past illness Narrative* Problem Noted Date Resolved Date Urinary complications 12/31/2015 documented as of this encounter (statuses as of 09/17/2021) [address]05[address]2016 History of Past illness Narrative* Problem Noted Date Resolved Date Urinary complications 12/31/2015 documented as of this encounter (statuses as of 01/15/2022) [address] History of Past illness Narrative* Problem Noted Date Resolved Date Urinary complications 12/31/2015 documented as of this encounter (statuses as of 04/20/2022) [address] History of Past illness Narrative* Problem Noted Date Resolved Date Urinary complications 12/31/2015 documented as of this encounter (statuses as of 06/18/2022) [address] History of Past illness Narrative* Problem Noted Date Diagnosed Date Resolved Date Urinary complications 2015 documented as of this encounter (statuses as of 10/22/2022) [facility] Must[facility] September 09, 2022 7:54am Note Date/Time September 09, 2022 7:54 am [facility] Medical Records Department [address] [place] [address] Instructions for Home/Discharge Instructions 09/09/22 0754 MR#: [id number] Acct: [id number] Name: SUGAR COONEY Rep #:[id number] : 1940 82 From: Nathanael nichols DO PCP: Dr. Virgilio Rojas MD Status:REG [facility] Discharge Instructions Follow Up Care Test Results: Test results from this visit will be discussed in further detail at your follow- up appointment, if applicable. Discharge Plan Admission Primary Reason for Your Visit: Left carpal tunnel release Attending Provider: Nathanael Mustafa Primary Care Provider: Virgilio Rojas Instructions Additional Instructions / Restrictions: Follow preprinted instructions from your surgeons office Discharge Orders/Prescriptions Prescriptions: No Action Multiple Vitamin-Minerals 1 EACH tablet 1 ea PO DAILY cholecalciferol (vitamin D3) [Vitamin D3] 2,000 UNIT capsule 2,000 unit PO BID cranberry fruit 400 MG tablet 800 mg PO BID calcium carbonate-vitamin D3 [Caltrate with Vitamin D3] 1 EACH tablet 1 ea PO BID ascorbic acid (vitamin C) 500 MG capsule 1,000 mg PO BID omeprazole 40 mg Capsule,Delayed Release(Dr/Ec) 40 mg PO DAILY Referrals / Follow Up: Virgilio Rojas MD [Primary Care Provider] - Nathanael uMstafa DO [Med Staff - Active Staff] - Disposition Disposition (needs filled in before D/C Order can be placed): Home, Self Care 09/09/22 5721<Electronically signed by Nathanael Mustafa DO>Nathanael Mustafa DO CC: Dr. Virgilio Rojas MD ~ Signed [facility] Work Phone: evalukocro noteNo assessment information available [facility] Work Phone: evaluation note* Diagnosis Palpitations- Primary Nonrheumatic aortic valve insufficiency Aortic valve disorders GERD without esophagitis Esophageal reflux [facility]* Diagnosis Allergic rash present on examination- Primary documented in this encounter [facility] note* Diagnosis Nonrheumatic aortic valve insufficiency- Primary Aortic valve disorders GERD without esophagitis Esophageal reflux Edema, unspecified type Herpes simplex infection of genitourinary system Medication management Encounter for long-term (current) use of other medications Elevated blood sugar Other abnormal glucose [facility] Diagnosis Medicare annual wellness visit, subsequent- Primary Routine general medical examination at a health care facility GERD without esophagitis Esophageal reflux Elevated blood sugar Other abnormal glucose Nonrheumatic aortic valve insufficiency Aortic valve disorders Edema, unspecified type Diverticulosis of colon Diverticulosis of colon (without mention of hemorrhage) Herpes simplex infection of genitourinary system Advance directive discussed with patient Other specified counseling [facility] Diagnosis GERD without esophagitis- Primary Esophageal reflux documented in this [facility]* Diagnosis Swelling of right hand- Primary Thumb pain, right [facility]* Diagnosis Swelling of right hand Thumb pain, right [facility] Discharge instructions Additional Instructions Follow preprinted instructions from your surgeons office Implant Used?: [facility] Work Phone: Hospital Discharge instructions Additional Instructions Follow [facility]printed [facility]: Instructions* Name Dates Details Patient Instructions Indication:Benign essential [...] RADEX FINGR MINIMUM 2 VIEWS Farzana Larsen APRN.CNP [address] [place] [address] Xr Imaging Referral ID Status Reason Start Date Expiration Date V isits Requested Visits Authorized [id number] Closed Auto-Generate d Referral 10/22/2022 11/21/2023 1 1 * Diagnostic Procedure Only (Urgent) - Closed Specialty Diagnoses / Procedures Referred By Contac t Referred To Contact XR IMAGING Diagnoses Swelling of right hand Procedures XR HAND GENERAL 3V PA/LAT/OBL RIGHT RADEX HAND MINIMUM 3 VIEWS Farzana Larsen APRN.[employer] [address] [place] [address] Xr Imaging Referral ID Status Reason Start Date Expiration Date V isits Requested Visits Authorized [id number] Closed Auto-Generate d Referral 10/22/2022 11/21/2023 1 1 [facility] for referral (narrative)* Diagnostic Procedure Only (Urgent) - Closed Specialty Diagnoses / Procedures Referred By Contac t Referred To Contact XR IMAGING Diagnoses Swelling of right hand Procedures XR HAND GENERAL 3V PA/LAT/OBL RIGHT RADEX HAND MINIMUM 3 VIEWS Farzana Larsen APRN.CNP [address] [place] [address] [place] [address] Referral ID Status Reason Start Date Expiration Date V isits Requested Visits Authorized [id number] Closed Auto-Generate d Referral 10/22/2022 11/21/2023 1 1 [facility] (n[facility]ative)No reason for referral information availableWSt. Francis [facility] Work Phone: Reason for visit Narrative* Diagnostic Procedure Only (Urgent) - Closed Specialty Diagnoses / Procedures Referred By Contac t Referred To Contact XR IMAGING Diagnoses Swelling of right hand Procedures XR HAND GENERAL 3V PA/LAT/OBL RIGHT RADEX HAND MINIMUM 3 VIEWS Farzana Larsen, [employer] [address] [place] [address] [place] [address] Referral ID Status Reason Start Date Expiration Date V isits Requested Visits Authorized [id number] Closed Auto-Generate d Referral 10/22/2022 11/21/2023 1 1 [facility] Summary Purpose Family History No Family History Records FoundUnknown Family Member Name Dates Details Brother 2 Comments:DM Status:Active Father Comments:CVA Status:Active Mother Comments:-Lymphoma, In stabl e health Status:Active Advance Directives No Advanced Directives Records Found Advance Directive Response Recorded Date/ Time Living Will Yes June 14, 2021 2:50pm Power of [employer] Teacher Yes June 14 2:50pm Documents on File Type Date Recorded Patient Machine Sneller Expl anation Advance Directive(s) 12/29/2017 8:25 AM Advance Directive Response Recorded Date/ Time Living Will Yes February 16, 022 1:32pm Power of [employer] Human[employer] Teacher No February 16, 2022 1:32pm Documents on File Type Date Recorded Patient Machine Sneller Expl anation Advance Directive(s) 05/10/2022 9:16 AM Advance Directive Response Recorded Date/ Time Living Will Yes September 03, 2022 8 :44am Power of [employer] Teacher Yes September 03, 2022 8:44am Name of Medical Power of [employer] Teacher FAMILY September 03, 2022 8:44am Documents on File Type Date Recorded Patient Machine Sneller Expl anation Advance Directive(s) 05/10/2022 9:16 AM Advance Directive Response Recorded Date/ Time Living Will Yes September 03, 2022 7 :44am Power of [employer] Human[employer] Teacher Yes September 03, 2022 7:44am Advance Directive Response Recorded Date/ Time Living Will Yes September 03, 2022 8 :44am Power of [employer] Teacher Yes September 03, 2022 8:44am Advance Directive Response Recorded Date/ Time Living Will Yes May 24 12:22pm Power of [employer] Humanities Teacher Yes May 24, 2024 12:22pm Name of Medical Power of [employer] Teacher DAUGHTER May 24, 2024 12:22pm Advance Directive Response Recorded Date/ Time Living Will Yes May 24 12:22pm Do you have a Healthcare Power of [employer] Humanities Teacher? Yes May 24, 2024 12:22pm Name of Medical Power of [employer] Human[employer] Teacher DAUGHTER May 24, 2024 12:22pm Chief Complaint and Reason for Visit Chief Complaint CHEST PAIN Chief Complaint rt ring finger grecia er release Chief Complaint LEFT CARPAL TUNNEL R ELEASE Chief Complaint SCREENING SCREENING Chief Complaint SCREENING SCREENING AORTIC INSUFFICIENCY Chief Complaint Admit Date NAUSEA February 21, 2024 7:45am GALLSTONES March 05, 2024 1 :30pm CHOLELITHIASIS March 29, 2024 8: 42am SCREENING April 02, 2024 8: 46am ABNORMAL BI April 04, 2024 8: 32am HIDA SCAN RESULTS May 21, 2024 8:35am Robotic Cholecystectomy w/grams June 042024 8:52am Robotic Cholecystectomy w/grams June 042024 9:48am Reason for Visit Admit Date Nausea March 05, 2024 1 :30pm Nausea May 21, 2024 8:35am Cholelithiasis June 04, 2024 8:5 2am Chief Complaint Admit Date HIDA SCAN RESULTS May 21, 2024 8:35am Robotic Cholecystectomy w/grams June 042024 8:52am Robotic Cholecystectomy w/grams June 042024 9:48am GALLBLADDER 3-10 June 14, 2024 9:4 5am ABDOMINAL PAIN September 11, 2024 5:22 pm Reason for Visit Admit Date Nausea May 21, 2024 8:35am Cholelithiasis June 04, 2024 8:5 2am S/P cholecystectomy June 14, 2024 9:4 5am Additional Source Comments INFORMATION SOURCE (unrecogn ized section and content) DATE CREATED AUTHOR 07/05/2020 [facility] DATE CREATED AUTHOR AUTHOR'S ORGANIZ ATION 10/22/2022 [facility] DATE CREATED AUTHOR AUTHOR'S ORGANIZ ATION 09/19/2024 [facility] Goals (unrecognized section and content) Goals may be documented in a n alternate sectionGoals may be documented in an alternate sectionGoals may be documented in an alternate sectionGoals may be documented in an alternate section Source Comments (unrecognize d section and content) In the event this informatio n is protected by the Federal Confidentiality of Alcohol and Drug Abuse Patient Records regulations: The Federal rules restrict any use of the information to criminally investigate or prosecute any alcohol or drug abuse patient.[facility] the event this information is protected by the Federal Confidentiality of Alcohol and Drug Abuse Patient Records regulations: The Federal rules restrict any use of the information to criminally investigate or prosecute any alcohol or drug abuse patient.[facility] the event this information is protected by the Federal Confidentiality of Alcohol and Drug Abuse Patient Records regulations: The Federal rules restrict any use of the information to criminally investigate or prosecute any alcohol or drug abuse patient.[facility] the event this information is protected by the Federal Confidentiality of Alcohol and Drug Abuse Patient Records regulations: The Federal rules restrict any use of the information to criminally investigate or prosecute any alcohol or drug abuse patient.[facility] the event this information is protected by the Federal Confidentiality of Alcohol and Drug Abuse Patient Records regulations: The Federal rules restrict any use of the information to criminally investigate or prosecute any alcohol or drug abuse patient.[facility] the event this information is protected by the Federal Confidentiality of Alcohol and Drug Abuse Patient Records regulations: The Federal rules restrict any use of the information to criminally investigate or prosecute any alcohol or drug abuse patient.[facility] the event this information is protected by the Federal Confidentiality of Alcohol and Drug Abuse Patient Records regulations: The Federal rules restrict any use of the information to criminally investigate or prosecute any alcohol or drug abuse patient.[facility] the event this information is protected by the Federal Confidentiality of Alcohol and Drug Abuse Patient Records regulations: The Federal rules restrict any use of the information to criminally investigate or prosecute any alcohol or drug abuse patient.[facility] the event this information is protected by the Federal Confidentiality of Alcohol and Drug Abuse Patient Records regulations: The Federal rules restrict any use of the information to criminally investigate or prosecute any alcohol or drug abuse patient.[facility] Reason for Visit (unrecogniz ed section and content) Reason Comments ER F/U [facility] elevated heart r ate Reason Onset Date Comments Refill Request 07/28/2021 Reason Comments Acute Visit possible shingles x 1week Reason Comments F/U 6 months Reason Onset Date Comments Refill Request 01/15/2022 Reason Comments Medicare Wellness Exam Reason Comments Recheck 2 months GERD medica tion Reason Comments Hand Pain right hand pain and swelling x 5 days, denies injury Care Teams (unrecognized sec tion and content) House Servant Relationship Specialty Start Date End Date Virgilio Rojas MD [address] [place] [address] PCP - General Family Practice 12/01/16 House Servant Relationship Specialty Start Date End Date Virgilio Rojas MD [address] [place] [address] PCP - General Family Practice 12/01/16 House Servant Relationship Specialty Start Date End Date Virgilio Rojas MD [address], [place] [address] PCP - General Family Practice 12/01/16 House Servant Relationship Specialty Start Date End Date Virgilio Rojas MD [address] [place] [address] PCP - General Family Practice 12/01/16 House Servant Relationship Specialty Start Date End Date Virgilio Rojas MD [address] [place] [address] PCP - General Family Medicine 12/01/16 House Servant Relationship Specialty Start Date End Date Virgilio Rojas MD [address], [place] [address] PCP - General Family Medicine 12/01/16 Team Status: Active Member Role Status Dates Dr. Virgilio Rojas MD Family Provider Active Dr. Virgilio Rojas MD Primary Care Provider Active Team Status: Inactive Member Role Status Dates Dr. Virgilio Rojas MD Primary Care Provider Active Dr. Nathanael Mustafa , Attending Provider, Referrin g Provider Active House Servant Relationship Specialty Start Date End Date Virgilio Rojas MD [address], [place] [address] PCP - General Family Medicine 12/01/16 Team Status: Active Member Role Status Dates Dr. Virgilio Rojas MD Family Provider Active Dr. Catherine Magana , DO Primary Care Provider Active Team Status: Inactive Member Role Status Dates Dr. Catherine Magana , DO Primary Care Provide r, Attending Provider, Referring Provider Active Team Status: Active Member Role Status Dates Dr. Catherine Magana , DO Primary Care Provide r, Attending Provider, Referring Provider Active Team Status: Active Member Role Status Dates Dr. Catherine Magana , DO Primary Care Provider Active Dr. Camryn Argueta MD Attending Provider Activ e House Servant Relationship Specialty Start Date End Date Virgilio Rojas MD [address] [place] [address] PCP - General Family Medicine 12/01/16 04/28/23 Team Status: Active Member Role Status Dates Dr. Catherine Magana DO Primary Care Provider Active Team Status: Inactive Member Role Status Dates Dr. Catherine Magana DO Primary Care Provider Active Start: February 21, 2024 End: February 21, 2024 Dr. Catherine Magana DO Attending Provider Active St art: February 21, 2024 End: February 21, 2024 Dr. Catherine Magana DO Referring Provider Active St art: February 21, 2024 End: February 21, 2024 Team Status: Inactive Member Role Status Dates Dr. Catherine Magana DO Primary Care Provider Active Start: March 05, 2024 End: March 05, 2024 Dr. Catherine Magana DO Referring Provider Active St art: March 05, 2024 End: March 05, 2024 Dr. Roberto Parker MD Attending Provider Active Start: March 05, 2024 End: March 05, 2024 Team Status: Inactive Member Role Status Dates Dr. Catherine Magana DO Primary Care Provider Active Start: March 29, 2024 End: March 29, 2024 Dr. Roberto Parker MD Attending Provider Active Start: March 29, 2024 End: March 29, 2024 Dr. Roberto Parker MD Referring Provider Active Start: March 29, 2024 End: March 29, 2024 Team Status: Inactive Member Role Status Dates Dr. Catherine Magana DO Primary Care Provider Active Start: April 02, 2024 End: April 02, 2024 Dr. Catherine Magana DO Attending Provider Active St art: April 02, 2024 End: April 02, 2024 Dr. Catherine Magana DO Referring Provider Active St art: April 02, 2024 End: April 02, 2024 Team Status: Inactive Member Role Status Dates Dr. Catherine Magana DO Primary Care Provider Active Start: April 04, 2024 End: April 04, 2024 Dr. Catherine Magana DO Attending Provider Active St art: April 04, 2024 End: April 04, 2024 Dr. Catherine Magana DO Referring Provider Active St art: April 04, 2024 End: April 04, 2024 Team Status: Inactive Member Role Status Dates Dr. Catherine Magana DO Primary Care Provider Active Start: May 21, 2024 End: May 21, 2024 Dr. Catherine Magana DO Referring Provider Active St art: May 21, 2024 End: May 21, 2024 Dr. Roberto Parker MD Attending Provider Active Start: May 21, 2024 End: May 21, 2024 Team Status: Inactive Member Role Status Dates Dr. Catherine Magana DO Primary Care Provider Active Start: June 04, 2024 End: June 04, 2024 Dr. Roberto Parker MD Attending Provider Active Start: June 04, 2024 End: June 04, 2024 Dr. Roberto Parker MD Referring Provider Active Start: June 04, 2024 End: June 04, 2024 Team Status: Active Member Role Status Dates Dr. Catherine Magana DO Primary Care Provider Active Start: June 04, 2024 Dr. Roberto Parker MD Attending Provider Active Start: June 04, 2024 Dr. Roberto Parker MD Referring Provider Active Start: June 04, 2024 Dr. Roberto Parker MD Other Provider Active St art: June 04, 2024 Team Status: Inactive Member Role Status Dates Dr. Catherine Magana DO Primary Care Provider Active Start: June 14, 2024 End: June 14, 2024 Dr. Catherine Magana DO Referring Provider Active St art: June 14, 2024 End: June 14, 2024 Krystyna LOPEZ PA-C Attending Provider Active Start: June 14, 2024 End: June 14, 2024 Team Status: Inactive Member Role Status Dates Dr. Catherine Magana DO Primary Care Provider Active Start: September 11, 2024 End: September 11, 2024 Dr. Catherine Magana DO Attending Provider Active St art: September 11, 2024 End: September 11, 2024 Dr. Catherine Magana DO Referring Provider Active St art: September 11, 2024 End: September 11, 2024 FOR RECORDS PERTAINING TO PATIENTS WHO ARE [...] BE BASED ON THE PRIMARY CLINICAL RECORDS. [facility] provides no warranty or guarantee of the accuracy or completeness of information in this document.
== END | disposition home or self-care (01) ==
LOC: CVS 12:52
PROVIDERS: PCP Internal Medicine; Referring Provider Internal Medicine Pulmonary Disease; Visit Provider Internal Medicine Pulmonary Disease
DX: I27.0 Primary pulmonary hypertension (principal)
CPT/HCPCS: 93306

== ENCOUNTER → 2024-11-19 | Outpatient (CLI) | payer MEDICARE, SELFPAY ==
--- NOTE | 2024-11-19 12:40 | NM_ITS ---
PROCEDURE: GASTRIC EMPTYING STUDY 11/19/2024 REASON FOR EXAM: NAUSEA TECHNIQUE: The patient ingested a standard meal of oatmeal, radiopharmaceutical and water. There was no vomiting postprandially. Anterior and posterior planar images of the upper abdomen were obtained for 1 minute immediately following the meal at 1h, 2h and 4h if more than 10% of the activity persisted within the stomach. Regions of interest were drawn, and a geometric mean was used to calculate a [id number]. RADIOPHARMACEUTICAL: Sulfur colloid DOSE 1.1mCi FINDINGS: Percent activity remaining in stomach: 1 hour 16 % (normal 37-90%) NM/Gastric Emptying Study IMPRESSION: Normal gastric emptying. Reading Location: [facility]
== END | disposition home or self-care (01) ==
LOC: NM 12:39
PROVIDERS: PCP Internal Medicine; Referring Provider Internal Medicine Gastroenterology; Visit Provider Internal Medicine Gastroenterology
DX: R11.0 Nausea (principal)
CPT/HCPCS: 78264; A9541

== ENCOUNTER 2024-12-06 07:12 | Day surgery (SDC) | payer MEDICARE, SELFPAY ==
--- NOTE | 2024-12-04 14:55 | PAT.ANESEVAL ---
Pre-Assessment Diagnosis/Proposed Procedure Planned Operative Procedure(s): EGD Anesthesia History Anesthesia History - product design engineer: Anesthesia History - product design engineer Hx Hospitalization No 12/04/24 14:26 Any Problems With Anesthesia No 12/04/24 14:26 Cholinesterase deficiency No 12/04/24 14:26 You/Your Family Experience No 12/04/24 14:26 fever (hyperthermia) with Relationship Recent Exposure to Contagious No 06/04/24 09:29 Disease Does patient have nerve No 12/04/24 14:26 stimulator Patient instructed to have device shut off --Does patient have Pacemaker or ICD? When Was Last Pacemaker Check QUESTION #4 FULL TEXT: You/Your Family Experience fever (hyperthermia) with Anesthesia Last Oral Intake Last Oral intake: Last Oral Intake NPO since Meds taken in AM with sips of water? Meds patient instructed to take am of surgery PONV PONV - product design engineer: PONV - product design engineer Female Yes 12/04/24 14:26 HX of Motion Sickness No 12/04/24 14:26 HX of N/V After Surgery No 12/04/24 14:26 Non-Smoker Yes 12/04/24 14:26 Duration of Surgery greater No 12/04/24 14:26 than 60 minutes Number of Risk Factors 2 12/04/24 14:26 PONV Score Moderate Risk 12/04/24 14:26 Height & Weight Height & Weight: Anesthesia: Height & Weight Height 5 ft 06/04/24 09:29 Respiratory Assessment Respiratory Assessment - product design engineer: Respiratory Tract Infection Hx - product design engineer Hx Respiratory Tract Infection No 12/04/24 14:26 STOP Sleep Apnea STOP Sleep Apnea - product design engineer: STOP Sleep Apnea - product design engineer Hx Hypertension No 12/04/24 14:26 Hx Sleep Apnea No 12/04/24 14:26 CPAP BIPAP Do you snore loudly (louder No 12/04/24 14:26 than talking or can be heard Do you often feel tired/ No 12/04/24 14:26 fatigued/ sleepy during daytime? Has anyone observed you stop No 12/04/24 14:26 breathing during sleep? STOP Results Negative 12/04/24 14:26 QUESTION #5 FULL TEXT : Do you snore loudly (louder than talking or can be heard through closed doors)? 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 Specify any problems Hx of Preganancy in last 3 No 12/04/24 14:26 Months Nurse Filling Out Transfusion [facility] 12/04/24 14:26 & Questions: Date: 12/04/24 12/04/24 14:26 Time: 14:28 12/04/24 14:26 Patient unable to answer at this time (ie. confused, unrespo /Reproduction History /Reproductive History - product design engineer: /Reproductive Hx- product design engineer Hx Now No 12/04/24 14:26 Gestational Age (in weeks): EDC: Hx Hx Para Hx Section SAB No 12/04/24 14:26 [facility] Medical History (Updated 12/04/24 @ 14:36 by Ale uPga) Easy bruising Wears hearing aid Arthritis High cholesterol Shortness of breath on exertion History of Holter monitoring History of echocardiogram Hypertension Nausea Cholelithiasis Wears glasses Post-menopausal Bladder disease Gastric reflux Non-smoker History of edema Cardiology follow-up encounter History of stress test Osteoporosis Blind right eye Poplar's disease Home Medications ?Medication ?Instructions ?Recorded ?Last Taken ?Type omeprazole 20 mg capsule,delayed 20 mg PO BID 03/05/24 06/03/24 History release rosuvastatin 5 mg tablet 5 mg PO QODAY 03/05/24 Unknown History ascorbic acid (vitamin C) 500 mg 500 mg PO BID 05/24/24 Unknown History tablet (C-500) valacyclovir 500 mg tablet 500 mg PO QDAY PRN HERPES 10/30/24 Unknown History CRANBERRY BENEFITS 400 mg PO BID 12/04/24 Unknown History cholecalciferol (vitamin D3) 25 25 mcg PO .QOD 09/09/25 Unknown History mcg (1,000 unit) capsule (Vitamin D3) Allergy/AdvReac Type Severity Reaction Status Date / Time No Known Allergies Allergy Verified 12/04/24 14:22 Surgical History (Updated 06/14/24 @ 09:51 by Sugar White) S/P cholecystectomy Hx of bladder repair surgery Hx of colonoscopy Hx of foot surgery History of blepharoplasty H/O carpal tunnel repair History of cardiac catheterization Hx of left cataract extraction History of strabismus surgery History of appendectomy Social History Smoking Status: Never smoker alcohol intake: never substance use type: does not use Audit: Pertinent Findings Pertinent Findings EKG Perinent findings: June 01, 2024. Normal sinus rhythm. LVH. Cannot rule out anterior infarct, age undetermined. Stress test pertinent findings: September 14, 2023. EF is 67%. No areas of reversibility are noted to suggest ischemia. No previous infarct. Echo (EF%) pertinent findings: September 19, 2024. EF is 65%. PASP is 33 mmHg. No aortic stenosis noted. Additional pertinent findings: October 09, 2020. 28-day event monitor. Baseline rhythm was sinus tachycardia with artifact heart rate of 102 bpm. There were only 6 stable events during the time period. All 6 events occurred during sinus rhythm or sinus tachycardia. Recommendation Anesthesia Recommendation Anesthesia recommendation: OPTIMIZED for anesthesia
[2024-12-06] VITALS (8 sets, daily range): BP systolic 113–129; BP diastolic 46–74; PULSE 60–72; RESP 14–18; TEMP 36.3–36.6; O2SAT 94–98; BMI 33.7
--- OUTSIDE RECORDS SUMMARY | 2024-12-06 07:25 | XMS RPT_ITS | CCD ---
Author Organization [facility]form [facility] Care Team Providers Care Packager Hand Name Role Phone Yensho CELL BIOLOGY SCIENTIST, Rossy A Unavailable Unavailab le Yensho CELL BIOLOGY SCIENTIST, Rossy A Unavailable Unavailab Rekha Singh Unavailable Unavailable Roberto Ball Unavailable [phone] Virgilio Rojas MD Primary Care Provider Virgilio Rojas MD Primary Care Provider Virgilio Rojas MD Primary Care Provider VIRGILIO ROJAS Primary Care Unavailable VIRGILIO ROJAS [...] Padmaja De La Garza MD Unavailable Marcel Landis Unavailable Rich AWAN, Gail Leach Unavailable Unavailable Reinaldo CELL BIOLOGY SCIENTIST, Laurence Unavailable Unavailable Fast DO, Catherine A Unavailable Arias JARRETT Tabitha Unavailable Unavailable Unavailable Unavailable Chino DO, Catherine A Unavailable Dr. Catherine Magana Primary Care Provider Dr. Camryn Argueta Attending Provider [phone] Carl MO, Virgilio Lou Primary Care Provider Fast DO, Dr. Alexander Primary Care Provider [phone] Fast DO, Dr. Alexander Attending Provider [phone] Fast DO, Dr. Alexander Referring Provider [phone] Elena MO, Dr. Roberto Lou Attending Provider Elena MO, Dr. Roberto Lou Referring Provider Elena MO, Dr. Roberto Lou Other Provider Fast DO, Dr. Alexander Primary Care Provider [phone] Fast DO, Dr. Alexander Referring Provider [phone] Elena MO, Dr. Roberto Lou Attending Provider Elena MO, Dr. Roberto Lou Referring Provider Krystyna Puga PA-C Attending Provider Fast DO, Dr. Alexander Attending Provider [phone] Fast DO, Dr. Alexander Primary Care Provider [phone] Elena MO, Dr. Roberto Lou Attending Provider Fast DO, Dr. Alexander Referring Provider [phone] Sonja MO, Dr. Bridgette Laguerre Attending Provider Sonja MO, Dr. Bridgette Laguerre Referring Provider Can MO, Dr. Esposito Attending Provider [phone] Fast DO, Dr. Alexander Primary Care Provider [phone] Fast DO, Dr. Alexander Referring Provider [phone] Friend DO, Dr. Bocanegra Attending Provider Friend DO, Dr. Bocanegra Referring Provider Roberto Parker Referring Unavailable Roberto Parker Attending Unavailable Fast, Catherine Primary Care Unavailable Bridgette Casillas V Referring Unavailable SibBridgette palmer V Attending Unavailable Fast, Catherine Primary Care Unavailable FriendDaljit Attending Unavailable Fast, Catherine Primary Care Unavailable Fast, Catherine Referring Unavailable Fast, Catherine Referring Unavailable Fast, Catherine Attending Unavailable Fast, Catherine Primary Care Unavailable Fast, Catherine Referring Unavailable Wanek, Roberto A Attending Unavailable Fast, Catherine Primary Care Unavailable Fast, Catherine Referring Unavailable Krystyna Read Attending Unavailable Fast, Catherine Primary Care Unavailable CanVaibhav Attending Unavailable Fast, Catherine Primary Care Unavailable Wanek, Roberto A Attending Unavailable Wanek, Roberto A Consulting Unavailable Wanek, Roberto A Referring Unavailable Fast, Catherine Primary Care Unavailable Fast, Catherine Primary Care Unavailable Friend, Daljit Attending Unavailable Fast, Catherine Referring Unavailable Fast, Catherine Referring Unavailable Wanek, Roberto A Attending Unavailable Fast, Catherine Primary Care Unavailable Friend, Daljit Referring Unavailable Friend, Daljit Attending Unavailable Fast, Catherine Primary Care Unavailable Fast, Catherine Referring Unavailable Fast, Catherine Attending Unavailable Fast, Catherine Primary Care Unavailable Wanek, Roberto A Referring Unavailable Wanek, Roberto A Attending Unavailable Fast, Catherine Primary Care Unavailable Fast, Catherine Referring Unavailable Fast, Catherine Attending Unavailable Fast, Catherine Primary Care Unavailable Fast, Catherine Referring Unavailable Fast, Catherine Attending Unavailable Fast, Catherine Primary Care Unavailable Allergies [...] 2022 ascorbic acid 500 mg oral tablet (16 sources) Vitamin C Start: 05-24-2024 take 1 tablet by mouth once daily Ascorbic Acid (Vitamin C) (C-500) 500 mg tablet Active 500 mg PO DAILY May 24, 2024 1:00am Start: 07-17-2018 End: 03-05-2024 take 2 capsules by mouth twice daily Ascorbic Acid (Vitamin C) 500 MG capsule Discontinued 1000 mg PO TWICE A DAY July 17, 2018 12:00am March 05, 2024 2:59pm vit Start: 07-17-2018 take 1000 mg by mout [...] Comment on above: Take by mouth. Cranberry (17 sources) Non-Standardized Food Allergenic Extract, Non-Standardized Plant [...] 17, 2018 12:00am March 05, 2024 2:59pm supplement Start: 07-17-2018 End: 03-05-2024 take 1 tablet [...] Active Comment on above: Take by mouth. MULTIVITAMIN TAB (9 sources) Start: 06-08-2007 MULTIVITAMIN TAB Take one(1) tablet daily. 0 06/08/2007 Active Comment on above: Take one(1) tablet d aily. Multivitamin With Minerals (Multiple Vitamin-Minerals) 1 EACH tablet (11 sources) Start: 07-17-2018 take 1 tablet by mouth once daily Multivitamin With Minerals (Multiple Vitamin-Minerals) 1 EACH tablet Active 1 EACH PO DAILY July 17, 2018 12:55pm Start: 07-17-2018 End: 03-05-2024 take 1 tablet by mouth once daily Multivitamin With Minerals (Multiple Vitamin-Minerals) 1 EACH tablet Discontinued 1 NMA PO DAILY July 17, 2018 12:00am March 05, 2024 2:59pm vit Start: 07-17-2018 End: 03-05-2024 take 1 tablet [...] Start: 04-19-2022 take 1 capsule by mo uth twice daily before mealtime omeprazole (PRILOSEC) 40 [...] TBEC One tablet by mouth daily OMEPRAZOLE [id number] Jody Phipps Comment on above: Take 1 capsule by mo ut once daily. 1/2 hr before meal. Take 1 capsule by mo uth twice daily. 1/2 hr before meal. ondansetron 4 mg disintegrating oral tablet (9 sources) Serotonin-3 Receptor Antagonist Start: 04-17-19 take 1 tablet by mouth every six hours as needed ondansetron orally disintegrating (ZOFRAN ODT) 4 mg disintegrating tablet Take 1 tablet by mouth every 6 hours as needed for nausea/vomiting. 15 tablet 1 04/17/2021 Active Comment on above: Take 1 tablet by [facility] every 6 hours as needed for nausea/vomiting. perflutren lipid microspheres 1.3 mL in NaCl (PF) 0.9% 10 mL injection (DEFINITY) (4 sources) Start: 10-11-19 End: 01-10-20 22 perflutren lipid microspheres 1.3 mL in NaCl [...] food. rosuvastatin calcium 5 mg oral tablet (5 sources) HMG-CoA Reductase Inhibitor Start: 03-05-20 24 take 1 tablet by mouth every other [...] Virus Nucleoside Analog DNA Polymerase Inhibitor Start: 10-31-19 take 1 tablet by mouth once daily as needed Valacyclovir 500 mg tablet Active 500 mg PO daily as needed October 30, 2024 12:00am Start: 12-16-2015 End: 10-25-2022 take 1 tablet by mouth twice daily valACYclovir (VALTREX) 500 mg tablet Take 1 tablet by mouth twice daily for 3 days 6 tablet 5 10/18/2022 Active End: 05-07-2014 take 2 tablets by mouth twice daily VALTREX 500 MG TABS Two tablets by mouth twice daily VALACYCLOVIR HCL [id number] Marcel Landis Comment on above: Take 1 tablet by yomi th twice daily for 3 days Completed/Discontinued Medications Medication Drug Class(es) Dates Sig (Normalized) Sig (Original) acetaminophen 325 mg / oxyCODONE hydrochloride 5 mg oral tablet (5 sources) Opioid Agonist Start: 06-04-2024 End: 06-14-2024 Oxycodone-Acetaminop hen (Percocet) 5-325 mg tablet Discontinued 1 {tbl} PO Q8H as needed for pain 10 4 0 June 04, 2024 June 14, 2024 9:50am Cholelithiasis Calculus of gallbladder without cholecystitis without obstruction 200 actuat albuterol 0.09 mg/actuat metered dose inhaler (5 sources) beta2-Adrenergic Agonist Start: 08-07-2014 take 2 puff(s) by inhalation every four to six hours as needed for wheezing PROAIR HFA 108 (90 Base) MCG/ACT AERS 2 puffs INH q 4-6 hours PRN Wheezing ALBUTEROL SULFATE [id number] Marcel Landis Start: 08-07-2014 take 2 puff(s) by in halation every four to six hours as needed for wheezing PROAIR HFA 108 (90 Base) MCG/ACT AERS 2 puffs INH q 4-6 hours PRN Wheezing ALBUTEROL SULFATE [id number] Marcel Landis amoxicillin 875 mg / clavulanate 125 mg oral tablet (1 source) Penicillin-class Antibacterial Start: 03-23-2010 End: 04-02-2010 aspirin 81 mg delayed releas e oral tablet (7 sources) Nonsteroidal Anti-inflammatory Drug Start: 06-03-2015 End: 07-03-2015 End: 04-17-2007 take 1 tablet by yomi th once daily ASPIRIN 81 MG CHEW One tablet by mouth daily ASPIRIN [id number] Marcel Landis atenolol 25 mg oral tablet (11 sources) beta-Adrenergic Luc Start: 11-12-2015 End: 07-01-2016 azelaic acid 0.15 mg/mg topi harlan gel (11 sources) Start: 09-05-2013 End: 10-14-2014 End: 05-07-2014 FINACEA 15 % GEL external tw ice daily AZELAIC ACID [id number] Marcel Landis FINACEA 15 % GEL external twice daily AZELAIC ACID [id number] Jody Phipps End: 05-07-2014 FINACEA 15 % GEL external tw ice daily AZELAIC ACID [id number] Marcel Landis bifidobacterium infantis 4 mg oral capsule (1 source) Start: 06-20-2012 End: 07-04-2012 calcium carbonate 1500 mg / cholecalciferol 800 unt oral tablet (12 sources) Vitamin D Start: 07-17-2018 End: 03-05-2024 take 1 tablet by mouth twice daily Calcium Carbonate-Vitamin D3 (Caltrate With Vitamin D3) 1 EACH tablet Discontinued 1 NMA PO TWICE A DAY July 17, 2018 12:00am March 05, 2024 2:59pm vit Start: 07-17-2018 take 1 tablet by yomi th once daily Calcium Carbonate-Vitamin D3 (Caltrate With Vitamin D3) 1 EACH tablet Active 2 EACH PO DAILY July 17, 2018 12:55pm End: 06-03-2015 calcium citrate / vitamin D (10 sources) End: 05-07-2014 take 1 tablet by mouth twice daily CALCIUM 600-200 MG-UNIT TABS One tablet by mouth twice daily CALCIUM-VITAMIN D [id number] Marcel Landis take 1 tablet by yomi th twice daily CALCIUM 600-200 MG-UNIT TABS One tablet by mouth twice daily CALCIUM-VITAMIN D [id number] Jody Phipps End: 05-07-2014 take 1 tablet by mouth twice daily CALCIUM 600-200 MG-UNIT TABS One tablet by mouth twice daily CALCIUM-VITAMIN D [id number] Marcel Landis cephalexin 500 mg oral capsule (2 sources) Cephalosporin Antibacterial Start: 10-22-2022 End: 10-27-2022 take 1 capsule by mouth four times daily cephALEXin (KEFLEX) 500 mg capsule Take 1 capsule by mouth four times daily for 5 days. 20 capsule 10/22/2022 10/27/2022 Comment on above: Take 1 capsule by mo ut four times daily for 5 days. cholecalciferol 0.05 mg oral capsule (14 sources) Vitamin D Start: 07-17-2018 End: 03-05-2024 take 1 capsule by mouth twice daily Cholecalciferol (Vitamin D3) (Vitamin D3) 2,000 UNIT capsule Discontinued 2000 U PO TWICE A DAY July 17, 2018 12:00am March 05, 2024 2:59pm vit Start: 07-17-2018 take 1 capsule by [facility] once daily Cholecalciferol (Vitamin D3) (Vitamin D3) 2,000 UNIT capsule Active 2000 UNIT PO DAILY July 17, 2018 12:55pm Start: 12-30-2008 End: 10-29-2011 End: 05-24-2006 ciprofloxacin 500 mg oral tablet (12 sources) Quinolone Antimicrobial Start: 07-01-2016 End: 08-04-2016 CIPROFLOXACIN HCL 500 MG TABS 1 tablet 2 times a day CIPROFLOXACIN HCL [id number] Rekha Vargas Start: 09-10-2013 End: 09-20-2013 Start: 07-26-2013 End: 08-10-2013 clarithromycin 500 mg oral tablet (1 source) Macrolide Antimicrobial Start: 07-04-2013 End: 08-10-2013 desoximetasone 2.5 mg/ml topical cream (1 source) Corticosteroid Start: 10-26-2011 End: 11-09-2011 dextromethorphan hydrobromide 10 mg / guaiFENesin 200 mg oral capsule (1 source) Uncompetitive T-tivfxc-F-aspartat e Receptor Antagonist, Sigma-1 Agonist Start: 08-03-2010 End: 08-03-2010 doxycycline monohydrate 100 mg oral capsule (11 sources) Tetracycline-class Drug Start: 08-25-2017 End: 10-27-2017 [...] SUSP 2 sprays, nasal daily FLUTICASONE PROPIONATE [id number] Jody Phipps FLONASE 50 MCG/A CT SUSP 2 sprays, nasal daily FLUTICASONE PROPIONATE [id number] Jody Phipps hydroCHLOROthiazide 12.5 mg oral capsule (7 sources) Thiazide Diuretic Start: 04-17-2021 End: 04-19-2022 take 1 capsule by mouth once daily as needed hydroCHLOROthiazide 12.5 mg capsule Take 1 capsule by mouth once daily. As needed for leg swelling. 30 capsule 5 04/17/2021 04/19/2022 Discontinued (Lack of Efficacy) Start: 07-17-2008 End: 07-17-2008 Comment on above: Take 1 capsule by [facility] once daily. As needed for leg swelling. ibandronic acid 150 mg oral tablet (5 sources) Bisphosphonate Start: 2023 End: 2024 take 1 tablet by mouth every month Ibandronate 150 mg tablet Discontinued 150 mg PO EVERY MONTH March 05, 2024 1:00am October 30, 2024 10:31am lisinopril 5 mg oral tablet (11 sources) Angiotensin Converting Enzyme Inhibitor Start: 2015 End: 2015 meloxicam 7.5 mg oral tablet (1 source) Nonsteroidal Anti-inflammatory Drug Start: 2011 End: 2011 methylprednisoLONE (7 sources) Corticosteroid Start: 2022 End: 2022 methylPREDNISolone (MEDROL, MAUREEN,) 4 mg Dose-Pack Follow dosing instructions, take with food. 21 tablet 10/22/2022 10/28/2022 Start: 10-22-2022 End: 10-28-2022 methylPREDNISolone (MEDROL, MAUREEN,) 4 mg Dose-Pack Follow dosing instructions, take with food. 21 tablet 0 10/22/2022 10/28/2022 Active Start: 07-07-2016 End: 07-12-2016 MEDROL 4 MG TBPK Take as dir ected METHYLPREDNISOLONE [id number] Skinny LOPEZ Start: 07-07-2016 End: 07-12-2016 MEDROL 4 MG TBPK Take as dir ected METHYLPREDNISOLONE [id number] Skinny LOPEZ Comment on above: Follow dosing instru ctions, take with food. 24 hr metoprolol succinate 25 mg extended release oral tablet (2 sources) beta-Adrenergic Luc Start: End: Multi-Vitam (1 source) End: 023 MULTIPLE VITAMINS-MINERALS (3 sources) take 1 tablet by mouth once daily MULTIVITAL-M ORAL TABS One tablet by mouth daily MULTIPLE VITAMINS-MINERALS [id number] Jody Phipps MULTIPLE VITAMINS-MINERALS (2 sources) take 1 tablet by mouth once daily MULTIVITAL-M TABS One tablet by mouth daily MULTIPLE VITAMINS-MINERALS [id number] Jody Phipps nitrofurantoin, macrocrystals 25 mg / nitrofurantoin, monohydrate 75 mg oral capsule (2 sources) Start: MACROBID 100 MG CAPS 1 capsule every 12 hours for a total of 10 doses NITROFURANTOIN MONOHYD MACRO [id number] Roberto LOPEZ nitrofurantoin, macrocrystals 25 mg / nitrofurantoin, monohydrate 75 mg oral capsule (1 source) Nitrofuran Antibacterial Start: 011 End: 011 nystatin 100 unt/mg topical powder (1 source) Polyene Antifungal Start: 012 End: pantoprazole 40 mg delayed release oral tablet (1 source) Proton Pump Inhibitor Start: 008 End: 10-05-2 009 phenazopyridine hydrochloride 100 mg oral tablet (1 source) Start: 013 End: 013 microencapsulated potassium chloride 20 meq extended release oral tablet (2 sources) Start: 009 End: 009 Start: 09-04-2007 End: 09-13-2007 risedronate sodium 150 mg oral tablet (1 source) Start: 06-17-2009 End: 06-17-2009 actuat teriparatide 0.02 mg/actuat pen injector (6 sources) Parathyroid Hormone Analog Start: 07-01-2016 FORTEO 600 MCG/2.4ML SOLN take as directed TERIPARATIDE (RECOMBINANT) [id number] Shagufta Pinedo CELL BIOLOGY SCIENTIST Start: 07-01-2016 FORTEO 600 MCG /2.4ML SOLN take as directed TERIPARATIDE (RECOMBINANT) [id number] Shagufta Pinedo CELL BIOLOGY SCIENTIST Start: 04-27-2016 End: 10-25-2022 triamcinolone acetonide 0.25 [...] [Allergy, unspecified, initial encounter] Episodic Cardiac dysrhythmias (15 sources) Sinus tachycardia; Translations: [Tachycardia, unspecified] Episodic [...] Tinea corporis; Translations: [Tinea corporis] 04-13-2016 Episodic Nausea and vomiting (13 sources) Nausea; Translations: [Nausea] Onset: 4 03-05-2024 Episodic Neoplasms of unspecified nature or uncertain behavior (3 sources) Neoplasm of uncertain behavior of skin; Translations: [Neoplasm of uncertain behavior of skin] Resolved: 9 02-10-2015 Episodic Nonmalignant breast conditions (10 sources) Fibrocystic disease of breast; Translations: [Diffuse cystic mastopathy of unspecified breast] 12-01-2016 Chronic Nonspecific chest pain (19 sources) Finding of region of thorax; Translations: [Other chest pain] Resolved: 9 06-22-2021 Episodic Osteoporosis (20 sources) Primary osteoporosis; Translations: [Age-related osteoporosis without current pathological fracture] Onset: 7 04-23-2021 Chronic Other bone disease and musculoskeletal deformities (15 sources) Osteopenia; Translations: [Osteopenia] Resolved: 7 04-13-2016 Episodic Other circulatory disease (11 sources) Orthostatic hypotension; Translations: [Orthostatic hypotension] 10-04-2020 [...] fibrosis] 04-13-2016 Chronic Other lower respiratory disease (11 sources) Hypoxemia; Translations: [Hypoxemia] 10-04-2020 Episodic Other lower respiratory disease (3 sources) Cough; Translations: [Cough] 04-13-2016 Episodic Other lower respiratory disease (8 sources) Dyspnea on exertion; Translations: [SOB (shortness of breath) on exertion] Onset: 1 04-13-2016 Episodic Other nervous system disorders (4 sources) Carpal tunnel syndrome; Translations: [Carpal tunnel syndrome, unspecified laterality] 04-13-2016 Chronic Other nervous system disorders (9 sources) Postoperative pain ; Translations: [Other acute [...] pulmonary hypertension; Translations: [Primary pulmonary hypertension] Onset: 5 Chronic Residual codes; unclassified (10 sources) Family [...] (782.3)] Episodic Skin and subcutaneous tissue infections (11 sources) Cellulitis of foot; Translations: [Cellulitis of right lower limb] 07-24-2018 Episodic Spondylosis; intervertebral disc disorders; other back problems (7 sources) Degeneration of lumbar intervertebral disc; Translations: [Other intervertebral disc degeneration, lumbar region] 04-13-2016 Chronic Spondylosis; intervertebral disc disorders; other back problems (9 sources) Pain in thoracic spine; Translations: [PAIN IN THORACIC SPINE] Resolved: 9 04-13-2016 Episodic Syncope (11 sources) Syncope; Translations: [Syncope and collapse] 10-04-2020 Episodic Urinary tract infections (18 sources) Urinary tract infectious disease; Translations: [Urinary [...] counseling] Onset: 04-19-2022 Episodic Biliary tract disease (10 sources) Biliary calculus; Translations: [Calculus of gallbladder [...] Translations: [Hyperglycemia, unspecified] Onset: 04-17-2021 04-17-2021 Episodic Nonmalignant breast conditions (10 sources) Cyst of breast; Translations: [Solitary cyst of unspecified breast] Onset: 07-11-2011 12-01-2016 Episodic Other aftercare (1 source) Other occupational health and safety manager (current) drug therapy; Translations: [Medication management] Onset: 09-16-2021 Episodic Other connective tissue disease (1 source) Pain in limb; Translations: [Pain in limb] Resolved: 08-03-2010 08-03-2010 Episodic Other inflammatory condition of skin (9 sources) Transient acantholytic dermatosis; 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 [[place]]] Onset: 03-17-2020 03-17-2020 Episodic Other lower respiratory [...] lung field] Onset: 05-07-2014 05-09-2014 Episodic Unclassified (10 sources) history of bladder lift 10-16-2021 Unclassified (10 sources) history of eye lid surgery 10-16-2021 Unclassified (1 source) Deliveries (Parity); Translations: [Deliveries (Parity)] 04-13-2016 Unclassified (1 source) Pregnancies (); Translations: [Pregnancies ()] 04-13-2016 NEGATED: Highlighted row has been ruled out!Residual codes; unclassified (1 source) Disease Episodic Results Test Name Value Interpretation Reference Range Facility MR/[facility] 12-04-2024 MR/[facility] Medical Records Department [address] [place] [address] PAT - Anesthesia 12/04/24 1455 MR#: [id number] Acct: [id number] Name: SUGAR COONEY Rep #: [id number] : 1940 84 From: Kingston Blandon MD PCP: Dr. Catherine Magana, DO Status:PRE SDC Y Race: C Location: [place] Pre-Assessment Diagnosis/Proposed Procedure Planned Operative Procedure(s): EGD Anesthesia History Anesthesia History - loop machine operator: Anesthesia History - loop machine operator Hx Hospitalization No 12/04/24 14:26 Any Problems With Anesthesia No 12/04/24 14:26 Cholinesterase deficiency No 12/04/24 14:26 You/Your Family Experience No 12/04/24 14:26 fever (hyperthermia) with Relationship Recent Exposure to Contagious No 06/04/24 09:29 Disease Does patient have nerve No 12/04/24 14:26 stimulator Patient instructed to have device shut off --Does patient have Pacemaker or ICD? When Was Last Pacemaker Check QUESTION #4 FULL TEXT: You/Your Family Experience fever (hyperthermia) with Anesthesia Last Oral Intake Last Oral intake: Last Oral Intake NPO since Meds taken in AM with sips of water? Meds patient instructed to take am of surgery PONV PONV - loop machine operator: PONV - loop machine operator Female Yes 12/04/24 14:26 HX of Motion Sickness No 12/04/24 14:26 HX of N/V After Surgery No 12/04/24 14:26 Non-Smoker Yes 12/04/24 14:26 Duration of Surgery greater No 12/04/24 14:26 than 60 minutes Number of Risk Factors 2 12/04/24 14:26 PONV Score Moderate Risk 12/04/24 14:26 Height Weight Height Weight: Anesthesia: Height Weight Height 5 ft 06/04/24 09:29 Respiratory Assessment Respiratory Assessment - loop machine operator: Respiratory Tract Infection Hx - loop machine operator Hx Respiratory Tract Infection No 12/04/24 14:26 STOP Sleep Apnea STOP Sleep Apnea - loop machine operator: STOP Sleep Apnea - loop machine operator Hx Hypertension No 12/04/24 14:26 Hx Sleep Apnea No 12/04/24 14:26 CPAP BIPAP Do you snore loudly (louder No 12/04/24 14:26 than talking or can be heard Do you often feel tired/ No 12/04/24 14:26 fatigued/ sleepy during daytime? Has anyone observed you stop No 12/04/24 14:26 breathing during sleep? STOP Results Negative 12/04/24 14:26 QUESTION #5 FULL TEXT : Do you snore loudly (louder than talking or can be heard through closed doors)? Tobacco Use History Tobacco Use History - loop machine operator: Tobacco Use History - loop machine operator Tobacco Use Smoking Status Never smoker 12/04/24 14:26 Hx Tobacco Use No 12/04/24 14:26 Years Smoking Packs Smoked per Day Smoking Cessation Date was within the last 15 years Hx Smoking Cessation Date Hx Smoking Cessation Counseling Hematologic Medial History Hematologic Hx - loop machine operator: Hematologic Medical Hx - clinical documentation manager Hx of Blood Transfusion No 12/04/24 14:26 Hx of Transfusion in last 3 No 12/04/24 14:26 Months Date of Last Transfusion (if within last 3 months) Ever experience any problems No 12/04/24 14:26 with transfusion(s)? Specify any problems Hx of Preganancy in last 3 No 12/04/24 14:26 Months Nurse Filling Out Transfusion ROSA M 12/04/24 14:26 Questions: Date: 12/04/24 12/04/24 14:26 Time: 14:28 12/04/24 14:26 Patient unable to answer at this time (ie. confused, unrespo /Reproduction History /Reproductive History - loop machine operator: /Reproductive Hx- loop machine operator Hx Now No 12/04/24 14:26 Gestational Age (in weeks): EDC: Hx Hx Para Hx Section SAB No 12/04/24 14:26 COUNT INCLUDES THE [facility] Medical History (Updated 12/04/24 @ 14:36 by Ale Puga) Easy bruising Wears hearing aid Arthritis High cholesterol Shortness of breath on exertion History of Holter monitoring History of echocardiogram Hypertension Nausea Cholelithiasis Wears glasses Post-menopausal Bladder disease Gastric reflux Non-smoker History of edema Cardiology follow-up encounter History of stress test Osteoporosis Blind right eye Jose's disease Home Medications ???Medication ???Instructions ???Recorded ???Last Taken ???Type omeprazole 20 mg capsule,delayed 20 mg PO BID 03/05/24 06/03/24 His tory release rosuvastatin 5 mg tablet 5 mg PO QODAY 03/05/24 Unknown His tory ascorbic acid (vitamin C) 500 mg 500 mg PO BID 05/24/24 Unknown His tory tablet (C-500) valacyclovir 500 mg tablet 500 mg PO QDAY PRN HERPES 10/30/24 Unknown History CRANBERRY BENEFITS 400 mg PO BID 12/04/24 Unknown His tory cholecalciferol (vitamin D3) 25 25 mcg PO .QOD 12/04 (more content not included)... Normal [facility] Gastric Emptying Studyon Gastric Emptying Study [facility] [address] [place] [id number] Gastric Emptying Study MR#: [id number] Acct: [id number] Name: SUGAR COONEY Rep #: [id number] : 1940 F 84 From: Raul benítez MD PCP: Dr. Catherine Magana DO Status: REG CLI Study: Gastric Emptying Study Date of Exam: 11/19/24 Exam# [id number] Ordering Dr: Daljit Matos DO PROCEDURE: GASTRIC EMPTYING STUDY 11/19/2024 REASON FOR EXAM: NAUSEA TECHNIQUE: The patient ingested a standard meal of oatmeal, radiopharmaceutical and water. There was no vomiting postprandially. Anterior and posterior planar images of the upper abdomen were obtained for 1 minute immediately following the meal at 1h, 2h and 4h if more than 10% of the activity persisted within the stomach. Regions of interest were drawn, and a geometric mean was used to calculate a odrd-lxiizhna-onabw. RADIOPHARMACEUTICAL: Sulfur colloid DOSE 1.1mCi FINDINGS: Percent activity remaining in stomach: 1 hour 16 % (normal 37-90%) NM/Gastric Emptying Study IMPRESSION: Normal gastric emptying. Reading Location: [id number] CC: Dr. Catherine Magana DO; Daljit Matos DO Fire Extinguisher Repairer: Signed Normal [facility] Gastroenterology Visit Repor ton 10-30-2024 Gastroenterology Visit Report [facility] Gastroenterology [address] [place] [address] OFFICE VISIT Date of Service: 10/30/24 MR#: [id number] Acct: [id number] Name: SUGAR COONEY Rep #: [id number] : 1940 Provider: Daljit Matos DO Age/Sex: 84/F Location: [facility] Status: Signed Intake Vital Signs 06/04/24 09:29 Height 5 ft Intake Visit Reasons: NAUSEA VOMITING Allergies No Known Allergies Allergy (Verified 06/14/24 09:50) Medications ???Medication ???Instructions ???Recorded ???Confirmed ???Type omeprazole 20 mg capsule,delayed 20 mg PO BID 03/05/24 10/30/24 His tory release rosuvastatin 5 mg tablet 5 mg PO QODAY 03/05/24 10/30/24 Hi story ascorbic acid (vitamin C) 500 mg 500 mg PO DAILY 05/24/24 10/30/24 History tablet (C-500) cranberry 500 mg capsule 500 mg PO BID 05/24/24 10/30/24 Hi story valacyclovir 500 mg tablet 500 mg PO QDAY PRN 10/30/24 History Have you fallen in the past year?: No Nurse's Note: Pt was scheduled for EGD on 12.06.24 at the end of their appt today. Reviewed prep instructions and which medications to hold prior to procedure with pt in office. A paper copy of EGD prep instructions were given to pt. Pt denies any questions or concerns at this time. COUNT INCLUDES THE [facility] Medical History (Updated 10/30/24 @ 17:[address] 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 *I established 8.5.25 pt presents with referral from Internal Medicine for N/V. Pt reports for the past few years she will have intermittent / infrequent episodes of nausea and vomiting, only in the evening. Pt reports her last episode was in July 2024, states that since then she has started sleeping on her left side when she feels nauseated and that relieves her symptoms. Pt reports she has not noticed a pattern as to what causes the nausea, but states it is only in the evening / night. Is currently taking Omeprazole 20mg BID. ROS Const Constitutional: No fatigue, fever(s) or weight change ENT ENT: No difficulty swallowing Gastro GI: Positive for nausea/dyspepsia and vomiting; No abdominal pain, belching, bloating, change in bowel habits, change in stool character, coffee ground emesis, constipation, cramping, diarrhea, heartburn, difficulty swallowing, feeling full early, excessive flatus, incontinent of stools, Vomiting blood/hematemesis, Blood in stool, loose stools, Black,tarry stools, pain with swallowing or other Musc Musculoskeletal: No joint pain Skin Skin: No yellowing of the eye or itchy eyes Psych Psychiatric: No anxiety and No depression Endo Endocrine: No fatigue or weight change Aller/Imm Allergy/Immunologic: No itchy eyes Yossi/Lymp Hematologic/Lymphatic: Positive for easy bruising; No easy bleeding Exam Const General: cooperative, healthy appearing, comfortable and no acute distress Nutritional Appearance: well nourished Orientation: oriented x3 HENMT Ears: hearing grossly normal bilaterally Mouth: oral mucosae normal Teeth and gingiva: dentition normal Eyes Sclera: sclerae normal Resp Effort Inspection: normal respiratory effort Auscultation: Bilateral: Clear to Auscultation Cardio Rate: regular rate Rhythm: regular rhythm GI Inspection: normal to inspection Auscultation: normal bowel sounds Percussion: normal to percussion Palpation: no hepatosplenomegaly Assessment and Plan Assessment and Plan (1) Nausea: Status: Acute (2) Vomiting: Status: Acute Plan: 84-year-old female presenting with a chief complaint of intermittent nausea and vomiting occurring primarily at night. She reports these symptoms started approximately three months ago and have been occurring 2-3 times per week. The nausea is described as a queasy feeling in her stomach, sometimes accompanied by a metallic taste in her mouth. Vomiting usually consists of undigested kai (more content not included)... Normal [facility] Echo Completeon 09-19-2024 Echo Complete [facility] [address] [place] [address] Echo Complete 09/19/24 1311 MR#: [id number] Acct: [id number] Name: SUGAR COONEY Rep #: [id number] : 1940 84 From: Vaibhav North MD Attending Dr: Dr. Bridgette Casillas MD Status: REG CLI Ordering Dr: Bridgette Casillas MD Date: 09/19/24 Location: [facility] Sex: F C Admitted: Reason For Study Reason For Study: PHTN Procedure This was a 2D Doppler, Color Flow transthoracic echocardiogram. Exam performed in department. Left Ventricle Normal LV size. The left ventricular ejection fraction is 65 %. Stage 1 diastolic dysfunction. No regional wall motion abnormalities noted. Right Ventricle Normal RV size. Normal systolic function. Atria Normal left atrium. Normal right atrium. Patent foramen ovale. Tricuspid Valve Normal tricuspid valve. Mild (1+) tricuspid valve insufficiency. Pulmonary artery systolic pressure is 33 mmHg. Aortic Valve Trisinus/trileaflet aortic valve. Mild focal aortic valve calcification. Mild (1+) aortic valve insufficiency. Pulmonic Valve Normal pulmonic valve. Great Vessels Normal aortic root. The pulmonary artery is normal size. Inferior vena cava collapse with respiration. Pericardium/Pleural No pericardial effusion. MMode/2D Measurements Calculations LVIDd: 4.2 cm IVSd: 1.0 cm LVOT diam: 2.0 cm LVIDs: 2.9 cm LVPWd: 1.0 cm LVOT area: 3.1 cm2 RVDd: 3.1 cm FS: 30.9 % asc Aorta Diam: 3.9 cm LAV(MOD-bp): 52.5 ml LVAd ap4: 21.0 cm2 LAV(MOD-bp) Indexed: 30.3 ml/m2 LVLd ap4: 7.3 cm LAV(MOD-sp2): 52.5 ml EDV(MOD-sp4): 50.1 ml LAV(MOD-sp4): 52.8 ml EDV(sp4-el): 51.1 ml LVAs ap4: 10.8 cm2 LVLs ap4: 6.1 cm ESV(MOD-sp4): 16.9 ml ESV(sp4-el): 16.1 ml EF(MOD-sp4): 66.3 % EF(sp4-el): 68.6 % SV(MOD-sp4): 33.2 ml SV(MOD-sp2): 28.0 ml LVAd ap2: 19.0 cm2 LVLd ap2: 7.1 cm SI(MOD-sp4): 19.2 ml/m2 SI(MOD-sp2): 16.2 ml/m2 EDV(MOD-sp2): 44.9 ml EDV(sp2-el): 43.2 ml LVAs ap2: 10.4 cm2 LVLs ap2: 6.1 cm ESV(MOD-sp2): 16.9 ml ESV(sp2-el): 15.1 ml EF(MOD-sp2): 62.3 % SV(sp4-el): 35.1 ml Ao sinus diam: 3.[address] Junction: 2.8 cm LA A4 area: 18.6 cm2 LA dimension(2D): 4.1 cm RA A4 area: 13.9 cm2 TAPSE: 2.2 cm Time Measurements MV dec time: 0.20 sec Doppler Measurements Calculations MV E max rachael: 68.1 cm/sec Lat Peak E' Rachael: 9.3 cm/sec Med Peak E' Rachael: 10.3 cm/sec MV A max rachael: 95.7 cm/sec E/E' lat: 7.3 E/E' med: 6.6 MV E/A: 0.71 Ao V2 max: 177.3 cm/sec AI max rachael: 361.4 cm/sec MV dec slope: 340.2 cm/sec2 Ao max P.6 mmHg AI max P.2 mmHg Ao V2 mean: 127.2 cm/sec Ao mean P.3 mmHg AI dec slope: 267.9 cm/sec2 Ao V2 VTI: 38.1 cm AI P1/2t: 395.2 msec AV (velocity ratio): 0.77 STACEY(I,D): 2.4 cm2 STACEY(V,D): 2.3 cm2 LV V1 max: 132.5 cm/sec SV(LVOT): 90.2 ml PA V2 max: 101.1 cm/sec LV V1 max P.0 mmHg LV V1 mean P.8 mmHg LV V1 mean: 89.1 cm/sec LV V1 VTI: 29.5 cm TR max rachael: 267.8 cm/sec TR max P.7 mmHg ECHO/Echo Complete Interpretation Summary The left ventricular ejection fraction is 65 %. Normal LV size. Stage 1 diastolic dysfunction. Patent foramen ovale. Mild (1+) aortic valve insufficiency. Ordering Physician: Birdgette Casillas V Referring Physician: Catherine Magana D.O. Performed By: Kennedi Roberts RDCS 09/19/241910 Date Vaibhav North MD CC: Dr. Catherine Magana DO; Dr. Bridgette Casillas MD Date Dictated: 09/19/241310 Date Transcribed: 09/19/241910 Fire Extinguisher Repairer: Signed Normal [facility] Echocardiogram study reportO rdered By: Vaibhav North on 09-19-2024 Study report [facility] [address] [place] [address] Echo Complete 09/19/241310 MR#: [id number] Acct: [id number] Name: SUGAR COONEY Rep #:[id number] : 1940 84 From: Vaibhav Feliz Attending Dr: Dr. Bridgette Casillas MD Status: REG CLI Ordering Dr: Bridgette Casillas MD Date: 09/19/24 Location: [facility] Sex: F C Admitted: Reason For Study Reason For Study: PHTN Procedure This was a 2D Doppler, Color Flow transthoracic echocardiogram. Exam performed in department. Left Ventricle Normal LV size. The left ventricular ejection fraction is 65 %. Stage 1 diastolic dysfunction. No regional wall motion abnormalities noted. Right Ventricle Normal RV size. Normal systolic function. Atria Normal left atrium. Normal right atrium. Patent foramen ovale. Tricuspid Valve Normal tricuspid valve. Mild (1+) tricuspid valve insufficiency. Pulmonary artery systolic pressure is 33 mmHg. Aortic Valve Trisinus/trileaflet aortic valve. Mild focal aortic valve calcification. Mild (1+) aortic valve insufficiency. Pulmonic Valve Normal pulmonic valve. Great Vessels Normal aortic root. The pulmonary artery is normal size. Inferior vena cava collapse with respiration. Pericardium/Pleural No pericardial effusion. MMode/2D Measurements & Calculations LVIDd: 4.2 cm IVSd: 1.0 cm LVOT diam: 2.0 cm LVIDs: 2.9 cm LVPWd: 1.0 cm LVOT area: 3.1 cm2 RVDd: 3.1 cm FS: 30.9 % asc Aorta Diam: 3.9 cm LAV(MOD-bp): 52.5 ml LVAd ap4: 21.0 cm2 LAV(MOD-bp) Indexed: 30.3 ml/m2 LVLd ap4: 7.3 cm LAV(MOD-sp2): 52.5 ml EDV(MOD-sp4): 50.1 ml LAV(MOD-sp4): 52.8 ml EDV(sp4-el): 51.1 ml LVAs ap4: 10.8 cm2 LVLs ap4: 6.1 cm ESV(MOD-sp4): 16.9 ml ESV(sp4-el): 16.1 ml EF(MOD-sp4): 66.3 % EF(sp4-el): 68.6 % SV(MOD-sp4): 33.2 ml SV(MOD-sp2): 28.0 ml LVAd ap2: 19.0 cm2 LVLd ap2: 7.1 cm SI(MOD-sp4): 19.2 ml/m2 SI(MOD-sp2): 16.2 ml/m2 EDV(MOD-sp2): 44.9 ml EDV(sp2-el): 43.2 ml LVAs ap2: 10.4 cm2 LVLs ap2: 6.1 cm ESV(MOD-sp2): 16.9 ml ESV(sp2-el): 15.1 ml EF(MOD-sp2): 62.3 % SV(sp4-el): 35.1 ml Ao sinus diam: 3.[address] Junction: 2.8 cm LA A4 area: 18.6 cm2 LA dimension(2D): 4.1 cm RA A4 area: 13.9 cm2 TAPSE: 2.2 cm Time Measurements MV dec time: 0.20 sec Doppler Measurements & Calculations MV E max rachael: 68.1 cm/sec Lat Peak E' Rachael: 9.3 cm/sec Med Peak E' Rachael: 10.3 cm/sec MV A max rachael: 95.7 cm/sec E/E' lat: 7.3 E/E' med: 6.6 MV E/A: 0.71 ____ Ao V2 max: 177.3 cm/sec AI max rachael: 361.4 cm/sec MV dec slope: 340.2 cm/sec2 Ao max P.6 mmHg AI max P.2 mmHg Ao V2 mean: 127.2 cm/sec Ao mean P.3 mmHg AI dec slope: 267.9 cm/sec2 Ao V2 VTI: 38.1 cm AI P1/2t: 395.2 msec AV (velocity ratio): 0.77 STACEY(I,D): 2.4 cm2 STACEY(V,D): 2.3 cm2 LV V1 max: 132.5 cm/sec SV(LVOT): 90.2 ml PA V2 max: 101.1 cm/sec LV V1 max P.0 mmHg LV V1 mean P.8 mmHg LV V1 mean: 89.1 cm/sec LV V1 VTI: 29.5 cm TR max rachael: 267.8 cm/sec TR max P.7 mmHg ECHO/Echo Complete Interpretation Summary The left ventricular ejection fraction is 65 %. Normal LV size. Stage 1 diastolic dysfunction. Patent foramen ovale. Mild (1+) aortic valve insufficiency. Ordering Physician: Bridgette Casillas V Referring Physician: Catherine Magana D.O. Performed By: Kennedi Roberts MARLENE 09/19/241910 Date _ Vaibhav North MD CC: Dr. Catherine Magana DO; Dr. Bridgette Casillas MD ~ Date Dictated: 09/19/24 1311 Date Transcribed: 09/19/241910 Fire Extinguisher Repairer: Signed [facility] Work Phone: Abdomen/Pelvis WITH Contrast on 09-11-2024 Abdomen/Pelvis WITH Contrast [facility] [address] [place], [place] [id number] Abdomen/Pelvis WITH Contrast MR#: [id number] Acct: [id number] Name: SUGAR COONEY Rep #: [id number] : 1940 F 84 From: Celine figueroa MD PCP: Dr. Catherine Magana DO Status: REG CLI Study: Abdomen/Pelvis WITH Contrast Date of Exam: Exam# [id number] Ordering Dr: Catherine Magana DO PROCEDURE: ABDOMEN/PELVIS [...] abnormalities, collections or free air. Reading [facility] CC: Dr. Catherine Magana DO Fire Extinguisher Repairer: Signed Normal [facility] Surgery Visit Reporton 06-14 Surgery Visit Report [facility] [address] [place] [address]. [address] [place] [address] OFFICE VISIT Date of Service: 06/14/24 MR#: [id number] Acct: [id number] Name: SUGAR COONEY Rep #: [id number] : 1940 Provider: GINNA forrester Age/Sex: 84/F Location: [facility] Status: Signed Intake Vital Signs 06/04/24 09:29 Height 5 ft Intake Visit Reasons: GALLBLADDER 3-10 Chief Complaint: Gallbladder 310 Is patient in pain?: No Allergies No [...] Global Post Op Diagnoses S/P cholecystectomy Z90.49 COUNT INCLUDES THE [facility] Medical History Wears hearing aid Arthritis High cholesterol Shortness of breath on exertion History of Holter monitoring History of echocardiogram Hypertension Nausea Cholelithiasis Wears glasses Post-menopausal Bladder disease Gastric reflux Non-smoker History of edema Cardiology follow-up encounter History of stress test Osteoporosis Blind right eye Jose's disease Surgical History (Updated 06/14/24 @ 09:51 [...] Date (if applicable) CC: Dr. Catherine Magana, Normal [facility] Discharge Instructionon 05-26 Discharge Instruction [facility] Medical Records Department [address] [place] [address] Instructions for Home/Discharge Instructions 06/04/24 1219 MR#: [id number] Acct: [id number] Name: SUGAR COONEY Rep #: [id number] : 1940 84 From: Roberto Parker MD PCP: Dr. Catherine Magana DO Status:REG [facility] Discharge Instructions Diet Discharge Diet: Light diet [...] Care Provider: Catherine Magana Instructions Print Language: Tanzanian Discharge Orders/Prescriptions Prescriptions: New oxycodone-acetaminophe n [Percocet] [...] MD CC: Dr. Catherine Magana DO Signed [facility] MR/POSTOP.[facility] 06-04-2024 MR/POSTOP.[facility] Medical Records Department [address] [place] [address] Anesthesia Postop Eval I 06/04/24 1212 MR#: [id number] Acct: [id number] Name: SUGAR COONEY Rep #: [id number] : 1940 84 From: Marla Cancino CRNA PCP: Dr. Catherine Magana DO Status:REG SDC Y Race: C Location: [facility]04-28 Anesthesia: Postop Eval I Current Vital Signs [...] completed: Yes 06/04/24 1213 Date Marla Cancino GARMENT MANUFACTURING SUPERVISOR Cosigner Signature: Date CC: Signed Normal [facility] [id number] 06-04-2024 MR/POSTOPAN2 [facility] Medical Records Department [address] [place] [address] Anesthesia Postop Eval II 06/04/24 1225 MR#: [id number] Acct: [id number] Name: SUGAR COONEY Rep #: [id number] : 1940 84 From: Karson Perez MD PCP: Dr. Catherine Magana, DO Status:REG [facility] Y Race: C Location: [place] [address] Anesthesia Postop Eval I Sum Postop Eval Completion status Anesthesia document: Postop Eval 1 completed: Yes Anesthesia Postop Eval I Summary Anesthesia Postop Eval I Summary: Anesthesia Postop Eval I: Assessment Summary Airway patent Yes 06/04/24 12:13 GARMENT MANUFACTURING SUPERVISOR.JSWI Spontaneous unlabored Yes 06/04/24 12:13 GARMENT MANUFACTURING SUPERVISOR.JSWI respirations Mental status Awake 06/04/24 12:13 GARMENT MANUFACTURING SUPERVISOR.JSWI nausea No 06/04/24 12:13 GARMENT MANUFACTURING SUPERVISOR.JSWI Vomiting No 06/04/24 12:13 GARMENT MANUFACTURING SUPERVISOR.JSWI Anesthesia Postop Eval I: Fluid Summary Crystalloid volume administer 800 06/04/24 12:13 GARMENT MANUFACTURING SUPERVISOR.JSWI (ml) Colloids volume administered ( ml) Blood Product volume administered (ml) Total IV fluid infused 800 06/04/24 12:13 GARMENT MANUFACTURING SUPERVISOR.JSWI Anesthesia Postop Eval I: Summary Notes Anesthesia Complication No 06/04/24 12:13 GARMENT MANUFACTURING SUPERVISOR.JSWI Anesthesia Complication Comment: Post-operative progress note Anesthesia: Postop Eval II Evaluation Mental status: Awake Pain Level: 0 nausea: No Vomiting: No 06/04/24 1225 Date Karson Izquierdo Signature: Date CC: Signed Normal [facility] Operative Reporton 5 Operative Report [facility] Medical Records Department [address] [place] [address] Operative Report 06/04/24 1223 MR#: [id number] Acct: [id number] Name: SUGAR COONEY Rep #: [id number] : 1940 84 From: Roberto Parker MD PCP: Dr. Catherine Magana, Status:[facility] Location: [place] [address] Problems Associated Problem List Diagnoses (1) Cholelithiasis: Procedures Digestive 40xxx-49xxx: 12614 Laparo cholecystectomy/graph Operative Report (Standard) Operative Information Date of Procedure: 06/04/24 Pre-Operative Diagnosis: Symptomatic cholelithiasis Post-Operative Diagnosis: Symptomatic cholelithiasis. Surgery/Procedure Performed: Robotic cholecystectomy with ICG cholangiography cook enchilada: Yes Binding Printer: Teo Kasper Tasks completed by assistant produce manager: Closing and Trocar Additional speech assistant?: No Type of Anesthesia: General and [...] throughout the course of the procedure to blaster helper in structure identification. Once both structures [...] taken to recovery in good condition. An BIOLOGICAL ENGINEER was utilized as a physical laboratory assistant. His role included assistance with docking the robot, instrument changes and assistance wi (more content not included)... Normal [facility] Surgery Specimen Level IIIon 06-04-2024 Surgery Specimen Level III ---- Patient Age/Sex Location Account Attending Physician ---- SUGAR COONEY 84/F [facility] [id number] Dr. Roberto Parker MD ---- Specimen: [id number] Received: 06/04/24 Status: KELBY [place] Num: [id number] Spec Type: [facility] Card Dr: Dr. Roberto Parker MD HEADER [...] masses. The wall averages 2mm in thickness. RS1. Mr 06/04/2024 CPT:39910 ---- Patient Age/Sex Location Account Attending Physician ---- SUGAR COONEY 84/F [facility] [id number] Dr. Roberto Parker MD ---- Signed (signature on file) Dr. Starr Gomez MD 06/06/241701 ---- Normal [facility] Comment on above: Performed By: #### P SUIII ####[facility] [id number] [place], [address] MR/Lexa 06-01-2024 MR/[facility] Medical Records Department [address] [place] [address] PAT - Anesthesia 06/01/24 0931 MR#: [id number] Acct: [id number] Name: SUGAR COONEY Rep #: [id number] : 1940 84 From: Karson Perez MD PCP: Dr. Cathernie Magana, DO Status:PRE [facility] Y Race: C Location: [facility] Pre-Assessment Diagnosis/Proposed Procedure Planned Operative Procedure(s): ROBOTIC LAP ROSANNA WITH GRAMS Anesthesia History Anesthesia History - loop machine operator: Anesthesia History - loop machine operator Hx Hospitalization No 05/24/24 11:22 Any Problems [...] take am of surgery PONV PONV - loop machine operator: PONV - loop machine operator Female Yes 05/24/24 11:22 HX of Motion Sickness No 05/24/24 11:22 HX of N/V After Surgery No 05/24/24 11:22 Non-Smoker Yes 05/24/24 11:22 Duration of Surgery greater No 05/24/24 11:22 than 60 minutes Number of Risk Factors 2 05/24/24 11:22 PONV Score Moderate Risk 05/24/24 11:22 Height Weight Height Weight: Anesthesia: Height Weight Height 5 ft 05/21/24 08:50 Respiratory Assessment Respiratory Assessment - loop machine operator: Respiratory Tract Infection Hx - loop machine operator Hx Respiratory Tract Infection No 05/24/24 11:22 STOP Sleep Apnea STOP Sleep Apnea - loop machine operator: STOP Sleep Apnea - loop machine operator Hx Hypertension Yes: MANY YRS AGO 05/24/24 [...] Tobacco Use History Tobacco Use History - loop machine operator: Tobacco Use History - loop machine operator Tobacco Use Smoking Status Never smoker 05/24/24 11:22 Hx Tobacco Use No 05/24/24 11:22 Years Smoking Packs Smoked per Day Smoking Cessation Date was within the last 15 years Hx Smoking Cessation Date Hx Smoking Cessation Counseling Hematologic Medial History Hematologic Hx - loop machine operator: Hematologic Medical Hx - clinical documentation manager Hx of Blood Transfusion No 05/24/24 11:22 [...] confused, unrespo /Reproduction History /Reproductive History - loop machine operator: /Reproductive Hx- loop machine operator Hx Now No 05/24/24 11:22 Gestational Age (in weeks): EDC: Hx Hx Para Hx Section SAB No 05/24/24 11:22 Active Medications Active Medications: Current Medications Generic Name Dose Route Start Last Admin Trade Name Freq PRN Reason Stop Dose Admin Indocyanine Green 3.75 mg/ N/A 1.5 mls @ 999 mls/hr 06/04/24 09:50 IV 06/04/24 09:51 PREOP ONE COUNT INCLUDES THE [facility] Medical History (Updated 05/24/24 @ 11:31 by Iwona Dumont) Wears hearing aid Arthritis High cholesterol Shortness of breath on exertion History of Holter monitoring History of echocardiogram Hypertension Nausea Cholelithiasis Wears glasses Post-menopausal Bladder disease Gastric reflux Non-smoker History of edema Cardiology follow-up encounter History of stress test Osteoporosis 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 Normal [facility] Surgery Visit Reporton 05-21 Surgery Visit Report [facility] [address] [place], [place] [id number] OFFICE VISIT Date of Service: 05/21/24 MR#: [id number] Acct: [id number] Name: SUGAR COONEY Rep #: [id number] : 1940 Provider: Dr. 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 Normal [facility] Breast Limited Unilateralon 04-04-2024 Breast Limited Unilateral [facility] [address] [place] [address] Breast Limited Unilateral MR#: [id number] Acct: [id number] Name: SUGAR COONEY Rep #: [id number] : 1940 F 84 From: Raul benítez MD PCP: Dr. Catherine Magana DO Status: REG CLI Study: Breast Limited Unilateral Date of Exam: Exam# [id number] Ordering Dr: Catherine Magana DO [id number] STUDY: ULTRASOUND BREAST - LEFT REASON FOR [...] Signed: Raul Brandt MD at 13:53 EST , CC: Dr. Catherine Magana DO Fire Extinguisher Repairer: Signed Normal [facility] DIAG MAMM W/CAD, UNILATon DIAG MAMM W/CAD, UNILAT [facility] [address] [place] [address] DIAG MAMM W/CAD, UNILAT MR#: [id number] Acct: [id number] Name: SUGAR COONEY Rep #: [id number] : 1940 F 84 From: Raul benítez MD PCP: Dr. Catherine Magana DO Status: REG CLI Study: DIAG MAMM W/CAD, UNILAT Date of Exam: 04/04/24 Exam# [id number] Ordering Dr: Catherine Magana DO [id number] MAMMOGRAPHY - UNILATERAL DIAGNOSTIC: LEFT BREAST REASON [...] Signed: Raul Brandt MD at 10:07 EST , CC: Dr. Catherine Magana DO Fire Extinguisher Repairer: Signed Normal [facility] SCRN MAMM (CAD)W/SHANNAN BILATo n 04-02-2024 SCRN MAMM (CAD)W/SHANNAN BILAT [facility] Services [address] [place] [address] SCRN MAMM (CAD)W/SHANNAN BILAT MR#: [id number] Acct: [id number] Name: SUGAR COONEY Rep #: [id number] : 1940 F 84 From: Raul benítez MD PCP: Dr. Catherine Magana DO Status: REG CLI Study: SCRN MAMM (CAD)W/SHANNAN BILAT Date of Exam: 09/19 Exam# [id number] Ordering Dr: Catherine Magana DO [id number] MAMMOGRAPHY - BILATERAL SCREENING REASON FOR EXAM: [...] delay biopsy of a clinically suspicious abnormality. [id number] Electronically Signed: Raul Brandt MD at 9:38 EST Reading Location ID and State: [address] [place] [address] , Service support , CC: Dr. Catherine Magana DO Fire Extinguisher Repairer: Signed Normal [facility] Hepatobilliary Img w/Pharm I nton 03-29-2024 Hepatobilliary Img w/Pharm Int [facility] [address] [place], [place] [address] Hepatobilliary Img w/Pharm Int MR#: [id number] Acct: [id number] Name: SUGAR COONEY Rep #: [id number] : 1940 F 84 From: Moo Medina PCP: Dr. Catherine Magana DO Status: REG CLI Study: Hepatobilliary Img w/Pharm Int Date of Exam: 0 03/29/24 Exam# [id number] Ordering Dr: Roberto Parker MD [id number] CLINICAL: 84-year-old female with history of chronic [...] et al, Journal of Nuclear Medicine 32:1695, 1990). Electronically Signed: Moo Farmer DO at 20:57 EST , CC: Dr. Catherine Magana DO; Dr. Roberto Parker MD Fire Extinguisher Repairer: Signed Normal [facility] Surgery Visit Reporton 12-09 -2024 Surgery Visit Report [facility] [address] [place] [address] OFFICE VISIT Date of Service: 03/05/24 MR#: [id number] Acct: [id number] Name: SUGAR COONEY Rep #: [id number] : 1940 Provider: Dr. 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 Normal [facility] Abdomen Limitedon 02-21-2024 Abdomen Limited [facility] [address] [place], [place] [address] Abdomen Limited MR#: [id number] Acct: [id number] Name: SUGAR COONEY Rep #: [id number] : 1940 F 84 From: Louie Catalan MD PCP: Dr. Catherine Magana DO Status: REG CLI Study: Abdomen Limited Date of Exam: 02/21/24 Exam# [id number] Ordering Dr: Catherine Magana DO [id number] EXAM: US Abdomen Limited (quadrant) INDICATION: Female, [...] EST , CC: Dr. Catherine Magana DO Fire Extinguisher Repairer: Signed [facility] 10-22-2022 [facility] Office Visit (UCWSTR ) SUGAR COONEY ([id number]) 1940 F Date Time Provider Department 10/22/22 7:15 AM FARZANA LARSEN [facility] During your visit today, we recorded the following information about you: Temperature Pulse Respiration Blood pressure 96.9 degrees 78/minute 16/minute 118/70 Weight 79.4 kg Farzana Larsen APRN.[facility] 10/22/2022 8:33 AM Signed This note was created using NoteWriter. Subjective Sugar Cooney is a 82 year [...] history is provided by the patient. No foreign language interpreter was used. Hand Pain Pain location: right [...] Maternal Grandmother (more content not included)... Normal [facility] XR HAND 3V PA/LAT/OBL RTon 0 [...] adjacent to the trapezium. Soft tissue swelling. Fire Extinguisher Repairer: [facility] Transcribe Date/Time: Oct 22 2022 8:11A Dictated by : Junie CHAUDHARI MD This examination was interpreted and the report reviewed and electronically signed by: Juine CHAUDHARI MD on Oct 22 2022 8:23AM EST [id number] Normal [facility] XR HAND GENERAL 3V PA/LAT/OB L RIGHTon 10-22-2022 [facility] XR Hand - right PA and Later al and Obliqueon 10-22-2022 IMPRESSION: Osteoarthritis and periarticular calcium deposits. Large calcium deposit adjacent to the trapezium. Soft tissue swelling. Fire Extinguisher Repairer: [facility] Transcribe Date/Time: Oct 22 2022 8:11A Dictated by : Junie CHAUDHARI MD This examination was interpreted and the report reviewed and electronically signed by: Junie CHAUDHARI MD on Oct 22 2022 8:23AM EST DIVISION OF RADIOLOGY * * *Final Report* [...] small periarticular calcifications. DIVISION OF RADIOLOGY Provider, Juliane Dave - 10/22/2022 * * *Final Report* * [...] adjacent to the trapezium. Soft tissue swelling. Fire Extinguisher Repairer: [facility] Transcribe Date/Time: Oct 22 2022 8:11A Dictated by : Junie CHAUDHARI MD This examination was interpreted and the report reviewed and electronically signed by: Junie CHAUDHARI MD on Oct 22 2022 8:23AM EST [facility] Radiology Study observation (narrative) [facility] XR Hand - right PA and Later al and ObliqueOrdered By: Cckimberley Provider on 10-22-2022 [facility] CNOVon 10-18-2022 CNOV Office Visit (FAMPWS ) SUGAR COONEY ([id number]) 1940 F Date Time Provider Department 10/18/22 12:20 PM MARIA DOLORES GARCIA FAMPWS During your visit today, we recorded [...] symmetric, norm (more content not included)... Normal [facility] HbA1c (Bld)on 10-11-2022 Average glucose Estimated from glycated hemoglobin (Bld) [Mass/Vol] 111 mg/dL Normal [facility] Comment on above: Order Comment: Justina cazares Type: BLOOD SPECIMENOrdering Facility: [facility] Address: [address] [address] Result Comment: eAG: (Estimated average glucose) is a calculated value from HgbA1c and is cash application representative of the average blood glucose level in the last 2-3 month period. Performed By: #### 5 5454-3 ####[facility] [id number] [address] [place] HbA1c (Bld) [Mass fraction] 5.5 % Normal 4.3-5.6 [facility] Comment on above: Order Comment: Justina cazares Type: BLOOD SPECIMENOrdering Facility: [facility] Address: [address] [place] [address] Result Comment: Amer ican Diabetes Association guidelines indicate that patients with HgbA1c in the range 5.7-6.4% are at increased risk for development of diabetes, and intervention by lifestyle modification may be beneficial. HgbA1c greater or equal to 6.5% is considered diagnostic of diabetes. Performed By: #### 5 5454-3 ####[facility] [id number] [address] [facility] CNOVon 06-18-2022 CNOV Office Visit (FAMPWS ) SUGAR COONEY ([id number]) 1940 F Date Time Provider Department 06/18/22 12:00 PM VIRGILIO ROJAS During your visit today, we recorded the [...] Completed DEPRESSIO (more content not included)... Normal [facility] CNOVon 04-19-2022 CNOV Office Visit (FAMPWS ) EROSSUGAR ([id number]) 1940 F Date Time Provider Department 04/19/22 1:20 PM [facility] your visit today, we recorded the [...] repeat 10 ys COLONOSCOP W/ OR W/O 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 Normal [facility] CBC W Auto Differential pane l (Bld)on 04-12-2022 Basophils (Bld) [#/Vol] 0.05 10*3/uL Normal <0.11 [facility] Comment on above: Order Comment: Speci men Type: BLOOD SPECIMENOrdering Facility: [facility] Address: [address] [place] [address] Performed By: #### 5 7021-8 ####[facility] LABCLIA [id number] [place] [address] [place] Basophils/100 WBC (Bld) 0.8 % Normal [facility] Comment on above: Order Comment: Speci men Type: BLOOD SPECIMENOrdering Facility: [facility] Address: [address] [place] [address] Performed By: #### 5 7021-8 ####[facility] LABCLIA [id number] [place] [address] [place] Differential cell count method Nom (Bld) Auto Normal [facility] Comment on above: Order Comment: Speci men Type: BLOOD SPECIMENOrdering Facility: [facility] Address: [address] Performed By: #### 5 7021-8 ####[facility] LABCLIA [id number] [place] [address] [place] Eosinophils (Bld) [#/Vol] 0.15 10*3/uL Normal <0.46 [facility] Comment on above: Order Comment: Speci men Type: BLOOD SPECIMENOrdering Facility: [facility] Address: [address] Performed By: #### 5 7021-8 ####[facility]CLIA [id number] [place] [address] [place] Eosinophils/100 WBC (Bld) 2.3 % Normal [facility] Comment on above: Order Comment: Speci men Type: BLOOD SPECIMENOrdering Facility: [facility] Address: [address] [place], [place] [address] Performed By: #### 5 7021-8 ####[facility] LABCLIA [id number] [place] [address] [place] Erythrocyte distribution width (RBC) [Ratio] 12.7 % Normal 11.5-15.0 [facility] Comment on above: Order Comment: Speci men Type: BLOOD SPECIMENOrdering Facility: [facility] Address: [address] [place], [place] [address] Performed By: #### 5 7021-8 ####[facility]CLIA [id number] [place] [address] [place] Hematocrit (Bld) [Volume fraction] 46.4 % High 36.0-46.0 [facility] Comment on above: Order Comment: Speci men Type: BLOOD SPECIMENOrdering Facility: [facility] Address: [address] Performed By: #### 5 7021-8 ####[facility] LABCLIA [id number] [place] [address] [place] Hemoglobin (Bld) [Mass/Vol] 15.0 g/dL Normal 11.5-15.5 [facility] Comment on above: Order Comment: Speci men Type: BLOOD SPECIMENOrdering Facility: [facility] Address: [address] [place] [address] Performed By: #### 5 7021-8 ####[facility]CL[facility] [id number] [place] [address] [place] Immature granulocytes (Bld) [#/Vol] 10*3/uL Normal <0.10 [facility] Comment on above: Order Comment: Speci men Type: BLOOD SPECIMENOrdering Facility: [facility] Address: [address] [place] [address] Performed By: #### 5 7021-8 ####[facility]CLIA [id number] [address] [place] Immature granulocytes/100 WBC (Bld) 0.3 % Normal [facility] Comment on above: Order Comment: Speci men Type: BLOOD SPECIMENOrdering Facility: [facility] Address: [address] [place] [address] Performed By: #### 5 7021-8 ####[facility]CLIA [id number] [place] [address] [place] Lymphocytes (Bld) [#/Vol] 3.16 10*3/uL Normal 1.00-4.00 [facility] Comment on above: Order Comment: Speci men Type: BLOOD SPECIMENOrdering Facility: [facility] Address: [address] [place] [address] Performed By: #### 5 7021-8 ####[facility]CLIA [id number] [place] [address] [place] Lymphocytes/100 WBC (Bld) 47.4 % Normal [facility] Comment on above: Order Comment: Speci men Type: BLOOD SPECIMENOrdering Facility: [facility] Address: [address] [address] Performed By: #### 5 7021-8 ####[facility] [id number] [address] MCH (RBC) [Entitic mass] 30.3 pg Normal 26.0-34.0 [facility] Comment on above: Order Comment: Speci men Type: BLOOD SPECIMENOrdering Facility: [facility] Address: [address] Performed By: #### 5 7021-8 ####[facility] [id number] [address] [place] MCHC (RBC) [Mass/Vol] 32.3 g/dL Normal 30.5-36.0 [facility] Comment on above: Order Comment: Speci men Type: BLOOD SPECIMENOrdering Facility: [facility] Address: [address] [place], [place] [address] Performed By: #### 5 7021-8 ####[facility] [id number] [place] [address] [place] MCV (RBC) [Entitic vol] 93.7 fL Normal 80.0-100.0 [facility] Comment on above: Order Comment: Speci men Type: BLOOD SPECIMENOrdering Facility: [facility] Address: [address] [place], [place] [address] Performed By: #### 5 7021-8 ####[facility] [id number] [place] [address] [place] Monocytes (Bld) [#/Vol] 0.43 10*3/uL Normal <0.87 [facility] Comment on above: Order Comment: Speci men Type: BLOOD SPECIMENOrdering Facility: [facility] Address: [address] [place], [place] [address] Performed By: #### 5 7021-8 ####[facility]CLIA [id number] [place] [address] [place] Monocytes/100 WBC (Bld) 6.5 % Normal [facility] Comment on above: Order Comment: Speci men Type: BLOOD SPECIMENOrdering Facility: [facility] Address: [address] [place] [address] Performed By: #### 5 7021-8 ####[facility]CLIA [id number] [place] [address] [place] Neutrophils (Bld) [#/Vol] 2.85 10*3/uL Normal 1.45-7.50 [facility] Comment on above: Order Comment: Speci men Type: BLOOD SPECIMENOrdering Facility: [facility] Address: [address] [place] [address] Performed By: #### 5 7021-8 ####[facility]CLIA [id number] [place] [address] [place] Neutrophils/100 WBC (Bld) 42.7 % Normal [facility] Comment on above: Order Comment: Speci men Type: BLOOD SPECIMENOrdering Facility: [facility] Address: [address] [place], [place] [address] Performed By: #### 5 7021-8 ####[facility]CLIA [id number] [place] [address] [place] Nucleated RBC (Bld) [#/Vol] 10*3/uL Normal <0.01 [facility] Comment on above: Order Comment: Speci men Type: BLOOD SPECIMENOrdering Facility: [facility] Address: [address] [place], [place] [address] Performed By: #### 5 7021-8 ####[facility]CLIA [id number] [place] [address] [place] Nucleated RBC/100 WBC (Bld) [Ratio] 0.0 /100 WBC Normal [facility] Comment on above: Order Comment: Speci men Type: BLOOD SPECIMENOrdering Facility: [facility] Address: [address] [place], [place] [address] Performed By: #### 5 7021-8 ####[facility]CLIA [id number] [place] [address] [place] Platelet mean volume (Bld) [Entitic vol] 9.5 fL Normal 9.0-12.7 [facility] Comment on above: Order Comment: Speci men Type: BLOOD SPECIMENOrdering Facility: [facility] Address: [address] [place], [place] [address] Performed By: #### 5 7021-8 ####[facility] [id number] [place] [address] [place] Platelets (Bld) [#/Vol] 263 10*3/uL Normal 150-400 [facility] Comment on above: Order Comment: Speci men Type: BLOOD SPECIMENOrdering Facility: [facility] Address: [address] [place], [place] [address] Performed By: #### 5 7021-8 ####[facility] [id number] [place] [address] [place] RBC (Bld) [#/Vol] 4.95 10*6/uL Normal 3.90-5.20 [facility] Comment on above: Order Comment: Speci men Type: BLOOD SPECIMENOrdering Facility: [facility] Address: [address] [place], [place] [address] Performed By: #### 5 7021-8 ####[facility]CLIA [id number] [place] [address] [place] WBC (Bld) [#/Vol] 6.66 10*3/uL Normal 3.70-11.00 [facility] Comment on above: Order Comment: Speci men Type: BLOOD SPECIMENOrdering Facility: [facility] Address: [address] Performed By: #### 5 7021-8 ####[facility]CLIA [id number] [place] [address] [place] Comprehensive metabolic 2000 panelon 04-12-2022 Albumin [Mass/Vol] 4.2 g/dL Normal 3.9-4.9 [facility] Comment on above: Order Comment: Speci men Type: BLOOD SPECIMEN [facility] Address: [address] Performed By: #### 2 4323-8, , 2131-11 #### [facility] CLIA [id number] [address] [place] [address] [place] ALP [Catalytic activity/Vol] 70 U/L Normal 34-123 [facility] Comment on above: Order Comment: Speci men Type: BLOOD SPECIMEN [facility] Address: [address] Performed By: #### 2 4323-8, , 2131-11 #### [facility] CLIA [id number] [address] [place] [address] [place] ALT [Catalytic activity/Vol] 12 U/L Normal 7-38 [facility] Comment on above: Order Comment: Speci men Type: BLOOD SPECIMEN [facility] Address: [address] [place] [address] Performed By: #### 2 4323-8, , 2131-11 #### [facility] CLIA [id number] [address] [place] [address] [place] Anion gap [Moles/Vol] 10 mmol/L Normal 9-18 [facility] Comment on above: Order Comment: Speci men Type: BLOOD SPECIMEN [facility] Address: [address] Performed By: #### 2 4323-8, , 2131-11 #### [facility] CLIA [id number] [address] [place] [address] [place] AST [Catalytic activity/Vol] 17 U/L Normal 13-35 [facility] Comment on above: Order Comment: Speci men Type: BLOOD SPECIMEN [facility] Address: [address] [place] [address] Performed By: #### 2 4323-8, , 2131-11 #### [facility] CLIA [id number] [address] [place] [address] [place] Bilirubin [Mass/Vol] 0.7 mg/dL Normal 0.2-1.3 [facility] Comment on above: Order Comment: Speci men Type: BLOOD SPECIMEN [facility] Address: [address] [place] [address] Performed By: #### 2 4323-8, , 2131-11 #### [facility] CLIA [id number] [address] [place] [address] [place] Calcium [Mass/Vol] 9.7 mg/dL Normal 8.5-10.2 [facility] Comment on above: Order Comment: Speci men Type: BLOOD SPECIMEN [facility] Address: [address] [place] [phone] Performed By: #### 2 4323-8, , 2131-11 #### [facility] CLIA [id number] [address] [place], [place] [address] [place] Chloride [Moles/Vol] 104 mmol/L Normal 97-105 [facility] Comment on above: Order Comment: Speci men Type: BLOOD SPECIMEN [facility] Address: [address] [place] [phone] Performed By: #### 2 4323-8, , 2131-11 #### [facility] CLIA [id number] [address] [place] [address] [place] CO2 [Moles/Vol] 28 mmol/L Normal 22-30 [facility] Comment on above: Order Comment: Speci men Type: BLOOD SPECIMEN [facility] Address: [address] [place] [address] Performed By: #### 2 8, , 2131-11 #### [facility] CLIA [id number] [address] [place] [address] [place] Creatinine [Mass/Vol] 0.68 mg/dL Normal 0.58-0.96 [facility] Comment on above: Order Comment: Speci men Type: BLOOD SPECIMEN [facility] Address: [address] [place] [address] Performed By: #### 2 8, , 2131-11 #### [facility] CLIA [id number] [address] [place] [address] [place] ESTIMATED GLOMERULAR FILTRATION RATE 88 mL/min/1.73m??? Normal >=60 [facility] Comment on above: Order Comment: Speci men Type: BLOOD SPECIMEN [facility] Address: [address] [place] [address] Result Comment: Nhi mated Glomerular Filtration Rate [...] reflect actual GFR. Performed By: #### 2 432-8, , 2131-11 #### [facility] CLIA [id number] [address] [address] [place] Glucose [Mass/Vol] 106 mg/dL High 74-99 [facility] Comment on above: Order Comment: Speci men Type: BLOOD SPECIMEN [facility] Address: [address] [place] [address] Result Comment: The [place] Diabetes Association (ADA) provides guidance for cutoff [...] Standards of Medical Care in Diabetes 2016, [place] Diabetes Association. Diabetes Care. 2016.39(Suppl 1). Performed By: #### 2 4323-8, , 2131-11 #### [facility] CLIA [id number] [facility] [place] [address] [place] Potassium [Moles/Vol] 4.5 mmol/L Normal 3.7-5.1 [facility] Comment on above: Order Comment: Justina cazares Type: BLOOD SPECIMEN [facility] Address: [address] [place], [place] [address] Performed By: #### 2 4323-8, , 2131-11 #### [facility] CLIA [id number] [facility] [place] [address] [place] Protein [Mass/Vol] 6.7 g/dL Normal 6.3-8.0 [facility] Comment on above: Order Comment: Speci men Type: BLOOD SPECIMEN [facility] Address: [address] [place], [place] [address] Performed By: #### 2 4323-8, , 2131-11 #### [facility] CLIA [id number] [address] [place] [address] [place] Sodium [Moles/Vol] 142 mmol/L Normal 136-144 [facility] Comment on above: Order Comment: Justina cazares Type: BLOOD SPECIMEN [facility] Address: [address] [place] [address] Performed By: #### 2 4323-8, 09277-1, 2131-11 #### [facility] CLIA [id number] [address] [place] [address] [place] Urea nitrogen [Mass/Vol] 12 mg/dL Normal 7-21 [facility] Comment on above: Order Comment: Justina cazares Type: BLOOD SPECIMEN [facility] Address: [address] [place] [address] Performed By: #### 2 4323-8, , 2131-11 #### [facility] CLIA [id number] [address] [place] [address] [place] HbA1c (Bld)on 04-12-2022 Average glucose Estimated from glycated hemoglobin (Bld) [Mass/Vol] 105 mg/dL Normal [facility] Comment on above: Order Comment: Justina cazares Type: BLOOD SPECIMENOrdering Facility: [facility] Address: [address] [place] [address] Result Comment: eAG: (Estimated average glucose) is a calculated value from HgbA1c and is cash application representative of the average blood glucose level in the last 2-3 month period. Performed By: #### 5 5454-3 ####[facility] LABCLIA [id number] [place] [address] [place] HbA1c (Bld) [Mass fraction] 5.3 % Normal 4.3-5.6 [facility] Comment on above: Order Comment: Justina cazares Type: BLOOD SPECIMENOrdering Facility: [facility] Address: [address] [place] [address] Result Comment: [place] Diabetes Association guidelines indicate that patients with HgbA1c in the range 5.7-6.4% are at increased risk for development of diabetes, and intervention by lifestyle modification may be beneficial. HgbA1c greater or equal to 6.5% is considered diagnostic of diabetes. Performed By: #### 5 5454-3 ####[facility] LABCLIA [id number] [address] [facility] Magnesium [facility] 04-12 Magnesium [Mass/Vol] 2.1 mg/dL Normal 1.7-2.3 [facility] Comment on above: Order Comment: Speci men Type: BLOOD SPECIMEN [facility] Address: [address] [place] [address] Performed By: #### 2 432-8, , 2131-11 #### [facility] CLIA [id number] [place] Vit B12 [facility] 023 Cobalamin (Vitamin B12) [Mass/Vol] 507 pg/mL Normal 232-1245 [facility] Comment on above: Order Comment: Hermelindoi sage Type: BLOOD SPECIMENOrdering Facility: [facility] Address: [address] [place] [address] Performed By: #### 2 432-8, , 2131-11 ####[facility] LABCLIA [id number] [address] [place] Absolute lymphocyte counton 06-14-2021 Lymphocytes Auto (Unsp spec) [#/Vol] 0.26 10*3/uL 0.83-4.51 [facility] Work Phone: Basophil percentageon 2021 Basophil percentage 0 SEEN /hpf [facility] Work Phone: Basophils/100 WBC (Bld) 0.4 % 0-1 [facility] Work Phone: Chloride [Moles/Vol] 109 mmol/L 98-107 [facility] [place] Work Phone: Eosinophils/100 WBC (Bld) 0.3 % 0-5 [facility] Work Phone: Glucose [Mass/Vol] 90 mg/dL 74-106 [facility] Work Phone: Neutrophils (Bld) [#/Vol] 6.7 10*3/uL 2.0-7.7 [facility] Work Phone: Neutrophils/100 WBC (Bld) 93.1 % 47-70 [facility] Work Phone: Potassium [Moles/Vol] 3.4 mmol/L 3.5-5.1 [facility] Work Phone: Comment on above: Moderate Hemolysis, Result may be falsely increased. Sodium [Moles/Vol] 144 mmol/L 136-145 [facility] Work Phone: WBC (Bld) [#/Vol] 7.2 10*3/uL 4.4-11.0 [facility] Work Phone: Bilirubin Test strip Ql (U)o n 06-14-2021 Bilirubin Ql (U) Negative Negative [facility] Work Phone: Blood erythrocytes count (nu mber/volume)on 06-14-2021 RBC (Bld) [#/Vol] 4.76 10*6/uL 4.2-5.4 [facility] Work Phone: Blood hemoglobin measurement (mass/volume)on 06-14-2021 Hemoglobin (Bld) [Mass/Vol] 15.0 g/dL 12.0-15.0 [facility] Work Phone: Blood lymphocytes/100 leukoc yteson 06-14-2021 Lymphocytes/100 WBC (Bld) 3.6 % 19-41 [facility] Work Phone: Blood manual differential co mment interpretation (narrative result)on 06-14-2021 Manual differential comment Ramone (Bld) [Interp] SCANNED [facility] Work Phone: Blood monocytes/100 leukocyt eson 06-14-2021 Monocytes/100 WBC (Bld) 0.4 % 0-10 [facility] Work Phone: Blood platelet mean volumeon 06-14-2021 Platelet mean volume (Bld) [Entitic vol] 9.7 fL 6.2-12.0 [facility] Work Phone: Determination of erythrocyte mean corpuscular volume (MCV)on 06-14-2021 MCV (RBC) [Entitic vol] 93.1 fL 81-99 [facility] Work Phone: Hematocrit Auto (Bld) [Volum e fraction]on 06-14-2021 Hematocrit (Bld) [Volume fraction] 44.3 % 37-47 [facility] Work Phone: Ketones Test strip Ql (U)on 06-14-2021 Ketones Ql (U) Negative Negative [facility] Work Phone: Laboratory - Chemistry and C hemistry - challengeon 06-14-2021 CO2 [Moles/Vol] 28.0 mmol/L 21.0-32.0 [facility] Work Phone: Urea nitrogen/Creatinine [Mass ratio] 16.4 mg/mg 01-14 [facility] Work Phone: Laboratory - Hematology and Cell countson 06-14-2021 Erythrocyte distribution width (RBC) [Entitic vol] 43.6 fL 35.1-43.9 [facility] Work Phone: Erythrocyte distribution width (RBC) [Ratio] 12.9 % 11.6-14.6 [facility] Work Phone: Immature granulocytes/100 WBC (Bld) 2.200 % 0.0-0.9 [facility] Work Phone: Comment on above: IG% - Immature Granu locytes (promyelocytes, myelocytes and metamyelocytes) > 1% indicates that a LEFT SHIFT is Present. MCH (RBC) [Entitic mass] 31.5 pg 27.0-32.0 [facility] Work Phone: Nucleated RBC/100 WBC (Bld) [Ratio] 0 % 0-5 [facility] Work Phone: MCHC Auto (RBC) [Mass/Vol]on 06-14-2021 MCHC (RBC) [Mass/Vol] 33.9 g/dL 32-36 [facility] Work Phone: Mucus LM Ql (Urine sed)on Mucus Ql (Urine sed) 0 SEEN /hpf [facility] Work Phone: Nitrite Test strip Ql (U)on 06-14-2021 Nitrite Ql (U) Negative Negative [facility] Work Phone: No Panel Informationon 06-14 Troponin I High Sensitivity 8 pg/mL 3.0-54.0 [facility] Work Phone: Comment on above: Please Note: New [place] t Units and Gender Specific Reference Ranges. For more information see Policy Stat Procedure [place] High Sensitivity Troponin (TNIH) and attachments. D-Dimer Quantitative (PE/DVT) 2.79 FEU/ug/m 0.27-0.49 [facility] Work Phone: Comment on above: D-Dimer ELEVATED (>0 .49): Additional studies and clinicalassessments are indicated to conclude diagnosis of:Deep Vein Thrombosis (DVT) or Pulmonary Embolism (PE)CRITICAL VALUE VERIFIED. CALLED TO FLETCHER RAPHAEL06/14/21 1559 Starr Saucedo.RESULTS READ BACK BY SAME . Estimated Creatinine Clearance Calc 32.77 ml/min [facility] Work Phone: Estimated GFR (MDRD) Amer 99 mL/min >60 [facility] Work Phone: Comment on above: GFR Calc Estimated GFR (MDRD) Non-Af Amer 81 mL/min >60 [facility] Work Phone: Comment on above: Non- GFR Calc Thyroid Stimulating Hormone (TSH) 1.57 uIU/mL 0.358-3.74 [facility] Work Phone: Platelets bldon 06-14-2021 Platelets (Bld) [#/Vol] 194 10*3/uL 150-450 [facility] Work Phone: Protein Test strip Ql (U)on 06-14-2021 Protein Ql (U) Negative Negative [facility] Work Phone: Serum or plasma calcium lisa urement (mass/volume)on 06-14-2021 Calcium [Mass/Vol] 9.4 mg/dL 8.5-10.[address] [facility] [address] [facility] Work Phone: Serum or plasma creatinine m easurement (mass/volume)on 06-14-2021 Creatinine [Mass/Vol] 0.73 mg/dL 0.55-1.[address] [facility] Work Phone: Comment on above: The validity of the calculated GFR & GFRAA in patients over 70 years has not been determined. Clinical correlation is essential. Serum or plasma urea nitroge n measurement (mass/volume)on 06-14-2021 Urea nitrogen [Mass/Vol] 12 mg/dL 7-18 [facility] Work Phone: Squamous epithelial cells de tection in urine sediment by light microscopyon 06-14-2021 Epithelial cells.squamous LM Ql (Urine sed) 0-5 SEEN /hpf [facility] Work Phone: Thin prep Papanicolaou smear with manual screeningon 06-14-2021 Thin prep Papanicolaou smear with manual screening 7 5-15 [facility] Work Phone: Urine blood detectionon 05-27 0 RBC Ql (U) Negative Negative [facility] Work Phone: RBC Ql (U) 0 SEEN /hpf [facility] Work Phone: Urine clarityon 06-14-2021 Clarity (U) Clear Clear [facility] Work Phone: Urine color determinationon 06-14-2021 Color (U) Yellow Yellow [facility] Work Phone: Urine glucose detectionon Glucose Ql (U) Normal mg/dl Normal [facility] Work Phone: Urine leukocyte esterase det ection by dipstickon 06-14-2021 Leukocyte esterase Test strip Ql (U) Negative Negative [facility] Work Phone: Urine pHon 06-14-2021 pH (U) 8.0 [pH] [facility] Work Phone: Urine sediment bacteria coun t by microscopy (number/high power field)on 06-14-2021 Bacteria LM.HPF (Urine sed) [#/Area] 0 /[HPF] None Seen [facility] Work Phone: Urine specific gravity measu rementon 06-14-2021 Specific gravity (U) [Rel density] 1.010 [facility] Work Phone: Urobilinogen Auto test strip Ql (U)on 06-14-2021 Urobilinogen Ql (U) Normal mg/dl Normal [facility] Work Phone: Basophil percentageon 2021 Cholesterol [Mass/Vol] 200 mg/dL <200 [facility] Work Phone: Comment on above: <200 mg/dL Desirable 200-240 mg/dL Borderline >240 mg/dL High Risk Triglyceride [Mass/Vol] 102 mg/dL [facility] Work Phone: Comment on above: The drugs N-Acetylcy steine and Metamizole may falsely depress this assay.Serum Triglycerides Reference Interval Normal <150 mg/dL Borderline high 150 - 199 mg/dL High 200 - 499 mg/dL Very High > or = 500 mg/dL Serum or plasma cholesterol in HDL measurement (mass/volume)on 04-09-2021 Cholesterol in HDL [Mass/Vol] 60 mg/dL [facility] Work Phone: Comment on above: The drugs N-Acetylcy steine and Metamizole may falsely depress this assay. Reference Range HDL <40 mg/dL Low HDL Cholesterol HDL >or= 60 mg/dL High HDL Cholesterol Serum or plasma cholesterol in VLDL measurement (mass/volume)on 04-09-2021 Cholesterol in VLDL [Mass/Vol] 20 mg/dL 5-40 [facility] Work Phone: Serum or plasma low density lipoprotein (LDL) cholesterol measurement (mass/volume)on 04-09-2021 Cholesterol in LDL [Mass/Vol] 120 mg/dL 0-130 [facility] Work Phone: CNNURSEon 06-12-2020 CNNURSE Nurse Visit (COVAMD) SUGAR COONEY ([id number]) 1940 F Date Time Provider Department 06/12/20 BRIDGETTE CHOWDHURY JR During your visit today, we recorded the following information about you: Allergies As of Date: 06/12/2020 (No Known Allergies) Date Reviewed: 03/17/2020 Reviewed by: Virgilio Rojas - Fully Assessed Order(s):[employer] SARS-COV-2 VACCINE 2D DOSE APPT [[id number]] Order #: [id number] Prescriptions as of 06/12/2020 Sig: VALACYCLOVIR 500 MG TABLET Take 1 tablet by mouth twice * CALTRATE 600 + D ORAL Take by mouth. VITAMIN D2 ORAL Take by mouth. * MULTIVITAMIN TABLET Take one(1) tablet daily. 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] 03/17/2020 Encounter Status:Open [facility] Office Visit: UC: UTIon 11- Alcoholism counseling (procedure) no Invalid Interpretation Code [facility] Work Phone: Bilirubin Ql (U) Negative Invalid Interpretation Code [facility] Work Phone: blood in urine (hemoglobin) by dipstick non-hemolyzed moderate Invalid Interpretation Code [facility] Work Phone: Documentation of current medications (procedure) Done Invalid Interpretation Code [facility] Work Phone: Fall risk assessment No Invalid Interpretation Code [facility] Work Phone: specific gravity, urine 1.005 Invalid Interpretation Code [facility] Work Phone: Tobacco smoking status NHIS Never Invalid Interpretation Code [facility] Work Phone: Tobacco use CPHS Never smoker Invalid Interpretation Code [facility] Work Phone: Urine, appearance clear Invalid Interpretation Code [facility] Work Phone: Urine, color lt. yellow Invalid Interpretation Code [facility] Work Phone: Urine, glucose presence Negative Invalid Interpretation Code [facility] Work Phone: Urine, ketones presence Negative Invalid Interpretation Code [facility] Work Phone: Urine, leukocyte esterase presence 2+ Invalid Interpretation Code [facility] Work Phone: Urine, nitrite presence Negative Invalid Interpretation Code [facility] Work Phone: Urine, pH 5.0 [pH] Invalid Interpretation Code [facility] Work Phone: Urine, protein Negative Invalid Interpretation Code [facility] Work Phone: Urine, urobilinogen presence Negative Invalid Interpretation Code [facility] Work Phone: Office Visit: Dyspneaon 05 Alcoholism counseling (procedure) no Invalid Interpretation Code [facility] Work Phone: Documentation of current medications (procedure) Done Invalid Interpretation Code [facility] Work Phone: Fall risk assessment No Invalid Interpretation Code [facility] Work Phone: Tobacco smoking status NHIS Never Invalid Interpretation Code [facility] Work Phone: Tobacco use [facility] Never smoker Invalid Interpretation Code [facility] Work Phone: Office Visit: UC: UTIon blood in urine (hemoglobin) by dipstick 2+ Invalid Interpretation Code [facility] Work Phone: specific gravity, urine 1.015 Invalid Interpretation Code [facility] Work Phone: Urine, appearance hazy Invalid Interpretation Code [facility] Work Phone: Urine, bilirubin presence Negative Invalid Interpretation Code [facility] Work Phone: Urine, color yellow Invalid Interpretation Code [facility] Work Phone: Urine, glucose presence Negative Invalid Interpretation Code [facility] Work Phone: Urine, ketones presence Negative Invalid Interpretation Code [facility] Work Phone: Urine, leukocyte esterase presence 2+ Invalid Interpretation Code [facility] Work Phone: Urine, nitrite presence Negative Invalid Interpretation Code [facility] Work Phone: Urine, pH 5.0 [pH] Invalid Interpretation Code [facility] Work Phone: Urine, protein Negative Invalid Interpretation Code [facility] Work Phone: Urine, urobilinogen presence Negative Invalid Interpretation Code [facility] Work Phone: CALCIFEDIOL ([id number])Ordered B y: Hat Sprayer on 04-14-2016 25-hydroxyvitamin D [Mass/Vol] 44.0 ng/mL Normal 30.0-100.0 [facility]; [facility] Work Phone: CBC, PLATELETS & AUT DIFF ([phone])Ordered By: Hat Sprayer on 04-14-2016 Basophils (Bld) [#/Vol] 0.0 10*3/uL [...] MCHC (RBC) [Mass/Vol] 34.0 g/dL Normal 31.5-35.7 [facility] prehensive Internal Medicine; [facility] [...] RBC (Bld) [#/Vol] 4.28 10*6/uL Normal 3.77-5.28 [facility] ehensive [facility]; [facility] Work Phone: WBC (Bld) [#/Vol] 4.8 10*3/uL Normal 3.4-10.8 [facility]; [facility] Work Phone: LIPID PANEL ([id number])Ordered B y: Hat Sprayer on 04-14-2016 Cholesterol [Mass/Vol] 224 mg/dL Abnormal 100-199 [facility]; [facility] Work Phone: Cholesterol in HDL [Mass/Vol] 76 mg/dL Normal [facility]; [facility] Work Phone: Cholesterol in LDL [Mass/Vol] 125 mg/dL Abnormal 0-99 [facility]; [facility] Work Phone: Cholesterol in LDL/Cholesterol in HDL [Mass ratio] 1.6 {ratio_units} Normal 0.0-3.2 [facility]; [facility] Work Phone: Cholesterol in VLDL [Mass/Vol] 23 mg/dL Normal 5-40 [facility]; [facility] Work Phone: Triglyceride [Mass/Vol] 114 mg/dL Normal 0-149 [facility]; [facility] Work Phone: METABOLIC PANEL, COMPREHENSI VE ([phone])Ordered By: Hat Sprayer on 04-14-2016 Albumin [Mass/Vol] 4.1 g/dL Normal 3.5-4.8 [facility]; [facility] Work Phone: Albumin/Globulin [Mass ratio] 1.9 {ratio} Normal 1.1-2.5 [facility]; [facility] Work Phone: ALP [Catalytic activity/Vol] 65 U/L Normal 39-117 [facility]; [facility] Work Phone: ALT [Catalytic activity/Vol] 17 U/L Normal 0-32 [facility]; [facility] Work Phone: AST [Catalytic activity/Vol] 19 U/L Normal 0-40 [facility]; [facility] Work Phone: Bilirubin [Mass/Vol] 0.8 mg/dL Normal 0.0-1.2 [facility]; [facility] Work Phone: Calcium [Mass/Vol] 9.3 mg/dL Normal 8.7-10.3 [facility]; [facility] Work Phone: Chloride [Moles/Vol] 101 mmol/L Normal 96-106 [facility]; [facility] Work Phone: CO2 [Moles/Vol] 26 mmol/L Normal 18-29 [facility]; [facility] Work Phone: Creatinine [Mass/Vol] 0.58 mg/dL Normal 0.57-1.00 [facility]; [facility] Work Phone: GFR/1.73 sq M.predicted among blacks CKD-EPI (S/P/Bld) [Vol rate/Area] 105 mL/min/1.73 Normal [facility]; [facility] Work Phone: GFR/1.73 sq M.predicted among non-blacks CKD-EPI (S/P/Bld) [Vol rate/Area] 91 mL/min/1.73 Normal [facility]; [facility] Work Phone: Globulin (S) [Mass/Vol] 2.2 g/dL Normal 1.5-4.5 [facility]; [facility] Work Phone: Glucose [Mass/Vol] 91 mg/dL Normal 65-99 [facility]; [facility] Work Phone: Potassium [Moles/Vol] 4.4 mmol/L Normal 3.5-5.2 [facility] prehensive [facility]; [facility] Work Phone: Protein [Mass/Vol] 6.3 g/dL Normal 6.0-8.5 [facility]; [facility] Work Phone: Sodium [Moles/Vol] 143 mmol/L Normal 134-144 [facility]; [facility] Work Phone: Urea nitrogen [Mass/Vol] 13 mg/dL Normal 8-27 [facility]; [facility] Work Phone: Urea nitrogen/Creatinine [Mass ratio] 22 mg/mg Normal 11-26 [facility]; [facility] Work Phone: MICROALBUMINOrdered By: Syst em Intensive Care Unit Nurse on 04-14-2016 Albumin DL <= 20 mg/L (U) [Mass/Vol] mg/dL Normal [facility]; [facility] Work Phone: Albumin/Creatinine (U) [Mass ratio] <10.3 Normal 0.0-30.0 [facility]; [facility] Work Phone: Creatinine (U) [Mass/Vol] 29.2 mg/dL Normal [facility]; [facility] Work Phone: TSH (THYROID STIMULATING HOR YAJAIRA) ([phone])Ordered By: Hat Sprayer on 04-14-2016 TSH Qn 1.870 {uIU/mL} Normal 0.450-4.500 [facility]; [facility] Work Phone: Blood Glucose , Office [phone])Ordered By: Gail Villanueva on 04-13-2016 Glucose Glucometer (BldC) [Moles/Vol] 94 1 Normal [facility]; [facility] Work Phone: HgA1C , Office ([phone])Ordere d By: Gail Villanueva on 04-13-2016 HbA1c (Bld) [Mass fraction] 5.1 % Normal 4.6 - 7.1 [facility]; [facility] Work Phone: MICROALBUMINOrdered By: Syst em Intensive Care Unit Nurse on 12-22-2015 Albumin DL <= 20 mg/L (U) [Mass/Vol] mg/dL Normal [facility]; [facility] Work Phone: Albumin/Creatinine (U) [Mass ratio] <17.6 Normal 0.0-30.0 [facility]; [facility] Work Phone: Creatinine (U) [Mass/Vol] 17.0 mg/dL Normal [facility]; [facility] Work Phone: CALCIFEDIOL ([phone])Ordered B y: Hat Sprayer on 12-18-2015 25-hydroxyvitamin D [Mass/Vol] 75.6 ng/mL Normal 30.0-100.0 [facility]; [facility] Work Phone: CBC, PLATELETS & AUT DIFF ([phone])Ordered By: Hat Sprayer on 12-18-2015 Basophils (Bld) [#/Vol] 0.0 10*3/uL [...] MCHC (RBC) [Mass/Vol] 33.9 g/dL Normal 31.5-35.7 [facility] prehensive Internal [facility]; [facility] [...] RBC (Bld) [#/Vol] 4.57 10*6/uL Normal 3.77-5.28 [facility]; [facility] Work Phone: WBC (Bld) [#/Vol] 6.2 10*3/uL Normal 3.4-10.8 [facility]; [facility] Work Phone: LIPID PANEL ([phone])Ordered B y: Hat Sprayer on 12-18-2015 Cholesterol [Mass/Vol] 237 mg/dL Abnormal 100-199 [facility]; [facility] Work Phone: Cholesterol in HDL [Mass/Vol] 76 mg/dL Normal [facility]; [facility] Work Phone: Cholesterol in LDL [Mass/Vol] 140 mg/dL Abnormal 0-99 [facility]; [facility] Work Phone: Cholesterol in LDL/Cholesterol in HDL [Mass ratio] 1.8 {ratio_units} Normal 0.0-3.2 [facility]; [facility] Work Phone: Cholesterol in VLDL [Mass/Vol] 21 mg/dL Normal 5-40 [facility]; [facility] Work Phone: Triglyceride [Mass/Vol] 105 mg/dL Normal 0-149 [facility]; [facility] Work Phone: METABOLIC PANEL, COMPREHENSI VE ([phone])Ordered By: Hat Sprayer on 12-18-2015 Albumin [Mass/Vol] 4.1 g/dL Normal 3.5-4.8 [facility]; [facility] Work Phone: Albumin/Globulin [Mass ratio] 1.7 {ratio} Normal 1.1-2.5 [facility]; [facility] Work Phone: ALP [Catalytic activity/Vol] 55 U/L Normal 39-117 [facility]; [facility] Work Phone: ALT [Catalytic activity/Vol] 14 U/L Normal 0-32 [facility]; [facility] Work Phone: AST [Catalytic activity/Vol] 16 U/L Normal 0-40 [facility]; [facility] Work Phone: Bilirubin [Mass/Vol] 0.7 mg/dL Normal 0.0-1.2 [facility] rehensive Internal Medicine; [facility] Work Phone: Calcium [Mass/Vol] 9.5 mg/dL Normal 8.7-10.3 [facility]; [facility] Work Phone: Chloride [Moles/Vol] 102 mmol/L Normal 97-108 [facility] [facility]; [facility] Work Phone: CO2 [Moles/Vol] 26 mmol/L Normal 18-29 [facility] Internal Medicine; [facility] Work Phone: Creatinine [Mass/Vol] 0.60 mg/dL Normal 0.57-1.00 [facility] Internal Medicine; [facility] Internal Medicine Work Phone: GFR/1.73 sq M.predicted among blacks CKD-EPI (S/P/Bld) [Vol rate/Area] 105 mL/min/1.73 Normal [facility]; [facility] Work Phone: GFR/1.73 sq M.predicted among non-blacks CKD-EPI (S/P/Bld) [Vol rate/Area] 91 mL/min/1.73 Normal [facility]; [facility] Internal Medicine Work Phone: Globulin (S) [Mass/Vol] 2.4 g/dL Normal 1.5-4.5 [facility] Internal Medicine; [facility] Work Phone: Glucose [Mass/Vol] 94 mg/dL Normal 65-99 [facility]; [facility] Work Phone: Potassium [Moles/Vol] 4.8 mmol/L Normal 3.5-5.2 [facility] prehensive Internal Medicine; [facility] Work Phone: Protein [Mass/Vol] 6.5 g/dL Normal 6.0-8.5 [facility]; [facility] Work Phone: Sodium [Moles/Vol] 144 mmol/L Normal 134-144 [facility]; [facility] Work Phone: Urea nitrogen [Mass/Vol] 12 mg/dL Normal 8-27 [facility]; [facility] Work Phone: Urea nitrogen/Creatinine [Mass ratio] 20 mg/mg Normal 11-26 [facility]; [facility] Work Phone: TSH (THYROID STIMULATING HOR YAJAIRA) ([id number])Ordered By: Hat Sprayer on 12-18-2015 TSH Qn 1.790 {uIU/mL} Normal 0.450-4.500 [facility] Internal Medicine; [facility] Work Phone: URINE CALCIUM SAMANTHA TIMED 24 Hour ([phone])Ordered By: Hat Sprayer on 12-18-2015 Calcium (24H U) [Mass/Time] 269.5 {mg/24_hr} Normal 100.0-300.0 [facility]; [facility] Work Phone: Calcium (24H U) [Mass/Vol] 11.0 mg/dL Normal [facility]; [facility] Work Phone: VITAMIN B12 AND FOLATES ([phone])Ordered By: Hat Sprayer on 12-18-2015 Cobalamin (Vitamin B12) [Mass/Vol] 622 pg/mL Normal 211-946 [facility]; [facility] Work Phone: Folate [Mass/Vol] ng/mL Normal Compreh [facility] Internal Medicine; [facility] Work Phone: Blood Glucose , Office ([phone])Ordered By: Tabitha Bianchi on 12-16-2015 Glucose Glucometer (BldC) [Moles/Vol] 90 1 Normal [facility]; [facility] Work Phone: HgA1C , Office ([phone])Ordere d By: Tabtiha Bianchi on 12-16-2015 HbA1c (Bld) [Mass fraction] 5.3 % Normal 4.6 - 7.1 [facility]; [facility] Work Phone: CBC W/AUTO DIFF WBC ([phone])O rdered By: Hat Sprayer on 12-09-2015 Basophils (Bld) [#/Vol] 0.0 10*3/uL [...] MCHC (RBC) [Mass/Vol] 33.8 g/dL Normal 31.5-35.7 [facility] prehensive Internal Medicine; [facility] [...] RBC (Bld) [#/Vol] 4.48 10*6/uL Normal 3.77-5.28 [facility] ehensive Internal Medicine; [facility] Work Phone: WBC (Bld) [#/Vol] 5.1 10*3/uL Normal 3.4-10.8 Compre [facility]; [facility] Work Phone: LIPID PANEL ([id number])Ordered B y: Hat Sprayer on 12-09-2015 Cholesterol [Mass/Vol] 223 mg/dL Abnormal 100-199 [facility]; [facility] Work Phone: Cholesterol in HDL [Mass/Vol] 71 mg/dL Normal [facility]; [facility] Work Phone: Cholesterol in LDL [Mass/Vol] 132 mg/dL Abnormal 0-99 [facility]; [facility] Work Phone: Cholesterol in LDL/Cholesterol in HDL [Mass ratio] 1.9 {ratio_units} Normal 0.0-3.2 [facility] Internal Medicine; [facility] Work Phone: Cholesterol in VLDL [Mass/Vol] 20 mg/dL Normal 5-40 [facility]; [facility] Work Phone: Triglyceride [Mass/Vol] 100 mg/dL Normal 0-149 [facility] Internal Medicine; [facility] Internal Medicine Work Phone: METABOLIC PANEL, COMPREHENSI VE ([phone])Ordered By: Hat Sprayer on 12-09-2015 Albumin [Mass/Vol] 3.9 g/dL Normal 3.5-4.8 [facility] Internal Medicine; [facility] Internal Medicine Work Phone: Albumin/Globulin [Mass ratio] 2.0 {ratio} Normal 1.1-2.5 [facility] Internal Medicine; [facility] Internal Medicine Work Phone: ALP [Catalytic activity/Vol] 48 U/L Normal 39-117 [facility] Internal Medicine; [facility] Internal Medicine Work Phone: ALT [Catalytic activity/Vol] 12 U/L Normal 0-32 [facility] Internal Medicine; [facility] Internal Medicine Work Phone: AST [Catalytic activity/Vol] 14 U/L Normal 0-40 [facility] Internal Medicine; [facility] Internal Medicine Work Phone: Bilirubin [Mass/Vol] 0.9 mg/dL Normal 0.0-1.2 [facility] Internal [facility] Work Phone: Calcium [Mass/Vol] 9.3 mg/dL Normal 8.7-10.3 [facility] Internal Medicine; [facility] Internal Medicine Work Phone: Chloride [Moles/Vol] 103 mmol/L Normal 97-108 [facility] Internal Medicine; [facility] Internal Medicine Work Phone: CO2 [Moles/Vol] 24 mmol/L Normal 18-29 [facility] Internal Medicine; [facility] Internal Medicine Work Phone: Creatinine [Mass/Vol] 0.60 mg/dL Normal 0.57-1.00 [facility] prehensive Internal Medicine; [facility] Work Phone: GFR/1.73 sq M.predicted among blacks CKD-EPI (S/P/Bld) [Vol rate/Area] 105 mL/min/1.73 Normal [facility]; [facility] Work Phone: GFR/1.73 sq M.predicted among non-blacks CKD-EPI (S/P/Bld) [Vol rate/Area] 91 mL/min/1.73 Normal [facility]; [facility] Work Phone: Globulin (S) [Mass/Vol] 2.0 g/dL Normal 1.5-4.5 [facility] Internal Medicine; [facility] Work Phone: Glucose [Mass/Vol] 98 mg/dL Normal 65-99 [facility]; [facility] Work Phone: Potassium [Moles/Vol] 4.2 mmol/L Normal 3.5-5.2 [facility] prehensive Internal Medicine; [facility] Work Phone: Protein [Mass/Vol] 5.9 g/dL Abnormal 6.0-8.5 [facility] Internal Medicine; [facility] Work Phone: Sodium [Moles/Vol] 143 mmol/L Normal 134-144 [facility] Internal Medicine; [facility] Work Phone: Urea nitrogen [Mass/Vol] 16 mg/dL Normal 8-27 [facility] Internal Medicine; [facility] Work Phone: Urea nitrogen/Creatinine [Mass ratio] 27 mg/mg Abnormal 11-26 [facility] Internal Medicine; [facility] Work Phone: URINALYSIS, W/ MICRO ([phone]) Ordered By: Hat Sprayer on 12-09-2015 Appearance (U) Clear Normal Comprehens [...] (U) Negative Normal Comprehens tonya Internal Medicine; [facility] Internal Medicine Work Phone: Leukocyte esterase Test strip Ql (U) 1+ Abnormal [facility]; [facility] Work Phone: Microscopic observation LM Nom (Urine sed) See below: Normal [facility]; [facility] Internal Medicine Work Phone: Nitrite Ql (U) Negative Normal Comprehens tonya Internal Medicine; [facility] Internal Medicine Work Phone: pH (U) 6.5 [pH] Normal 5.0-7.5 [facility]; [facility] Internal Medicine Work Phone: Protein Ql (U) Negative Normal Comprehens tonya Internal Medicine; [facility] Internal Medicine Work Phone: Specific gravity (U) [Rel density] 1.018 1 Normal 1.005-1.030 [facility]; [facility] Work Phone: Urobilinogen (U) [Mass/Vol] 0.2 mg/dL Normal 0.2-1.0 [facility]; [facility] Internal Medicine Work Phone: Vitamin D Hydroxy ([phone])Ord ered By: Hat Sprayer on 12-09-2015 25-hydroxyvitamin D [Mass/Vol] 75.7 ng/mL Normal 30.0-100.0 [facility]; [facility] Internal Medicine Work Phone: CBC, Platelets & Auto Diff ( [phone])Ordered By: Hat Sprayer on 11-12-2015 Basophils (Bld) [#/Vol] 0.0 10*3/uL Normal 0.0-0.2 [facility]; [facility] Work Phone: Basophils/100 WBC (Bld) 1 % Normal [facility]; [facility] Internal Medicine Work Phone: Eosinophils (Bld) [#/Vol] [...] MCHC (RBC) [Mass/Vol] 32.5 g/dL Normal 31.5-35.7 [facility] prehensive Internal Medicine; [facility] Work Phone: MCV (RBC) [Entitic vol] 92 fL Normal 79-97 [facility]; [facility] Work Phone: Monocytes (Bld) [#/Vol] 0.3 10*3/uL Normal 0.1-0.9 [facility]; [facility] Work Phone: Monocytes/100 WBC (Bld) 6 % Normal [facility]; [facility] Work Phone: Neutrophils (Bld) [#/Vol] 2.5 10*3/uL Normal 1.4-7.0 [facility]; [facility] Work Phone: Neutrophils/100 WBC (Bld) 44 % Normal [facility] Internal Medicine; [facility] Internal Medicine Work Phone: Platelets (Bld) [#/Vol] 226 10*3/uL Normal 150-379 [facility]; [facility] Internal Medicine Work Phone: RBC (Bld) [#/Vol] 4.30 10*6/uL Normal 3.77-5.28 [facility] Internal Medicine; [facility] Internal Medicine Work Phone: WBC (Bld) [#/Vol] 5.6 10*3/uL Normal 3.4-10.8 [facility] Internal Medicine; [facility] Internal Medicine Work Phone: Metabolic Panel, Comprehensi ve ([phone])Ordered By: Hat Sprayer on 11-12-2015 Albumin [Mass/Vol] 4.0 g/dL Normal 3.5-4.8 [facility] Internal Medicine; [facility] Internal Medicine Work Phone: Albumin/Globulin [Mass ratio] 2.0 {ratio} Normal 1.1-2.5 [facility] Internal Medicine; [facility] Internal Medicine Work Phone: ALP [Catalytic activity/Vol] 46 U/L Normal 39-117 [facility]; [facility] Internal Medicine Work Phone: ALT [Catalytic activity/Vol] 12 U/L Normal 0-32 [facility] Internal Medicine; [facility] Internal Medicine Work Phone: AST [Catalytic activity/Vol] 16 U/L Normal 0-40 [facility] Internal Medicine; [facility] Internal Medicine Work Phone: Bilirubin [Mass/Vol] 0.8 mg/dL Normal 0.0-1.2 [facility] Internal Medicine; [facility] Internal Medicine Work Phone: Calcium [Mass/Vol] 9.0 mg/dL Normal 8.7-10.3 [facility] Internal Medicine; [facility] Internal Medicine Work Phone: Chloride [Moles/Vol] 102 mmol/L Normal 97-108 [facility]; [facility] Work Phone: CO2 [Moles/Vol] 24 mmol/L Normal 18-29 [facility] Internal Medicine; [facility] Work Phone: Creatinine [Mass/Vol] 0.73 mg/dL Normal 0.57-1.00 [facility] Internal Medicine; [facility] Work Phone: GFR/1.73 sq M.predicted among blacks CKD-EPI (S/P/Bld) [Vol rate/Area] 94 mL/min/1.73 Normal [facility] Internal Medicine; [facility] Work Phone: GFR/1.73 sq M.predicted among non-blacks CKD-EPI (S/P/Bld) [Vol rate/Area] 82 mL/min/1.73 Normal [facility]; [facility] Work Phone: Globulin (S) [Mass/Vol] 2.0 g/dL Normal 1.5-4.5 [facility] Internal Medicine; [facility] Work Phone: Glucose [Mass/Vol] 88 mg/dL Normal 65-99 [facility] Internal Medicine; [facility] Work Phone: Potassium [Moles/Vol] 4.3 mmol/L Normal 3.5-5.2 [facility] Internal Medicine; [facility] Work Phone: Protein [Mass/Vol] 6.0 g/dL Normal 6.0-8.5 [facility] Internal Medicine; [facility] Work Phone: Sodium [Moles/Vol] 143 mmol/L Normal 134-144 [facility] Internal Medicine; [facility] Work Phone: Urea nitrogen [Mass/Vol] 11 mg/dL Normal 8-27 [facility] Internal Medicine; [facility] Work Phone: Urea nitrogen/Creatinine [Mass ratio] 15 mg/mg Normal 11-26 [facility] Internal Medicine; [facility] Work Phone: PT (PROTHROMBIN TIME) ([id number] )Ordered By: Hat Sprayer on 11-12-2015 INR Coag (PPP) [Relative time] 1.0 {INR} Normal 0.8-1.2 [facility]; [facility] Work Phone: PT Coag (PPP) [Time] 10.5 s Normal 9.1-12.0 Comp rehensive Internal Medicine; [facility] Work Phone: Urinalysis, Office ([phone])on 11-12-2015 Bilirubin Ql (U) Negative Normal Comprehe [...] Work Phone: pH (U) 6.5 [pH] Normal [facility]; [facility] Work Phone: Protein Ql (U) Negative Normal Comprehens tonya Internal Medicine; [facility] Work Phone: Specific gravity (U) [Rel density] 1.005 1 Normal [facility]; [facility] Work Phone: Urobilinogen (24H U) [Mass/Time] Normal Normal [facility]; [facility] Work Phone: URINE CALCIUM SAMANTHA TIMED 24 Hour ([phone])Ordered By: Hat Sprayer on 06-13-2015 Calcium (24H U) [Mass/Time] 160.0 {mg/24_hr} Normal 100.0-300.0 [facility]; [facility] Work Phone: Calcium (24H U) [Mass/Vol] 5.0 mg/dL Normal [facility]; [facility] Work Phone: HgA1C , Office ([phone])Ordere d By: Catherine Magana on 06-11-2015 HbA1c (Bld) [Mass fraction] 5.3 % Normal 4.6 - 7.1 [facility]; [facility] Work Phone: POTASSIUM SERUM ([phone])Order ed By: Hat Sprayer on 06-03-2015 Potassium [Moles/Vol] 4.2 mmol/L Normal 3.5-5.1 [facility] prehensive Internal Medicine; [facility] Work Phone: LIPID PANEL ([phone])Ordered B y: Hat Sprayer on 06-02-2015 Cholesterol [Mass/Vol] 230 mg/dL Abnormal [...] Phone: Triglyceride [Mass/Vol] 97 mg/dL Normal 0-149 [facility]; [facility] Work Phone: METABOLIC PANEL, COMPREHENSI VE ([phone])Ordered By: Hat Sprayer on 06-02-2015 Albumin [Mass/Vol] 4.2 g/dL Normal 3.5-4.8 [facility] Internal Medicine; [facility] Work Phone: Albumin/Globulin [Mass ratio] 1.8 {ratio} Normal 1.1-2.5 [facility]; [facility] Work Phone: ALP [Catalytic activity/Vol] 53 U/L Normal 39-117 [facility]; [facility] Work Phone: ALT [Catalytic activity/Vol] 14 U/L Normal 0-32 [facility]; [facility] Work Phone: AST [Catalytic activity/Vol] 15 U/L Normal 0-40 [facility] Internal Medicine; [facility] Work Phone: Bilirubin [Mass/Vol] 0.7 mg/dL Normal 0.0-1.2 [facility] Internal Medicine; [facility] Internal Medicine Work Phone: Calcium [Mass/Vol] 9.3 mg/dL Normal 8.7-10.3 [facility] Internal Medicine; [facility] Work Phone: Chloride [Moles/Vol] 104 mmol/L Normal 97-108 [facility] Internal Medicine; [facility] Internal Medicine Work Phone: CO2 [Moles/Vol] 25 mmol/L Normal 18-29 [facility] Internal Medicine; [facility] Internal Medicine Work Phone: Creatinine [Mass/Vol] 0.58 mg/dL Normal 0.57-1.00 [facility] Internal Medicine; [facility] Internal Medicine Work Phone: GFR/1.73 sq M.predicted among blacks CKD-EPI (S/P/Bld) [Vol rate/Area] 106 mL/min/1.73 Normal [facility] Internal Medicine; [facility] Internal Medicine Work Phone: GFR/1.73 sq M.predicted among non-blacks CKD-EPI (S/P/Bld) [Vol rate/Area] 92 mL/min/1.73 Normal [facility] Internal Medicine; [facility] Internal Medicine Work Phone: Globulin (S) [Mass/Vol] 2.4 g/dL Normal 1.5-4.5 [facility] Internal Medicine; [facility] Internal Medicine Work Phone: Glucose [Mass/Vol] 98 mg/dL Normal 65-99 [facility] Internal Medicine; [facility] Internal Medicine Work Phone: Potassium [Moles/Vol] 6.5 mmol/L Abnormal 3.5-5.2 [facility] Internal Medicine; [facility] Internal Medicine Work Phone: Protein [Mass/Vol] 6.6 g/dL Normal 6.0-8.5 [facility] Internal Medicine; [facility] Internal Medicine Work Phone: Sodium [Moles/Vol] 144 mmol/L Normal 134-144 [facility]; [facility] Work Phone: Urea nitrogen [Mass/Vol] 15 mg/dL Normal 8-27 [facility]; [facility] Work Phone: Urea nitrogen/Creatinine [Mass ratio] 26 mg/mg Normal 11-26 [facility]; [facility] Work Phone: Hemoglobin Glyclated (HGB A1 C) ([id number])Ordered By: Catherine Magana on 12-11-2014 HbA1c (Bld) [Mass fraction] 5.7 % Normal 4.6 - 7.1 [facility]; [facility] Work Phone: LIPID PANEL ([id number])Ordered B y: Hat Sprayer on 12-03-2014 Cholesterol [Mass/Vol] 190 mg/dL Normal 100-199 [facility]; [facility] Work Phone: Cholesterol in HDL [Mass/Vol] 58 mg/dL Normal [facility]; [facility] Work Phone: Cholesterol in LDL [Mass/Vol] 114 mg/dL Abnormal 0-99 [facility]; [facility] Work Phone: Cholesterol in LDL/Cholesterol in HDL [Mass ratio] 2.0 {ratio_units} Normal 0.0-3.2 [facility]; [facility] Work Phone: Cholesterol in VLDL [Mass/Vol] 18 mg/dL Normal 5-40 [facility]; [facility] Work Phone: Triglyceride [Mass/Vol] 89 mg/dL Normal 0-149 [facility]; [facility] Work Phone: METABOLIC PANEL, COMPREHENSI VE ([phone])Ordered By: Hat Sprayer on 12-03-2014 Albumin [Mass/Vol] 4.0 g/dL Normal 3.5-4.8 [facility] Internal Medicine; [facility] Work Phone: Albumin/Globulin [Mass ratio] 1.9 {ratio} Normal 1.1-2.5 [facility]; [facility] Work Phone: ALP [Catalytic activity/Vol] 65 U/L Normal 39-117 [facility] Internal [facility]; [facility] Work Phone: ALT [Catalytic activity/Vol] 10 U/L Normal 0-32 [facility] Internal Medicine; [facility] Medicine Work Phone: AST [Catalytic activity/Vol] 11 U/L Normal 0-40 [facility] Internal Medicine; [facility] Medicine Work Phone: Bilirubin [Mass/Vol] 0.8 mg/dL Normal 0.0-1.2 [facility]; [facility] Work Phone: Calcium [Mass/Vol] 9.0 mg/dL Normal 8.7-10.3 [facility] Internal Medicine; [facility] Internal Medicine Work Phone: Chloride [Moles/Vol] 104 mmol/L Normal 97-108 [facility] Internal Medicine; [facility] Internal Medicine Work Phone: CO2 [Moles/Vol] 23 mmol/L Normal 18-29 [facility] Internal Medicine; [facility] Internal Medicine Work Phone: Creatinine [Mass/Vol] 0.57 mg/dL Normal 0.57-1.00 [facility] Internal [facility] Work Phone: GFR/1.73 sq M.predicted among blacks CKD-EPI (S/P/Bld) [Vol rate/Area] 107 mL/min/1.73 Normal [facility] Internal Medicine; [facility] Internal Medicine Work Phone: GFR/1.73 sq M.predicted among non-blacks CKD-EPI (S/P/Bld) [Vol rate/Area] 93 mL/min/1.73 Normal [facility] Internal Medicine; [facility] Internal Medicine Work Phone: Globulin (S) [Mass/Vol] 2.1 g/dL Normal 1.5-4.5 [facility] Internal Medicine; [facility] Internal Medicine Work Phone: Glucose [Mass/Vol] 116 mg/dL Abnormal 65-99 [facility] Internal Medicine; [facility] Internal Medicine Work Phone: Potassium [Moles/Vol] 4.3 mmol/L Normal 3.5-5.2 Com pre[facility]; [facility] Work Phone: Protein [Mass/Vol] 6.1 g/dL Normal 6.0-8.5 [facility] Internal Medicine; [facility] Internal Medicine Work Phone: Sodium [Moles/Vol] 143 mmol/L Normal 134-144 [facility] Internal Medicine; [facility] Internal Medicine Work Phone: Urea nitrogen [Mass/Vol] 14 mg/dL Normal 8-27 [facility] Internal Medicine; [facility] Internal Medicine Work Phone: Urea nitrogen/Creatinine [Mass ratio] 25 mg/mg Normal 11-26 [facility] Internal Medicine; [facility] Internal Medicine Work Phone: PARATHORMONE ([phone])Ordered By: Hat Sprayer on 12-03-2014 Parathyrin.intact [Mass/Vol] 28 pg/mL Normal 15-65 [facility] Internal Medicine; [facility] Internal Medicine Work Phone: PHOSPHORUS ([phone])Ordered By : Hat Sprayer on 12-03-2014 Phosphate [Mass/Vol] 3.8 mg/dL Normal 2.5-4.5 [facility] Internal Medicine; [facility] Internal Medicine Work Phone: TSH ([phone])Ordered By: Joy m Intensive Care Unit Nurse on 12-03-2014 TSH Qn 1.600 {uIU/mL} Normal 0.450-4.500 [facility] Internal Medicine; [facility] Internal Medicine Work Phone: Vitamin D Hydroxy ([phone])Ord ered By: Hat Sprayer on 12-03-2014 25-hydroxyvitamin D [Mass/Vol] 63.3 ng/mL Normal 30.0-100.0 [facility] Internal Medicine; [facility] Internal Medicine Work Phone: HgA1C , Office ([phone])Ordere d By: Irina Waddell on 09-11-2014 HbA1c (Bld) [Mass fraction] 5.8 % Normal 4.6 - 7.1 [facility] Internal Medicine; [facility] Medicine Work Phone: CBC W/AUTO DIFF WBC ([id number])O rdered By: Hat Sprayer on 02-26-2014 Basophils (Bld) [#/Vol] 0.0 10*3/uL [...] MCHC (RBC) [Mass/Vol] 32.9 g/dL Normal 31.5-35.7 [facility] prehensive Internal Medicine; [facility] [...] Phone: Neutrophils/100 WBC (Bld) 48 % Normal [facility]; [facility] Work Phone: Platelets (Bld) [#/Vol] 281 10*3/uL Normal 150-379 [facility]; [facility] Work Phone: RBC (Bld) [#/Vol] 4.60 10*6/uL Normal 3.77-5.28 Compr ehensive Internal Medicine; [facility] Work Phone: WBC (Bld) [#/Vol] 6.3 10*3/uL Normal 3.4-10.8 Compre hensive Internal Medicine; [facility] Work Phone: Hemoglobin Glyclated (HGB A1 C) ([id number])Ordered By: Hat Sprayer on 02-26-2014 HbA1c (Bld) [Mass fraction] 5.7 % Abnormal 4.8-5.6 [facility]; [facility] Work Phone: LIPID PANEL ([id number])Ordered B y: Hat Sprayer on 02-26-2014 Cholesterol [Mass/Vol] 193 mg/dL Normal [...] in VLDL [Mass/Vol] 19 mg/dL Normal 5-40 [facility] Internal Medicine; [facility] Work Phone: Triglyceride [Mass/Vol] 94 mg/dL Normal 0-149 [facility]; [facility] Work Phone: [facility] ([id number])Ordered By: Hat Sprayer on 02-26-2014 Albumin [Mass/Vol] 4.0 g/dL Normal 3.5-4.8 [facility] Internal Medicine; [facility] Work Phone: Albumin/Globulin [Mass ratio] 2.0 {ratio} Normal 1.1-2.5 [facility] Internal [facility]; [facility] Work Phone: ALP [Catalytic activity/Vol] 70 U/L Normal 39-117 [facility] Internal Medicine; [facility] Work Phone: ALT [Catalytic activity/Vol] 13 U/L Normal 0-32 [facility] Internal [facility]; [facility] Work Phone: AST [Catalytic activity/Vol] 16 U/L Normal 0-40 [facility] Internal Medicine; [facility] Work Phone: Bilirubin [Mass/Vol] 0.4 mg/dL Normal 0.0-1.2 [facility] Internal Medicine; [facility] Work Phone: Calcium [Mass/Vol] 9.3 mg/dL Normal 8.6-10.2 [facility] Internal Medicine; [facility] Work Phone: Chloride [Moles/Vol] 103 mmol/L Normal 97-108 [facility] Work Phone: CO2 [Moles/Vol] 24 mmol/L Normal 18-29 [facility] Internal Medicine; [facility] Work Phone: Creatinine [Mass/Vol] 0.75 mg/dL Normal 0.57-1.00 [facility] Internal Medicine; [facility] Internal Medicine Work Phone: GFR/1.73 sq M.predicted among blacks CKD-EPI (S/P/Bld) [Vol rate/Area] 92 mL/min/1.73 Normal [facility]; [facility] Work Phone: GFR/1.73 sq M.predicted among non-blacks CKD-EPI (S/P/Bld) [Vol rate/Area] 80 mL/min/1.73 Normal [facility]; [facility] Work Phone: Globulin (S) [Mass/Vol] 2.0 g/dL Normal 1.5-4.5 [facility] Internal [facility]; [facility] Work Phone: Glucose [Mass/Vol] 101 mg/dL Abnormal 65-99 [facility] Internal Medicine; [facility] Work Phone: Potassium [Moles/Vol] 4.5 mmol/L Normal 3.5-5.2 [facility] prehensive Internal Medicine; [facility] Work Phone: Protein [Mass/Vol] 6.0 g/dL Normal 6.0-8.5 [facility] Internal Medicine; [facility] Work Phone: Sodium [Moles/Vol] 142 mmol/L Normal 134-144 [facility] Internal Medicine; [facility] Work Phone: Urea nitrogen [Mass/Vol] 14 mg/dL Normal 8-27 [facility] Internal [facility]; [facility] Work Phone: Urea nitrogen/Creatinine [Mass ratio] 19 mg/mg Normal 11-26 [facility] Internal Medicine; [facility] Work Phone: TSH ([id number])Ordered By: Joy m Intensive Care Unit Nurse on 02-26-2014 TSH Qn 1.700 {uIU/mL} Normal 0.450-4.500 Comprehen [facility]; [facility] Work Phone: Urinalysis, Office ([phone])Or dered By: Tabitha Bianchi on 09-21-2013 Bilirubin Ql (U) Negative Normal Comprehe ive Internal Medicine; [facility] Work Phone: [...] Phone: URINE IGOR CULTURE (SAMANTHA COL COUNT) ([id number])Ordered By: Hat Sprayer on 09-10-2013 Bacteria identified Cx Nom (U) Final report Abnormal [facility]; [facility] Work Phone: Bacteria identified Cx Nom (U) ENTEAE Abnormal [facility]; [facility] Work Phone: Urinalysis, Office ([id number])Or dered By: Tabitha Bianchi on 09-10-2013 Bilirubin [...] Medicine Work Phone: URINE IGOR CULTURE-IDENTIFICA [place] ([phone])Ordered By: Hat Sprayer on 08-10-2013 Bacteria identified Cx Nom (U) Final report Abnormal [facility]; [facility] Work Phone: Bacteria identified Cx Nom (U) Enterococcus faecalis Abnormal Comprehens tonya Internal Medicine; [facility] Work Phone: Other Antibiotic [Susc] MIHEAD Normal [facility]; [facility] Work Phone: Urinalysis, Office ([phone])Or dered By: Kirsten Pearson on 08-10-2013 Bilirubin [...] Medicine Work Phone: URINE IGOR CULTURE-IDENTIFICA [place] ([phone])Ordered By: Hat Sprayer on 07-26-2013 Bacteria identified Cx Nom (U) Final report Abnormal [facility]; [facility] Work Phone: Bacteria identified Cx Nom (U) ENTEAE Abnormal [facility]; [facility] Work Phone: Urinalysis, Office ([phone])Or dered By: Kirsten Pearson on 07-26-2013 Bilirubin Ql (U) Negative Normal Comprehe nsive Internal Medicine; [facility] Work Phone: Glucose Test strip (U) [Mass/Vol] Negative Normal [facility]; [facility] Work Phone: Hemoglobin Ql (U) Hemolyzed Small Normal Co mprehensive Internal Medicine; [facility] [...] Internal Medicine Work Phone: HgA1C , Office ([phone])Ordere d By: Catherine Magana on 06-01-2013 HbA1c (Bld) [Mass fraction] 6.00 % Normal 4.6 - 7.1 [facility]; [facility] Work Phone: CALCIFEDIOL ([phone])Ordered B y: Hat Sprayer on 05-24-2013 25-hydroxyvitamin D [Mass/Vol] 74.3 ng/mL Normal 30.0-100.0 [facility]; [facility] Work Phone: CBC, PLATELETS & MANUAL DIFF ([phone])Ordered By: Hat Sprayer on 05-24-2013 Basophils (Bld) [#/Vol] 0.0 10*3/uL [...] MCHC (RBC) [Mass/Vol] 32.6 g/dL Normal 31.5-35.7 [facility] prehensive Internal Medicine; [facility] [...] RBC (Bld) [#/Vol] 5.03 10*6/uL Normal 3.77-5.28 [facility] ehensive Internal Medicine; [facility] Work Phone: WBC (Bld) [#/Vol] 7.5 10*3/uL Normal 3.4-10.8 [facility]; [facility] Work Phone: LIPID PANEL ([phone])Ordered B y: Hat Sprayer on 05-24-2013 Cholesterol [Mass/Vol] 231 mg/dL Abnormal 100-199 [facility]; [facility] Work Phone: Cholesterol in HDL [Mass/Vol] 63 mg/dL Normal [facility]; [facility] Work Phone: Cholesterol in LDL [Mass/Vol] 136 mg/dL Abnormal 0-99 [facility]; [facility] Work Phone: Cholesterol in LDL/Cholesterol in HDL [Mass ratio] 2.2 {ratio_units} Normal 0.0-3.2 [facility] Internal Medicine; [facility] Work Phone: Cholesterol in VLDL [Mass/Vol] 32 mg/dL Normal 5-40 [facility] Internal [facility]; [facility] Work Phone: Triglyceride [Mass/Vol] 161 mg/dL Abnormal 0-149 [facility] Internal Medicine; [facility] Internal Medicine Work Phone: METABOLIC PANEL, COMPREHENSI VE ([phone])Ordered By: Hat Sprayer on 05-24-2013 Albumin [Mass/Vol] 4.4 g/dL Normal 3.5-4.8 [facility] Internal Medicine; [facility] Internal Medicine Work Phone: Albumin/Globulin [Mass ratio] 1.8 {ratio} Normal 1.1-2.5 [facility] Internal Medicine; [facility] Internal Medicine Work Phone: ALP [Catalytic activity/Vol] 77 U/L Normal 39-117 [facility] Internal Medicine; [facility] Internal Medicine Work Phone: ALT [Catalytic activity/Vol] 19 U/L Normal 0-32 [facility] Internal Medicine; [facility] Internal Medicine Work Phone: AST [Catalytic activity/Vol] 19 U/L Normal 0-40 [facility] Internal Medicine; [facility] Internal Medicine Work Phone: Bilirubin [Mass/Vol] 0.7 mg/dL Normal 0.0-1.2 [facility]; [facility] Work Phone: Calcium [Mass/Vol] 9.7 mg/dL Normal 8.6-10.2 [facility] Internal Medicine; [facility] Internal Medicine Work Phone: Chloride [Moles/Vol] 103 mmol/L Normal 97-108 [facility] Internal Medicine; [facility] Internal Medicine Work Phone: CO2 [Moles/Vol] 24 mmol/L Normal 19-28 [facility] Internal Medicine; [facility] Internal Medicine Work Phone: Creatinine [Mass/Vol] 0.73 mg/dL Normal 0.57-1.00 [facility] prehensive Internal Medicine; [facility] Work Phone: GFR/1.73 sq M.predicted among blacks CKD-EPI (S/P/Bld) [Vol rate/Area] 96 mL/min/1.73 Normal [facility]; [facility] Work Phone: GFR/1.73 sq M.predicted among non-blacks CKD-EPI (S/P/Bld) [Vol rate/Area] 83 mL/min/1.73 Normal [facility] Internal Medicine; [facility] Work Phone: Globulin (S) [Mass/Vol] 2.4 g/dL Normal 1.5-4.5 [facility] Internal Medicine; [facility] Work Phone: Glucose [Mass/Vol] 105 mg/dL Abnormal 65-99 [facility] Internal Medicine; [facility] Work Phone: Potassium [Moles/Vol] 4.1 mmol/L Normal 3.5-5.2 [facility] prehensive Internal Medicine; [facility] Work Phone: Protein [Mass/Vol] 6.8 g/dL Normal 6.0-8.5 [facility] Internal Medicine; [facility] Work Phone: Sodium [Moles/Vol] 141 mmol/L Normal 134-144 [facility] Internal Medicine; [facility] Work Phone: Urea nitrogen [Mass/Vol] 14 mg/dL Normal 8-27 [facility]; [facility] Work Phone: Urea nitrogen/Creatinine [Mass ratio] 19 mg/mg Normal 11-26 [facility] Internal [facility]; [facility] Work Phone: MICROALB;CREAT RATION, [place] ([phone])Ordered By: Hat Sprayer on 05-24-2013 Albumin DL <= 20 mg/L (U) [Mass/Vol] 9.4 ug/mL Normal 0.0-17.0 [facility] Internal Medicine; [facility] Work Phone: Albumin/Creatinine (U) [Mass ratio] 6.9 {mg/g_creat} Normal 0.0-30.0 [facility]; [facility] Work Phone: Creatinine (U) [Mass/Vol] 137.2 mg/dL Normal 15.0-278.0 [facility]; [facility] Work Phone: TSH (THYROID STIMULATING HOR YAJAIRA) ([id number])Ordered By: Hat Sprayer on 05-24-2013 TSH Qn 2.290 {uIU/mL} Normal 0.450-4.500 Comprehen sive Internal Medicine; [facility] Work Phone: HgA1C , Office ([phone])Ordere d By: Irina Waddell on 07-12-2012 HbA1c (Bld) [Mass fraction] 5.8 % Normal 4.6 - 7.1 [facility]; [facility] Work Phone: URINE IGOR CULTURE-IDENTIFICA [place] ([phone])Ordered By: Hat Sprayer on 07-10-2012 Bacteria identified Cx Nom (U) Final report Normal [facility]; [facility] Work Phone: Bacteria identified Cx Nom (U) Escherichia coli Normal [facility]; [facility] Work Phone: Other Antibiotic [Susc] MIHEAD Normal [facility]; [facility] Work Phone: Urinalysis, Office ([phone])Or dered By: Brenda Moyer on 07-10-2012 Bilirubin [...] Medicine Work Phone: CBC with manual diff ([phone]) Ordered By: Hat Sprayer on 07-03-2012 Basophils (Bld) [#/Vol] 0.0 10*3/uL [...] MCHC (RBC) [Mass/Vol] 32.3 g/dL Normal 31.5-35.7 [facility] prehensive Internal Medicine; [facility] [...] RBC (Bld) [#/Vol] 4.71 10*6/uL Normal 3.77-5.28 [facility] ehensive Internal Medicine; [facility] Work Phone: WBC (Bld) [#/Vol] 7.2 10*3/uL Normal 4.0-10.5 [facility]; [facility] Work Phone: Lipid Panel ([id number])Ordered B y: Hat Sprayer on 07-03-2012 Cholesterol [Mass/Vol] 189 mg/dL Normal [...] 100 mg/dL Normal 0-149 [facility]; [facility] Internal Medicine Work Phone: Metabolic Panel, Comprehensi ve ([phone])Ordered By: Hat Sprayer on 07-03-2012 Albumin [Mass/Vol] 4.1 g/dL Normal 3.5-4.8 [facility]; [facility] Work Phone: Albumin/Globulin [Mass ratio] 1.9 {ratio} Normal 1.1-2.5 [facility]; [facility] Work Phone: ALP [Catalytic activity/Vol] 76 U/L Normal 25-165 [facility] Internal [facility]; [facility] Work Phone: ALT [Catalytic activity/Vol] 19 U/L Normal 0-32 [facility]; [facility] Work Phone: AST [Catalytic activity/Vol] 23 U/L Normal 0-40 [facility] Internal Medicine; [facility] Medicine Work Phone: Bilirubin [Mass/Vol] 0.6 mg/dL Normal 0.0-1.2 [facility] Internal Medicine; [facility] Internal Medicine Work Phone: Calcium [Mass/Vol] 9.2 mg/dL Normal 8.6-10.2 [facility] Internal Medicine; [facility] Medicine Work Phone: Chloride [Moles/Vol] 103 mmol/L Normal 97-108 [facility]; [facility] Work Phone: CO2 [Moles/Vol] 22 mmol/L Normal 20-32 [facility] Internal Medicine; [facility] Work Phone: Creatinine [Mass/Vol] 0.72 mg/dL Normal 0.57-1.00 [facility] Internal [facility]; [facility] Work Phone: GFR/1.73 sq M.predicted among blacks CKD-EPI (S/P/Bld) [Vol rate/Area] 98 mL/min/1.73 Normal [facility] Internal [facility]; [facility] Work Phone: GFR/1.73 sq M.predicted among non-blacks CKD-EPI (S/P/Bld) [Vol rate/Area] 85 mL/min/1.73 Normal [facility] Internal [facility]; [facility] Work Phone: Globulin (S) [Mass/Vol] 2.2 g/dL Normal 1.5-4.5 [facility]; [facility] Work Phone: Glucose [Mass/Vol] 105 mg/dL Abnormal 65-99 [facility] Internal Medicine; [facility] Work Phone: Potassium [Moles/Vol] 4.2 mmol/L Normal 3.5-5.2 [facility]; [facility] Work Phone: Protein [Mass/Vol] 6.3 g/dL Normal 6.0-8.5 [facility] Internal Medicine; [facility] Work Phone: Sodium [Moles/Vol] 141 mmol/L Normal 134-144 [facility] Internal Medicine; [facility] Work Phone: Urea nitrogen [Mass/Vol] 13 mg/dL Normal 8-27 [facility]; [facility] Work Phone: Urea nitrogen/Creatinine [Mass ratio] 18 mg/mg Normal 11-26 [facility]; [facility] Work Phone: URINE IGOR CULTURE-SAMANTHA COL C OUNT ([id number])Ordered By: Hat Sprayer on 06-20-2012 Bacteria identified Cx Nom (U) Final report Normal [facility]; [facility] Work Phone: Bacteria identified Cx Nom (U) ENTEAE Normal [facility]; [facility] Work Phone: Urinalysis, Office ([phone])Or dered By: Enriqueta Gibson on 06-20-2012 Bilirubin [...] Work Phone: Hemoglobin Glyclated (HGB A1 C) ([id number])Ordered By: Catherine Magana on 03-08-2012 HbA1c (Bld) [Mass fraction] 5.8 % Normal 4.6 - 7.1 [facility]; [facility] Work Phone: URINE IGOR CULTURE-IDENTIFICA [place] ([phone])Ordered By: Hat Sprayer on 03-08-2012 Bacteria identified Cx Nom (U) Final report Normal [facility]; [facility] Work Phone: Bacteria identified Cx Nom (U) MUG Normal [facility]; [facility] Work Phone: Urinalysis, Office ([phone])Or dered By: Vicki Hinson on 03-08-2012 Bilirubin [...] Medicine Work Phone: CBC WITH MANUAL DIFF ([id number]) Ordered By: Hat Sprayer on 02-29-2012 Basophils (Bld) [#/Vol] 0.0 10*3/uL [...] MCHC (RBC) [Mass/Vol] 33.1 g/dL Normal 31.5-35.7 [facility] prehensive Internal Medicine; [facility] [...] RBC (Bld) [#/Vol] 4.66 10*6/uL Normal 3.77-5.28 Compr ehensive Internal Medicine; [facility] Work Phone: WBC (Bld) [#/Vol] 5.1 10*3/uL Normal 4.0-10.5 [facility]; [facility] Work Phone: LIPID PANEL ([phone])Ordered B y: Hat Sprayer on 02-29-2012 Cholesterol [Mass/Vol] 170 mg/dL Normal 100-199 [facility]; [facility] Work Phone: Cholesterol in HDL [Mass/Vol] 49 mg/dL Normal [facility]; [facility] Work Phone: Cholesterol in LDL [Mass/Vol] 96 mg/dL Normal 0-99 [facility]; [facility] Work Phone: Cholesterol in LDL/Cholesterol in HDL [Mass ratio] 2.0 {ratio_units} Normal 0.0-3.2 [facility]; [facility] Work Phone: Cholesterol in VLDL [Mass/Vol] 25 mg/dL Normal 5-40 [facility]; [facility] Work Phone: Triglyceride [Mass/Vol] 127 mg/dL Normal 0-149 [facility]; [facility] Work Phone: METABOLIC PANEL, COMPREHENSI VE ([phone])Ordered By: Hat Sprayer on 02-29-2012 Albumin [Mass/Vol] 3.9 g/dL Normal 3.5-4.8 [facility]; [facility] Work Phone: Albumin/Globulin [Mass ratio] 1.7 {ratio} Normal 1.1-2.5 [facility]; [facility] Work Phone: ALP [Catalytic activity/Vol] 70 U/L Normal 25-165 [facility] Internal Medicine; [facility] Work Phone: ALT [Catalytic activity/Vol] 26 U/L Normal 0-32 [facility] Internal [facility]; [facility] Work Phone: AST [Catalytic activity/Vol] 22 U/L Normal 0-40 [facility] Internal [facility]; [facility] Work Phone: Bilirubin [Mass/Vol] 0.8 mg/dL Normal 0.0-1.2 [facility]; [facility] Work Phone: Calcium [Mass/Vol] 9.2 mg/dL Normal 8.6-10.2 [facility] Internal Medicine; [facility] Internal Medicine Work Phone: Chloride [Moles/Vol] 104 mmol/L Normal 97-108 [facility] Internal Medicine; [facility] Work Phone: CO2 [Moles/Vol] 23 mmol/L Normal 20-32 [facility] Internal Medicine; [facility] Internal Medicine Work Phone: Creatinine [Mass/Vol] 0.77 mg/dL Normal 0.57-1.00 [facility] prehensive Internal Medicine; [facility] Internal Medicine Work Phone: GFR/1.73 sq M.predicted among blacks CKD-EPI (S/P/Bld) [Vol rate/Area] 90 mL/min/1.73 Normal [facility] Internal [facility]; [facility] Work Phone: GFR/1.73 sq M.predicted among non-blacks CKD-EPI (S/P/Bld) [Vol rate/Area] 78 mL/min/1.73 Normal [facility] Internal Medicine; [facility] Medicine Work Phone: Globulin (S) [Mass/Vol] 2.3 g/dL Normal 1.5-4.5 [facility] Internal Medicine; [facility] Internal Medicine Work Phone: Glucose [Mass/Vol] 102 mg/dL Abnormal 65-99 [facility] Internal Medicine; [facility] Internal Medicine Work Phone: Potassium [Moles/Vol] 4.4 mmol/L Normal 3.5-5.2 [facility] prehensive Internal Medicine; [facility] Work Phone: Protein [Mass/Vol] 6.2 g/dL Normal 6.0-8.5 [facility] Internal [facility]; [facility] Work Phone: Sodium [Moles/Vol] 141 mmol/L Normal 134-144 [facility] Internal [facility]; [facility] Work Phone: Urea nitrogen [Mass/Vol] 11 mg/dL Normal 8-27 [facility]; [facility] Work Phone: Urea nitrogen/Creatinine [Mass ratio] 14 mg/mg Normal 11-26 [facility]; [facility] Work Phone: MICROALBUMINOrdered By: [employer] Intensive Care Unit Nurse on 02-29-2012 Albumin DL <= 20 mg/L (U) [Mass/Vol] 5.3 ug/mL Normal 0.0-17.0 [facility]; [facility] Work Phone: Albumin/Creatinine (U) [Mass ratio] 4.2 {mg/g_creat} Normal 0.0-30.0 [facility]; [facility] Work Phone: Creatinine (U) [Mass/Vol] 126.4 mg/dL Normal 15.0-278.0 [facility] Internal [facility]; [facility] Work Phone: TSH ([phone])Ordered By: [employer] m Intensive Care Unit Nurse on 02-29-2012 TSH Qn 1.770 {uIU/mL} Normal 0.450-4.500 [facility] Internal Medicine; [facility] Work Phone: Vitamin D Hydroxy ([phone])Ord ered By: Hat Sprayer on 02-29-2012 25-hydroxyvitamin D [Mass/Vol] 62.7 ng/mL Normal 30.0-100.0 [facility]; [facility] Work Phone: URINE IGOR CULTURE-IDENTIFICA [place] ([phone])Ordered By: Hat Sprayer on 11-12-2011 Bacteria identified Cx Nom (U) Final report Normal [facility]; [facility] Work Phone: Bacteria identified Cx Nom (U) MUG Normal [facility]; [facility] Work Phone: Urinalysis, Office ([phone])Or dered By: Jennifer Huang on 11-12-2011 Bilirubin [...] Internal Medicine Work Phone: HgA1C , Office ([phone])Ordere d By: Irina Waddell on 11-09-2011 HbA1c (Bld) [Mass fraction] 5.8 % Normal 4.6 - 7.1 [facility] Medicine; [facility] Work Phone: LIPID PANEL ([id number])Ordered B y: Hat Sprayer on 11-01-2011 Cholesterol [Mass/Vol] 212 mg/dL Abnormal 100-199 [facility]; [facility] Work Phone: Cholesterol in HDL [Mass/Vol] 67 mg/dL Normal [facility]; [facility] Work Phone: Cholesterol in LDL [Mass/Vol] 116 mg/dL Abnormal 0-99 [facility]; [facility] Work Phone: Cholesterol in LDL/Cholesterol in HDL [Mass ratio] 1.7 {ratio_units} Normal 0.0-3.2 [facility]; [facility] Work Phone: Cholesterol in VLDL [Mass/Vol] 29 mg/dL Normal 5-40 [facility]; [facility] Work Phone: Triglyceride [Mass/Vol] 146 mg/dL Normal 0-149 [facility]; [facility] Work Phone: METABOLIC PANEL, COMPREHENSI VE ([id number])Ordered By: Hat Sprayer on 11-01-2011 Albumin [Mass/Vol] 3.9 g/dL Normal 3.6-4.8 [facility] Internal Medicine; [facility] Work Phone: Albumin/Globulin [Mass ratio] 1.4 {ratio} Normal 1.1-2.5 [facility]; [facility] Work Phone: ALP [Catalytic activity/Vol] 70 U/L Normal 25-165 [facility]; [facility] Work Phone: ALT [Catalytic activity/Vol] 16 U/L Normal 0-40 [facility]; [facility] Work Phone: AST [Catalytic activity/Vol] 19 U/L Normal 0-40 [facility]; [facility] Work Phone: Bilirubin [Mass/Vol] 0.8 mg/dL Normal 0.0-1.2 [facility] rehensive Internal Medicine; [facility] Work Phone: Calcium [Mass/Vol] 9.2 mg/dL Normal 8.6-10.2 [facility] Internal Medicine; [facility] Work Phone: Chloride [Moles/Vol] 106 mmol/L Normal 97-108 [facility] rehensive Internal Medicine; [facility] Work Phone: CO2 [Moles/Vol] 24 mmol/L Normal 20-32 [facility] Internal Medicine; [facility] Work Phone: Creatinine [Mass/Vol] 0.70 mg/dL Normal 0.57-1.00 [facility] prehensive Internal Medicine; [facility] Work Phone: GFR/1.73 sq M.predicted among blacks CKD-EPI (S/P/Bld) [Vol rate/Area] 102 mL/min/1.73 Normal [facility]; [facility] Work Phone: GFR/1.73 sq M.predicted among non-blacks CKD-EPI (S/P/Bld) [Vol rate/Area] 89 mL/min/1.73 Normal [facility]; [facility] Work Phone: Globulin (S) [Mass/Vol] 2.7 g/dL Normal 1.5-4.5 [facility]; [facility] Work Phone: Glucose [Mass/Vol] 99 mg/dL Normal 65-99 [facility] Internal [facility]; [facility] Work Phone: Potassium [Moles/Vol] 4.4 mmol/L Normal 3.5-5.2 [facility] prehensive Internal Medicine; [facility] Work Phone: Protein [Mass/Vol] 6.6 g/dL Normal 6.0-8.5 [facility]; [facility] Work Phone: Sodium [Moles/Vol] 143 mmol/L Normal 134-144 [facility]; [facility] Work Phone: Urea nitrogen [Mass/Vol] 17 mg/dL Normal 8-27 [facility]; [facility] Work Phone: Urea nitrogen/Creatinine [Mass ratio] 24 mg/mg Normal 11-26 [facility]; [facility] Work Phone: MICROALBUMINOrdered By: Syst em Intensive Care Unit Nurse on 11-01-2011 Albumin DL <= 20 mg/L (U) [Mass/Vol] 7.3 ug/mL Normal 0.0-17.0 [facility]; [facility] Work Phone: Albumin/Creatinine (U) [Mass ratio] 5.8 {mg/g_creat} Normal 0.0-30.0 [facility]; [facility] Work Phone: Creatinine (U) [Mass/Vol] 126.6 mg/dL Normal 15.0-278.0 [facility]; [facility] Work Phone: TSH ([id number])Ordered By: Joy m Intensive Care Unit Nurse on 11-01-2011 TSH Qn 1.950 {uIU/mL} Normal 0.450-4.500 Comprehen sive Internal Medicine; [facility] Work Phone: Vitamin D Hydroxy ([phone])Ord ered By: Hat Sprayer on 11-01-2011 25-hydroxyvitamin D [Mass/Vol] 108.0 ng/mL Abnormal 30.0-100.0 [facility]; [facility] Work Phone: URINE IGOR CULTURE-IDENTIFICA TN ([id number])Ordered By: Hat Sprayer on 10-29-2011 Bacteria identified Cx Nom (U) Final report Normal [facility]; [facility] Work Phone: Bacteria identified Cx Nom (U) ECV Normal [facility]; [facility] Work Phone: Urinalysis, Office ([phone])Or dered By: Brenda Moyer on 10-29-2011 Bilirubin [...] Medicine; [facility] Work Phone: CALCIFEDIOL ([id number])Ordered B y: Hat Sprayer on 10-26-2011 25-hydroxyvitamin D [Mass/Vol] 103.0 ng/mL Abnormal 30.0-100.0 [facility]; [facility] Work Phone: URINE IGOR CULTURE-SAMANTHA COL C OUNT ([phone])Ordered By: Hat Sprayer on 10-13-2011 Bacteria identified Cx Nom (U) Final report Normal [facility]; [facility] Work Phone: Bacteria identified Cx Nom (U) Escherichia coli Normal [facility]; [facility] Work Phone: Other Antibiotic [Susc] MIHEAD Normal [facility]; [facility] Work Phone: Urinalysis, Office ([phone])Or dered By: Brenda Moyer on 10-12-2011 Bilirubin [...] Internal Medicine Work Phone: Thin prep Pap ([id number])Ordered By: Hat Sprayer on 07-06-2011 Microscopic observation Other stain Nom (Unsp spec) . Normal Comprehens tonya [facility]; [facility] Work Phone: Pathology report final diagnosis Narrative SPRCS Normal [facility]; [facility] Work Phone: Thin prep Pap ([phone]) PAPSMR Normal Com prehensive Internal Medicine; [facility] Work Phone: HgA1C , Office ([phone])Ordere d By: Catherine Magana on 06-15-2011 HbA1c (Bld) [Mass fraction] 6.1 % Normal 4.6 - 7.1 [facility]; [facility] Work Phone: LIPID PANEL ([phone])Ordered B y: Hat Sprayer on 06-08-2011 Cholesterol [Mass/Vol] 175 mg/dL Normal [...] Medicine Work Phone: METABOLIC PANEL, COMPREHENSI VE ([phone])Ordered By: Hat Sprayer on 06-08-2011 Albumin [Mass/Vol] 3.9 g/dL Normal 3.6-4.8 Compre hensive [facility]; [facility] Work Phone: Albumin/Globulin [Mass ratio] 1.9 {ratio} Normal 1.1-2.5 [facility]; [facility] Work Phone: ALP [Catalytic activity/Vol] 72 U/L Normal 25-165 [facility]; [facility] Work Phone: ALT [Catalytic activity/Vol] 18 U/L Normal 0-40 [facility]; [facility] Work Phone: AST [Catalytic activity/Vol] 21 U/L Normal 0-40 [facility]; [facility] Work Phone: Bilirubin [Mass/Vol] 0.6 mg/dL Normal 0.0-1.2 [facility] Work Phone: Calcium [Mass/Vol] 9.1 mg/dL Normal 8.6-10.2 [facility]; [facility] Work Phone: Chloride [Moles/Vol] 105 mmol/L Normal 97-108 [facility] rehensive Internal Medicine; [facility] Work Phone: CO2 [Moles/Vol] 25 mmol/L Normal 20-32 [facility] Internal Medicine; [facility] Work Phone: Creatinine [Mass/Vol] 0.72 mg/dL Normal 0.57-1.00 [facility] Work Phone: GFR/1.73 sq M.predicted among blacks MDRD (S/P/Bld) [Vol rate/Area] 99 mL/min/{1.73_m2} Normal [facility]; [facility] Work Phone: GFR/1.73 sq M.predicted among non-blacks CKD-EPI (S/P/Bld) [Vol rate/Area] 86 mL/min/1.73 Normal [facility]; [facility] Work Phone: Globulin (S) [Mass/Vol] 2.1 g/dL Normal 1.5-4.5 [facility]; [facility] Work Phone: Glucose [Mass/Vol] 102 mg/dL Abnormal 65-99 [facility]; [facility] Work Phone: Potassium [Moles/Vol] 4.7 mmol/L Normal 3.5-5.2 [facility] prehensive Internal Medicine; [facility] Work Phone: Protein [Mass/Vol] 6.0 g/dL Normal 6.0-8.5 [facility]; [facility] Work Phone: Sodium [Moles/Vol] 141 mmol/L Normal 134-144 [facility]; [facility] Work Phone: Urea nitrogen [Mass/Vol] 16 mg/dL Normal 8-27 [facility]; [facility] Work Phone: Urea nitrogen/Creatinine [Mass ratio] 22 mg/mg Normal 11-26 [facility]; [facility] Work Phone: Urinalysis, Office ([phone])Or dered By: Phuc Riding on 03-03-2011 Bilirubin Ql (U) Negative Normal Comprehe nsive Internal Medicine; [facility] Work Phone: Glucose Test strip (U) [Mass/Vol] Negative Normal [facility]; [facility] [...] Phone: URINE IGOR CULTURE-SAMANTHA COL C OUNT ([phone])Ordered By: Hat Sprayer on 02-16-2011 Bacteria identified Cx Nom (U) Final report Normal [facility]; [facility] Work Phone: Bacteria identified Cx Nom (U) ECV Normal [facility]; [facility] Work Phone: Urinalysis, Office ([phone])Or dered By: Gail Villanueva on 02-16-2011 Bilirubin [...] Blood Glucose , Office ([phone])Ordered By: Irina Waddell on 12-14-2010 Glucose Glucometer (BldC) [Moles/Vol] 97 1 Normal [facility]; [facility] Work Phone: HgA1C , Office ([phone])Ordere d By: Irina Waddell on 12-14-2010 HbA1c (Bld) [Mass fraction] 5.9 % Normal 4.6 - 7.1 [facility]; [facility] Work Phone: LIPID PANEL ([id number])Ordered B y: Hat Sprayer on 12-07-2010 Cholesterol [Mass/Vol] 219 mg/dL Abnormal [...] Medicine Work Phone: MICROALBUMINOrdered By: Syst em Intensive Care Unit Nurse on 12-07-2010 Albumin DL <= 20 mg/L (U) [Mass/Vol] 6.4 ug/mL Normal 0.0-17.0 [facility]; [facility] Work Phone: Albumin/Creatinine (U) [Mass ratio] 4.7 {mg/g_creat} Normal 0.0-30.0 [facility]; [facility] Work Phone: Creatinine (U) [Mass/Vol] 137.1 mg/dL Normal 15.0-278.0 [facility]; [facility] Work Phone: Vitamin D Hydroxy ([phone])Ord ered By: Hat Sprayer on 12-07-2010 1,25-dihydroxyvitamin D3 [Mass/Vol] 56.7 ng/mL Normal 32.0-100.0 [facility]; [facility] Work Phone: HgA1C , Office ([phone])Ordere d By: Catherine Magana on 08-03-2010 HbA1c (Bld) [Mass fraction] 6.1 % Normal 4.6 - 7.1 [facility]; [facility] Work Phone: CBC WITH MANUAL DIFF ([id number]) Ordered By: Catherine Magana on 01-30-2008 Basophils [...] Hemoglobin (Bld) [Mass/Vol] 14.4 g/dL Normal 11.5-15.0 [facility]; [facility] Work Phone: Lymphocytes (Bld) [#/Vol] 1.8 10*3/uL Normal 0.7-4.5 [facility]; [facility] Work Phone: Lymphocytes/100 WBC (Bld) 30 % Normal 14-46 [facility]; [facility] Work Phone: MCH (RBC) [Entitic mass] 30.0 pg Normal 27.0-34.0 [facility]; [facility] Work Phone: MCHC (RBC) [Mass/Vol] 34.0 g/dL Normal 32.0-36.0 [facility] prehensive Internal Medicine; [facility] Work Phone: MCV (RBC) [Entitic vol] 88 fL Normal 80-98 [facility]; [facility] Work Phone: Monocytes (Bld) [#/Vol] 0.4 10*3/uL Normal 0.1-1.0 [facility]; [facility] Work Phone: Monocytes/100 WBC (Bld) 7 % Normal 4-13 [facility]; [facility] Work Phone: Neutrophils (Bld) [#/Vol] 3.7 10*3/uL Normal 1.8-7.8 [facility]; [facility] Work Phone: Neutrophils/100 WBC (Bld) 61 % Normal 40-74 [facility]; [facility] Work Phone: Platelets (Bld) [#/Vol] 286 10*3/uL Normal 140-415 [facility]; [facility] Work Phone: RBC (Bld) [#/Vol] 4.79 10*6/uL Normal 3.80-5.10 [facility] ehensive Internal Medicine; [facility] Work Phone: WBC (Bld) [#/Vol] 6.0 10*3/uL Normal 4.0-10.5 Compre hensive Internal Medicine; [facility] Work Phone: LIPID PANEL ([id number])Ordered B y: Catherine Fast on 01-30-2008 Cholesterol [Mass/Vol] 219 mg/dL Abnormal [...] HDL [Mass ratio] 2.1 {ratio_units} Normal 0.0-3.2 [facility]; [facility] Work Phone: Cholesterol in VLDL [Mass/Vol] 31 mg/dL Normal 5-40 [facility]; [facility] Work Phone: Triglyceride [Mass/Vol] 155 mg/dL Abnormal 0-149 [facility]; [facility] Work Phone: METABOLIC PANEL, COMPREHENSI VE ([phone])Ordered By: Catherine Magana on 01-30-2008 Albumin [Mass/Vol] 4.2 g/dL Normal 3.6-4.8 [facility]; [facility] Work Phone: Albumin/Globulin [Mass ratio] 1.6 {ratio} Normal 1.1-2.5 [facility]; [facility] Work Phone: ALP [Catalytic activity/Vol] 86 U/L Normal 25-165 [facility]; [facility] Work Phone: ALT [Catalytic activity/Vol] 17 U/L Normal 0-40 [facility]; [facility] Work Phone: AST [Catalytic activity/Vol] 18 U/L Normal 0-40 [facility]; [facility] Work Phone: Bilirubin [Mass/Vol] 1.0 mg/dL Normal 0.1-1.2 [facility]; [facility] Work Phone: Calcium [Mass/Vol] 9.6 mg/dL Normal 8.5-10.6 [facility]; [facility] Work Phone: Chloride [Moles/Vol] 104 mmol/L Normal 97-108 [facility]; [facility] Work Phone: CO2 [Moles/Vol] 26 mmol/L Normal 20-32 [facility] Internal Medicine; [facility] Work Phone: Creatinine [Mass/Vol] 0.80 mg/dL Normal 0.57-1.00 [facility] prehensive Internal Medicine; [facility] Work Phone: GFR/1.73 sq M.predicted among blacks MDRD (S/P/Bld) [Vol rate/Area] mL/min/{1.73_m2} Normal [facility]; [facility] Work Phone: GFR/1.73 sq M.predicted MDRD (S/P/Bld) [Vol rate/Area] mL/min/{1.73_m2} Normal [facility]; [facility] Work Phone: Globulin (S) [Mass/Vol] 2.7 g/dL Normal 1.5-4.5 [facility]; [facility] Work Phone: Glucose [Mass/Vol] 109 mg/dL Abnormal 65-99 [facility]; [facility] Work Phone: Potassium [Moles/Vol] 4.4 mmol/L Normal 3.5-5.2 [facility] prehensive Internal Medicine; [facility] Work Phone: Protein [Mass/Vol] 6.9 g/dL Normal 6.0-8.5 [facility]; [facility] Work Phone: Sodium [Moles/Vol] 142 mmol/L Normal 135-145 [facility]; [facility] Work Phone: Urea nitrogen [Mass/Vol] 12 mg/dL Normal 5-26 [facility]; [facility] Work Phone: Urea nitrogen/Creatinine [Mass ratio] 15 mg/mg Normal 8-27 [facility]; [facility] Work Phone: MICROALBUMINOrdered By: Rolando a Fast on 01-30-2008 Albumin DL <= 20 mg/L (U) [Mass/Vol] 28.1 ug/mL Abnormal 0.0-17.0 [facility]; [facility] Work Phone: TSH ([id number])Ordered By: Catherine Fast on 01-30-2008 TSH Qn 1.780 {uIU/mL} Normal 0.450-4.500 [facility]; [facility] Work Phone: Vital Signs Date Time Vital Sign Value Performing Clinician Facility 06-04-2024 15:30-0400 Body temperature 98.3 [degF] Dr. Catherine Magana DO Work Phone: [facility] 06-04-2024 15:30-0400 Diastolic blood pressure 70 mm[Hg] Dr. Catherine Magana DO Work Phone: [facility] 06-04-2024 15:30-0400 Heart rate 65 /min Dr. Catherine Magana DO Work Phone: [facility] 06-04-2024 15:30-0400 Respiratory rate 16 /min Dr. Catherine Magana DO Work Phone: [facility] 06-04-2024 15:30-0400 SaO2% (BldA) [Mass fraction] 96 % Dr. Catherine Magana DO Work Phone: [facility] 06-04-2024 15:30-0400 Systolic blood pressure 124 mm[Hg] Dr. Catherine Magana DO Work Phone: [facility] 06-04-2024 13:00-0400 Inhaled oxygen flow rate 2 L/min Dr. Catherine Magana DO Work Phone: [facility] 06-04-2024 09:29-0400 Body height 152.[address] Catherine Magana DO Work Phone: [facility] 06-04-2024 09:29-0400 Body mass index (BMI) [Ratio] 33.7 kg/m2 Dr. Catherine Magana DO Work Phone: [facility] 06-04-2024 09:29-0400 Body weight 78.[address] Catherine Magana DO Work Phone: [facility] 05-21-2024 08:50-0500 Body mass index (BMI) [Ratio] 33.7 kg/m2 Dr. Catherine Magana DO Work Phone: [facility] 05-21-2024 08:50-0500 Body temperature 97.6 [degF] Dr. Catherine Magana DO Work Phone: [facility] 05-21-2024 08:50-0500 Body weight 78.[address] Catherine Magana DO Work Phone: [facility] 05-21-2024 08:50-0500 Diastolic blood pressure 69 mm[Hg] Dr. Catherine Magana DO Work Phone: [facility] 05-21-2024 08:50-0500 Heart rate 90 /min Dr. Catherine Magana DO Work Phone: [facility] 05-21-2024 08:50-0500 Respiratory rate 18 /min Dr. Catherine Magana DO Work Phone: [facility] 05-21-2024 08:50-0500 SaO2% (BldA) [Mass fraction] 98 % Dr. Catherine Magana DO Work Phone: [facility] 05-21-2024 08:50-0500 Systolic blood pressure 144 mm[Hg] Dr. Catherine Magana DO Work Phone: [facility] 03-05-2024 13:58-0500 Body mass index (BMI) [Ratio] 33.8 kg/m2 Dr. Catherine Magana DO Work Phone: [facility] 03-05-2024 13:58-0500 Body temperature 97.6 [degF] Dr. Catherine Magana DO Work Phone: [facility] 03-05-2024 13:58-0500 Body weight 78.[address] Catherine Magana DO Work Phone: [facility] 03-05-2024 13:58-0500 Diastolic blood pressure 73 mm[Hg] Dr. Catherine Magana DO Work Phone: [facility] 03-05-2024 13:58-0500 Heart rate 82 /min Dr. Catherine Magana DO Work Phone: [facility] 03-05-2024 13:58-0500 Respiratory rate 18 /min Dr. Catherine Magana DO Work Phone: [facility] 03-05-2024 13:58-0500 SaO2% (BldA) [Mass fraction] 96 % Dr. Catherine Magana DO Work Phone: [facility] 03-05-2024 13:58-0500 Systolic blood pressure 160 mm[Hg] Dr. Catherine Magana DO Work Phone: [facility] 03-31-2023 15:10-0500 Body height 154.94 cm [facility] 10-22-2022 07:15-0400 Body temperature 96.91 [degF] Farzana Larsen [employer] TEACHER.HEALTH INFORMATION ASSISTANT Work Phone: [facility] 10-22-2022 07:15-0400 Body weight 79.38 kg Farzana Larsen [employer] TEACHER.HEALTH INFORMATION ASSISTANT Work Phone: [facility] 10-22-2022 07:15-0400 Diastolic blood pressure 70 mm[Hg] Farzana Larsen [employer] TEACHER.HEALTH INFORMATION ASSISTANT Work Phone: [facility] 10-22-2022 07:15-0400 Heart rate 78 /min Farzana Larsen [employer] TEACHER.HEALTH INFORMATION ASSISTANT Work Phone: [facility] 10-22-2022 07:15-0400 Respiratory rate 16 /min Farzana Larsen [employer] TEACHER.HEALTH INFORMATION ASSISTANT Work Phone: [facility] 10-22-2022 07:15-0400 SaO2% (BldA) [Mass fraction] 96 % Farzana Larsen [employer] TEACHER.HEALTH INFORMATION ASSISTANT Work Phone: [facility] 10-22-2022 07:15-0400 Systolic blood pressure 118 mm[Hg] Farzana Larsen [employer] TEACHER.HEALTH INFORMATION ASSISTANT Work Phone: [facility] 09-09-2022 06:27-0400 Body height 154.94 cm [facility] 09-09-2022 06:27-0400 Body mass index (BMI) [Ratio] 33.7 kg/m2 [facility] 09-09-2022 06:27-0400 Body temperature 97.9 [degF] [facility] 09-09-2022 06:27-0400 Body weight 81 kg [facility] 09-09-2022 06:27-0400 Diastolic blood pressure 96 mm[Hg] [facility] 09-09-2022 06:27-0400 Heart rate 68 /min [facility] 09-09-2022 06:27-0400 Respiratory rate 18 /min [facility] 09-09-2022 06:27-0400 SaO2% (BldA) [Mass fraction] 96 % [facility] 09-09-2022 06:27-0400 Systolic blood pressure 149 mm[Hg] [facility] 06-18-2022 12:17-0400 Body weight 82.1 kg Virgilio Rojas MD Work Phone: [facility] 06-18-2022 12:17-0400 Diastolic blood pressure 74 mm[Hg] Virgilio Rojas MD Work Phone: [facility] 06-18-2022 12:17-0400 Heart rate 80 /min Virgilio Rojas MD Work Phone: [facility] 06-18-2022 12:17-0400 Respiratory rate 14 /min Virgilio Rojas MD Work Phone: [facility] 06-18-2022 12:17-0400 Systolic blood pressure 122 mm[Hg] Virgilio Rojas MD Work Phone: [facility] 04-19-2022 13:18-0500 Body height 153.7 cm Virgilio Rojas MD Work Phone: [facility] 04-19-2022 13:18-0500 Body weight 81.65 kg Virgilio Rojas MD Work Phone: [facility] 04-19-2022 13:18-0500 Diastolic blood pressure 80 mm[Hg] Virgilio Rojas MD Work Phone: [facility] 04-19-2022 13:18-0500 Heart rate 72 /min Virgilio Rojas MD Work Phone: [facility] 04-19-2022 13:18-0500 Respiratory rate 16 /min Virgilio Rojas MD Work Phone: [facility] 04-19-2022 13:18-0500 Systolic blood pressure 120 mm[Hg] Virgilio Rojas MD Work Phone: [facility] 02-25-2022 16:41-0500 Body temperature 97.7 [degF] [facility] Work Phone: 02-25-2022 16:41-0500 Diastolic blood pressure 67 mm[Hg] [facility] Work Phone: 02-25-2022 16:41-0500 Heart rate 83 /min [facility] Work Phone: 02-25-2022 16:41-0500 Respiratory rate 18 /min [facility] Work Phone: 02-25-2022 16:41-0500 SaO2% (BldA) [Mass fraction] 98 % [facility] Work Phone: 02-25-2022 16:41-0500 Systolic blood pressure 130 mm[Hg] [facility] Work Phone: 02-25-2022 13:19-0500 Body height 154.94 cm [facility] Work Phone: 02-25-2022 13:19-0500 Body mass index (BMI) [Ratio] 33.8 kg/m2 [facility] Work Phone: 02-25-2022 13:19-0500 Body weight 81.19 kg [facility] Work Phone: 09-16-2021 15:04-0400 Body weight 79.38 kg Virgilio Rojas MD Work Phone: [facility] 09-16-2021 15:04-0400 Diastolic blood pressure 72 mm[Hg] Virgilio Rojas MD Work Phone: [facility] 09-16-2021 15:04-0400 Heart rate 76 /min Virgilio Rojas MD Work Phone: [facility] 09-16-2021 15:04-0400 Respiratory rate 16 /min Virgilio Rojas MD Work Phone: [facility] 09-16-2021 15:04-0400 Systolic blood pressure 120 mm[Hg] Virgilio Rojas MD Work Phone: [facility] 08-27-2021 08:03-0400 Body temperature 96.69 [degF] Marilyn [employer] TEACHER.HEALTH INFORMATION ASSISTANT Work Phone: [facility] 08-27-2021 08:03-0400 Body weight 80.56 kg Marilyn [employer]ler[employer] TEACHER.HEALTH INFORMATION ASSISTANT Work Phone: [facility] 08-27-2021 08:03-0400 Diastolic blood pressure 64 mm[Hg] Marilyn [employer]ler[employer] TEACHER.HEALTH INFORMATION ASSISTANT Work Phone: [facility] 08-27-2021 08:03-0400 Heart rate 56 /min Marilyn [employer]ler[employer] TEACHER.HEALTH INFORMATION ASSISTANT Work Phone: [facility] 08-27-2021 08:03-0400 Respiratory rate 21 /min Marilyn [employer]ler[employer] TEACHER.HEALTH INFORMATION ASSISTANT Work Phone: [facility] 08-27-2021 08:03-0400 SaO2% (BldA) [Mass fraction] 97 % Marilyn [employer]ler[employer] TEACHER.HEALTH INFORMATION ASSISTANT Work Phone: [facility] 08-27-2021 08:03-0400 Systolic blood pressure 110 mm[Hg] Marilyn [employer]ler[employer] TEACHER.HEALTH INFORMATION ASSISTANT Work Phone: [facility] 06-22-2021 07:36-0400 Body temperature 97.7 [degF] Maria Dolores LOPEZ-C Work Phone: [facility] 06-22-2021 07:36-0400 Body weight 83.46 kg Maria Dolores LOPEZ-C Work Phone: [facility] 06-22-2021 07:36-0400 Diastolic blood pressure 60 mm[Hg] Maria Dolores LOPEZ-C Work Phone: [facility] 06-22-2021 07:36-0400 Heart rate 78 /min Maria Dolores LOPEZ-C Work Phone: [facility] 06-22-2021 07:36-0400 Respiratory rate 16 /min Maria Dolores Garcia PA-C Work Phone: [facility] 06-22-2021 07:36-0400 Systolic blood pressure 110 mm[Hg] Maria Dolores Garcia PA-C Work Phone: [facility] 06-14-2021 19:43-0400 Diastolic blood pressure 88 mm[Hg] [facility] Work Phone: 06-14-2021 19:43-0400 Heart rate 102 /min [facility] Work Phone: 06-14-2021 19:43-0400 Respiratory rate 16 /min [facility] Work Phone: 06-14-2021 19:43-0400 SaO2% (BldA) [Mass fraction] 98 % [facility] Work Phone: 06-14-2021 19:43-0400 Systolic blood pressure 118 mm[Hg] [facility] Work Phone: 06-14-2021 14:44-0400 Body height 152.4 cm [facility] Work Phone: 06-14-2021 14:44-0400 Body mass index (BMI) [Ratio] 37.3 kg/m2 [facility] Work Phone: 06-14-2021 14:44-0400 Body temperature 97.6 [degF] [facility] Work Phone: 06-14-2021 14:44-0400 Body weight 86.7 kg [facility] Work Phone: 02-09-2017 14:43-0500 BMI (Body Mass Index) 30.74 kg/m2 Roberto BLAS [facility] Work Phone: 02-09-2017 14:43-0500 Body Temperature 98.1 [degF] Roberto BLASH [facility] Work Phone: 02-09-2017 14:43-0500 BP Diastolic 76 mm[Hg] Roberto LOPEZ [facility] Work Phone: 02-09-2017 14:43-0500 BP Systolic 124 mm[Hg] Roberto LOPEZ [facility] Work Phone: 02-09-2017 14:43-0500 Height 156.21 cm Roberto LOPEZ [facility] Work Phone: 02-09-2017 14:43-0500 Pulse (Heart Rate) 60 /min Roberto Danielle JESSICA [facility] Work Phone: 02-09-2017 14:43-0500 Respiratory Rate 15 /min Roberto LOPEZ [facility] Work Phone: 02-09-2017 14:43-0500 Weight 75.03 kg Roberto LOPEZ [facility] Work Phone: 08-04-2016 10:48-0400 BMI (Body Mass Index) 29.74 kg/m2 Rekha Vargas [facility] Work Phone: 08-04-2016 10:48-0400 Body Temperature 97.1 [degF] Rekha Vargas [facility] Work Phone: 08-04-2016 10:48-0400 BP Diastolic 68 mm[Hg] Rekha Vargas [facility] [place] Work Phone: 08-04-2016 10:48-0400 BP Systolic 103 mm[Hg] Rekha Vargas [facility] [place] Work Phone: 08-04-2016 10:48-0400 Height 156.21 cm Rekha Vargas [facility] [place] Work Phone: 08-04-2016 10:48-0400 Pulse (Heart Rate) 59 /min Rekha Vargas [facility] Work Phone: 08-04-2016 10:48-0400 Pulse Oximetry 98 % Rekha Vargas [facility] [place] Work Phone: 08-04-2016 10:48-0400 Respiratory Rate 18 /min Rekha Vargas [facility] Work Phone: 08-04-2016 10:48-0400 Weight 72.58 kg Rekha Vargas [facility] [place] Work Phone: 04-13-2016 11:08-0500 Body height 152.4 [...] 12-25-2015 10:40-0400 Body height 152.4 cm Gail L Long RN [facility]; [facility] [...] mass index (BMI) [Ratio] 31.44 kg/m2 Gail [facility]; [facility] [...] 12-10-2015 09:17-0400 Body height 152.4 cm Laurence Najera LPN [facility] Work Phone: 12-10-2015 09:17-0400 Body mass index (BMI) [Ratio] 31.47 kg/m2 Laurence Najera LPN [facility] Work Phone: 12-10-2015 09:17-0400 Body surface area Derived from formula 1.7 m2 Laurence Najera LPN [facility]; [facility] Work Phone: 12-10-2015 09:17-0400 Body temperature 97.7 [degF] Laurence Najera LPN [facility]; [facility] Work Phone: 12-10-2015 09:170400 Body weight 73.09 kg Laurence Slarb CELL BIOLOGY SCIENTIST [facility]; [facility] Work Phone: 12-10-2015 09:17-0400 Diastolic blood pressure 78 mm[Hg] Laurence Slarb CELL BIOLOGY SCIENTIST [facility]; [facility] Work Phone: 12-10-2015 09:17-0400 Heart rate 56 /min Laurence Slarb CELL BIOLOGY SCIENTIST [facility] Work Phone: 12-10-2015 09:17-0400 Respiratory rate 16 /min Laurence Slarb CELL BIOLOGY SCIENTIST [facility] Work Phone: 12-10-2015 09:17-0400 SaO2% (BldA) [Mass fraction] 97 % Laurence Slarb CELL BIOLOGY SCIENTIST [facility]; [facility] Work Phone: 12-10-2015 09:17-0400 Systolic blood pressure 118 mm[Hg] Laurence Slarb CELL BIOLOGY SCIENTIST [facility] Work Phone: 11-19-2015 09:140400 Body height 152.4 cm José Miguel Bryson MD Work Phone: [facility] Work Phone: 11-19-2015 09:140400 Body mass index (BMI) [Ratio] 31.47 kg/m2 José Miguel Bryson MD Work Phone: [facility] Work Phone: 11-19-2015 09:140400 Body surface area Derived from formula 1.7 [...] 11-12-2015 10:30-0400 Body height 152.4 cm Laurence Najera LPN [facility]; [facility] Work Phone: 11-12-2015 10:30-0400 Body mass index (BMI) [Ratio] 31.47 kg/m2 Laurence Reinaldo DIETZ [facility]; [facility] Work Phone: 11-12-2015 10:30-0400 Body surface area Derived from formula 1.7 m2 Laurence Reinaldo DIETZ [facility]; [facility] Work Phone: 11-12-2015 10:30-0400 Body temperature 97.4 [degF] Alurence Reinaldo DIETZ [facility]; [facility] Work Phone: 11-12-2015 10:30-0400 Body weight 73.09 kg Laurence Slarb CELL BIOLOGY SCIENTIST [facility]; [facility] Work Phone: 11-12-2015 10:30-0400 Diastolic blood pressure 74 mm[Hg] Laurence Moctezumayayo CELL BIOLOGY SCIENTIST [facility]; [facility] Work Phone: 11-12-2015 10:30-0400 Heart rate 51 /min Laurence Reinaldo CELL BIOLOGY SCIENTIST [facility]; [facility] Work Phone: 11-12-2015 10:30-0400 Respiratory rate 17 /min Laurence Jose Eliasrb CELL BIOLOGY SCIENTIST [facility]; [facility] Work Phone: 11-12-2015 10:30-0400 SaO2% (BldA) [Mass fraction] 97 % Laurence Jose Eliasrb CELL BIOLOGY SCIENTIST [facility]; [facility] Work Phone: 11-12-2015 10:30-0400 Systolic blood pressure 106 mm[Hg] Laurence Reinaldo ESPINOZAN [facility]; [facility] Work Phone: 08-07-2015 09:46-0400 Body Temperature 96.08 [degF] Rekha Vargas [facility] [place] Work Phone: 08-07-2015 09:46-0400 Weight 72.55 kg Rekha Sam [facility] [place] Work Phone: 06-11-2015 10:19-0400 Body height 152.4 [...] 06-11-2015 10:19-0400 Body weight 72.12 kg Irina Bairon [facility]; [facility] Work Phone: 06-11-2015 10:19-0400 Diastolic blood pressure 68 mm[Hg] Irina Waddell [facility]; [facility] Work Phone: 06-11-2015 10:0400 Heart rate 57 /min Irina Waddell [facility]; [facility] Work Phone: 06-11-2015 10:0400 Respiratory rate 15 /min Irina Bairon [facility]; [facility] Work Phone: 06-11-2015 10:0400 SaO2% (BldA) [Mass fraction] 98 % Irina Waddell [facility]; [facility] Work Phone: 06-11-2015 10:0400 Systolic blood pressure 98 mm[Hg] Irina Waddell [facility]; [facility] Work Phone: 06-03-2015 09:43-0500 Body height 152.4 cm Laurence Reinaldo DIETZ [facility]; [facility] Work Phone: 06-03-2015 09:43-0500 Body mass index (BMI) [Ratio] 32.03 kg/m2 Laurence Slarb CELL BIOLOGY SCIENTIST [facility]; [facility] Work Phone: 06-03-2015 09:43-0500 Body surface area Derived from formula 1.72 m2 Laurence Slarb CELL BIOLOGY SCIENTIST [facility]; [facility] Work Phone: 06-03-2015 09:43-0500 Body temperature 97.2 [degF] Laurence Slarb CELL BIOLOGY SCIENTIST [facility]; [facility] Work Phone: 06-03-2015 09:43-0500 Body weight 74.39 kg Laurence Slarb CELL BIOLOGY SCIENTIST [facility] Work Phone: 06-03-2015 09:43-0500 Diastolic blood pressure 72 mm[Hg] Laurence Slarb CELL BIOLOGY SCIENTIST [facility]; [facility] Work Phone: 06-03-2015 09:43-0500 Heart rate 62 /min Laurence Slarb CELL BIOLOGY SCIENTIST [facility] Work Phone: 06-03-2015 09:43-0500 Respiratory rate 16 /min Laurence Slarb CELL BIOLOGY SCIENTIST [facility]; [facility] Work Phone: 06-03-2015 09:43-0500 SaO2% (BldA) [Mass fraction] 95 % Laurence Slarb CELL BIOLOGY SCIENTIST [facility]; [facility] Work Phone: 06-03-2015 09:43-0500 Systolic blood pressure 108 mm[Hg] Laurence Slarb CELL BIOLOGY SCIENTIST [facility]; [facility] Work Phone: 12-11-2014 09:36-0400 Body height 152.4 cm Irina Waddell [facility]; [facility] Work Phone: 12-11-2014 09:36-0400 Body mass index (BMI) [Ratio] 32.03 kg/m2 Irina Waddell [facility]; [facility] Work Phone: 12-11-2014 09:36-0400 Body surface area Derived from formula 1.72 m2 Irina Waddell [facility]; [facility] Work Phone: 12-11-2014 09:36-0400 Body temperature 98.2 [degF] Irina Waddell [facility]; [facility] Work Phone: 12-11-2014 09:36-0400 Body weight 74.39 kg Irina Zavala [facility]; [facility] Work Phone: 12-11-2014 09:36-0400 Diastolic blood pressure 74 mm[Hg] Irina Zavala [facility]; [facility] Work Phone: 12-11-2014 09:36-0400 Heart rate 56 /min Irina Zavala [facility]; [facility] Work Phone: 12-11-2014 09:36-0400 Respiratory rate 16 /min Irina Barillasner [facility]; [facility] Work Phone: 12-11-2014 09:36-0400 SaO2% (BldA) [Mass fraction] 96 % Irina Bairon [facility]; [facility] Work Phone: 12-11-2014 09:36-0400 Systolic blood pressure 116 mm[Hg] Irina Bairon [facility]; [facility] Work Phone: 10-14-2014 15:35-0400 Body height 152.4 cm Catherine A Fast DO Work Phone: [facility] [...] /min Catherine A Fast DO Work Phone: [facility] Work Phone: 10-14-2014 15:35-0400 SaO2% (BldA) [Mass fraction] 97 % Catherine A Fast DO Work Phone: [facility]; [facility] Work Phone: 10-14-2014 15:35-0400 Systolic blood pressure 100 mm[Hg] Catherine A Fast DO Work Phone: [facility] Work Phone: 09-11-2014 09:38-0400 Body height 152.4 cm Irina Zavala [facility]; [facility] Work Phone: 09-11-2014 09:38-0400 Body mass index (BMI) [Ratio] 36.33 kg/m2 Irina Zavala [facility]; [facility] Work Phone: 09-11-2014 09:38-0400 Body surface area Derived from formula 1.81 m2 Irina Waddell [facility]; [facility] Work Phone: 09-11-2014 09:38-0400 Body temperature 98.7 [degF] Irina Waddell [facility]; [facility] Work Phone: 09-11-2014 09:38-0400 Body weight 84.37 kg Irina Zavala [facility]; [facility] Work Phone: 09-11-2014 09:38-0400 Diastolic blood pressure 84 mm[Hg] Irina Zavala [facility]; [facility] Work Phone: 09-11-2014 09:38-0400 Heart rate 62 /min Irina Zavala [facility]; [facility] Work Phone: 09-11-2014 09:38-0400 Respiratory rate 16 /min Irina Zavala [facility]; [facility] Work Phone: 09-11-2014 09:38-0400 Systolic blood pressure 126 mm[Hg] Irina Zavala [facility]; [facility] Work Phone: 04-01-2014 15:42-0500 Body height 152.4 cm Irina Waddell [facility]; [facility] Work Phone: 04-01-2014 15:42-0500 Body mass index (BMI) [Ratio] 37.69 kg/m2 Irina Waddell [facility]; [facility] Work Phone: 04-01-2014 15:42-0500 Body surface area Derived from formula 1.84 m2 Irina Waddell [facility]; [facility] Work Phone: 04-01-2014 15:42-0500 Body temperature 97 [degF] Irina Waddell [facility]; [facility] Work Phone: 04-01-2014 15:42-0500 Body weight 87.54 kg Irina Waddell [facility]; [facility] Work Phone: 04-01-2014 15:42-0500 Diastolic blood pressure 76 mm[Hg] Irina Waddell [facility]; [facility] Work Phone: 04-01-2014 15:42-0500 Heart rate 68 /min Irina Waddell [facility]; [facility] Work Phone: 04-01-2014 15:42-0500 Respiratory rate 16 /min Irina Waddell [facility]; [facility] Work Phone: 04-01-2014 15:42-0500 Systolic blood pressure 100 mm[Hg] Irina Waddell [facility]; [facility] Work Phone: 03-06-2014 09:30-0500 Body height 152.4 cm Irina Waddell [facility]; [facility] Work Phone: 03-06-2014 09:30-0500 Body mass index (BMI) [Ratio] 37.69 kg/m2 Irina Waddell [facility]; [facility] Work Phone: 03-06-2014 09:30-0500 Body surface area Derived from formula 1.84 m2 Irina Waddell [facility]; [facility] [...] 09:30-0500 Systolic blood pressure 94 mm[Hg] Irina Waddell [facility]; [facility] Work Phone: 02-25-2014 08:57-0500 Body height 152.4 cm Irina Waddell [facility]; [facility] Work Phone: 02-25-2014 08:57-0500 Body mass index (BMI) [Ratio] 37.69 kg/m2 Irina Waddell [facility]; [facility] Work Phone: 02-25-2014 08:57-0500 Body surface area Derived from formula 1.84 m2 Irina Waddell [facility]; [facility] Work Phone: 02-25-2014 08:57-0500 Body temperature 97.4 [degF] Irina Waddell [facility]; [facility] Work Phone: 02-25-2014 08:57-0500 Body weight 87.54 kg Irina Osorioaura [facility]; [facility] Work Phone: 02-25-2014 08:57-0500 Diastolic blood pressure 70 mm[Hg] Irina Bairon [facility]; [facility] Work Phone: 02-25-2014 08:57-0500 Heart rate 76 /min Irina Bairon [facility]; [facility] Work Phone: 02-25-2014 08:57-0500 Respiratory rate 16 /min Irina Flaura [facility]; [facility] Work Phone: 02-25-2014 08:57-0500 Systolic blood pressure 122 mm[Hg] Irina Flaura [facility]; [facility] Work Phone: 09-21-2013 10:32-0400 Body height 152.4 cm [facility] Work Phone: 09-21-2013 10:32-0400 Body mass index (BMI) [Ratio] 37.3 kg/m2 [facility] Work Phone: 09-21-2013 10:32-0400 Body surface area Derived from formula 1.83 m2 [facility] Work Phone: 09-21-2013 10:32-0400 Body weight 86.64 kg [facility] Work Phone: 09-21-2013 10:32-0400 Diastolic blood pressure 82 mm[Hg] Tabitha [facility]; [facility] Work Phone: 09-21-2013 10:32-0400 Heart rate 64 /min Tabitha [facility]; [facility] Work Phone: 09-21-2013 10:32-0400 Respiratory rate 16 /min Tabitha [facility]; [facility] Work Phone: 09-21-2013 10:32-0400 SaO2% (BldA) [Mass fraction] 96 % Tabitha Bianchi [facility]; [facility] Work Phone: 09-21-2013 10:32-0400 Systolic blood pressure 115 mm[Hg] Tabitha Bianchi [facility]; [facility] Work Phone: 09-10-2013 11:18-0400 Body height 152.4 cm Tabitha Bianchi [facility]; [facility] Work Phone: 09-10-2013 11:18-0400 Body mass index (BMI) [Ratio] 37.5 kg/m2 Tabitha Bianchi [facility]; [facility] Work Phone: 09-10-2013 11:18-0400 Body surface area Derived from formula 1.83 m2 Tabitha Bianchi [facility]; [facility] Work Phone: 09-10-2013 11:18-0400 Body temperature 98.4 [degF] Tabitha Bianchi [facility]; [facility] Work Phone: 09-10-2013 11:18-0400 Body weight 87.09 kg Tabitha Bianchi [facility] Work Phone: 09-10-2013 11:18-0400 Diastolic blood pressure 72 mm[Hg] Tabitha Bianchi [facility] Work Phone: 09-10-2013 11:18-0400 Heart rate 56 /min Tabitha Bianchi [facility] Work Phone: 09-10-2013 11:18-0400 Respiratory rate 16 /min [facility] Work Phone: 09-10-2013 11:18-0400 SaO2% (BldA) [Mass fraction] 98 % [facility] Work Phone: 09-10-2013 11:18-0400 Systolic blood pressure 118 mm[Hg] Tabitha Bianchi LUIZA [facility] Work Phone: 09-05-2013 15:11-0400 Body height 152.4 cm Vickilucas Hinson [facility]; [facility] [...] [facility]; [facility] Work Phone: 09-05-2013 [id number]:110400 Body weight 87.09 kg Vickilucas Hinson [facility]; [facility] Work Phone: 09-05-2013 15:11-0400 Diastolic blood pressure 72 mm[Hg] Vickilucas Hinson [facility]; [facility] Work Phone: 09-05-2013 15:11-0400 Heart rate 56 /min V[facility]ilucas [facility]; [facility] Work Phone: 09-05-2013 15:11-0400 Respiratory rate 18 /min V[facility]ilucas [facility]inson [facility]; [facility] Work Phone: 09-05-2013 15:11-0400 SaO2% (BldA) [Mass fraction] 96 % Vicki Sravan [facility]; [facility] Work Phone: 09-05-2013 15:11-0400 Systolic blood pressure 124 mm[Hg] Vickilucas [facility]; [facility] [...] 07-18-2013 11:34-0400 Body height 152.4 cm Irina Waddell [facility]; [facility] Work Phone: 07-18-2013 11:34-0400 Body mass index (BMI) [Ratio] 37.5 kg/m2 Irina Waddlel [facility]; [facility] Work Phone: 07-18-2013 11:34-0400 Body surface area Derived from formula 1.83 m2 Irina Zavala [facility]; [facility] Work Phone: 07-18-2013 11:34-0400 Body temperature 97.8 [degF] Irina Waddell [facility]; [facility] Work Phone: 07-18-2013 11:34-0400 Body weight 87.09 kg Irina Waddell [facility]; [facility] Work Phone: 07-18-2013 11:34-0400 Diastolic blood pressure 64 mm[Hg] Irina Waddell [facility]; [facility] Work Phone: 07-18-2013 11:34-0400 Heart rate 52 /min Irina Waddell [facility]; [facility] Work Phone: 07-18-2013 11:34-0400 Respiratory rate 16 /min Irina Waddell [facility]; [facility] Work Phone: 07-18-2013 11:34-0400 Systolic blood pressure 100 mm[Hg] Irina Waddell [facility]; [facility] Work Phone: 07-04-2013 14:11-0400 Body height 152.4 cm Irina Waddell [facility]; [facility] Work Phone: 07-04-2013 14:11-0400 Body mass index (BMI) [Ratio] 37.69 kg/m2 Irina Waddell [facility]; [facility] Work Phone: 07-04-2013 14:11-0400 Body surface area Derived from formula 1.84 m2 Irina Waddell [facility]; [facility] Work Phone: 07-04-2013 14:11-0400 Body temperature 96.6 [degF] Irina Waddell [facility]; [facility] Work Phone: 07-04-2013 14:11-0400 Body weight 87.54 kg Irina Waddell [facility]; [facility] Work Phone: 07-04-2013 14:11-0400 Diastolic blood pressure 72 mm[Hg] Irina Zavala [facility]; [facility] Work Phone: 07-04-2013 14:11-0400 Heart rate 60 /min Irina Waddell [facility]; [facility] Work Phone: 07-04-2013 14:11-0400 Respiratory rate 18 /min Irian Waddell [facility]; [facility] Work Phone: 07-04-2013 14:11-0400 Systolic blood pressure 110 mm[Hg] Irina Waddell [facility]; [facility] Work Phone: 06-01-2013 12:18-0500 Body height 152.4 cm Irina Waddell [facility]; [facility] Work Phone: 06-01-2013 12:18-0500 Body mass index (BMI) [Ratio] 37.69 kg/m2 rIina Waddell [facility]; [facility] [...] 02-06-2013 10:44-0500 Body temperature 98 [degF] Irina Bairon [facility]; [facility] [...] Systolic blood pressure 124 mm[Hg] Irina Waddell [facility]; [facility] Work Phone: 01-01-2013 14:57-0400 Body height 152.4 cm Irina Waddell [facility]; [facility] Work Phone: 01-01-2013 14:57-0400 Body mass index (BMI) [Ratio] 37.69 kg/m2 Irina Waddell [facility]; [facility] Work Phone: 01-01-2013 14:57-0400 Body surface area Derived from formula 1.84 m2 Irina Waddell [facility]; [facility] Work Phone: 01-01-2013 14:57-0400 Body temperature 97.9 [degF] Irina Waddell [facility]; [facility] Work Phone: 01-01-2013 14:57-0400 Body weight 87.54 kg Irina Waddell [facility]; [facility] Work Phone: 01-01-2013 14:57-0400 Diastolic blood pressure 74 mm[Hg] rIina Waddell [facility]; [facility] Work Phone: 01-01-2013 14:57-0400 Heart rate 60 /min Irina Zavala [facility]; [facility] Work Phone: 01-01-2013 14:57-0400 Respiratory rate 18 /min Irina Waddell [facility]; [facility] Work Phone: 01-01-2013 14:57-0400 Systolic blood pressure 118 mm[Hg] Irina Waddell [facility]; [facility] Work Phone: 07-12-2012 09:46-0400 Body height 152.4 cm Irina Waddell [facility]; [facility] Work Phone: 07-12-2012 09:46-0400 Body mass index (BMI) [Ratio] 36.72 kg/m2 Irina Waddell [facility]; [facility] Work Phone: 07-12-2012 09:46-0400 Body surface area Derived from formula 1.82 m2 Irina Waddell [facility]; [facility] Work Phone: 07-12-2012 09:46-0400 Body temperature 97.2 [degF] Irina Waddell [facility]; [facility] Work Phone: 07-12-2012 09:46-0400 Body weight 85.28 kg Irina Waddell [facility]; [facility] Work Phone: 07-12-2012 09:46-0400 Diastolic blood pressure 64 mm[Hg] Irina Waddell [facility]; [facility] Work Phone: 07-12-2012 09:46-0400 Heart rate 56 /min Irina Waddell [facility]; [facility] Work Phone: 07-12-2012 09:46-0400 Respiratory rate 16 /min Irina Waddell [facility]; [facility] Work Phone: 07-12-2012 09:46-0400 Systolic blood pressure 100 mm[Hg] Irina Waddell [facility]; [facility] Work Phone: 06-20-2012 08:03-0400 Body height 152.4 cm Enriqueta Arthur J LUIS [facility]; [facility] Work Phone: 06-20-2012 08:03-0400 Body mass index (BMI) [Ratio] 36.85 kg/m2 Enriqueta Arthur DIETZ [facility]; [facility] Work Phone: 06-20-2012 08:03-0400 Body surface area Derived from formula 1.82 m2 Enriqueta Arthur DIETZ [facility]; [facility] Work Phone: 06-20-2012 08:03-0400 Body temperature 98.8 [degF] Enriqueta Arthur [facility]; [facility] Work Phone: 06-20-2012 08:03-0400 Body weight 85.59 kg Enriqueta Arthur DI[facility]; [facility] Work Phone: 06-20-2012 08:03-0400 Diastolic blood pressure 78 mm[Hg] Enriqueta Arthur DIETZ [facility]; [facility] Work Phone: 06-20-2012 08:03-0400 Heart rate 70 /min Enriqueta Gibson LPN [facility]; [facility] Work Phone: 06-20-2012 08:03-0400 Respiratory rate 17 /min Enriqueta Gibson LPN [facility]; [facility] Work Phone: 06-20-2012 08:03-0400 Systolic blood pressure 124 mm[Hg] Enriqueta Arthur DI[facility]; [...] Derived from formula 1.84 m2 Enriqueta Gibson LPN [facility]; [facility] Work Phone: 10-26-2011 08:24-0400 Body temperature 97.8 [degF] Enriqueta Gibson LPN [facility]; [facility] Work Phone: 10-26-2011 08:24-0400 Body weight 84.82 kg Enriqueta Gibson LPN [facility]; [facility] Work Phone: 10-26-2011 08:24-0400 Diastolic blood pressure 70 mm[Hg] Enriqueta Gibson J LUIS [facility]; [facility] Work Phone: 10-26-2011 08:24-0400 Heart rate 78 /min Enriqueta Gibson J LUIS [facility]; [facility] Work Phone: 10-26-2011 08:24-0400 Respiratory rate 16 /min Enriqueta Gibson J LUIS [facility]; [facility] Work Phone: 10-26-2011 08:24-0400 Systolic blood pressure 112 mm[Hg] Enriqueta Gibson J LUIS [facility]; [facility] Work Phone: 10-22-2011 10:47-0400 Body height 154.94 cm Enriqueta Boycemaurilio DIETZ [facility]; [facility] Work Phone: 10-22-2011 10:47-0400 Body mass index (BMI) [Ratio] 35.33 kg/m2 Enriqueta Arthur DIETZ [facility]; [facility] Work Phone: 10-22-2011 10:47-0400 Body surface area Derived from formula 1.84 m2 Enriqueta Arthur DIETZ [facility]; [facility] Work Phone: 10-22-2011 10:47-0400 Body temperature 98.2 [degF] Enriqueta Arthur J LUIS [facility]; [facility] Work Phone: 10-22-2011 10:47-0400 Body weight 84.82 kg Enriqueta Arthur DIETZ [facility]; [facility] Work Phone: 10-22-2011 10:47-0400 Diastolic blood pressure 78 mm[Hg] Enriqueta Arthur DIETZ [facility]; [facility] Work Phone: 10-22-2011 10:47-0400 Heart rate 72 /min Enriqueta Arthur DIETZ [facility]; [facility] Work Phone: 10-22-2011 10:47-0400 Respiratory rate 16 /min Enriqueta Gibson J LUIS [facility]; [facility] Work Phone: 10-22-2011 10:47-0400 Systolic blood pressure 134 mm[Hg] Enriqueta Gibson J LUIS [facility]; [facility] Work Phone: 10-12-2011 15:16-0400 Body height 154.94 cm Enriqueta Arthur J LUIS [facility]; [...] Diastolic blood pressure 76 mm[Hg] Enriqueta Gibson J LUIS [facility]; [facility] Work Phone: 10-12-2011 15:16-0400 Heart rate 72 /min Enriqueta Arthur DIETZ [facility]; [facility] Work Phone: 10-12-2011 15:16-0400 Respiratory rate 16 /min Enriqueta Gibson J LUIS [facility]; [facility] Work Phone: 10-12-2011 15:16-0400 Systolic blood pressure 120 mm[Hg] Enriqueta Gibson J LUIS [facility] [...] 08-24-2011 08:08-0400 Body weight 83.01 kg Enriqueta Boycemaurilio DIETZ [facility]; [facility] Work Phone: 08-24-2011 08:08-0400 Diastolic blood pressure 70 mm[Hg] Enriqueta Arthur DIETZ [facility]; [facility] Work Phone: 08-24-2011 08:08-0400 Heart rate 66 /min Enriqueta Arthur DIETZ [facility]; [facility] Work Phone: 08-24-2011 08:08-0400 Respiratory rate 16 /min Enriqueta Gibson J LUIS [facility]; [facility] Work Phone: 08-24-2011 08:08-0400 Systolic blood pressure 118 mm[Hg] Enriqueta Arthur [...] 07-05-2011 09:08-0400 Body height 154.94 cm Enriqueta Arthur DIETZ [facility]; [facility] Work Phone: 07-05-2011 09:08-0400 Body mass index (BMI) [Ratio] 34.58 kg/m2 Enriqueta Gibson LPN [facility]; [facility] Work Phone: 07-05-2011 [id number] Body surface area Derived from formula 1.82 m2 Enriqueta Gibson LPN [facility]; [facility] Work Phone: 07-05-2011 [id number] Body temperature 98 [degF] Enriqueta Arthur DI[facility]; [facility] Work Phone: 07-05-2011 09:08-0400 Body weight 83.01 kg Enriqueta Arthur DIETZ [facility]; [...] 04-14-2011 10:08-0500 Body height 154.94 cm Irina Zavala [facility]; [facility] Work Phone: 04-14-2011 10:08-0500 Body mass index (BMI) [Ratio] 34.96 kg/m2 Irina Zavala [facility]; [facility] Work Phone: 04-14-2011 10:08-0500 Body surface area Derived from formula 1.83 m2 Irina Waddell [facility]; [facility] Work Phone: 04-14-2011 10:08-0500 Body temperature 97.9 [degF] Irina Zavala [facility]; [facility] Work Phone: 04-14-2011 10:08-0500 Body weight 83.92 kg Irina Zavala [facility]; [facility] Work Phone: 04-14-2011 10:08-0500 Diastolic blood pressure 82 mm[Hg] Irina Flinner [facility]; [facility] Work Phone: 04-14-2011 10:08-0500 Heart rate 64 /min Irina Waddell [facility]; [facility] Work Phone: 04-14-2011 10:08-0500 Respiratory rate 16 /min Irina Waddell [facility]; [facility] Work Phone: 04-14-2011 10:08-0500 Systolic blood pressure 118 mm[Hg] Irina Waddell [facility]; [facility] Work Phone: 03-31-2011 09:54-0500 Body height 154.94 cm Irina Waddell [facility]; [facility] Work Phone: 03-31-2011 09:54-0500 Body mass index (BMI) [Ratio] 34.96 kg/m2 Irina Waddell [facility]; [facility] Work Phone: 03-31-2011 09:54-0500 Body surface area Derived from formula 1.83 m2 Irina Waddell [facility]; [facility] Work Phone: 03-31-2011 09:54-0500 Body temperature 96.9 [degF] Irina Waddell [facility]; [facility] Work Phone: 03-31-2011 09:54-0500 Body weight 83.92 kg Irina Waddell [facility]; [facility] Work Phone: 03-31-2011 09:54-0500 Diastolic blood pressure 70 mm[Hg] Irina Waddell [facility]; [facility] Work Phone: 03-31-2011 09:54-0500 Heart rate 60 /min Irina Waddell [facility]; [facility] Work Phone: 03-31-2011 09:54-0500 Respiratory rate 16 /min Irina Waddell [facility]; [facility] Work Phone: 03-31-2011 09:54-0500 Systolic blood pressure 122 mm[Hg] Irina Waddell [...] 02-16-2011 15:38-0500 Body weight 81.65 kg Enriqueta Gibson LPN [facility]; [facility] Work Phone: 02-16-2011 15:38-0500 Diastolic blood pressure 72 mm[Hg] Enriqueta Gibson LPN [facility]; [facility] Work Phone: 02-16-2011 15:38-0500 Heart rate 64 /min Enriqueta Gibson LPN [facility]; [facility] Work Phone: 02-16-2011 15:38-0500 Respiratory rate 16 /min Enriqueta Gibson LPN [...] (BldA) [Mass fraction] 95 % GERMAN Mao LPN [facility]; [facility] [...] 12-14-2010 08:46-0400 Body temperature 97.2 [degF] Irina Waddell [facility]; [facility] Work Phone: 12-14-2010 08:46-0400 Body weight 81.65 kg Irina Zavala [facility]; [facility] Work Phone: 12-14-2010 08:46-0400 Diastolic blood pressure 76 mm[Hg] Irina Zavala [facility]; [facility] Work Phone: 12-14-2010 08:46-0400 Heart rate 68 /min Irina Zavala [facility]; [facility] Work Phone: 12-14-2010 08:46-0400 Respiratory rate 16 /min Irina Zavala [facility]; [facility] Work Phone: 12-14-2010 08:46-0400 Systolic blood pressure 122 mm[Hg] Irina Zavala [facility]; [facility] Work Phone: 08-03-2010 10:15-0400 Body height 154.94 cm Irina Zavala [facility]; [facility] Work Phone: 08-03-2010 10:15-0400 Body mass index (BMI) [Ratio] 35.71 kg/m2 Irina Waddell [facility]; [facility] Work Phone: 08-03-2010 10:15-0400 Body surface area Derived from formula 1.84 m2 Irina Waddell [facility]; [facility] Work Phone: 08-03-2010 10:15-0400 Body temperature 97.2 [degF] Irina Waddell [facility]; [facility] Work Phone: 08-03-2010 10:15-0400 Body weight 85.73 kg Irina Waddell [facility]; [facility] [...] Diastolic blood pressure 82 mm[Hg] Irina Waddell [facility]; [facility] [...] 03-23-2010 08:21-0500 Respiratory rate 16 /min Enriqueta Gibson LPN [facility]; [facility] Work Phone: 03-23-2010 08:21-0500 SaO2% (BldA) [Mass fraction] 96 % Enriqueta Gibson LPN [facility]; [facility] Work Phone: 03-23-2010 08:21-0500 Systolic blood pressure 118 mm[Hg] Enriqueta Gibson LPN [facility]; [facility] Work Phone: 10-07-2009 08:29-0400 Body temperature 97.3 [degF] Irina Waddell [facility]; [facility] Work Phone: 10-07-2009 08:29-0400 Body weight 83.92 kg Irina Bairon [facility]; [facility] Work Phone: 10-07-2009 08:29-0400 Diastolic blood pressure 82 mm[Hg] Irina Bairon [facility]; [facility] Work Phone: 10-07-2009 08:29-0400 Heart rate 60 /min Irina Bairon [facility]; [facility] Work Phone: 10-07-2009 08:29-0400 Respiratory rate 18 /min Irina Bairon [facility]; [facility] Work Phone: 10-07-2009 08:29-0400 Systolic blood pressure 124 mm[Hg] Irina Bairon [facility]; [facility] Work Phone: 06-17-2009 12:12-0400 Body temperature 98.3 [degF] Angelica Barone RN [facility]; [facility] Work Phone: 06-17-2009 12:12-0400 Body weight 83.92 kg Angelica Barone RN [facility]; [facility] Work Phone: 06-17-2009 12:12-0400 Diastolic blood pressure 78 mm[Hg] Angelica Mast RN [facility]; [facility] Work Phone: 06-17-2009 12:12-0400 Heart rate 60 /min Angelica Barone RN [facility]; [facility] Work Phone: 06-17-2009 12:12-0400 Respiratory rate 16 /min Angelica Mast RN [facility]; [facility] Work Phone: 06-17-2009 12:12-0400 Systolic blood pressure 126 mm[Hg] Angelica Mast RN [facility]; [facility] [...] 03-25-2009 14:53-0500 Respiratory rate 16 /min Enriqueta Arthur DIETZ [...] 10:03-0500 Diastolic blood pressure 62 mm[Hg] Irina Waddell [facility]; [facility] Work Phone: 03-18-2009 10:03-0500 Head Occipital-frontal circumference 0 cm Irina Waddell [facility]; [facility] Work Phone: 03-18-2009 10:03-0500 Heart rate 80 /min Irina Waddell [facility]; [facility] Work Phone: 03-18-2009 10:03-0500 Respiratory rate 18 /min Irina Waddell [facility]; [facility] Work Phone: 03-18-2009 10:03-0500 Systolic blood pressure 96 mm[Hg] Irina Waddell [facility]; [facility] Work Phone: 12-30-2008 [id number] Body height [address] [facility]; [facility] Work Phone: 12-30-2008 14:06-0400 Body temperature 97.1 [degF] [facility]; [facility] Work Phone: 12-30-2008 14:06-0400 Body weight 81.[address] [facility]; [facility] Work Phone: 12-30-2008 14:06-0400 Diastolic blood pressure 72 mm[Hg] [facility]; [facility] Work Phone: 12-30-2008 14:06-0400 Head Occipital-frontal circumference [address] [facility]; [facility] Work Phone: 12-30-2008 14:06-0400 Heart rate 60 /min [facility]; [facility] Work Phone: 12-30-2008 14:06-0400 Respiratory rate 18 /min [facility]; [facility] Work Phone: 12-30-2008 14:06-0400 Systolic blood pressure 118 mm[Hg] [facility]; [facility] Work Phone: 11-22-2008 10:34-0400 Body height 0 cm Irina Waddell [facility]; [facility] Work Phone: 11-22-2008 10:34-0400 Body temperature 97.4 [degF] Irina Waddell [facility]; [facility] Work Phone: 11-22-2008 10:34-0400 Body weight 82.56 kg Irina Waddell [facility]; [facility] Work Phone: 11-22-2008 10:34-0400 Diastolic blood pressure 72 mm[Hg] Irina Waddell [facility]; [facility] Work Phone: 11-22-2008 10:34-0400 Head Occipital-frontal circumference 0 cm Irina Bairon [facility]; [facility] Work Phone: 11-22-2008 10:34-0400 Heart rate 60 /min Irina Waddell [facility]; [facility] Work Phone: 11-22-2008 10:34-0400 Respiratory rate 18 /min Irina Waddell [facility]; [facility] Work Phone: 11-22-2008 10:34-0400 Systolic blood pressure 122 mm[Hg] Irina Bairon [facility]; [facility] Work Phone: 08-20-2008 10:43-0400 Body height 157.48 cm Irina Waddell [facility]; [facility] Work Phone: 08-20-2008 10:43-0400 Body mass index (BMI) [Ratio] 34.02 kg/m2 Irina Waddell [facility]; [facility] Work Phone: 08-20-2008 10:43-0400 Body surface area Derived from formula 1.85 m2 Irina Waddell [facility]; [facility] Work Phone: 08-20-2008 10:43-0400 Body temperature 97 [degF] Irina Waddell [facility]; [facility] Work Phone: 08-20-2008 10:43-0400 Body weight 84.37 kg Irina Waddell [facility]; [facility] Work Phone: 08-20-2008 10:43-0400 Diastolic blood pressure 80 mm[Hg] Irina Waddell [facility]; [facility] Work Phone: 08-20-2008 10:43-0400 Head Occipital-frontal circumference 0 cm Irina Waddell [facility]; [facility] Work Phone: 08-20-2008 10:43-0400 Heart rate 64 /min Irina Waddell [facility]; [facility] Work Phone: 08-20-2008 10:43-0400 Respiratory rate 16 /min Irina Waddell [facility]; [facility] Work Phone: 08-20-2008 10:43-0400 Systolic blood pressure 116 mm[Hg] Irina Waddell [facility]; [facility] Work Phone: 07-31-2008 10:13-0400 Body height 0 cm Irina Waddell [facility] Internal [facility]; [facility] Work Phone: 07-31-2008 10:13-0400 Body temperature 98.2 [degF] Irina Waddell [facility]; [facility] Work Phone: 07-31-2008 10:13-0400 Body weight 84.37 kg Irina Waddell [facility] [...] 09:56-0400 Body temperature 97.9 [degF] Irina Waddell [facility] Internal Medicine; [facility] [...] 10:19-0500 Body height 0 cm Irina Waddell [facility] [...] 12-20-2006 08:13-0400 Body height 154.94 cm Enriqueta Arthur DIETZ [facility]; [facility] Work Phone: 12-20-2006 08:13-0400 Body mass index (BMI) [Ratio] 33.54 kg/m2 Enriquetashar Gibson LPN [facility]; [facility] Work Phone: 12-20-2006 08:130400 Body surface area Derived from formula 1.8 m2 Enriqueta Gibson LPN [facility]; [facility] Work Phone: 12-20-2006 08:13-0400 Body temperature 98.5 [degF] Enriqueta Gibson LPN [facility]; [facility] Work Phone: 12-20-2006 08:13-0400 Body weight 80.51 kg Enriqueta Arthur DIETZ [facility]; [facility] Work Phone: 12-20-2006 08:13-0400 Diastolic blood pressure 60 mm[Hg] Enriqueta Gibson LPN [facility]; [facility] Work Phone: 12-20-2006 08:13-0400 Head Occipital-frontal circumference 0 cm Enriqueta Gibson LPN [facility]; [facility] Work Phone: 12-20-2006 08:13-0400 Heart rate 70 /min Enriqueta Gibson LPN [facility]; [facility] Work Phone: 12-20-2006 08:13-0400 Respiratory rate 16 /min Enriqueta Gibson LPN [facility]; [facility] Work Phone: 12-20-2006 08:13-0400 Systolic blood pressure 108 mm[Hg] Enriqueta Gibson LPN [facility]; [...] Derived from formula 1.8 m2 Irina Waddell [facility] Internal Medicine; [facility] Work Phone: 05-24-2006 13:34-0500 Body temperature 98.5 [degF] Irina Waddell [facility]; [facility] Work Phone: 05-24-2006 13:34-0500 Body weight 80.51 kg Irina Bairon [facility] Internal Medicine; [facility] Work Phone: 05-24-2006 13:34-0500 Diastolic blood pressure 72 mm[Hg] Irina Waddell [facility]; [facility] Work Phone: 05-24-2006 13:34-0500 Head Occipital-frontal circumference 0 cm Irina Waddell [facility] Internal Medicine; [facility] Work Phone: 05-24-2006 13:34-0500 Heart rate 72 /min Irina Waddell [facility] Internal Medicine; [facility] Work Phone: 05-24-2006 13:34-0500 Respiratory rate 16 /min Irina Waddell [facility]; [facility] Work Phone: 05-24-2006 13:34-0500 Systolic blood pressure 98 mm[Hg] Irina Waddell [facility] Internal Medicine; [facility] Work Phone: 03-18-2006 11:26-0500 Body height 0 cm Sheba Cook [facility] Internal Medicine; [facility] Work Phone: 03-18-2006 11:26-0500 Body temperature 97.8 [degF] Sheba Cook [facility]; [facility] Work Phone: 03-18-2006 11:26-0500 Body weight 0 kg Sheba Cook [facility]; [facility] Work Phone: 03-18-2006 11:26-0500 Diastolic blood pressure 82 mm[Hg] Sheba Cook [facility] Internal Medicine; [facility] Work Phone: 03-18-2006 11:26-0500 Head Occipital-frontal circumference 0 cm Sheba Cook [facility]; [facility] Work Phone: 03-18-2006 11:26-0500 Heart rate 16 /min Sheba Cook [facility]; [facility] Work Phone: 03-18-2006 11:26-0500 Respiratory rate 68 /min Sheba Cook [facility]; [facility] Work Phone: 03-18-2006 11:26-0500 Systolic blood pressure 130 mm[Hg] Sheab Cook [facility]; [facility] Work Phone: 03-17-2006 09:29-0500 Body height 0 cm Shebaeddi Cook [facility]; [facility] Work Phone: 03-17-2006 09:29-0500 Body temperature 98.1 [degF] Sheba Cook [facility]; [facility] Work Phone: 03-17-2006 09:29-0500 Body weight 83.01 kg Shebaeddi Cook [facility]; [facility] Work Phone: 03-17-2006 09:29-0500 Diastolic blood pressure 78 mm[Hg] Shebaeddi Cook [facility]; [facility] Work Phone: 03-17-2006 09:29-0500 Head Occipital-frontal circumference 0 cm Shebaeddi Cook [facility]; [facility] Work Phone: 03-17-2006 09:29-0500 Heart rate 64 /min Shebaeddi Cook [facility]; [facility] Work Phone: 03-17-2006 09:29-0500 Respiratory rate 16 /min Shebaeddi Cook [facility]; [facility] Work Phone: 03-17-2006 09:29-0500 Systolic blood pressure 108 mm[Hg] Shebaeddi Cook [facility]; [facility] Work Phone: 12-14-2005 13:25-0400 Body height 0 cm Enriqueta Gibson LPN [facility]; [facility] Work Phone: 12-14-2005 13:25-0400 Body temperature 98 [degF] Enriqueta Arthur DIETZ [facility]; [facility] Work Phone: 12-14-2005 13:25-0400 Body weight 83.12 kg Enriqueta Arthur DIETZ [facility]; [facility] Work Phone: 12-14-2005 13:25-0400 Diastolic blood pressure 80 mm[Hg] Enriqueta Gibson LPN [facility]; [facility] Work Phone: 12-14-2005 13:25-0400 Head Occipital-frontal circumference 0 cm Enriqueta Arthur DIETZ [facility]; [facility] Work Phone: 12-14-2005 13:25-0400 Heart rate 81 /min Enriqueta Gibson LPN [facility]; [facility] Work Phone: 12-14-2005 13:25-0400 Respiratory rate 16 /min Enriqueta Arthur DIETZ [facility]; [facility] Work Phone: 12-14-2005 13:25-0400 Systolic blood pressure 110 mm[Hg] Enriqueta Arthur DIETZ [facility]; [facility] Work Phone: Encounters Encounter Date Encounter Type Care Provider Facility Start: 12-06-2024 ambulatory [facility] Facility :[facility] Start: 11-19-2024 End: 11-19-[address] Catherine Magana DO Work Phone: -Nuclear Medicine [facility] Start: 11-19-2024 End: 11-19-2024 Patient encounter procedure Daljitesteban Matos DO -Nuclear Medicine [facility] Work Phone: Start: 11-19-2024 End: 11-19-2024 ambulatory Daljit [place] Facility:[facility] Start: 10-30-2024 End: 10-30-2024 Patient encounter procedure Daljit Matos DO -[facility] Work Phone: Start: 10-30-2024 End: 10-30-[address] Catherine Magana DO Work Phone: -[facility] Start: 09-19-2024 Non-patient / Non-visit Dr. Fabiola [place] -[facility] Start: 09-19-2024 End: 09-19-[address] Catherine Magana DO Work Phone: -Cardiovascular Services Start: 09-19-2024 End: 09-19-[address] Bridgette Casillas MD -Cardiovascular Services Work Phone: Start: 09-19-2024 End: 09-19-2024 ambulatory Bridgette Casillas Facility:[facility] Start: 09-11-2024 End: 09-11-[address] Catherine Magana DO Work Phone: [facility] Work Phone: Start: 09-11-2024 End: 09-11-[address] Catherine Magana DO -[facility] Work Phone: Start: 09-11-2024 End: 09-11-2024 ambulatory Catherine Fast Facility:[facility] Start: 06-14-2024 End: 06-14-2024 Patient encounter procedure Krystyna Puga PA-C -[facility] Work Phone: Start: 06-14-2024 End: 06-14-2024 ambulatory Catherine Fast Facility:[facility] Start: 06-04-2024 Non-patient / Non-visit Dr. Edvin MO -[facility] Start: 06-04-2024 End: 06-04-2024 Admission to same day surgery center Dr. Roberto Parker MD -Surgical Day Care Start: 06-04-2024 End: 06-04-[address] Catherine Magana DO Work Phone: [facility] Work Phone: Start: 05-21-2024 End: 05-21-[address] Roberto Parker MD -[facility] Work Phone: Start: 05-21-2024 End: 05-21-2024 ambulatory Catherine Magana Facility:[facility] Start: 04-04-2024 End: 04-04-[address] Catherine Magana DO -Outpatient Breast Imaging Work Phone: Start: 04-04-2024 End: 04-04-2024 ambulatory Catherine Fast Facility:[facility] Start: 04-02-2024 End: 04-02-[address] Catherine Magana DO -Outpatient Breast Imaging Work Phone: Start: 04-02-2024 End: 04-02-2024 ambulatory Catherine Fast Facility:[facility] Start: 03-29-2024 End: 03-29-[address] Roberto Parker MD -Nuclear Medicine, [facility] Work Phone: Start: 03-29-2024 End: 03-29-2024 ambulatory Roberto Parker Facility:[facility] Start: 03-05-2024 End: 03-05-[address] Roberto Parker MD -[facility] Work Phone: Start: 03-05-2024 End: 03-05-2024 ambulatory Catherine Magana Facility:[facility] Start: 02-21-2024 End: 02-21-[address] Catherine Magana DO -Ultrasound, [facility] Work Phone: Start: 02-21-2024 End: 02-21-2024 ambulatory Catherine Magana Facility:[facility] Start: 06-07-2023 Non-patient / Non-visit Dr. Miranda Work Phone: [facility] Start: 06-07-2023 End: 06-07-[address] Catherine Magana Work Phone: [facility] Work Phone: Start: 06-07-2023 End: 06-07-[address] Catherine Magana Work Phone: [facility]-Cardiovascular Services Work Phone: Start: 03-31-2023 End: 03-31-[address] [facility] Work Phone: Start: 03-31-2023 End: 03-31-2023 Patient encounter procedure [facility]-Outpatient Bone Densitometry Work Phone: Start: 03-08-2023 Registered Referred [facility]-Cardiovascular Services Work Phone: Start: 10-25-2022 End: 10-25-2022 José Miguel Brsyon MD Work Phone: [facility] Start: 10-22-2022 End: 10-22-2022 ambulatory VIRGILIO ROJAS Facility:[facility] Start: 10-22-2022 End: 10-22-2022 Subsequent hospital visit by physician Meek [facility] Work Phone: Radiology Comment on above: Swelling of right robles nd [M79.89] Start: 10-22-2022 End: 10-22-2022 Patient encounter procedure Farzana Larsen APRN.CNP Work Phone: [facility] Comment on above: Swelling of right robles nd (Primary Dx); Thumb pain, right Start: 10-18-2022 End: 10-18-2022 ambulatory VIRGILIO ROJAS Facility:[facility] Start: 10-11-2022 End: 10-12-2022 ambulatory VIRGILIO ROJAS Facility:[facility] Start: 09-09-2022 End: 09-09-2022 Admission to same day surgery center [facility]-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 Work Phone: Start: 06-18-2022 End: 06-18-2022 ambulatory VIRGILIO ROJAS Facility:[facility] Start: 06-18-2022 End: 06-18-2022 Patient encounter procedure Virgilio Rojas MD Work Phone: [facility] [place] Comment on above: GERD without esophag itis (Primary Dx) Start: 04-19-2022 End: 04-19-2022 ambulatory VIRGILIO ROJAS Facility:[facility] Start: 04-19-2022 End: 04-19-2022 Patient encounter procedure Virgilio Rojas MD Work Phone: [facility] Comment on above: Medicare annual well ness visit, subsequent (Primary Dx); GERD without esophagitis; Elevated blood sugar; Nonrheumatic aortic valve insufficiency; Edema, unspecified type; Diverticulosis of colon; Herpes simplex infection of genitourinary system; Advance directive discussed with patient Start: 04-12-2022 End: 04-12-2022 ambulatory VIRGILIO ROJAS Facility:[facility] Start: 02-25-2022 End: 02-25-2022 Admission to same day surgery center [facility]-Surgical Day Care Start: 02-25-2022 End: 02-25-2022 [facility] Work Phone: Start: 01-15-2022 Refill Virgilio andrew MD Work Phone: [facility] Comment on above: Refill Request Start: 09-16-2021 End: 09-16-2021 Patient encounter procedure Virgilio Rojas MD Work Phone: [facility] Comment on above: Nonrheumatic aortic valve insufficiency (Primary Dx); GERD without esophagitis; Edema, unspecified type; Herpes simplex infection of genitourinary system; Medication management; Elevated blood sugar Start: 08-27-2021 End: 08-27-2021 Patient encounter procedure Marilyn Rubi APRN.CNP Work Phone: [facility] Comment on above: Allergic rash presen t on examination (Primary Dx) Start: 07-28-2021 Refill Virgilio andrew MD Work Phone: [facility] Comment on above: Refill Request Start: 06-22-2021 End: 06-22-2021 Patient encounter procedure Maria Dolores Garcia PA-C Work Phone: [facility] Comment on above: Palpitations (Primar y Dx); Nonrheumatic aortic valve insufficiency; GERD without esophagitis Start: 06-14-2021 End: 06-14-2021 Emergency department patient visit [facility]-Emergency Department Start: 04-17-2021 Patient encounter procedure Maria Dolores Garcia PA-C Work Phone: [facility] Work Phone: Start: 04-09-2021 End: 04-09-2021 Patient encounter procedure [facility]-Laboratory, Specimen Start: 04-13-2016 End: 04-15-2016 José Miguel [...] End: 10-07-2009 Preprocedural examination done José Miguel Bryson MD [...] Work Phone: Patient encounter procedure Laurence Najera CELL BIOLOGY SCIENTIST [facility]; [facility] Work Phone: End: 11-09-2011 Patient encounter procedure Baylee Shipley [facility]; [facility] Work Phone: End: 04-13-2016 Preprocedural examination done José Miguel Bryson MD Work Phone: [facility]; [facility] Work Phone: End: 08-03-2010 Preprocedural examination done Hat Sprayer [facility]; [facility] Work Phone: Procedures Date Procedure Procedure Detail Performing Clinician Start: 11-19-2024 [address] empt[address] study Dr[address] Catherine Magana DO Work Phone: Start: 09-11-2024 Computed tomography of abdomen and [...] 03-31-2023 Dual energy X-ray absorptiometry Dr. Catherine Magana Work Phone: Start: 03-31-2023 Screening mammography Start: 10-22-2022 Radex hand minimum 3 views Farzana Leora MAHAJAN Work Phone: Start: 09-09-2022 Decompression of median [...] Pulmonary Function Test - complete Michelle Trejo HEALTH INFORMATION ASSISTANT Work Phone: Start: 07-12-2016 End: 07-30-2016 Pulmonary Function Test - complete Michelle Trejo HEALTH INFORMATION ASSISTANT Work Phone: Start: 07-01-2016 End: 07-01-2016 Urnls dip stick/tablet rgnt non-auto w/o micrscp Roberto LOPEZ Work Phone: Start: 07-01-2016 End: 07-01-2016 Urinalysis nonauto w/o scope Roberto LOPEZ Work Phone: Start: 11-12-2015 End: 11-12-2015 Ecg routine ecg w/least 12 lds w/i&r [MEASUREMENTS ANALYSIS] Date of Test: 11/12/2015 10:42:50; Heart Rate: 42; OK Interval: 170; QRS: 100; QT Interval: 478; Corrected QT Interval (QTc): 447; P Wave Melrose: 33; QRS Wave Melrose: -9; T Wave [place]rose: -1; Blood Pressure: 106/74 [ECG DIAGNOSTIC STATEMENTS] Date of Test: 11/12/2015 10:42:50; Summary: Marked sinus Bradycardia BORDERLINE RHYTHM Sugar Hebert Work Phone: Start: 09-25-2015 End: 09-26-2015 Procedure Note: See Note; NOTES: [facility] Imaging Services [address] [place] [address] Verdana 4d Bilat Scrn Digital AND CAD MR#: [id number] Acct: [id number] Name: SUGAR COONEY Rep #: [id number] : 1940 F 75 From: Kait Osman MD PCP: Catherine Magana DO Status: REG CLI Study: Bilat Scrn Digital AND CAD Date of Exam: 09/25/15 Exam# [id number] Ordering Dr: Catherine Magana DO MAMMOGRAPHY - [...] delay biopsy of a clinically suspicious abnormality. [id number] Electronically Signed: Kait Osman MD at 17:26 EDT Tel , Service support [phone], CC: Catherine Magana DO Fire Extinguisher Repairer: Signed Catherine Magana DO Work Phone: Start: 08-07-2015 End: 07-30-2016 Follow Up Appt 1 year Michelle Trejo HEALTH INFORMATION ASSISTANT Work Phone: Start: 08-07-2015 End: 07-30-2016 Follow Up Appt 1 year Michelle Trejo HEALTH INFORMATION ASSISTANT Work Phone: Start: 07-20-2015 End: 07-20-2015 Procedure Note: See Note; NOTES: [facility] Pulmonary Services/Neurology [address] [place] [id number] Pulmonary Function Test (Comp) MR#: [id number] Acct: [id number] Name: SUGAR COONEY Rep #: [id number] : 1940 75 From: Marcel Landis MD Referring Dr: Marcel Landis MD Status: REG CLI Ordering Dr: Marcel Landis MD Date: 07/07/15 Location: [facility] Sex: F C DATE OF SERVICE: [...] C C: Primary Care Physician . T: GALINDO JOB: [id number] 07/20/15 0844 <Electronically signed by Marcel Landis MD> Date Marcel Landis MD CC: Marcel Landis MD; Catherine Magana DO Date Dictated: 07/19/15 1000 Date Transcribed: 07/19/15 1000 Fire Extinguisher Repairer: Signed Marcel Landis Work Phone: Start: 11-12-2014 End: 11-12-2014 Procedure Note: See Note; NOTES: [facility] Physical Therapy [facility] [place], [place] [address] Fax REHABILITATION SERVICES DISCHARGE SUMMARY MR#: [id number] Acct: [id number] Name: SUGAR COONEY Rep #: [id number] : 1940 74 From: Toni Danielson Referring Dr.: Catherine Magana DO Status: PRE RCR Eval [...] again, thank you for this referral. Toni Danielson PT T: GALINDO JOB: [id number] <Electronically signed by Toni Danielson > 11/12/14 1107 CC: Signed José Miguel Bryson MD Work Phone: Start: 10-01-2014 End: 10-01-2014 Procedure Note: See Note; NOTES: [facility] Physical Therapy [facility] [address] [place] [address] Fax REHABILITATION SERVICES INITIAL EVALUATION MR#: [id number] Acct: [id number] Name: SUGAR COONEY Rep #: [id number] : 1940 74 From: Toni Danielson Referring Dr.: Catherine Magana DO Status: REG RCR Insurance: [facility] MED[facility] Evne Date: DATE OF SERVICE: REFERRING PHYSICIAN: Dr. [...] strengthening. Toni Danielson, PT T: GALINDO JOB: [id number] <Electronically signed by Toni Danielson > 10/01/14 1001 CC: Signed For Medicare only, by signing this I certify the plan of care. ___ Physicians Signature Date José Miguel Bryson MD Work Phone: Start: 09-20-2014 End: 09-20-2014 Procedure Note: See Note; NOTES: [facility] Imaging Services [address] [place] [address] Ultrasound Report MR#: [id number] Acct: [id number] Name: SUGAR COONEY Rep #: [id number] : 1940 F 74 From: Raul Brandt MD PCP: Catherine Magana DO Status: REG CLI Study: Breast Limited Unilateral Date of Exam: 09/20/14 Exam# [id number] Ordering Dr: Catherine Magana DO STUDY: ULTRASOUND [...] Raul Brandt MD at 11:21 EDT Tel [phone], Service support [phone], CC: Catherine Magana DO Fire Extinguisher Repairer: Signed Catherine Magana DO Work Phone: Start: 09-19-2014 End: 09-19-2014 Procedure Note: See Note; NOTES: [facility] Imaging Services [address] [place] [address] Breast Imaging Report MR#: [id number] Acct: [id number] Name: SUGAR COONEY Rep #: [id number] : 1940 F 74 From: aRul Brandt MD PCP: Catherine Magana DO Status: REG CLI Study: Estella Carrera Digital AND CAD Date of Exam: 09/19/14 Exam# [id number] Ordering Dr: Catherine Magana DO MAMMOGRAPHY - [...] Raul Brandt MD at 16:14 EDT Tel [phone], Service support [phone], CC: Catherine Magana DO Fire Extinguisher Repairer: Signed Catherine Magana DO Work Phone: Start: 09-19-2014 End: 09-20-2014 Procedure Note: See Note; NOTES: [facility] Imaging Services [address] [place] [address] Bone Density Report MR#: [id number] Acct: [id number] Name: SUGAR COONEY Rep #: [id number] : 1940 F 74 From: Raul Brandt MD PCP: Catherine Magana DO Status: REG CLI Study: Dexa Bone Density Study (HP) Date of Exam: 09/19/14 Exam# [id number] Ordering Dr: Catherine Magana DO STUDY: DUAL [...] Raul Brandt MD at 15:50 EDT Tel [phone], Service support [phone], CC: Catherine Magana DO Fire Extinguisher Repairer: Signed Catherine Magana DO Work Phone: Start: 09-11-2014 End: 09-11-2014 Procedure Note: See Note; NOTES: [facility] Imaging Services [address] [place] [address] Radiology Report MR#: [id number] Acct: [id number] Name: SUGAR COONEY Rep #: [id number] : 1940 F 74 From: Jana Mcclelland MD PCP: Catherine Magana DO Status: REG CLI Study: Thoracic Spine 3 Views Date of Exam: 09/11/14 Exam# [id number] Ordering Dr: Catherine Magana DO STUDY: X-RAY [...] MD at 23:38 EDT , Service support [phone], RAD/Thoracic Spine 3 Views IMPRESSION: Degenerative disease throughout thoracic spine. No acute fracture. Electronically Signed: Joseph Mcclelland MD at 23:38 EDT , Service support [phone], CC: Catherine Magana DO Fire Extinguisher Repairer: Signed Catherine Magana DO Work Phone: Start: 08-29-2014 End: 08-29-2014 Procedure Note: See Note; NOTES: [facility] Pulmonary Services/Neurology [address] [place] [address] MR#: [id number] Acct: [id number] Name: SUGAR COONEY Rep #: [id number] : 1940 74 From: Marcel Landis MD Referring Dr: Marcel Landis MD Date: Ordering Dr: Sex: F C Location: PSN PSN 6 Minute Walk Test - 6 Minute Walk Test 6 Minute Walk Test: 6 Minute Walk Test PSN 6 Minute Walk Test Start: 08/01/14 11:26 Freq: Status: Active Document 08/01/14 11:26 FR (Rec: 08/01/14 11:29 FR [id number]) 6 Minute Walk Test Date Performed 08/01/14 [...] Date Dictated: 08/01/14 1559 Date Transcribed: 08/01/141558 Fire Extinguisher Repairer: Marcel Bryson MD Work Phone: Start: 08-07-2014 End: 08-08-2014 Documentation of current medications Marcel Landis Work Phone: Start: 08-07-2014 End: 08-08-2014 Documentation of current medications Marcel Landsi Work Phone: Start: 08-05-2014 End: 08-05-2014 Procedure Note: See Note; NOTES: [facility] Pulmonary Services/Neurology [address] [place] [address] Pulmonary Function Test (Comp) MR#: [id number] Acct: [id number] Name: SUGAR COONEY Rep #: [id number] : 1940 74 From: Marcel Landis MD Referring Dr: Marcel Landis MD Status: REG CLI Ordering Dr: Marcel Landis MD Date: 07/30/14 Location: [facility] Sex: F C Date: 07/30/14 Tech.: CARIE [...] Date Dictated: 07/31/14 1500 Date Transcribed: 08/01/1433 Fire Extinguisher Repairer: ROBLES Signed Marcel Landis Work Phone: Start: 08-01-2014 End: 08-01-2014 Procedure Note: See Note; NOTES: [facility] Pulmonary Services/Neurology [address] [place] [address] MR#: [id number] Acct: [id number] Name: SUGAR COONEY Rep #: [id number] : 1940 74 From: Marcel Landis MD Referring Dr: Marcel Landis MD Date: Ordering Dr: Sex: F C Location: [facility] PSN 6 Minute Walk Test - 6 Minute Walk Test 6 Minute Walk Test: 6 Minute Walk Test PSN 6 Minute Walk Test Start: 08/01/14 11:26 Freq: Status: Active Document 08/01/14 11:26 FR (Rec: 08/01/14 11:29 FR [id number]) 6 Minute Walk Test Date Performed 08/01/14 [...] Date Dictated: 08/01/14 1559 Date Transcribed: 08/01/141558 Fire Extinguisher Repairer: Marcel Landis Signed José Miguel Bryson MD Work Phone: Start: 05-07-2014 End: 05-08-2014 Documentation of current medications Marcel Landis Work Phone: Start: 05-07-2014 End: 05-08-2014 Documentation of current medications Marcel Landis Work Phone: Start: 03-15-2014 End: 03-15-2014 Procedure Note: See Note; NOTES: [facility] Services [address] [place] [address] STRESS TEST REPORT 03/15/14 1433 MR#: [id number] Acct: [id number] Name: SUGAR COONEY Rep #: [id number] : 1940 74 From: Vaibhav North MD [...] noted. 4. No clinical angina noted. 03/15/14 9708 <Electronically signed by Vaibhav North MD> Date Vaibhav North MD CC: Vaibhav North MD; Catherine Magana DO Date Dictated: 03/15/14 1433 Date Transcribed: 03/15/14 1610 Fire Extinguisher Repairer: ROBLES Signed José Miguel Bryson MD Work Phone: Start: 03-14-2014 End: 03-15-2014 Procedure Note: See Note; NOTES: [facility] Imaging Services [address] [place] [address] CAT Scan Report MR#: [id number] Acct: [id number] Name: SUGAR COONEY Rep #: [id number] : 1940 F 74 From: Patricio Espana MD PCP: Catherine Magana DO Status: REG CLI Study: Chest without Contrast Date of Exam: 03/14/14 Exam# [id number] Ordering Dr: Catherine Magana DO STUDY: CT [...] MD at 8:28 EST , Service support [phone], CC: Catherine Magana DO Fire Extinguisher Repairer: Ana Magana DO Work Phone: Start: 03-12-2014 End: 03-12-2014 Procedure Note: See Note; NOTES: [facility] Imaging Services [address] [place] [address] Ultrasound Report MR#: [id number] Acct: [id number] Name: SUGAR COONEY Rep #: [id number] : 1940 F 74 From: Raul Brandt MD PCP: Catherine Magana DO Status: REG CLI Study: Gallbladder Date of Exam: 03/12/14 Exam# [id number] Ordering Dr: Catherine Magana DO STUDY: ABDOMINAL [...] Raul Brandt MD at 10:38 EST Tel [phone], Service support [phone], CC: Catherine Magana DO Fire Extinguisher Repairer: Signed Catherine Magana DO Work Phone: Start: 02-27-2014 End: 02-27-2014 Procedure Note: See Note; NOTES: [facility] [address] [place] [address] Echo Complete 02/27/14 1050 MR#: [id number] Acct: [id number] Name: SUGAR COONEY Rep #: [id number] : 1940 74 From: Jim Calvin MD Attending Dr: Catherine Magana DO Status: REG CLI Ordering Dr: Catherine Magana DO Date: 02/27/14 Location: [facility] Sex: F C Admitted: [...] Dictated: 02/27/14 1050 Date Transcribed: 02/27/14 1159 Fire Extinguisher Repairer: Signed José Miguel Bryson MD Work Phone: Start: 02-25-2014 End: 02-25-2014 Procedure Note: See Note; NOTES: [facility] Imaging Services [address] [place] [address] Radiology Report MR#: [id number] Acct: [id number] Name: SUGAR COONEY Rep #: [id number] : 1940 F 74 From: Patricio Espana MD PCP: Catherine Magana DO Status: REG CLI Study: Chest PA and Lateral Date of Exam: 02/25/14 Exam# [id number] Ordering Dr: Catherine Magana DO STUDY: X-RAY [...] MD at 10:41 EST , Service support [phone], RAD/Chest PA and Lateral IMPRESSION: Chronic interstitial changes, no acute findings Electronically Signed: Kelvin Espana MD at 10:41 EST , Service support [phone], CC: Catherine Magana DO Fire Extinguisher Repairer: Signed Catherine Magana DO Work Phone: Start: 02-25-2014 End: 02-25-2014 Spmtry w/vc expiratory darrel w/wo mxml vol vntj _ Catherine Magana DO Work Phone: Start: 07-23-2013 End: 07-23-2013 Procedure Note: See Note; NOTES: [facility] Imaging Services [address] [place] [address] Breast Imaging Report MR#: [id number] Acct: [id number] Name: SUGAR COONEY Rep #: [id number] : 1940 F 73 From: Raul Brandt MD PCP: Catherine Magana DO Status: REG CLI Exam# [id number] Ordering Dr: Catherine Magana DO MAMMOGRAPHY - [...] Raul Brandt MD at 10:04 EDT Tel [phone], Service support [phone], CC: Catherine Magana DO Fire Extinguisher Repairer: Signed Catherine Magana DO Work Phone: Start: 02-06-2013 End: 02-07-2013 Procedure Note: See Note; NOTES: [facility] Imaging Services [address] [place] [address] Radiology Report MR#: [id number] Acct: [id number] Name: SUGAR COONEY Rep #: [id number] : 1940 F 73 From: Patricio Collins MD PCP: Catherine Magana DO Status: REG CLI Exam# [id number] Ordering Dr: Catherine Magana DO STUDY: X-RAY [...] referring physician directly. Professional Interpretation Provided By: Fluther, Phone , These documents contain legally protected [...] of these documents. CC: Catherine Magana DO Fire Extinguisher Repairer: Signed Catherine Magana DO Work Phone: Start: 01-01-2013 End: 01-03-2013 Procedure Note: See Note; NOTES: [facility] Imaging Services [address] [place] [address] Radiology Report MR#: [id number] Acct: [id number] Name: SUGAR COONEY Rep #: [id number] : 1940 F 72 From: Colton Her PCP: Catherine Magana DO Status: REG CLI Study: Knee 4 or More Views Date of Exam: 01/01/13 Exam# [id number] Ordering Dr: Catherine Magana DO STUDY: X-RAY [...] January 01, 2013 at 8:44:23 PM EDT [phone] Electronically Signed BP/BP If you are the referring physician and would like to consult with the radiologist who provided this interpretation, please contact Colton Her M.D. at [phone]. If this radiologist is unavailable, you will be directed to another radiologist to assist. If you are a patient with a question regarding this report, please contact your referring physician directly. Professional Interpretation Provided By: Fluther, Phone , These documents contain legally protected [...] of these documents. CC: Catherine Magana DO Fire Extinguisher Repairer: Signed Catherine Magana DO Work Phone: Decompression of med lucas nerve Gail Villanueva RN History of cholecystectomy S/P cholecystectomy Krystyna Puga PA-C Plan of Treatment Date Care Activity Detail Author Start: 10-11-2025 DIABETES SCREEN DIABETES SCREEN [facility] Start: 10-11-2025 Diabetes Screening Diabetes Screenin g [facility] Start: 04-12-2025 DIABETES SCREEN DIABETES SCREEN [facility] Start: 09-14-2024 DIABETES SCREEN DIABETES SCREEN [facility] Start: 06-04-2024 Anes intraperitoneal upper abdomen w/laps nos ANES IPER UPR ABD NOS [facility] Start: 06-04-2024 Laps surg cholecyste ctomy w/cholangiography LAPARO CHOLECYSTECTOMY/GRAPH [facility] Start: 06-04-2024 Patient discharge [facility] Start: 04-09-2024 DIABETES SCREEN DIABETES SCREEN [facility] Start: 11-27-2023 Covid-19 Vaccine () Covid-19 Vaccine () [facility] Start: 11-27-2023 Influenza vaccination Influenz a Vaccine (#1) [facility] Start: 04-21-2023 Screening for osteoporosis Bone Density Screening [facility] Start: 04-19-2023 Urine microalbumin profile DTAP,TDAP,TD (2 - Td or Tdap) [facility] Comment on above: Postponed from 12/14 (Insurance Coverage) Start: 03-31-2023 Dual energy X-ray absorptiometry Dexa Bone Density Study [facility] Start: 03-28-2023 Advance Directive Discussion Advance Directive Discussion [facility] Start: 11-26-2022 Influenza vaccination INFLUENZA (#1) [facility] Start: 10-25-2022 Lipid panel Comprehens tonya Internal [...] Elevated blood sugar Expected: 10/08/2022, Expires: 12/08/2022 [facility] Work Phone: Comment on above: Expected: 10/08/2022 , Expires: 12/08/2022 Start: 09-09-2022 Catheterization of vein [facility] Start: 09-09-2022 Following clinical pathway protocol [facility] Start: 09-09-2022 Patient discharge [facility] Start: 09-09-2022 Procedure discontinued [facility] Start: 09-09-2022 Taking patient vital signs [facility] Start: 09-09-2022 Vital signs measurements [facility] Start: 09-09-2022 [facility] Start: 09-09-2022 Medication education [facility] Start: 04-17-2022 Urine microalbumin profile DTAP,TDAP,TD (2 - Td or Tdap) [facility] Comment on above: Postponed from 12/14 (Insurance Coverage) Start: 04-11-2022 COVID-19 VACCINE (6 - Pfizer series) COVID-19 VACCINE (6 - Pfizer series) [facility] Start: 03-05-2022 End: 05-05-2022 CBC W Auto Differential panel - Blood CBC + DIFF Lab Routine Medication management Expected: 03/05/2022, Expires: 05/05/2022 [facility] Work Phone: Comment on above: Expected: 03/05/2022 , Expires: 05/05/2022 Start: 03-05-2022 End: 05-05-2022 Cobalamin (Vitamin B12) [Mass/volume] in Serum or Plasma VITAMIN B12 BLOOD Lab Routine GERD without esophagitis Medication management Expected: 03/05/2022, Expires: 05/05/2022 [facility] Work Phone: Comment on above: Expected: 03/05/2022 , Expires: 05/05/2022 Start: 03-05-2022 End: 05-05-2022 Comprehensive metabolic 2000 panel - Serum or Plasma COMP METABOLIC PANEL Lab Routine GERD without esophagitis Edema, unspecified type Medication management Expected: 03/05/2022, Expires: 05/05/2022 [facility] Work Phone: Comment on above: Expected: 03/05/2022 , Expires: 05/05/2022 Start: 03-05-2022 End: 05-05-2022 Hemoglobin A1c in Blood HGB A1C Lab Routine Elevated blood sugar Expected: 03/05/2022, Expires: 05/05/2022 [facility] Work Phone: Comment on above: Expected: 03/05/2022 , Expires: 05/05/2022 Start: 03-05-2022 End: 05-05-2022 Magnesium [Mass/volume] in Serum or Plasma MAGNESIUM BLD Lab Routine GERD without esophagitis Medication management Expected: 03/05/2022, Expires: 05/05/2022 [facility] Work Phone: Comment on above: Expected: 03/05/2022 , Expires: 05/05/2022 Start: 02-25-2022 Catheterization of vein [facility] Work Phone: Start: 02-25-2022 Following clinical pathway protocol [facility] Work Phone: Start: 02-25-2022 Patient discharge [facility] Work Phone: Start: 02-25-2022 Procedure discontinued [facility] Work Phone: Start: 02-25-2022 Taking patient vital signs [facility] Work Phone: Start: 02-25-2022 Vital signs measurements [facility] Work Phone: Start: 02-25-2022 [facility] Work Phone: Start: 02-25-2022 Medication education [facility] Work Phone: Start: 11-26-2021 Influenza vaccination INFLUENZA (#1) [facility] Start: 10-08-2021 Adult depression screening assessment DEPRESSION SCREENING [facility] Start: 03-28-2021 ADVANCE DIRECTIVE DISCUSSION ADVANCE DIRECTIVE DISCUSSION [facility] Start: 03-28-2021 DEPRESSION ASSESSMENT DEPRESSION ASS ESSMENT [facility] Start: 12-14-2020 Urine microalbumin profile DTaP,Tdap,Td Vaccine (2 - Td or Tdap) [facility] Start: 02-09-2017 End: 02-09-2017 Appointment Appointment [facility] Work Phone: Start: 08-04-2016 End: 08-04-2016 Appointment Appointment [facility] Work Phone: Start: 07-12-2016 End: 07-30-2016 Pulmonary Function Test - complete Pulmonary Function Test - complete [facility] Work Phone: Start: 07-12-2016 End: 07-30-2016 Pulmonary Function Test - complete Pulmonary Function Test - complete [facility] Work Phone: Start: 04-13-2016 Procedure Education Com [...] 1 year Follow Up Appt 1 year [facility] Work Phone: Start: 08-07-2015 End: 07-30-2016 Follow Up Appt 1 year Follow Up Appt 1 year [facility] Work Phone: Start: 07-27-2015 End: 08-07-2014 Pulmonary Function Test - complete Pulmonary Function Test - complete [facility] Work Phone: Start: 07-27-2015 End: 08-07-2014 Pulmonary Function Test - complete Pulmonary Function Test - complete [facility] Work Phone: Start: 06-11-2015 Procedure Education Com [...] 1 year Follow Up Appt 1 year [facility] Work Phone: Start: 08-07-2014 End: 08-07-2014 Follow Up Appt 1 year Follow Up Appt 1 year [facility] Work Phone: Start: 05-07-2014 End: 05-07-2014 Follow Up Appt 3 months Follow Up Appt 3 months [facility] Work Phone: Start: 05-07-2014 End: 05-07-2014 Pulmonary Fuction Test - complete Pulmonary Fuction Test - complete [facility] Work Phone: Start: 05-07-2014 End: 05-07-2014 Pulmonary stress test/simple Pulmonary stress testing; simple (eg, 6-minute walk) [facility] Work Phone: Start: 05-07-2014 End: 05-07-2014 Follow Up Appt 3 months Follow Up Appt 3 months [facility] Work Phone: Start: 05-07-2014 End: 05-07-2014 Pulmonary Fuction Test - complete Pulmonary Fuction Test - complete [facility] Work Phone: Start: 05-07-2014 End: 05-07-2014 Pulmonary stress test/simple Pulmonary stress testing; simple (eg, 6-minute walk) [facility] Work Phone: Start: 04-01-2014 Blood count complete [...] Work Phone: Start: 11-09-2011 Patient Education [facility] Work [...] Work Phone: Start: 10-12-2011 Patient Education [facility] Work [...] Phone: Start: 02-02-1960 Anxiety Screening Anxiety Screening [facility] Start: 02-02-1960 Depression Screening Depression Scre [facility] Patient Education [facility] Work Phone: Patient referral [facility] Work Phone: End: 11-21-2023 XR DIGIT GENERAL 3V FRONTAL/LAT/OBL RIGHT XR DIGIT GENERAL 3V FRONTAL/LAT/OBL RIGHT Radiology STAT Thumb pain, right 1 Occurrences starting 10/22/2022 until 11/21/2023 [facility] Work Phone: Comment on above: 1 Occurrences starti ng 10/22/2022 until 11/21/2023 [facility] [...] Immunizations Immunization Date Immunization Notes Care Provider [facility] 10-02-2023 COVID-Pfizer (30 MCG/0.3 ML) Catherine Fast DO Work Phone: [facility] Work Phone: 12-02-2022 influenza virus vaccine, unspecified formulation [facility] Work Phone: [facility] 12-10-2021 COVID-19 booster vaccine, age 12+ yr, bivalent (PFIZER-BIONTECH) Virgilio Rojas MD Work Phone: [facility] 12-29-2020 COVID-19 vaccine, ag e 12+ yr (PFIZER-BIONTECH - PURPLE TOP) Maria Dolores Garcia PA-C Work Phone: [facility] 11-27-2020 influenza, high dose seasonal, preservative-free Maria Dolores Garcia PA-C Work Phone: [facility] 06-12-2020 COVID-19 vaccine, ag e 12+ yr (PFIZER-BIONTECH - PURPLE TOP) Maria Dolores Garcia PA-C Work Phone: [facility] 05-22-2020 COVID-19 vaccine, ag e 12+ yr (PFIZER-BIONTECH - PURPLE TOP) Maria Dolores Garcia PA-C Work Phone: [facility] 10-16-2019 zoster vaccine recombinant Maria Dolores Garcia PA-C Work Phone: [facility] 07-13-2019 zoster vaccine recombinant Maria Dolores Jose PA-C Work Phone: [facility] 01-13-2018 influenza, high dose seasonal, preservative-free Maria Dolores Garcia PA-C Work Phone: [facility] 12-06-2017 pneumococcal polysaccharide vaccine, 23 valent Maria Dolores Garcia PA-C Work Phone: [facility] 12-16-2015 influenza, seasonal, injectable Maria Dolores Garcia PA-C Work Phone: [facility] 12-11-2014 influenza, seasonal, injectable Maria Dolores Garcia PA-C Work Phone: [facility] 03-06-2014 pneumococcal conjuga te vaccine, 13 valent Maria Dolores Garcia PA-C Work Phone: [facility] 01-01-2013 influenza, seasonal, injectable Maria Dolores Garcia PA-C Work Phone: [facility] 01-21-2012 influenza, seasonal, injectable Maria Dolores Garcia PA-C Work Phone: [facility] 07-06-2011 pneumococcal polysaccharide vaccine, 23 valent Maria Dolores Garcia PA-C Work Phone: [facility] 01-27-2011 influenza, seasonal, injectable Maria Dolores Garcia PA-C Work Phone: [facility] 12-14-2010 tetanus toxoid, redu amber diphtheria toxoid, and acellular pertussis vaccine, adsorbed Maria Dolores Garcia PA-C Work Phone: [facility] 03-18-2010 influenza, seasonal, injectable Maria Dolores Garcia PA-C Work Phone: [facility] 12-30-2008 influenza, seasonal, injectable Maria Dolores Garcia PA-C Work Phone: [facility] 01-29-2008 influenza, seasonal, injectable Maria Dolores Garcia PA-C Work Phone: [facility] 01-30-2007 influenza, seasonal, injectable Maria Dolores Garcia PA-C Work Phone: [facility] 05-24-2006 pneumococcal polysaccharide vaccine, 23 valent Maria Dolores Garcia PA-C Work Phone: [facility] 03-24-2006 influenza, seasonal, injectable Maria Dolores Garcia PA-C Work Phone: [facility] 03-18-2006 influenza, seasonal, injectable Maria Dolores Garcia PA-C Work Phone: [facility] Payers Date Payer Category Payer Self-pay [id number] 2014 Medicare [employer] [place] [id number] 2014-Present [phone] [address] [place] [address] O [id number] 2014 Medicare [employer] [place] [id number] 2014-Present [phone] [address] [place] [id number] O [id number] 2013 Medicare [id number] Unknown Unknown [id number] Unknown [id number] Unknown [id number] Unknown [id number] Unknown [id number] Unknown [id number] Unknown [id number] Unknown [id number] Unknown [id number] Unknown [id number] Unknown [id number] Unknown [id number] Unknown [id number] Unknown [id number] Unknown [id number] Social History Date Type Detail Facility Start: 06-14-2021 End: 09-03-2022 Tobacco smoking status OKIS Unknown if ever smoked [facility] Start: 07-17-2018 Non-smoker [facility] Start: 1940 Sex Assigned At Female C [facility] Start: 12-06-2017 End: 05-24-2024 Tobacco smoking status NHIS Never smoked tobacco [facility] Start: 06-22-2021 End: 10-22-2022 Alcohol intake Current drinker of alcohol (finding) [facility] Start: 04-14-2021 End: 04-15-2022 History SDOH Alcohol Frequency 1 [facility] Start: 04-14-2021 History SDOH Alcohol Std Drinks 98 [facility] Start: 07-09-2011 History SDOH Alcohol Comment socially [facility] Start: 04-14-2021 End: 04-15-2022 History SDOH Social Connections Phone 4 [facility] Start: 04-14-2021 End: 04-15-2022 History SDOH Social Connections Get Together 2 [facility] Start: 04-14-2021 End: 04-15-2022 History SDOH Social Connections Caodaism 3 [facility] Start: 04-14-2021 End: 04-15-2022 History SDOH Financial 5 [facility] Start: 03-15-2020 Education 12 [facility] Start: 06-12-2021 End: 09-16-2021 Exposure to SARS-CoV-2 (event) Not sure [facility] Start: 12-06-2017 End: 04-19-2022 Tobacco use and exposure Smokeless tobacco non-user [facility] Start: 04-15-2022 End: 10-18-2022 History of Social function [facility] Start: 04-15-2022 End: 10-18-2022 Social connection and isolation panel [facility] Do you belong to any clubs or organizations such as hindu groups, unions, fraternal or athletic groups, or school groups? No [facility] Are you now , , , , never or living with a partner? [facility] How often to you hav e a drink containing alcohol? Monthly or less [facility] How many standard drinks containing alcohol do you have on a typical day? 1 or 2 [facility] How often do you hav e 6 or more drinks on 1 occasion? Never [facility] How hard is it for y ou to pay for the very basics like food, housing, medical care, and heating Not hard at all [facility] Do you feel stress - tense, restless, nervous, or anxious, or unable to sleep at night because your mind is troubled all the time - these days [OSQ] Not at all [facility] (I/We) worried wheth er (my/our) food would run out before (I/we) got money to buy more. Never true [facility] Start: 12-07-2018 Gender identity Identifies as female gender (finding) [facility] Does not exercise. [facility] Work Phone: Never smoker. [facility] Work Phone: Start: 06-04-2024 Sex Female (finding) [facility] NEGATED: Highlighted row [facility] NEGATED: Highlighted row Not [facility] Medical Equipment Procedure Code Equipment Code Equipment Original Text Equipment Identifier Dates Robot-assisted laparoscopic cholecystectomy without cholangiography Ligation clip, synthetic polymer, non-bioabsorbable [id number] FDA Start: 06-04-2024 Extraction, cataract, with IOL [...] Facility 06-04-2024 Functional status Ambulates;Bathroom Priv ilege [facility] Work Phone: Mental Status Date Assessment Result Facility 06-04-2024 Cognitive function Voice/Name [facility] Work Phone: 09-09-2022 Cognitive function Awake;Alert;Appropriat e [facility] Work Phone: 02-25-2022 Cognitive function Voice/Name [facility] Work Phone: 06-14-2021 Cognitive function Level Of Cons ciousness Awake;Alert;Appropriate;Follow s Commands [facility] Work Phone: Clinical Notes 12-31-2015 to 11-19-2024 Note Date & Type Note Facility 11-19-2024 Nuclear medicine Diagnostic study note [facility] Imaging Services [address], [place] [address] Gastric Emptying Study MR#: [id number] Acct: [id number] Name: SUGAR COONEY Rep #: [id number] : 1940 F 84 From: Baljit Brandt MD PCP: Dr. Catherine Magana DO Status: REG CLI Study:Gastric Emptying Study Date of Exam: 11/19/24 Exam# [id number] Ordering Dr: Rae Matos DO PROCEDURE: GASTRIC EMPTYING STUDY 11/19/2024 REASON FOR EXAM: NAUSEA TECHNIQUE: The patient ingested a standard meal of oatmeal, radiopharmaceutical and water. There was no vomiting postprandially. Anterior and posterior planar images of the upper abdomen were obtained for 1 minute immediately following the meal at 1h, 2h and 4h if more than 10% of the activity persisted within the stomach. Regions of interest were drawn, and a geometric mean was used to calculate a swfu-spiyjvlr-nudgf. RADIOPHARMACEUTICAL: Sulfur colloid DOSE 1.1mCi FINDINGS: Percent activity remaining in stomach: 1 hour 16 % (normal 37-90%) NM/Gastric Emptying Study IMPRESSION: Normal gastric emptying. Reading Location: [id number] CC: Dr. Catherine Magana DO; Daljit Friend, ~ Fire Extinguisher Repairer: Signed [facility] 10-30-2024 Evaluation note Diagnosis Onset Date Resolution Nausea acute October 30 10:10am Vomiting acute October 30 10:10am [facility] Work Phone: 1(894) 159-560906-18-2025 Radiology Diagnostic study note [facility] Imaging Services [address], [place] [address] Abdomen/Pelvis WITH Contrast MR#: [id number] Acct: [id number] Name: SUGAR COONEY Rep #: [id number] : 1940 F 84 From: Denise Modi MD PCP: Dr. Catherine Magana DO Status: REG CLI Study:Abdomen/Pelvis WITH Contrast Date of Ex am: 09/11/24 Exam# [id number] Ordering Dr: Kimberli Magana ra, DO PROCEDURE: [...] abnormalities, collections or free air. [facility] CC: Dr. Catherine Magana, DO ~ Fire Extinguisher Repairer: Signed [facility]03-10-2025 Consult note [facility] Medical Records Department [address] [place] [address] Pre-Anesthesia Evaluation 06/04/24 0904 MR#: [id number] Acct: [id number] Name: SUAGR COONEY Rep #:[id number] : 1940 84 From: Karson Perez MD PCP: Dr. 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 Tobacco Use History Tobacco Use History - loop machine operator: Tobacco Use History - loop machine operator Tobacco Use Smoking Status Never smoker 05/24/24 11:22 Hx Tobacco Use No 05/24/24 11:22 Years Smoking Packs Smoked per Day Smoking Cessation Date was within the last 15 years Hx Smoking Cessation Date Hx Smoking Cessation Counseling Hematologic Medial History Hematologic Hx - loop machine operator: Hematologic Medical Hx - clinical documentation manager Hx of Blood Transfusion No 05/24/24 11:22 [...] confused, unrespo /Reproduction History /Reproductive History - loop machine operator: /Reproductive Hx- loop machine operator Hx Now No 05/24/24 11:22 Gestational Age (in weeks): EDC: Hx Hx Para Hx Section SAB No 05/24/24 11:22 Active Medications Active Medications: Current Medications Generic Name Dose Route Start Last Admin Trade Name Freq PRN Reason Stop Dose Admin Indocyanine Green 3.75 mg/ N/A 1.5 mls @ 999 mls/hr 06/04/24 09:50 IV 06/04/24 09:51 PREOP ONE COUNT INCLUDES THE [facility] Medical History Wears hearing aid Arthritis High cholesterol Shortness of breath on exertion History of Holter monitoring History of echocardiogram Hypertension Nausea Cholelithiasis Wears glasses Post-menopausal Bladder disease Gastric reflux Non-smoker History of edema Cardiology follow-up encounter History of stress test Osteoporosis 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 06/04/24903 > Date _ Karson Perez MD Cosigner Signature: Date CC: ~ Signed [facility]03-10-2025 Consult note [facility] Medical Records Department [address] [facility] [address] Anesthesia Postop Eval II 06/04/24 1225 MR#: [id number] Acct: [id number] Name: SUGAR COONEY Rep #:[id number] : 1940 84 From: Karson Perez MD PCP: Dr. Catherine Magana, DO Status:REG [facility] Y Race: C Location: [place] [address] Anesthesia Postop Eval I Sum Postop Eval Completion status Anesthesia document: Postop Eval 1 completed: Yes Anesthesia Postop Eval I Summary Anesthesia Postop Eval I Summary: Anesthesia Postop Eval I: Assessment Summary Airway patent Yes 06/04/24 12:13 GARMENT MANUFACTURING SUPERVISOR.JSWI Spontaneous unlabored Yes 06/04/24 12:13 GARMENT MANUFACTURING SUPERVISOR.JSWI respirations Mental status Awake 06/04/24 12:13 GARMENT MANUFACTURING SUPERVISOR.JSWI nausea No 06/04/24 12:13 GARMENT MANUFACTURING SUPERVISOR.JSWI Vomiting No 06/04/24 12:13 GARMENT MANUFACTURING SUPERVISOR.JSWI Anesthesia Postop Eval I: Fluid Summary Crystalloid volume administer 800 06/04/24 12:13 GARMENT MANUFACTURING SUPERVISOR.JSWI (ml) Colloids volume administered ( ml) Blood Product volume administered (ml) Total IV fluid infused 800 06/04/24 12:13 GARMENT MANUFACTURING SUPERVISOR.JSWI Anesthesia Postop Eval I: Summary Notes Anesthesia Complication No 06/04/24 12:13 GARMENT MANUFACTURING SUPERVISOR.JSWI Anesthesia Complication Comment: Post-operative progress note Anesthesia: Postop Eval II Evaluation Mental status: Awake Pain Level: 0 nausea: No Vomiting: No 06/04/24 1225 > Date _ Karson Izquierdo Signature: Date CC: ~ Signed [facility]03-10-2025 Consult note Author Karson Perez [facility] Note Date/Time June 04, 2024 3:3 3pm [facility] Medical Records Department [address] [place] [address] Anesthesia Postop Eval II 06/04/24 1225 MR#: [id number] Acct: [id number] Name: SUGAR COONEY Rep #:[id number] : 1940 84 From: Karson Perez MD PCP: Dr. Catherine Magana, DO Status:REG SDC Y Race: C Location: [facility]04[facility]28 Anesthesia Postop Eval I Sum Postop Eval Completion status Anesthesia document: Postop Eval 1 completed: Yes Anesthesia Postop Eval I Summary Anesthesia Postop Eval I Summary: Anesthesia Postop Eval I: Assessment Summary Airway patent Yes 06/04/24 12:13 GARMENT MANUFACTURING SUPERVISOR.JSWI Spontaneous unlabored Yes 06/04/24 12:13 GARMENT MANUFACTURING SUPERVISOR.JSWI respirations Mental status Awake 06/04/24 12:13 GARMENT MANUFACTURING SUPERVISOR.JSWI nausea No 06/04/24 12:13 GARMENT MANUFACTURING SUPERVISOR.JSWI Vomiting No 06/04/24 12:13 GARMENT MANUFACTURING SUPERVISOR.JSWI Anesthesia Postop Eval I: Fluid Summary Crystalloid volume administer 800 06/04/24 12:13 GARMENT MANUFACTURING SUPERVISOR.JSWI (ml) Colloids volume administered ( ml) Blood Product volume administered (ml) Total IV fluid infused 800 06/04/24 12:13 GARMENT MANUFACTURING SUPERVISOR.JSWI Anesthesia Postop Eval I: Summary Notes Anesthesia Complication No 06/04/24 12:13 GARMENT MANUFACTURING SUPERVISOR.JSWI Anesthesia Complication Comment: Post-operative progress note Anesthesia: Postop Eval II Evaluation Mental status: Awake Pain Level: 0 nausea: No Vomiting: No 06/04/24 1225 <Electronically signed by Karson Perez MD > Date _ Karson Weeman MD Cosigner Signature: Date CC: ~ Signed [facility] Work Phone: 1(651) 481-681803-10-2025 Discharge summary Author Roberto Parker [facility] Note Date/Time June 04, 2024 12: 23pm [facility] Medical Records Department [address] [place] [address] Instructions for Home/Discharge Instructions 06/04/24 1219 MR#: [id number] Acct: [id number] Name: SUGAR COONEY Rep #:[id number] : 1940 84 From: Roberto Parker MD PCP: Dr. Catherine Magana, DO Status:REG [facility] Discharge Instructions Diet Discharge Diet: Light diet [...] Primary Care Provider: Catherine Magana Print Language: Tanzanian Discharge Orders/Prescriptions Prescriptions: New oxycodone-acetaminophen [Percocet] 5-325 [...] Parker MD>Roberto Parker MD CC: Dr. Catherine Magana DO ~ Signed [facility] Work Phone: 1([phone]) 683-280403-10-2025 Consult note Author Marla Cancino [facility] Note Date/Time June 04, 2024 12: 13pm [facility] Medical Records Department [address] [place] [address] Anesthesia Postop Eval I 06/04/241211 MR#: [id number] Acct: [id number] Name: SUGAR COONEY Rep #:[id number] : 1940 84 From: Marla Lou PCP: Dr. Catherine Magana DO Status:REG SDC Y Race: C Location: [place] [address] Anesthesia: Postop Eval I Current Vital Signs [...] Postop Eval 1 completed: Yes 06/04/24 1213 <Electronically signed by Marla Broussard RNA> Date _ Marla Cancino GARMENT MANUFACTURING SUPERVISOR Cosigner Signature: Date CC: ~ Signed [facility] Work Phone: 1(518) 102-164603-10-2025 Procedure note [facility] Medical Records Department [address] [place] [address] Operative Report 06/04/24 1223 MR#: [id number] Acct: [id number] Name: SUGAR COONEY Rep #:[id number] : 1940 84 From: Roberto Parker MD PCP: Dr. Catherine Magana, DO Status:REG [facility] Location: [place] [address] Problems Associated Problem List Diagnoses (1) Cholelithiasis: Procedures Digestive 40xxx-49xxx: 29028 Laparo cholecystectomy/graph Operative Report (Standard) Operative Information Date of Procedure: 06/04/24 Pre-Operative Diagnosis: Symptomatic cholelithiasis Post-Operative Diagnosis: Symptomatic cholelithiasis. Surgery/Procedure Performed: Robotic cholecystectomy with ICG cholangiography cook enchilada: Yes Binding Printer: Teo Kasper Tasks completed by assistant produce manager: Closing and Trocar Additional speech assistant?: No Type of Anesthesia: General and [...] throughout the course of the procedure to blaster helper in structure identification. Once both structures [...] taken to recovery in good condition. An BIOLOGICAL ENGINEER was utilized as a physical laboratory assistant. His role included assistance with docking [...] Magana DO; Dr. Roberto Parker MD~ Signed [facility]03-10-2025 Discharge summary [facility] Medical Records Department [address] [facility] [place] [address] Instructions for Home/Discharge Instructions 06/04/24 1219 MR#: [id number] Acct: [id number] Name: SUGAR COONEY Rep #:[id number] : 1940 84 From: Roberto Parker MD PCP: Dr. Catherine Magana DO Status:REG [facility] Discharge Instructions Diet Discharge Diet: Light diet [...] Primary Care Provider: Catherine Magana Print Language: Tanzanian Discharge Orders/Prescriptions Prescriptions: New oxycodone-acetaminophen [Percocet] 5-325 [...] CC: Dr. Catherine Magana DO ~ Signed [facility]03-10-2025 Consult note [facility] Medical Records Department [address] [place] [address] Anesthesia Postop Eval I 06/04/24 1212 MR#: [id number] Acct: [id number] Name: SUGAR COONEY Rep #:[id number] : 1940 84 From: Marla Lou PCP: Dr. Catherine Magana DO Status:REG SDC Y Race: C Location: [place] [address] Anesthesia: Postop Eval I Current Vital Signs [...] Marla Mercedesigner Signature: Date CC: ~ Signed [facility]03-10-2025 History and physical note Author Roberto Parker [facility] Note Date/Time June 04, 2024 9:4 9am [facility] Medical Records Department [address] [place] [address] History & Physical Exam 06/04/24947 MR#: [id number] Acct: [id number] Name: SUGAR COONEY Rep #:[id number] : 1940 84 From: Roberto Parker MD PCP: Dr. Catherine Magana, DO Status:REG 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 Roberto Parker MD~ Signed [facility] Work Phone: 1([phone]) 481-777403-10-2025 Consult note Author Karson charley [facility] Note Date/Time June 04, 2024 3:3 3pm [facility] Medical Records Department [address] [place] [address] Pre-Anesthesia Evaluation 06/04/24 0904 MR#: [id number] Acct: [id number] Name: SUGAR COONEY Rep #:[id number] : 1940 84 From: Karson Perez MD PCP: Dr. Catherine Magana DO Status:REG SDC Y Race: C Location: [facility]02-[facility] ASA Classification* ASA Classification ASA Classification: 3 [...] WITH GRAMS Anesthesia History Anesthesia History - loop machine operator: Anesthesia History - loop machine operator Hx Hospitalization No 05/24/24 11:22 Any Problems [...] take am of surgery PONV PONV - loop machine operator: PONV - loop machine operator Female Yes 05/24/24 11:22 HX of Motion [...] 05/21/24 08:50 Respiratory Assessment Respiratory Assessment - loop machine operator: Respiratory Tract Infection Hx - loop machine operator Hx Respiratory Tract Infection No 05/24/24 11:22 STOP Sleep Apnea STOP Sleep Apnea - loop machine operator: STOP Sleep Apnea - loop machine operator Hx Hypertension Yes: MANY YRS AGO 05/24/24 [...] Tobacco Use History Tobacco Use History - loop machine operator: Tobacco Use History - loop machine operator Tobacco Use Smoking Status Never smoker 05/24/24 11:22 Hx Tobacco Use No 05/24/24 11:22 Years Smoking Packs Smoked per Day Smoking Cessation Date was within the last 15 years Hx Smoking Cessation Date Hx Smoking Cessation Counseling Hematologic Medial History Hematologic Hx - loop machine operator: Hematologic Medical Hx - clinical documentation manager Hx of Blood Transfusion No 05/24/24 11:22 [...] confused, unrespo /Reproduction History /Reproductive History - loop machine operator: /Reproductive Hx- loop machine operator Hx Now No 05/24/24 11:22 Gestational Age (in weeks): EDC: Hx Hx Para Hx Section SAB No 05/24/24 11:22 Active Medications Active Medications: Current Medications Generic Name Dose Route Start Last Admin Trade Name Freq PRN Reason Stop Dose Admin Indocyanine Green 3.75 mg/ N/A 1.5 mls @ 999 mls/hr 06/04/24 09:50 IV 06/04/24 09:51 PREOP ONE COUNT INCLUDES THE [facility] Medical History Wears hearing aid Arthritis High [...] MD Cosigner Signature: Date CC: ~ Signed [facility] Work Phone: 1([phone]) 271-441803-10-2025 Evaluation note* Diagnosis Onset Date Resolution Status Admit Date Cholelithiasis acute May 8:52am S/P cholecystectomy acute June 14, 2024 9:45am [facility] Work Phone: [phone]) [phone] History and physical note [facility] Medical Records Department [address] [place] [address] History & Physical Exam 06/04/2448 MR#: [id number] Acct: [id number] Name: SUGAR COONEY Rep #:[id number] : 1940 84 From: Roberto Parker MD PCP: Dr. 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 Surgery will begin shortly. 06/04/24 09 Cosigner Signature (if applicable): CC: Dr. Catherine Magana, DO; Dr. Roberto Parker MD~ Signed [facility]03-10-2025 [facility] Medical Records Department [address] [place] [address] History Physical Exam 06/04/24 0948 MR#: [id number] Acct: [id number] Name: SUGAR COONEY Rep #: [id number] : 1940 84 From: Roberto Parker MD PCP: Dr. 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 Surgery will begin shortly. 06/04/24 09 Cosigner Signature (if applicable): CC: Dr. Catherine Magana DO; Dr. Roberto Parker MD [facility] Evaluation note* Diagnosis Onset Date Resolution Status Admit Date Nausea acute May 21, 2024 8:35am Cholelithiasis acute May 8:52am S/P cholecystectomy acute June 14, 2024 9:45am [facility] Work Phone: 1([phone]) 167-441012-09-2024 Evaluation note* Diagnosis Onset Date Resolution Status Admit Date Nausea acute March 05, 2024 1:30pm Nausea acute May 21, 2024 8:35am Cholelithiasis acute May 8:52am [facility] Work Phone: [phone]) 191-457007-28-2023 NoteHNO ID: [id number] Author: Annalise Sanchez RT(R) Service: Radiology Author [...] BY: RT Daniel(R) October 22, 2022 8:03 [facility]07-28-2023 NoteHNO ID: [id number] Author: Farzana Larsen APRN.HEALTH INFORMATION ASSISTANT Service: ? Author Type: Nurse Practitioner Type: Progress Notes Filed: 10/22/2022 8:33 AM Note Text: This note was created using [employer] Solar[employer]. Subjective Sugar Cooney is a 82 year [...] history is provided by the patient. No foreign language interpreter was used. Hand Pain Pain location: right [...] use: Yes Comment: socially (more content not included)...[facility] 10-22-2022 History of Present illness Narrative* [...] 22, 2022 8:03 AM documented in [facility] History of Present illness Narrative* Farzana Larsen APRN.HEALTH INFORMATION ASSISTANT - 10/22/2022 7:20 AM EDT Images from the original note were not included. This note was created using [employer]. Subjective Sugar Cooney is a 82 year [...] history is provided by the patient. No foreign language interpreter was used. Hand Pain Pain location: right [...] with PCP if sx persist. Farzana Larsen APRN.HEALTH INFORMATION ASSISTANT documented in this encounterGrand [facility]07-24-2023 NoteHNO ID: [id number] Author: Maria Dolores Garcia PA-C Service: ? Author Type: Physician Emergency Doctor Type: Progress Notes Filed: 10/18/2022 2:20 PM [...] blood sugar 04/17/2021 GERD without esophagitis 09/09/2020 [place]'s disease 03/17/2020 Dr. Meeks, benign skin rash [...] Pulses: Normal. Health Ma (more content not included)...[facility]06-15-2023 Procedure [facility]03-24-2023 NoteHNO ID: [id number] Author: Virgilio Rojas MD Service: ? Author [...] blood sugar 04/17/2021 GERD without esophagitis 09/09/2020 [place]'s disease 03/17/2020 Dr. Meeks, benign skin rash [...] - did discuss st (more content not included)...[facility] 06-18-2022 History of Present illness Narrative* [...] blood sugar 04/17/2021 GERD without esophagitis 09/09/2020 [place]'s disease 03/17/2020 Dr. Meeks, benign skin rash [...] September Virgilio Rojas MD documented in this encounterGrand [facility]01-23-2023 NoteHNO ID: [id number] Author: Virgilio Rojas MD Service: ? Author [...] HX Left 07/24/2018 COLONOSCOP W/ OR W/O [facility] SPEC 08/16/2007 repeat 10 ys COLONOSCOP [...] file Gets together: Not on file Attends cheondoism service: Not on file Active member of [...] below Virgilio Rojas MD (more content not included)...[facility] 04-19-2022 Instructions* Patient Instructions* Virgilio Rojas MD - 04/19/2022 1:31 PM EST Please bring in copies of living will and durable power of assistant district attorney for health care. Please get labs and urine test done on or after 10/08/2022 prior to your next visit. documented in this encounterGrand [facility]01-23-2023 History of Present illness Narrative* Virgilio Rojas [...] HX Left 07/24/2018 COLONOSCOP W/ OR W/O [facility] SPEC 08/16/2007 repeat 10 ys COLONOSCOP W/ OR W/O [facility] SPEC 12/29/2017 Colonoscopy LIGATE FALLOPIAN TUBE [...] file Gets together: Not on file Attends cheondoism service: Not on file Active member of [...] blood sugar 04/17/2021 GERD without esophagitis 09/09/2020 [place]'s disease 03/17/2020 Dr. Meeks, benign skin rash [...] Lymph 1.00 - 4.00 k/uL 2.23 3.16 Barnes% % 7.0 6.5 Abs Barnes <0.87 k/uL 0.40 0.43 Eosin% % 2.3 [...] Cholesterol, Nonfasting <200 mg/dL Test sent to [facility]. Triglycerides, Nonfasting <150 mg/dL Test sent to [facility]. HDL Cholesterol, Nonfasting >39 mg/dL Test sent to [facility]. LDL Cholesterol, Nonfasting <100 mg/dL Test sent to [facility]. Non HDL Cholesterol, Nonfasting <130 mg/dL Test sent to [facility]. VLDL Cholesterol, Nonfasting <30 mg/dL Test sent to [facility]. Total Chol/HDL Ratio, Nonfasting <5.10 mg/dL Test sent to [facility]. LDL/HDL Ratio, Nonfasting <2.54 mg/dL Test sent to [facility]. Hemoglobin A1C 4.3 - 5.6 % 5.3 [...] which included preparing to see the patient, zaqi-ii-[id number] patient care, completing clinical documentation, performing a medically appropriate examination, counseling and educating the patient/family/caregiver and ordering medications, tests, or procedures. Virgilio Rojas MD documented in this encounterGrand [facility]10-21-2022 Miscellaneous Notes* Telephone Encounter - Virgilio Rojas [...] refill; 05/2021 * Telephone Encounter - Courtney Frederic - 01/15/2022 9:38 AM EDT Patient has [...] Courtney De La Garza documented in this encounterGrand Lake [facility]06-22-2022 History of Present illness Narrative* Virgilio Rojas [...] prior Virgilio Rojas MD documented in this encounter[facility] History of Present illness Narrative* Marilyn Rubi APRN.HEALTH INFORMATION ASSISTANT - 08/27/2021 8:38 AM EDT Images from [...] illness Marilyn Rubi APRN.CNP documented in this encounterGrand [facility]06-02-2022 Instructions* Patient Instructions* Marilyn Rubi APRN.CNP - [...] redness, drainage or pus). documented in this encounterGrand [facility]05-03-2022 Miscellaneous Notes* Telephone Encounter - Irina Hernandez Pss - 07/28/2021 9:31 AM EDT Pharmacy verified in [facility] Patient has been identified by name and [...] advise. Irina Hernandez Pss documented in this encounterGrand [facility]03-28-2022 History of Present illness Narrative* Maria Dolores Garcia PA-C - 06/22/2021 7:46 AM EDT Chief Complaint Patient presents with: ER F/U: [facility] elevated heart rate HPI Sugar Cooney is a 81 year old female who presents here today for ER Follow Up.. On 06/14 patient noticed that while at [facility] she started to feel like her heart [...] by 1 episode of vomiting on 06/19. Kathleen better 06/20. ER work up benign. EKG [...] of hemorrhage) Edema GERD without esophagitis 09/09/2020 [place] disease 03/17/2020 Dr. Meeks, benign skin rash [...] Maria Dolores Garcia PA-C documented in this encounterGrand [facility]10-05-2016 History of Past illness Narrative* Problem Noted Date Resolved Date Urinary complications 12/31/2015 documented as of this encounter (statuses as of 06/22/2021) [address]05-2016 History of Past illness Narrative* Problem Noted Date Resolved Date Urinary complications 12/31/2015 documented as of this encounter (statuses as of 07/28/2021) [address]05-2016 History of Past illness Narrative* Problem Noted Date Resolved Date Urinary complications 12/31/2015 documented as of this encounter (statuses as of 08/27/2021) [address]05-2016 History of Past illness Narrative* Problem Noted Date Resolved Date Urinary complications 12/31/2015 documented as of this encounter (statuses as of 09/17/2021) [address]05-2016 History of Past illness Narrative* Problem Noted Date Resolved Date Urinary complications 12/31/2015 documented as of this encounter (statuses as of 01/15/2022) [address]05-2016 History of Past illness Narrative* Problem Noted Date Resolved Date Urinary complications 12/31/2015 documented as of this encounter (statuses as of 04/20/2022) [address]05-2016 History of Past illness Narrative* Problem Noted Date Resolved Date Urinary complications 12/31/2015 documented as of this encounter (statuses as of 06/18/2022) [address]05[address]2016 History of Past illness Narrative* Problem Noted Date Diagnosed Date Resolved Date Urinary complications 2015 documented as of this encounter (statuses as of 10/22/2022) [facility] Dr. Mustafa [facility] September 09, 2022 7:54am Note Date/Time September 09, 2022 7:54 am [facility] Medical Records Department [address] [place] [address] Instructions for Home/Discharge Instructions 09/09/22 0754 MR#: [id number] Acct: [id number] Name: SUGAR COONEY Rep #:[id number] : 1940 82 From: Nathanael nichols DO PCP: Dr. Virgilio Rojas MD Status:REG [facility] Discharge Instructions Follow Up Care Test Results: [...] Rojas MD [Primary Care Provider] - Nathanael Mustafa DO [Med Staff - Active Staff] - Disposition Disposition (needs filled in before D/C Order can be placed): Home, Self Care 09/09/22 0754<Electronically signed by Nathanael Mustafa DO>Nathanael Mustafa DO CC: Dr. Virgilio Rojas MD ~ Signed [facility] Work Phone: Evaluation noteNo assessment information available [facility] Work Phone: Evaluation note* Diagnosis Palpitations- Primary Nonrheumatic aortic valve insufficiency Aortic valve disorders GERD without esophagitis Esophageal reflux documented in this encounter [facility] note* Diagnosis Allergic rash present on examination- Primary documented in this encounter [facility] note* Diagnosis Nonrheumatic aortic valve insufficiency- Primary Aortic valve disorders GERD without esophagitis Esophageal reflux Edema, unspecified type Herpes simplex infection of genitourinary system Medication management Encounter for long-term (current) use of other medications Elevated blood sugar Other abnormal glucose documented in this encounter [facility] note* Diagnosis Medicare annual wellness visit, subsequent- Primary [facility]ine general [facility] GERD without esophagitis Esophageal reflux Elevated blood sugar Other abnormal glucose Nonrheumatic aortic valve insufficiency Aortic valve disorders Edema, unspecified type Diverticulosis of colon Diverticulosis of colon (without mention of hemorrhage) Herpes simplex infection of genitourinary system Advance directive discussed with patient Other specified counseling documented in this encounter [facility] note* Diagnosis GERD without esophagitis- Primary Esophageal reflux documented in this encounter [facility] note* Diagnosis Swelling of right hand- Primary Thumb pain, right documented in this encounter [facility] note* Diagnosis Swelling of right hand Thumb pain, right [facility] Additional Instructions Follow preprinted instructions from your surgeons office Implant Used?: [facility] Work Phone: Hospital Discharge instructions Additional Instructions Follow preprinted instructions from your surgeons office[facility] Work Phone: Instructions* Name Dates Details Patient [...] RADEX FINGR MINIMUM 2 VIEWS Farzana Larsen APRN.HEALTH INFORMATION ASSISTANT [address] [place] [address] Xr Imaging Referral ID Status Reason Start Date Expiration Date V isits Requested Visits Authorized [id number] Closed Auto-Generate d Referral 10/22/2022 11/21/2023 1 1 * Diagnostic Procedure Only (Urgent) - Closed Specialty Diagnoses / Procedures Referred By Contac t Referred To Contact XR IMAGING Diagnoses Swelling of right hand Procedures XR HAND GENERAL 3V PA/LAT/OBL RIGHT RADEX HAND MINIMUM 3 VIEWS Farzana Larsen APRN.CNP [address] [place] [address] Xr Imaging Referral ID Status Reason Start Date Expiration Date V isits Requested Visits Authorized [id number] Closed Auto-Generate d Referral 10/22/2022 11/21/2023 1 1 [facility] for referral (narrative)* Diagnostic Procedure Only (Urgent) - Closed Specialty Diagnoses / Procedures Referred By Contac t Referred To Contact XR IMAGING Diagnoses Swelling of right hand Procedures XR HAND GENERAL 3V PA/LAT/OBL RIGHT RADEX HAND MINIMUM 3 VIEWS Farzana Larsen APRN.CNP [address] [place] [address] [place] [address] Referral ID Status Reason Start Date Expiration Date V isits Requested Visits Authorized [id number] Closed Auto-Generate d Referral 10/22/2022 11/21/2023 1 1 [facility] for referral (narrative)No reason for referral information availableWMercy Health [facility] Work Phone: Reason for visit Narrative* Diagnostic Procedure Only (Urgent) - Closed Specialty Diagnoses / Procedures Referred By Contac t Referred To Contact XR IMAGING Diagnoses Swelling of right hand Procedures XR HAND GENERAL 3V PA/LAT/OBL RIGHT RADEX HAND MINIMUM 3 VIEWS Farzana Larsen APRN.HEALTH INFORMATION ASSISTANT [address] [place] [address] [place] [address] Referral ID Status Reason Start Date Expiration Date V isits Requested Visits Authorized [id number] Closed Auto-Generate d Referral 10/22/2022 11/21/2023 1 1 [facility] Summary Purpose Family History No Family History Records FoundUnknown Family Member Name Dates Details Brother 2 Comments:DM Status:Active Father Comments:CVA Status:Active Mother Comments:-Lymphoma, In stabl e health Status:Active Advance Directives No Advanced Directives Records Found Advance Directive Response Recorded Date/ Time Living Will Yes June 14, 2021 2:50pm Power of Product Assembler Yes June 14 2:50pm Documents on File Type Date Recorded Patient 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 Supervisor Expl anation Advance Directive(s) 12/29/2017 8:25 AM Advance Directive Response Recorded Date/ Time Living Will Yes February 16, 022 1:32pm Power of Product Assembler No February 16, 2022 1:32pm Documents on File Type Date Recorded Patient Fur Dressing Supervisor Expl anation Advance Directive(s) 05/10/2022 9:16 AM Advance Directive Response Recorded Date/ Time Living Will Yes September 03, 2022 8 :44am Power of Product Assembler Yes September 03, 2022 8:44am Name of Medical Power of Product Assembler FAMILY September 03, 2022 8:44am Documents on File Type Date Recorded Patient Fur Dressing Supervisor Expl anation Advance Directive(s) 05/10/2022 9:16 AM Advance Directive Response Recorded Date/ Time Living Will Yes September 03, 2022 7 :44am Power of Product Assembler Yes September 03, 2022 7:44am Advance Directive Response Recorded Date/ Time Living Will Yes September 03, 2022 8 :44am Power of Product Assembler Yes September 03, 2022 8:44am Advance Directive Response Recorded Date/ Time Living Will Yes May 24 12:22pm Power of Product Assembler 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 May 24, 2024 12:22pm Advance Directive Response Recorded Date/ Time Living Will Yes May 24 12:22pm Do you have a Healthcare Power of Product Assembler? 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 May 24, 2024 12:22pm Chief Complaint [...] Robotic Cholecystectomy w/grams June 042024 9:48am GALLBLADDER 3-June 14, 2024 9:4 5am ABDOMINAL PAIN September 11, 2024 5:22 pm Reason for Visit Admit Date Nausea May 21, 2024 8:35am Cholelithiasis June 04, 2024 8:5 2am S/P cholecystectomy June 14, 2024 9:4 5am Chief Complaint Admit Date Robotic Cholecystectomy w/grams June 042024 8:52am Robotic Cholecystectomy w/grams June 042024 9:48am GALLBLADDER -June 14, 2024 9:4 5am ABDOMINAL PAIN September 11, 2024 5:22 pm PULM HTN September 19, 2024 12:5 2pm Reason for Visit Admit Date Cholelithiasis June 04, 2024 8:5 2am S/P cholecystectomy June 14, 2024 9:4 5am Chief Complaint Admit Date ABDOMINAL PAIN September 11, 2024 5:22 pm PULM HTN September 19, 2024 12:5 2pm NAUSEA VOMITING October 30, 2024 10: 10am Chief Complaint Admit Date ABDOMINAL PAIN September 11, 2024 5:22 pm PULM HTN September 19, 2024 12:5 2pm NAUSEA VOMITING October 30, 2024 10: 10am NAUSEA November 19, 2024 12 :39pm Reason for Visit Admit Date Nausea October 30, 2024 10: 10am Vomiting October 30, 2024 10: 10am Additional Source Comments INFORMATION SOURCE (unrecogn ized section and content) DATE CREATED AUTHOR 07/05/2020 [facility] DATE CREATED AUTHOR AUTHOR'S ORGANIZ ATION 10/22/2022 [facility] DATE CREATED AUTHOR AUTHOR'S ORGANIZ ATION 12/04/2024 [facility] Goals (unrecognized section and content) Goals may [...] or prosecute any alcohol or drug abuse patient.[facility] HospitalIn the event this information is protected by the Federal Confidentiality of Alcohol and Drug Abuse Patient Records regulations: The Federal rules restrict any use of the information to criminally investigate or prosecute any alcohol or drug abuse patient.[facility] HospitalIn the event this information is protected by the Federal Confidentiality of Alcohol and Drug Abuse Patient Records regulations: The Federal rules restrict any use of the information to criminally investigate or prosecute any alcohol or drug abuse patient.[facility] HospitalIn the event this information is protected by the Federal Confidentiality of Alcohol and Drug Abuse Patient Records regulations: The Federal rules restrict any use of the information to criminally investigate or prosecute any alcohol or drug abuse patient.[facility] HospitalIn the event this information is protected by the Federal Confidentiality of Alcohol and Drug Abuse Patient Records regulations: The Federal rules restrict any use of the information to criminally investigate or prosecute any alcohol or drug abuse patient.[facility] HospitalIn the event this information is protected by the Federal Confidentiality of Alcohol and Drug Abuse Patient Records regulations: The Federal rules restrict any use of the information to criminally investigate or prosecute any alcohol or drug abuse patient.[facility] HospitalIn the event this information is protected by the Federal Confidentiality of Alcohol and Drug Abuse Patient Records regulations: The Federal rules restrict any use of the information to criminally investigate or prosecute any alcohol or drug abuse patient.[facility] HospitalIn the event this information is protected by the Federal Confidentiality of Alcohol and Drug Abuse Patient Records regulations: The Federal rules restrict any use of the information to criminally investigate or prosecute any alcohol or drug abuse patient.[facility] HospitalIn the event this information is protected by the Federal Confidentiality of Alcohol and Drug Abuse Patient Records regulations: The Federal rules restrict any use of the information to criminally investigate or prosecute any alcohol or drug abuse patient.[facility] Reason for Visit (unrecogniz ed section and content) Reason Comments ER F/U [facility] elevated heart r ate Reason Onset Date [...] Care Teams (unrecognized sec tion and content) Packager Hand Relationship Specialty Start Date End Date Virgilio Rojas MD [address] [place], [place] [id number] PCP - General Family Practice 12/01/16 Packager Hand Relationship Specialty Start Date End Date Virgilio Rojas MD [address] [place] [address] PCP - General Family Practice 12/01/16 Packager Hand Relationship Specialty Start Date End Date Virgilio Rojas MD [facility] [place] [address] PCP - General Family Practice 12/01/16 Packager Hand Relationship Specialty Start Date End Date Virgilio Rojas MD [address] [place], [place] [id number] PCP - General Family Practice 12/01/16 Packager Hand Relationship Specialty Start Date End Date Virgilio Rojas MD [address] [place], [place] [id number] PCP - General Family Medicine 12/01/16 Packager Hand Relationship Specialty Start Date End Date Virgilio Rojas MD [address] [place], [place] [id number] PCP - General Family Medicine 12/01/16 Team Status: Active Member Role Status Dates Dr. Virgilio Rojas MD Family Provider Active Dr. Virgilio Rojas MD Primary Care Provider Active Team Status: Inactive Member Role Status Dates Dr. Virgilio Rojas MD Primary Care Provider Active Dr. Nathanael Mustafa DO Attending Provider, Referrin g Provider Active Packager Hand Relationship Specialty Start Date End Date Virgilio Rojas MD [address] [place], [place] [id number] PCP - [facility] Medicine 12/01/16 Team Status: Active Member Role Status Dates Dr. Virgilio Rojas MD Family Provider Active Dr. Catherine Magana DO Primary Care Provider Active Team Status: Inactive Member Role Status Dates Dr. Catherine Magana DO Primary Care Provide r, Attending Provider, Referring Provider Active Team Status: Active Member Role Status Dates Dr. Catherine Magana DO Primary Care Provide r, Attending Provider, Referring Provider Active Team Status: Active Member Role Status Dates Dr. Catherine Magana DO Primary Care Provider Active Dr. Camryn Argueta MD Attending Provider Activ e Packager Hand Relationship Specialty Start Date End Date Virgilio Rojas MD [address] [place], [place] [id number] PCP - General Family Medicine 12/01/16 04/28/23 [...] September 11, 2024 End: September 11, 2024 Team Status: Active Member Role/Relationship Status Dates Dr. Catherine Magana DO Primary Care Provider Active Team Status: Inactive Member Role/Relationship Status Dates Dr. Catherine Magana DO Primary Care Provider Active Start: June 04, 2024 End: June 04, 2024 Dr. Roberto Parker MD Attending Provider Active Start: June 04, 2024 End: June 04, 2024 Dr. Roberto Parker MD Referring Provider Active Start: June 04, 2024 End: June 04, 2024 Team Status: Active Member Role/Relationship Status Dates Dr. Catherine Magana DO Primary Care Provider Active Start: June 04, 2024 Dr. Roberto Parker MD Attending Provider Active Start: June 04, 2024 Dr. Roberto Parker MD Referring Provider Active Start: June 04, 2024 Dr. Roberto Parker MD Other Provider Active St art: June 04, 2024 Team Status: Inactive Member Role/Relationship Status Dates Dr. Catherine Magana DO Primary Care Provider Active Start: June 14, 2024 End: June 14, 2024 Dr. Catherine Magana DO Referring Provider Active St art: June 14, 2024 End: June 14, 2024 Krystyna LOPEZ PA-C Attending Provider Active Start: June 14, 2024 End: June 14, 2024 Team Status: Inactive Member Role/Relationship Status Dates Dr. Catherine Magana DO Primary Care Provider Active Start: September 11, 2024 End: September 11, 2024 Dr. Catherine Magana DO Attending Provider Active St art: September 11, 2024 End: September 11, 2024 Dr. Catherine Magana DO Referring Provider Active St art: September 11, 2024 End: September 11, 2024 Team Status: Inactive Member Role/Relationship Status Dates Dr. Catherine Magana DO Primary Care Provider Active Start: September 19, 2024 End: September 19, 2024 Dr. Bridgette Casillas MD Attending Provider Active Start: September 19, 2024 End: September 19, 2024 Dr. Bridgette Casillas MD Referring Provider Active Start: September 19, 2024 End: September 19, 2024 Team Status: Active Member Role/Relationship Status Dates Dr. Catherine Magana DO Primary Care Provider Active Start: September 19, 2024 Dr. Vaibhav North MD Attending Provider Active S tart: September 19, 2024 Team Status: Inactive Member Role/Relationship Status Dates Dr. Catherine Magana DO Primary Care Provider Active Start: September 11, 2024 End: September 11, 2024 Dr. Catherine Magana DO Attending Provider Active St art: September 11, 2024 End: September 11, 2024 Dr. Catherine Magana DO Referring Provider Active St art: September 11, 2024 End: September 11, 2024 Team Status: Inactive Member Role/Relationship Status Dates Dr. Catherine Magana DO Primary Care Provider Active Start: September 19, 2024 End: September 19, 2024 Dr. Bridgette Casillas MD Attending Provider Active Start: September 19, 2024 End: September 19, 2024 Dr. Bridgette Casillas MD Referring Provider Active Start: September 19, 2024 End: September 19, 2024 Team Status: Active Member Role/Relationship Status Dates Dr. Catherine Magana DO Primary Care Provider Active Start: September 19, 2024 Dr. Vaibhav North MD Attending Provider Active S tart: September 19, 2024 Team Status: Inactive Member Role/Relationship Status Dates Dr. Catherine Magana DO Primary Care Provider Active Start: October 30, 2024 End: October 30, 2024 Dr. Catherine Magana DO Referring Provider Active St art: October 30, 2024 End: October 30, 2024 Dr. Daljit Matos DO Attending Provider Active Start: October 30, 2024 End: October 30, 2024 Team Status: Inactive Member Role/Relationship Status Dates Dr. Catherine Magana DO Primary Care Provider Active Start: November 19, 2024 End: November 19, 2024 Dr. Daljit Matos DO Attending Provider Active Start: November 19, 2024 End: November 19, 2024 Dr. Daljit Matos DO Referring Provider Active Start: November 19, 2024 End: November 19, 2024 FOR RECORDS PERTAINING TO PATIENTS WHO [...] BE BASED ON THE PRIMARY CLINICAL RECORDS. [facility] [employer] provides no warranty or guarantee of the accuracy or completeness of information in this document.
[2024-12-06] MEDS: Lactated Ringers 1,000 ML 15 ML IV (07:38)
--- NOTE | 2024-12-06 07:44 | PRE.ANES_ITS ---
ASA Classification* ASA Classification ASA Classification: 2 Assessment & Plan Anesthesia* Anesthesia Assessment Anesthesia Assessment: Discussed sedation and/or anesthesia options, risks, benefits, and alternatives with patient/parents/legal guardian/POA. Questions invited. The patient/parents/legal guardian/POA seems to understand and agrees to proceed with anesthesia plan. Reviewed the physical assessment, medical history, allergy history and patient home medications list prior to surgery/procedure/anesthetic and documented any changes. Performed airway and anesthesia risk assessments. Anesthesia Type Anesthesia Type: MAC History Source History Obtained from:: Patient and Chart Anesthesia Focused Assessment* Temperature: 97.6 F Pulse Rate: 60 Blood Pressure: 129/60 Respiratory Rate: 14 Pulse Ox: 97 Oxygen Delivery Method: Room Air Airway Assessment Mouth opens: >3 cm Mallampati Score: IV Teeth Condition: Caps/Crowns (patient has multiple crowns. They are all tight.) Neck Range of motion (ROM): Limited ROM (Slight Decrease) Labs Anesthesia Preop lab: CBC WBC 7.2 K/mm3 (4.4-11.0) 06/14/21 15:00 06/14/21 RBC 4.76 M/mm3 (4.2-5.4) 06/14/21 15:00 06/14/21 Hgb 15.0 g/dL (12.0-15.0) 06/14/21 15:00 06/14/21 Hct 44.3 % (37-47) 06/14/21 15:00 06/14/21 Plt Count 194 K/mm3 (150-450) 06/14/21 15:00 06/14/21 CHEMISTRY Potassium 3.4 mmol/L (3.5-5.1) L 06/14/21 15:00 06/14/21 Sodium 144 mmol/L (136-145) 06/14/21 15:00 06/14/21 BUN 12 mg/dL (7-18) 06/14/21 15:00 06/14/21 Creatinine 0.73 mg/dL (0.55-1.02) 06/14/21 15:00 06/14/21 Glucose 90 mg/dL (74-106) 06/14/21 15:00 06/14/21 TSH 1.57 uIU/mL (0.358-3.74) 06/14/21 15:00 COAG Pre-Assessment Diagnosis/Proposed Procedure Planned Operative Procedure(s): EGD Anesthesia History Anesthesia History - underbaster: Anesthesia History - underbaster Hx Hospitalization No 12/04/24 14:26 Any Problems With Anesthesia No 12/04/24 14:26 Cholinesterase deficiency No 12/04/24 14:26 You/Your Family Experience No 12/04/24 14:26 fever (hyperthermia) with Relationship Recent Exposure to Contagious No 12/06/24 07:31 Disease Does patient have nerve No 12/04/24 14:26 stimulator Patient instructed to have device shut off --Does patient have Pacemaker No 12/06/24 07:31 or ICD? When Was Last Pacemaker Check QUESTION #4 FULL TEXT: You/Your Family Experience fever (hyperthermia) with Anesthesia Last Oral Intake Last Oral intake: Last Oral Intake NPO since 20:00 12/06/24 07:31 Meds taken in AM with sips of water? Meds patient instructed to take am of surgery PONV PONV - underbaster: PONV - underbaster Female Yes 12/04/24 14:26 HX of Motion Sickness No 12/04/24 14:26 HX of N/V After Surgery No 12/04/24 14:26 Non-Smoker Yes 12/04/24 14:26 Duration of Surgery greater No 12/04/24 14:26 than 60 minutes Number of Risk Factors 2 12/04/24 14:26 PONV Score Moderate Risk 12/04/24 14:26 Height & Weight Height & Weight: Anesthesia: Height & Weight Height 5 ft 12/06/24 07:31 Weight: 78.5 kg 12/06/24 07:31 Body Mass Index (BMI) 33.7 12/06/24 07:31 Respiratory Assessment Respiratory Assessment - underbaster: Respiratory Tract Infection Hx - underbaster Hx Respiratory Tract Infection No 12/04/24 14:26 STOP Sleep Apnea STOP Sleep Apnea - underbaster: STOP Sleep Apnea - underbaster Hx Hypertension No 12/04/24 14:26 Hx Sleep Apnea No 12/04/24 14:26 CPAP BIPAP Do you snore loudly (louder No 12/04/24 14:26 than talking or can be heard Do you often feel tired/ No 12/04/24 14:26 fatigued/ sleepy during daytime? Has anyone observed you stop No 12/04/24 14:26 breathing during sleep? STOP Results Negative 12/04/24 14:26 QUESTION #5 FULL TEXT : Do you snore loudly (louder than talking or can be heard through closed doors)? 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 Specify any problems Hx of Preganancy in last 3 No 12/04/24 14:26 Months Nurse Filling Out Transfusion MGRIFFITH 12/04/24 14:26 & Questions: Date: 12/04/24 12/04/24 14:26 Time: 14:28 12/04/24 14:26 Patient unable to answer at this time (ie. confused, unrespo /Reproduction History /Reproductive History - underbaster: /Reproductive Hx- underbaster Hx Now No 12/04/24 14:26 Gestational Age (in weeks): EDC: Hx Hx Para Hx Section SAB No 12/04/24 14:26 Active Medications Active Medications: Current Medications Generic Name Dose Route Start Last Admin Trade Name Freq PRN Reason Stop Dose Admin Lactated Ringer's 1,000 mls @ 15 mls/hr 12/06/24 07:30 12/06/24 07:38 IV 15 mls/hr .Q48H RASHI Administration PFSH Medical History (Updated 12/06/24 @ 07:[address] Kingston Blandon MD) Easy bruising Wears hearing aid Arthritis High cholesterol Shortness of breath on exertion History of Holter monitoring History of echocardiogram Hypertension Nausea Cholelithiasis Wears glasses Post-menopausal Bladder disease Gastric reflux Non-smoker History of edema Cardiology follow-up encounter History of stress test Osteoporosis Blind right eye Mermentau's disease Home Medications ?Medication ?Instructions ?Recorded ?Last Taken ?Type omeprazole 20 mg capsule,delayed 20 mg PO BID 03/05/24 12/05/24 History release rosuvastatin 5 mg tablet 5 mg PO QODAY 03/05/2412/03 History ascorbic acid (vitamin C) 500 mg 500 mg PO BID 5 12/05/24 History tablet (C-500) valacyclovir 500 mg tablet 500 mg PO QDAY PRN HERPES 0 10/30/24 Unknown History CRANBERRY BENEFITS 400 mg PO BID 12/04/2412/05 History cholecalciferol (vitamin D3) 25 25 mcg PO .QOD 5 12/04/24 History mcg (1,000 unit) capsule (Vitamin D3) Allergy/AdvReac Type Severity Reaction Status Date / Time No Known Allergies Allergy Verified 12/06/24 07:30 Surgical History S/P cholecystectomy Hx of bladder repair surgery Hx of colonoscopy Hx of foot surgery History of blepharoplasty H/O carpal tunnel repair History of cardiac catheterization Hx of left cataract extraction History of strabismus surgery History of appendectomy Social History Smoking Status: Never smoker alcohol intake: never substance use type: does not use Review of Systems (Anesthesia) ROS Narrative System reviewed and no additional complaints, except as documented.
--- NOTE | 2024-12-06 08:15 | EGD_PTH ---
PATIENT: LUCRECIA COONEY LOC: EN U#:[id number] AGE/SX: 84/F ROOM: RE12/06/[address]: Dr. Daljit Matos DO : 1940 BED: DIS: 12/06/2024 SPEC #: [id number] RECD: 12/06/24 14:34 STATUS: KELBY RETyler #: [id number] ALISSA: 12/06/24 08:[address]: Daljit Matos DEPT: SURGICAL PATHOLOGY RECD BY: Flynn Nieto ENTERED: 12/06/24 15:14 SP TYPE: EGD BIOPSY OT DR: Dr. Catherine Magana DO Tissues: A - Gastric mucous membrane Procedures: Surgery Specimen Level IV HEADER OPERATION: EGD with biopsy PRE-OP DIAGNOSIS: Vomiting, acid reflux, nausea TISSUE SUBMITTED: A- Gastric body biopsy MICROSCOPIC DIAGNOSIS A. Stomach, gastric body, biopsy: * Oxyntic mucosa with mild chronic inflammation * No morphologic evidence of Helicobacter pylori organisms MICROSCOPIC DESCRIPTION Slides are reviewed. GROSS DESCRIPTION A. Received in fixative is one container labeled with the patient's name and designated Gastric body biopsy. The specimen consists of four irregular fragments of light george soft tissue that measure 0.3 to 0.6 cm. The specimen is totally submitted in one cassette. [place] 12/06/2024 CPT:22435
--- NOTE | 2024-12-06 08:20 | PCM.HP.STD ---
HPI - General General Date of Admission: 12/06/24 Date of Service: 12/06/24 Chief Complaint: nausea HPI Narrative LUCRECIA COONEY, is a 84 F who presents nausea *[facility] established 8.5.25 pt presents with referral from Internal Medicine for N/V. Pt reports for the past few years she will have intermittent / infrequent episodes of nausea and vomiting, only in the evening. Pt reports her last episode was in July 2024, states that since then she has started sleeping on her left side when she feels nauseated and that relieves her symptoms. Pt reports she has not noticed a pattern as to what causes the nausea, but states it is only in the evening / night. Is currently taking Omeprazole 20mg BID. [facility] Medical History Easy bruising Wears hearing aid Arthritis High cholesterol Shortness of breath on exertion History of Holter monitoring History of echocardiogram Hypertension Nausea Cholelithiasis Wears glasses Post-menopausal Bladder disease Gastric reflux Non-smoker History of edema Cardiology follow-up encounter History of stress test Osteoporosis Blind right eye Mason's disease Home Medications ?Medication ?Instructions ?Recorded ?Last Taken ?Type omeprazole 20 mg capsule,delayed 20 mg PO BID 03/05/24 12/05/24 History release rosuvastatin 5 mg tablet 5 mg PO QODAY 03/05/24 12/03/24 History ascorbic acid (vitamin C) 500 mg 500 mg PO BID 05/24/24 12/05/24 History tablet (C-500) valacyclovir 500 mg tablet 500 mg PO QDAY PRN HERPES 10/30/24 Unknown History CRANBERRY BENEFITS 400 mg PO BID 12/04/24 12/05/24 History cholecalciferol (vitamin D3) 25 25 mcg PO .QOD 12/04/24 12/04/24 History mcg (1,000 unit) capsule (Vitamin D3) Allergy/AdvReac Type Severity Reaction Status Date / Time No Known Allergies Allergy Verified 12/06/24 07:30 Surgical History S/P cholecystectomy Hx of bladder repair surgery Hx of colonoscopy Hx of foot surgery History of blepharoplasty H/O carpal tunnel repair History of cardiac catheterization Hx of left cataract extraction History of strabismus surgery History of appendectomy Social History Smoking Status: Never smoker alcohol intake: never substance use type: does not use ROS Constitutional Constitutional: Denies fatigue, fever(s), poor appetite, weight gain or weight loss Gastrointestinal Gastrointestinal: Denies belching, bloating, change in bowel habits, change in stool character, chewing difficulty, coffee ground emesis, constipation, cramping, diarrhea, dyspepsia, dysphagia, early satiety, excessive flatus, fecal incontinence, heartburn, hematemesis, hematochezia, hemorrhoids, loose stools, melena, nausea, odynophagia, rectal bleeding, tenesmus, vomiting or weight changes Vital Signs Vital Signs Vital Signs: 12/06/24 07:31 12/06/24 07:31 12/06/24 07:51 Temperature 97.6 F L 97.6 F L Temperature Source Temporal Pulse Rate 60 60 Respiratory Rate 14 14 Respiratory Pattern Normal Blood Pressure 129/60 H 129/60 H Blood Pressure Mean 83 Blood Pressure Source Monitor Blood Pressure Position Semi-Fowlers Blood Pressure Location Left Arm Pulse Ox 97 97 Oxygen Delivery Method Room Air Room Air Weight Weight: 173 lb 1.006 oz Body Mass Index (BMI) 33.7 Physical Exam Const alert, oriented x3, no apparent distress and healthy appearing General Appearance: cooperative GI normal to inspection, nondistended, normoactive bowel sounds, soft to palpation, non-tender and non-distended Percussion: normal to percussion Rectal Exam: deferred Assessment & Plan Assessment/Plan (1) Vomiting: (2) Acid reflux: (3) Nausea: PLAN: Assessment and Plan Assessment and Plan (1) Nausea: Status: Acute (2) Vomiting: Status: Acute Plan: 84-year-old female presenting with a chief complaint of intermittent nausea and vomiting occurring primarily at night. She reports these symptoms started approximately three months ago and have been occurring 2-3 times per week. The nausea is described as a queasy feeling in her stomach, sometimes accompanied by a metallic taste in her mouth. Vomiting usually consists of undigested food and sometimes a small amount of bile. She denies any associated abdominal pain, fever, diarrhea, or constipation. She has not noticed any blood in her vomit or stools. No changes in appetite or weight loss noted, however, she reports the symptoms are disruptive to her sleep, leading to fatigue and impacting her overall quality of life.She has attempted self-treatment with [id number] antacids, which provide minimal and temporary relief. She also reports trying to elevate her head with pillows at night, but this hasn't significantly impacted the frequency or severity of the episodes. Past medical history is notable for: Chronic cholecystitis status post cholecystectomy Current medications : No relevant medicines that may be contributing to the symptoms Social History: living alone The differential diagnosis for nausea and vomiting in the elderly is broad and includes: Gastrointestinal Disorders:?GERD, gastritis, peptic ulcer disease, gastroparesis, or other motility disorders. Plan We will schedule gastric emptying study We will also schedule her for an EGD to evaluate upper GI tract. Continue PPI therapy Orders: Orders Gastric Emptying Study Today R11.0 - Nausea
--- NOTE | 2024-12-06 08:48 | OP.PROVAT_ITS ---
12/06/2024 Catherine Magana Re : Upper GI endoscopy procedure for Sugar Magana This procedure was performed on November. My impressions and recommendations are as follows: Impressions : - Normal esophagus. - Erythematous mucosa in the stomach. Biopsied. - No gross lesions in the entire examined duodenum. Recommendations : - Discharge patient to home. - Resume previous diet. - Continue present medications. - Await pathology results. -Carafate 1 g p.o. twice daily - Ursodiol 200 mg twice daily My findings are described in the full procedure note, which is enclosed. If I can be of further assistance, please feel free to contact me at . Sincerely, Daljit Matos, 12/06/2024 8:48:19 AM This report has been signed electronically.
--- NOTE | 2024-12-06 08:48 | OP.EGD_ITS ---
Patient Name: Sugar Glez Procedure Date: 12/06/2024 8:24 AM Date of : 1940 Age: 84 Procedure: Upper GI endoscopy Indications: Failure to respond to medical treatment Providers: Daljit Matos DO Referring MD: Catherine Magana Medicines: Monitored Anesthesia Care Patient Profile: This is an 84 year old female. Refer to note in patient chart for documentation of history and physical. Patient has symptoms of acute epigastric abdominal pain, chronic dyspepsia and chronic nausea. Complications: No immediate complications. Procedure: Pre-Anesthesia Assessment: - Prior to the procedure, a History and Physical was performed, and patient medications and allergies were reviewed. The patient is competent. The risks and benefits of the procedure and the sedation options and risks were discussed with the patient. All questions were answered and informed consent was obtained. Patient identification and proposed procedure were verified by the physician in the pre-procedure area. Mental Status Examination: alert and oriented. Airway Examination: normal oropharyngeal airway and neck mobility. Respiratory Examination: clear to auscultation. CV Examination: normal. Prophylactic Antibiotics: The patient does not require prophylactic antibiotics. Prior Anticoagulants: The patient has taken no anticoagulant or antiplatelet agents except for NSAID medication. ASA Grade Assessment: II - A patient with mild systemic disease. After reviewing the risks and benefits, the patient was deemed in satisfactory condition to undergo the procedure. The anesthesia plan was to use monitored anesthesia care (MAC). Immediately prior to administration of medications, the patient was re-assessed for adequacy to receive sedatives. The heart rate, respiratory rate, oxygen saturations, blood pressure, adequacy of pulmonary ventilation, and response to care were monitored throughout the procedure. The physical status of the patient was re-assessed after the procedure. After obtaining informed consent, the endoscope was passed under direct vision. Throughout the procedure, the patient's blood pressure, pulse, and oxygen saturations were monitored continuously. The Endoscope was introduced through the mouth, and advanced to the third part of the duodenum. Small bowel enteroscopy was deemed necessary. The upper GI endoscopy was accomplished without difficulty. The patient tolerated the procedure well. Scope In: 8:38:36 AM Scope Out: 8:41:45 AM Total Procedure Duration Time 0 hours 3 minutes 9 seconds Findings: The examined esophagus was normal. Diffuse severely erythematous mucosa without bleeding was found in the entire examined stomach. Biopsies were taken with a cold forceps for histology. Verification of patient identification for the specimen was done. Estimated blood loss was minimal. Biopsies were taken with a cold forceps for Helicobacter pylori testing. Verification of patient identification for the specimen was done. Estimated blood loss was minimal. No gross lesions were noted in the entire examined duodenum. Impression: - Normal esophagus. - Erythematous mucosa in the stomach. Biopsied. - No gross lesions in the entire examined duodenum. Recommendation: - Discharge patient to home. - Resume previous diet. - Continue present medications. - Await pathology results. -Carafate 1 g p.o. twice daily - Ursodiol 200 mg twice daily Procedure Code(s): --- Professional --- 43147, Small intestinal endoscopy, enteroscopy beyond second portion of duodenum, not including ileum; with biopsy, single or multiple CPT copyright 2021 [employer]. All rights reserved. The codes documented in this report are preliminary and upon beater worker helper review may be revised to meet current compliance requirements. Daljit Matos DO 12/06/2024 8:48:19 AM This report has been signed electronically. Number of Addenda: 0 Note Initiated On: 12/06/2024 8:24 AM
--- NOTE | 2024-12-06 08:48 | PCM.POST.ANE ---
Anesthesia: Postop Eval I Current Vital Signs Temperature: 97.4 F Pulse Rate: 72 Blood Pressure: 124/74 Respiratory Rate: 18 Pulse Ox: 98 Oxygen Delivery Method: Room Air Assessment Airway patent: Yes Spontaneous unlabored respirations: Yes Mental status: Awake nausea: No Vomiting: No Anesthesia Complication: No Fluid Hydration Crystalloid volume administer (ml): 100 Total IV fluid infused: 100 Progress Note Anesthesia document: Postop Eval 1 completed: Yes
--- NOTE | 2024-12-06 09:58 | POSTOPAN2_ITS ---
Anesthesia Postop Eval I Sum Postop Eval Completion status Anesthesia document: Postop Eval 1 completed: Yes Anesthesia Postop Eval I Summary Anesthesia Postop Eval I Summary: Anesthesia Postop Eval I: Assessment Summary Airway patent Yes 12/06/24 08:49 EMBROIDERY CUTTER.MEDM Spontaneous unlabored Yes 12/06/24 08:49 EMBROIDERY CUTTER.MEDM respirations Mental status Awake 12/06/24 08:49 EMBROIDERY CUTTER.MEDM nausea No 12/06/24 08:49 EMBROIDERY CUTTER.MEDM Vomiting No 12/06/24 08:49 EMBROIDERY CUTTER.MEDM Anesthesia Postop Eval I: Fluid Summary Crystalloid volume administer 100 12/06/24 08:49 EMBROIDERY CUTTER.MEDM (ml) Colloids volume administered ( ml) Blood Product volume administered (ml) Total IV fluid infused 100 12/06/24 08:49 EMBROIDERY CUTTER.MEDM Anesthesia Postop Eval I: Summary Notes Anesthesia Complication No 12/06/24 08:49 EMBROIDERY CUTTER.MEDM Anesthesia Complication Comment: Post-operative progress note Anesthesia: Postop Eval II Evaluation Mental status: Awake and Calm Pain Level: 0 nausea: No Vomiting: No Complications Anesthesia Complication: No
--- NOTE | 2024-12-06 09:58 | PCM.POSTANE2 ---
Anesthesia Postop Eval I Sum Postop Eval Completion status Anesthesia document: Postop Eval 1 completed: Yes Anesthesia Postop Eval I Summary Anesthesia Postop Eval I Summary: Anesthesia Postop Eval I: Assessment Summary Airway patent Yes 12/06/24 08:49 SOLAR MECHANICAL ENGINEER.MEDM Spontaneous unlabored Yes 12/06/24 08:49 SOLAR MECHANICAL ENGINEER.MEDM respirations Mental status Awake 12/06/24 08:49 SOLAR MECHANICAL ENGINEER.MEDM nausea No 12/06/24 08:49 SOLAR MECHANICAL ENGINEER.MEDM Vomiting No 12/06/24 08:49 SOLAR MECHANICAL ENGINEER.MEDM Anesthesia Postop Eval I: Fluid Summary Crystalloid volume administer 100 12/06/24 08:49 SOLAR MECHANICAL ENGINEER.MEDM (ml) Colloids volume administered ( ml) Blood Product volume administered (ml) Total IV fluid infused 100 12/06/24 08:49 SOLAR MECHANICAL ENGINEER.MEDM Anesthesia Postop Eval I: Summary Notes Anesthesia Complication No 12/06/24 08:49 SOLAR MECHANICAL ENGINEER.MEDM Anesthesia Complication Comment: Post-operative progress note Anesthesia: Postop Eval II Evaluation Mental status: Awake and Calm Pain Level: 0 nausea: No Vomiting: No Complications Anesthesia Complication: No
== END 2024-12-06 09:33 | disposition home or self-care (01) ==
LOC: EN 07:13 → AC 07:16
PROVIDERS: PCP Internal Medicine; Referring Provider Internal Medicine; Visit Provider Internal Medicine Gastroenterology
PROC: 0DJ08ZZ Inspection of Upper Intestinal Tract, Via Natural or Artificial Opening Endoscopic (ICD-10-PCS; CPT 43235; principal; 2024-12-06 08:10)
DX: K29.50 Unspecified chronic gastritis without bleeding (principal); K21.9 Gastro-esophageal reflux disease without esophagitis; E78.00 Pure hypercholesterolemia, unspecified; I10 Essential (primary) hypertension; Z79.899 Other long term (current) drug therapy
CPT/HCPCS: 44361; 88305

== ENCOUNTER → 2025-02-13 | Outpatient (CLI) | payer MEDICARE, SELFPAY ==
[2025-02-13 10:29] LABS: Color, Urine Yellow (Yellow); Glucose, Dipstick Normal (Normal); Ketone-Dipstick 15 mg/dl (Negative); Leukocyte Esterase-Dipstick Negative /ul (Negative); Nitrite-Dipstick Negative (Negative); Occult Blood-Urine 10 /ul (Negative); Protein-Dipstick 15 mg/dl (Negative); Specific Gravity, Urine 1.020 (1.002-1.030); Urine Bilirubin Dipstick Negative (Negative)
[2025-02-13 10:32] LABS: Hematocrit 44.5 % (37-47); Hemoglobin 14.4 g/dL (12.0-15.0); Immature Granulocytes Count 0.010 X10^3/uL (0.0-0.0); Mean Corp Hgb Conc 32.4 g/dL (32-36); Mean Corpuscular Volume 94.7 fL (81-99); Mean Platelet Vol. 9.7 fl (6.2-12.0); NRBC Flagged by Analyzer 0 % (0-5); Platelet Count 240 K/mm3 (150-450); RBC Distribution Width CV 12.7 % (11.6-14.6); RBC Distribution Width SD 44.4 fl (35.1-43.9); Red Blood Count 4.70 M/mm3 (4.2-5.4); White Blood Count 6.0 K/mm3 (4.4-11.0)
[2025-02-13 10:34] LABS: Mucous, Urine RARE /hpf (<or=2+); Red Blood Cells-Urine 0-5 SEEN /hpf (0-5); Squamous Epithelial Cells - UA 0-5 SEEN /hpf (5-10)
[2025-02-13 10:51] LABS: AST(SGOT) 18 U/L (<=31); Alanine Aminotransfer ALT/SGPT 15 U/L (<=34); Albumin, Serum 4.2 g/dL (3.4-4.8); Alkaline Phosphatase 71 U/L (35-104); Anion Gap 10 (5-15); BUN 17 mg/dL (4-19); BUN/Creat Ratio 25.4 RATIO (10-20); Calcium,Total 9.4 mg/dL (7.6-11.0); Carbon Dioxide 27.5 mmol/L (21.0-32.0); Chloride 103 mmol/L (98-108); Globulin 2.0 g/dL (2.2-4.2); Glucose 92 mg/dL (70-99); Potassium 4.5 mmol/L (3.3-5.1)
== END | disposition home or self-care (01) ==
LOC: LABSPEC 10:19
PROVIDERS: PCP Internal Medicine; Referring Provider Internal Medicine; Visit Provider Internal Medicine
DX: R11.2 Nausea with vomiting, unspecified (principal); R82.90 Unspecified abnormal findings in urine
CPT/HCPCS: 80053; 81001; 85025; 87086; 87088

== ENCOUNTER → 2025-03-07 | Outpatient (CLI) | payer MEDICARE, SELFPAY ==
[2025-03-07 10:57] LABS: CRP 3.09 mg/L (0.0-3.0)
[2025-03-08 14:09] LABS: ANTINUCLEAR ANTIBODIES DIRECT Negative (Negative)
[2025-03-12 09:08] LABS: Immunoglobulin A 34 mg/dL (64-422); Immunoglobulin G 708 mg/dL (586-1602); Immunoglobulin M 47 mg/dL (26-217); PROEL- A/G Ratio 1.5 (0.7-1.7); PROEL- Albumin 3.6 g/dL (2.9-4.4); PROEL- Alpha-1 Globulin 0.2 g/dL (0.0-0.4); PROEL- Alpha-2 Globulin 0.6 g/dL (0.4-1.0); PROEL- Beta Globulin 0.9 g/dL (0.7-1.3); PROEL- Gamma Globulin 0.6 g/dL (0.4-1.8); PROEL- Globulin, Total 2.4 g/dL (2.2-3.9); PROEL- TOTAL PROTEIN 6.0 g/dL (6.0-8.5); PROEL-M-Spike Comment: g/dL (Not Observed); PROELU- Albumin, Urine 17.7 % (.); PROELU- Alpha-1-Globulin,Ur 7.5 % (.); PROELU- Alpha-2-Globulin,Ur 12.3 % (.); PROELU- Beta Globulin, Ur 39.4 % (.); PROELU- Gamma Globulin, Ur 23.1 % (.); Total Protein, Ur < 4.0 mg/dL (Not Estab.)
== END | disposition home or self-care (01) ==
LOC: CIMLAB 08:54
PROVIDERS: PCP Internal Medicine; Referring Provider Internal Medicine; Visit Provider Internal Medicine
DX: R79.82 Elevated C-reactive protein (CRP) (principal); R79.89 Other specified abnormal findings of blood chemistry
CPT/HCPCS: 36415; 82784; 82785; 84165; 84166; 85652; 86038; 86140